=== PATIENT | female | born 1950 | race Caucasian/White ===

== ENCOUNTER 2016-08-31 15:15 | Inpatient (IN) | payer OTHER ==
[2016-08-31 15:36] VITALS: BMI 22.2
[2016-08-31] MEDS ORDERED: IPRATROPIUM BR 0.02% 0.5 MG/2.5 ML VIAL.NEB. NEB ONE (15:48)
[2016-08-31] MEDS ORDERED: ALBUTEROL SO4 0.083% IH SOL 2.5 MG/3 ML VIAL.NEB. NEB ONE ×2 (15:48→16:44)
[2016-08-31] MEDS ORDERED: predniSONE 20 MG TABLET (UD) PO ONE (15:48)
[2016-08-31] MEDS ORDERED: PIPERACILLIN/TAZOB 3.375 GM/50 ML PRE-DOCKED IVPB ONE (15:48)
--- NOTE | 2016-08-31 15:58 | PDOC ---
History of Present Illness - General History Source: Patient, Long-Term Records, Old Records Exam Limitations: No Limitations <Black Vargas - Last Filed: 08/31/16 18:17> - General History Source: Patient Exam Limitations: No Limitations - History of Present Illness Initial Comments: 08/31/16 16:01 The patient is a 66 year old female with a significant past medical history of COPD, cigarette smoking, pressure ulcers secondary to immobility, sent from [facility] by ambulance to the Emergency Department with shortness of breath, low O2 sat (88), and UTI. The patient reports that she has had shortness of breath, and a cough for weeks that has become worse over the past 2 to 3 days. She describes the cough as nonproductive, as it stays in her chest. She admits to nebulizer treatments with little relief, as well as Prednisone started 2 days ago which she discontinued. She states that she recently had a chest XRay which was negative. She also reports that her blood pressure and heart rate have been high. The patient states that she was informed hours ago that she also has a UTI. Patient has multiple pressure ulcers due to immobility. The patient denies chest pain, palpitations, and diaphoresis. Patient denies fever, or chills. Patient denies nausea, vomiting, and diarrhea. Patient denies headache, dizziness, and visual changes. 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) COPD: Yes Psychiatric Problems: Yes (ANXIETY) Other medical history: Vit d deficiency, mUSCLE WEAKNESS, PRESSURE ULCERS - Surgical History Cardiac Surgery: Yes (AAtrial septal defect repair 1962) - Psycho/Social/Smoking Cessation Hx Suicidal Ideation: No Smoking History: Current every day smoker Have you smoked in the past 12 months: Yes Number of Cigarettes Smoked Daily: 4 Information on smoking cessation initiated: No Hx Alcohol Use: No Drug/Substance Use Hx: No <Black Vargas - Last Filed: 08/31/16 18:17> <Malinda Tyson - Last Filed: 08/31/16 18:20> - Past Medical History Allergies/Adverse Reactions: Allergies Allergy/AdvReac Type Severity Reaction Status Date / Time epinephrine Allergy Verified 08/31/16 15:42 procaine Allergy Verified 08/31/16 15:42 sulfamethoxazole Allergy Verified 08/31/16 15:42 trimethoprim Allergy Verified 08/31/16 15:42 Home Medications: Ambulatory Orders Albuterol 0.083% Nebulizer Bella [Ventolin 0.083%] 1 neb NEB QID PRN 08/31/16 Amino Acids/Protein Hydrolys [Pro-Stat Liquid] 30 ml PO BID 08/31/16 Amox-Tr/K Cl [Augmentin - 875Mg Tablet] 1 tab PO BID 08/31/16 Ascorbic Acid [Vitamin C -] 500 mg PO DAILY 08/31/16 Azithromycin [Zithromax -] 1 tab PO DAILY 08/31/16 Baclofen 10 mg PO DAILY 08/31/16 Calcium Carbonate/Vitamin D3 [Eq Calcium 500 + Vit D 400 Tab] 1 each PO BID 04/18 Citalopram Hydrobromide [Celexa -] 20 mg PO DAILY 08/31/16 Diazepam [Valium] 5 mg PO HS 08/31/16 Docusate Sodium [Colace -] 100 mg PO DAILY 08/31/16 Enoxaparin [Lovenox -] 40 mg SQ DAILY 08/31/16 Guaifenesin [Robitussin -] 10 ml PO Q6H PRN 08/31/16 Loperamide HCl [Imodium A-D] 2 mg PO PRN 08/31/16 Magnesium Hydroxide [Milk of Magnesia] 400 mg PO PRN 08/31/16 Na Phos,M-B/Na Phos,Di-Ba [Fleet Enema] 133 ml RC PRN 08/31/16 Nystatin/Triamcinolone Top Cr [Mycolog II Cream -] 1 applic TP BID 08/31/16 Sennosides [Senna] 8.6 mg PO HS 08/31/16 Zinc Sulfate 220 mg PO DAILY 08/31/16 Review of Systems - Review of Systems Able to Perform ROS?: Yes Comments:: 08/31/16 16:01 CONSTITUTIONAL: Reported: + tachycardic, + high blood pressure No reported: Fever, Chills, Diaphoresis, Generalized Weakness, Malaise, Loss of Appetite HEENT: No reported: Rhinorrhea, Nasal Congestion, Throat Pain, Throat Swelling, Difficulty Swallowing, Mouth Swelling, Ear Pain, Eye Pain, Visual Changes CARDIOVASCULAR: No reported: Chest Pain, Syncope, Palpitations, Irregular Heart Rate, Lightheadedness, Peripheral Edema RESPIRATORY: Reported: + nonproductive cough, + shortness of breath, + low O2 sat No reported: SOB with Exertion, Orthopnea, Wheezing, Stridor, Hemoptysis GASTROINTESTINAL: No reported: Abdominal pain, Abdominal Distension, Nausea, Vomiting, Diarrhea, Constipation, Melena, Hematochezia GENITOURINARY: Reported: + UTI No reported: Frequency, Urgency, Hesitancy, Flank Pain, Genital Pain MUSCULOSKELETAL: No reported: Myalgia, Arthralgia, Joint Swelling, Back pain, Neck Pain SKIN: Reported: + pressure ulcers No reported: Rash, Itching, Pallor HEMATOLOGIC/IMMUNOLOGIC: No reported: Easy Bleeding, Easy Bruising, Lymphadenopathy, Frequent infections ENDOCRINE: No reported: Unexplained Weight Gain, Unexplained Weight Loss, Heat Intolerance , Cold Intolerance NEUROLOGIC: No reported: Headache, Focal Weakness, Paresthesias, Vertigo, Lightheadedness, Unsteady Gait, Seizure, Mental Status Changes, Incontinence PSYCHIATRIC: No reported: Anxiety, Depression <Malinda Tyson - Last Filed: 08/31/16 18:20> *Physical Exam - Vital Signs Last Vital Signs Temp Pulse Resp BP Pulse Ox 98 F 58 L 24 171/99 93 L 08/31/16 15:30 08/31/16 15:30 08/31/16 15:30 08/31/16 15:30 08/31/16 15:41 <Black Vargas - Last Filed: 08/31/16 18:17> - Vital Signs Last Vital Signs Temp Pulse Resp BP Pulse Ox 98 F 58 L 24 171/99 93 L 08/31/16 15:30 08/31/16 15:30 08/31/16 15:30 08/31/16 15:30 08/31/16 15:56 - Physical Exam Comments: 08/31/16 17:09 GENERAL: The patient is awake, alert, and fully oriented, Nontoxic - in no acute distress. HEAD: Normocephalic, atraumatic. EYES: extraocular movements intact, sclera anicteric, conjunctiva clear. ENT: Normal voice, Moist mucous membranes. NECK: Normal range of motion, No JVD LUNGS: Diffuse expiratory wheezing. Breath sounds equal, clear to auscultation bilaterally. No rhonchi, no rales. HEART: Regular rate and rhythm, normal S1 and S2 without murmur, rub or gallop. ABDOMEN: Soft, nontender, normoactive bowel sounds. No guarding, no rebound. No masses. No CVA tenderness EXTREMITIES: Normal range of motion, no edema. No clubbing or cyanosis. No cords , erythema, or tenderness. NEUROLOGICAL: No facial asymmetry, Normal speech, normal gait. PSYCH: Normal mood, normal affect. SKIN: Large stage 3 right gluteal ulcer, large sacral ulcer, left lower gluteal stage 4 ulcer with mild yellow drainage. <Malinda Tyson - Last Filed: 08/31/16 18:20> Heart Score/ECG Review #1 ECG reviewed & interpreted by me at: 16:00 08/31/16 16:11 NSR 67, no std/veto, normal axis, normal intervals, QTC 424 msec <Black Vargas - Last Filed: 08/31/16 18:17> ED Treatment Course - LABORATORY CBC & Chemistry Diagram: 08/31/16 16:15 08/31/16 16:15 - RADIOLOGY Radiology Studies Ordered: Category Date Time Status CHEST X-RAY PORTABLE* [RAD] Stat Radiology 08/31/16 15:47 Ordered <Blcak Vargas - Last Filed: 08/31/16 18:17> - LABORATORY CBC & Chemistry Diagram: 08/31/16 16:15 08/31/16 16:15 - RADIOLOGY Radiograph Interpretation: 08/31/16 16:15 Chest XRay As reviewed by Dr. Jose Avila IMPRESSION: Borderline cardiomegaly and mild atelectatic changes in the left lung base. <Malinda Tyson - Last Filed: 08/31/16 18:20> Medical Decision Making - Medical Decision Making 08/31/16 15:57 A portion of this note was documented by scribe services under my direction. I have reviewed the details of the note, within reason, and agree with the documentation with the following case summary and management plan written by me. Patient treated in the ED. Nursing notes are reviewed and incorporated into the medical decision-making. Vital signs reviewed. Peripheral IV access obtained by the nurse, laboratory studies are drawn and sent, reviewed and interpreted by myself. Vital Signs Temp Pulse Resp BP Pulse Ox 98 F 58 L 24 171/99 93 L 08/31/16 15:30 08/31/16 15:30 08/31/16 15:30 08/31/16 15:30 08/31/16 15:41 66-year-old female with history of COPD, squamous cell carcinoma of the breast, , multiple gluteal ulcers presents with shortness of breath. The patient reports 2-3 days of difficulty breathing and chest congestion. Denies fevers or chills or chest pain. States she's been having difficulty breathing. Was noted at [facility] to have an O2 saturation of 88% on RA. Patient was also instantly noted to be diagnosed with urinary tract infection. Was noted to have wound culture from August 29 to have positive for Proteus Mirabella's and Escherichia coli. This was pansensitive. As of note, patient also had on August 24, a biopsy of the gluteal ulcer but the results are pending. I suspect the patient is having COPD exacerbation. However, we'll also need to evaluate for urinary tract infection in addition to her gluteal ulcer potential infection. No sepsis protocol initiated. We'll start Zosyn. We'll likely need to add on vancomycin and azithromycin as well. We'll give nebs and prednisone and admit the patient to hospital. 08/31/16 18:17 Chest xray reviewed. No obvious infiltrates. UA pending. CBC, BMP 08/31/16 16:15 08/31/16 16:15 CMP Sodium 135 mmol/L (136-145) L 08/31/16 16:15 Potassium 4.8 mmol/L (3.5-5.1) 08/31/16 16:15 Chloride 94 mmol/L (98-107) L 08/31/16 16:15 Carbon Dioxide 28 mmol/L (21-32) 08/31/16 16:15 Anion Gap 13 (8-16) 08/31/16 16:15 BUN 12 mg/dL (7-18) 08/31/16 16:15 Creatinine 0.4 mg/dL (0.55-1.02) L 08/31/16 16:15 Creat Clearance w eGFR > 60 (>60) 08/31/16 16:15 Random Glucose 97 mg/dL (74-106) 08/31/16 16:15 Lactic Acid 1.0 mmol/L (0.4-2.0) 08/31/16 16:15 Calcium 9.3 mg/dL (8.5-10.1) 08/31/16 16:15 Total Bilirubin 0.2 mg/dL (0.2-1.0) 08/31/16 16:15 AST 20 U/L (15-37) 08/31/16 16:15 ALT 20 U/L (12-78) 08/31/16 16:15 Alkaline Phosphatase 132 U/L (45-117) H 08/31/16 16:15 Creatine Kinase 50 IU/L (26-192) 08/31/16 16:15 Troponin I < 0.02 ng/ml (0.00-0.05) 08/31/16 16:15 B-Natriuretic Peptide 235.71 pg/ml (5-125) H 08/31/16 16:15 Total Protein 6.5 g/dl (6.4-8.2) 08/31/16 16:15 Albumin 2.4 g/dl (3.4-5.0) L 08/31/16 16:15 Pt was given nebs and prednisone with some improvement, but with some persistent wheezing. O2 saturation is still high 80s. Improved with nasal canula. Pt given vanc and zosyn. Given these findings, decision was made to admit the patient. Case discussed with DR. Monae who accepts the patient for telemetry admission. Case discussed in detail with admitting physician including history, physical exam and ancillary studies. Admitting physician has assumed care for the patient, will follow all pending diagnostics and will complete the evaluation and treatment. <Black Vargas - Last Filed: 08/31/16 18:17> - Medical Decision Making 08/31/16 18:14 Dr. Monae was called at his office at 5:50. Awaiting call back. Dr. Monae was called at his office at 6:13. Awaiting call back. 08/31/16 18:16 Dr. Monae returned call at 6:[address] Vargas about the patient's care. <Malinda Tyson - Last Filed: 08/31/16 18:20> *DC/Admit/Observation/Transfer - Discharge Dispostion Admit: Yes <Black Vargas - Last Filed: 08/31/16 18:17> - Attestations Scribe Attestion: 08/31/16 16:02 Documentation prepared by Malinda Tyson, acting as medical education specialist for Black Vargas MD. <Malinda Tyson - Last Filed: 08/31/16 18:20> Diagnosis at time of Disposition: Wound infection, COPD exacerbation, Hypoxia - Referrals Referrals: Javed Ball [Primary Care Provider] -
[2016-08-31] MEDS ORDERED: PIPERACILLIN/TAZOB 3.375 GM 50 ML IVPB ONE (16:44)
[2016-08-31] MEDS ORDERED: predniSONE 20 MG TABLET (UD) ONE (16:44)
[2016-08-31 16:51] LABS: BASOPHIL 0.2 % (0-2.0); EOSINOPHIL 0.6 % (0-4.5); MCH 30.3 pg (25.7-33.7); MCHC 33.1 g/dl (32.0-36.0); MEAN CELL VOLUME 91.8 fl (80-96); NEUTROPHILS 86.3 % (42.8-82.8); PLATELET COUNT 368 K/MM3 (134-434); RDW 13.1 % (11.6-15.6)
[2016-08-31] MEDS ORDERED: methylPREDNISolone NA SUCC 125 MG/2 ML VIAL IVPB ONE (16:52)
[2016-08-31] MEDS ORDERED: methylPREDNISolone NA SUCC 125 MG/2 ML VIAL ONE (16:53)
[2016-08-31 17:16] LABS: ALBUMIN 2.4 g/dl (3.4-5.0); ANION GAP 13 (8-16); BILIRUBIN,TOTAL 0.2 mg/dL (0.2-1.0); CALCIUM 9.3 mg/dL (8.5-10.1); CO2 28 mmol/L (21-32); CREATININE 0.4 mg/dL (0.55-1.02); GLUCOSE,RANDOM 97 mg/dL (74-106); SGOT/AST 20 U/L (15-37); SGPT/ALT 20 U/L (12-78); TOT PROT 6.5 g/dl (6.4-8.2)
[2016-08-31 17:18] LABS: ALK PHOS 132 U/L (45-117); TROPONIN I < 0.02 ng/ml (0.00-0.05)
[2016-08-31] MEDS ORDERED: VANCOMYCIN 1,000 MG in DEXTROSE 5%-WATER - 250 ML IVPB ONE (17:52)
[2016-08-31] MEDS ORDERED: VANCOMYCIN 1 GRAM (PRE-DOCKED) 250 ML IVPB ONE (18:17)
[2016-08-31 18:28] LABS: INR 1.18 (0.82-1.09)
[2016-08-31 18:31] LABS: ACTIVATED PTT 28.1 SECONDS (26.9-34.4)
[2016-08-31] MEDS ORDERED: ALBUTEROL SO4 0.083% IH SOL 2.5 MG/3 ML VIAL.NEB. NEB PRN (20:24)
[2016-08-31] MEDS ORDERED: SODIUM PHOSPHATE/NA BIPHOS 133 ML ENEMA RC PRN (20:30)
[2016-08-31] MEDS: diazePAM 5 MG TABLET PO SCH (22:41)
[2016-08-31] MEDS: SENNOSIDES 8.6MG TABLET (FP) PO SCH (22:41)
[2016-08-31] MEDS: AMINO ACIDS/PROTEIN HYDROLYS 30 ML LIQUID.PKT PO SCH (22:41)
[2016-09-01] MEDS: PIPERACILLIN/TAZOB 3.375 GM/50 ML PRE-DOCKED IVPB SCH ×3 (02:08→10:33)
[2016-09-01 07:24] LABS: BASOPHIL 0.1 % (0-2.0); MCH 31.3 pg (25.7-33.7); MCHC 34.4 g/dl (32.0-36.0); MEAN CELL VOLUME 91.1 fl (80-96); NEUTROPHILS 90.6 % (42.8-82.8); PLATELET COUNT 328 K/MM3 (134-434); RDW 13.1 % (11.6-15.6); WHITE BLOOD COUNT 9.9 K/mm3 (4.0-10.0)
[2016-09-01 07:37] LABS: ANION GAP 9 (8-16); BILIRUBIN,TOTAL 0.3 mg/dL (0.2-1.0); CALCIUM 8.7 mg/dL (8.5-10.1); CO2 30 mmol/L (21-32); COCKROFT - GAULT 152.575; CREATININE 0.3 mg/dL (0.55-1.02); GLUCOSE,RANDOM 130 mg/dL (74-106); MAGNESIUM 2.3 mg/dL (1.8-2.4); SGOT/AST 12 U/L (15-37); SGPT/ALT 18 U/L (12-78); TOT PROT 5.7 g/dl (6.4-8.2)
[2016-09-01 07:39] LABS: ALK PHOS 111 U/L (45-117); TROPONIN I < 0.02 ng/ml (0.00-0.05)
--- NOTE | 2016-09-01 09:38 | EKG ---
Test Reason : Blood Pressure : / mmHG Vent. Rate : 050 BPM Atrial Rate : 050 BPM P-R Int : 136 ms QRS Dur : 080 ms QT Int : 426 ms P-R-T Axes : 103 001 125 degrees QTc Int : 388 ms SINUS BRADYCARDIA WITH MARKED SINUS ARRHYTHMIA NONSPECIFIC T WAVE ABNORMALITY ABNORMAL ECG Confirmed by RACHEL MILLAN MD ([id number]) on 09/01/2016 9:38:14 AM Referred By: LAURA WILSON Confirmed By:RACHEL MILLAN MD
--- NOTE | 2016-09-01 09:48 | EKG ---
Test Reason : Blood Pressure : / mmHG Vent. Rate : 067 BPM Atrial Rate : 067 BPM P-R Int : 144 ms QRS Dur : 068 ms QT Int : 402 ms P-R-T Axes : 000 002 051 degrees QTc Int : 424 ms POOR DATA QUALITY, INTERPRETATION MAY BE ADVERSELY AFFECTED SINUS RHYTHM WITH PREMATURE SUPRAVENTRICULAR COMPLEXES NO PREVIOUS ECGS AVAILABLE Confirmed by RACHEL MILLAN MD ([id number]) on 09/01/2016 9:48:24 AM Referred By: Confirmed By:RACHEL MILLAN MD
[2016-09-01] MEDS: NYSTATIN/TRIAMCINOLONE TOPICAL CREAM 15 GM TUBE TP SCH ×2 (10:00→22:27)
[2016-09-01] MEDS: CITALOPRAM HYDROBROMIDE 20 MG TABLET (FP) PO SCH (10:32)
[2016-09-01] MEDS: DOCUSATE SODIUM 100 MG CAPSULE (FP) PO SCH (10:32)
[2016-09-01] MEDS: ASCORBIC ACID 500 MG TABLET (FP) PO SCH (10:32)
[2016-09-01] MEDS: BACLOFEN 10 MG TABLET (FP) PO SCH (10:32)
[2016-09-01] MEDS: ENOXAPARIN NA (PORCINE) 40 MG/0.4 ML DISP.SYRIN SQ SCH (10:32)
[2016-09-01] MEDS: ZINC SULFATE 220 MG CAPSULE (FP) PO SCH (10:32)
[2016-09-01] MEDS: AMINO ACIDS/PROTEIN HYDROLYS 30 ML LIQUID.PKT PO SCH ×2 (10:35→22:28)
--- NOTE | 2016-09-01 10:38 | PN ---
Progress Note (short form) - Note Progress Note: ID Consult dictated Acute exacerbation COPD Acute bronchitis/possible LLL pneumonia UTI Decubitus ulcers Pending c/s, empiric ceftriaxone/ flagyl
--- NOTE | 2016-09-01 11:22 | HP ---
Admitting History and Physical - Primary Care Physician PCP: Rajesh Marrero - Admission Chief Complaint: DYSPNEA/SEPSIS/PNEUMONIA History of Present Illness: The patient is a 66 year old female with a significant past medical history of COPD, cigarette smoking, pressure ulcers secondary to immobility, sent from [facility] by ambulance to the Emergency Department with shortness of breath, low O2 sat (88), and UTI. The patient reports that she has had shortness of breath, and a cough for weeks that has become worse over the past 2 to 3 days. She describes the cough as nonproductive, as it stays in her chest. She admits to nebulizer treatments with little relief, as well as Prednisone started 2 days ago which she discontinued. She states that she recently had a chest XRay which was negative. She also reports that her blood pressure and heart rate have been high. The patient states that she was informed hours ago that she also has a UTI. Patient has multiple pressure ulcers due to immobility. The patient denies chest pain, palpitations, and diaphoresis. Patient denies fever, or chills. Patient denies nausea, vomiting, and diarrhea. Patient denies headache, dizziness, and visual changes. 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 ...: No - Past Surgical History Past Surgical History: Yes: Cholecystectomy, Tonsillectomy - Advance Directives Advance Directives: Yes: Health Care Proxy - Smoking History Smoking history: Current every day smoker Have you smoked in the past 12 months: Yes Aproximately how many cigarettes per day: 4 - Alcohol/Substance Use Hx Alcohol Use: No Home Medications - Allergies Allergies/Adverse Reactions: Allergies Allergy/AdvReac Type Severity Reaction Status Date / Time epinephrine Allergy Verified 08/31/16 15:42 procaine Allergy Verified 08/31/16 15:42 sulfamethoxazole Allergy Verified 08/31/16 15:42 trimethoprim Allergy Verified 08/31/16 15:42 - Home Medications Home Medications: Ambulatory Orders Albuterol 0.083% Nebulizer Bella [Ventolin 0.083%] 1 neb NEB QID PRN 08/31/16 Amino Acids/Protein Hydrolys [Pro-Stat Liquid] 30 ml PO BID 08/31/16 Amox-Tr/K Cl [Augmentin - 875Mg Tablet] 1 tab PO BID 08/31/16 Ascorbic Acid [Vitamin C -] 500 mg PO DAILY 08/31/16 Azithromycin [Zithromax -] 1 tab PO DAILY 08/31/16 Baclofen 10 mg PO DAILY 08/31/16 Calcium Carbonate/Vitamin D3 [Eq Calcium 500 + Vit D 400 Tab] 1 each PO BID 04/18 Citalopram Hydrobromide [Celexa -] 20 mg PO DAILY 08/31/16 Diazepam [Valium] 5 mg PO HS 08/31/16 Docusate Sodium [Colace -] 100 mg PO DAILY 08/31/16 Enoxaparin [Lovenox -] 40 mg SQ DAILY 08/31/16 Guaifenesin [Robitussin -] 10 ml PO Q6H PRN 08/31/16 Loperamide HCl [Imodium A-D] 2 mg PO PRN 08/31/16 Magnesium Hydroxide [Milk of Magnesia] 400 mg PO PRN 08/31/16 Na Phos,M-B/Na Phos,Di-Ba [Fleet Enema] 133 ml RC PRN 08/31/16 Nystatin/Triamcinolone Top Cr [Mycolog II Cream -] 1 applic TP BID 08/31/16 Sennosides [Senna] 8.6 mg PO HS 08/31/16 Zinc Sulfate 220 mg PO DAILY 08/31/16 Review of Systems - Review of Systems Constitutional: reports: Lethargy, Loss of Appetite, Malaise, Weakness Eyes: reports: No Symptoms HENT: reports: No Symptoms Neck: reports: No Symptoms Cardiovascular: reports: No Symptoms Respiratory: reports: SOB, SOB on Exertion Gastrointestinal: reports: No Symptoms Genitourinary: reports: No Symptoms Musculoskeletal: reports: Muscle Weakness Integumentary: reports: Wound Neurological: reports: Other Hematology/Lymphatic: reports: No Symptoms Psychiatric: reports: Anxiety, Paranoia Physical Examination Vital Signs: Vital Signs Temperature 98 F 09/01/16 06:00 Pulse Rate 64 09/01/16 06:00 Respiratory Rate 20 09/01/16 06:00 Blood Pressure 107/56 09/01/16 06:00 O2 Sat by Pulse Oximetry (%) 93 L 08/31/16 21:00 Findings/Remarks: IN BED, PARANOID, POOR HISTORIAN Constitutional: Yes: Moderate Distress Eyes: Yes: WNL HENT: Yes: WNL Neck: Yes: WNL Cardiovascular: Yes: WNL Respiratory: Yes: Cough, On Nasal O2, Rhonchi, SOB, SOB on Exertion Gastrointestinal: Yes: WNL Renal/: Yes: WNL Musculoskeletal: Yes: Muscle Weakness Extremities: Yes: WNL, Other Edema: No Peripheral Pulses WNL: Yes Integumentary: Yes: Skin Tear Wound/Incision: Yes: Dressing Dry and Intact Neurological: Yes: Pre-Existing Deficit ...Motor Strength: LLE, RLE (HEEL ULCERS STAGE 1-2 WITH DRESSING) Psychiatric: Yes: Other Labs: CBC, BMP 09/01/16 05:35 09/01/16 05:35 Problem List - Problems (1) COPD exacerbation Assessment/Plan: ACUTE ON CHRONIC COPD Code(s): J44.1 - CHRONIC OBSTRUCTIVE PULMONARY DISEASE W (ACUTE) EXACERBATION (2) Hypoxia Code(s): R09.02 - HYPOXEMIA (3) Wound infection Code(s): T14.8 - OTHER INJURY OF UNSPECIFIED BODY REGION L08.9 - LOCAL INFECTION OF THE SKIN AND SUBCUTANEOUS TISSUE, UNSP (4) Pneumonia Code(s): J18.9 - PNEUMONIA, UNSPECIFIED ORGANISM Qualifiers: Pneumonia type: due to unspecified organism Lung location: unspecified part of lung Assessment/Plan IV ABX STEROIDS IV INCENTIVE SPIROMETRY OOB TO CHAIR/PT RUBÉN ZIMMERS 02 SUPPORT
--- NOTE | 2016-09-01 11:24 | CONS ---
INFECTIOUS DISEASE CONSULTATION: DATE OF CONSULTATION: DATE OF DICTATON: 09/01/2016 HISTORY OF PRESENT ILLNESS: 66-year-old female, [facility] resident, evaluated for sepsis. She was [facility] to the [facility] the [facility] with a 2-3 day history of worsening shortness of breath and cough. Patient reports history of chronic dyspnea. She had worsening cough for 2-3 days prior to admission associated with some scanty white sputum production. She was treated with bronchodilators and prednisone without significant improvement. She was found to be hypoxemic at the [facility] with an O2 saturation of 88%. In addition, the patient was recently diagnosed with an E. coli urinary tract infection. She complains of dyspnea at rest and dry cough. She also has urinary frequency and urgency. She denies any dysuria or hematuria. PAST MEDICAL HISTORY: Positive for COPD, history of breast cancer status post recent mastectomy, peripheral neuropathy, decubitus ulcers. ALLERGIES: EPINEPHRINE, PROCAINE, SULFA. MEDICATIONS: Ipratropium, Colace, prednisone, baclofen, Lovenox, acetaminophen, Valium, albuterol. SOCIAL HISTORY: [facility]f resident, former smoker. SYSTEMS REVIEW: Neurologic: No loss of consciousness, seizure activity, focal weakness. Cardiac: Negative chest pain or palpitations. Respiratory: As per history of present illness. Gastrointestinal: Negative vomiting or diarrhea. Genitourinary: Positive for urinary tract infection. LAB DATA: White count 9.9, hematocrit 34.5, platelet count 328. BUN 11, creatinine 0.3. Chest x-ray shows cardiomegaly with atelectasis, possible left lower lobe infiltrate. Blood cultures are pending. Urine culture from the [facility] positive for E. coli, sensitive ceftriaxone. PHYSICAL EXAMINATION: General: The patient is awake and alert, in no acute distress. Breathing is nonlabored. Vital signs: Temperature 98. Blood pressure 107/56. Pulse 64/regular. Respirations 20 per minute. HEENT: Sclerae anicteric. Heart sounds: S1, S2. Lungs: Crepitations at the right base, greater than left base. Breasts: Patient is status post left mastectomy. Abdomen: Soft, no tenderness elicited. No mass, rebound or rigidity. Extremities: Negative for edema. Skin: There is a decubitus ulcer present on the right heel with some drainage. There is also a stage IV sacral decubitus ulcer, which is deep; however, no purulence or foul odor. Left gluteal ulcer present. IMPRESSION: 1. Acute exacerbation, COPD. 2. Acute bronchitis, possible left lower lobe pneumonia. 3. Urinary tract infection, E. coli. 4. Decubitus ulcers. PLAN: 1. Pending cultures and sepsis workup, empiric antibiotic coverage with ceftriaxone 2 gm IV piggyback daily, Flagyl 500 mg IV piggyback every 8 hours. 2. Sputum culture. 3. Urine Legionella antigen. 4. Local wound care. 5. Surgical evaluation of decubitus ulcers. 6. Will follow. Thank you for the kind referral. RACHEL EUGENE M.D. [id number]
[2016-09-01] MEDS: METRONIDAZOLE 500 MG PREMIXED 100 ML IVPB SCH ×2 (11:30→18:58)
--- NOTE | 2016-09-01 12:18 | PN ---
Progress Note (short form) - Note Progress Note: PULMONARY CONSULTATION DICTATED 09/01/16 IMP ACUTE HYPOXEMIC RESPIRATORY FAILURE COPD EXACERBATION LIKELY PNEUMONIA BRONCHITIS METASTATIC BREAST CA LOWER EXTREMITY WEAKNESS PLAN ANTIBIOTICS PER ID INHALED BRONCHODILATORS O2 TO MAINTAIN O2 SAT 90% SHORT COURSE SOLUMEDROL CHEST CT DR FONUTAIN Problem List - Problems (1) COPD exacerbation Code(s): J44.1 - CHRONIC OBSTRUCTIVE PULMONARY DISEASE W (ACUTE) EXACERBATION (2) Hypoxia Code(s): R09.02 - HYPOXEMIA (3) Pneumonia Code(s): J18.9 - PNEUMONIA, UNSPECIFIED ORGANISM Qualifiers: Pneumonia type: due to unspecified organism Lung location: unspecified part of lung (4) Acute respiratory failure with hypoxemia Code(s): J96.01 - ACUTE RESPIRATORY FAILURE WITH HYPOXIA (5) Breast CA Code(s): C50.919 - MALIGNANT NEOPLASM OF UNSP SITE OF UNSPECIFIED FEMALE BREAST
--- NOTE | 2016-09-01 12:19 | CONSULT ---
Admitting History and Physical - Primary Care Physician PCP: Rajesh Marrero - Admission History of Present Illness: Per EMR: "Chief Complaint: DYSPNEA/SEPSIS/PNEUMONIA History of Present Illness: The patient is a 66 year old female with a significant past medical history of COPD, cigarette smoking, pressure ulcers secondary to immobility, sent from [facility] by ambulance to the Emergency Department with shortness of breath, low O2 sat (88), and UTI. The patient reports that she has had shortness of breath, and a cough for weeks that has become worse over the past 2 to 3 days. She describes the cough as nonproductive, as it stays in her chest. She admits to nebulizer treatments with little relief, as well as Prednisone started 2 days ago which she discontinued. She states that she recently had a chest XRay which was negative. She also reports that her blood pressure and heart rate have been high. The patient states that she was informed hours ago that she also has a UTI. 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 ...: No - Past Surgical History Past Surgical History: Yes: Cholecystectomy, Tonsillectomy - Advance Directives Advance Directives: Yes: Health Care Proxy - Smoking History Smoking history: Current every day smoker Have you smoked in the past 12 months: Yes Aproximately how many cigarettes per day: 4 - Alcohol/Substance Use Hx Alcohol Use: No History - Admission Reason For Visit: LOCAL INFECTION OF WOUND; HYPOXIA; COPD - Diagnostics X-ray: Report Reviewed - General Mental Status: Alert and Oriented, Awake and Alert, Able to Follow Commands Attention: Intact Ability to Follow Directions: Excellent Head/Neck Control: WFL - Hearing Hearing: Normal Hearing Aide: No Speech Evaluation - Communication Primary Language: ROMANIAN Communication: Yes: Within Normal Limits Oral Expression Ability: Yes: No Impairment - Speech Production Able to Make Needs Known: Yes: WNL Intelligibility: Yes: WNL - Speech Characteristics Voice Loudness: Normal Voice Pitch: Yes: Normal Voice Phonatory-based Quality: Yes: Normal Speech Pattern: Normal Speech Clarity: < 100% Nasal Resonance: Normal Articulation: Yes: Precise Rate of Speech: Intact - Language/Auditory Comprehension Follows: Yes: 2 Stage Simple Commands - Language/Verbal Expression Able to Respond to Simple Queries: Yes: WNL Able to Communicate Wants and Needs: Yes: WNL Functional Communication Status: Yes: WNL - Swallow Evaluation/Bedside Assessment Current Nutritional Intake: Regular, Thin Liquids Oral Secretions: Yes: WFL Dentition: Yes: Missing Teeth Facial Symmetry at Rest: Symmetrical Facial Symmetry on Retraction: Symmetrical Facial Movement: Controlled Sensation: Normal Against Resistance Opening: Normal Against Resistance Closing: Normal Pucker Lips: Normal Smile: Normal Lingual Movement: Normal Lingual Speed of Movement: Normal Lingual Movement Strgth Against Opposition: Normal Lingual Movement Characteristics: Normal Laryngeal Elevation: WFL Laryngeal Movement: Able to Palpate Rate of Intake: WFL Bolus Size: WFL Labial Seal: WFL Chewing: WFL Oral Prep Time: WFL A-P Transit: WFL Pocketing: None Timing of Swallow: WFL Coughing/Throat Clear: No Change in Voice: No Recommendations - Speech Evaluation, Impression/Plan Impression: Limited appetite. Pt was on reg diet/Ensure/prostat at [facility]. She reported not drinking Ensure as it "spiked her blood sugar." Refused prostat. Barely touched lunch. Counseled pt on need for Prostat to heal wounds. Agreed to try Glucerna - Disposition Discharge to: Shelter Facility - Dysphagia Impressions/Plan Swallowing Skills: [facility] Dysphagia Impressions: No Impairment *Silent aspiration: cannot be R/O at bedside - Recommendations Diet Consistency: Regular (soft) Medication Administration: Whole with water Liquids: Thin Liquids Supplement: Glucerna (vanilla), Other (prostat)
[2016-09-01] MEDS: methylPREDNISolone NA SUCC 40 MG/1 ML VIAL IVPB SCH ×2 (12:59→18:59)
[2016-09-01] MEDS: CEFTRIAXONE 2G/100 ML IVPB SCH (14:00)
--- NOTE | 2016-09-01 15:39 | CONSULT ---
Consult Consult Specialty:: Nephrology Reason for Consultation:: hyponatremia and to assess volume status - History of Present Illness Chief Complaint: cough and shortness of breath History of Present Illness: Pt is a 66 year old female with pmhx of COPD, pressure ulcers, immobility and UTI who was sent in from the [place] for SOB. She says she has had SOB and cough for the last few weeks. She says it became worse over last few days. She was found to be hyponatremic and a consult was called. She says she feels better today. She denies dysuria or hematuria. She appears comfortable. 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 Pulmonary: Yes: COPD ...: No - Past Surgical History Past Surgical History: Yes: Cholecystectomy, Tonsillectomy - Alcohol/Substance Use Hx Alcohol Use: No - Smoking History Smoking history: Current every day smoker Have you smoked in the past 12 months: Yes Aproximately how many cigarettes per day: 4 Home Medications - Allergies Allergies/Adverse Reactions: Allergies Allergy/AdvReac Type Severity Reaction Status Date / Time epinephrine Allergy Verified 08/31/16 15:42 procaine Allergy Verified 08/31/16 15:42 sulfamethoxazole Allergy Verified 08/31/16 15:42 trimethoprim Allergy Verified 08/31/16 15:42 - Home Medications Home Medications: Ambulatory Orders Albuterol 0.083% Nebulizer Bella [Ventolin 0.083%] 1 neb NEB QID PRN 08/31/16 Amino Acids/Protein Hydrolys [Pro-Stat Liquid] 30 ml PO BID 08/31/16 Amox-Tr/K Cl [Augmentin - 875Mg Tablet] 1 tab PO BID 08/31/16 Ascorbic Acid [Vitamin C -] 500 mg PO DAILY 08/31/16 Azithromycin [Zithromax -] 1 tab PO DAILY 08/31/16 Baclofen 10 mg PO DAILY 08/31/16 Calcium Carbonate/Vitamin D3 [Eq Calcium 500 + Vit D 400 Tab] 1 each PO BID 04/18 Citalopram Hydrobromide [Celexa -] 20 mg PO DAILY 08/31/16 Diazepam [Valium] 5 mg PO HS 08/31/16 Docusate Sodium [Colace -] 100 mg PO DAILY 08/31/16 Enoxaparin [Lovenox -] 40 mg SQ DAILY 08/31/16 Guaifenesin [Robitussin -] 10 ml PO Q6H PRN 08/31/16 Loperamide HCl [Imodium A-D] 2 mg PO PRN 08/31/16 Magnesium Hydroxide [Milk of Magnesia] 400 mg PO PRN 08/31/16 Na Phos,M-B/Na Phos,Di-Ba [Fleet Enema] 133 ml RC PRN 08/31/16 Nystatin/Triamcinolone Top Cr [Mycolog II Cream -] 1 applic TP BID 08/31/16 Sennosides [Senna] 8.6 mg PO HS 08/31/16 Zinc Sulfate 220 mg PO DAILY 08/31/16 Family Disease History - Family Disease History Family History: Denies Review of Systems - Review of Systems Constitutional: reports: Malaise Eyes: reports: No Symptoms HENT: reports: No Symptoms Neck: reports: No Symptoms Cardiovascular: reports: Shortness of Breath Respiratory: reports: Cough, SOB Genitourinary: reports: No Symptoms Musculoskeletal: reports: Muscle Weakness Physical Exam Vital Signs: Vital Signs Temperature 98 F 09/01/16 14:56 Pulse Rate 63 09/01/16 14:56 Respiratory Rate 20 09/01/16 14:56 Blood Pressure 99/48 09/01/16 14:56 O2 Sat by Pulse Oximetry (%) 93 L 08/31/16 21:00 Constitutional: Yes: Calm Eyes: Yes: Conjunctiva Clear HENT: Yes: Atraumatic Neck: Yes: Supple Cardiovascular: Yes: S1, S2 Respiratory: Yes: On Nasal O2 Gastrointestinal: Yes: Soft Renal/: Yes: Incontinence Musculoskeletal: Yes: Muscle Weakness Edema: No Neurological: Yes: Oriented Labs: CBC, BMP 09/01/16 05:35 09/01/16 05:35 Laboratory Tests 08/31/16 08/31/16 08/31/16 16:15 16:15 16:15 WBC 11.0 H Hgb 12.8 Plt Count 368 Sodium 135 L Potassium 4.8 Chloride Carbon Dioxide 28 Anion Gap 13 BUN 12 Creatinine B-Natriuretic Peptide 235.71 H 09/01/16 09/01/16 05:35 05:35 WBC 9.9 Hgb 11.9 Plt Count 328 Sodium 139 Potassium 4.4 Chloride 100 Carbon Dioxide 30 Anion Gap 9 BUN 11 Creatinine 0.3 L D B-Natriuretic Peptide Imaging - Results Chest X-ray: Report Reviewed Problem List - Problems (1) Pneumonia Code(s): J18.9 - PNEUMONIA, UNSPECIFIED ORGANISM Qualifiers: Pneumonia type: due to unspecified organism Lung location: unspecified part of lung (2) COPD (chronic obstructive pulmonary disease) Code(s): J44.9 - CHRONIC OBSTRUCTIVE PULMONARY DISEASE, UNSPECIFIED (3) Hyponatremia Code(s): E87.1 - HYPO-OSMOLALITY AND HYPONATREMIA Assessment/Plan Current Medications Generic Name Dose Route Start Last Admin Trade Name Freq PRN Reason Stop Dose Admin Acetaminophen 650 mg 08/31/16 20:27 Tylenol - PO Q4H PRN FEVER OR PAIN Albuterol Sulfate 1 amp 08/31/16 20:24 Ventolin 0.083% Nebulizer Soln - NEB Q6H PRN SHORT OF BREATH/WHEEZING Amino Acids 30 ml 08/31/16 22:00 09/01/16 10:35 Prosource No Carb Liquid Pkt PO Not Given BID SONI Ascorbic Acid 500 mg 09/01/16 10:00 09/01/16 10:32 Vitamin C - PO 500 mg DAILY SONI Administration Baclofen 10 mg 09/01/16 10:00 09/01/16 10:32 Lioresal - PO 10 mg DAILY SONI Administration Citalopram Hydrobromide 20 mg 09/01/16 10:00 09/01/16 10:32 Celexa - PO 20 mg DAILY SONI Administration Diazepam 5 mg 08/31/16 22:00 08/31/16 22:41 Valium - PO 5 mg HS SONI Administration Docusate Sodium 100 mg 09/01/16 10:00 09/01/16 10:32 Colace - PO 100 mg DAILY SONI Administration Enoxaparin Sodium 40 mg 09/01/16 10:00 09/01/16 10:32 Lovenox - SQ 40 mg DAILY SONI Administration Ceftriaxone Sodium 100 mls @ 200 mls/hr 09/01/16 10:45 Rocephin 2gm Ivpb (Pre-Docked) IVPB DAILY SONI Metronidazole 100 mls @ 100 mls/hr 09/01/16 10:45 Flagyl 500mg Premixed Ivpb - IVPB Q8H-IV SONI Methylprednisolone Sodium Succinate 40 mg 09/01/16 12:30 Solu-Medrol - IVPB Q8H-IV SONI Nystatin/Triamcinolone Acetonide 1 applic 08/31/16 22:00 Mycolog Ii Cream - TP BID SONI Senna 1 tab 08/31/16 22:00 08/31/16 22:41 Senna - PO 1 tab HS SONI Administration Sodium Phosphate 133 ml 08/31/16 20:30 Fleet Adult Rectal Enema - RC PRN PRN Zinc Sulfate 220 mg 09/01/16 10:00 09/01/16 10:32 Orazinc - PO 220 mg DAILY SONI Administration Impression 1. hyponatremia 2. copd 3. hx uti 4. possible PNA 5. malnutrition Plan - sodium is improved - encourage PO intake - monitor labs - no acute change in management - will follow PRN Dr Johansen
[2016-09-01] MEDS: diazePAM 5 MG TABLET PO SCH (22:00)
[2016-09-01] MEDS: SENNOSIDES 8.6MG TABLET (FP) PO SCH (22:28)
[2016-09-02] MEDS: METRONIDAZOLE 500 MG PREMIXED 100 ML IVPB SCH ×3 (01:21→17:39)
[2016-09-02] MEDS: methylPREDNISolone NA SUCC 40 MG/1 ML VIAL IVPB SCH ×3 (01:22→17:40)
[2016-09-02] MEDS: ENOXAPARIN NA (PORCINE) 40 MG/0.4 ML DISP.SYRIN SQ SCH (09:14)
[2016-09-02] MEDS: ASCORBIC ACID 500 MG TABLET (FP) PO SCH (09:15)
[2016-09-02] MEDS: CITALOPRAM HYDROBROMIDE 20 MG TABLET (FP) PO SCH (09:15)
[2016-09-02] MEDS: DOCUSATE SODIUM 100 MG CAPSULE (FP) PO SCH (09:15)
[2016-09-02] MEDS: BACLOFEN 10 MG TABLET (FP) PO SCH (09:15)
[2016-09-02] MEDS: ZINC SULFATE 220 MG CAPSULE (FP) PO SCH (09:15)
[2016-09-02] MEDS: AMINO ACIDS/PROTEIN HYDROLYS 30 ML LIQUID.PKT PO SCH ×2 (09:15→22:19)
[2016-09-02] MEDS: CEFTRIAXONE 2G/100 ML IVPB SCH (09:16)
[2016-09-02] MEDS: NYSTATIN/TRIAMCINOLONE TOPICAL CREAM 15 GM TUBE TP SCH ×2 (09:19→22:19)
--- NOTE | 2016-09-02 09:30 | PN ---
Progress Note (short form) - Note Progress Note: NEUROSURGERY CONSULT DICTATED Chart reviewed Pt examined CT reviewed Poor historian [facility] resident, H/o breast CA (squamous cell?), smoker/COPD, cigarette smoking , pressure ulcers secondary to immobility, c/o shortness of breath but no fever. Some coughs. Has been paralyzed in B legs since January 2016 and non- ambulatory since. Multiple pressure sores. + chronic loss of bowel and bladder control. Some upper back pain. 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 Obtain prior evaluation/diagnostic/treatment records of CA from PMD if available Med onc input CT guided bx if needed per oncology No chance of LE recovery given time onset and severity of LE motor paralysis >7 months ago Neurosurgical intervention will not restore neurological function and is therefore not recommended in this lady with already significant wasting and skin breaches Pt does not want to consider chemo Consider palliative XRT
--- NOTE | 2016-09-02 10:29 | CONS ---
DATE OF CONSULTATION: 09/01/2016 REFERRING PHYSICIAN: Rajesh Marrero MD HISTORY: The patient is a 66-year-old white female with a past medical history of COPD, history of metastatic breast cancer initially diagnosed apparently 20 years ago status post left mastectomy 1 year ago, history of neuropathy, pressure ulcer secondary to immobility, history of tobacco use and currently still smoking a few cigarettes a day admitted to [facility] and [facility] secondary to low O2 saturations. The patient apparently the past few days has had a cough, which is minimally productive. She denies any chills or fevers. She denies any nausea or vomiting. She apparently was started on nebulized treatment as well as prednisone for 2 days, which was discontinued. She was also started on antibiotic therapy. She had a chest x-ray while in the [facility], which was apparently negative. She was noted to have low O2 saturations in the [facility] at which time she was transferred to [facility] ER. In the ER she was found to have COPD exacerbation and possible left lower lobe pneumonia. She was admitted to the floor and started on antibiotic therapy. The patient denies any hemoptysis. Denies any chest pains or palpitations. There is no history of occupational expose to chemicals or fumes. PAST MEDICAL HISTORY: Includes metastatic breast cancer, COPD, atrial septal defect repair in 1962, muscle weakness, pressure ulcers, vitamin D deficiency, anxiety. REVIEW OF SYSTEMS: No orthopnea. Positive cough. Positive shortness of breath. No fever, no chills, no hemoptysis, no abdominal pain. Positive lower extremity weakness. CURRENT MEDICATIONS: Include Tylenol, Rocephin, Flagyl, Lovenox, Celexa, Valium, albuterol, Colace, Senna, Fleet enema, , and vitamin C. PHYSICAL EXAMINATION: General: The patient is a thin white female awake and alert in no acute distress. Vital Signs: She is currently afebrile. Blood pressure 107/56, respiratory rate is 20, O2 saturation is 93% on 2 L. HEENT: Normocephalic and atraumatic. Neck: Supple. Heart: Regular S1, S2. Chest: Scattered bilateral rhonchi. Abdomen: Soft. Bowel sounds positive. Extremities: No cyanosis or edema. LABORATORIES: WBC 9.9, hemoglobin 11.9, hematocrit 35.5 with a platelet count of 328,000. There are 90 polys, 6 lymphocytes, and 3 monocytes. INR is 1.18, BUN 11, creatinine 0.3. BNP is 235. Chest x-ray possible left basilar consolidation. IMPRESSION: 1. Acute hypoxemic respiratory failure most likely secondary to possible pneumonia. 2. Chronic obstructive pulmonary disease exacerbation. 3. Bronchitis. 4. History of metastatic breast cancer. 5. Anxiety. 6. Neuropathy, lower extremity weakness. PLAN: IV antibiotics as per Infectious Disease. Inhaled bronchodilators. Supplemental O2. Obtain CT scan of the chest. Sputum C and S. Short course of Solu-Medrol. MODESTA FOUNTAIN M.D. [id number]
--- NOTE | 2016-09-02 10:36 | PN ---
Progress Note, Physician History of Present Illness: 66 year old female with a significant past medical history of Breast Ca-s/p mastectomy, COPD, cigarette smoking, pressure ulcers secondary to immobility, sent from [facility] by ambulance to the Emergency Department with shortness of breath, low O2 sat (88), and UTI. The patient reports that she has had shortness of breath, and a cough for weeks that has become worse over the past 2 to 3 days. - Current Medication List Current Medications: Active Medications Acetaminophen (Tylenol -) 650 mg PO Q4H PRN PRN Reason: FEVER OR PAIN Albuterol Sulfate (Ventolin 0.083% Nebulizer Soln -) 1 amp NEB Q6H PRN PRN Reason: SHORT OF BREATH/WHEEZING Amino Acids (Prosource No Carb Liquid Pkt) 30 ml PO BID [facility] Last Admin: 09/02/16 09:15 Dose: 30 ml Ascorbic Acid (Vitamin C -) 500 mg PO DAILY [facility] Last Admin: 09/02/16 09:15 Dose: 500 mg Baclofen (Lioresal -) 10 mg PO DAILY [facility] Last Admin: 09/02/16 09:15 Dose: 10 mg Citalopram Hydrobromide (Celexa -) 20 mg PO DAILY [facility] Last Admin: 09/02/16 09:15 Dose: Not Given Diazepam (Valium -) 5 mg PO HS [facility] Last Admin: 09/01/16 22:00 Dose: Not Given Docusate Sodium (Colace -) 100 mg PO DAILY [facility] Last Admin: 09/02/16 09:15 Dose: 100 mg Enoxaparin Sodium (Lovenox -) 40 mg SQ DAILY [facility] Last Admin: 09/02/16 09:14 Dose: 40 mg Ceftriaxone Sodium (Rocephin 2gm Ivpb (Pre-Docked)) 100 mls @ 200 mls/hr IVPB DAILY [facility] Last Admin: 09/02/16 09:16 Dose: 200 mls/hr Metronidazole (Flagyl 500mg Premixed Ivpb -) 100 mls @ 100 mls/hr IVPB Q8H-IV [facility] Last Admin: 09/02/16 09:15 Dose: 100 mls/hr Methylprednisolone Sodium Succinate (Solu-Medrol -) 40 mg IVPB Q8H-IV [facility] Last Admin: 09/02/16 09:14 Dose: 40 mg Nystatin/Triamcinolone Acetonide (Mycolog Ii Cream -) 1 applic TP BID [facility] Last Admin: 09/02/16 09:19 Dose: 1 applic Senna (Senna -) 1 tab PO HS [facility] Last Admin: 09/01/16 22:28 Dose: Not Given Sodium Phosphate (Fleet Adult Rectal Enema -) 133 ml RC PRN PRN Zinc Sulfate (Orazinc -) 220 mg PO DAILY [facility] Last Admin: 09/02/16 09:15 Dose: 220 mg - Objective Vital Signs: Vital Signs Temperature 97.4 F L 09/02/16 06:00 Pulse Rate 58 L 09/02/16 06:00 Respiratory Rate 18 09/02/16 06:00 Blood Pressure 138/84 09/02/16 06:00 O2 Sat by Pulse Oximetry (%) 97 09/01/16 21:00 Cardiovascular: Yes: Regular Rate and Rhythm Respiratory: Yes: Regular, Diminished, On Nasal O2, Rhonchi Gastrointestinal: Yes: Normal Bowel Sounds, Soft Extremities: Yes: Other (contracted) Integumentary: Yes: Pressure Ulcer Wound/Incision: Yes: Other Neurological: Yes: Alert, Oriented Labs: CBC, BMP 09/01/16 05:35 09/01/16 05:35 INR, PTT INR 1.18 (0.82-1.09) H 08/31/16 16:15 Problem List - Problems (1) Acute respiratory failure with hypoxemia Assessment/Plan: NEBS ABX PULM ON CASE Code(s): J96.01 - ACUTE RESPIRATORY FAILURE WITH HYPOXIA (2) Breast CA Assessment/Plan: ONCOLOGY CONSULT CA27.29 Code(s): C50.919 - MALIGNANT NEOPLASM OF UNSP SITE OF UNSPECIFIED FEMALE BREAST (3) COPD (chronic obstructive pulmonary disease) Assessment/Plan: NEBS MONITOR SAT ON O2 IV STEROIDS Code(s): J44.9 - CHRONIC OBSTRUCTIVE PULMONARY DISEASE, UNSPECIFIED (4) Pneumonia Assessment/Plan: ABX FOLLOW CXR Code(s): J18.9 - PNEUMONIA, UNSPECIFIED ORGANISM Qualifiers: Pneumonia type: due to unspecified organism Lung location: unspecified part of lung (5) Wound infection Assessment/Plan: SURGICAL CONSULT ABX Code(s): T14.8 - OTHER INJURY OF UNSPECIFIED BODY REGION L08.9 - LOCAL INFECTION OF THE SKIN AND SUBCUTANEOUS TISSUE, UNSP (6) Spinal cord compression due to 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 (7) Thoracic spine fracture Assessment/Plan: NS CONSULT NOTED AND APPRECIATED ONCOLOGY Code(s): S22.009A - UNSP FRACTURE OF UNSP THORACIC VERTEBRA, INIT FOR CLOS FX (8) Thoracic spine tumor Assessment/Plan: ABOVE Code(s): D49.2 - NEOPLASM OF UNSP BEHAVIOR OF BONE, SOFT TISSUE, AND SKIN
--- NOTE | 2016-09-02 11:17 | PN ---
Progress Note (short form) - Note Progress Note: PULMONARY CHART REVIEWED PATIENT WAS TOLD OF SPINAL LESIONS IN PAST, NO ATTEMPT AT A DIAGNOSTIC PROCEDURE MADE DESTRUCTIVE LESION NOTED T3/4/5 H/O BREAST CA S/P MASTECTOMY VSS/AFEBRILE ANICTERIC DIMINISHED BREAST SOUNDS BASES S1S2 BS+ EARLY CONTRACTION B/L UNABLE TO MOVE FROM KNEES DOWN B/L TOES UP GOING B/L MEDS/LABS/IMAGING/NOTES REVIEWED IMP ACUTE HYPOXEMIC RESPIRATORY FAILURE RESOLVED COPD EXACERBATION PNEUMONIA DESTRUCTIVE T4/5/6 LESIONS NOTED/SPINAL CORD COMPRESSION ? METASTATIC BREAST CA PLAN NEURO-SURG EVAL/?BX/?RT ANTIBIOTICS PER ID INHALED BRONCHODILATORS O2 TO MAINTAIN O2 SAT 90% SHORT COURSE SOLUMEDROL Rosario ROJAS MD
[2016-09-02 12:00] LABS: C-REACTIVE PROTEIN 4.5 MG/DL (0.00-0.3)
--- NOTE | 2016-09-02 13:08 | PN ---
Progress Note, Physician History of Present Illness: Renal f/u No c/o N/V or diarrhea Serum Sodium and Potassium levels are wnl Results of the Ct SCan noted - Current Medication List Current Medications: Active Medications Acetaminophen (Tylenol -) 650 mg PO Q4H PRN PRN Reason: FEVER OR PAIN Albuterol Sulfate (Ventolin 0.083% Nebulizer Soln -) 1 amp NEB Q6H PRN PRN Reason: SHORT OF BREATH/WHEEZING Amino Acids (Prosource No Carb Liquid Pkt) 30 ml PO BID [facility] Last Admin: 09/02/16 09:15 Dose: 30 ml Ascorbic Acid (Vitamin C -) 500 mg PO DAILY [facility] Last Admin: 09/02/16 09:15 Dose: 500 mg Baclofen (Lioresal -) 10 mg PO DAILY [facility] Last Admin: 09/02/16 09:15 Dose: 10 mg Citalopram Hydrobromide (Celexa -) 20 mg PO DAILY [facility] Last Admin: 09/02/16 09:15 Dose: Not Given Diazepam (Valium -) 5 mg PO [facility] Last Admin: 09/01/16 22:00 Dose: Not Given Docusate Sodium (Colace -) 100 mg PO DAILY [facility] Last Admin: 09/02/16 09:15 Dose: 100 mg Enoxaparin Sodium (Lovenox -) 40 mg SQ DAILY [facility] Last Admin: 09/02/16 09:14 Dose: 40 mg Ceftriaxone Sodium (Rocephin 2gm Ivpb (Pre-Docked)) 100 mls @ 200 mls/hr IVPB DAILY [facility] Last Admin: 09/02/16 09:16 Dose: 200 mls/hr Metronidazole (Flagyl 500mg Premixed Ivpb -) 100 mls @ 100 mls/hr IVPB Q8H-IV [facility] Last Admin: 09/02/16 09:15 Dose: 100 mls/hr Methylprednisolone Sodium Succinate (Solu-Medrol -) 40 mg IVPB Q8H-IV [facility] Last Admin: 09/02/16 09:14 Dose: 40 mg Nystatin/Triamcinolone Acetonide (Mycolog Ii Cream -) 1 applic TP BID [facility] Last Admin: 09/02/16 09:19 Dose: 1 applic Senna (Senna -) 1 tab PO HS [facility] Last Admin: 09/01/16 22:28 Dose: Not Given Sodium Phosphate (Fleet Adult Rectal Enema -) 133 ml RC PRN PRN Zinc Sulfate (Orazinc -) 220 mg PO DAILY [facility] Last Admin: 09/02/16 09:15 Dose: 220 mg - Objective Vital Signs: Vital Signs Temperature 97.4 F L 09/02/16 06:00 Pulse Rate 58 L 09/02/16 06:00 Respiratory Rate 18 09/02/16 06:00 Blood Pressure 138/84 09/02/16 06:00 O2 Sat by Pulse Oximetry (%) 97 09/01/16 21:00 Constitutional: Yes: No Distress Cardiovascular: Yes: S1, S2 Respiratory: Yes: CTA Bilaterally, Poor Air Entry Gastrointestinal: Yes: Soft Edema: No Labs: CBC, BMP 09/01/16 05:35 09/01/16 05:35 INR, PTT INR 1.18 (0.82-1.09) H 08/31/16 16:15 Assessment/Plan Impression 1. S/P hyponatremia 2. COPD 3. H/O UTI 4. Possible PNA 5. Malnutrition 6. H/O Breast Ca with T3-T5 lesions - R/O Mets Plan - UA - Rpt labs in am - encourage PO intake - W/U for the thoracic lesions as recommended by Neurosurgery Dr Rowell
--- NOTE | 2016-09-02 13:25 | CONSULT ---
Consult - text type - Consultation Consultation Note: ONCOLOGY CONSULT NOTE ( covering for Dr. Allen/ ) - Primary Care Physician PCP: Rajesh Marrero - Admission Chief Complaint: metastatic spinal lesions History of Present Illness: This is a 66 year old female admitted for L.LL Pneumonia and on a CT scan was found to have metastatic lesions to the spine. The patient and the daughter were here during the consultation. She reports having a L. sided "toilet mastectomy" for breast cancer. She is being followed by at [facility] ([phone]) who is her primary oncologist. She is currently on monthly faslodex (which is a GnRH agonist) for breast cancer treatment. They say that in last december the paralysis started, till she was able to walk. She now has contractures in her leg. A biopsy of the spine lesion was offered but she declined. She also said ibrance "nearly had bad side effects ". The daughter says that these were discussed in the past but patient declined some of them. She was very tearful when I said that she will be unable to walk and realistically the chances are very slim. Overall I am unsure what workup has been done, what she has been told and what we need to do. It looks like some of these has been addressed in the past.We need to get notes from office on Sunday. I would also get a consultation from Radiation Oncology at the same time. 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 mastectomy - Advance Directives Advance Directives: Yes: Health Care Proxy - Smoking History Smoking history: Current every day smoker Have you smoked in the past 12 months: Yes Aproximately how many cigarettes per day: 4 - Alcohol/Substance Use Hx Alcohol Use: No Home Medications - Allergies Allergies/Adverse Reactions: Allergies Allergy/AdvReac Type Severity Reaction Status Date / Time epinephrine Allergy Verified 08/31/16 15:42 procaine Allergy Verified 08/31/16 15:42 sulfamethoxazole Allergy Verified 08/31/16 15:42 trimethoprim Allergy Verified 08/31/16 15:42 - Home Medications Home Medications: Ambulatory Orders Albuterol 0.083% Nebulizer Bella [Ventolin 0.083%] 1 neb NEB QID PRN 08/31/16 Amino Acids/Protein Hydrolys [Pro-Stat Liquid] 30 ml PO BID 08/31/16 Amox-Tr/K Cl [Augmentin - 875Mg Tablet] 1 tab PO BID 08/31/16 Ascorbic Acid [Vitamin C -] 500 mg PO DAILY 08/31/16 Azithromycin [Zithromax -] 1 tab PO DAILY 08/31/16 Baclofen 10 mg PO DAILY 08/31/16 Calcium Carbonate/Vitamin D3 [Eq Calcium 500 + Vit D 400 Tab] 1 each PO BID 04/18 Citalopram Hydrobromide [Celexa -] 20 mg PO DAILY 08/31/16 Diazepam [Valium] 5 mg PO HS 08/31/16 Docusate Sodium [Colace -] 100 mg PO DAILY 08/31/16 Enoxaparin [Lovenox -] 40 mg SQ DAILY 08/31/16 Guaifenesin [Robitussin -] 10 ml PO Q6H PRN 08/31/16 Loperamide HCl [Imodium A-D] 2 mg PO PRN 08/31/16 Magnesium Hydroxide [Milk of Magnesia] 400 mg PO PRN 08/31/16 Na Phos,M-B/Na Phos,Di-Ba [Fleet Enema] 133 ml RC PRN 08/31/16 Nystatin/Triamcinolone Top Cr [Mycolog II Cream -] 1 applic TP BID 08/31/16 Sennosides [Senna] 8.6 mg PO HS 08/31/16 Zinc Sulfate 220 mg PO DAILY 08/31/16 Review of Systems - Review of Systems Constitutional: reports: Lethargy, Loss of Appetite, Malaise, Weakness Eyes: reports: No Symptoms HENT: reports: No Symptoms Neck: reports: No Symptoms Cardiovascular: reports: No Symptoms Respiratory: reports: SOB, SOB on Exertion. New lesion in the L. chest wall Gastrointestinal: reports: No Symptoms Genitourinary: reports: No Symptoms Musculoskeletal: reports: Muscle Weakness Integumentary: reports: Wound Neurological: reports: Other Hematology/Lymphatic: reports: No Symptoms Psychiatric: reports: Anxiety, Paranoia Physical Examination Vital Signs: Vital Signs Period Temp Pulse Resp BP Sys/Pressley Pulse Ox Last 24 Hr 97.4 F-98.4 F 58-80 18-20 88-139/47-85 97-98 Findings/Remarks: in bed, Constitutional: Yes: Moderate Distress Eyes: Yes: WNL HENT: Yes: WNL Neck: Yes: WNL Cardiovascular: Yes: WNL Respiratory: Yes: Cough, On Nasal O2, Rhonchi, SOB, SOB on Exertion Gastrointestinal: Yes: WNL Renal/: Yes: WNL Musculoskeletal: Yes: Muscle Weakness Extremities: Yes: WNL, Other Edema: No Peripheral Pulses WNL: Yes Integumentary: Yes: Skin Tear Wound/Incision: Yes: Dressing Dry and Intact Neurological: Yes:contractures in both legs ...Motor Strength: LLE, RLE (HEEL ULCERS STAGE 1-2 WITH DRESSING) Psychiatric: Yes: Other Labs: CBC, BMP 09/01/16 05:35 09/01/16 05:35 Problem List - Problems (1) COPD exacerbation Assessment/Plan: ACUTE ON CHRONIC COPD Code(s): J44.1 - CHRONIC OBSTRUCTIVE PULMONARY DISEASE W (ACUTE) EXACERBATION (2) Hypoxia Code(s): R09.02 - HYPOXEMIA (3) Wound infection Code(s): T14.8 - OTHER INJURY OF UNSPECIFIED BODY REGION L08.9 - LOCAL INFECTION OF THE SKIN AND SUBCUTANEOUS TISSUE, UNSP (4) Pneumonia Code(s): J18.9 - PNEUMONIA, UNSPECIFIED ORGANISM Qualifiers: Pneumonia type: due to unspecified organism Lung location: unspecified part of lung Assessment/Plan 66 yr old with metastatic breast cancer. -see HPI for a detailed discussion -need tog et notes from office at [facility] and need to talk to him on sunday at [phone] -Rad Onc evalaution -? biopsy of the L. chest wall lesion - suspected breast cancer in which case we can defer a spinal biopsy
--- NOTE | 2016-09-02 15:10 | CONS ---
DATE OF CONSULTATION: 09/02/2016 CHIEF COMPLAINT: Abnormal chest CT findings. 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 The patient stated that it had been worse in the last couple of days with associated cough. She denies fevers or chills. She stated that she has been paralyzed in her lower extremity since last December. 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 She has lost her bowel and bladder control for several months at least. She has been immobile and at bedrest. She still smokes 1-1/2 cigarettes 3 times a day by report. PAST MEDICAL HISTORY: Significant for squamous cell carcinoma of the breast, COPD, chronic smoker, pressure sores, left atrial septal defect. She also has undergone some debridement of her wound for her pressure sores. MEDICATIONS: Includes Solu-Medrol, Tylenol, Rocephin, Flagyl, Lovenox, Celexa, Mycolog, Valium, Ventolin inhaler, Colace, Senna, Fleet enema, zinc sulfate, vitamin C. ALLERGIES: EPINEPHRINE, PROCAINE, SULFAMETHOXAZOLE, AND TRIMETHOPRIM. SOCIAL HISTORY: She still smokes. She does not drink alcohol. She is a resident of the nursing facility. She is not working. She is disabled. REVIEW OF SYSTEMS: Otherwise negative for other major cardiovascular, pulmonary , gastrointestinal, genitourinary, endocrinologic, neurologic, or psychological problems except for the above. PHYSICAL EXAMINATION: Vital Signs: Temperature 97.4, blood pressure 178/84, pulse rate 58. HEENT: Normocephalic, atraumatic, anicteric. Neck: Supple. Coronary: Demonstrates regular rhythm. Lungs: Diminished breath sounds at the bases. Chest Wall: She has a left chest scar from her left mastectomy. Abdomen: Benign with positive bowel sounds. Extremities: Shows contractures to bilateral lower extremities with heel and ankle pads on. Neurologic: She is awake, alert, and oriented x3. Cranial nerve examination intact 2-12. She is a poor historian, however. Motor examination shows 5/5 strength in upper extremities and 0/5 strength in the lower extremities with increased tone in the lower extremity consistent with spasticity. Sensory examination shows a fairly dense sensory level below about T4-T5. Remaining crude sensation to pinprick. Deep tendon reflexes are difficult to assess because of her contracture. Upper extremity reflexes are physiological. LABORATORY EXAMINATION: Shows white blood cell count 9.9, hemoglobin 11.9, platelet count 328,000, INR 1.18. Serum sodium 89, potassium 4.4, BUN 11, creatinine 0.3 , glucose 130. Troponin less than 0.02. Albumin 2. CT scan of the chest demonstrated some basilar atelectasis. There are emphysematous changes. There is a small right basilar infiltrate posteriorly on the right. There is also a basilar and superior segment left lower lobe infiltrate as well. Pathological fracture of T3, T4, and T5 vertebral bodies noted involving collapse of vertebral body as well as involving the pedicle and posterior elements. There is associated kyphosis. There is marked compromise of the spinal canal with spinal cord compression. There is T12 hyperdensity consistent with metastasis as well. Proximal left T12 rib is also involved. IMPRESSION: 1. Probable and extensive metastatic disease involving the thoracic spinal cord compression and chronic T4 paraplegia. 2. History of left breast cancer status post mastectomy. 3. Chronic obstructive pulmonary disease. 4. History of atrial septal defect repair. 5. Multiple pressure sores, existing. RECOMMENDATIONS: The patient presents with paralysis since at least last December. She has developed multiple skin sores likely as the result. She is being cared for by the wound care clinic. She is not a detailed historian; however, she likely has had metastatic disease to her spine for a long period of time, which resulted in her complete paraplegia. Her prior evaluation result is not available to me at this time, and if such record is available from the primary care physician it might be helpful, which includes her prior evaluation and workup. She does have a history of breast cancer, and this could be metastatic disease to T3, T4, T5 with resultant spinal cord compression and complete paraplegia. This could also be from her lungs as she is a chronic heavy smoker in the past. She remains a smoker even as of today. Medical Oncology and Radiation Oncology input is recommended. If a tissue confirmation is desired, a CT-guided biopsy could be considered by Interventional Radiology. Frankly, palliative radiation should be considered at this time since the goal of the treatment is for some local pain control as well as possible local tumor control. There is no neurosurgical intervention which could help her recover neurologically as the patient is completely paraplegic for at least 7 months reportedly from a motor standpoint and minimal residual sensory function. Neurological function recovery is improbable and close to impossible. Furthermore, she has significant skin breakdown from her malnutrition and chronic mobility making any surgical intervention for her spine essentially contraindicated. Chemotherapy could be considered for metastatic disease, but the patient adamantly does not want to go underwent any chemotherapy. The pros and cons of treatment approach as discussed with the patient at bedside. All questions were answered. ANGELICA MCCOY M.D. HECTOR/[id number] MTDD
--- NOTE | 2016-09-02 16:54 | CON.CARD ---
Consult Consult Specialty:: Cardiology Reason for Consultation:: Fluid overloaded - History of Present Illness History of Present Illness: This is a 66 year old female with a PMH of COPD, smoking, and pressure ulcers secondary to immobility. She was sent from her facility to the ED and was noted to be hypoxic and noted to have a UTI. She reported a nonproductive cough and worsening SOB for about 3 days prior to admission. EKG showed sinus bradycardia with marked sinus arrhythmia and NSSTTW changes. CXR showed possible left basilar consolidation and chest CT confirmed basilar infiltrates. 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: Peripheral Neuropathy Pulmonary: Yes: COPD ...: No - Past Surgical History Past Surgical History: Yes: Cholecystectomy, Tonsillectomy - Alcohol/Substance Use Hx Alcohol Use: No - Smoking History Smoking history: Current every day smoker Have you smoked in the past 12 months: Yes Aproximately how many cigarettes per day: 4 Home Medications - Allergies Allergies/Adverse Reactions: Allergies Allergy/AdvReac Type Severity Reaction Status Date / Time epinephrine Allergy Verified 08/31/16 15:42 procaine Allergy Verified 08/31/16 15:42 sulfamethoxazole Allergy Verified 08/31/16 15:42 trimethoprim Allergy Verified 08/31/16 15:42 - Home Medications Home Medications: Ambulatory Orders Albuterol 0.083% Nebulizer Bella [Ventolin 0.083%] 1 neb NEB QID PRN 08/31/16 Amino Acids/Protein Hydrolys [Pro-Stat Liquid] 30 ml PO BID 08/31/16 Amox-Tr/K Cl [Augmentin - 875Mg Tablet] 1 tab PO BID 08/31/16 Ascorbic Acid [Vitamin C -] 500 mg PO DAILY 08/31/16 Azithromycin [Zithromax -] 1 tab PO DAILY 08/31/16 Baclofen 10 mg PO DAILY 08/31/16 Calcium Carbonate/Vitamin D3 [Eq Calcium 500 + Vit D 400 Tab] 1 each PO BID 04/18 Citalopram Hydrobromide [Celexa -] 20 mg PO DAILY 08/31/16 Diazepam [Valium] 5 mg PO HS 08/31/16 Docusate Sodium [Colace -] 100 mg PO DAILY 08/31/16 Enoxaparin [Lovenox -] 40 mg SQ DAILY 08/31/16 Guaifenesin [Robitussin -] 10 ml PO Q6H PRN 08/31/16 Loperamide HCl [Imodium A-D] 2 mg PO PRN 08/31/16 Magnesium Hydroxide [Milk of Magnesia] 400 mg PO PRN 08/31/16 Na Phos,M-B/Na Phos,Di-Ba [Fleet Enema] 133 ml RC PRN 08/31/16 Nystatin/Triamcinolone Top Cr [Mycolog II Cream -] 1 applic TP BID 08/31/16 Sennosides [Senna] 8.6 mg PO HS 08/31/16 Zinc Sulfate 220 mg PO DAILY 08/31/16 Review of Systems Findings/Remarks: As per HPI Vital Signs: Vital Signs Temperature 98.1 F 09/02/16 10:00 Pulse Rate 60 09/02/16 10:00 Respiratory Rate 18 09/02/16 10:00 Blood Pressure 139/85 09/02/16 10:00 O2 Sat by Pulse Oximetry (%) 98 09/02/16 10:00 Constitutional: Yes: No Distress Respiratory: Yes: Other (Bibasilar dullness) Cardiovascular: Yes: Regular Rate and Rhythm Heart Sounds: Yes: S1, S2 (No MRHG) Edema: No Neurological: Yes: Alert, Oriented - Other Data Labs, Other Data: CBC, BMP 09/01/16 05:35 09/01/16 05:35 INR, PTT INR 1.18 (0.82-1.09) H 08/31/16 16:15 Assessment/Plan [facility] *LIVE* COPD exacerbation CHF may be a contributing factor BNP 236 Would obtain an echocardiogram May benefit from gentle duiresis Would consider adding Lasix 20 mg po daily Continue DVT propholaxis
--- NOTE | 2016-09-02 16:55 | PN ---
Progress Note, Physician History of Present Illness: CT shows bibasilar infiltrates Occasional cough- yellow sputum Mildly dyspneic at rest no c/o fever/ chills - Current Medication List Current Medications: Active Medications Acetaminophen (Tylenol -) 650 mg PO Q4H PRN PRN Reason: FEVER OR PAIN Albuterol Sulfate (Ventolin 0.083% Nebulizer Soln -) 1 amp NEB Q6H PRN PRN Reason: SHORT OF BREATH/WHEEZING Amino Acids (Prosource No Carb Liquid Pkt) 30 ml PO BID [facility] Last Admin: 09/02/16 09:15 Dose: 30 ml Ascorbic Acid (Vitamin C -) 500 mg PO DAILY [facility] Last Admin: 09/02/16 09:15 Dose: 500 mg Baclofen (Lioresal -) 10 mg PO DAILY [facility] Last Admin: 09/02/16 09:15 Dose: 10 mg Citalopram Hydrobromide (Celexa -) 20 mg PO DAILY [facility] Last Admin: 09/02/16 09:15 Dose: Not Given Diazepam (Valium -) 5 mg PO [facility] Last Admin: 09/01/16 22:00 Dose: Not Given Docusate Sodium (Colace -) 100 mg PO DAILY [facility] Last Admin: 09/02/16 09:15 Dose: 100 mg Enoxaparin Sodium (Lovenox -) 40 mg SQ DAILY [facility] Last Admin: 09/02/16 09:14 Dose: 40 mg Ceftriaxone Sodium (Rocephin 2gm Ivpb (Pre-Docked)) 100 mls @ 200 mls/hr IVPB DAILY [facility] Last Admin: 09/02/16 09:16 Dose: 200 mls/hr Metronidazole (Flagyl 500mg Premixed Ivpb -) 100 mls @ 100 mls/hr IVPB Q8H-IV [facility] Last Admin: 09/02/16 09:15 Dose: 100 mls/hr Methylprednisolone Sodium Succinate (Solu-Medrol -) 40 mg IVPB Q8H-IV [facility] Last Admin: 09/02/16 09:14 Dose: 40 mg Nystatin/Triamcinolone Acetonide (Mycolog Ii Cream -) 1 applic TP BID [facility] Last Admin: 09/02/16 09:19 Dose: 1 applic Senna (Senna -) 1 tab PO HS [facility] Last Admin: 09/01/16 22:28 Dose: Not Given Sodium Phosphate (Fleet Adult Rectal Enema -) 133 ml RC PRN PRN Zinc Sulfate (Orazinc -) 220 mg PO DAILY [facility] Last Admin: 09/02/16 09:15 Dose: 220 mg - Objective Vital Signs: Vital Signs Temperature 98.1 F 09/02/16 10:00 Pulse Rate 60 09/02/16 10:00 Respiratory Rate 18 09/02/16 10:00 Blood Pressure 139/85 09/02/16 10:00 O2 Sat by Pulse Oximetry (%) 98 09/02/16 10:00 Constitutional: Yes: No Distress, Thin Eyes: Yes: Conjunctiva Clear Cardiovascular: Yes: Regular Rate and Rhythm, S1, S2 Respiratory: Yes: Rhonchi Gastrointestinal: Yes: Normal Bowel Sounds, Soft. No: Tenderness Edema: No Labs: CBC, BMP 09/01/16 05:35 09/01/16 05:35 INR, PTT INR 1.18 (0.82-1.09) H 08/31/16 16:15 Assessment/Plan Bibasilar infiltrates Exacerbation COPD UTI Decubitus ulcers Await c/s Continue empiric ceftriaxone/ flagyl
[2016-09-02] MEDS: ACETAMINOPHEN 325 MG TABLET (FP) PO PRN (17:42)
--- NOTE | 2016-09-02 19:14 | EKG ---
Test Reason : Blood Pressure : / mmHG Vent. Rate : 057 BPM Atrial Rate : 057 BPM P-R Int : 128 ms QRS Dur : 082 ms QT Int : 506 ms P-R-T Axes : 101 014 086 degrees QTc Int : 492 ms SINUS BRADYCARDIA WITH PREMATURE ATRIAL COMPLEXES NONSPECIFIC T WAVE ABNORMALITY ABNORMAL ECG WHEN COMPARED WITH ECG OF 01-SEP-2016 09:10, PREMATURE ATRIAL COMPLEXES ARE NOW PRESENT QT HAS LENGTHENED Confirmed by NATE CAMERON, DEAN ([id number]) on 09/02/2016 7:14:26 PM Referred By: José Manuel CHOUDHARY Confirmed By:DEAN SULLIVAN MD
[2016-09-02] MEDS: SENNOSIDES 8.6MG TABLET (FP) PO SCH (22:19)
[2016-09-02] MEDS: diazePAM 5 MG TABLET PO SCH (22:19)
[2016-09-03] MEDS: methylPREDNISolone NA SUCC 40 MG/1 ML VIAL IVPB SCH ×3 (02:19→17:34)
[2016-09-03] MEDS: METRONIDAZOLE 500 MG PREMIXED 100 ML IVPB SCH ×3 (02:19→17:34)
[2016-09-03 07:16] LABS: ALBUMIN 2.2 g/dl (3.4-5.0); ANION GAP 5 (8-16); CALCIUM 8.8 mg/dL (8.5-10.1); CO2 30 mmol/L (21-32); CREATININE 0.4 mg/dL (0.55-1.02); GLUCOSE,RANDOM 103 mg/dL (74-106); SGPT/ALT 24 U/L (12-78)
[2016-09-03 07:20] LABS: ALK PHOS 116 U/L (45-117); BILIRUBIN,TOTAL 0.1 mg/dL (0.2-1.0); SGOT/AST 17 U/L (15-37)
[2016-09-03 08:51] LABS: BASOPHIL 0.1 % (0-2.0); MCH 30.8 pg (25.7-33.7); MCHC 33.9 g/dl (32.0-36.0); MEAN CELL VOLUME 91.1 fl (80-96); MEAN PLT VOLUME 6.9 fl (7.5-11.1); NEUTROPHILS 88.6 % (42.8-82.8); PLATELET COUNT 386 K/MM3 (134-434); RDW 13.5 % (11.6-15.6); WHITE BLOOD COUNT 10.1 K/mm3 (4.0-10.0)
[2016-09-03] MEDS: ZINC SULFATE 220 MG CAPSULE (FP) PO SCH (09:42)
[2016-09-03] MEDS: ASCORBIC ACID 500 MG TABLET (FP) PO SCH (09:42)
[2016-09-03] MEDS: CITALOPRAM HYDROBROMIDE 20 MG TABLET (FP) PO SCH ×2 (09:42→11:24)
[2016-09-03] MEDS: BACLOFEN 10 MG TABLET (FP) PO SCH (09:42)
[2016-09-03] MEDS: DOCUSATE SODIUM 100 MG CAPSULE (FP) PO SCH (09:42)
[2016-09-03] MEDS: AMINO ACIDS/PROTEIN HYDROLYS 30 ML LIQUID.PKT PO SCH ×2 (09:43→21:29)
[2016-09-03] MEDS: NYSTATIN/TRIAMCINOLONE TOPICAL CREAM 15 GM TUBE TP SCH ×2 (09:43→21:29)
[2016-09-03] MEDS: CEFTRIAXONE 2G/100 ML IVPB SCH (09:43)
[2016-09-03] MEDS: ENOXAPARIN NA (PORCINE) 40 MG/0.4 ML DISP.SYRIN SQ SCH (09:43)
--- NOTE | 2016-09-03 09:43 | PN ---
Progress Note (short form) - Note Progress Note: NEUROSURGERY Some upper back pain. PE: AF, VSS General- multiple skin sores or LE and back/hip; L breast scar; decreased BS at bases B CN- intact; Motor- 0/5 B LE with contracture; Sensation- significantly diminished below T4 B; DTR- spasticity LE WBC 10.1, Crp 4.5, esr 92 CT Chest- extensive lytic lesions T 3-4-5 with vertebral body collapse and posterior element involvement kyphosis and canal compromise/cord compression; T12 mets; patchy small infiltrates B Metastatic T spine dz with motor complete paraplegia, breast > lung? Med and rad onc input CT guided bx if needed per oncology No chance of LE recovery given time onset and severity of LE motor paralysis >7 months ago Pros and cons of tx approaches discussed Neurosurgical intervention will not restore neurological function and is therefore not recommended in this lady with already significant wasting and skin breaches Pt does not want to consider chemo Consider palliative XRT
--- NOTE | 2016-09-03 11:33 | PN ---
Progress Note, Physician History of Present Illness: Renal f/u Pt has a poor appetite but no c/o N/V or diarrhea Serum Sodium and Potassium levels remain wnl - Current Medication List Current Medications: Active Medications Acetaminophen (Tylenol -) 650 mg PO Q4H PRN PRN Reason: FEVER OR PAIN Albuterol Sulfate (Ventolin 0.083% Nebulizer Soln -) 1 amp NEB Q6H PRN PRN Reason: SHORT OF BREATH/WHEEZING Amino Acids (Prosource No Carb Liquid Pkt) 30 ml PO BID [facility] Last Admin: 09/03/16 09:43 Dose: 30 ml Ascorbic Acid (Vitamin C -) 500 mg PO DAILY [facility] Last Admin: 09/03/16 09:42 Dose: 500 mg Baclofen (Lioresal -) 10 mg PO DAILY [facility] Last Admin: 09/03/16 09:42 Dose: 10 mg Citalopram Hydrobromide (Celexa -) 20 mg PO DAILY [facility] Last Admin: 09/03/16 11:24 Dose: Not Given Diazepam (Valium -) 5 mg PO [facility] Last Admin: 09/02/16 22:19 Dose: Not Given Docusate Sodium (Colace -) 100 mg PO DAILY [facility] Last Admin: 09/03/16 09:42 Dose: 100 mg Enoxaparin Sodium (Lovenox -) 40 mg SQ DAILY [facility] Last Admin: 09/03/16 09:43 Dose: 40 mg Ceftriaxone Sodium (Rocephin 2gm Ivpb (Pre-Docked)) 100 mls @ 200 mls/hr IVPB DAILY [facility] Last Admin: 09/03/16 09:43 Dose: 200 mls/hr Metronidazole (Flagyl 500mg Premixed Ivpb -) 100 mls @ 100 mls/hr IVPB Q8H-IV [facility] Last Admin: 09/03/16 09:43 Dose: 100 mls/hr Methylprednisolone Sodium Succinate (Solu-Medrol -) 40 mg IVPB Q8H-IV [facility] Last Admin: 09/03/16 09:43 Dose: 40 mg Nystatin/Triamcinolone Acetonide (Mycolog Ii Cream -) 1 applic TP BID [facility] Last Admin: 09/03/16 09:43 Dose: 1 applic Senna (Senna -) 1 tab PO HS [facility] Last Admin: 09/02/16 22:19 Dose: Not Given Sodium Phosphate (Fleet Adult Rectal Enema -) 133 ml RC PRN PRN Zinc Sulfate (Orazinc -) 220 mg PO DAILY [facility] Last Admin: 09/03/16 09:42 Dose: 220 mg - Objective Vital Signs: Vital Signs Temperature 98 F 09/03/16 06:15 Pulse Rate 55 L 09/03/16 06:15 Respiratory Rate 16 09/03/16 06:15 Blood Pressure 121/85 09/03/16 06:15 O2 Sat by Pulse Oximetry (%) 98 09/02/16 20:41 Constitutional: Yes: No Distress, Calm Cardiovascular: Yes: S1, S2 Respiratory: Yes: CTA Bilaterally Gastrointestinal: Yes: Soft. No: Tenderness, Rebound Edema: No Labs: CBC, BMP 09/03/16 05:35 09/03/16 05:35 INR, PTT INR 1.18 (0.82-1.09) H 08/31/16 16:15 Assessment/Plan Impression 1. S/P hyponatremia 2. COPD 3. H/O UTI 4. Possible PNA 5. Malnutrition 6. H/O Breast Ca with T3-T5 lesions - R/O Mets Plan - UA N/A - encourage PO intake - W/U for the thoracic lesions as recommended by Neurosurgery - Will only follow prn- Please call if f/u necessary Thank You Dr Rowell
--- NOTE | 2016-09-03 12:07 | PN ---
Progress Note (short form) - Note Progress Note: ONCOLOGY NOTE ( covering for Dr. Allen/ ) This is a 66 year old female admitted for L.LL Pneumonia and on a CT scan was found to have metastatic lesions to the spine. The patient and the daughter were here during the consultation. She reports having a L. sided "toilet mastectomy" for breast cancer. She is being followed by at [facility] ([phone]) who is her primary oncologist. She is currently on monthly faslodex (which is a GnRH agonist) for breast cancer treatment. They say that in last december the paralysis started, till she was able to walk. She now has contractures in her leg. A biopsy of the spine lesion was offered but she declined. She also said ibrance "nearly had bad side effects ". The daughter says that these were discussed in the past but patient declined some of them. She was very tearful when I said that she will be unable to walk and realistically the chances are very slim. Overall I am unsure what workup has been done, what she has been told and what we need to do. It looks like some of these has been addressed in the past.We need to get notes from office on Sunday. I would also get a consultation from Radiation Oncology at the same time. Vital Signs Period Temp Pulse Resp BP Sys/Pressley Pulse Ox Last 24 Hr 97.5 F-98.0 F 47-87 16-20 93-121/51-85 98 Current Medications Generic Name Dose Route Start Last Admin Trade Name Freq PRN Reason Stop Dose Admin Acetaminophen 650 mg 08/31/16 20:27 Tylenol - PO Q4H PRN FEVER OR PAIN Albuterol Sulfate 1 amp 08/31/16 20:24 Ventolin 0.083% Nebulizer Soln - NEB Q6H PRN SHORT OF BREATH/WHEEZING Amino Acids 30 ml 08/31/16 22:00 09/03/16 09:43 Prosource No Carb Liquid Pkt PO 30 ml BID SONI Administration Ascorbic Acid 500 mg 09/01/16 10:00 09/03/16 09:42 Vitamin C - PO 500 mg DAILY SONI Administration Baclofen 10 mg 09/01/16 10:00 09/03/16 09:42 Lioresal - PO 10 mg DAILY SONI Administration Citalopram Hydrobromide 20 mg 09/01/16 10:00 09/03/16 11:24 Celexa - PO Not Given DAILY SONI Diazepam 5 mg 08/31/16 22:00 09/02/16 22:19 Valium - PO Not Given HS SONI Docusate Sodium 100 mg 09/01/16 10:00 09/03/16 09:42 Colace - PO 100 mg DAILY SONI Administration Enoxaparin Sodium 40 mg 09/01/16 10:00 09/03/16 09:43 Lovenox - SQ 40 mg DAILY SONI Administration Ceftriaxone Sodium 100 mls @ 200 mls/hr 09/01/16 10:45 09/03/16 09:43 Rocephin 2gm Ivpb (Pre-Docked) IVPB 200 mls/hr DAILY SONI Administration Metronidazole 100 mls @ 100 mls/hr 09/01/16 10:45 09/03/16 09:43 Flagyl 500mg Premixed Ivpb - IVPB 100 mls/hr Q8H-IV SONI Administration Methylprednisolone Sodium Succinate 40 mg 09/01/16 12:30 09/03/16 09:43 Solu-Medrol - IVPB 40 mg Q8H-IV SONI Administration Nystatin/Triamcinolone Acetonide 1 applic 08/31/16 22:00 09/03/16 09:43 Mycolog Ii Cream - TP 1 applic BID SONI Administration Senna 1 tab 08/31/16 22:00 09/02/16 22:19 Senna - PO Not Given HS SONI Sodium Phosphate 133 ml 08/31/16 20:30 Fleet Adult Rectal Enema - RC PRN PRN Zinc Sulfate 220 mg 09/01/16 10:00 09/03/16 09:42 Orazinc - PO 220 mg DAILY SONI Administration CBC, BMP 09/03/16 05:35 09/03/16 05:35 Problem List - Problems (1) COPD exacerbation Assessment/Plan: ACUTE ON CHRONIC COPD Code(s): J44.1 - CHRONIC OBSTRUCTIVE PULMONARY DISEASE W (ACUTE) EXACERBATION (2) Hypoxia Code(s): R09.02 - HYPOXEMIA (3) Wound infection Code(s): T14.8 - OTHER INJURY OF UNSPECIFIED BODY REGION L08.9 - LOCAL INFECTION OF THE SKIN AND SUBCUTANEOUS TISSUE, UNSP (4) Pneumonia Code(s): J18.9 - PNEUMONIA, UNSPECIFIED ORGANISM Qualifiers: Pneumonia type: due to unspecified organism Lung location: unspecified part of lung Assessment/Plan 66 yr old with metastatic breast cancer. -see HPI for a detailed discussion -need to get notes from office at [facility] and need to talk to him on sunday at [phone] -Rad Onc evalaution -? biopsy of the L. chest wall lesion - suspected breast cancer in which case we can defer a spinal biopsy -can stop high dose methyl prednisone -Neurosurgery notes appreciated
--- NOTE | 2016-09-03 12:43 | PN ---
Progress Note, Physician History of Present Illness: 66 year old female with a significant past medical history of Breast Ca-s/p mastectomy, COPD, cigarette smoking, pressure ulcers secondary to immobility, sent from [facility] by ambulance to the Emergency Department with shortness of breath, low O2 sat (88), and UTI. The patient reports that she has had shortness of breath, and a cough for weeks that has become worse over the past 2 to 3 days. - Current Medication List Current Medications: Active Medications Acetaminophen (Tylenol -) 650 mg PO Q4H PRN PRN Reason: FEVER OR PAIN Albuterol Sulfate (Ventolin 0.083% Nebulizer Soln -) 1 amp NEB Q6H PRN PRN Reason: SHORT OF BREATH/WHEEZING Amino Acids (Prosource No Carb Liquid Pkt) 30 ml PO BID [facility] Last Admin: 09/03/16 09:43 Dose: 30 ml Ascorbic Acid (Vitamin C -) 500 mg PO DAILY [facility] Last Admin: 09/03/16 09:42 Dose: 500 mg Baclofen (Lioresal -) 10 mg PO DAILY [facility] Last Admin: 09/03/16 09:42 Dose: 10 mg Citalopram Hydrobromide (Celexa -) 20 mg PO DAILY [facility] Last Admin: 09/03/16 11:24 Dose: Not Given Diazepam (Valium -) 5 mg PO HS [facility] Last Admin: 09/02/16 22:19 Dose: Not Given Docusate Sodium (Colace -) 100 mg PO DAILY [facility] Last Admin: 09/03/16 09:42 Dose: 100 mg Enoxaparin Sodium (Lovenox -) 40 mg SQ DAILY [facility] Last Admin: 09/03/16 09:43 Dose: 40 mg Ceftriaxone Sodium (Rocephin 2gm Ivpb (Pre-Docked)) 100 mls @ 200 mls/hr IVPB DAILY [facility] Last Admin: 09/03/16 09:43 Dose: 200 mls/hr Metronidazole (Flagyl 500mg Premixed Ivpb -) 100 mls @ 100 mls/hr IVPB Q8H-IV [facility] Last Admin: 09/03/16 09:43 Dose: 100 mls/hr Methylprednisolone Sodium Succinate (Solu-Medrol -) 40 mg IVPB Q8H-IV [facility] Last Admin: 09/03/16 09:43 Dose: 40 mg Nystatin/Triamcinolone Acetonide (Mycolog Ii Cream -) 1 applic TP BID [facility] Last Admin: 09/03/16 09:43 Dose: 1 applic Senna (Senna -) 1 tab PO HS [facility] Last Admin: 09/02/16 22:19 Dose: Not Given Sodium Phosphate (Fleet Adult Rectal Enema -) 133 ml RC PRN PRN Zinc Sulfate (Orazinc -) 220 mg PO DAILY [facility] Last Admin: 09/03/16 09:42 Dose: 220 mg - Objective Vital Signs: Vital Signs Temperature 98 F 09/03/16 06:15 Pulse Rate 55 L 09/03/16 06:15 Respiratory Rate 16 09/03/16 06:15 Blood Pressure 121/85 09/03/16 06:15 O2 Sat by Pulse Oximetry (%) 98 09/02/16 20:41 Cardiovascular: Yes: Regular Rate and Rhythm Respiratory: Yes: Diminished, Rhonchi Gastrointestinal: Yes: Normal Bowel Sounds, Soft Labs: CBC, BMP 09/03/16 05:35 09/03/16 05:35 INR, PTT INR 1.18 (0.82-1.09) H 08/31/16 16:15 Problem List - Problems (1) Acute respiratory failure with hypoxemia Assessment/Plan: NEBS ABX PULM ON CASE Code(s): J96.01 - ACUTE RESPIRATORY FAILURE WITH HYPOXIA (2) Breast CA Assessment/Plan: R/O RECURRENT CANCER ONCOLOGY CONSULT CA27.29 Code(s): C50.919 - MALIGNANT NEOPLASM OF UNSP SITE OF UNSPECIFIED FEMALE BREAST (3) COPD (chronic obstructive pulmonary disease) Assessment/Plan: NEBS MONITOR SAT ON O2 IV STEROIDS Code(s): J44.9 - CHRONIC OBSTRUCTIVE PULMONARY DISEASE, UNSPECIFIED (4) Pneumonia Assessment/Plan: ABX FOLLOW CXR Code(s): J18.9 - PNEUMONIA, UNSPECIFIED ORGANISM Qualifiers: Pneumonia type: due to unspecified organism Lung location: unspecified part of lung (5) Wound infection Assessment/Plan: SURGICAL CONSULT ABX SURGICAL CONSULT Code(s): T14.8 - OTHER INJURY OF UNSPECIFIED BODY REGION L08.9 - LOCAL INFECTION OF THE SKIN AND SUBCUTANEOUS TISSUE, UNSP (6) Spinal cord compression due to 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 (7) Thoracic spine fracture Assessment/Plan: NS CONSULT NOTED AND APPRECIATED ONCOLOGY Code(s): S22.009A - UNSP FRACTURE OF UNSP THORACIC VERTEBRA, INIT FOR CLOS FX (8) Thoracic spine tumor Assessment/Plan: ABOVE Code(s): D49.2 - NEOPLASM OF UNSP BEHAVIOR OF BONE, SOFT TISSUE, AND SKIN
--- NOTE | 2016-09-03 12:50 | PN ---
Progress Note (short form) - Note Progress Note: PULMONARY CHART REVIEWED DESTRUCTIVE LESION NOTED T3/4/5 H/O BREAST CA S/P MASTECTOMY VSS/AFEBRILE ANICTERIC DIMINISHED BREAST SOUNDS BASES S1S2 BS+ EARLY CONTRACTION B/L UNABLE TO MOVE FROM KNEES DOWN B/L TOES UP GOING B/L MEDS/LABS/IMAGING/NOTES REVIEWED IMP ACUTE HYPOXEMIC RESPIRATORY FAILURE RESOLVED COPD EXACERBATION PNEUMONIA DESTRUCTIVE T4/5/6 LESIONS NOTED/SPINAL CORD COMPRESSION LIKELY METASTATIC BREAST CA PLAN NEURO-SURG EVAL REVIEWED ANTIBIOTICS PER ID INHALED BRONCHODILATORS O2 TO MAINTAIN O2 SAT 90% SHORT COURSE SOLUMEDROL ONCOLOGY INPUT APPRECIATED Rosario ROJAS MD
[2016-09-03] MEDS: SENNOSIDES 8.6MG TABLET (FP) PO SCH (21:29)
[2016-09-04] MEDS: diazePAM 5 MG TABLET PO SCH ×2 (00:16→23:55)
[2016-09-04] MEDS: METRONIDAZOLE 500 MG PREMIXED 100 ML IVPB SCH ×3 (02:47→18:14)
[2016-09-04] MEDS: methylPREDNISolone NA SUCC 40 MG/1 ML VIAL IVPB SCH ×3 (02:47→18:14)
[2016-09-04] MEDS: PIPERACILLIN/TAZOB 3.375 GM/50 ML PRE-DOCKED IVPB SCH (03:03)
[2016-09-04] MEDS: ACETAMINOPHEN 325 MG TABLET (FP) PO PRN (03:16)
--- NOTE | 2016-09-04 07:55 | PN ---
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 Med onc input noted CT guided bx if needed per oncology No chance of LE recovery given time onset and severity of LE motor paralysis >7 months ago Pros and cons of tx approaches discussed previously x2 Pt reportedly offered bx by treating oncologist previously but did not want to proceed at that time (late 2015) Functional recovery rate for LE motor function little to none Neurosurgical intervention not recommended in this lady per rationale outlined earlier Consider palliative XRT
[2016-09-04] MEDS: AMINO ACIDS/PROTEIN HYDROLYS 30 ML LIQUID.PKT PO SCH ×2 (09:40→21:29)
[2016-09-04] MEDS: ASCORBIC ACID 500 MG TABLET (FP) PO SCH (09:40)
[2016-09-04] MEDS: ENOXAPARIN NA (PORCINE) 40 MG/0.4 ML DISP.SYRIN SQ SCH (09:40)
[2016-09-04] MEDS: BACLOFEN 10 MG TABLET (FP) PO SCH (09:41)
[2016-09-04] MEDS: DOCUSATE SODIUM 100 MG CAPSULE (FP) PO SCH (09:41)
[2016-09-04] MEDS: CEFTRIAXONE 2G/100 ML IVPB SCH (09:41)
[2016-09-04] MEDS: ZINC SULFATE 220 MG CAPSULE (FP) PO SCH (09:41)
[2016-09-04] MEDS: CITALOPRAM HYDROBROMIDE 20 MG TABLET (FP) PO SCH (09:43)
[2016-09-04] MEDS: NYSTATIN/TRIAMCINOLONE TOPICAL CREAM 15 GM TUBE TP SCH ×2 (09:44→21:29)
--- NOTE | 2016-09-04 10:48 | PN ---
Progress Note (short form) - Note Progress Note: NAD breathing improved has not walked in months multiple decubiti- not willing to let me look Vital Signs Period Temp Pulse Resp BP Sys/Pressley Pulse Ox Last 24 Hr 97.5 F-98.5 F 46-71 16-20 96-119/50-74 98 cor-rrr lungs decreased bs at bases abd- soft,nt ext trace pedal edema bilateral CBC, BMP 09/03/16 05:35 09/03/16 05:35 Microbiology 08/31/16 16:24 Blood - Peripheral Venous Blood Culture - Preliminary NO GROWTH OBTAINED AFTER 72 HOURS, INCUBATION TO CONTINUE FOR 2 DAYS. 08/31/16 16:24 Blood - Peripheral Venous Blood Culture - Preliminary NO GROWTH OBTAINED AFTER 72 HOURS, INCUBATION TO CONTINUE FOR 2 DAYS. a/p pneumonia multiple decubiti bilateral lower extremity paresis breast cancer continue ceftriaxone/flagyl- day #4 wound care consult for decubiti
--- NOTE | 2016-09-04 11:04 | PN ---
Progress Note, Physician History of Present Illness: pulmonary alert,feeling better,less dyspneic,+dry cough - Current Medication List Current Medications: Active Medications Acetaminophen (Tylenol -) 650 mg PO Q4H PRN PRN Reason: FEVER OR PAIN Last Admin: 09/04/16 03:16 Dose: 650 mg Albuterol Sulfate (Ventolin 0.083% Nebulizer Soln -) 1 amp NEB Q6H PRN PRN Reason: SHORT OF BREATH/WHEEZING Amino Acids (Prosource No Carb Liquid Pkt) 30 ml PO BID [facility] Last Admin: 09/04/16 09:40 Dose: 30 ml Ascorbic Acid (Vitamin C -) 500 mg PO DAILY [facility] Last Admin: 09/04/16 09:40 Dose: 500 mg Baclofen (Lioresal -) 10 mg PO DAILY [facility] Last Admin: 09/04/16 09:41 Dose: 10 mg Citalopram Hydrobromide (Celexa -) 20 mg PO DAILY [facility] Last Admin: 09/04/16 09:43 Dose: Not Given Diazepam (Valium -) 5 mg PO HS [facility] Last Admin: 09/04/16 00:16 Dose: Not Given Docusate Sodium (Colace -) 100 mg PO DAILY [facility] Last Admin: 09/04/16 09:41 Dose: 100 mg Enoxaparin Sodium (Lovenox -) 40 mg SQ DAILY [facility] Last Admin: 09/04/16 09:40 Dose: 40 mg Ceftriaxone Sodium (Rocephin 2gm Ivpb (Pre-Docked)) 100 mls @ 200 mls/hr IVPB DAILY [facility] Last Admin: 09/04/16 09:41 Dose: 200 mls/hr Metronidazole (Flagyl 500mg Premixed Ivpb -) 100 mls @ 100 mls/hr IVPB Q8H-IV [facility] Last Admin: 09/04/16 09:41 Dose: 100 mls/hr Methylprednisolone Sodium Succinate (Solu-Medrol -) 40 mg IVPB Q8H-IV [facility] Last Admin: 09/04/16 09:41 Dose: 40 mg Nystatin/Triamcinolone Acetonide (Mycolog Ii Cream -) 1 applic TP BID [facility] Last Admin: 09/04/16 09:44 Dose: Not Given Senna (Senna -) 1 tab PO HS [facility] Last Admin: 09/03/16 21:29 Dose: Not Given Sodium Phosphate (Fleet Adult Rectal Enema -) 133 ml RC PRN PRN Zinc Sulfate (Orazinc -) 220 mg PO DAILY [facility] Last Admin: 09/04/16 09:41 Dose: 220 mg - Objective Vital Signs: Vital Signs Temperature 98.2 F 09/04/16 06:00 Pulse Rate 59 L 09/04/16 06:00 Respiratory Rate 16 09/04/16 06:00 Blood Pressure 118/74 09/04/16 06:00 O2 Sat by Pulse Oximetry (%) 98 09/03/16 21:00 Constitutional: Yes: Calm, Thin Eyes: Yes: WNL HENT: Yes: WNL Neck: Yes: WNL Cardiovascular: Yes: Regular Rate and Rhythm, S1, S2 Respiratory: Yes: Diminished Gastrointestinal: Yes: Normal Bowel Sounds, Soft Extremities: Yes: WNL Edema: Yes Edema: LLE: Trace, RLE: Trace Neurological: Yes: Other (lower ext parylysis) Labs: CBC, BMP 09/03/16 05:35 09/03/16 05:35 INR, PTT INR 1.18 (0.82-1.09) H 08/31/16 16:15 Problem List - Problems (1) COPD exacerbation Code(s): J44.1 - CHRONIC OBSTRUCTIVE PULMONARY DISEASE W (ACUTE) EXACERBATION (2) Hypoxia Code(s): R09.02 - HYPOXEMIA (3) Pneumonia Code(s): J18.9 - PNEUMONIA, UNSPECIFIED ORGANISM Qualifiers: Pneumonia type: due to unspecified organism Lung location: unspecified part of lung (4) Acute respiratory failure with hypoxemia Code(s): J96.01 - ACUTE RESPIRATORY FAILURE WITH HYPOXIA (5) Breast CA Code(s): C50.919 - MALIGNANT NEOPLASM OF UNSP SITE OF UNSPECIFIED FEMALE BREAST Assessment/Plan IMP ACUTE HYPOXEMIC RESPIRATORY FAILURE IMPROVING COPD EXACERBATION PNEUMONIA BRONCHITIS METASTATIC BREAST CA LOWER EXTREMITY PARALYSIS SPINAL METS PLAN ANTIBIOTICS PER ID INHALED BRONCHODILATORS O2 TO MAINTAIN O2 SAT 90% SOLUMEDROL TAPER ? BX T SPINE DR FOUNTAIN Problem List - Problems (1) COPD exacerbation Code(s): J44.1 - CHRONIC OBSTRUCTIVE PULMONARY DISEASE W (ACUTE) EXACERBATION (2) Hypoxia Code(s): R09.02 - HYPOXEMIA (3) Pneumonia Code(s): J18.9 - PNEUMONIA, UNSPECIFIED ORGANISM Qualifiers: Pneumonia type: due to unspecified organism Lung location: unspecified part of lung (4) Acute respiratory failure with hypoxemia Code(s): J96.01 - ACUTE RESPIRATORY FAILURE WITH HYPOXIA (5) Breast CA Code(s): C50.919 - MALIGNANT NEOPLASM OF UNSP SITE OF UNSPECIFIED FEMALE BREAST
--- NOTE | 2016-09-04 15:43 | PN ---
Progress Note, Physician Chief Complaint: SOB improving Tele: sinus with pac's History of Present Illness: This is a 66 year old female with a PMH of COPD, smoking, and pressure ulcers secondary to immobility. She was sent from her facility to the ED and was noted to be hypoxic and noted to have a UTI. She reported a nonproductive cough and worsening SOB for about 3 days prior to admission. EKG showed sinus bradycardia with marked sinus arrhythmia and NSSTTW changes. CXR showed possible left basilar consolidation and chest CT confirmed basilar infiltrates. - Current Medication List Current Medications: Active Medications Acetaminophen (Tylenol -) 650 mg PO Q4H PRN PRN Reason: FEVER OR PAIN Last Admin: 09/04/16 03:16 Dose: 650 mg Albuterol Sulfate (Ventolin 0.083% Nebulizer Soln -) 1 amp NEB Q6H PRN PRN Reason: SHORT OF BREATH/WHEEZING Amino Acids (Prosource No Carb Liquid Pkt) 30 ml PO BID [facility] Last Admin: 09/04/16 09:40 Dose: 30 ml Ascorbic Acid (Vitamin C -) 500 mg PO DAILY [facility] Last Admin: 09/04/16 09:40 Dose: 500 mg Baclofen (Lioresal -) 10 mg PO DAILY [facility] Last Admin: 09/04/16 09:41 Dose: 10 mg Citalopram Hydrobromide (Celexa -) 20 mg PO DAILY [facility] Last Admin: 09/04/16 09:43 Dose: Not Given Diazepam (Valium -) 5 mg PO HS [facility] Last Admin: 09/04/16 00:16 Dose: Not Given Docusate Sodium (Colace -) 100 mg PO DAILY [facility] Last Admin: 09/04/16 09:41 Dose: 100 mg Enoxaparin Sodium (Lovenox -) 40 mg SQ DAILY [facility] Last Admin: 09/04/16 09:40 Dose: 40 mg Ceftriaxone Sodium (Rocephin 2gm Ivpb (Pre-Docked)) 100 mls @ 200 mls/hr IVPB DAILY [facility] Last Admin: 09/04/16 09:41 Dose: 200 mls/hr Metronidazole (Flagyl 500mg Premixed Ivpb -) 100 mls @ 100 mls/hr IVPB Q8H-IV [facility] Last Admin: 09/04/16 09:41 Dose: 100 mls/hr Methylprednisolone Sodium Succinate (Solu-Medrol -) 40 mg IVPB Q8H-IV [facility] Last Admin: 09/04/16 09:41 Dose: 40 mg Nystatin/Triamcinolone Acetonide (Mycolog Ii Cream -) 1 applic TP BID [facility] Last Admin: 09/04/16 09:44 Dose: Not Given Senna (Senna -) 1 tab PO HS [facility] Last Admin: 09/03/16 21:29 Dose: Not Given Sodium Phosphate (Fleet Adult Rectal Enema -) 133 ml RC PRN PRN Zinc Sulfate (Orazinc -) 220 mg PO DAILY [facility] Last Admin: 09/04/16 09:41 Dose: 220 mg - Objective Vital Signs: Vital Signs Temperature 98 F 09/04/16 08:00 Pulse Rate 59 L 09/04/16 08:00 Respiratory Rate 20 09/04/16 08:00 Blood Pressure 119/71 09/04/16 08:00 O2 Sat by Pulse Oximetry (%) 98 09/04/16 08:00 Constitutional: Yes: No Distress Neck: Yes: Supple Cardiovascular: Yes: Regular Rate and Rhythm. No: JVD, Murmur Respiratory: Yes: CTA Bilaterally Gastrointestinal: Yes: Normal Bowel Sounds, Soft Edema: No Labs: CBC, BMP 09/03/16 05:35 09/03/16 05:35 INR, PTT INR 1.18 (0.82-1.09) H 08/31/16 16:15 Problem List - Problems (1) Acute respiratory failure with hypoxemia Code(s): J96.01 - ACUTE RESPIRATORY FAILURE WITH HYPOXIA Assessment/Plan This is a 66 year old female with a PMH of COPD, smoking, and pressure ulcers secondary to immobility. She was sent from her facility to the ED and was noted to be hypoxic and noted to have a UTI. She reported a nonproductive cough and worsening SOB for about 3 days prior to admission. EKG showed sinus bradycardia with marked sinus arrhythmia and NSSTTW changes. CXR showed possible left basilar consolidation and chest CT confirmed basilar infiltrates. 1) Dyspnea likely related to COPD exacerbation Symptoms improving with treatment Continue Abx and rec's as per pulmonary Vitals stable Does not appear to have any significant chf on exam Can contact patient's healthcare management Dr. Luis [phone] for records and reports recent echocardiogram
--- NOTE | 2016-09-04 18:03 | CONSULT ---
Consult - Past Medical History [employer] [place]: Yes: Peripheral Neuropathy Pulmonary: Yes: COPD ...: No - Past Surgical History Past Surgical History: Yes: Cholecystectomy, Tonsillectomy - Alcohol/Substance Use Hx Alcohol Use: No - Smoking History Smoking history: Current every day smoker Have you smoked in the past 12 months: Yes Aproximately how many cigarettes per day: 4 Home Medications - Allergies Allergies/Adverse Reactions: Allergies Allergy/AdvReac Type Severity Reaction Status Date / Time epinephrine Allergy Verified 08/31/16 15:42 procaine Allergy Verified 08/31/16 15:42 sulfamethoxazole Allergy Verified 08/31/16 15:42 trimethoprim Allergy Verified 08/31/16 15:42 - Home Medications Home Medications: Ambulatory Orders Albuterol 0.083% Nebulizer Bella [Ventolin 0.083%] 1 neb NEB QID PRN 08/31/16 Amino Acids/Protein Hydrolys [Pro-Stat Liquid] 30 ml PO BID 08/31/16 Amox-Tr/K Cl [Augmentin - 875Mg Tablet] 1 tab PO BID 08/31/16 Ascorbic Acid [Vitamin C -] 500 mg PO DAILY 08/31/16 Azithromycin [Zithromax -] 1 tab PO DAILY 08/31/16 Baclofen 10 mg PO DAILY 08/31/16 Calcium Carbonate/Vitamin D3 [Eq Calcium 500 + Vit D 400 Tab] 1 each PO BID 04/18 Citalopram Hydrobromide [Celexa -] 20 mg PO DAILY 08/31/16 Diazepam [Valium] 5 mg PO HS 08/31/16 Docusate Sodium [Colace -] 100 mg PO DAILY 08/31/16 Enoxaparin [Lovenox -] 40 mg SQ DAILY 08/31/16 Guaifenesin [Robitussin -] 10 ml PO Q6H PRN 08/31/16 Loperamide HCl [Imodium A-D] 2 mg PO PRN 08/31/16 Magnesium Hydroxide [Milk of Magnesia] 400 mg PO PRN 08/31/16 Na Phos,M-B/Na Phos,Di-Ba [Fleet Enema] 133 ml RC PRN 08/31/16 Nystatin/Triamcinolone Top Cr [Mycolog II Cream -] 1 applic TP BID 08/31/16 Sennosides [Senna] 8.6 mg PO HS 08/31/16 Zinc Sulfate 220 mg PO DAILY 08/31/16 Physical Exam Vital Signs: Vital Signs Temperature 98.2 F 09/04/16 14:00 Pulse Rate 61 09/04/16 14:00 Respiratory Rate 20 09/04/16 14:00 Blood Pressure 100/49 09/04/16 14:00 O2 Sat by Pulse Oximetry (%) 98 09/04/16 08:00 Labs: CBC, BMP 09/03/16 05:35 09/03/16 05:35 Assessment/Plan Vascular Surgery The patient is a 66 year old female with a significant past medical history of COPD, cigarette smoking, pressure ulcers secondary to immobility, sent from [facility] by ambulance to the Emergency Department with shortness of breath, low O2 sat (88), and UTI. The patient reports that she has had shortness of breath, and a cough for weeks that has become worse over the past 2 to 3 days. She describes the cough as nonproductive, as it stays in her chest. She admits to nebulizer treatments with little relief, as well as Prednisone started 2 days ago which she discontinued. She states that she recently had a chest XRay which was negative. She also reports that her blood pressure and heart rate have been high. The patient states that she was informed hours ago that she also has a UTI. Patient has multiple pressure ulcers due to immobility. The patient denies chest pain, palpitations, and diaphoresis. Patient denies fever, or chills. Patient denies nausea, vomiting, and diarrhea. Patient denies headache, dizziness, and visual changes. Seen in wound care clinic PE Head - NC/AT lung - CTA Heart - RRR abd - soft,nt,nd coccyx ulcer - clean, pink, with granulation . 3x3cm Right posterior thigh wound - slough in wound. 4x4cm. Right heel wound - 2x2 - clean pink, granulation A/P Santyl to all wounds. If right posterior thigh wound doesn't get better, will need bedside debridement. offload Luis Garcia DO
[2016-09-04] MEDS: COLLAGENASE CLOSTRIDIUM HIST. 30 GRAMS TUBE TP SCH (19:10)
[2016-09-04] MEDS: SENNOSIDES 8.6MG TABLET (FP) PO SCH (21:30)
--- NOTE | 2016-09-04 21:50 | PN ---
Progress Note, Physician Chief Complaint: PATIENT CONFUSED/PARANOID/BLAMING PEOPLE FOR HER ILLNESS PASTORAL CARE BEDSIDE - Current Medication List Current Medications: Active Medications Acetaminophen (Tylenol -) 650 mg PO Q4H PRN PRN Reason: FEVER OR PAIN Last Admin: 09/04/16 03:16 Dose: 650 mg Albuterol Sulfate (Ventolin 0.083% Nebulizer Soln -) 1 amp NEB Q6H PRN PRN Reason: SHORT OF BREATH/WHEEZING Amino Acids (Prosource No Carb Liquid Pkt) 30 ml PO BID [facility] Last Admin: 09/04/16 21:29 Dose: Not Given Ascorbic Acid (Vitamin C -) 500 mg PO DAILY [facility] Last Admin: 09/04/16 09:40 Dose: 500 mg Baclofen (Lioresal -) 10 mg PO DAILY [facility] Last Admin: 09/04/16 09:41 Dose: 10 mg Citalopram Hydrobromide (Celexa -) 20 mg PO DAILY [facility] Last Admin: 09/04/16 09:43 Dose: Not Given Collagenase (Santyl -) 1 applic TP DAILY [facility] Last Admin: 09/04/16 19:10 Dose: Not Given Diazepam (Valium -) 5 mg PO HS [facility] Last Admin: 09/04/16 00:16 Dose: Not Given Docusate Sodium (Colace -) 100 mg PO DAILY [facility] Last Admin: 09/04/16 09:41 Dose: 100 mg Enoxaparin Sodium (Lovenox -) 40 mg SQ DAILY [facility] Last Admin: 09/04/16 09:40 Dose: 40 mg Ceftriaxone Sodium (Rocephin 2gm Ivpb (Pre-Docked)) 100 mls @ 200 mls/hr IVPB DAILY [facility] Last Admin: 09/04/16 09:41 Dose: 200 mls/hr Metronidazole (Flagyl 500mg Premixed Ivpb -) 100 mls @ 100 mls/hr IVPB Q8H-IV [facility] Last Admin: 09/04/16 18:14 Dose: 100 mls/hr Methylprednisolone Sodium Succinate (Solu-Medrol -) 40 mg IVPB Q8H-IV [facility] Last Admin: 09/04/16 18:14 Dose: 40 mg Nystatin/Triamcinolone Acetonide (Mycolog Ii Cream -) 1 applic TP BID [facility] Last Admin: 09/04/16 21:29 Dose: 1 applic Senna (Senna -) 1 tab PO HS [facility] Last Admin: 09/04/16 21:30 Dose: Not Given Sodium Phosphate (Fleet Adult Rectal Enema -) 133 ml RC PRN PRN Zinc Sulfate (Orazinc -) 220 mg PO DAILY [facility] Last Admin: 09/04/16 09:41 Dose: 220 mg - Objective Vital Signs: Vital Signs Temperature 98.9 F 09/04/16 17:00 Pulse Rate 63 09/04/16 17:00 Respiratory Rate 20 09/04/16 17:00 Blood Pressure 116/62 09/04/16 17:00 O2 Sat by Pulse Oximetry (%) 98 09/04/16 08:00 Constitutional: Yes: Moderate Distress Eyes: Yes: WNL HENT: Yes: WNL Neck: Yes: WNL Cardiovascular: Yes: WNL Respiratory: Yes: On Nasal O2 Gastrointestinal: Yes: WNL Genitourinary: Yes: WNL, Incontinence Musculoskeletal: Yes: Back Pain Extremities: Yes: WNL Edema: No Peripheral Pulses WNL: Yes Integumentary: Yes: Rash Wound/Incision: Yes: Dressing Dry and Intact Neurological: Yes: Confusion, Unsteady Gait, Weakness ...Motor Strength: LLE, RLE Psychiatric: Yes: Agitated, Other Labs: CBC, BMP 09/03/16 05:35 09/03/16 05:35 INR, PTT INR 1.18 (0.82-1.09) H 08/31/16 16:15 Problem List - Problems (1) COPD exacerbation Code(s): J44.1 - CHRONIC OBSTRUCTIVE PULMONARY DISEASE W (ACUTE) EXACERBATION (2) Hypoxia Code(s): R09.02 - HYPOXEMIA (3) Wound infection Code(s): T14.8 - OTHER INJURY OF UNSPECIFIED BODY REGION L08.9 - LOCAL INFECTION OF THE SKIN AND SUBCUTANEOUS TISSUE, UNSP (4) Pneumonia Code(s): J18.9 - PNEUMONIA, UNSPECIFIED ORGANISM Qualifiers: Pneumonia type: due to unspecified organism Lung location: unspecified part of lung (5) Spinal cord compression due to 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 Assessment/Plan PALLIATIVE CARE EVAL PAIN MEDS IV ABX NEBS PSYCHIATRY EVAL PATIENT DOES NOT HAVE CAPACITY TO MAKE DECISIONS HCP FOR ADVANCED DIRECTIVES
[2016-09-05] MEDS: methylPREDNISolone NA SUCC 40 MG/1 ML VIAL IVPB SCH ×3 (01:51→22:06)
[2016-09-05] MEDS: METRONIDAZOLE 500 MG PREMIXED 100 ML IVPB SCH ×3 (01:51→18:36)
--- NOTE | 2016-09-05 07:59 | PN ---
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 Med onc input noted No chance of LE recovery given time onset and severity of LE motor paralysis >7 months ago Pros and cons of tx approaches discussed previously x2 Pt reportedly offered bx by treating oncologist previously but did not want to proceed at that time (late 2015) Functional recovery rate for LE motor function little to none Seen by vascular for wound care
[2016-09-05] MEDS ORDERED: PT OWN MED DRAWER 7, Y5N ONE (09:45)
[2016-09-05] MEDS: DOCUSATE SODIUM 100 MG CAPSULE (FP) PO SCH (09:52)
[2016-09-05] MEDS: BACLOFEN 10 MG TABLET (FP) PO SCH (09:52)
[2016-09-05] MEDS: ASCORBIC ACID 500 MG TABLET (FP) PO SCH (09:52)
[2016-09-05] MEDS: CITALOPRAM HYDROBROMIDE 20 MG TABLET (FP) PO SCH (09:54)
[2016-09-05] MEDS: ZINC SULFATE 220 MG CAPSULE (FP) PO SCH (09:55)
[2016-09-05] MEDS: NYSTATIN/TRIAMCINOLONE TOPICAL CREAM 15 GM TUBE TP SCH ×2 (09:55→22:04)
[2016-09-05] MEDS: AMINO ACIDS/PROTEIN HYDROLYS 30 ML LIQUID.PKT PO SCH ×2 (09:55→22:05)
[2016-09-05] MEDS: ENOXAPARIN NA (PORCINE) 40 MG/0.4 ML DISP.SYRIN SQ SCH (09:55)
[2016-09-05] MEDS: CEFTRIAXONE 2G/100 ML IVPB SCH (10:06)
[2016-09-05] MEDS: COLLAGENASE CLOSTRIDIUM HIST. 30 GRAMS TUBE TP SCH (10:09)
--- NOTE | 2016-09-05 10:16 | PN ---
Progress Note (short form) - Note Progress Note: PULMONARY +nonproductive cough. No fevers or chills. Denies shortness of breath. Last Vital Signs Temp Pulse Resp BP Pulse Ox 98.4 F 47 L 18 116/61 98 09/05/16 05:55 09/05/16 05:55 09/05/16 05:55 09/05/16 05:55 09/04/16 21:00 Gen: NAD at rest Heart: RRR Lung: scattered wheezes Abd: soft, nontender Ext: no edema CBC, BMP 09/03/16 05:35 09/03/16 05:35 Active Medications Acetaminophen (Tylenol -) 650 mg PO Q4H PRN PRN Reason: FEVER OR PAIN Last Admin: 09/04/16 03:16 Dose: 650 mg Albuterol Sulfate (Ventolin 0.083% Nebulizer Soln -) 1 amp NEB Q6H PRN PRN Reason: SHORT OF BREATH/WHEEZING Amino Acids (Prosource No Carb Liquid Pkt) 30 ml PO BID [facility] Last Admin: 09/05/16 09:55 Dose: 30 ml Ascorbic Acid (Vitamin C -) 500 mg PO DAILY [facility] Last Admin: 09/05/16 09:52 Dose: 500 mg Baclofen (Lioresal -) 10 mg PO DAILY [facility] Last Admin: 09/05/16 09:52 Dose: 10 mg Citalopram Hydrobromide (Celexa -) 20 mg PO DAILY [facility] Last Admin: 09/05/16 09:54 Dose: Not Given Collagenase (Santyl -) 1 applic TP DAILY [facility] Last Admin: 09/05/16 10:09 Dose: 1 applic Diazepam (Valium -) 5 mg PO HS [facility] Last Admin: 09/04/16 23:55 Dose: Not Given Docusate Sodium (Colace -) 100 mg PO DAILY [facility] Last Admin: 09/05/16 09:52 Dose: 100 mg Enoxaparin Sodium (Lovenox -) 40 mg SQ DAILY [facility] Last Admin: 09/05/16 09:55 Dose: 40 mg Ceftriaxone Sodium (Rocephin 2gm Ivpb (Pre-Docked)) 100 mls @ 200 mls/hr IVPB DAILY [facility] Last Admin: 09/05/16 10:06 Dose: 200 mls/hr Metronidazole (Flagyl 500mg Premixed Ivpb -) 100 mls @ 100 mls/hr IVPB Q8H-IV [facility] Last Admin: 09/05/16 01:51 Dose: 100 mls/hr Methylprednisolone Sodium Succinate (Solu-Medrol -) 40 mg IVPB Q8H-IV [facility] Last Admin: 09/05/16 09:56 Dose: 40 mg Nystatin/Triamcinolone Acetonide (Mycolog Ii Cream -) 1 applic TP BID [facility] Last Admin: 09/05/16 09:55 Dose: 1 applic Senna (Senna -) 1 tab PO HS [facility] Last Admin: 09/04/16 21:30 Dose: Not Given Sodium Phosphate (Fleet Adult Rectal Enema -) 133 ml RC PRN PRN Zinc Sulfate (Orazinc -) 220 mg PO DAILY [facility] Last Admin: 09/05/16 09:55 Dose: 220 mg A/P Pneumonia Acute COPD Exacerbation Metastatic Breast Ca with spinal mets Lower Extremity Paralysis - continue antibiotics - will decrease medrol to q12h - inhaled bronchodilators - O2 to keep SpO2 >90% - DVT prophylaxis
--- NOTE | 2016-09-05 13:03 | PN ---
Progress Note, Physician History of Present Illness: Reports dry cough Unable to provide sputum specimen No c/o chest pain No c/o fever/ chills Afebrile on steroids - Current Medication List Current Medications: Active Medications Acetaminophen (Tylenol -) 650 mg PO Q4H PRN PRN Reason: FEVER OR PAIN Last Admin: 09/04/16 03:16 Dose: 650 mg Albuterol Sulfate (Ventolin 0.083% Nebulizer Soln -) 1 amp NEB Q6H PRN PRN Reason: SHORT OF BREATH/WHEEZING Amino Acids (Prosource No Carb Liquid Pkt) 30 ml PO BID [facility] Last Admin: 09/05/16 09:55 Dose: 30 ml Ascorbic Acid (Vitamin C -) 500 mg PO DAILY [facility] Last Admin: 09/05/16 09:52 Dose: 500 mg Baclofen (Lioresal -) 10 mg PO DAILY [facility] Last Admin: 09/05/16 09:52 Dose: 10 mg Citalopram Hydrobromide (Celexa -) 20 mg PO DAILY [facility] Last Admin: 09/05/16 09:54 Dose: Not Given Collagenase (Santyl -) 1 applic TP DAILY [facility] Last Admin: 09/05/16 10:09 Dose: 1 applic Diazepam (Valium -) 5 mg PO HS [facility] Last Admin: 09/04/16 23:55 Dose: Not Given Docusate Sodium (Colace -) 100 mg PO DAILY [facility] Last Admin: 09/05/16 09:52 Dose: 100 mg Enoxaparin Sodium (Lovenox -) 40 mg SQ DAILY [facility] Last Admin: 09/05/16 09:55 Dose: 40 mg Ceftriaxone Sodium (Rocephin 2gm Ivpb (Pre-Docked)) 100 mls @ 200 mls/hr IVPB DAILY [facility] Last Admin: 09/05/16 10:06 Dose: 200 mls/hr Metronidazole (Flagyl 500mg Premixed Ivpb -) 100 mls @ 100 mls/hr IVPB Q8H-IV [facility] Last Admin: 09/05/16 11:34 Dose: 100 mls/hr Methylprednisolone Sodium Succinate (Solu-Medrol -) 40 mg IVPB BID [facility] Nystatin/Triamcinolone Acetonide (Mycolog Ii Cream -) 1 applic TP BID [facility] Last Admin: 09/05/16 09:55 Dose: 1 applic Senna (Senna -) 1 tab PO HS [facility] Last Admin: 09/04/16 21:30 Dose: Not Given Sodium Phosphate (Fleet Adult Rectal Enema -) 133 ml RC PRN PRN Zinc Sulfate (Orazinc -) 220 mg PO DAILY [facility] Last Admin: 09/05/16 09:55 Dose: 220 mg - Objective Vital Signs: Vital Signs Temperature 98.1 F 09/05/16 09:00 Pulse Rate 100 H 09/05/16 09:00 Respiratory Rate 20 09/05/16 09:00 Blood Pressure 106/63 09/05/16 09:00 O2 Sat by Pulse Oximetry (%) 98 09/05/16 09:00 Constitutional: Yes: No Distress Eyes: Yes: Conjunctiva Clear Cardiovascular: Yes: Regular Rate and Rhythm, S1, S2 Respiratory: Yes: Rhonchi Gastrointestinal: Yes: Normal Bowel Sounds, Soft. No: Tenderness Breast(s): Yes: Other (+ L breast mass) Edema: No Integumentary: Yes: Other (+ decubitus ulcers sacrum, ischium R heel) Labs: CBC, BMP 09/03/16 05:35 09/03/16 05:35 INR, PTT INR 1.18 (0.82-1.09) H 08/31/16 16:15 Assessment/Plan Bibasilar infiltrates Exacerbation COPD UTI Decubitus ulcers Continue empiric ceftriaxone/ flagyl Steroids local wound care
--- NOTE | 2016-09-05 15:43 | PN ---
Progress Note, Physician Chief Complaint: PATIENT IS CONFUSED AND OFF TANGENT WITH CONVERSATIONS PATIENT ASKING FOR 10 MORE MINUTES TO DISCUSS TOPIC OF CARE THIS HAS OCCURRED DAILY WITH HER. - Current Medication List Current Medications: Active Medications Acetaminophen (Tylenol -) 650 mg PO Q4H PRN PRN Reason: FEVER OR PAIN Last Admin: 09/04/16 03:16 Dose: 650 mg Albuterol Sulfate (Ventolin 0.083% Nebulizer Soln -) 1 amp NEB Q6H PRN PRN Reason: SHORT OF BREATH/WHEEZING Amino Acids (Prosource No Carb Liquid Pkt) 30 ml PO BID [facility] Last Admin: 09/05/16 09:55 Dose: 30 ml Ascorbic Acid (Vitamin C -) 500 mg PO DAILY [facility] Last Admin: 09/05/16 09:52 Dose: 500 mg Baclofen (Lioresal -) 10 mg PO DAILY [facility] Last Admin: 09/05/16 09:52 Dose: 10 mg Citalopram Hydrobromide (Celexa -) 20 mg PO DAILY [facility] Last Admin: 09/05/16 09:54 Dose: Not Given Collagenase (Santyl -) 1 applic TP DAILY [facility] Last Admin: 09/05/16 10:09 Dose: 1 applic Diazepam (Valium -) 5 mg PO HS [facility] Last Admin: 09/04/16 23:55 Dose: Not Given Docusate Sodium (Colace -) 100 mg PO DAILY [facility] Last Admin: 09/05/16 09:52 Dose: 100 mg Enoxaparin Sodium (Lovenox -) 40 mg SQ DAILY [facility] Last Admin: 09/05/16 09:55 Dose: 40 mg Ceftriaxone Sodium (Rocephin 2gm Ivpb (Pre-Docked)) 100 mls @ 200 mls/hr IVPB DAILY [facility] Last Admin: 09/05/16 10:06 Dose: 200 mls/hr Metronidazole (Flagyl 500mg Premixed Ivpb -) 100 mls @ 100 mls/hr IVPB Q8H-IV [facility] Last Admin: 09/05/16 11:34 Dose: 100 mls/hr Methylprednisolone Sodium Succinate (Solu-Medrol -) 40 mg IVPB BID [facility] Nystatin/Triamcinolone Acetonide (Mycolog Ii Cream -) 1 applic TP BID [facility] Last Admin: 09/05/16 09:55 Dose: 1 applic Senna (Senna -) 1 tab PO HS [facility] Last Admin: 09/04/16 21:30 Dose: Not Given Sodium Phosphate (Fleet Adult Rectal Enema -) 133 ml RC PRN PRN Zinc Sulfate (Orazinc -) 220 mg PO DAILY [facility] Last Admin: 09/05/16 09:55 Dose: 220 mg - Objective Vital Signs: Vital Signs Temperature 98.1 F 09/05/16 09:00 Pulse Rate 100 H 09/05/16 09:00 Respiratory Rate 20 09/05/16 09:00 Blood Pressure 106/63 09/05/16 09:00 O2 Sat by Pulse Oximetry (%) 98 09/05/16 09:00 Constitutional: Yes: Mild Distress Eyes: Yes: WNL HENT: Yes: WNL Neck: Yes: WNL Cardiovascular: Yes: WNL Respiratory: Yes: Rhonchi Gastrointestinal: Yes: WNL Genitourinary: Yes: WNL Musculoskeletal: Yes: Back Pain Extremities: Yes: WNL Edema: No Peripheral Pulses WNL: Yes Integumentary: Yes: WNL Wound/Incision: Yes: Clean/Dry Neurological: Yes: Confusion, Pre-Existing Deficit ...Motor Strength: LLE, RLE Psychiatric: Yes: Agitated, Other Labs: CBC, BMP 09/03/16 05:35 09/03/16 05:35 INR, PTT INR 1.18 (0.82-1.09) H 08/31/16 16:15 Problem List - Problems (1) COPD exacerbation Code(s): J44.1 - CHRONIC OBSTRUCTIVE PULMONARY DISEASE W (ACUTE) EXACERBATION (2) Hypoxia Code(s): R09.02 - HYPOXEMIA (3) Wound infection Code(s): T14.8 - OTHER INJURY OF UNSPECIFIED BODY REGION L08.9 - LOCAL INFECTION OF THE SKIN AND SUBCUTANEOUS TISSUE, UNSP (4) Pneumonia Code(s): J18.9 - PNEUMONIA, UNSPECIFIED ORGANISM Qualifiers: Pneumonia type: due to unspecified organism Lung location: unspecified part of lung (5) Spinal cord compression due to 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 (6) Psychiatric disorder Code(s): F99 - MENTAL DISORDER, NOT OTHERWISE SPECIFIED (7) Psychoses Code(s): F29 - UNSP PSYCHOSIS NOT DUE TO A SUBSTANCE OR KNOWN PHYSIOL COND Assessment/Plan HOSPICE CARE WORKUP ONCOLOGY WORKUP PSYCHIATRY EVAL STEROIDS TAPER DOWN NEBS ABX
--- NOTE | 2016-09-05 20:22 | PN ---
Progress Note (short form) - Note Progress Note: Patient seen and examined Daughter at bedside No significant pain N.S. suggest virtually no chance for recovery. Ros - no headaches, diplopia, epistaxis , dysphagia, chest pain, SOB, dyspnea, nausea, emesis, Positive constipation positive bedsores, , positive incontinence PE HEENT: ABHI, EOM Intact Oropharynx: No thrush, No mucositis Neck: Supple Nodes: Without adenopathy Breasts: s/p left mastectomy with chest wall recurrence Cor: RSR, No murmurs, No gallops Lungs: diminished breath sounds bilaterally Abd: Soft, Normal bowel sounds, No organomegaly,distended Ext:No significant edema Skin: No rashes, Integument skin breakdown CBC, BMP 09/03/16 05:35 09/03/16 05:35 Current Medications Generic Name Dose Route Start Last Admin Trade Name Freq PRN Reason Stop Dose Admin Acetaminophen 650 mg 08/31/16 20:27 09/04/16 03:16 Tylenol - PO 650 mg Q4H PRN Administration FEVER OR PAIN Albuterol Sulfate 1 amp 08/31/16 20:24 Ventolin 0.083% Nebulizer Soln - NEB Q6H PRN SHORT OF BREATH/WHEEZING Amino Acids 30 ml 08/31/16 22:00 09/05/16 09:55 Prosource No Carb Liquid Pkt PO 30 ml BID [facility] Administration Ascorbic Acid 500 mg 09/01/16 10:00 09/05/16 09:52 Vitamin C - PO 500 mg DAILY [facility] Administration Baclofen 10 mg 09/01/16 10:00 09/05/16 09:52 Lioresal - PO 10 mg DAILY [facility] Administration Citalopram Hydrobromide 20 mg 09/01/16 10:00 09/05/16 09:54 Celexa - PO Not Given DAILY [facility] Collagenase 1 applic 09/04/16 18:15 09/05/16 10:09 Santyl - TP 1 applic DAILY [facility] Administration Diazepam 5 mg 08/31/16 22:00 09/04/16 23:55 Valium - PO Not Given HS [facility] Docusate Sodium 100 mg 09/01/16 10:00 09/05/16 09:52 Colace - PO 100 mg DAILY [facility] Administration Enoxaparin Sodium 40 mg 09/01/16 10:00 09/05/16 09:55 Lovenox - SQ 40 mg DAILY [facility] Administration Ceftriaxone Sodium 100 mls @ 200 mls/hr 09/01/16 10:45 09/05/16 10:06 Rocephin 2gm Ivpb (Pre-Docked) IVPB 200 mls/hr DAILY [facility] Administration Metronidazole 100 mls @ 100 mls/hr 09/01/16 10:45 09/05/16 18:36 Flagyl 500mg Premixed Ivpb - IVPB 100 mls/hr Q8H-IV [facility] Administration Methylprednisolone Sodium Succinate 40 mg 09/05/16 22:00 Solu-Medrol - IVPB BID [facility] Nystatin/Triamcinolone Acetonide 1 applic 08/31/16 22:00 09/05/16 09:55 Mycolog Ii Cream - TP 1 applic BID [facility] Administration Senna 1 tab 08/31/16 22:00 09/04/16 21:30 Senna - PO Not Given HS [facility] Sodium Phosphate 133 ml 08/31/16 20:30 Fleet Adult Rectal Enema - RC PRN PRN Zinc Sulfate 220 mg 09/01/16 10:00 09/05/16 09:55 Orazinc - PO 220 mg DAILY [facility] Administration Impression: metastatic breast ca Bone mets, Chest wall recurrence. Little chance of recovery from plegia Consider Patient has been receiving faslodex since surgery. She has developed spine mets and chest wall recurrence since. It is not working!! The best we might do is to do a small biopsy of the chest wall mass and look for estrogen receptors. Previously patient was receptor positive as she had been on faslodex and arimidex. She may have developed a resistance and is now ER negative OR the ER+ cells may have been eliminated by prior hormonal therapy. If she is ER+, then we can try a new hormone. If she is ER-, then hormones will not work. An RT consult can be called. It is unclear if any therapy to the spine will be of benefit and she is not in any significant pains. Zometa can be given for her bones. She seems reluctant to take this. I spent 50 minutes in consultation with this patient and daughter.
[2016-09-05] MEDS: ACETAMINOPHEN 325 MG TABLET (FP) PO PRN (22:02)
[2016-09-05] MEDS: diazePAM 5 MG TABLET PO SCH (22:06)
[2016-09-05] MEDS: SENNOSIDES 8.6MG TABLET (FP) PO SCH (22:06)
[2016-09-06] MEDS: METRONIDAZOLE 500 MG PREMIXED 100 ML IVPB SCH ×3 (01:19→17:52)
--- NOTE | 2016-09-06 07:11 | PN ---
Mental Health Exam - Mental Status Exam Alert and Oriented to: Time, Place, Person Cognitive Function: Grossly Intact Patient Appearance: Well Groomed Mood: Depressed, Fearful, Nervous, Irritable Affect: Appropriate, Mood Congruent Patient Behavior: Crying, Suspicious, Fearful, Talkative, Cooperative Speech Pattern: Clear, Perseverating Voice Loudness: Normal Thought Process: Intact Thought Disorder: Not Present Hallucinations: None Suicidal Ideation: Denies Homicidal Ideation: Denies Insight/Judgement: Fair Sleep: Fair ("i had a nice sleep last night") Appetite: Poor Muscle strength/Tone: Normal Gait/Station: Other (bed bound)
--- NOTE | 2016-09-06 07:22 | PN ---
Progress Note, Physician Chief Complaint: 'who called u, i have seemn over 20 doctors here' - Current Medication List Current Medications: Active Medications Acetaminophen (Tylenol -) 650 mg PO Q4H PRN PRN Reason: FEVER OR PAIN Last Admin: 09/05/16 22:02 Dose: 650 mg Albuterol Sulfate (Ventolin 0.083% Nebulizer Soln -) 1 amp NEB Q6H PRN PRN Reason: SHORT OF BREATH/WHEEZING Amino Acids (Prosource No Carb Liquid Pkt) 30 ml PO BID [facility] Last Admin: 09/05/16 22:05 Dose: Not Given Ascorbic Acid (Vitamin C -) 500 mg PO DAILY [facility] Last Admin: 09/05/16 09:52 Dose: 500 mg Baclofen (Lioresal -) 10 mg PO DAILY [facility] Last Admin: 09/05/16 09:52 Dose: 10 mg Citalopram Hydrobromide (Celexa -) 20 mg PO DAILY [facility] Last Admin: 09/05/16 09:54 Dose: Not Given Collagenase (Santyl -) 1 applic TP DAILY [facility] Last Admin: 09/05/16 10:09 Dose: 1 applic Diazepam (Valium -) 5 mg PO HS [facility] Last Admin: 09/05/16 22:06 Dose: Not Given Docusate Sodium (Colace -) 100 mg PO DAILY [facility] Last Admin: 09/05/16 09:52 Dose: 100 mg Enoxaparin Sodium (Lovenox -) 40 mg SQ DAILY [facility] Last Admin: 09/05/16 09:55 Dose: 40 mg Ceftriaxone Sodium (Rocephin 2gm Ivpb (Pre-Docked)) 100 mls @ 200 mls/hr IVPB DAILY [facility] Last Admin: 09/05/16 10:06 Dose: 200 mls/hr Metronidazole (Flagyl 500mg Premixed Ivpb -) 100 mls @ 100 mls/hr IVPB Q8H-IV [facility] Last Admin: 09/06/16 01:19 Dose: 100 mls/hr Methylprednisolone Sodium Succinate (Solu-Medrol -) 40 mg IVPB BID [facility] Last Admin: 09/05/16 22:06 Dose: 40 mg Nystatin/Triamcinolone Acetonide (Mycolog Ii Cream -) 1 applic TP BID [facility] Last Admin: 09/05/16 22:04 Dose: Not Given Senna (Senna -) 1 tab PO HS [facility] Last Admin: 09/05/16 22:06 Dose: Not Given Sodium Phosphate (Fleet Adult Rectal Enema -) 133 ml RC PRN PRN Zinc Sulfate (Orazinc -) 220 mg PO DAILY [facility] Last Admin: 09/05/16 09:55 Dose: 220 mg - Objective Vital Signs: Vital Signs Temperature 98.4 F 09/05/16 22:00 Pulse Rate 82 09/05/16 22:00 Respiratory Rate 18 09/05/16 22:00 Blood Pressure 100/62 09/05/16 22:00 O2 Sat by Pulse Oximetry (%) 98 09/05/16 21:00 Constitutional: Yes: Anxious ('i feel very anxious") Labs: CBC, BMP 09/03/16 05:35 09/03/16 05:35 INR, PTT INR 1.18 (0.82-1.09) H 08/31/16 16:15 Problem List - Problems (1) Mood altered Code(s): F39 - UNSPECIFIED MOOD [AFFECTIVE] DISORDER (2) Mood disorder due to a general medical condition Code(s): F06.30 - MOOD DISORDER DUE TO KNOWN PHYSIOLOGICAL CONDITION, UNSP Assessment/Plan Ms Handley is alert orientated at present. She has mets of bone from primary breast CA. Client is fearful going through crises, tearful as she spoke about putting her cat down, disposition of her apartment, loss of former independent lifestyle, including bed bound currently. Speaks clearly, denies SI, HI, AH or VH. No severe psychosis, no velma, mild depression related to medical condition. Agreed with start of celexa 20mg, counselled patient re importance of accepting temp. She claims that she threw up eact time she took it. Spoke with ARMAND Saravia on the unit. Refused her Valium last pm also, stated she is constipated? that may lead to some confusion. Recommend reduce to 10 mg per day in the am with breakfast. Thank for the consult
--- NOTE | 2016-09-06 09:23 | PN ---
Progress Note (short form) - Note Progress Note: PULMONARY CHART REVIEWED DESTRUCTIVE LESION NOTED T3/4/5 H/O BREAST CA S/P MASTECTOMY VSS/AFEBRILE ANICTERIC DIMINISHED BREAST SOUNDS BASES S1S2 BS+ EARLY CONTRACTION B/L UNABLE TO MOVE FROM KNEES DOWN B/L TOES UP GOING B/L MEDS/LABS/IMAGING/NOTES REVIEWED IMP ACUTE HYPOXEMIC RESPIRATORY FAILURE RESOLVED COPD EXACERBATION PNEUMONIA DESTRUCTIVE T4/5/6 LESIONS NOTED/SPINAL CORD COMPRESSION LIKELY METASTATIC BREAST CA PLAN ANTIBIOTICS PER ID INHALED BRONCHODILATORS O2 TO MAINTAIN O2 SAT 90% SHORT COURSE SOLUMEDROL ONCOLOGY INPUT APPRECIATED Rosario ROJAS MD
[2016-09-06] MEDS: methylPREDNISolone NA SUCC 40 MG/1 ML VIAL IVPB SCH ×2 (09:38→22:26)
[2016-09-06] MEDS: BACLOFEN 10 MG TABLET (FP) PO SCH (09:45)
[2016-09-06] MEDS: CITALOPRAM HYDROBROMIDE 20 MG TABLET (FP) PO SCH ×2 (09:45→09:50)
[2016-09-06] MEDS: ENOXAPARIN NA (PORCINE) 40 MG/0.4 ML DISP.SYRIN SQ SCH (09:45)
[2016-09-06] MEDS: ZINC SULFATE 220 MG CAPSULE (FP) PO SCH (09:45)
[2016-09-06] MEDS: ASCORBIC ACID 500 MG TABLET (FP) PO SCH (09:45)
[2016-09-06] MEDS: DOCUSATE SODIUM 100 MG CAPSULE (FP) PO SCH (09:45)
[2016-09-06] MEDS: COLLAGENASE CLOSTRIDIUM HIST. 30 GRAMS TUBE TP SCH (09:46)
[2016-09-06] MEDS: NYSTATIN/TRIAMCINOLONE TOPICAL CREAM 15 GM TUBE TP SCH ×2 (09:46→22:33)
[2016-09-06] MEDS: AMINO ACIDS/PROTEIN HYDROLYS 30 ML LIQUID.PKT PO SCH ×2 (09:46→22:35)
--- NOTE | 2016-09-06 09:47 | PN ---
Progress Note, Physician Chief Complaint: AWAKE ALERT AGREEING TO RT AND LUNG BIOPSY WE WILL NEED PSYCHIATRY TO EVALUATE CAPACITY FOR DECISION MAKING - Current Medication List Current Medications: Active Medications Acetaminophen (Tylenol -) 650 mg PO Q4H PRN PRN Reason: FEVER OR PAIN Last Admin: 09/05/16 22:02 Dose: 650 mg Albuterol Sulfate (Ventolin 0.083% Nebulizer Soln -) 1 amp NEB Q6H PRN PRN Reason: SHORT OF BREATH/WHEEZING Amino Acids (Prosource No Carb Liquid Pkt) 30 ml PO BID [facility] Last Admin: 09/05/16 22:05 Dose: Not Given Ascorbic Acid (Vitamin C -) 500 mg PO DAILY [facility] Last Admin: 09/05/16 09:52 Dose: 500 mg Baclofen (Lioresal -) 10 mg PO DAILY [facility] Last Admin: 09/05/16 09:52 Dose: 10 mg Citalopram Hydrobromide (Celexa -) 20 mg PO DAILY [facility] Last Admin: 09/05/16 09:54 Dose: Not Given Collagenase (Santyl -) 1 applic TP DAILY [facility] Last Admin: 09/05/16 10:09 Dose: 1 applic Diazepam (Valium -) 5 mg PO HS [facility] Last Admin: 09/05/16 22:06 Dose: Not Given Docusate Sodium (Colace -) 100 mg PO DAILY [facility] Last Admin: 09/05/16 09:52 Dose: 100 mg Enoxaparin Sodium (Lovenox -) 40 mg SQ DAILY [facility] Last Admin: 09/05/16 09:55 Dose: 40 mg Ceftriaxone Sodium (Rocephin 2gm Ivpb (Pre-Docked)) 100 mls @ 200 mls/hr IVPB DAILY [facility] Last Admin: 09/05/16 10:06 Dose: 200 mls/hr Metronidazole (Flagyl 500mg Premixed Ivpb -) 100 mls @ 100 mls/hr IVPB Q8H-IV [facility] Last Admin: 09/06/16 01:19 Dose: 100 mls/hr Methylprednisolone Sodium Succinate (Solu-Medrol -) 40 mg IVPB BID [facility] Last Admin: 09/06/16 09:38 Dose: 40 mg Nystatin/Triamcinolone Acetonide (Mycolog Ii Cream -) 1 applic TP BID [facility] Last Admin: 09/05/16 22:04 Dose: Not Given Senna (Senna -) 1 tab PO HS [facility] Last Admin: 09/05/16 22:06 Dose: Not Given Sodium Phosphate (Fleet Adult Rectal Enema -) 133 ml RC PRN PRN Zinc Sulfate (Orazinc -) 220 mg PO DAILY [facility] Last Admin: 09/05/16 09:55 Dose: 220 mg - Objective Vital Signs: Vital Signs Temperature 98.2 F 09/06/16 09:36 Pulse Rate 78 09/06/16 09:36 Respiratory Rate 20 09/06/16 09:36 Blood Pressure 118/75 09/06/16 09:36 O2 Sat by Pulse Oximetry (%) 98 09/05/16 21:00 Constitutional: Yes: No Distress Eyes: Yes: WNL HENT: Yes: WNL Neck: Yes: WNL Cardiovascular: Yes: WNL Respiratory: Yes: WNL Gastrointestinal: Yes: WNL Genitourinary: Yes: Incontinence Musculoskeletal: Yes: Muscle Weakness Edema: No Peripheral Pulses WNL: Yes Integumentary: Yes: WNL Wound/Incision: Yes: Clean/Dry Neurological: Yes: Pre-Existing Deficit ...Motor Strength: LLE, RLE Psychiatric: Yes: Agitated, Other Labs: CBC, BMP 09/03/16 05:35 09/03/16 05:35 INR, PTT INR 1.18 (0.82-1.09) H 08/31/16 16:15 Problem List - Problems (1) COPD exacerbation Code(s): J44.1 - CHRONIC OBSTRUCTIVE PULMONARY DISEASE W (ACUTE) EXACERBATION (2) Hypoxia Code(s): R09.02 - HYPOXEMIA (3) Wound infection Code(s): T14.8 - OTHER INJURY OF UNSPECIFIED BODY REGION L08.9 - LOCAL INFECTION OF THE SKIN AND SUBCUTANEOUS TISSUE, UNSP (4) Pneumonia Code(s): J18.9 - PNEUMONIA, UNSPECIFIED ORGANISM Qualifiers: Pneumonia type: due to unspecified organism Lung location: unspecified part of lung (5) Spinal cord compression due to 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 (6) Psychiatric disorder Code(s): F99 - MENTAL DISORDER, NOT OTHERWISE SPECIFIED (7) Psychoses Code(s): F29 - UNSP PSYCHOSIS NOT DUE TO A SUBSTANCE OR KNOWN PHYSIOL COND (8) Spinal cord neoplasm Code(s): D49.7 - NEOPLM OF UNSP BEHAV OF ENDO GLANDS AND OTH PRT NERVOUS SYS Assessment/Plan RT AND CTS CALLED FOR RADIATION TREATMENT AND LUNG BIOPSY FOR DIAGNOSIS/TREATMENT/WORKUP DR JENNINGS NOTE REVIEWED AND APPRECIATED HE SPENT 50 MINUTES YESTERDAY DISCUSSING THE WORKUP/TREATMENT FOR SPINAL CORD LESION AND METASTATIC ESTROGEN WORKUP. MIRALAX STARTED FOR CONSTIPATION/PATIENT REFUSES SENNA AND DULCOLAX PER NURSE PSYCHIATRY FOR CAPACITY ON DECISION MAKING, IF DEEMED INCOMPETENT WE WILL NEED THE PATIENTS DAUGHTER TO MAKE DECISIONS AND ADVANCED DIRECTIVES.
[2016-09-06] MEDS: CEFTRIAXONE 2G/100 ML IVPB SCH (10:04)
[2016-09-06] MEDS: POLYETHYLENE GLYCOL 3350 119 GM BTL PO SCH (10:35)
--- NOTE | 2016-09-06 16:31 | CONSULT ---
Consult - text type - Consultation Consultation Note: Thoracic Consultation: Called for chest wall biopsy to assess for recurrence and receptor status by Dr. Reed. Briefly, 66F with metastatic breast cancer to spine, now with paraplegia, as well as h/o COPD. Based on imaging may be recurrence. PE suggests non-fixed, mobile, slightly ulcerated nodule, c/w lymph node metastasis. Reasonable to consider for biopsy under MAC tomorrow. Will order T&S and make NPO post midnight. Consent obtained after discussing risks/benefits/and alternatives with patient and her daughter. Please optimize medically for MAC procedure. I spent 40 minutes on this consultation including history, physical, review of images, and with greater than 50% on counseling and coordinating care with patient, daughter, Dr. Reed, and OR.
--- NOTE | 2016-09-06 20:48 | PN ---
Progress Note (short form) - Note Progress Note: Radiation Oncology (full consult to follow) Pt seen and examined, chart and films reviewed. Metastatic breast cancer unfortunately with likely irreversible paraplegia/ incontinence due to longstanding neurologic compromise (>6 months) from cord compression. Not a surgical candidate per Dr. Brand. For biopsy of CW mass to verify hormone status per Dr Reed and Dr Watkins. Palliative RT was offered for minimizing progression of pathologic fracture and pain in T-spine. Benefits (limited), risks (limited), and alternative of supportive care +/- systemic tx discussed with pt and dtr. Understands RT will unlikely reverse her paraplegia. Will proceed as outpatient if she desires tx.
[2016-09-06] MEDS: ACETAMINOPHEN 325 MG TABLET (FP) PO PRN (22:26)
[2016-09-06] MEDS: diazePAM 5 MG TABLET PO SCH (22:35)
[2016-09-06] MEDS: SENNOSIDES 8.6MG TABLET (FP) PO SCH (22:35)
--- NOTE | 2016-09-06 22:42 | PN ---
Progress Note (short form) - Note Progress Note: PAtient seen and exained DEnies any complaints Last Vital Signs Temp Pulse Resp BP Pulse Ox 98.7 F 59 L 20 103/59 96 09/06/16 16:55 09/06/16 16:55 09/06/16 16:55 09/06/16 16:55 09/06/16 09:00 Cor: RSR, No murmurs, No gallops Lungs: Clear to P&A Abd: Soft, Normal bowel sounds, No organomegaly Ext:No significant edema Skin: No rashes, Integument intact LAbs/Meds reviewed A/P 66 y/o patient with metastatic breast ca Bone mets, Chest wall recurrence. Cord compression/paraplegia--Little chance of recovery from plegia PAtient had refused chemo/RT in past per daughter Check biopsy for receptor status ? Zometa ? palliative RT palliative care
[2016-09-07] MEDS: METRONIDAZOLE 500 MG PREMIXED 100 ML IVPB SCH ×3 (01:53→18:00)
[2016-09-07] MEDS ORDERED: SODIUM CHLORIDE 1,000 ML IV SCH (05:00)
[2016-09-07] MEDS: ZINC SULFATE 220 MG CAPSULE (FP) PO SCH (09:23)
[2016-09-07] MEDS: AMINO ACIDS/PROTEIN HYDROLYS 30 ML LIQUID.PKT PO SCH ×2 (09:23→18:00)
[2016-09-07] MEDS: POLYETHYLENE GLYCOL 3350 119 GM BTL PO SCH (09:23)
[2016-09-07] MEDS: CITALOPRAM HYDROBROMIDE 20 MG TABLET (FP) PO SCH (09:25)
[2016-09-07] MEDS: BACLOFEN 10 MG TABLET (FP) PO SCH (09:25)
[2016-09-07] MEDS: DOCUSATE SODIUM 100 MG CAPSULE (FP) PO SCH (09:25)
[2016-09-07] MEDS: ENOXAPARIN NA (PORCINE) 40 MG/0.4 ML DISP.SYRIN SQ SCH (09:25)
[2016-09-07] MEDS: CEFTRIAXONE 2G/100 ML IVPB SCH (09:34)
[2016-09-07] MEDS: COLLAGENASE CLOSTRIDIUM HIST. 30 GRAMS TUBE TP SCH (09:36)
[2016-09-07] MEDS: NYSTATIN/TRIAMCINOLONE TOPICAL CREAM 15 GM TUBE TP SCH ×2 (09:37→22:14)
[2016-09-07] MEDS: ASCORBIC ACID 500 MG TABLET (FP) PO SCH (09:37)
--- NOTE | 2016-09-07 09:37 | PN ---
Progress Note, Physician Chief Complaint: SCHEDULED FOR BIOPSY TODAY AT 1PM PATIENT AGITATED, DID NOT TAKE HER STOOL SOFTENERS - Current Medication List Current Medications: Active Medications Acetaminophen (Tylenol -) 650 mg PO Q4H PRN PRN Reason: FEVER OR PAIN Last Admin: 09/06/16 22:26 Dose: 650 mg Albuterol Sulfate (Ventolin 0.083% Nebulizer Soln -) 1 amp NEB Q6H PRN PRN Reason: SHORT OF BREATH/WHEEZING Amino Acids (Prosource No Carb Liquid Pkt) 30 ml PO BID [facility] Last Admin: 09/07/16 09:23 Dose: Not Given Ascorbic Acid (Vitamin C -) 500 mg PO DAILY [facility] Last Admin: 09/06/16 09:45 Dose: 500 mg Baclofen (Lioresal -) 10 mg PO DAILY [facility] Last Admin: 09/07/16 09:25 Dose: Not Given Citalopram Hydrobromide (Celexa -) 20 mg PO DAILY [facility] Last Admin: 09/07/16 09:25 Dose: Not Given Collagenase (Santyl -) 1 applic TP DAILY [facility] Last Admin: 09/06/16 09:46 Dose: 1 applic Diazepam (Valium -) 5 mg PO HS [facility] Last Admin: 09/06/16 22:35 Dose: Not Given Docusate Sodium (Colace -) 100 mg PO DAILY [facility] Last Admin: 09/07/16 09:25 Dose: Not Given Enoxaparin Sodium (Lovenox -) 40 mg SQ DAILY [facility] Last Admin: 09/07/16 09:25 Dose: Not Given Ceftriaxone Sodium (Rocephin 2gm Ivpb (Pre-Docked)) 100 mls @ 200 mls/hr IVPB DAILY [facility] Last Admin: 09/06/16 10:04 Dose: 200 mls/hr Metronidazole (Flagyl 500mg Premixed Ivpb -) 100 mls @ 100 mls/hr IVPB Q8H-IV [facility] Last Admin: 09/07/16 01:53 Dose: 100 mls/hr Sodium Chloride (Normal Saline -) 1,000 mls @ 75 mls/hr IV ASDIR [facility] Stop: 09/07/16 15:00 Last Admin: 09/07/16 05:05 Dose: 75 mls/hr Methylprednisolone Sodium Succinate (Solu-Medrol -) 40 mg IVPB BID [facility] Last Admin: 09/06/16 22:26 Dose: 40 mg Nystatin/Triamcinolone Acetonide (Mycolog Ii Cream -) 1 applic TP BID [facility] Last Admin: 09/06/16 22:33 Dose: 1 applic Polyethylene Glycol (Miralax (For Daily Use) -) 17 gm PO DAILY [facility] Last Admin: 09/07/16 09:23 Dose: Not Given Senna (Senna -) 1 tab PO HS [facility] Last Admin: 09/06/16 22:35 Dose: Not Given Sodium Phosphate (Fleet Adult Rectal Enema -) 133 ml RC PRN PRN Zinc Sulfate (Orazinc -) 220 mg PO DAILY [facility] Last Admin: 09/07/16 09:23 Dose: Not Given - Objective Vital Signs: Vital Signs Temperature 97.8 F 09/07/16 06:00 Pulse Rate 57 L 09/07/16 06:00 Respiratory Rate 18 09/07/16 06:00 Blood Pressure 85/51 09/07/16 06:00 O2 Sat by Pulse Oximetry (%) 96 09/06/16 21:00 Constitutional: Yes: Mild Distress Eyes: Yes: WNL HENT: Yes: WNL Neck: Yes: WNL Cardiovascular: Yes: WNL Respiratory: Yes: WNL Gastrointestinal: Yes: WNL Genitourinary: Yes: Incontinence Musculoskeletal: Yes: Muscle Weakness Edema: No Peripheral Pulses WNL: Yes Integumentary: Yes: WNL Wound/Incision: Yes: Dressing Dry and Intact Neurological: Yes: WNL ...Motor Strength: LLE, RLE Psychiatric: Yes: Agitated Labs: CBC, BMP 09/03/16 05:35 09/03/16 05:35 INR, PTT INR 1.18 (0.82-1.09) H 08/31/16 16:15 Problem List - Problems (1) COPD exacerbation Code(s): J44.1 - CHRONIC OBSTRUCTIVE PULMONARY DISEASE W (ACUTE) EXACERBATION (2) Hypoxia Code(s): R09.02 - HYPOXEMIA (3) Wound infection Code(s): T14.8 - OTHER INJURY OF UNSPECIFIED BODY REGION L08.9 - LOCAL INFECTION OF THE SKIN AND SUBCUTANEOUS TISSUE, UNSP (4) Pneumonia Code(s): J18.9 - PNEUMONIA, UNSPECIFIED ORGANISM Qualifiers: Pneumonia type: due to unspecified organism Lung location: unspecified part of lung (5) Spinal cord compression due to 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 (6) Psychiatric disorder Code(s): F99 - MENTAL DISORDER, NOT OTHERWISE SPECIFIED (7) Psychoses Code(s): F29 - UNSP PSYCHOSIS NOT DUE TO A SUBSTANCE OR KNOWN PHYSIOL COND (8) Spinal cord neoplasm Code(s): D49.7 - NEOPLM OF UNSP BEHAV OF ENDO GLANDS AND OTH PRT NERVOUS SYS Assessment/Plan LUNG BIOPSY TODAY ONCOLOGY F/U ABX CONTINUED CHANGE TO PO DC PLANNING AFTER ONCOLOGY WORKUP
[2016-09-07] MEDS: methylPREDNISolone NA SUCC 40 MG/1 ML VIAL IVPB SCH (09:46)
--- NOTE | 2016-09-07 10:46 | PN ---
Progress Note (short form) - Note Progress Note: PULMONARY Cough improving. No fevers or chills. Denies shortness of breath. For chest wall biopsy today. Last Vital Signs Temp Pulse Resp BP Pulse Ox 97.8 F 57 L 18 85/51 96 09/07/16 06:00 09/07/16 06:00 09/07/16 06:00 09/07/16 06:00 09/06/16 21:00 Gen: NAD at rest Heart: RRR Lung: decreased breath sounds at the bases, no wheezes appreciated Abd: soft, nontender Ext: no edema CBC, BMP 09/03/16 05:35 09/03/16 05:35 Active Medications Acetaminophen (Tylenol -) 650 mg PO Q4H PRN PRN Reason: FEVER OR PAIN Last Admin: 09/06/16 22:26 Dose: 650 mg Albuterol Sulfate (Ventolin 0.083% Nebulizer Soln -) 1 amp NEB Q6H PRN PRN Reason: SHORT OF BREATH/WHEEZING Amino Acids (Prosource No Carb Liquid Pkt) 30 ml PO BID [facility] Last Admin: 09/07/16 09:23 Dose: Not Given Ascorbic Acid (Vitamin C -) 500 mg PO DAILY [facility] Last Admin: 09/07/16 09:37 Dose: Not Given Baclofen (Lioresal -) 10 mg PO DAILY [facility] Last Admin: 09/07/16 09:25 Dose: Not Given Citalopram Hydrobromide (Celexa -) 20 mg PO DAILY [facility] Last Admin: 09/07/16 09:25 Dose: Not Given Collagenase (Santyl -) 1 applic TP DAILY [facility] Last Admin: 09/07/16 09:36 Dose: 1 applic Diazepam (Valium -) 5 mg PO HS [facility] Last Admin: 09/06/16 22:35 Dose: Not Given Docusate Sodium (Colace -) 100 mg PO DAILY [facility] Last Admin: 09/07/16 09:25 Dose: Not Given Enoxaparin Sodium (Lovenox -) 40 mg SQ DAILY [facility] Last Admin: 09/07/16 09:25 Dose: Not Given Ceftriaxone Sodium (Rocephin 2gm Ivpb (Pre-Docked)) 100 mls @ 200 mls/hr IVPB DAILY [facility] Last Admin: 09/07/16 09:34 Dose: 200 mls/hr Metronidazole (Flagyl 500mg Premixed Ivpb -) 100 mls @ 100 mls/hr IVPB Q8H-IV [facility] Last Admin: 09/07/16 01:53 Dose: 100 mls/hr Sodium Chloride (Normal Saline -) 1,000 mls @ 75 mls/hr IV ASDIR [facility] Stop: 09/07/16 15:00 Last Admin: 09/07/16 05:05 Dose: 75 mls/hr Methylprednisolone Sodium Succinate (Solu-Medrol -) 40 mg IVPB BID [facility] Last Admin: 09/07/16 09:46 Dose: 40 mg Nystatin/Triamcinolone Acetonide (Mycolog Ii Cream -) 1 applic TP BID [facility] Last Admin: 09/07/16 09:37 Dose: 1 applic Polyethylene Glycol (Miralax (For Daily Use) -) 17 gm PO DAILY [facility] Last Admin: 09/07/16 09:23 Dose: Not Given Senna (Senna -) 1 tab PO HS [facility] Last Admin: 09/06/16 22:35 Dose: Not Given Sodium Phosphate (Fleet Adult Rectal Enema -) 133 ml RC PRN PRN Zinc Sulfate (Orazinc -) 220 mg PO DAILY [facility] Last Admin: 09/07/16 09:23 Dose: Not Given A/P Pneumonia Acute COPD Exacerbation improving Metastatic Breast Ca with spinal mets Lower Extremity Paralysis - complete antibiotics - can change steroids to PO - inhaled bronchodilators - O2 to keep SpO2 >90% - DVT prophylaxis
--- NOTE | 2016-09-07 11:44 | OP ---
- Note: Patient Name: Afua Leyva MR#: [id number] Procedure Date: 09/07/16 Preoperative Diagnosis: Chest wall lesion Postoperative Diagnosis: same. Procedure: 1. Excision of chest wall lesion (subcutaneous). Indication: Recurrent breast cancer; Surgeon(s): Eligio Watkins MD Cosurgeon: greg Corrugator Surgeon: N/A. Anesthesia: Local with MAC; Findings: ulcer on skin with associated 3cm nodule: sent to Pathology. Specimens Sent: chest wall lesion Complications: none Drains / Tubes / Catheters: none Hardware / Implants: na Blood / Fluid Losses: 5cc Post-Operative Condition: Stable in transfer to PACU Indications: This patient is a 66 year-old female with a history of recurrent breast cancer s/p left mastectomy. She was referred from Dr. Marrero and Dr. Reed for biopsy of a chest wall mass to help direct hormonal therapy. She and her daughter were explained the risks, benefits, and alternatives of the chest wall nodule excision, agreed, and understood. Details of Procedure: The patient was taken into the operating room and placed supine on the table. She was monitored with pulse oximetry and blood pressure monitoring. She was prepared and draped in standard fashion. We then injected with local and made an elliptical incision to include the ulcerated skin and the nodule. We then removed the lesion and sent it to frozen section. We irrigated and then closed with absorbable sutures and philomena. Sterile dressings were placed. She was transferred to the recovery area in hemodynamically stable condition.
[2016-09-07] MEDS ORDERED: LIDOCAINE 1%/EPI 1:100000 (50 ML MULTI DOSE VIAL) ONE (14:43)
[2016-09-07] MEDS ORDERED: ceFAZolin SODIUM 1 GM VIAL IVPB ONE ×2 (14:52→15:00)
[2016-09-07] MEDS ORDERED: LIDOCAINE 1%/EPI 1:100000 (50 ML MULTI DOSE VIAL) INF ONE (15:08)
--- NOTE | 2016-09-07 16:10 | OP ---
Operative Note - Note: Operative Date: 09/07/16 Pre-Operative Diagnosis: Left chest wall mass Operation: Excision of left chest wall mass Findings: chest wall mass at site of prior mastectomy Post-Operative Diagnosis: Same as Pre-op Surgeon: Eligio Watkins Anesthesiologist/TECHNICAL SUPPORT REPRESENTATIVE: Felton Lo Anesthesia: MAC Specimens Removed: left chest wall mass Estimated Blood Loss (mls): 5
[2016-09-07] MEDS ORDERED: SODIUM PHOSPHATE/NA BIPHOS 133 ML ENEMA RC PRN (16:27)
[2016-09-07] MEDS ORDERED: ALBUTEROL SO4 0.083% IH SOL 2.5 MG/3 ML VIAL.NEB. NEB PRN (16:27)
[2016-09-07] MEDS: ACETAMINOPHEN 325 MG TABLET (FP) PO PRN (21:49)
[2016-09-07] MEDS: SENNOSIDES 8.6MG TABLET (FP) PO SCH (21:50)
[2016-09-07] MEDS: diazePAM 5 MG TABLET PO SCH (22:40)
[2016-09-08] MEDS: METRONIDAZOLE 500 MG PREMIXED 100 ML IVPB SCH ×2 (01:41→10:53)
[2016-09-08] MEDS: ACETAMINOPHEN 325 MG TABLET (FP) PO PRN ×2 (04:45→22:48)
[2016-09-08 07:42] LABS: MCH 30.3 pg (25.7-33.7); MCHC 32.8 g/dl (32.0-36.0); MEAN CELL VOLUME 92.4 fl (80-96); MEAN PLT VOLUME 6.7 fl (7.5-11.1); PLATELET COUNT 301 K/MM3 (134-434); RDW 13.8 % (11.6-15.6); WHITE BLOOD COUNT 11.8 K/mm3 (4.0-10.0)
[2016-09-08] MEDS: AMINO ACIDS/PROTEIN HYDROLYS 30 ML LIQUID.PKT PO SCH ×2 (08:00→17:56)
[2016-09-08 08:09] LABS: ALBUMIN 2.2 g/dl (3.4-5.0); ANION GAP 6 (8-16); CALCIUM 8.4 mg/dL (8.5-10.1); CO2 30 mmol/L (21-32); GLUCOSE,RANDOM 81 mg/dL (74-106); SGOT/AST 14 U/L (15-37); SGPT/ALT 23 U/L (12-78)
[2016-09-08 08:10] LABS: ALK PHOS 89 U/L (45-117); BILIRUBIN,TOTAL 0.2 mg/dL (0.2-1.0); COCKROFT - GAULT 102.4675; CREATININE 0.4 mg/dL (0.55-1.02); TOT PROT 5.1 g/dl (6.4-8.2)
[2016-09-08] MEDS ORDERED: CEFTRIAXONE 100 ML IVPB SCH (10:00)
[2016-09-08] MEDS ORDERED: predniSONE 20 MG TABLET (UD) PO SCH ×2 (10:00)
--- NOTE | 2016-09-08 10:14 | PN ---
Progress Note (short form) - Note Progress Note: PULMONARY CHART REVIEWED DESTRUCTIVE LESION NOTED T3/4/5 H/O BREAST CA S/P MASTECTOMY CHEST WALL BX VSS/AFEBRILE ANICTERIC DIMINISHED BREAST SOUNDS BASES S1S2 BS+ EARLY CONTRACTION B/L UNABLE TO MOVE FROM KNEES DOWN B/L TOES UP GOING B/L MEDS/LABS/IMAGING/NOTES REVIEWED IMP ACUTE HYPOXEMIC RESPIRATORY FAILURE RESOLVED COPD EXACERBATION PNEUMONIA DESTRUCTIVE T4/5/6 LESIONS NOTED/SPINAL CORD COMPRESSION LIKELY METASTATIC BREAST CA PLAN ANTIBIOTICS PER ID INHALED BRONCHODILATORS O2 TO MAINTAIN O2 SAT 90% TAPER PREDNISONE ONCOLOGY INPUT APPRECIATED CHEST WALL BX PATH PENDING R CRYSTAL CAMERON
[2016-09-08] MEDS: ZINC SULFATE 220 MG CAPSULE (FP) PO SCH (10:54)
[2016-09-08] MEDS: DOCUSATE SODIUM 100 MG CAPSULE (FP) PO SCH (10:54)
[2016-09-08] MEDS: ASCORBIC ACID 500 MG TABLET (FP) PO SCH (10:55)
[2016-09-08] MEDS: COLLAGENASE CLOSTRIDIUM HIST. 30 GRAMS TUBE TP SCH (10:55)
[2016-09-08] MEDS: BACLOFEN 10 MG TABLET (FP) PO SCH (10:56)
[2016-09-08] MEDS: NYSTATIN/TRIAMCINOLONE TOPICAL CREAM 15 GM TUBE TP SCH ×2 (10:56→22:43)
[2016-09-08] MEDS: ENOXAPARIN NA (PORCINE) 40 MG/0.4 ML DISP.SYRIN SQ SCH (10:56)
[2016-09-08] MEDS: CITALOPRAM HYDROBROMIDE 20 MG TABLET (FP) PO SCH ×2 (10:58→11:32)
[2016-09-08] MEDS: predniSONE 20 MG TABLET (UD) PO SCH (11:30)
--- NOTE | 2016-09-08 13:26 | PN ---
Progress Note, Physician Chief Complaint: AWAKE COMFORTABLE CHEERFULT JANICE + APPETITE - Current Medication List Current Medications: Active Medications Acetaminophen (Tylenol -) 650 mg PO Q4H PRN PRN Reason: FEVER OR PAIN Last Admin: 09/08/16 04:45 Dose: 650 mg Albuterol Sulfate (Ventolin 0.083% Nebulizer Soln -) 1 amp NEB Q6H PRN PRN Reason: SHORT OF BREATH/WHEEZING Amino Acids (Prosource No Carb Liquid Pkt) [facility] Last Admin: 09/08/16 08:00 Dose: 30 ml Ascorbic Acid (Vitamin C -) 500 mg PO DAILY [facility] Last Admin: 09/08/16 10:55 Dose: 500 mg Baclofen (Lioresal -) 10 mg PO DAILY [facility] Last Admin: 09/08/16 10:56 Dose: 10 mg Citalopram Hydrobromide (Celexa -) 20 mg PO DAILY [facility] Last Admin: 09/08/16 11:32 Dose: Not Given Collagenase (Santyl -) 1 applic TP DAILY [facility] Last Admin: 09/08/16 10:55 Dose: 1 applic Diazepam (Valium -) 5 mg PO HS [facility] Last Admin: 09/07/16 22:40 Dose: Not Given Docusate Sodium (Colace -) 100 mg PO DAILY [facility] Last Admin: 09/08/16 10:54 Dose: 100 mg Enoxaparin Sodium (Lovenox -) 40 mg SQ DAILY [facility] Last Admin: 09/08/16 10:56 Dose: 40 mg Ceftriaxone Sodium (Rocephin 2gm Ivpb (Pre-Docked)) 100 mls @ 200 mls/hr IVPB DAILY [facility] Last Admin: 09/08/16 10:53 Dose: 200 mls/hr Metronidazole (Flagyl 500mg Premixed Ivpb -) 100 mls @ 100 mls/hr IVPB Q8H-IV [facility] Last Admin: 09/08/16 10:53 Dose: 100 mls/hr Nystatin/Triamcinolone Acetonide (Mycolog Ii Cream -) 1 applic TP BID [facility] Last Admin: 09/08/16 10:56 Dose: 1 applic Prednisone (Deltasone -) 20 mg PO DAILY [facility] Last Admin: 09/08/16 11:30 Dose: 20 mg Senna (Senna -) 1 tab PO HS [facility] Last Admin: 09/07/16 21:50 Dose: Not Given Sodium Phosphate (Fleet Adult Rectal Enema -) 133 ml RC PRN PRN Zinc Sulfate (Orazinc -) 220 mg PO DAILY [facility] Last Admin: 09/08/16 10:54 Dose: 220 mg - Objective Vital Signs: Vital Signs Temperature 98.3 F 09/08/16 06:00 Pulse Rate 48 L 09/08/16 06:00 Respiratory Rate 18 09/08/16 06:00 Blood Pressure 89/63 09/08/16 06:00 O2 Sat by Pulse Oximetry (%) 96 09/07/16 21:00 Constitutional: Yes: No Distress Eyes: Yes: WNL HENT: Yes: WNL Neck: Yes: WNL Cardiovascular: Yes: WNL Respiratory: Yes: CTA Bilaterally, On Nasal O2 Gastrointestinal: Yes: WNL Genitourinary: Yes: Incontinence Musculoskeletal: Yes: Muscle Weakness Extremities: Yes: Other Edema: No Integumentary: Yes: Skin Tear, Venous Stasis Changes Wound/Incision: Yes: Dressing Dry and Intact Neurological: Yes: Pre-Existing Deficit ...Motor Strength: LLE, RLE Psychiatric: Yes: Other Labs: CBC, BMP 09/08/16 06:30 09/08/16 06:30 INR, PTT INR 1.18 (0.82-1.09) H 08/31/16 16:15 Problem List - Problems (1) COPD exacerbation Code(s): J44.1 - CHRONIC OBSTRUCTIVE PULMONARY DISEASE W (ACUTE) EXACERBATION (2) Hypoxia Code(s): R09.02 - HYPOXEMIA (3) Wound infection Code(s): T14.8 - OTHER INJURY OF UNSPECIFIED BODY REGION L08.9 - LOCAL INFECTION OF THE SKIN AND SUBCUTANEOUS TISSUE, UNSP (4) Pneumonia Code(s): J18.9 - PNEUMONIA, UNSPECIFIED ORGANISM Qualifiers: Pneumonia type: due to unspecified organism Lung location: unspecified part of lung (5) Spinal cord compression due to 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 (6) Psychiatric disorder Code(s): F99 - MENTAL DISORDER, NOT OTHERWISE SPECIFIED (7) Psychoses Code(s): F29 - UNSP PSYCHOSIS NOT DUE TO A SUBSTANCE OR KNOWN PHYSIOL COND (8) Spinal cord neoplasm Code(s): D49.7 - NEOPLM OF UNSP BEHAV OF ENDO GLANDS AND OTH PRT NERVOUS SYS Assessment/Plan AWAIT BIOPSY RESULT HISTORY BREAST CA LIKELY METASTATIC DISEASE TO BONE ONCOLOGY/RT/CHEMO ALL OPTIONS DISCUSSED WITH THE FAMILY, DR JENNINGS ALSO DISCUSSED WITH FAMILY.
--- NOTE | 2016-09-08 13:39 | PN ---
Progress Note, Physician History of Present Illness: S/P biopsy of L chest wall mass No c/o pain No cough/ sputum No dyspnea Afebrile BC (-) - Current Medication List Current Medications: Active Medications Acetaminophen (Tylenol -) 650 mg PO Q4H PRN PRN Reason: FEVER OR PAIN Last Admin: 09/08/16 04:45 Dose: 650 mg Albuterol Sulfate (Ventolin 0.083% Nebulizer Soln -) 1 amp NEB Q6H PRN PRN Reason: SHORT OF BREATH/WHEEZING Amino Acids (Prosource No Carb Liquid Pkt) 30 ml PO BIDWM [facility] Last Admin: 09/08/16 08:00 Dose: 30 ml Ascorbic Acid (Vitamin C -) 500 mg PO DAILY [facility] Last Admin: 09/08/16 10:55 Dose: 500 mg Baclofen (Lioresal -) 10 mg PO DAILY [facility] Last Admin: 09/08/16 10:56 Dose: 10 mg Citalopram Hydrobromide (Celexa -) 20 mg PO DAILY [facility] Last Admin: 09/08/16 11:32 Dose: Not Given Collagenase (Santyl -) 1 applic TP DAILY [facility] Last Admin: 09/08/16 10:55 Dose: 1 applic Diazepam (Valium -) 5 mg PO HS [facility] Last Admin: 09/07/16 22:40 Dose: Not Given Docusate Sodium (Colace -) 100 mg PO DAILY [facility] Last Admin: 09/08/16 10:54 Dose: 100 mg Enoxaparin Sodium (Lovenox -) 40 mg SQ DAILY [facility] Last Admin: 09/08/16 10:56 Dose: 40 mg Ceftriaxone Sodium (Rocephin 2gm Ivpb (Pre-Docked)) 100 mls @ 200 mls/hr IVPB DAILY [facility] Last Admin: 09/08/16 10:53 Dose: 200 mls/hr Metronidazole (Flagyl 500mg Premixed Ivpb -) 100 mls @ 100 mls/hr IVPB Q8H-IV [facility] Last Admin: 09/08/16 10:53 Dose: 100 mls/hr Nystatin/Triamcinolone Acetonide (Mycolog Ii Cream -) 1 applic TP BID [facility] Last Admin: 09/08/16 10:56 Dose: 1 applic Prednisone (Deltasone -) 20 mg PO DAILY [facility] Last Admin: 09/08/16 11:30 Dose: 20 mg Senna (Senna -) 1 tab PO HS [facility] Last Admin: 09/07/16 21:50 Dose: Not Given Sodium Phosphate (Fleet Adult Rectal Enema -) 133 ml RC PRN PRN Zinc Sulfate (Orazinc -) 220 mg PO DAILY [facility] Last Admin: 09/08/16 10:54 Dose: 220 mg - Objective Vital Signs: Vital Signs Temperature 98.3 F 09/08/16 06:00 Pulse Rate 48 L 09/08/16 06:00 Respiratory Rate 18 09/08/16 06:00 Blood Pressure 89/63 09/08/16 06:00 O2 Sat by Pulse Oximetry (%) 96 09/07/16 21:00 Constitutional: Yes: No Distress, Cachectic Eyes: Yes: Conjunctiva Clear Cardiovascular: Yes: Regular Rate and Rhythm, S1, S2 Respiratory: Yes: CTA Bilaterally Gastrointestinal: Yes: Normal Bowel Sounds, Soft. No: Tenderness Breast(s): Yes: Other (post op dressing in place L breast) Neurological: Yes: Other (+ paraplegia) Labs: CBC, BMP 09/08/16 06:30 09/08/16 06:30 INR, PTT INR 1.18 (0.82-1.09) H 08/31/16 16:15 Assessment/Plan Bibasilar infiltrates Exacerbation COPD Metastatic breast ca UTI Decubitus ulcers Paraplegia Day 7 IV antibiotics Substitute po ceftin 500mg bid x3d
--- NOTE | 2016-09-08 14:00 | CON.PSY ---
Psychiatry Consult Chief Complaint: I dont want to take Celexa because I dont need it. I was angry. I am not depressed. Symptoms: reports: Irritability - Previous Psychiatric Treatment Outpatient: None Inpatient: None - Previous Substance Abuse Treatment Outpatient: None Inpatient: None - Current Medications Current Medications: Active Medications Acetaminophen (Tylenol -) 650 mg PO Q4H PRN PRN Reason: FEVER OR PAIN Last Admin: 09/08/16 04:45 Dose: 650 mg Albuterol Sulfate (Ventolin 0.083% Nebulizer Soln -) 1 amp NEB Q6H PRN PRN Reason: SHORT OF BREATH/WHEEZING Amino Acids (Prosource No Carb Liquid Pkt) 30 ml PO BIDWM [facility] Last Admin: 09/08/16 08:00 Dose: 30 ml Ascorbic Acid (Vitamin C -) 500 mg PO DAILY [facility] Last Admin: 09/08/16 10:55 Dose: 500 mg Baclofen (Lioresal -) 10 mg PO DAILY [facility] Last Admin: 09/08/16 10:56 Dose: 10 mg Cefuroxime Axetil (Ceftin -) 500 mg PO BID [facility] Citalopram Hydrobromide (Celexa -) 20 mg PO DAILY [facility] Last Admin: 09/08/16 11:32 Dose: Not Given Collagenase (Santyl -) 1 applic TP DAILY [facility] Last Admin: 09/08/16 10:55 Dose: 1 applic Diazepam (Valium -) 5 mg PO HS [facility] Last Admin: 09/07/16 22:40 Dose: Not Given Docusate Sodium (Colace -) 100 mg PO DAILY [facility] Last Admin: 09/08/16 10:54 Dose: 100 mg Enoxaparin Sodium (Lovenox -) 40 mg SQ DAILY [facility] Last Admin: 09/08/16 10:56 Dose: 40 mg Nystatin/Triamcinolone Acetonide (Mycolog Ii Cream -) 1 applic TP BID [facility] Last Admin: 09/08/16 10:56 Dose: 1 applic Prednisone (Deltasone -) 20 mg PO DAILY [facility] Last Admin: 09/08/16 11:30 Dose: 20 mg Senna (Senna -) 1 tab PO HS [facility] Last Admin: 09/07/16 21:50 Dose: Not Given Sodium Phosphate (Fleet Adult Rectal Enema -) 133 ml RC PRN PRN Zinc Sulfate (Orazinc -) 220 mg PO DAILY [facility] Last Admin: 09/08/16 10:54 Dose: 220 mg - Allergies Allergies: Allergies Allergy/AdvReac Type Severity Reaction Status Date / Time epinephrine Allergy Verified 08/31/16 15:42 procaine Allergy Verified 08/31/16 15:42 sulfamethoxazole Allergy Verified 08/31/16 15:42 trimethoprim Allergy Verified 08/31/16 15:42 - Current Living Status Usual Living Arrangement: [facility] - Current Mental Status Evaluation Appearance: Well Groomed Attitude: Cooperative - Affect Affect: Constrictive Appropriateness: Appropriate to Content - Mood Mood: Irritable - Speech/Language Expressive: Coherent - Psychomotor Activity Psychomotor Activity: Slowed - Thought Process Thought Process: Intact - Thought Content Hallucinations: Absent Delusions: Absent - Self Perception Self Perception: No Impairment - Cognition Attention: Alert Orientation: Time Memory, Immediate Recall: Intact Memory, Remote: Intact - Concentration Serial Sevens Intact: No Simple Calculations Intact: No - Abstraction Proverb Interpretation: Intact Judgement: Minimally Impaired - Insight Insight: Intact - Impulse Control Impulse Control: Minimally Impaired - Suicidal Ideation Suicidal Ideation: No - Homicidal Ideation Homicidal Ideation: No Assessment/Plan continue with celexa. Patient is not suicidal at this time.
--- NOTE | 2016-09-08 14:11 | CONS ---
DATE OF CONSULTATION: 09/07/2016 REFERRING PHYSICIAN: Rajesh Marrero MD REASON FOR CONSULTATION: Metastatic breast cancer. HISTORY OF PRESENT ILLNESS: The patient is a 66-year-old [facility] resident with a history of metastatic breast cancer, treated with hormonal therapy up to this point. She has refused chemotherapy and radiation therapy. She required a left mastectomy for progressive local disease about 1 year ago. Most recently, she has been maintained on Faslodex. She began having lower extremity weakness in January 2016, which improved. By March, she was barely able to walk. She has been nonambulatory for at least 6 months. She resides in the [facility] and has urinary incontinence and difficulty passing bowel movements. She has mild upper back pain, controlled with [id number] analgesics. Denies arm weakness or numbness. She had a CT of the chest, which showed bilateral pulmonary infiltrates, pathologic vertebral fractures at T3, T4, and T5, associated with canal compromise and presumed spinal cord compression. There is a large, destructive mass, involving those levels. There is a sclerotic lesion at T12. She informs me that radiation therapy was considered in the past, but has not been pursued. She was seen by Dr. Reed, who has recommended a biopsy of the chest wall mass to determine the hormonal status at this time. She was seen by Dr. Watkins, who is scheduling biopsy. There is no history of radiation therapy, collagen vascular disease, lupus, or scleroderma. PAST MEDICAL HISTORY: Anxiety, congestive heart failure, COPD, peripheral neuropathy, hearing loss, multiple pressure ulcers secondary to paraplegia and immobility. PAST SURGICAL HISTORY: Left mastectomy, cholecystectomy, tonsillectomy, atrioseptal defect repair. ALLERGIES: EPINEPHRINE, PROCAINE, SULFAMETHOXAZOLE, TRIMETHOPRIM. CURRENT MEDICATIONS: Solu-Medrol, Tylenol p.r.n., ceftriaxone, Flagyl, Lovenox subcutaneous, Celexa, valium, albuterol nebulizer p.r.n., Colace, MiraLAX, Senokot. SOCIAL HISTORY: She is an active smoker. There is no alcohol use. She is a [facility] resident. She has a daughter who is present. FAMILY HISTORY: Denies. REVIEW OF SYSTEMS: As noted above. PHYSICAL EXAMINATION: General: female, appearing her chronological age, in no acute distress. She is hard of hearing. Vital signs: Temperature 98.7, blood pressure 103/59, pulse 59, respiratory rate 20, SAO2 96% on 2 L nasal cannula. HEENT: Normocephalic and atraumatic. Moist mucous membranes. Clear oral cavity. Neck: No mass. Chest: Decreased breath sounds bilaterally, status post left mastectomy. There is a small fungating mass in the upper chest, below the clavicle with no satellite lesions. There is no axillary adenopathy. Right breast without mass or skin change. Abdomen: Benign. Extremities: No edema. Musculoskeletal: No paraspinal tenderness. Neurologic: Alert and oriented x3. Cranial nerves II-XII are intact. Sensation to light touch is diminished or absent below the umbilicus. Motor is 5/5 in the bilateral upper extremities, 0/5 in the bilateral lower extremities, proximal and distal. Toes are upgoing. Gait: Unable to test. RADIOLOGIC DATA: CT of the chest September 01, 2016: As noted above. LABORATORY DATA: WBC 10.1, hemoglobin 12.6, platelet count of 386,000. Electrolytes within normal limits. BUN 18, creatinine 0.4, calcium 8.8, liver function tests within normal limits. Albumin 2.2. CEA 8.0, CA 27-29 is 55. IMPRESSION: A 66-year-old woman with a history of metastatic breast cancer on endocrine therapy, status post total mastectomy with a chest wall mass and skeletal metastasis, most prominent in the thoracic spine where there is a large, destructive mass associated with T3 T4 T5 fractures, canal compromise, and cord compression. She has resulting paraplegia for these 6 months, associated with loss of bowel and bladder function. Her pain is moderate and well-controlled with analgesics. Unfortunately, her paraplegia and incontinence are most likely irreversible at this point due to the longstanding neurologic compromise from cord compression. She is not a surgical candidate by Dr. Brand's evaluation. She is scheduled for biopsy of the chest wall mass to verify the hormonal status to assist in systemic treatment and recommendations. Palliative radiation therapy will unlikely reverse her neurologic function but can be considered to minimize further progression of the pathologic fractures that could worsen her pain and adversely affect her quality of life. These benefits as well as side effects including skin reaction, fatigue, and myelosuppression were discussed as were the alternative options of supportive care with or without systemic/hormonal treatment. Their questions were answered. She will further consider the option of radiation therapy and could proceed once outpatient when ready. There is certainly no urgency to starting radiation at this time as her debility is chronic and likely irreversible. Thank you for asking me to see this patient. TERRA WARNER M.D. [id number] MTDD
[2016-09-08] MEDS ORDERED: PT OWN MED DRAWER 7, Y5N ONE ×2 (18:14→22:13)
[2016-09-08] MEDS: diazePAM 5 MG TABLET PO SCH (22:42)
[2016-09-08] MEDS: CEFUROXIME AXETIL 500 MG TABLET PO SCH (22:42)
[2016-09-08] MEDS: SENNOSIDES 8.6MG TABLET (FP) PO SCH (22:42)
[2016-09-09] MEDS ORDERED: BISACODYL 5 MG TABLET.DR (FP) PO PRN (09:23)
[2016-09-09] MEDS ORDERED: MAGNESIUM HYDROX 2400MG/30ML ORAL SUSPENSION 30 ML CUP PO PRN (09:23)
--- NOTE | 2016-09-09 09:23 | PN ---
Progress Note, Physician Chief Complaint: AWAKE ALERT OFF OXYGEN SUPPORT FEELING BETTER - Current Medication List Current Medications: Active Medications Acetaminophen (Tylenol -) 650 mg PO Q4H PRN PRN Reason: FEVER OR PAIN Last Admin: 09/08/16 22:48 Dose: 650 mg Albuterol Sulfate (Ventolin 0.083% Nebulizer Soln -) 1 amp NEB Q6H PRN PRN Reason: SHORT OF BREATH/WHEEZING Amino Acids (Prosource No Carb Liquid Pkt) 30 ml PO BIDWM [facility] Last Admin: 09/08/16 17:56 Dose: 30 ml Ascorbic Acid (Vitamin C -) 500 mg PO DAILY [facility] Last Admin: 09/08/16 10:55 Dose: 500 mg Baclofen (Lioresal -) 10 mg PO DAILY [facility] Last Admin: 09/08/16 10:56 Dose: 10 mg Cefuroxime Axetil (Ceftin -) 500 mg PO BID [facility] Last Admin: 09/08/16 22:42 Dose: 500 mg Citalopram Hydrobromide (Celexa -) 20 mg PO DAILY [facility] Last Admin: 09/08/16 11:32 Dose: Not Given Collagenase (Santyl -) 1 applic TP DAILY [facility] Last Admin: 09/08/16 10:55 Dose: 1 applic Diazepam (Valium -) 5 mg PO HS [facility] Last Admin: 09/08/16 22:42 Dose: Not Given Docusate Sodium (Colace -) 100 mg PO DAILY [facility] Last Admin: 09/08/16 10:54 Dose: 100 mg Enoxaparin Sodium (Lovenox -) 40 mg SQ DAILY [facility] Last Admin: 09/08/16 10:56 Dose: 40 mg Nystatin/Triamcinolone Acetonide (Mycolog Ii Cream -) 1 applic TP BID [facility] Last Admin: 09/08/16 22:43 Dose: 1 applic Prednisone (Deltasone -) 20 mg PO DAILY [facility] Last Admin: 09/08/16 11:30 Dose: 20 mg Senna (Senna -) 1 tab PO HS [facility] Last Admin: 09/08/16 22:42 Dose: 1 tab Sodium Phosphate (Fleet Adult Rectal Enema -) 133 ml RC PRN PRN Zinc Sulfate (Orazinc -) 220 mg PO DAILY [facility] Last Admin: 09/08/16 10:54 Dose: 220 mg - Objective Vital Signs: Vital Signs Temperature 98.7 F 09/08/16 21:14 Pulse Rate 94 H 09/08/16 21:14 Respiratory Rate 18 09/08/16 21:14 Blood Pressure 112/74 09/08/16 21:14 O2 Sat by Pulse Oximetry (%) 96 09/07/16 21:00 Constitutional: Yes: No Distress Eyes: Yes: WNL HENT: Yes: WNL Neck: Yes: WNL Cardiovascular: Yes: WNL Respiratory: Yes: WNL Gastrointestinal: Yes: WNL Genitourinary: Yes: Incontinence Musculoskeletal: Yes: Muscle Weakness Extremities: Yes: WNL Edema: No Peripheral Pulses WNL: Yes Integumentary: Yes: WNL Wound/Incision: Yes: Other Neurological: Yes: Pre-Existing Deficit, Weakness ...Motor Strength: LLE, RLE Psychiatric: Yes: Other Labs: CBC, BMP 09/08/16 06:30 09/08/16 06:30 INR, PTT INR 1.18 (0.82-1.09) H 08/31/16 16:15 Problem List - Problems (1) COPD exacerbation Code(s): J44.1 - CHRONIC OBSTRUCTIVE PULMONARY DISEASE W (ACUTE) EXACERBATION (2) Hypoxia Code(s): R09.02 - HYPOXEMIA (3) Wound infection Code(s): T14.8 - OTHER INJURY OF UNSPECIFIED BODY REGION L08.9 - LOCAL INFECTION OF THE SKIN AND SUBCUTANEOUS TISSUE, UNSP (4) Pneumonia Code(s): J18.9 - PNEUMONIA, UNSPECIFIED ORGANISM Qualifiers: Pneumonia type: due to unspecified organism Lung location: unspecified part of lung (5) Spinal cord compression due to 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 (6) Psychiatric disorder Code(s): F99 - MENTAL DISORDER, NOT OTHERWISE SPECIFIED (7) Psychoses Code(s): F29 - UNSP PSYCHOSIS NOT DUE TO A SUBSTANCE OR KNOWN PHYSIOL COND (8) Spinal cord neoplasm Code(s): D49.7 - NEOPLM OF UNSP BEHAV OF ENDO GLANDS AND OTH PRT NERVOUS SYS Assessment/Plan AWAIT BIOPSY RESULT RESP THERAPY ONCOLOGY PLANNING FOR THERAPY ONCE BIOPSY RETURNS STOOL SOFTENERS
[2016-09-09] MEDS: ENOXAPARIN NA (PORCINE) 40 MG/0.4 ML DISP.SYRIN SQ SCH (10:08)
[2016-09-09] MEDS: DOCUSATE SODIUM 100 MG CAPSULE (FP) PO SCH (10:08)
[2016-09-09] MEDS: predniSONE 20 MG TABLET (UD) PO SCH (10:08)
[2016-09-09] MEDS: ASCORBIC ACID 500 MG TABLET (FP) PO SCH (10:08)
[2016-09-09] MEDS: AMINO ACIDS/PROTEIN HYDROLYS 30 ML LIQUID.PKT PO SCH ×2 (10:08→17:29)
[2016-09-09] MEDS: BACLOFEN 10 MG TABLET (FP) PO SCH (10:09)
[2016-09-09] MEDS: CITALOPRAM HYDROBROMIDE 20 MG TABLET (FP) PO SCH (10:09)
[2016-09-09] MEDS: ZINC SULFATE 220 MG CAPSULE (FP) PO SCH (10:09)
[2016-09-09] MEDS: COLLAGENASE CLOSTRIDIUM HIST. 30 GRAMS TUBE TP SCH (10:10)
[2016-09-09] MEDS ORDERED: PT OWN MED DRAWER 7, Y5N ONE (10:11)
[2016-09-09] MEDS: CEFUROXIME AXETIL 500 MG TABLET PO SCH ×2 (10:12→22:40)
[2016-09-09] MEDS: NYSTATIN/TRIAMCINOLONE TOPICAL CREAM 15 GM TUBE TP SCH ×2 (10:12→22:40)
--- NOTE | 2016-09-09 11:28 | PN ---
Progress Note (short form) - Note Progress Note: PULMONARY Reports palpitations. No shortness of breath or chest pain. HR in 130-140s Last Vital Signs Temp Pulse Resp BP Pulse Ox 98.7 F 94 H 18 112/74 96 09/08/16 21:14 09/08/16 21:14 09/08/16 21:14 09/08/16 21:14 09/07/16 21:00 Gen: NAD at rest Heart: tachycardcic, irregular Lung: decreased breath sounds at the bases, no wheezes appreciated Abd: soft, nontender Ext: no edema CBC, BMP 09/08/16 06:30 09/08/16 06:30 Active Medications Acetaminophen (Tylenol -) 650 mg PO Q4H PRN PRN Reason: FEVER OR PAIN Last Admin: 09/08/16 22:48 Dose: 650 mg Albuterol Sulfate (Ventolin 0.083% Nebulizer Soln -) 1 amp NEB Q6H PRN PRN Reason: SHORT OF BREATH/WHEEZING Amino Acids (Prosource No Carb Liquid Pkt) 30 ml PO BIDWM [facility] Last Admin: 09/09/16 10:08 Dose: 30 ml Ascorbic Acid (Vitamin C -) 500 mg PO DAILY [facility] Last Admin: 09/09/16 10:08 Dose: 500 mg Baclofen (Lioresal -) 10 mg PO DAILY [facility] Last Admin: 09/09/16 10:09 Dose: 10 mg Bisacodyl (Dulcolax -) 5 mg PO DAILY PRN PRN Reason: CONSTIPATION Cefuroxime Axetil (Ceftin -) 500 mg PO BID [facility] Last Admin: 09/09/16 10:12 Dose: 500 mg Citalopram Hydrobromide (Celexa -) 20 mg PO DAILY [facility] Last Admin: 09/09/16 10:09 Dose: Not Given Collagenase (Santyl -) 1 applic TP DAILY [facility] Last Admin: 09/09/16 10:10 Dose: 1 applic Diazepam (Valium -) 5 mg PO HS [facility] Last Admin: 09/08/16 22:42 Dose: Not Given Docusate Sodium (Colace -) 100 mg PO DAILY [facility] Last Admin: 09/09/16 10:08 Dose: 100 mg Enoxaparin Sodium (Lovenox -) 40 mg SQ DAILY [facility] Last Admin: 09/09/16 10:08 Dose: 40 mg Magnesium Hydroxide (Milk Of Magnesia -) 30 ml PO Q8H PRN PRN Reason: INDIGESTION Nystatin/Triamcinolone Acetonide (Mycolog Ii Cream -) 1 applic TP BID [facility] Last Admin: 09/09/16 10:12 Dose: 1 applic Polyethylene Glycol (Miralax (For Daily Use) -) 17 gm PO DAILY [facility] Prednisone (Deltasone -) 20 mg PO DAILY [facility] Last Admin: 09/09/16 10:08 Dose: 20 mg Senna (Senna -) 1 tab PO HS [facility] Last Admin: 09/08/16 22:42 Dose: 1 tab Sodium Phosphate (Fleet Adult Rectal Enema -) 133 ml RC PRN PRN Zinc Sulfate (Orazinc -) 220 mg PO DAILY [facility] Last Admin: 09/09/16 10:09 Dose: 220 mg A/P Pneumonia Acute COPD Exacerbation improving Metastatic Breast Ca with spinal mets Lower Extremity Paralysis Tachycardia - r/o rapid afib - stat EKG - may need transfer to telemetry - complete antibiotics - prednisone taper - inhaled bronchodilators - O2 to keep SpO2 >90% - DVT prophylaxis
[2016-09-09] MEDS ORDERED: METOPROLOL TARTRATE 5 MG/5 ML VIAL IVPUSH PRN (12:07)
--- NOTE | 2016-09-09 12:17 | PN ---
Progress Note (short form) - Note Progress Note: Radiation Oncology: Patient seen and examined. Films reviewed. Palliative radiotherapy to spine recommended. I will arrange for Sunday and will discuss with Oncology. Consult dictated.
[2016-09-09] MEDS: POLYETHYLENE GLYCOL 3350 119 GM BTL PO SCH (14:25)
--- NOTE | 2016-09-09 15:12 | PN ---
Progress Note (short form) - Note Progress Note: Patient seen and examined S/p chest wall biopsy Seen by RT and will have outpatient treatment Denies pain Last Vital Signs Temp Pulse Resp BP Pulse Ox 98.7 F 76 18 76/53 96 09/09/16 14:29 09/09/16 14:29 09/09/16 14:29 09/09/16 14:29 09/07/16 21:00 HEENT: ABHI, EOM Intact Oropharynx: No thrush, No mucositis Neck: Supple Nodes: Without adenopathy Breasts: s/p left mastectomy with excision of left chest wall mass Cor: RSR, No murmurs, No gallops Lungs: diminished breath sounds bilaterally Abd: Soft, Normal bowel sounds, No organomegaly Ext:contractures Skin: No rashes, Integument intact CBC, BMP 09/08/16 06:30 09/08/16 06:30 Current Medications Generic Name Dose Route Start Last Admin Trade Name Freq PRN Reason Stop Dose Admin Acetaminophen 650 mg 09/07/16 16:27 09/08/16 22:48 Tylenol - PO 650 mg Q4H PRN Administration FEVER OR PAIN Albuterol Sulfate 1 amp 09/07/16 16:27 Ventolin 0.083% Nebulizer Soln - NEB Q6H PRN SHORT OF BREATH/WHEEZING Amino Acids 30 ml 09/07/16 17:30 09/09/16 10:08 Prosource No Carb Liquid Pkt PO 30 ml BIDWM [facility] Administration Ascorbic Acid 500 mg 09/08/16 10:00 09/09/16 10:08 Vitamin C - PO 500 mg DAILY [facility] Administration Baclofen 10 mg 09/08/16 10:00 09/09/16 10:09 Lioresal - PO 10 mg DAILY [facility] Administration Bisacodyl 5 mg 09/09/16 09:23 Dulcolax - PO DAILY PRN CONSTIPATION Cefuroxime Axetil 500 mg 09/08/16 22:00 09/09/16 10:12 Ceftin - PO 500 mg BID [facility] Administration Citalopram Hydrobromide 20 mg 09/08/16 10:00 09/09/16 10:09 Celexa - PO Not Given DAILY [facility] Collagenase 1 applic 09/08/16 10:00 09/09/16 10:10 Santyl - TP 1 applic DAILY [facility] Administration Diazepam 5 mg 09/07/16 22:00 09/08/16 22:42 Valium - PO Not Given HS [facility] Docusate Sodium 100 mg 09/08/16 10:00 09/09/16 10:08 Colace - PO 100 mg DAILY [facility] Administration Enoxaparin Sodium 40 mg 09/08/16 10:00 09/09/16 10:08 Lovenox - SQ 40 mg DAILY [facility] Administration Magnesium Hydroxide 30 ml 09/09/16 09:23 Milk Of Magnesia - PO Q8H PRN INDIGESTION Metoprolol Tartrate 5 mg 09/09/16 12:07 09/09/16 13:55 Lopressor Injection - IVPUSH 5 mg Q4H PRN Administration HYPERTENSION Nystatin/Triamcinolone Acetonide 1 applic 09/07/16 22:00 09/09/16 10:12 Mycolog Ii Cream - TP 1 applic BID [facility] Administration Polyethylene Glycol 17 gm 09/09/16 10:00 09/09/16 14:25 Miralax (For Daily Use) - PO Not Given DAILY [facility] Prednisone 20 mg 09/08/16 11:40 09/09/16 10:08 Deltasone - PO 20 mg DAILY [facility] Administration Senna 1 tab 09/07/16 22:00 09/08/16 22:42 Senna - PO 1 tab HS [facility] Administration Sodium Phosphate 133 ml 09/07/16 16:27 Fleet Adult Rectal Enema - RC PRN PRN Zinc Sulfate 220 mg 09/08/16 10:00 09/09/16 10:09 Orazinc - PO 220 mg DAILY [facility] Administration Impression: Metastatic breast ca ER+ S/P chest wall excisional biopsy Plegia Plan : Await results of biopsy for receptors RT
--- NOTE | 2016-09-09 15:18 | EKG ---
Test Reason : Blood Pressure : / mmHG Vent. Rate : 168 BPM Atrial Rate : 329 BPM P-R Int : 000 ms QRS Dur : 068 ms QT Int : 234 ms P-R-T Axes : 257 003 151 degrees QTc Int : 391 ms ATRIAL FLUTTER WITH VARIABLE A-V BLOCK WITH PREMATURE VENTRICULAR OR ABERRANTLY CONDUCTED COMPLEXES NONSPECIFIC ST AND T WAVE ABNORMALITY ABNORMAL ECG WHEN COMPARED WITH ECG OF 02-SEP-2016 14:55, ATRIAL FLUTTER HAS REPLACED SINUS RHYTHM VENT. RATE HAS INCREASED BY [address] NOW DEPRESSED IN INFERIOR LEADS ST MORE DEPRESSED ANTERIOR LEADS NONSPECIFIC T WAVE ABNORMALITY NO LONGER EVIDENT IN ANTERIOR LEADS CLINICAL CORRELATION IS RECOMMENDED Confirmed by BRINDA CAMERON, JACQUELIN ([id number]) on 09/09/2016 3:18:15 PM Referred By: José Manuel CHOUDHARY Confirmed By:JACQUELIN PARRY MD
[2016-09-09] MEDS: SENNOSIDES 8.6MG TABLET (FP) PO SCH (22:40)
[2016-09-09] MEDS: diazePAM 5 MG TABLET PO SCH (22:41)
[2016-09-10] MEDS: BACLOFEN 10 MG TABLET (FP) PO SCH (10:57)
[2016-09-10] MEDS: ASCORBIC ACID 500 MG TABLET (FP) PO SCH (10:57)
[2016-09-10] MEDS: CEFUROXIME AXETIL 500 MG TABLET PO SCH ×2 (10:58→21:54)
[2016-09-10] MEDS: DOCUSATE SODIUM 100 MG CAPSULE (FP) PO SCH (10:58)
[2016-09-10] MEDS: ZINC SULFATE 220 MG CAPSULE (FP) PO SCH (10:58)
[2016-09-10] MEDS: CITALOPRAM HYDROBROMIDE 20 MG TABLET (FP) PO SCH (10:58)
[2016-09-10] MEDS: predniSONE 20 MG TABLET (UD) PO SCH (10:58)
[2016-09-10] MEDS: ENOXAPARIN NA (PORCINE) 40 MG/0.4 ML DISP.SYRIN SQ SCH (10:59)
[2016-09-10] MEDS: POLYETHYLENE GLYCOL 3350 119 GM BTL PO SCH (10:59)
--- NOTE | 2016-09-10 11:21 | PN ---
Progress Note, Physician Chief Complaint: EVENTS REVIEWED ON TELEMETRY FOR ONSET OF AFIB YESTERDAY NO C/O OF CHEST PAIN NOR SOB AT THIS TIME - Current Medication List Current Medications: Active Medications Acetaminophen (Tylenol -) 650 mg PO Q4H PRN PRN Reason: FEVER OR PAIN Last Admin: 09/08/16 22:48 Dose: 650 mg Albuterol Sulfate (Ventolin 0.083% Nebulizer Soln -) 1 amp NEB Q6H PRN PRN Reason: SHORT OF BREATH/WHEEZING Amino Acids (Prosource No Carb Liquid Pkt) 30 ml PO BIDWM [facility] Last Admin: 09/09/16 17:29 Dose: 30 ml Ascorbic Acid (Vitamin C -) 500 mg PO DAILY [facility] Last Admin: 09/10/16 10:57 Dose: 500 mg Baclofen (Lioresal -) 10 mg PO DAILY [facility] Last Admin: 09/10/16 10:57 Dose: 10 mg Bisacodyl (Dulcolax -) 5 mg PO DAILY PRN PRN Reason: CONSTIPATION Cefuroxime Axetil (Ceftin -) 500 mg PO BID [facility] Last Admin: 09/10/16 10:58 Dose: 500 mg Citalopram Hydrobromide (Celexa -) 20 mg PO DAILY [facility] Last Admin: 09/10/16 10:58 Dose: Not Given Collagenase (Santyl -) 1 applic TP DAILY [facility] Last Admin: 09/09/16 10:10 Dose: 1 applic Diazepam (Valium -) 5 mg PO HS [facility] Last Admin: 09/09/16 22:41 Dose: Not Given Docusate Sodium (Colace -) 100 mg PO DAILY [facility] Last Admin: 09/10/16 10:58 Dose: 100 mg Enoxaparin Sodium (Lovenox -) 40 mg SQ DAILY [facility] Last Admin: 09/10/16 10:59 Dose: 40 mg Magnesium Hydroxide (Milk Of Magnesia -) 30 ml PO Q8H PRN PRN Reason: INDIGESTION Metoprolol Tartrate (Lopressor Injection -) 5 mg IVPUSH Q4H PRN PRN Reason: HYPERTENSION Last Admin: 09/09/16 13:55 Dose: 5 mg Nystatin/Triamcinolone Acetonide (Mycolog Ii Cream -) 1 applic TP BID [facility] Last Admin: 09/09/16 22:40 Dose: Not Given Polyethylene Glycol (Miralax (For Daily Use) -) 17 gm PO DAILY [facility] Last Admin: 09/10/16 10:59 Dose: 17 gm Prednisone (Deltasone -) 20 mg PO DAILY [facility] Last Admin: 09/10/16 10:58 Dose: 20 mg Senna (Senna -) 1 tab PO HS [facility] Last Admin: 09/09/16 22:40 Dose: Not Given Sodium Phosphate (Fleet Adult Rectal Enema -) 133 ml RC PRN PRN Zinc Sulfate (Orazinc -) 220 mg PO DAILY [facility] Last Admin: 09/10/16 10:58 Dose: 220 mg - Objective Vital Signs: Vital Signs Temperature 97.8 F 09/10/16 06:00 Pulse Rate 56 L 09/10/16 06:00 Respiratory Rate 20 09/10/16 06:00 Blood Pressure 99/46 09/10/16 06:00 O2 Sat by Pulse Oximetry (%) 95 09/09/16 23:35 Constitutional: Yes: No Distress Eyes: Yes: WNL HENT: Yes: WNL Neck: Yes: WNL Cardiovascular: Yes: Bradycardia Respiratory: Yes: WNL Gastrointestinal: Yes: WNL Genitourinary: Yes: Other Musculoskeletal: Yes: Muscle Weakness Extremities: Yes: WNL Edema: No Peripheral Pulses WNL: Yes Integumentary: Yes: WNL Wound/Incision: Yes: Dressing Dry and Intact Neurological: Yes: Pre-Existing Deficit ...Motor Strength: LLE, RLE Psychiatric: Yes: Agitated Labs: CBC, BMP 09/08/16 06:30 09/08/16 06:30 INR, PTT INR 1.18 (0.82-1.09) H 08/31/16 16:15 Problem List - Problems (1) COPD exacerbation Code(s): J44.1 - CHRONIC OBSTRUCTIVE PULMONARY DISEASE W (ACUTE) EXACERBATION (2) Hypoxia Code(s): R09.02 - HYPOXEMIA (3) Wound infection Code(s): T14.8 - OTHER INJURY OF UNSPECIFIED BODY REGION L08.9 - LOCAL INFECTION OF THE SKIN AND SUBCUTANEOUS TISSUE, UNSP (4) Pneumonia Code(s): J18.9 - PNEUMONIA, UNSPECIFIED ORGANISM Qualifiers: Pneumonia type: due to unspecified organism Lung location: unspecified part of lung (5) Spinal cord compression due to 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 (6) Psychiatric disorder Code(s): F99 - MENTAL DISORDER, NOT OTHERWISE SPECIFIED (7) Psychoses Code(s): F29 - UNSP PSYCHOSIS NOT DUE TO A SUBSTANCE OR KNOWN PHYSIOL COND (8) Spinal cord neoplasm Code(s): D49.7 - NEOPLM OF UNSP BEHAV OF ENDO GLANDS AND OTH PRT NERVOUS SYS (9) Atrial fibrillation Code(s): I48.91 - UNSPECIFIED ATRIAL FIBRILLATION Assessment/Plan RATE CONTROL WITH IV METOPROLOL CARDIOLOGY EVAL TELEMETRY MONITORING CHECK LABS ON LOVENOX BREAST/SPINA CA 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
--- NOTE | 2016-09-10 12:22 | PN ---
Progress Note (short form) - Note Progress Note: Patient seen and examined No significant pain S/p chest wall excision Spoke with RT --Discussed goals of treatment in absence of pain and with little chance of functional recovery Last Vital Signs Temp Pulse Resp BP Pulse Ox 97 F L 73 20 101/56 95 09/10/16 10:00 09/10/16 10:00 09/10/16 10:00 09/10/16 10:00 09/09/16 23:35 HEENT: ABHI, EOM Intact Oropharynx: No thrush, No mucositis Nodes: Without adenopathy Breasts:left mastectomy; philomena- s/p biopsy , wound site clean Cor: RSR, No murmurs, No gallops Lungs: scattered rhonchi Abd: Soft, Normal bowel sounds, No organomegaly Ext:No significant edema contractures CBC, BMP 09/08/16 06:30 09/08/16 06:30 Current Medications Generic Name Dose Route Start Last Admin Trade Name Freq PRN Reason Stop Dose Admin Acetaminophen 650 mg 09/07/16 16:27 09/08/16 22:48 Tylenol - PO 650 mg Q4H PRN Administration FEVER OR PAIN Albuterol Sulfate 1 amp 09/07/16 16:27 Ventolin 0.083% Nebulizer Soln - NEB Q6H PRN SHORT OF BREATH/WHEEZING Amino Acids 30 ml 09/07/16 17:30 09/09/16 17:29 Prosource No Carb Liquid Pkt PO 30 ml BIDWM [facility] Administration Ascorbic Acid 500 mg 09/08/16 10:00 09/10/16 10:57 Vitamin C - PO 500 mg DAILY [facility] Administration Baclofen 10 mg 09/08/16 10:00 09/10/16 10:57 Lioresal - PO 10 mg DAILY [facility] Administration Bisacodyl 5 mg 09/09/16 09:23 Dulcolax - PO DAILY PRN CONSTIPATION Cefuroxime Axetil 500 mg 09/08/16 22:00 09/10/16 10:58 Ceftin - PO 500 mg BID [facility] Administration Citalopram Hydrobromide 20 mg 09/08/16 10:00 09/10/16 10:58 Celexa - PO Not Given DAILY [facility] Collagenase 1 applic 09/08/16 10:00 09/09/16 10:10 Santyl - TP 1 applic DAILY [facility] Administration Diazepam 5 mg 09/07/16 22:00 09/09/16 22:41 Valium - PO Not Given HS [facility] Docusate Sodium 100 mg 09/08/16 10:00 09/10/16 10:58 Colace - PO 100 mg DAILY [facility] Administration Enoxaparin Sodium 40 mg 09/08/16 10:00 09/10/16 10:59 Lovenox - SQ 40 mg DAILY [facility] Administration Magnesium Hydroxide 30 ml 09/09/16 09:23 Milk Of Magnesia - PO Q8H PRN INDIGESTION Metoprolol Tartrate 5 mg 09/09/16 12:07 09/09/16 13:55 Lopressor Injection - IVPUSH 5 mg Q4H PRN Administration HYPERTENSION Nystatin/Triamcinolone Acetonide 1 applic 09/07/16 22:00 09/09/16 22:40 Mycolog Ii Cream - TP Not Given BID [facility] Polyethylene Glycol 17 gm 09/09/16 10:00 09/10/16 10:59 Miralax (For Daily Use) - PO 17 gm DAILY [facility] Administration Prednisone 20 mg 09/08/16 11:40 09/10/16 10:58 Deltasone - PO 20 mg DAILY [facility] Administration Senna 1 tab 09/07/16 22:00 09/09/16 22:40 Senna - PO Not Given HS [facility] Sodium Phosphate 133 ml 09/07/16 16:27 Fleet Adult Rectal Enema - RC PRN PRN Zinc Sulfate 220 mg 09/08/16 10:00 09/10/16 10:58 Orazinc - PO 220 mg DAILY [facility] Administration Impression: Metastatic breast ca S/P excisional biopsy of chest wall lesion Bone/spine mets Await path ?RT to spine
[2016-09-10] MEDS: COLLAGENASE CLOSTRIDIUM HIST. 30 GRAMS TUBE TP SCH (12:30)
[2016-09-10] MEDS: NYSTATIN/TRIAMCINOLONE TOPICAL CREAM 15 GM TUBE TP SCH ×2 (12:30→21:54)
[2016-09-10] MEDS: AMINO ACIDS/PROTEIN HYDROLYS 30 ML LIQUID.PKT PO SCH ×2 (13:35→17:38)
[2016-09-10] MEDS: ACETAMINOPHEN 325 MG TABLET (FP) PO PRN ×2 (13:36→20:30)
--- NOTE | 2016-09-10 14:11 | PN ---
Progress Note (short form) - Note Progress Note: PULMONARY No shortness of breath or chest pain. Converted to sinus rhythm after lopressor push. Last Vital Signs Temp Pulse Resp BP Pulse Ox 97 F L 73 20 101/56 95 09/10/16 10:00 09/10/16 10:00 09/10/16 10:00 09/10/16 10:00 09/09/16 23:35 Gen: NAD at rest Heart: RRR Lung: decreased breath sounds at the bases, no wheezes appreciated Abd: soft, nontender Ext: no edema CBC, BMP 09/08/16 06:30 09/08/16 06:30 Active Medications Acetaminophen (Tylenol -) 650 mg PO Q4H PRN PRN Reason: FEVER OR PAIN Last Admin: 09/10/16 13:36 Dose: 650 mg Albuterol Sulfate (Ventolin 0.083% Nebulizer Soln -) 1 amp NEB Q6H PRN PRN Reason: SHORT OF BREATH/WHEEZING Amino Acids (Prosource No Carb Liquid Pkt) 30 ml PO BIDWM [facility] Last Admin: 09/10/16 13:35 Dose: Not Given Ascorbic Acid (Vitamin C -) 500 mg PO DAILY [facility] Last Admin: 09/10/16 10:57 Dose: 500 mg Baclofen (Lioresal -) 10 mg PO DAILY [facility] Last Admin: 09/10/16 10:57 Dose: 10 mg Bisacodyl (Dulcolax -) 5 mg PO DAILY PRN PRN Reason: CONSTIPATION Cefuroxime Axetil (Ceftin -) 500 mg PO BID [facility] Last Admin: 09/10/16 10:58 Dose: 500 mg Citalopram Hydrobromide (Celexa -) 20 mg PO DAILY [facility] Last Admin: 09/10/16 10:58 Dose: Not Given Collagenase (Santyl -) 1 applic TP DAILY [facility] Last Admin: 09/10/16 12:30 Dose: 1 applic Diazepam (Valium -) 5 mg PO HS [facility] Last Admin: 09/09/16 22:41 Dose: Not Given Docusate Sodium (Colace -) 100 mg PO DAILY [facility] Last Admin: 09/10/16 10:58 Dose: 100 mg Enoxaparin Sodium (Lovenox -) 40 mg SQ DAILY [facility] Last Admin: 09/10/16 10:59 Dose: 40 mg Magnesium Hydroxide (Milk Of Magnesia -) 30 ml PO Q8H PRN PRN Reason: INDIGESTION Metoprolol Tartrate (Lopressor Injection -) 5 mg IVPUSH Q4H PRN PRN Reason: HYPERTENSION Last Admin: 09/09/16 13:55 Dose: 5 mg Nystatin/Triamcinolone Acetonide (Mycolog Ii Cream -) 1 applic TP BID [facility] Last Admin: 09/10/16 12:30 Dose: 1 applic Polyethylene Glycol (Miralax (For Daily Use) -) 17 gm PO DAILY [facility] Last Admin: 09/10/16 10:59 Dose: 17 gm Prednisone (Deltasone -) 20 mg PO DAILY [facility] Last Admin: 09/10/16 10:58 Dose: 20 mg Senna (Senna -) 1 tab PO HS [facility] Last Admin: 09/09/16 22:40 Dose: Not Given Sodium Phosphate (Fleet Adult Rectal Enema -) 133 ml RC PRN PRN Zinc Sulfate (Orazinc -) 220 mg PO DAILY [facility] Last Admin: 09/10/16 10:58 Dose: 220 mg A/P Pneumonia Acute COPD Exacerbation improving Metastatic Breast Ca with spinal mets Lower Extremity Paralysis Atrial Fibrillation with RVR now in sinus - cardiology f/u - complete antibiotics - prednisone taper - inhaled bronchodilators - O2 to keep SpO2 >90% - DVT prophylaxis
--- NOTE | 2016-09-10 15:04 | PN ---
Progress Note, Physician Chief Complaint: transient atrial fibrillation History of Present Illness: This is a 66 year old female with a PMH of COPD, smoking, and pressure ulcers secondary to immobility. She was sent from her facility to the ED and was noted to be hypoxic and noted to have a UTI. She reported a nonproductive cough and worsening SOB for about 3 days prior to admission. EKG showed sinus bradycardia with marked sinus arrhythmia and NSSTTW changes. CXR showed possible left basilar consolidation and chest CT confirmed basilar infiltrates. The patient was noted to be in rapid atrial fibrillation. She was experiencing palpitations at that time. She received intravenous metoprolol and spontaneously converted to sinus rhythm. The patient has been maintaining sinus rhythm since. She denies chest pains, denied any other associated symptoms. She has chronic dyspnea. - Current Medication List Current Medications: Active Medications Acetaminophen (Tylenol -) 650 mg PO Q4H PRN PRN Reason: FEVER OR PAIN Last Admin: 09/10/16 13:36 Dose: 650 mg Albuterol Sulfate (Ventolin 0.083% Nebulizer Soln -) 1 amp NEB Q6H PRN PRN Reason: SHORT OF BREATH/WHEEZING Amino Acids (Prosource No Carb Liquid Pkt) 30 ml PO BIDWM [facility] Last Admin: 09/10/16 13:35 Dose: Not Given Ascorbic Acid (Vitamin C -) 500 mg PO DAILY [facility] Last Admin: 09/10/16 10:57 Dose: 500 mg Baclofen (Lioresal -) 10 mg PO DAILY [facility] Last Admin: 09/10/16 10:57 Dose: 10 mg Bisacodyl (Dulcolax -) 5 mg PO DAILY PRN PRN Reason: CONSTIPATION Cefuroxime Axetil (Ceftin -) 500 mg PO BID [facility] Last Admin: 09/10/16 10:58 Dose: 500 mg Citalopram Hydrobromide (Celexa -) 20 mg PO DAILY [facility] Last Admin: 09/10/16 10:58 Dose: Not Given Collagenase (Santyl -) 1 applic TP DAILY [facility] Last Admin: 09/10/16 12:30 Dose: 1 applic Diazepam (Valium -) 5 mg PO HS [facility] Last Admin: 09/09/16 22:41 Dose: Not Given Docusate Sodium (Colace -) 100 mg PO DAILY [facility] Last Admin: 09/10/16 10:58 Dose: 100 mg Enoxaparin Sodium (Lovenox -) 40 mg SQ DAILY [facility] Last Admin: 09/10/16 10:59 Dose: 40 mg Magnesium Hydroxide (Milk Of Magnesia -) 30 ml PO Q8H PRN PRN Reason: INDIGESTION Metoprolol Tartrate (Lopressor Injection -) 5 mg IVPUSH Q4H PRN PRN Reason: HYPERTENSION Last Admin: 09/09/16 13:55 Dose: 5 mg Nystatin/Triamcinolone Acetonide (Mycolog Ii Cream -) 1 applic TP BID [facility] Last Admin: 09/10/16 12:30 Dose: 1 applic Polyethylene Glycol (Miralax (For Daily Use) -) 17 gm PO DAILY [facility] Last Admin: 09/10/16 10:59 Dose: 17 gm Prednisone (Deltasone -) 20 mg PO DAILY [facility] Last Admin: 09/10/16 10:58 Dose: 20 mg Senna (Senna -) 1 tab PO HS [facility] Last Admin: 09/09/16 22:40 Dose: Not Given Sodium Phosphate (Fleet Adult Rectal Enema -) 133 ml RC PRN PRN Zinc Sulfate (Orazinc -) 220 mg PO DAILY [facility] Last Admin: 09/10/16 10:58 Dose: 220 mg - Objective Vital Signs: Vital Signs Temperature 97.4 F L 09/10/16 14:41 Pulse Rate 82 09/10/16 14:41 Respiratory Rate 20 09/10/16 14:41 Blood Pressure 111/64 09/10/16 14:41 O2 Sat by Pulse Oximetry (%) 95 09/09/16 23:35 Constitutional: Yes: No Distress Eyes: Yes: WNL HENT: Yes: WNL Neck: Yes: WNL Cardiovascular: Yes: Regular Rate and Rhythm, S1, S2 Respiratory: Yes: WNL Gastrointestinal: Yes: WNL Extremities: Yes: WNL Edema: No Peripheral Pulses WNL: Yes Neurological: Yes: WNL Labs: CBC, BMP 09/08/16 06:30 09/08/16 06:30 INR, PTT INR 1.18 (0.82-1.09) H 08/31/16 16:15 Assessment/Plan Transient atrial fibrillation. Currently in sinus rhythm, in no apparent distress. Would strongly recommend anticoagulation, unless contraindicated or too risky, for paroxysmal atrial fibrillation. Continue telemetry for the time being. No need for further cardiac workup at this point.
[2016-09-10] MEDS: SENNOSIDES 8.6MG TABLET (FP) PO SCH (21:54)
[2016-09-10] MEDS: diazePAM 5 MG TABLET PO SCH (21:55)
[2016-09-11] MEDS: ACETAMINOPHEN 325 MG TABLET (FP) PO PRN ×2 (04:58→21:31)
[2016-09-11 08:01] LABS: MCH 31.3 pg (25.7-33.7); MCHC 34.4 g/dl (32.0-36.0); MEAN PLT VOLUME 7.3 fl (7.5-11.1); PLATELET COUNT 234 K/MM3 (134-434); WHITE BLOOD COUNT 10.9 K/mm3 (4.0-10.0)
[2016-09-11 08:28] LABS: ALBUMIN 2.3 g/dl (3.4-5.0); ANION GAP 10 (8-16); CALCIUM 8.7 mg/dL (8.5-10.1); CO2 29 mmol/L (21-32); GLUCOSE,RANDOM 78 mg/dL (74-106); SGPT/ALT 18 U/L (12-78)
[2016-09-11 08:31] LABS: ALK PHOS 95 U/L (45-117); BILIRUBIN,TOTAL 0.5 mg/dL (0.2-1.0); CREATININE 0.3 mg/dL (0.55-1.02); SGOT/AST 14 U/L (15-37); TOT PROT 5.2 g/dl (6.4-8.2)
[2016-09-11] MEDS: AMINO ACIDS/PROTEIN HYDROLYS 30 ML LIQUID.PKT PO SCH ×2 (08:32→17:34)
[2016-09-11] MEDS ORDERED: PT OWN MED DRAWER 7, Y5N ONE (08:58)
[2016-09-11] MEDS: ENOXAPARIN NA (PORCINE) 40 MG/0.4 ML DISP.SYRIN SQ SCH (09:45)
[2016-09-11] MEDS: BACLOFEN 10 MG TABLET (FP) PO SCH (09:45)
[2016-09-11] MEDS: predniSONE 20 MG TABLET (UD) PO SCH (09:45)
[2016-09-11] MEDS: ASCORBIC ACID 500 MG TABLET (FP) PO SCH (09:45)
[2016-09-11] MEDS: ZINC SULFATE 220 MG CAPSULE (FP) PO SCH (09:45)
[2016-09-11] MEDS: CITALOPRAM HYDROBROMIDE 20 MG TABLET (FP) PO SCH (09:46)
[2016-09-11] MEDS: POLYETHYLENE GLYCOL 3350 119 GM BTL PO SCH (09:46)
[2016-09-11] MEDS: DOCUSATE SODIUM 100 MG CAPSULE (FP) PO SCH (09:46)
[2016-09-11] MEDS: CEFUROXIME AXETIL 500 MG TABLET PO SCH ×2 (09:46→21:27)
[2016-09-11] MEDS: NYSTATIN/TRIAMCINOLONE TOPICAL CREAM 15 GM TUBE TP SCH ×2 (09:46→21:27)
[2016-09-11] MEDS: ALBUTEROL SO4 0.083% IH SOL 2.5 MG/3 ML VIAL.NEB. NEB SCH ×2 (11:15→17:55)
[2016-09-11] MEDS: COLLAGENASE CLOSTRIDIUM HIST. 30 GRAMS TUBE TP SCH (12:40)
--- NOTE | 2016-09-11 12:50 | PN ---
Progress Note, Physician History of Present Illness: pulmonary alert,oob-chair,comfortable,-resp distress - Current Medication List Current Medications: Active Medications Acetaminophen (Tylenol -) 650 mg PO Q4H PRN PRN Reason: FEVER OR PAIN Last Admin: 09/11/16 04:58 Dose: 650 mg Albuterol Sulfate (Ventolin 0.083% Nebulizer Soln -) 1 amp NEB QIDR [facility] Amino Acids (Prosource No Carb Liquid Pkt) 30 ml PO BIDWM [facility] Last Admin: 09/11/16 08:32 Dose: Not Given Ascorbic Acid (Vitamin C -) 500 mg PO DAILY [facility] Last Admin: 09/11/16 09:45 Dose: 500 mg Baclofen (Lioresal -) 10 mg PO DAILY [facility] Last Admin: 09/11/16 09:45 Dose: 10 mg Bisacodyl (Dulcolax -) 5 mg PO DAILY PRN PRN Reason: CONSTIPATION Cefuroxime Axetil (Ceftin -) 500 mg PO BID [facility] Last Admin: 09/11/16 09:46 Dose: 500 mg Citalopram Hydrobromide (Celexa -) 20 mg PO DAILY [facility] Last Admin: 09/11/16 09:46 Dose: Not Given Collagenase (Santyl -) 1 applic TP DAILY [facility] Last Admin: 09/11/16 12:40 Dose: 1 applic Diazepam (Valium -) 5 mg PO HS [facility] Last Admin: 09/10/16 21:55 Dose: Not Given Docusate Sodium (Colace -) 100 mg PO DAILY [facility] Last Admin: 09/11/16 09:46 Dose: 100 mg Enoxaparin Sodium (Lovenox -) 40 mg SQ DAILY [facility] Last Admin: 09/11/16 09:45 Dose: 40 mg Magnesium Hydroxide (Milk Of Magnesia -) 30 ml PO Q8H PRN PRN Reason: INDIGESTION Metoprolol Tartrate (Lopressor Injection -) 5 mg IVPUSH Q4H PRN PRN Reason: HYPERTENSION Last Admin: 09/09/16 13:55 Dose: 5 mg Nystatin/Triamcinolone Acetonide (Mycolog Ii Cream -) 1 applic TP BID [facility] Last Admin: 09/11/16 09:46 Dose: 1 applic Polyethylene Glycol (Miralax (For Daily Use) -) 17 gm PO DAILY [facility] Last Admin: 09/11/16 09:46 Dose: 17 gm Prednisone (Deltasone -) 20 mg PO DAILY [facility] Last Admin: 09/11/16 09:45 Dose: 20 mg Senna (Senna -) 1 tab PO HS [facility] Last Admin: 09/10/16 21:54 Dose: Not Given Sodium Phosphate (Fleet Adult Rectal Enema -) 133 ml RC PRN PRN Zinc Sulfate (Orazinc -) 220 mg PO DAILY [facility] Last Admin: 09/11/16 09:45 Dose: 220 mg - Objective Vital Signs: Vital Signs Temperature 98.1 F 09/11/16 08:23 Pulse Rate 62 09/11/16 08:23 Respiratory Rate 20 09/11/16 08:23 Blood Pressure 93/59 09/11/16 08:23 O2 Sat by Pulse Oximetry (%) 96 09/10/16 21:00 Constitutional: Yes: Calm, Thin Eyes: Yes: WNL HENT: Yes: WNL Neck: Yes: WNL Cardiovascular: Yes: Regular Rate and Rhythm, S1, S2 Respiratory: Yes: Rhonchi (few rhonchi) Gastrointestinal: Yes: Normal Bowel Sounds, Soft Extremities: Yes: WNL Edema: No ...Motor Strength: LLE, RLE ( RADHA LOWER EXT PARALYSIS) Labs: CBC, BMP 09/11/16 06:05 09/11/16 06:05 INR, PTT INR 1.18 (0.82-1.09) H 08/31/16 16:15 Problem List - Problems (1) COPD exacerbation Code(s): J44.1 - CHRONIC OBSTRUCTIVE PULMONARY DISEASE W (ACUTE) EXACERBATION (2) Hypoxia Code(s): R09.02 - HYPOXEMIA (3) Pneumonia Code(s): J18.9 - PNEUMONIA, UNSPECIFIED ORGANISM Qualifiers: Pneumonia type: due to unspecified organism Lung location: unspecified part of lung (4) Acute respiratory failure with hypoxemia Code(s): J96.01 - ACUTE RESPIRATORY FAILURE WITH HYPOXIA (5) Breast CA Code(s): C50.919 - MALIGNANT NEOPLASM OF UNSP SITE OF UNSPECIFIED FEMALE BREAST Assessment/Plan IMP ACUTE HYPOXEMIC RESPIRATORY FAILURE IMPROVING COPD EXACERBATION PNEUMONIA BRONCHITIS METASTATIC BREAST CA LOWER EXTREMITY PARALYSIS SPINAL METS PLAN ANTIBIOTICS PER ID INHALED BRONCHODILATORS O2 TO MAINTAIN O2 SAT 90% RT DR FOUNTAIN Problem List - Problems (1) COPD exacerbation Code(s): J44.1 - CHRONIC OBSTRUCTIVE PULMONARY DISEASE W (ACUTE) EXACERBATION (2) Hypoxia Code(s): R09.02 - HYPOXEMIA (3) Pneumonia Code(s): J18.9 - PNEUMONIA, UNSPECIFIED ORGANISM Qualifiers: Pneumonia type: due to unspecified organism Lung location: unspecified part of lung (4) Acute respiratory failure with hypoxemia Code(s): J96.01 - ACUTE RESPIRATORY FAILURE WITH HYPOXIA (5) Breast CA Code(s): C50.919 - MALIGNANT NEOPLASM OF UNSP SITE OF UNSPECIFIED FEMALE BREAST
--- NOTE | 2016-09-11 15:20 | PN ---
Progress Note, Physician Chief Complaint: no new complaints tele nsr with apcs. no further atrial fibrillation. History of Present Illness: This is a 66 year old female with a PMH of COPD, smoking, and pressure ulcers secondary to immobility. She was sent from her facility to the ED and was noted to be hypoxic and noted to have a UTI. She reported a nonproductive cough and worsening SOB for about 3 days prior to admission. EKG showed sinus bradycardia with marked sinus arrhythmia and NSSTTW changes. CXR showed possible left basilar consolidation and chest CT confirmed basilar infiltrates. Noted with atrial fibrillation RVR spontaneously converted to NSR. - Current Medication List Current Medications: Active Medications Acetaminophen (Tylenol -) 650 mg PO Q4H PRN PRN Reason: FEVER OR PAIN Last Admin: 09/11/16 04:58 Dose: 650 mg Albuterol Sulfate (Ventolin 0.083% Nebulizer Soln -) 1 amp NEB QIDR [facility] Last Admin: 09/11/16 11:15 Dose: Not Given Amino Acids (Prosource No Carb Liquid Pkt) 30 ml PO BIDWM [facility] Last Admin: 09/11/16 08:32 Dose: Not Given Ascorbic Acid (Vitamin C -) 500 mg PO DAILY [facility] Last Admin: 09/11/16 09:45 Dose: 500 mg Baclofen (Lioresal -) 10 mg PO DAILY [facility] Last Admin: 09/11/16 09:45 Dose: 10 mg Bisacodyl (Dulcolax -) 5 mg PO DAILY PRN PRN Reason: CONSTIPATION Cefuroxime Axetil (Ceftin -) 500 mg PO BID [facility] Last Admin: 09/11/16 09:46 Dose: 500 mg Citalopram Hydrobromide (Celexa -) 20 mg PO DAILY [facility] Last Admin: 09/11/16 09:46 Dose: Not Given Collagenase (Santyl -) 1 applic TP DAILY [facility] Last Admin: 09/11/16 12:40 Dose: 1 applic Diazepam (Valium -) 5 mg PO HS [facility] Last Admin: 09/10/16 21:55 Dose: Not Given Docusate Sodium (Colace -) 100 mg PO DAILY [facility] Last Admin: 09/11/16 09:46 Dose: 100 mg Enoxaparin Sodium (Lovenox -) 40 mg SQ DAILY [facility] Last Admin: 09/11/16 09:45 Dose: 40 mg Magnesium Hydroxide (Milk Of Magnesia -) 30 ml PO Q8H PRN PRN Reason: INDIGESTION Metoprolol Tartrate (Lopressor Injection -) 5 mg IVPUSH Q4H PRN PRN Reason: HYPERTENSION Last Admin: 09/09/16 13:55 Dose: 5 mg Nystatin/Triamcinolone Acetonide (Mycolog Ii Cream -) 1 applic TP BID [facility] Last Admin: 09/11/16 09:46 Dose: 1 applic Polyethylene Glycol (Miralax (For Daily Use) -) 17 gm PO DAILY [facility] Last Admin: 09/11/16 09:46 Dose: 17 gm Prednisone (Deltasone -) 20 mg PO DAILY [facility] Last Admin: 09/11/16 09:45 Dose: 20 mg Senna (Senna -) 1 tab PO HS [facility] Last Admin: 09/10/16 21:54 Dose: Not Given Sodium Phosphate (Fleet Adult Rectal Enema -) 133 ml RC PRN PRN Zinc Sulfate (Orazinc -) 220 mg PO DAILY [facility] Last Admin: 09/11/16 09:45 Dose: 220 mg - Objective Vital Signs: Vital Signs Temperature 98.1 F 09/11/16 08:23 Pulse Rate 93 H 09/11/16 10:20 Respiratory Rate 20 09/11/16 08:23 Blood Pressure 93/59 09/11/16 08:23 O2 Sat by Pulse Oximetry (%) 92 L 09/11/16 10:20 Constitutional: Yes: No Distress, Calm Eyes: Yes: WNL HENT: Yes: Atraumatic, Normocephalic Neck: Yes: Supple, Trachea Midline Cardiovascular: Yes: Regular Rate and Rhythm Respiratory: Yes: CTA Bilaterally Gastrointestinal: Yes: Normal Bowel Sounds Edema: No Peripheral Pulses WNL: Yes Labs: CBC, BMP 09/11/16 06:05 09/11/16 06:05 INR, PTT INR 1.18 (0.82-1.09) H 08/31/16 16:15 Problem List - Problems (1) Atrial fibrillation Assessment/Plan: Telemetry with nsr at present. Would get echocardiogram. No need for medication change at present. Would start NOAC (Pradaxa, Eliquis or Xarelto) when surgically stable. Code(s): I48.91 - UNSPECIFIED ATRIAL FIBRILLATION Qualifiers: Atrial fibrillation type: paroxysmal Qualified Code(s): I48.0 - Paroxysmal atrial fibrillation
--- NOTE | 2016-09-11 17:19 | PN ---
Progress Note, Physician Chief Complaint: awake alert nad - Current Medication List Current Medications: Active Medications Acetaminophen (Tylenol -) 650 mg PO Q4H PRN PRN Reason: FEVER OR PAIN Last Admin: 09/11/16 04:58 Dose: 650 mg Albuterol Sulfate (Ventolin 0.083% Nebulizer Soln -) 1 amp NEB QIDR [facility] Last Admin: 09/11/16 11:15 Dose: Not Given Amino Acids (Prosource No Carb Liquid Pkt) 30 ml PO BIDWM [facility] Last Admin: 09/11/16 08:32 Dose: Not Given Ascorbic Acid (Vitamin C -) 500 mg PO DAILY [facility] Last Admin: 09/11/16 09:45 Dose: 500 mg Baclofen (Lioresal -) 10 mg PO DAILY [facility] Last Admin: 09/11/16 09:45 Dose: 10 mg Bisacodyl (Dulcolax -) 5 mg PO DAILY PRN PRN Reason: CONSTIPATION Cefuroxime Axetil (Ceftin -) 500 mg PO BID [facility] Last Admin: 09/11/16 09:46 Dose: 500 mg Citalopram Hydrobromide (Celexa -) 20 mg PO DAILY [facility] Last Admin: 09/11/16 09:46 Dose: Not Given Collagenase (Santyl -) 1 applic TP DAILY [facility] Last Admin: 09/11/16 12:40 Dose: 1 applic Diazepam (Valium -) 5 mg PO HS [facility] Last Admin: 09/10/16 21:55 Dose: Not Given Docusate Sodium (Colace -) 100 mg PO DAILY [facility] Last Admin: 09/11/16 09:46 Dose: 100 mg Enoxaparin Sodium (Lovenox -) 40 mg SQ DAILY [facility] Last Admin: 09/11/16 09:45 Dose: 40 mg Magnesium Hydroxide (Milk Of Magnesia -) 30 ml PO Q8H PRN PRN Reason: INDIGESTION Metoprolol Tartrate (Lopressor Injection -) 5 mg IVPUSH Q4H PRN PRN Reason: HYPERTENSION Last Admin: 09/09/16 13:55 Dose: 5 mg Nystatin/Triamcinolone Acetonide (Mycolog Ii Cream -) 1 applic TP BID [facility] Last Admin: 09/11/16 09:46 Dose: 1 applic Polyethylene Glycol (Miralax (For Daily Use) -) 17 gm PO DAILY [facility] Last Admin: 09/11/16 09:46 Dose: 17 gm Prednisone (Deltasone -) 20 mg PO DAILY [facility] Last Admin: 09/11/16 09:45 Dose: 20 mg Senna (Senna -) 1 tab PO HS [facility] Last Admin: 09/10/16 21:54 Dose: Not Given Sodium Phosphate (Fleet Adult Rectal Enema -) 133 ml RC PRN PRN Zinc Sulfate (Orazinc -) 220 mg PO DAILY [facility] Last Admin: 09/11/16 09:45 Dose: 220 mg - Objective Vital Signs: Vital Signs Temperature 98.7 F 09/11/16 15:00 Pulse Rate 90 09/11/16 15:00 Respiratory Rate 18 09/11/16 15:00 Blood Pressure 111/66 09/11/16 15:00 O2 Sat by Pulse Oximetry (%) 92 L 09/11/16 10:20 Constitutional: Yes: No Distress Eyes: Yes: WNL HENT: Yes: WNL Neck: Yes: WNL Cardiovascular: Yes: WNL Respiratory: Yes: On Nasal O2, Poor Air Entry, SOB Gastrointestinal: Yes: WNL Genitourinary: Yes: Incontinence Musculoskeletal: Yes: Muscle Weakness Extremities: Yes: WNL Edema: No Peripheral Pulses WNL: Yes Integumentary: Yes: WNL Wound/Incision: Yes: Clean/Dry Neurological: Yes: Unsteady Gait, Weakness ...Motor Strength: LLE, RLE Psychiatric: Yes: Other Labs: CBC, BMP 09/11/16 06:05 09/11/16 06:05 INR, PTT INR 1.18 (0.82-1.09) H 08/31/16 16:15 Problem List - Problems (1) COPD exacerbation Code(s): J44.1 - CHRONIC OBSTRUCTIVE PULMONARY DISEASE W (ACUTE) EXACERBATION (2) Hypoxia Code(s): R09.02 - HYPOXEMIA (3) Wound infection Code(s): T14.8 - OTHER INJURY OF UNSPECIFIED BODY REGION L08.9 - LOCAL INFECTION OF THE SKIN AND SUBCUTANEOUS TISSUE, UNSP (4) Pneumonia Code(s): J18.9 - PNEUMONIA, UNSPECIFIED ORGANISM Qualifiers: Pneumonia type: due to unspecified organism Lung location: unspecified part of lung (5) Spinal cord compression due to 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 (6) Psychiatric disorder Code(s): F99 - MENTAL DISORDER, NOT OTHERWISE SPECIFIED (7) Psychoses Code(s): F29 - UNSP PSYCHOSIS NOT DUE TO A SUBSTANCE OR KNOWN PHYSIOL COND (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
[2016-09-11] MEDS: SENNOSIDES 8.6MG TABLET (FP) PO SCH (21:27)
[2016-09-11] MEDS: diazePAM 5 MG TABLET PO SCH (21:28)
--- NOTE | 2016-09-11 22:39 | PN ---
Progress Note (short form) - Note Progress Note: PAtient seen and exained DEnies any complaints AFVSS Cor: RSR, No murmurs, No gallops Lungs: Clear to P&A Abd: Soft, Normal bowel sounds, No organomegaly Ext:No significant edema LAbs/Meds reviewed Home Medication List Medication Instructions Recorded Confirmed Type Albuterol 0.083% Nebulizer Bella 1 neb NEB QID PRN 08/31/16 08/31/16 History [Ventolin 0.083%] Amino Acids/Protein Hydrolys 30 ml PO BID 08/31/16 08/31/16 History [Pro-Stat Liquid] Amox-Tr/K Cl [Augmentin - 875Mg 1 tab PO BID 08/31/16 08/31/16 History Tablet] Ascorbic Acid [Vitamin C -] 500 mg PO DAILY 08/31/16 08/31/16 History Azithromycin [Zithromax -] 1 tab PO DAILY 08/31/16 08/31/16 History Baclofen 10 mg PO DAILY 08/31/16 08/31/16 History Calcium Carbonate/Vitamin D3 [Eq 1 each PO BID 08/31/16 08/31/16 History Calcium 500 + Vit D 400 Tab] Citalopram Hydrobromide [Celexa -] 20 mg PO DAILY 08/31/16 08/31/16 History Diazepam [Valium] 5 mg PO HS 08/31/16 08/31/16 History Docusate Sodium [Colace -] 100 mg PO DAILY 08/31/16 08/31/16 History Enoxaparin [Lovenox -] 40 mg SQ DAILY 08/31/16 08/31/16 History Guaifenesin [Robitussin -] 10 ml PO Q6H PRN 08/31/16 08/31/16 History Loperamide HCl [Imodium A-D] 2 mg PO PRN 08/31/16 08/31/16 History Magnesium Hydroxide [Milk of 400 mg PO PRN 08/31/16 08/31/16 History Magnesia] Na Phos,M-B/Na Phos,Di-Ba [Fleet 133 ml RC PRN 08/31/16 08/31/16 History Enema] Nystatin/Triamcinolone Top Cr 1 applic TP BID 08/31/16 08/31/16 History [Mycolog II Cream -] Sennosides [Senna] 8.6 mg PO HS 08/31/16 08/31/16 History Zinc Sulfate 220 mg PO DAILY 08/31/16 08/31/16 History Active Medications Generic Name Dose Route Start Last Admin Trade Name Freq PRN Reason Stop Dose Admin Acetaminophen 650 mg 09/07/16 16:27 09/12/16 04:26 Tylenol - PO 650 mg Q4H PRN Administration FEVER OR PAIN Albuterol Sulfate 1 amp 09/11/16 12:00 09/12/16 00:00 Ventolin 0.083% Nebulizer Soln - NEB 1 amp QIDR [facility]ONI Administration Amino Acids 30 ml 09/07/16 17:30 09/11/16 17:34 Prosource No Carb Liquid Pkt PO Not Given BIDWM [facility] Ascorbic Acid 500 mg 09/08/16 10:00 09/11/16 09:45 Vitamin C - PO 500 mg DAILY [facility]ONI Administration Baclofen 10 mg 09/08/16 10:00 09/11/16 09:45 Lioresal - PO 10 mg DAILY [facility] Administration Bisacodyl 5 mg 09/09/16 09:23 Dulcolax - PO DAILY PRN CONSTIPATION Cefuroxime Axetil 500 mg 09/08/16 22:00 09/11/16 21:27 Ceftin - PO 500 mg BID [facility] Administration Citalopram Hydrobromide 20 mg 09/08/16 10:00 09/11/16 09:46 Celexa - PO Not Given DAILY [facility] Collagenase 1 applic 09/08/16 10:00 09/11/16 12:40 Santyl - TP 1 applic DAILY [facility] Administration Diazepam 5 mg 09/07/16 22:00 09/11/16 21:28 Valium - PO Not Given [facility] Docusate Sodium 100 mg 09/08/16 10:00 09/11/16 09:46 Colace - PO 100 mg DAILY [facility] Administration Enoxaparin Sodium 40 mg 09/08/16 10:00 09/11/16 09:45 Lovenox - SQ 40 mg DAILY [facility] Administration Magnesium Hydroxide 30 ml 09/09/16 09:23 Milk Of Magnesia - PO Q8H PRN INDIGESTION Metoprolol Tartrate 5 mg 09/09/16 12:07 09/09/16 13:55 Lopressor Injection - IVPUSH 5 mg Q4H PRN Administration HYPERTENSION Nystatin/Triamcinolone Acetonide 1 applic 09/07/16 22:00 09/11/16 21:27 Mycolog Ii Cream - TP 1 applic BID [facility] Administration Polyethylene Glycol 17 gm 09/09/16 10:00 09/11/16 09:46 Miralax (For Daily Use) - PO 17 gm DAILY [facility] Administration Prednisone 20 mg 09/08/16 11:40 09/11/16 09:45 Deltasone - PO 20 mg DAILY [facility] Administration Senna 1 tab 09/07/16 22:00 09/11/16 21:27 Senna - PO 1 tab HS [facility] Administration Sodium Phosphate 133 ml 09/07/16 16:27 Fleet Adult Rectal Enema - RC PRN PRN Zinc Sulfate 220 mg 09/08/16 10:00 09/11/16 09:45 Orazinc - PO 220 mg DAILY [facility] Administration A/P 66 y/o patient with metastatic breast ca Bone mets, Chest wall recurrence. chronic Cord compression/paraplegia--Little chance of recovery from plegia PAtient had refused chemo/RT in past per daughter f/u chest wall biopsy for receptor status ? Zometa ? palliative RT Afib--? per cardiology CT chest --basilar infiltrates check bone scan and CT a/p to determine extent of disease
[2016-09-12] MEDS: ACETAMINOPHEN 325 MG TABLET (FP) PO PRN ×3 (04:26→21:43)
[2016-09-12] MEDS: ALBUTEROL SO4 0.083% IH SOL 2.5 MG/3 ML VIAL.NEB. NEB SCH ×4 (06:40→17:16)
[2016-09-12] MEDS: AMINO ACIDS/PROTEIN HYDROLYS 30 ML LIQUID.PKT PO SCH ×2 (09:08→16:52)
--- NOTE | 2016-09-12 09:12 | PN ---
Progress Note, Physician History of Present Illness: PT WITH BACK METS - Current Medication List Current Medications: Active Medications Acetaminophen (Tylenol -) 650 mg PO Q4H PRN PRN Reason: FEVER OR PAIN Last Admin: 09/12/16 04:26 Dose: 650 mg Albuterol Sulfate (Ventolin 0.083% Nebulizer Soln -) 1 amp NEB QIDR [facility] Last Admin: 09/12/16 06:40 Dose: Not Given Amino Acids (Prosource No Carb Liquid Pkt) 30 ml PO BIDWM [facility] Last Admin: 09/12/16 09:08 Dose: Not Given Ascorbic Acid (Vitamin C -) 500 mg PO DAILY [facility] Last Admin: 09/11/16 09:45 Dose: 500 mg Baclofen (Lioresal -) 10 mg PO DAILY [facility] Last Admin: 09/11/16 09:45 Dose: 10 mg Bisacodyl (Dulcolax -) 5 mg PO DAILY PRN PRN Reason: CONSTIPATION Cefuroxime Axetil (Ceftin -) 500 mg PO BID [facility] Last Admin: 09/11/16 21:27 Dose: 500 mg Citalopram Hydrobromide (Celexa -) 20 mg PO DAILY [facility] Last Admin: 09/11/16 09:46 Dose: Not Given Collagenase (Santyl -) 1 applic TP DAILY [facility] Last Admin: 09/11/16 12:40 Dose: 1 applic Diazepam (Valium -) 5 mg PO HS [facility] Last Admin: 09/11/16 21:28 Dose: Not Given Docusate Sodium (Colace -) 100 mg PO DAILY [facility] Last Admin: 09/11/16 09:46 Dose: 100 mg Enoxaparin Sodium (Lovenox -) 40 mg SQ DAILY [facility] Last Admin: 09/11/16 09:45 Dose: 40 mg Magnesium Hydroxide (Milk Of Magnesia -) 30 ml PO Q8H PRN PRN Reason: INDIGESTION Metoprolol Tartrate (Lopressor Injection -) 5 mg IVPUSH Q4H PRN PRN Reason: HYPERTENSION Last Admin: 09/09/16 13:55 Dose: 5 mg Nystatin/Triamcinolone Acetonide (Mycolog Ii Cream -) 1 applic TP BID [facility] Last Admin: 09/11/16 21:27 Dose: 1 applic Polyethylene Glycol (Miralax (For Daily Use) -) 17 gm PO DAILY [facility] Last Admin: 09/11/16 09:46 Dose: 17 gm Prednisone (Deltasone -) 20 mg PO DAILY [facility] Last Admin: 09/11/16 09:45 Dose: 20 mg Senna (Senna -) 1 tab PO HS [facility] Last Admin: 09/11/16 21:27 Dose: 1 tab Sodium Phosphate (Fleet Adult Rectal Enema -) 133 ml RC PRN PRN Zinc Sulfate (Orazinc -) 220 mg PO DAILY [facility] Last Admin: 09/11/16 09:45 Dose: 220 mg - Objective Vital Signs: Vital Signs Temperature 98.1 F 09/12/16 08:12 Pulse Rate 81 09/12/16 08:12 Respiratory Rate 20 09/12/16 08:12 Blood Pressure 83/54 09/12/16 08:12 O2 Sat by Pulse Oximetry (%) 92 L 09/11/16 21:00 Cardiovascular: Yes: S1, S2 Respiratory: Yes: Regular, CTA Bilaterally Gastrointestinal: Yes: Normal Bowel Sounds, Soft Edema: No Labs: CBC, BMP 09/11/16 06:05 09/11/16 06:05 INR, PTT INR 1.18 (0.82-1.09) H 08/31/16 16:15 Problem List - Problems (1) Acute respiratory failure with hypoxemia Code(s): J96.01 - ACUTE RESPIRATORY FAILURE WITH HYPOXIA (2) Breast CA Assessment/Plan: R/O RECURRENT CANCER ONCOLOGY CONSULT NOTED AWAIT BIOPSY CA27.29 Laboratory Tests 09/02/16 11:00 CA 27-29 55 H Code(s): C50.919 - MALIGNANT NEOPLASM OF UNSP SITE OF UNSPECIFIED FEMALE BREAST (3) COPD (chronic obstructive pulmonary disease) Assessment/Plan: NEBS MONITOR SAT ON O2 Code(s): J44.9 - CHRONIC OBSTRUCTIVE PULMONARY DISEASE, UNSPECIFIED (4) Spinal cord compression due to malignant neoplasm metastatic to spine Assessment/Plan: AWAIT PATH REPORT Code(s): G95.20 - UNSPECIFIED CORD COMPRESSION C79.51 - SECONDARY MALIGNANT NEOPLASM OF BONE (5) Thoracic spine fracture Assessment/Plan: NS CONSULT NOTED AND APPRECIATED ONCOLOGY Code(s): S22.009A - UNSP FRACTURE OF UNSP THORACIC VERTEBRA, INIT FOR CLOS FX (6) Thoracic spine tumor Assessment/Plan: ABOVE Code(s): D49.2 - NEOPLASM OF UNSP BEHAVIOR OF BONE, SOFT TISSUE, AND SKIN
[2016-09-12] MEDS: BACLOFEN 10 MG TABLET (FP) PO SCH (09:23)
[2016-09-12] MEDS: ASCORBIC ACID 500 MG TABLET (FP) PO SCH (09:23)
[2016-09-12] MEDS: predniSONE 20 MG TABLET (UD) PO SCH (09:23)
[2016-09-12] MEDS: CITALOPRAM HYDROBROMIDE 20 MG TABLET (FP) PO SCH (09:23)
[2016-09-12] MEDS: ENOXAPARIN NA (PORCINE) 40 MG/0.4 ML DISP.SYRIN SQ SCH (09:23)
[2016-09-12] MEDS: ZINC SULFATE 220 MG CAPSULE (FP) PO SCH (09:23)
[2016-09-12] MEDS: CEFUROXIME AXETIL 500 MG TABLET PO SCH ×2 (09:24→21:44)
[2016-09-12] MEDS: COLLAGENASE CLOSTRIDIUM HIST. 30 GRAMS TUBE TP SCH (09:24)
[2016-09-12] MEDS: DOCUSATE SODIUM 100 MG CAPSULE (FP) PO SCH (09:24)
[2016-09-12] MEDS: POLYETHYLENE GLYCOL 3350 119 GM BTL PO SCH (09:24)
[2016-09-12] MEDS: NYSTATIN/TRIAMCINOLONE TOPICAL CREAM 15 GM TUBE TP SCH ×2 (09:24→21:44)
--- NOTE | 2016-09-12 11:23 | PN ---
Progress Note, Physician History of Present Illness: PULMONARY ALERT,NAD,-RESP DISTRESS - Current Medication List Current Medications: Active Medications Acetaminophen (Tylenol -) 650 mg PO Q4H PRN PRN Reason: FEVER OR PAIN Last Admin: 09/12/16 04:26 Dose: 650 mg Albuterol Sulfate (Ventolin 0.083% Nebulizer Soln -) 1 amp NEB QIDR [facility] Last Admin: 09/12/16 11:08 Dose: Not Given Amino Acids (Prosource No Carb Liquid Pkt) 30 ml PO BIDWM [facility] Last Admin: 09/12/16 09:08 Dose: Not Given Ascorbic Acid (Vitamin C -) 500 mg PO DAILY [facility] Last Admin: 09/12/16 09:23 Dose: 500 mg Baclofen (Lioresal -) 10 mg PO DAILY [facility] Last Admin: 09/12/16 09:23 Dose: 10 mg Bisacodyl (Dulcolax -) 5 mg PO DAILY PRN PRN Reason: CONSTIPATION Cefuroxime Axetil (Ceftin -) 500 mg PO BID [facility] Last Admin: 09/12/16 09:24 Dose: Not Given Citalopram Hydrobromide (Celexa -) 20 mg PO DAILY [facility] Last Admin: 09/12/16 09:23 Dose: Not Given Collagenase (Santyl -) 1 applic TP DAILY [facility] Last Admin: 09/12/16 09:24 Dose: 1 applic Diazepam (Valium -) 5 mg PO HS [facility] Last Admin: 09/11/16 21:28 Dose: Not Given Docusate Sodium (Colace -) 100 mg PO DAILY [facility] Last Admin: 09/12/16 09:24 Dose: 100 mg Enoxaparin Sodium (Lovenox -) 40 mg SQ DAILY [facility] Last Admin: 09/12/16 09:23 Dose: 40 mg Magnesium Hydroxide (Milk Of Magnesia -) 30 ml PO Q8H PRN PRN Reason: INDIGESTION Metoprolol Tartrate (Lopressor Injection -) 5 mg IVPUSH Q4H PRN PRN Reason: HYPERTENSION Last Admin: 09/09/16 13:55 Dose: 5 mg Nystatin/Triamcinolone Acetonide (Mycolog Ii Cream -) 1 applic TP BID [facility] Last Admin: 09/12/16 09:24 Dose: 1 applic Polyethylene Glycol (Miralax (For Daily Use) -) 17 gm PO DAILY [facility] Last Admin: 09/12/16 09:24 Dose: Not Given Prednisone (Deltasone -) 20 mg PO DAILY [facility] Last Admin: 09/12/16 09:23 Dose: 20 mg Senna (Senna -) 1 tab PO HS [facility] Last Admin: 09/11/16 21:27 Dose: 1 tab Sodium Phosphate (Fleet Adult Rectal Enema -) 133 ml RC PRN PRN Zinc Sulfate (Orazinc -) 220 mg PO DAILY [facility] Last Admin: 09/12/16 09:23 Dose: 220 mg - Objective Vital Signs: Vital Signs Temperature 98.1 F 09/12/16 08:12 Pulse Rate 70 09/12/16 11:08 Respiratory Rate 20 09/12/16 08:12 Blood Pressure 83/54 09/12/16 08:12 O2 Sat by Pulse Oximetry (%) 92 L 09/12/16 11:08 Constitutional: Yes: Well Nourished, Thin Eyes: Yes: WNL HENT: Yes: WNL Neck: Yes: WNL Cardiovascular: Yes: Regular Rate and Rhythm, S1, S2 Respiratory: Yes: Diminished Gastrointestinal: Yes: Normal Bowel Sounds, Soft Extremities: Yes: WNL Edema: No Neurological: Yes: Other (LOWER EXT PARAPLEGIA) Labs: CBC, BMP 09/11/16 06:05 09/11/16 06:05 INR, PTT INR 1.18 (0.82-1.09) H 08/31/16 16:15 Problem List - Problems (1) COPD exacerbation Code(s): J44.1 - CHRONIC OBSTRUCTIVE PULMONARY DISEASE W (ACUTE) EXACERBATION (2) Hypoxia Code(s): R09.02 - HYPOXEMIA (3) Pneumonia Code(s): J18.9 - PNEUMONIA, UNSPECIFIED ORGANISM Qualifiers: Pneumonia type: due to unspecified organism Lung location: unspecified part of lung (4) Acute respiratory failure with hypoxemia Code(s): J96.01 - ACUTE RESPIRATORY FAILURE WITH HYPOXIA (5) Breast CA Code(s): C50.919 - MALIGNANT NEOPLASM OF UNSP SITE OF UNSPECIFIED FEMALE BREAST Assessment/Plan IMP ACUTE HYPOXEMIC RESPIRATORY FAILURE IMPROVING COPD EXACERBATION PNEUMONIA BRONCHITIS METASTATIC BREAST CA LOWER EXTREMITY PARALYSIS SPINAL METS PLAN ANTIBIOTICS PER ID INHALED BRONCHODILATORS O2 TO MAINTAIN O2 SAT 90% RT DR FOUNTAIN Problem List - Problems (1) COPD exacerbation Code(s): J44.1 - CHRONIC OBSTRUCTIVE PULMONARY DISEASE W (ACUTE) EXACERBATION (2) Hypoxia Code(s): R09.02 - HYPOXEMIA (3) Pneumonia Code(s): J18.9 - PNEUMONIA, UNSPECIFIED ORGANISM Qualifiers: Pneumonia type: due to unspecified organism Lung location: unspecified part of lung (4) Acute respiratory failure with hypoxemia Code(s): J96.01 - ACUTE RESPIRATORY FAILURE WITH HYPOXIA (5) Breast CA Code(s): C50.919 - MALIGNANT NEOPLASM OF UNSP SITE OF UNSPECIFIED FEMALE BREAST
--- NOTE | 2016-09-12 14:00 | PATH ---
Surgical Pathology Report Patient Name: MEENU WARD [facility]. Rec. #: [id number] /Age/Gender: 1950 (Age: 66) / F Account: [id number] Location: 4 TELEMETRY U Taken: 09/07/2016 Received: 09/08/2016 Reported: 09/12/2016 Physicians: Chloe Bravo M.D. Smitha Mellacheruvu, M.D. Specimen(s) Received LEFT CHEST WALL TUMOR Clinical History Chest wall mass left Final Diagnosis CHEST WALL TUMOR, LEFT, EXCISION: SKIN AND UNDERLYING SOFT TISSUE WITH INVOLVEMENT BY MAMMARY CARCINOMA WITH DUCTAL PHENOTYPE (SEE COMMENT). Comment: Immunohistochemical stains performed and interpreted at [facility] on block #3 show the following: The tumor cells are positive for CK7, ER, and e-cadherin immunostains, focally positive for NH and are negative for CK20. Additional immunohistochemical stains performed on block #4 at [place], [place] ([id number]) and interpreted at [facility] show the following: The tumor cells are positive for VENTURA-3 immunostain and are negative for mammaglobin. The morphologic findings and the immunoprofile are consistent with involvement by mammary carcinoma with ductal phenotype. Results of Estrogen Receptor (ER) and Progesterone Receptor (NH) studies performed on block #3 at [facility] are as follows: ER (clone [id number] mouse monoclonal antibody by [employer]): ~70% nuclear staining with strong to moderate intensity (Positive). NH (clone16 mouse monoclonal antibody by [employer]): ~5% nuclear staining with weak to moderate intensity (Positive). Result of Her2 IHC performed on block #4 at [place], [place] ([id number]) is as follows: Her2 IHC (EP3 from [employer], formerly known as [id number], using [employer] Polymer Refine detection kit): 1+ (Negative) Positive and negative controls (internal if applicable) show appropriate results. Electronically Signed Mike Osorio M.D. Gross Description Received in formalin labeled "left chest wall tumor" is a 4.0 x 2.0 cm zimmer, elliptical, unoriented portion of skin excised to a depth of 1.4 cm. The epidermal surface displays a focal 1.0 x 0.8 cm centrally ulcerated lesion. Sectioning reveals a 1.8 x 1.7 x 1.2 cm homogeneous zimmer, firm mass abutting the radial and deep margins and skin. Masking Machine Operator sections are submitted in 7 cassettes as follows: 1-undesignated tips; 6-7-tsmlzsck and sequentially submitted mass. Time to fixation: not indicated Total formalin fixation time: Approximately 26 hours 09/08/201609/08/2016
--- NOTE | 2016-09-12 14:51 | PN ---
Progress Note, Physician Chief Complaint: no new complaints tele nsr with apcs. no further atrial fibrillation. History of Present Illness: This is a 66 year old female with a PMH of COPD, smoking, and pressure ulcers secondary to immobility. She was sent from her facility to the ED and was noted to be hypoxic and noted to have a UTI. She reported a nonproductive cough and worsening SOB for about 3 days prior to admission. EKG showed sinus bradycardia with marked sinus arrhythmia and NSSTTW changes. CXR showed possible left basilar consolidation and chest CT confirmed basilar infiltrates. Noted with atrial fibrillation RVR spontaneously converted to NSR. Echo 09/12/16 normal EF. no significant valvular pathology. - Current Medication List Current Medications: Active Medications Acetaminophen (Tylenol -) 650 mg PO Q4H PRN PRN Reason: FEVER OR PAIN Last Admin: 09/12/16 12:28 Dose: 650 mg Albuterol Sulfate (Ventolin 0.083% Nebulizer Soln -) 1 amp NEB QIDR [facility] Last Admin: 09/12/16 11:08 Dose: Not Given Amino Acids (Prosource No Carb Liquid Pkt) 30 ml PO BIDWM [facility] Last Admin: 09/12/16 09:08 Dose: Not Given Ascorbic Acid (Vitamin C -) 500 mg PO DAILY [facility] Last Admin: 09/12/16 09:23 Dose: 500 mg Baclofen (Lioresal -) 10 mg PO DAILY [facility] Last Admin: 09/12/16 09:23 Dose: 10 mg Bisacodyl (Dulcolax -) 5 mg PO DAILY PRN PRN Reason: CONSTIPATION Cefuroxime Axetil (Ceftin -) 500 mg PO BID [facility] Last Admin: 09/12/16 09:24 Dose: Not Given Citalopram Hydrobromide (Celexa -) 20 mg PO DAILY [facility] Last Admin: 09/12/16 09:23 Dose: Not Given Collagenase (Santyl -) 1 applic TP DAILY [facility] Last Admin: 09/12/16 09:24 Dose: 1 applic Diazepam (Valium -) 5 mg PO HS [facility] Last Admin: 09/11/16 21:28 Dose: Not Given Docusate Sodium (Colace -) 100 mg PO DAILY [facility] Last Admin: 09/12/16 09:24 Dose: 100 mg Enoxaparin Sodium (Lovenox -) 40 mg SQ DAILY [facility] Last Admin: 09/12/16 09:23 Dose: 40 mg Magnesium Hydroxide (Milk Of Magnesia -) 30 ml PO Q8H PRN PRN Reason: INDIGESTION Metoprolol Tartrate (Lopressor Injection -) 5 mg IVPUSH Q4H PRN PRN Reason: HYPERTENSION Last Admin: 09/09/16 13:55 Dose: 5 mg Nystatin/Triamcinolone Acetonide (Mycolog Ii Cream -) 1 applic TP BID [facility] Last Admin: 09/12/16 09:24 Dose: 1 applic Polyethylene Glycol (Miralax (For Daily Use) -) 17 gm PO DAILY [facility] Last Admin: 09/12/16 09:24 Dose: Not Given Prednisone (Deltasone -) 20 mg PO DAILY [facility] Last Admin: 09/12/16 09:23 Dose: 20 mg Senna (Senna -) 1 tab PO HS [facility] Last Admin: 09/11/16 21:27 Dose: 1 tab Sodium Phosphate (Fleet Adult Rectal Enema -) 133 ml RC PRN PRN Zinc Sulfate (Orazinc -) 220 mg PO DAILY [facility] Last Admin: 09/12/16 09:23 Dose: 220 mg - Objective Vital Signs: Vital Signs Temperature 98.1 F 09/12/16 08:12 Pulse Rate 70 09/12/16 11:08 Respiratory Rate 20 09/12/16 08:12 Blood Pressure 83/54 09/12/16 08:12 O2 Sat by Pulse Oximetry (%) 92 L 09/12/16 11:08 Constitutional: Yes: Well Nourished, No Distress Eyes: Yes: Conjunctiva Clear HENT: Yes: Atraumatic, Normocephalic Neck: Yes: Supple, Trachea Midline Cardiovascular: Yes: Regular Rate and Rhythm Respiratory: Yes: CTA Bilaterally Gastrointestinal: Yes: Normal Bowel Sounds Edema: No Peripheral Pulses WNL: Yes Labs: CBC, BMP 09/11/16 06:05 09/11/16 06:05 INR, PTT INR 1.18 (0.82-1.09) H 08/31/16 16:15 Problem List - Problems (1) Atrial fibrillation Assessment/Plan: Telemetry with nsr at present. Echo unremarkable. No need for medication change at present. Would start NOAC (Pradaxa, Eliquis or Xarelto) or full dose lovenox when surgically stable. stable to DC telemetry. will follow as needed. Code(s): I48.91 - UNSPECIFIED ATRIAL FIBRILLATION Qualifiers: Atrial fibrillation type: paroxysmal Qualified Code(s): I48.0 - Paroxysmal atrial fibrillation
--- NOTE | 2016-09-12 17:47 | PN ---
Progress Note (short form) - Note Progress Note: Patient seen and examined Results of surgical chest wall biopsy- mammary carcinoma- E2BP +, Pr+, Her-2 negative . Seen by cardiology- no longer in atrial fib--RSR Last Vital Signs Temp Pulse Resp BP Pulse Ox 96.8 F L 96 H 20 99/60 92 L 09/12/16 15:00 09/12/16 15:00 09/12/16 15:00 09/12/16 15:00 09/12/16 11:08 HEENT: ABHI, EOM Intact Oropharynx: No thrush, No mucositis Neck: Supple Nodes: Without adenopathy Breasts- left chest wall - s/p mastectomy ; s/p left chest wall excision Cor: RSR, No murmurs, No gallops Lungs: diminished Abd: Soft, Normal bowel sounds, No organomegaly Ext:No significant edema, contractures Skin: No rashes, Integument intact CBC, BMP 09/11/16 06:05 09/11/16 06:05 Current Medications Generic Name Dose Route Start Last Admin Trade Name Harjitq PRN Reason Stop Dose Admin Acetaminophen 650 mg 09/07/16 16:27 09/12/16 12:28 Tylenol - PO 650 mg Q4H PRN Administration FEVER OR PAIN Albuterol Sulfate 1 amp 09/11/16 12:00 09/12/16 17:16 Ventolin 0.083% Nebulizer Soln - NEB Not Given QIDR SONI Amino Acids 30 ml 09/07/16 17:30 09/12/16 16:52 Prosource No Carb Liquid Pkt PO Not Given BIDWM SONI Ascorbic Acid 500 mg 09/08/16 10:00 09/12/16 09:23 Vitamin C - PO 500 mg DAILY SONI Administration Baclofen 10 mg 09/08/16 10:00 09/12/16 09:23 Lioresal - PO 10 mg DAILY SONI Administration Bisacodyl 5 mg 09/09/16 09:23 Dulcolax - PO DAILY PRN CONSTIPATION Cefuroxime Axetil 500 mg 09/08/16 22:00 09/12/16 09:24 Ceftin - PO Not Given BID SONI Citalopram Hydrobromide 20 mg 09/08/16 10:00 09/12/16 09:23 Celexa - PO Not Given DAILY SONI Collagenase 1 applic 09/08/16 10:00 09/12/16 09:24 Santyl - TP 1 applic DAILY SONI Administration Diazepam 5 mg 09/07/16 22:00 09/11/16 21:28 Valium - PO Not Given HS SONI Docusate Sodium 100 mg 09/08/16 10:00 09/12/16 09:24 Colace - PO 100 mg DAILY SONI Administration Enoxaparin Sodium 40 mg 09/08/16 10:00 09/12/16 09:23 Lovenox - SQ 40 mg DAILY SONI Administration Magnesium Hydroxide 30 ml 09/09/16 09:23 Milk Of Magnesia - PO Q8H PRN INDIGESTION Metoprolol Tartrate 5 mg 09/09/16 12:07 09/09/16 13:55 Lopressor Injection - IVPUSH 5 mg Q4H PRN Administration HYPERTENSION Nystatin/Triamcinolone Acetonide 1 applic 09/07/16 22:00 09/12/16 09:24 Mycolog Ii Cream - TP 1 applic BID SONI Administration Polyethylene Glycol 17 gm 09/09/16 10:00 09/12/16 09:24 Miralax (For Daily Use) - PO Not Given DAILY SONI Prednisone 20 mg 09/08/16 11:40 09/12/16 09:23 Deltasone - PO 20 mg DAILY SONI Administration Senna 1 tab 09/07/16 22:00 09/11/16 21:27 Senna - PO 1 tab HS SONI Administration Sodium Phosphate 133 ml 09/07/16 16:27 Fleet Adult Rectal Enema - RC PRN PRN Zinc Sulfate 220 mg 09/08/16 10:00 09/12/16 09:23 Orazinc - PO 220 mg DAILY SONI Administration Impression: Metastatic breast ca- spine , chest wall involvement S/P excision of chest wall mass-- ER+, OR+, Her-2 negative S/P mastectomy Cord compression with plegia and little chance for recovery of LE function Consider: Chest wall RT when sutures removed ?? RT to spine Further w/u with bone scan and CT scans Contact DR. Castañeda- oncologist --[phone]. Discuss prior treatment and decide upon hormonal therapy.
[2016-09-12] MEDS: diazePAM 5 MG TABLET PO SCH (21:45)
[2016-09-12] MEDS: SENNOSIDES 8.6MG TABLET (FP) PO SCH (21:45)
[2016-09-13] MEDS: ALBUTEROL SO4 0.083% IH SOL 2.5 MG/3 ML VIAL.NEB. NEB SCH ×4 (06:15→18:20)
[2016-09-13] MEDS: AMINO ACIDS/PROTEIN HYDROLYS 30 ML LIQUID.PKT PO SCH ×2 (08:13→17:03)
--- NOTE | 2016-09-13 09:10 | PN ---
Progress Note, Physician History of Present Illness: PT WITH BACK METS C/O PAIN - Current Medication List Current Medications: Active Medications Acetaminophen (Tylenol -) 650 mg PO Q4H PRN PRN Reason: FEVER OR PAIN Last Admin: 09/12/16 21:43 Dose: 650 mg Albuterol Sulfate (Ventolin 0.083% Nebulizer Soln -) 1 amp NEB QIDR [facility] Last Admin: 09/13/16 06:15 Dose: 1 amp Amino Acids (Prosource No Carb Liquid Pkt) 30 ml PO BIDWM [facility] Last Admin: 09/13/16 08:13 Dose: 30 ml Ascorbic Acid (Vitamin C -) 500 mg PO DAILY [facility] Last Admin: 09/12/16 09:23 Dose: 500 mg Baclofen (Lioresal -) 10 mg PO DAILY [facility] Last Admin: 09/12/16 09:23 Dose: 10 mg Bisacodyl (Dulcolax -) 5 mg PO DAILY PRN PRN Reason: CONSTIPATION Cefuroxime Axetil (Ceftin -) 500 mg PO BID [facility] Last Admin: 09/12/16 21:44 Dose: 500 mg Citalopram Hydrobromide (Celexa -) 20 mg PO DAILY [facility] Last Admin: 09/12/16 09:23 Dose: Not Given Collagenase (Santyl -) 1 applic TP DAILY [facility] Last Admin: 09/12/16 09:24 Dose: 1 applic Diazepam (Valium -) 5 mg PO HS [facility] Last Admin: 09/12/16 21:45 Dose: Not Given Docusate Sodium (Colace -) 100 mg PO DAILY [facility] Last Admin: 09/12/16 09:24 Dose: 100 mg Enoxaparin Sodium (Lovenox -) 40 mg SQ DAILY [facility] Last Admin: 09/12/16 09:23 Dose: 40 mg Magnesium Hydroxide (Milk Of Magnesia -) 30 ml PO Q8H PRN PRN Reason: INDIGESTION Metoprolol Tartrate (Lopressor Injection -) 5 mg IVPUSH Q4H PRN PRN Reason: HYPERTENSION Last Admin: 09/09/16 13:55 Dose: 5 mg Nystatin/Triamcinolone Acetonide (Mycolog Ii Cream -) 1 applic TP BID [facility] Last Admin: 09/12/16 21:44 Dose: 1 applic Polyethylene Glycol (Miralax (For Daily Use) -) 17 gm PO DAILY [facility] Last Admin: 09/12/16 09:24 Dose: Not Given Prednisone (Deltasone -) 20 mg PO DAILY [facility] Last Admin: 09/12/16 09:23 Dose: 20 mg Senna (Senna -) 1 tab PO HS [facility] Last Admin: 09/12/16 21:45 Dose: Not Given Sodium Phosphate (Fleet Adult Rectal Enema -) 133 ml RC PRN PRN Zinc Sulfate (Orazinc -) 220 mg PO DAILY [facility] Last Admin: 09/12/16 09:23 Dose: 220 mg - Objective Vital Signs: Vital Signs Temperature 98.8 F 09/13/16 06:00 Pulse Rate 77 09/13/16 06:00 Respiratory Rate 20 09/13/16 06:00 Blood Pressure 91/61 09/13/16 06:00 O2 Sat by Pulse Oximetry (%) 94 L 09/12/16 21:00 Cardiovascular: Yes: S1, S2 Respiratory: Yes: Diminished, On Nasal O2 Gastrointestinal: Yes: Normal Bowel Sounds, Soft Labs: CBC, BMP 09/11/16 06:05 09/11/16 06:05 INR, PTT INR 1.18 (0.82-1.09) H 08/31/16 16:15 Problem List - Problems (1) Breast CA Assessment/Plan: R/O RECURRENT CANCER ONCOLOGY CONSULT NOTED BIOPSY POSITIVE-- mammary carcinoma- E2BP +, Pr+, Her-2 negative . --D/W PT CT AND BONE SCAN CA27.29 Laboratory Tests 09/02/16 11:00 CA 27-29 55 H Code(s): C50.919 - MALIGNANT NEOPLASM OF UNSP SITE OF UNSPECIFIED FEMALE BREAST (2) COPD (chronic obstructive pulmonary disease) Assessment/Plan: NEBS MONITOR SAT ON O2 Code(s): J44.9 - CHRONIC OBSTRUCTIVE PULMONARY DISEASE, UNSPECIFIED (3) Spinal cord compression due to malignant neoplasm metastatic to spine Assessment/Plan: BIOPSY POSITIVE----D/W PT CT AND BONE SCAN Code(s): G95.20 - UNSPECIFIED CORD COMPRESSION C79.51 - SECONDARY MALIGNANT NEOPLASM OF BONE (4) Thoracic spine fracture Assessment/Plan: NS CONSULT NOTED AND APPRECIATED ONCOLOGY Code(s): S22.009A - UNSP FRACTURE OF UNSP THORACIC VERTEBRA, INIT FOR CLOS FX (5) Thoracic spine tumor Assessment/Plan: ABOVE Code(s): D49.2 - NEOPLASM OF UNSP BEHAVIOR OF BONE, SOFT TISSUE, AND SKIN
[2016-09-13] MEDS: predniSONE 20 MG TABLET (UD) PO SCH (10:49)
[2016-09-13] MEDS: DOCUSATE SODIUM 100 MG CAPSULE (FP) PO SCH (10:49)
[2016-09-13] MEDS: BACLOFEN 10 MG TABLET (FP) PO SCH (10:50)
[2016-09-13] MEDS: ZINC SULFATE 220 MG CAPSULE (FP) PO SCH (10:50)
[2016-09-13] MEDS: CITALOPRAM HYDROBROMIDE 20 MG TABLET (FP) PO SCH (10:50)
[2016-09-13] MEDS: ASCORBIC ACID 500 MG TABLET (FP) PO SCH (10:50)
[2016-09-13] MEDS: CEFUROXIME AXETIL 500 MG TABLET PO SCH ×3 (10:50→21:46)
[2016-09-13] MEDS: ENOXAPARIN NA (PORCINE) 40 MG/0.4 ML DISP.SYRIN SQ SCH (10:50)
[2016-09-13] MEDS: NYSTATIN/TRIAMCINOLONE TOPICAL CREAM 15 GM TUBE TP SCH ×2 (10:51→21:47)
[2016-09-13] MEDS: POLYETHYLENE GLYCOL 3350 119 GM BTL PO SCH (10:51)
[2016-09-13] MEDS: COLLAGENASE CLOSTRIDIUM HIST. 30 GRAMS TUBE TP SCH (10:52)
--- NOTE | 2016-09-13 11:04 | PN ---
Progress Note, Physician History of Present Illness: PULMONARY ALERT,C/O COUGH,-SOB - Current Medication List Current Medications: Active Medications Acetaminophen (Tylenol -) 650 mg PO Q4H PRN PRN Reason: FEVER OR PAIN Last Admin: 09/12/16 21:43 Dose: 650 mg Albuterol Sulfate (Ventolin 0.083% Nebulizer Soln -) 1 amp NEB QIDR [facility] Last Admin: 09/13/16 06:15 Dose: 1 amp Amino Acids (Prosource No Carb Liquid Pkt) 30 ml PO BIDWM [facility] Last Admin: 09/13/16 08:13 Dose: 30 ml Ascorbic Acid (Vitamin C -) 500 mg PO DAILY [facility] Last Admin: 09/13/16 10:50 Dose: 500 mg Baclofen (Lioresal -) 10 mg PO DAILY [facility] Last Admin: 09/13/16 10:50 Dose: 10 mg Bisacodyl (Dulcolax -) 5 mg PO DAILY PRN PRN Reason: CONSTIPATION Cefuroxime Axetil (Ceftin -) 500 mg PO BID [facility] Last Admin: 09/13/16 10:50 Dose: Not Given Citalopram Hydrobromide (Celexa -) 20 mg PO DAILY [facility] Last Admin: 09/13/16 10:50 Dose: Not Given Collagenase (Santyl -) 1 applic TP DAILY [facility] Last Admin: 09/13/16 10:52 Dose: 1 applic Diazepam (Valium -) 5 mg PO HS [facility] Last Admin: 09/12/16 21:45 Dose: Not Given Docusate Sodium (Colace -) 100 mg PO DAILY [facility] Last Admin: 09/13/16 10:49 Dose: 100 mg Enoxaparin Sodium (Lovenox -) 40 mg SQ DAILY [facility] Last Admin: 09/13/16 10:50 Dose: 40 mg Magnesium Hydroxide (Milk Of Magnesia -) 30 ml PO Q8H PRN PRN Reason: INDIGESTION Metoprolol Tartrate (Lopressor Injection -) 5 mg IVPUSH Q4H PRN PRN Reason: HYPERTENSION Last Admin: 09/09/16 13:55 Dose: 5 mg Nystatin/Triamcinolone Acetonide (Mycolog Ii Cream -) 1 applic TP BID [facility] Last Admin: 09/13/16 10:51 Dose: 1 applic Polyethylene Glycol (Miralax (For Daily Use) -) 17 gm PO DAILY [facility] Last Admin: 09/13/16 10:51 Dose: Not Given Prednisone (Deltasone -) 20 mg PO DAILY [facility] Last Admin: 09/13/16 10:49 Dose: 20 mg Senna (Senna -) 1 tab PO HS [facility] Last Admin: 09/12/16 21:45 Dose: Not Given Sodium Phosphate (Fleet Adult Rectal Enema -) 133 ml RC PRN PRN Zinc Sulfate (Orazinc -) 220 mg PO DAILY [facility] Last Admin: 09/13/16 10:50 Dose: 220 mg - Objective Vital Signs: Vital Signs Temperature 98.0 F 09/13/16 08:00 Pulse Rate 116 H 09/13/16 08:00 Respiratory Rate 20 09/13/16 08:00 Blood Pressure 94/47 09/13/16 08:00 O2 Sat by Pulse Oximetry (%) 96 09/13/16 08:00 Constitutional: Yes: Calm, Thin Eyes: Yes: WNL HENT: Yes: WNL Neck: Yes: WNL Cardiovascular: Yes: Regular Rate and Rhythm, S1, S2 Respiratory: Yes: Rhonchi (SCATTERED RHONCHI) Gastrointestinal: Yes: Normal Bowel Sounds, Soft Extremities: Yes: WNL Edema: No Labs: CBC, BMP 09/11/16 06:05 09/11/16 06:05 INR, PTT INR 1.18 (0.82-1.09) H 08/31/16 16:15 Problem List - Problems (1) COPD exacerbation Code(s): J44.1 - CHRONIC OBSTRUCTIVE PULMONARY DISEASE W (ACUTE) EXACERBATION (2) Hypoxia Code(s): R09.02 - HYPOXEMIA (3) Pneumonia Code(s): J18.9 - PNEUMONIA, UNSPECIFIED ORGANISM Qualifiers: Pneumonia type: due to unspecified organism Lung location: unspecified part of lung (4) Acute respiratory failure with hypoxemia Code(s): J96.01 - ACUTE RESPIRATORY FAILURE WITH HYPOXIA (5) Breast CA Code(s): C50.919 - MALIGNANT NEOPLASM OF UNSP SITE OF UNSPECIFIED FEMALE BREAST Assessment/Plan IMP ACUTE HYPOXEMIC RESPIRATORY FAILURE IMPROVED COPD EXACERBATION PNEUMONIA BRONCHITIS METASTATIC BREAST CA LOWER EXTREMITY PARALYSIS SPINAL METS CHEST WALLL METS PLAN ANTIBIOTICS INHALED BRONCHODILATORS O2 TO MAINTAIN O2 SAT 90% RT TO CHEST WALL DR FOUNTAIN Problem List - Problems (1) COPD exacerbation Code(s): J44.1 - CHRONIC OBSTRUCTIVE PULMONARY DISEASE W (ACUTE) EXACERBATION (2) Hypoxia Code(s): R09.02 - HYPOXEMIA (3) Pneumonia Code(s): J18.9 - PNEUMONIA, UNSPECIFIED ORGANISM Qualifiers: Pneumonia type: due to unspecified organism Lung location: unspecified part of lung (4) Acute respiratory failure with hypoxemia Code(s): J96.01 - ACUTE RESPIRATORY FAILURE WITH HYPOXIA (5) Breast CA Code(s): C50.919 - MALIGNANT NEOPLASM OF UNSP SITE OF UNSPECIFIED FEMALE BREAST
[2016-09-13] MEDS: ACETAMINOPHEN 325 MG TABLET (FP) PO PRN ×2 (12:58→21:46)
[2016-09-13] MEDS ORDERED: MAGNESIUM HYDROX 2400MG/30ML ORAL SUSPENSION 30 ML CUP PO PRN (19:45)
[2016-09-13] MEDS ORDERED: SODIUM PHOSPHATE/NA BIPHOS 133 ML ENEMA RC PRN (19:45)
[2016-09-13] MEDS ORDERED: BISACODYL 5 MG TABLET.DR (FP) PO PRN (19:45)
[2016-09-13] MEDS: SENNOSIDES 8.6MG TABLET (FP) PO SCH (21:46)
[2016-09-13] MEDS: diazePAM 5 MG TABLET PO SCH ×2 (21:46→21:53)
[2016-09-14] MEDS: ALBUTEROL SO4 0.083% IH SOL 2.5 MG/3 ML VIAL.NEB. NEB SCH ×4 (05:15→18:00)
[2016-09-14] MEDS: ACETAMINOPHEN 325 MG TABLET (FP) PO PRN ×3 (06:07→20:19)
[2016-09-14] MEDS ORDERED: PT OWN MED DRAWER 7, Y5N ONE ×2 (08:56→11:37)
[2016-09-14] MEDS: CITALOPRAM HYDROBROMIDE 20 MG TABLET (FP) PO SCH (09:02)
[2016-09-14] MEDS: DOCUSATE SODIUM 100 MG CAPSULE (FP) PO SCH (09:02)
[2016-09-14] MEDS: ZINC SULFATE 220 MG CAPSULE (FP) PO SCH (09:02)
[2016-09-14] MEDS: AMINO ACIDS/PROTEIN HYDROLYS 30 ML LIQUID.PKT PO SCH ×2 (09:02→16:31)
[2016-09-14] MEDS: CEFUROXIME AXETIL 500 MG TABLET PO SCH ×2 (09:02→21:10)
[2016-09-14] MEDS: BACLOFEN 10 MG TABLET (FP) PO SCH ×2 (09:02→11:35)
[2016-09-14] MEDS: NYSTATIN/TRIAMCINOLONE TOPICAL CREAM 15 GM TUBE TP SCH ×2 (09:02→21:10)
[2016-09-14] MEDS: ENOXAPARIN NA (PORCINE) 40 MG/0.4 ML DISP.SYRIN SQ SCH (09:03)
[2016-09-14] MEDS: predniSONE 20 MG TABLET (UD) PO SCH (09:03)
[2016-09-14] MEDS: ASCORBIC ACID 500 MG TABLET (FP) PO SCH (09:03)
[2016-09-14] MEDS: POLYETHYLENE GLYCOL 3350 119 GM BTL PO SCH (09:12)
[2016-09-14] MEDS: COLLAGENASE CLOSTRIDIUM HIST. 30 GRAMS TUBE TP SCH (09:12)
--- NOTE | 2016-09-14 11:06 | PN ---
Progress Note (short form) - Note Progress Note: Feels overall better. Some dry cough. No acute events overnight. Intake & Output 09/11/16 09/12/16 09/13/16 09/14/16 23:59 23:59 23:59 23:59 Intake Total 350 1000 1300 0 Balance 350 1000 1300 0 Last Vital Signs Temp Pulse Resp BP Pulse Ox 98.8 F 105 H 20 81/59 93 L 09/14/16 10:00 09/14/16 10:00 09/14/16 10:00 09/14/16 10:00 09/13/16 21:00 Active Medications Acetaminophen (Tylenol -) 650 mg PO Q4H PRN PRN Reason: FEVER OR PAIN Last Admin: 09/14/16 06:07 Dose: 650 mg Albuterol Sulfate (Ventolin 0.083% Nebulizer Soln -) 1 amp NEB QIDR [facility] Last Admin: 09/14/16 05:15 Dose: Not Given Amino Acids (Prosource No Carb Liquid Pkt) 30 ml PO BIDWM [facility] Last Admin: 09/14/16 09:02 Dose: 30 ml Ascorbic Acid (Vitamin C -) 500 mg PO DAILY [facility] Last Admin: 09/14/16 09:03 Dose: 500 mg Baclofen (Lioresal -) 10 mg PO DAILY [facility] Last Admin: 09/14/16 09:02 Dose: Not Given Bisacodyl (Dulcolax -) 5 mg PO DAILY PRN PRN Reason: CONSTIPATION Cefuroxime Axetil (Ceftin -) 500 mg PO BID [facility] Last Admin: 09/14/16 09:02 Dose: 500 mg Citalopram Hydrobromide (Celexa -) 20 mg PO DAILY [facility] Last Admin: 09/14/16 09:02 Dose: Not Given Collagenase (Santyl -) 1 applic TP DAILY [facility] Last Admin: 09/14/16 09:12 Dose: 1 applic Diazepam (Valium -) 5 mg PO HS [facility] Last Admin: 09/13/16 21:53 Dose: Not Given Docusate Sodium (Colace -) 100 mg PO DAILY [facility] Last Admin: 09/14/16 09:02 Dose: 100 mg Enoxaparin Sodium (Lovenox -) 40 mg SQ DAILY [facility] Last Admin: 09/14/16 09:03 Dose: 40 mg Magnesium Hydroxide (Milk Of Magnesia -) 30 ml PO Q8H PRN PRN Reason: INDIGESTION Metoprolol Tartrate (Lopressor Injection -) 5 mg IVPUSH Q4H PRN PRN Reason: HYPERTENSION Last Admin: 09/09/16 13:55 Dose: 5 mg Nystatin/Triamcinolone Acetonide (Mycolog Ii Cream -) 1 applic TP BID [facility] Last Admin: 09/14/16 09:02 Dose: 1 applic Polyethylene Glycol (Miralax (For Daily Use) -) 17 gm PO DAILY [facility] Last Admin: 09/14/16 09:12 Dose: Not Given Prednisone (Deltasone -) 20 mg PO DAILY [facility] Last Admin: 09/14/16 09:03 Dose: Not Given Senna (Senna -) 1 tab PO HS [facility] Last Admin: 09/13/16 21:46 Dose: 1 tab Sodium Phosphate (Fleet Adult Rectal Enema -) 133 ml RC PRN PRN Zinc Sulfate (Orazinc -) 220 mg PO DAILY [facility] Last Admin: 09/14/16 09:02 Dose: 220 mg - Objective Vital Signs: Constitutional: Yes: NAD Eyes: Yes: WNL HENT: Yes: WNL Neck: Yes: WNL Cardiovascular: Yes: Regular Rate and Rhythm, S1, S2 Respiratory: Yes: Scattered Rhonchi Gastrointestinal: Yes: Normal Bowel Sounds, Soft Extremities: Yes: WNL Edema: No Labs: Problem List - Problems (1) COPD exacerbation Code(s): J44.1 - CHRONIC OBSTRUCTIVE PULMONARY DISEASE W (ACUTE) EXACERBATION (2) Hypoxia Code(s): R09.02 - HYPOXEMIA (3) Pneumonia Code(s): J18.9 - PNEUMONIA, UNSPECIFIED ORGANISM Qualifiers: Pneumonia type: due to unspecified organism Lung location: unspecified part of lung (4) Acute respiratory failure with hypoxemia Code(s): J96.01 - ACUTE RESPIRATORY FAILURE WITH HYPOXIA (5) Breast CA Code(s): C50.919 - MALIGNANT NEOPLASM OF UNSP SITE OF UNSPECIFIED FEMALE BREAST Assessment/Plan IMP ACUTE HYPOXEMIC RESPIRATORY FAILURE IMPROVED COPD EXACERBATION PNEUMONIA BRONCHITIS METASTATIC BREAST CA LOWER EXTREMITY PARALYSIS SPINAL METS CHEST WALLL METS PLAN PO ABX Prednisone BD TX RT TO CHEST WALL Dr Conde
--- NOTE | 2016-09-14 14:29 | PN ---
Progress Note, Physician Chief Complaint: METASTATIC BREAST CA History of Present Illness: LAYING IN BED, COMPLAINING OF BACK PAIN. OTHERWISE COMFORTABLE. - Current Medication List Current Medications: Active Medications Acetaminophen (Tylenol -) 650 mg PO Q4H PRN PRN Reason: FEVER OR PAIN Last Admin: 09/14/16 13:12 Dose: 650 mg Albuterol Sulfate (Ventolin 0.083% Nebulizer Soln -) 1 amp NEB QIDR [facility] Last Admin: 09/14/16 12:18 Dose: Not Given Amino Acids (Prosource No Carb Liquid Pkt) 30 ml PO BIDWM [facility] Last Admin: 09/14/16 09:02 Dose: 30 ml Ascorbic Acid (Vitamin C -) 500 mg PO DAILY [facility] Last Admin: 09/14/16 09:03 Dose: 500 mg Baclofen (Lioresal -) 10 mg PO DAILY [facility] Last Admin: 09/14/16 11:35 Dose: 10 mg Bisacodyl (Dulcolax -) 5 mg PO DAILY PRN PRN Reason: CONSTIPATION Cefuroxime Axetil (Ceftin -) 500 mg PO BID [facility] Last Admin: 09/14/16 09:02 Dose: 500 mg Citalopram Hydrobromide (Celexa -) 20 mg PO DAILY [facility] Last Admin: 09/14/16 09:02 Dose: Not Given Collagenase (Santyl -) 1 applic TP DAILY [facility] Last Admin: 09/14/16 09:12 Dose: 1 applic Diazepam (Valium -) 5 mg PO HS [facility] Last Admin: 09/13/16 21:53 Dose: Not Given Docusate Sodium (Colace -) 100 mg PO DAILY [facility] Last Admin: 09/14/16 09:02 Dose: 100 mg Enoxaparin Sodium (Lovenox -) 40 mg SQ DAILY [facility] Last Admin: 09/14/16 09:03 Dose: 40 mg Magnesium Hydroxide (Milk Of Magnesia -) 30 ml PO Q8H PRN PRN Reason: INDIGESTION Metoprolol Tartrate (Lopressor Injection -) 5 mg IVPUSH Q4H PRN PRN Reason: HYPERTENSION Last Admin: 09/09/16 13:55 Dose: 5 mg Nystatin/Triamcinolone Acetonide (Mycolog Ii Cream -) 1 applic TP BID [facility] Last Admin: 09/14/16 09:02 Dose: 1 applic Polyethylene Glycol (Miralax (For Daily Use) -) 17 gm PO DAILY [facility] Last Admin: 09/14/16 09:12 Dose: Not Given Prednisone (Deltasone -) 20 mg PO DAILY [facility] Last Admin: 09/14/16 09:03 Dose: Not Given Senna (Senna -) 1 tab PO HS [facility] Last Admin: 09/13/16 21:46 Dose: 1 tab Sodium Phosphate (Fleet Adult Rectal Enema -) 133 ml RC PRN PRN Zinc Sulfate (Orazinc -) 220 mg PO DAILY [facility] Last Admin: 09/14/16 09:02 Dose: 220 mg - Objective Vital Signs: Vital Signs Temperature 98.8 F 09/14/16 10:00 Pulse Rate 105 H 09/14/16 10:00 Respiratory Rate 20 09/14/16 10:00 Blood Pressure 81/59 09/14/16 10:00 O2 Sat by Pulse Oximetry (%) 94 L 09/14/16 09:00 Constitutional: Yes: Well Nourished, No Distress, Calm Cardiovascular: Yes: Regular Rate and Rhythm Respiratory: Yes: Regular Gastrointestinal: Yes: Normal Bowel Sounds Musculoskeletal: Yes: Back Pain Labs: CBC, BMP 09/11/16 06:05 09/11/16 06:05 INR, PTT INR 1.18 (0.82-1.09) H 08/31/16 16:15 Problem List - Problems (1) Breast CA Code(s): C50.919 - MALIGNANT NEOPLASM OF UNSP SITE OF UNSPECIFIED FEMALE BREAST (2) COPD (chronic obstructive pulmonary disease) Assessment/Plan: STABLE Code(s): J44.9 - CHRONIC OBSTRUCTIVE PULMONARY DISEASE, UNSPECIFIED (3) Spinal cord compression due to malignant neoplasm metastatic to spine Assessment/Plan: BACLOFEN ORDERED, AWAITING BONE SCAN. RADIATION VS CHEMOTHERAPY Code(s): G95.20 - UNSPECIFIED CORD COMPRESSION C79.51 - SECONDARY MALIGNANT NEOPLASM OF BONE Assessment/Plan Awaiting Bone scan RT vs chemo as per oncology her out patient oncologist is Dr John Ledezma at [facility]
[2016-09-14] MEDS: diazePAM 5 MG TABLET PO SCH (21:10)
[2016-09-14] MEDS: SENNOSIDES 8.6MG TABLET (FP) PO SCH (21:10)
[2016-09-15] MEDS: ALBUTEROL SO4 0.083% IH SOL 2.5 MG/3 ML VIAL.NEB. NEB SCH ×5 (01:58→23:14)
[2016-09-15] MEDS: ACETAMINOPHEN 325 MG TABLET (FP) PO PRN ×2 (03:00→19:08)
[2016-09-15] MEDS: AMINO ACIDS/PROTEIN HYDROLYS 30 ML LIQUID.PKT PO SCH ×2 (08:00→18:07)
--- NOTE | 2016-09-15 11:06 | PN ---
Progress Note, Physician Chief Complaint: patient drank the po contrast and does not want iv contrast i explained to her that she should have with iv contrast for better imaging and detection of lesions but she refused, she says she will have ct scan with oral contrast only so plan is to send her down for ct scan abdomen oral contrast complaining of back pain s/p chest wall lesion excision - Current Medication List Current Medications: Active Medications Acetaminophen (Tylenol -) 650 mg PO Q4H PRN PRN Reason: FEVER OR PAIN Last Admin: 09/15/16 03:00 Dose: 650 mg Albuterol Sulfate (Ventolin 0.083% Nebulizer Soln -) 1 amp NEB QIDR [facility] Last Admin: 09/15/16 06:57 Dose: Not Given Amino Acids (Prosource No Carb Liquid Pkt) 30 ml PO BIDWM [facility] Last Admin: 09/14/16 16:31 Dose: 30 ml Ascorbic Acid (Vitamin C -) 500 mg PO DAILY [facility] Last Admin: 09/14/16 09:03 Dose: 500 mg Baclofen (Lioresal -) 10 mg PO DAILY [facility] Last Admin: 09/14/16 11:35 Dose: 10 mg Bisacodyl (Dulcolax -) 5 mg PO DAILY PRN PRN Reason: CONSTIPATION Cefuroxime Axetil (Ceftin -) 500 mg PO BID [facility] Last Admin: 09/14/16 21:10 Dose: 500 mg Citalopram Hydrobromide (Celexa -) 20 mg PO DAILY [facility] Last Admin: 09/14/16 09:02 Dose: Not Given Collagenase (Santyl -) 1 applic TP DAILY [facility] Last Admin: 09/14/16 09:12 Dose: 1 applic Diazepam (Valium -) 5 mg PO HS [facility] Last Admin: 09/14/16 21:10 Dose: Not Given Docusate Sodium (Colace -) 100 mg PO DAILY [facility] Last Admin: 09/14/16 09:02 Dose: 100 mg Enoxaparin Sodium (Lovenox -) 40 mg SQ DAILY [facility] Last Admin: 09/14/16 09:03 Dose: 40 mg Magnesium Hydroxide (Milk Of Magnesia -) 30 ml PO Q8H PRN PRN Reason: INDIGESTION Metoprolol Tartrate (Lopressor Injection -) 5 mg IVPUSH Q4H PRN PRN Reason: HYPERTENSION Last Admin: 09/09/16 13:55 Dose: 5 mg Nystatin/Triamcinolone Acetonide (Mycolog Ii Cream -) 1 applic TP BID [facility] Last Admin: 09/14/16 21:10 Dose: 1 applic Polyethylene Glycol (Miralax (For Daily Use) -) 17 gm PO DAILY [facility] Last Admin: 09/14/16 09:12 Dose: Not Given Prednisone (Deltasone -) 20 mg PO DAILY [facility] Last Admin: 09/14/16 09:03 Dose: Not Given Senna (Senna -) 1 tab PO HS [facility] Last Admin: 09/14/16 21:10 Dose: 1 tab Sodium Phosphate (Fleet Adult Rectal Enema -) 133 ml RC PRN PRN Zinc Sulfate (Orazinc -) 220 mg PO DAILY [facility] Last Admin: 09/14/16 09:02 Dose: 220 mg - Objective Vital Signs: Vital Signs Temperature 98.4 F 09/15/16 06:12 Pulse Rate 66 09/15/16 06:12 Respiratory Rate 18 09/15/16 06:12 Blood Pressure 97/56 09/15/16 06:12 O2 Sat by Pulse Oximetry (%) 95 09/14/16 22:00 Constitutional: Yes: Calm Neck: Yes: Trachea Midline, Other Cardiovascular: Yes: Regular Rate and Rhythm, S1, S2 Respiratory: Yes: Diminished (on left side), Other (philomena on left upper chest wall) Gastrointestinal: Yes: Normal Bowel Sounds, Soft Extremities: Yes: Other (flexed) Edema: No Labs: CBC, BMP 09/11/16 06:05 09/11/16 06:05 INR, PTT INR 1.18 (0.82-1.09) H 08/31/16 16:15 Problem List - Problems (1) Breast CA Assessment/Plan: mammary carcinoma- results of biopsy to get ctscan of abdomen right now oncology on board dvt ppx Code(s): C50.919 - MALIGNANT NEOPLASM OF UNSP SITE OF UNSPECIFIED FEMALE BREAST (2) Hyponatremia Assessment/Plan: stable Code(s): E87.1 - HYPO-OSMOLALITY AND HYPONATREMIA (3) COPD exacerbation Assessment/Plan: prednisone taper to 10mg daily then 5mg then stop Code(s): J44.1 - CHRONIC OBSTRUCTIVE PULMONARY DISEASE W (ACUTE) EXACERBATION (4) Pneumonia Assessment/Plan: po abx course Code(s): J18.9 - PNEUMONIA, UNSPECIFIED ORGANISM Qualifiers: Laterality: left Lung location: lower lobe of lung (5) Atrial fibrillation Assessment/Plan: now in sinus no medication needed currently on lovenox will change to NOAC once no more surgical interventions are required Code(s): I48.91 - UNSPECIFIED ATRIAL FIBRILLATION Qualifiers: Atrial fibrillation type: paroxysmal Qualified Code(s): I48.0 - Paroxysmal atrial fibrillation
[2016-09-15] MEDS ORDERED: predniSONE 10 MG TABLET (UD) PO ONE (11:40)
--- NOTE | 2016-09-15 13:01 | PN ---
Progress Note, Physician History of Present Illness: PULMONARY ALERT,NAD,C/O MILD COUGH YELLOW SPUTUM - Current Medication List Current Medications: Active Medications Acetaminophen (Tylenol -) 650 mg PO Q4H PRN PRN Reason: FEVER OR PAIN Last Admin: 09/15/16 03:00 Dose: 650 mg Albuterol Sulfate (Ventolin 0.083% Nebulizer Soln -) 1 amp NEB QIDR [facility] Last Admin: 09/15/16 12:50 Dose: Not Given Amino Acids (Prosource No Carb Liquid Pkt) 30 ml PO BIDWM [facility] Last Admin: 09/15/16 08:00 Dose: Not Given Ascorbic Acid (Vitamin C -) 500 mg PO DAILY [facility] Last Admin: 09/14/16 09:03 Dose: 500 mg Baclofen (Lioresal -) 10 mg PO DAILY [facility] Last Admin: 09/14/16 11:35 Dose: 10 mg Bisacodyl (Dulcolax -) 5 mg PO DAILY PRN PRN Reason: CONSTIPATION Cefuroxime Axetil (Ceftin -) 500 mg PO BID [facility] Last Admin: 09/14/16 21:10 Dose: 500 mg Citalopram Hydrobromide (Celexa -) 20 mg PO DAILY [facility] Last Admin: 09/14/16 09:02 Dose: Not Given Collagenase (Santyl -) 1 applic TP DAILY [facility] Last Admin: 09/14/16 09:12 Dose: 1 applic Diazepam (Valium -) 5 mg PO HS [facility] Last Admin: 09/14/16 21:10 Dose: Not Given Docusate Sodium (Colace -) 100 mg PO DAILY [facility] Last Admin: 09/14/16 09:02 Dose: 100 mg Enoxaparin Sodium (Lovenox -) 40 mg SQ DAILY [facility] Last Admin: 09/14/16 09:03 Dose: 40 mg Magnesium Hydroxide (Milk Of Magnesia -) 30 ml PO Q8H PRN PRN Reason: INDIGESTION Nystatin/Triamcinolone Acetonide (Mycolog Ii Cream -) 1 applic TP BID [facility] Last Admin: 09/14/16 21:10 Dose: 1 applic Polyethylene Glycol (Miralax (For Daily Use) -) 17 gm PO DAILY [facility] Last Admin: 09/14/16 09:12 Dose: Not Given Prednisone (Deltasone -) 5 mg PO DAILY [facility] Stop: 09/18/16 10:01 Senna (Senna -) 1 tab PO HS [facility] Last Admin: 09/14/16 21:10 Dose: 1 tab Sodium Phosphate (Fleet Adult Rectal Enema -) 133 ml RC PRN PRN Zinc Sulfate (Orazinc -) 220 mg PO DAILY [facility] Last Admin: 09/14/16 09:02 Dose: 220 mg - Objective Vital Signs: Vital Signs Temperature 97.9 F 09/15/16 10:00 Pulse Rate 88 09/15/16 10:00 Respiratory Rate 18 09/15/16 10:00 Blood Pressure 125/59 09/15/16 10:00 O2 Sat by Pulse Oximetry (%) 95 09/14/16 22:00 Constitutional: Yes: Calm, Thin Eyes: Yes: WNL HENT: Yes: WNL Neck: Yes: WNL Cardiovascular: Yes: Regular Rate and Rhythm, S1, S2 Respiratory: Yes: Wheezes (SCATTERED RADHA WHEEZES) Gastrointestinal: Yes: Normal Bowel Sounds, Soft Extremities: Yes: WNL Edema: No Labs: CBC, BMP 09/11/16 06:05 09/11/16 06:05 INR, PTT INR 1.18 (0.82-1.09) H 08/31/16 16:15 Problem List - Problems (1) COPD exacerbation Code(s): J44.1 - CHRONIC OBSTRUCTIVE PULMONARY DISEASE W (ACUTE) EXACERBATION (2) Hypoxia Code(s): R09.02 - HYPOXEMIA (3) Pneumonia Code(s): J18.9 - PNEUMONIA, UNSPECIFIED ORGANISM Qualifiers: Laterality: left Lung location: lower lobe of lung (4) Acute respiratory failure with hypoxemia Code(s): J96.01 - ACUTE RESPIRATORY FAILURE WITH HYPOXIA (5) Breast CA Code(s): C50.919 - MALIGNANT NEOPLASM OF UNSP SITE OF UNSPECIFIED FEMALE BREAST Assessment/Plan IMP ACUTE HYPOXEMIC RESPIRATORY FAILURE IMPROVED COPD EXACERBATION PNEUMONIA BRONCHITIS METASTATIC BREAST CA LOWER EXTREMITY PARALYSIS SPINAL METS CHEST WALL METS PLAN ANTIBIOTICS INHALED BRONCHODILATORS O2 TO MAINTAIN O2 SAT 90% RT TO CHEST WALL PREDNISONE DR FOUNTAIN Problem List - Problems (1) COPD exacerbation Code(s): J44.1 - CHRONIC OBSTRUCTIVE PULMONARY DISEASE W (ACUTE) EXACERBATION (2) Hypoxia Code(s): R09.02 - HYPOXEMIA (3) Pneumonia Code(s): J18.9 - PNEUMONIA, UNSPECIFIED ORGANISM Qualifiers: Pneumonia type: due to unspecified organism Lung location: unspecified part of lung (4) Acute respiratory failure with hypoxemia Code(s): J96.01 - ACUTE RESPIRATORY FAILURE WITH HYPOXIA (5) Breast CA Code(s): C50.919 - MALIGNANT NEOPLASM OF UNSP SITE OF UNSPECIFIED FEMALE BREAST
[2016-09-15] MEDS: BACLOFEN 10 MG TABLET (FP) PO SCH (13:33)
[2016-09-15] MEDS: ZINC SULFATE 220 MG CAPSULE (FP) PO SCH (13:33)
[2016-09-15] MEDS: DOCUSATE SODIUM 100 MG CAPSULE (FP) PO SCH (13:33)
[2016-09-15] MEDS: ASCORBIC ACID 500 MG TABLET (FP) PO SCH (13:34)
[2016-09-15] MEDS: CEFUROXIME AXETIL 500 MG TABLET PO SCH ×2 (13:35→21:38)
[2016-09-15] MEDS: predniSONE 20 MG TABLET (UD) PO SCH ×2 (13:36→13:54)
[2016-09-15] MEDS: CITALOPRAM HYDROBROMIDE 20 MG TABLET (FP) PO SCH (13:39)
[2016-09-15] MEDS: NYSTATIN/TRIAMCINOLONE TOPICAL CREAM 15 GM TUBE TP SCH ×2 (13:41→21:38)
[2016-09-15] MEDS: POLYETHYLENE GLYCOL 3350 119 GM BTL PO SCH (13:52)
[2016-09-15] MEDS: ENOXAPARIN NA (PORCINE) 40 MG/0.4 ML DISP.SYRIN SQ SCH (14:56)
[2016-09-15] MEDS: COLLAGENASE CLOSTRIDIUM HIST. 30 GRAMS TUBE TP SCH (17:20)
[2016-09-15] MEDS: diazePAM 5 MG TABLET PO SCH (21:38)
[2016-09-15] MEDS: SENNOSIDES 8.6MG TABLET (FP) PO SCH (21:38)
--- NOTE | 2016-09-15 22:08 | PN ---
Progress Note (short form) - Note Progress Note: PAtient seen and exained DEnies any complaints AFVSS Cor: RSR, No murmurs, No gallops Lungs: Clear to P&A Abd: Soft, Normal bowel sounds, No organomegaly Ext:No significant edema LAbs/Meds reviewed Home Medication List Medication Instructions Recorded Confirmed Type Albuterol 0.083% Nebulizer Bella 1 neb NEB QID PRN 08/31/16 08/31/16 History [Ventolin 0.083%] Amino Acids/Protein Hydrolys 30 ml PO BID 08/31/16 08/31/16 History [Pro-Stat Liquid] Amox-Tr/K Cl [Augmentin - 875Mg 1 tab PO BID 08/31/16 08/31/16 History Tablet] Ascorbic Acid [Vitamin C -] 500 mg PO DAILY 08/31/16 08/31/16 History Azithromycin [Zithromax -] 1 tab PO DAILY 08/31/16 08/31/16 History Baclofen 10 mg PO DAILY 08/31/16 08/31/16 History Calcium Carbonate/Vitamin D3 [Eq 1 each PO BID 08/31/16 08/31/16 History Calcium 500 + Vit D 400 Tab] Citalopram Hydrobromide [Celexa -] 20 mg PO DAILY 08/31/16 08/31/16 History Diazepam [Valium] 5 mg PO HS 08/31/16 08/31/16 History Docusate Sodium [Colace -] 100 mg PO DAILY 08/31/16 08/31/16 History Enoxaparin [Lovenox -] 40 mg SQ DAILY 08/31/16 08/31/16 History Guaifenesin [Robitussin -] 10 ml PO Q6H PRN 08/31/16 08/31/16 History Loperamide HCl [Imodium A-D] 2 mg PO PRN 08/31/16 08/31/16 History Magnesium Hydroxide [Milk of 400 mg PO PRN 08/31/16 08/31/16 History Magnesia] Na Phos,M-B/Na Phos,Di-Ba [Fleet 133 ml RC PRN 08/31/16 08/31/16 History Enema] Nystatin/Triamcinolone Top Cr 1 applic TP BID 08/31/16 08/31/16 History [Mycolog II Cream -] Sennosides [Senna] 8.6 mg PO HS 08/31/16 08/31/16 History Zinc Sulfate 220 mg PO DAILY 08/31/16 08/31/16 History Active Medications Generic Name Dose Route Start Last Admin Trade Name Freq PRN Reason Stop Dose Admin Acetaminophen 650 mg 09/07/16 16:27 09/12/16 04:26 Tylenol - PO 650 mg Q4H PRN Administration FEVER OR PAIN Albuterol Sulfate 1 amp 09/11/16 12:00 09/12/16 00:00 Ventolin 0.083% Nebulizer Soln - NEB 1 amp QIDR [facility] Administration Amino Acids 30 ml 09/07/16 17:30 09/11/16 17:34 Prosource No Carb Liquid Pkt PO Not Given BIDWM [facility] Ascorbic Acid 500 mg 09/08/16 10:00 09/11/16 09:45 Vitamin C - PO 500 mg DAILY [facility] Administration Baclofen 10 mg 09/08/16 10:00 09/11/16 09:45 Lioresal - PO 10 mg DAILY [facility] Administration Bisacodyl 5 mg 09/09/16 09:23 Dulcolax - PO DAILY PRN CONSTIPATION Cefuroxime Axetil 500 mg 09/08/16 22:00 09/11/16 21:27 Ceftin - PO 500 mg BID [facility] Administration Citalopram Hydrobromide 20 mg 09/08/16 10:00 09/11/16 09:46 Celexa - PO Not Given DAILY [facility] Collagenase 1 applic 09/08/16 10:00 09/11/16 12:40 Santyl - TP 1 applic DAILY [facility] Administration Diazepam 5 mg 09/07/16 22:00 09/11/16 21:28 Valium - PO Not Given [facility] Docusate Sodium 100 mg 09/08/16 10:00 09/11/16 09:46 Colace - PO 100 mg DAILY [facility] Administration Enoxaparin Sodium 40 mg 09/08/16 10:00 09/11/16 09:45 Lovenox - SQ 40 mg DAILY [facility] Administration Magnesium Hydroxide 30 ml 09/09/16 09:23 Milk Of Magnesia - PO Q8H PRN INDIGESTION Metoprolol Tartrate 5 mg 09/09/16 12:07 09/09/16 13:55 Lopressor Injection - IVPUSH 5 mg Q4H PRN Administration HYPERTENSION Nystatin/Triamcinolone Acetonide 1 applic 09/07/16 22:00 09/11/16 21:27 Mycolog Ii Cream - TP 1 applic BID [facility] Administration Polyethylene Glycol 17 gm 09/09/16 10:00 09/11/16 09:46 Miralax (For Daily Use) - PO 17 gm DAILY [facility] Administration Prednisone 20 mg 09/08/16 11:40 09/11/16 09:45 Deltasone - PO 20 mg DAILY [facility] Administration Senna 1 tab 09/07/16 22:00 09/11/16 21:27 Senna - PO 1 tab HS [facility] Administration Sodium Phosphate 133 ml 09/07/16 16:27 Fleet Adult Rectal Enema - RC PRN PRN Zinc Sulfate 220 mg 09/08/16 10:00 09/11/16 09:45 Orazinc - PO 220 mg DAILY [facility] Administration A/P 66 y/o patient with metastatic breast ca Bone mets, Chest wall recurrence. chronic Cord compression/paraplegia--Little chance of recovery from plegia PAtient had refused chemo/RT in past per daughter chest wall biopsy ER=,[place]+, Her2 neg. ? Zometa ? palliative RT had been on faslodex switch to aromasin?
[2016-09-16] MEDS: ACETAMINOPHEN 325 MG TABLET (FP) PO PRN ×4 (03:27→21:48)
[2016-09-16] MEDS: ALBUTEROL SO4 0.083% IH SOL 2.5 MG/3 ML VIAL.NEB. NEB SCH ×4 (06:45→23:20)
[2016-09-16] MEDS: AMINO ACIDS/PROTEIN HYDROLYS 30 ML LIQUID.PKT PO SCH ×2 (08:55→16:50)
[2016-09-16] MEDS: POLYETHYLENE GLYCOL 3350 119 GM BTL PO SCH (09:42)
[2016-09-16] MEDS: ZINC SULFATE 220 MG CAPSULE (FP) PO SCH (09:42)
[2016-09-16] MEDS: CEFUROXIME AXETIL 500 MG TABLET PO SCH ×2 (09:43→21:47)
[2016-09-16] MEDS: BACLOFEN 10 MG TABLET (FP) PO SCH (09:43)
[2016-09-16] MEDS: ENOXAPARIN NA (PORCINE) 40 MG/0.4 ML DISP.SYRIN SQ SCH (09:43)
[2016-09-16] MEDS: ASCORBIC ACID 500 MG TABLET (FP) PO SCH (09:43)
[2016-09-16] MEDS: DOCUSATE SODIUM 100 MG CAPSULE (FP) PO SCH (09:43)
[2016-09-16] MEDS: CITALOPRAM HYDROBROMIDE 20 MG TABLET (FP) PO SCH (09:44)
[2016-09-16] MEDS ORDERED: PT OWN MED DRAWER 7, Y5N ONE ×2 (11:32→20:21)
[2016-09-16] MEDS: NYSTATIN/TRIAMCINOLONE TOPICAL CREAM 15 GM TUBE TP SCH ×2 (11:35→21:47)
[2016-09-16] MEDS: COLLAGENASE CLOSTRIDIUM HIST. 30 GRAMS TUBE TP SCH (11:35)
[2016-09-16] MEDS ORDERED: ALBUTEROL SO4 0.083% IH SOL 2.5 MG/3 ML VIAL.NEB. NEB PRN (12:42)
--- NOTE | 2016-09-16 12:42 | PN ---
Progress Note, Physician History of Present Illness: pulmonary alert,feeling better,less cough - Current Medication List Current Medications: Active Medications Acetaminophen (Tylenol -) 650 mg PO Q4H PRN PRN Reason: FEVER OR PAIN Last Admin: 09/16/16 10:19 Dose: 650 mg Amino Acids (Prosource No Carb Liquid Pkt) 30 ml PO BIDWM [facility] Last Admin: 09/16/16 08:55 Dose: 30 ml Ascorbic Acid (Vitamin C -) 500 mg PO DAILY [facility] Last Admin: 09/16/16 09:43 Dose: 500 mg Baclofen (Lioresal -) 10 mg PO DAILY [facility] Last Admin: 09/16/16 09:43 Dose: 10 mg Bisacodyl (Dulcolax -) 5 mg PO DAILY PRN PRN Reason: CONSTIPATION Cefuroxime Axetil (Ceftin -) 500 mg PO BID [facility] Last Admin: 09/16/16 09:43 Dose: 500 mg Citalopram Hydrobromide (Celexa -) 20 mg PO DAILY [facility] Last Admin: 09/16/16 09:44 Dose: Not Given Collagenase (Santyl -) 1 applic TP DAILY [facility] Last Admin: 09/16/16 11:35 Dose: 1 applic Diazepam (Valium -) 5 mg PO HS [facility] Last Admin: 09/15/16 21:38 Dose: Not Given Docusate Sodium (Colace -) 100 mg PO DAILY [facility] Last Admin: 09/16/16 09:43 Dose: 100 mg Enoxaparin Sodium (Lovenox -) 40 mg SQ DAILY [facility] Last Admin: 09/16/16 09:43 Dose: 40 mg Magnesium Hydroxide (Milk Of Magnesia -) 30 ml PO Q8H PRN PRN Reason: INDIGESTION Nystatin/Triamcinolone Acetonide (Mycolog Ii Cream -) 1 applic TP BID [facility] Last Admin: 09/16/16 11:35 Dose: 1 applic Polyethylene Glycol (Miralax (For Daily Use) -) 17 gm PO DAILY [facility] Last Admin: 09/16/16 09:42 Dose: 17 gm Prednisone (Deltasone -) 5 mg PO DAILY [facility] Stop: 09/18/16 10:01 Senna (Senna -) 1 tab PO HS [facility] Last Admin: 09/15/16 21:38 Dose: 1 tab Sodium Phosphate (Fleet Adult Rectal Enema -) 133 ml RC PRN PRN Zinc Sulfate (Orazinc -) 220 mg PO DAILY [facility] Last Admin: 09/16/16 09:42 Dose: 220 mg - Objective Vital Signs: Vital Signs Temperature 98.0 F 09/16/16 10:00 Pulse Rate 91 H 09/16/16 11:44 Respiratory Rate 13 09/16/16 10:00 Blood Pressure 98/45 09/16/16 10:00 O2 Sat by Pulse Oximetry (%) 91 L 09/16/16 11:44 Constitutional: Yes: Calm, Thin Eyes: Yes: WNL HENT: Yes: WNL Neck: Yes: WNL Cardiovascular: Yes: Regular Rate and Rhythm, S1, S2 Respiratory: Yes: Rhonchi (few wheezes) Gastrointestinal: Yes: Normal Bowel Sounds, Soft Extremities: Yes: WNL Edema: No Neurological: Yes: Other (lower ext paraplegia) Labs: CBC, BMP - ....Imaging Chest X-ray: Report Reviewed, Image Reviewed (small left pleural effusion) Problem List - Problems (1) COPD exacerbation Code(s): J44.1 - CHRONIC OBSTRUCTIVE PULMONARY DISEASE W (ACUTE) EXACERBATION (2) Hypoxia Code(s): R09.02 - HYPOXEMIA (3) Pneumonia Code(s): J18.9 - PNEUMONIA, UNSPECIFIED ORGANISM Qualifiers: Laterality: left Lung location: lower lobe of lung (4) Acute respiratory failure with hypoxemia Code(s): J96.01 - ACUTE RESPIRATORY FAILURE WITH HYPOXIA (5) Breast CA Code(s): C50.919 - MALIGNANT NEOPLASM OF UNSP SITE OF UNSPECIFIED FEMALE BREAST Assessment/Plan IMP ACUTE HYPOXEMIC RESPIRATORY FAILURE IMPROVED COPD EXACERBATION PNEUMONIA BRONCHITIS METASTATIC BREAST CA LOWER EXTREMITY PARALYSIS SPINAL METS CHEST WALL METS PLAN ANTIBIOTICS INHALED BRONCHODILATORS O2 TO MAINTAIN O2 SAT 90% RT TO CHEST WALL PREDNISONE DR FOUNTAIN Problem List - Problems (1) COPD exacerbation Code(s): J44.1 - CHRONIC OBSTRUCTIVE PULMONARY DISEASE W (ACUTE) EXACERBATION (2) Hypoxia Code(s): R09.02 - HYPOXEMIA (3) Pneumonia Code(s): J18.9 - PNEUMONIA, UNSPECIFIED ORGANISM Qualifiers: Pneumonia type: due to unspecified organism Lung location: unspecified part of lung (4) Acute respiratory failure with hypoxemia Code(s): J96.01 - ACUTE RESPIRATORY FAILURE WITH HYPOXIA (5) Breast CA Code(s): C50.919 - MALIGNANT NEOPLASM OF UNSP SITE OF UNSPECIFIED FEMALE BREAST
[2016-09-16] MEDS: predniSONE 20 MG TABLET (UD) PO SCH (15:05)
--- NOTE | 2016-09-16 18:44 | PN ---
Progress Note, Physician Chief Complaint: METASTATIC BREAST CA History of Present Illness: LAYING IN BED, COMPLAINING OF BACK PAIN. OTHERWISE COMFORTABLE. - Current Medication List Current Medications: Active Medications Acetaminophen (Tylenol -) 650 mg PO Q4H PRN PRN Reason: FEVER OR PAIN Last Admin: 09/16/16 15:56 Dose: 650 mg Albuterol Sulfate (Ventolin 0.083% Nebulizer Soln -) 1 amp NEB Q4H PRN PRN Reason: SHORT OF BREATH/WHEEZING Albuterol Sulfate (Ventolin 0.083% Nebulizer Soln -) 1 amp NEB QIDR [facility] Last Admin: 09/16/16 17:41 Dose: 1 amp Amino Acids (Prosource No Carb Liquid Pkt) 30 ml PO BIDWM [facility] Last Admin: 09/16/16 16:50 Dose: 30 ml Ascorbic Acid (Vitamin C -) 500 mg PO DAILY [facility] Last Admin: 09/16/16 09:43 Dose: 500 mg Baclofen (Lioresal -) 10 mg PO DAILY [facility] Last Admin: 09/16/16 09:43 Dose: 10 mg Bisacodyl (Dulcolax -) 5 mg PO DAILY PRN PRN Reason: CONSTIPATION Cefuroxime Axetil (Ceftin -) 500 mg PO BID [facility] Last Admin: 09/16/16 09:43 Dose: 500 mg Citalopram Hydrobromide (Celexa -) 20 mg PO DAILY [facility] Last Admin: 09/16/16 09:44 Dose: Not Given Collagenase (Santyl -) 1 applic TP DAILY [facility] Last Admin: 09/16/16 11:35 Dose: 1 applic Diazepam (Valium -) 5 mg PO HS [facility] Last Admin: 09/15/16 21:38 Dose: Not Given Docusate Sodium (Colace -) 100 mg PO DAILY [facility] Last Admin: 09/16/16 09:43 Dose: 100 mg Enoxaparin Sodium (Lovenox -) 40 mg SQ DAILY [facility] Last Admin: 09/16/16 09:43 Dose: 40 mg Magnesium Hydroxide (Milk Of Magnesia -) 30 ml PO Q8H PRN PRN Reason: INDIGESTION Nystatin/Triamcinolone Acetonide (Mycolog Ii Cream -) 1 applic TP BID [facility] Last Admin: 09/16/16 11:35 Dose: 1 applic Polyethylene Glycol (Miralax (For Daily Use) -) 17 gm PO DAILY [facility] Last Admin: 09/16/16 09:42 Dose: 17 gm Prednisone (Deltasone -) 5 mg PO DAILY [facility] Stop: 09/18/16 10:01 Senna (Senna -) 1 tab PO HS [facility] Last Admin: 09/15/16 21:38 Dose: 1 tab Sodium Phosphate (Fleet Adult Rectal Enema -) 133 ml RC PRN PRN Zinc Sulfate (Orazinc -) 220 mg PO DAILY [facility] Last Admin: 09/16/16 09:42 Dose: 220 mg - Objective Vital Signs: Vital Signs Temperature 98.4 F 09/16/16 14:23 Pulse Rate 89 09/16/16 14:23 Respiratory Rate 20 09/16/16 14:23 Blood Pressure 94/42 09/16/16 14:23 O2 Sat by Pulse Oximetry (%) 91 L 09/16/16 11:44 Constitutional: Yes: Well Nourished, No Distress, Calm Cardiovascular: Yes: Regular Rate and Rhythm Respiratory: Yes: Regular Gastrointestinal: Yes: Normal Bowel Sounds Musculoskeletal: Yes: Back Pain Edema: No Peripheral Pulses WNL: Yes Labs: CBC, BMP 09/11/16 06:05 09/11/16 06:05 INR, PTT INR 1.18 (0.82-1.09) H 08/31/16 16:15 Problem List - Problems (1) Breast CA Assessment/Plan: CT ABDOMEN SHOWS MET LESION OF T12 AND LEFT ILIAC BONE. WILL ORDER BONE SCAN. 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
[2016-09-16] MEDS: SENNOSIDES 8.6MG TABLET (FP) PO SCH (21:47)
[2016-09-16] MEDS: diazePAM 5 MG TABLET PO SCH ×2 (21:48→21:52)
[2016-09-17] MEDS: ACETAMINOPHEN 325 MG TABLET (FP) PO PRN ×4 (01:38→21:22)
[2016-09-17] MEDS: ALBUTEROL SO4 0.083% IH SOL 2.5 MG/3 ML VIAL.NEB. NEB SCH ×2 (06:40→11:05)
[2016-09-17] MEDS ORDERED: PT OWN MED DRAWER 7, Y5N ONE ×2 (10:16→20:46)
[2016-09-17] MEDS: AMINO ACIDS/PROTEIN HYDROLYS 30 ML LIQUID.PKT PO SCH ×2 (10:19→17:39)
[2016-09-17] MEDS: ENOXAPARIN NA (PORCINE) 40 MG/0.4 ML DISP.SYRIN SQ SCH (10:19)
[2016-09-17] MEDS: POLYETHYLENE GLYCOL 3350 119 GM BTL PO SCH ×2 (10:19→10:30)
[2016-09-17] MEDS: DOCUSATE SODIUM 100 MG CAPSULE (FP) PO SCH (10:20)
[2016-09-17] MEDS: NYSTATIN/TRIAMCINOLONE TOPICAL CREAM 15 GM TUBE TP SCH ×2 (10:20→21:22)
[2016-09-17] MEDS: predniSONE 5 MG TABLET (UD) PO SCH (10:20)
[2016-09-17] MEDS: CITALOPRAM HYDROBROMIDE 20 MG TABLET (FP) PO SCH ×2 (10:20→10:30)
[2016-09-17] MEDS: COLLAGENASE CLOSTRIDIUM HIST. 30 GRAMS TUBE TP SCH (10:20)
[2016-09-17] MEDS: ASCORBIC ACID 500 MG TABLET (FP) PO SCH (10:20)
[2016-09-17] MEDS: CEFUROXIME AXETIL 500 MG TABLET PO SCH ×2 (10:20→21:21)
[2016-09-17] MEDS: BACLOFEN 10 MG TABLET (FP) PO SCH (10:20)
[2016-09-17] MEDS: ZINC SULFATE 220 MG CAPSULE (FP) PO SCH (10:20)
--- NOTE | 2016-09-17 12:22 | PN ---
Progress Note, Physician History of Present Illness: pulmonary awake,c/o mild chest congestion ,dry cough - Current Medication List Current Medications: Active Medications Acetaminophen (Tylenol -) 650 mg PO Q4H PRN PRN Reason: FEVER OR PAIN Last Admin: 09/17/16 06:32 Dose: 650 mg Albuterol Sulfate (Ventolin 0.083% Nebulizer Soln -) 1 amp NEB Q4H PRN PRN Reason: SHORT OF BREATH/WHEEZING Albuterol Sulfate (Ventolin 0.083% Nebulizer Soln -) 1 amp NEB QIDR [facility] Last Admin: 09/17/16 11:05 Dose: Not Given Amino Acids (Prosource No Carb Liquid Pkt) 30 ml PO BIDWM [facility] Last Admin: 09/17/16 10:19 Dose: 30 ml Ascorbic Acid (Vitamin C -) 500 mg PO DAILY [facility] Last Admin: 09/17/16 10:20 Dose: 500 mg Baclofen (Lioresal -) 10 mg PO DAILY [facility] Last Admin: 09/17/16 10:20 Dose: 10 mg Bisacodyl (Dulcolax -) 5 mg PO DAILY PRN PRN Reason: CONSTIPATION Cefuroxime Axetil (Ceftin -) 500 mg PO BID [facility] Last Admin: 09/17/16 10:20 Dose: 500 mg Citalopram Hydrobromide (Celexa -) 20 mg PO DAILY [facility] Last Admin: 09/17/16 10:30 Dose: Not Given Collagenase (Santyl -) 1 applic TP DAILY [facility] Last Admin: 09/17/16 10:20 Dose: 1 applic Diazepam (Valium -) 5 mg PO HS [facility] Last Admin: 09/16/16 21:52 Dose: Not Given Docusate Sodium (Colace -) 100 mg PO DAILY [facility] Last Admin: 09/17/16 10:20 Dose: 100 mg Enoxaparin Sodium (Lovenox -) 40 mg SQ DAILY [facility] Last Admin: 09/17/16 10:19 Dose: 40 mg Magnesium Hydroxide (Milk Of Magnesia -) 30 ml PO Q8H PRN PRN Reason: INDIGESTION Nystatin/Triamcinolone Acetonide (Mycolog Ii Cream -) 1 applic TP BID [facility] Last Admin: 09/17/16 10:20 Dose: 1 applic Polyethylene Glycol (Miralax (For Daily Use) -) 17 gm PO DAILY [facility] Last Admin: 09/17/16 10:30 Dose: Not Given Prednisone (Deltasone -) 5 mg PO DAILY [facility] Stop: 09/18/16 10:01 Last Admin: 09/17/16 10:20 Dose: 5 mg Senna (Senna -) 1 tab PO HS [facility] Last Admin: 09/16/16 21:47 Dose: 1 tab Sodium Phosphate (Fleet Adult Rectal Enema -) 133 ml RC PRN PRN Zinc Sulfate (Orazinc -) 220 mg PO DAILY [facility] Last Admin: 09/17/16 10:20 Dose: 220 mg - Objective Vital Signs: Vital Signs Temperature 98.3 F 09/17/16 09:00 Pulse Rate 89 09/17/16 11:05 Respiratory Rate 18 09/17/16 09:00 Blood Pressure 95/56 09/17/16 09:00 O2 Sat by Pulse Oximetry (%) 90 L 09/17/16 11:05 Constitutional: Yes: Calm, Thin Eyes: Yes: WNL HENT: Yes: WNL Neck: Yes: WNL Cardiovascular: Yes: Regular Rate and Rhythm, S1, S2 Respiratory: Yes: Rhonchi (few scattered rhonchi) Gastrointestinal: Yes: Normal Bowel Sounds, Soft Extremities: Yes: WNL Edema: No Neurological: Yes: Other (bilateral lower ext paraplegia) Labs: CBC, BMP 09/11/16 06:05 09/11/16 06:05 INR, PTT INR 1.18 (0.82-1.09) H 08/31/16 16:15 Problem List - Problems (1) COPD exacerbation Code(s): J44.1 - CHRONIC OBSTRUCTIVE PULMONARY DISEASE W (ACUTE) EXACERBATION (2) Hypoxia Code(s): R09.02 - HYPOXEMIA (3) Pneumonia Code(s): J18.9 - PNEUMONIA, UNSPECIFIED ORGANISM Qualifiers: Laterality: left Lung location: lower lobe of lung (4) Acute respiratory failure with hypoxemia Code(s): J96.01 - ACUTE RESPIRATORY FAILURE WITH HYPOXIA (5) Breast CA Code(s): C50.919 - MALIGNANT NEOPLASM OF UNSP SITE OF UNSPECIFIED FEMALE BREAST Assessment/Plan IMP ACUTE HYPOXEMIC RESPIRATORY FAILURE IMPROVED COPD EXACERBATION PNEUMONIA BRONCHITIS METASTATIC BREAST CA LOWER EXTREMITY PARALYSIS SPINAL METS CHEST WALL METS PLAN ANTIBIOTICS INHALED BRONCHODILATORS START BROVANA O2 TO MAINTAIN O2 SAT 90% RT TO CHEST WALL PREDNISONE CHEST X-RAY TODAY DR FOUNTAIN Problem List - Problems (1) COPD exacerbation Code(s): J44.1 - CHRONIC OBSTRUCTIVE PULMONARY DISEASE W (ACUTE) EXACERBATION (2) Hypoxia Code(s): R09.02 - HYPOXEMIA (3) Pneumonia Code(s): J18.9 - PNEUMONIA, UNSPECIFIED ORGANISM Qualifiers: Pneumonia type: due to unspecified organism Lung location: unspecified part of lung (4) Acute respiratory failure with hypoxemia Code(s): J96.01 - ACUTE RESPIRATORY FAILURE WITH HYPOXIA (5) Breast CA Code(s): C50.919 - [facility]IG[facility]NT [facility] SITE OF UNSPECIFIED FEMALE BREAST
[2016-09-17] MEDS: ARFORMOTEROL TARTRATE 15 MCG/2 ML VIAL NEB SCH ×2 (12:42→22:20)
--- NOTE | 2016-09-17 19:12 | PN ---
Progress Note, Physician Chief Complaint: METASTATIC BREAST CA History of Present Illness: LAYING IN BED, COMPLAINING OF BACK PAIN. OTHERWISE COMFORTABLE. - Current Medication List Current Medications: Active Medications Acetaminophen (Tylenol -) 650 mg PO Q4H PRN PRN Reason: FEVER OR PAIN Last Admin: 09/17/16 14:15 Dose: 650 mg Albuterol Sulfate (Ventolin 0.083% Nebulizer Soln -) 1 amp NEB Q4H PRN PRN Reason: SHORT OF BREATH/WHEEZING Amino Acids (Prosource No Carb Liquid Pkt) 30 ml PO BIDWM [facility] Last Admin: 09/17/16 17:39 Dose: 30 ml Arformoterol Tartrate (Brovana (Restricted To Pulmonology/Resp) -) 1 amp NEB BID [facility] Last Admin: 09/17/16 12:42 Dose: Not Given Ascorbic Acid (Vitamin C -) 500 mg PO DAILY [facility] Last Admin: 09/17/16 10:20 Dose: 500 mg Baclofen (Lioresal -) 10 mg PO DAILY [facility] Last Admin: 09/17/16 10:20 Dose: 10 mg Bisacodyl (Dulcolax -) 5 mg PO DAILY PRN PRN Reason: CONSTIPATION Cefuroxime Axetil (Ceftin -) 500 mg PO BID [facility] Last Admin: 09/17/16 10:20 Dose: 500 mg Collagenase (Santyl -) 1 applic TP DAILY [facility] Last Admin: 09/17/16 10:20 Dose: 1 applic Docusate Sodium (Colace -) 100 mg PO DAILY [facility] Last Admin: 09/17/16 10:20 Dose: 100 mg Enoxaparin Sodium (Lovenox -) 40 mg SQ DAILY [facility] Last Admin: 09/17/16 10:19 Dose: 40 mg Magnesium Hydroxide (Milk Of Magnesia -) 30 ml PO Q8H PRN PRN Reason: INDIGESTION Nystatin/Triamcinolone Acetonide (Mycolog Ii Cream -) 1 applic TP BID [facility] Last Admin: 09/17/16 10:20 Dose: 1 applic Polyethylene Glycol (Miralax (For Daily Use) -) 17 gm PO DAILY [facility] Last Admin: 09/17/16 10:30 Dose: Not Given Prednisone (Deltasone -) 5 mg PO DAILY [facility] Stop: 09/18/16 10:01 Last Admin: 09/17/16 10:20 Dose: 5 mg Senna (Senna -) 1 tab PO HS [facility] Last Admin: 09/16/16 21:47 Dose: 1 tab Sodium Phosphate (Fleet Adult Rectal Enema -) 133 ml RC PRN PRN Zinc Sulfate (Orazinc -) 220 mg PO DAILY [facility] Last Admin: 09/17/16 10:20 Dose: 220 mg - Objective Vital Signs: Vital Signs Temperature 98.8 F 09/17/16 18:00 Pulse Rate 73 09/17/16 18:00 Respiratory Rate 20 09/17/16 18:00 Blood Pressure 87/51 09/17/16 18:00 O2 Sat by Pulse Oximetry (%) 90 L 09/17/16 11:05 Constitutional: Yes: Well Nourished, No Distress, Calm Cardiovascular: Yes: Regular Rate and Rhythm Respiratory: Yes: Regular Edema: No Labs: CBC, BMP 09/11/16 06:05 09/11/16 06:05 INR, PTT INR 1.18 (0.82-1.09) H 08/31/16 16:15 Problem List - Problems (1) Breast CA Assessment/Plan: CT ABDOMEN SHOWS MET LESION OF T12 AND LEFT ILIAC BONE. BONE SCAN ORDERED. Code(s): C50.919 - MALIGNANT NEOPLASM OF UNSP SITE OF UNSPECIFIED FEMALE BREAST (2) COPD (chronic obstructive pulmonary disease) Assessment/Plan: STABLE, ON NASAL O2 Code(s): J44.9 - CHRONIC OBSTRUCTIVE PULMONARY DISEASE, UNSPECIFIED (3) Spinal cord compression due to 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 Assessment/Plan Bone scan ordered RT vs chemo as per oncology her out patient oncologist is Dr John Ledezma at [facility] [phone]
[2016-09-17] MEDS: SENNOSIDES 8.6MG TABLET (FP) PO SCH (21:22)
[2016-09-18] MEDS: ACETAMINOPHEN 325 MG TABLET (FP) PO PRN ×4 (02:33→23:16)
[2016-09-18 07:45] LABS: BASOPHIL 0.9 % (0-2.0); EOSINOPHIL 3.3 % (0-4.5); MCHC 33.5 g/dl (32.0-36.0); MEAN CELL VOLUME 92.5 fl (80-96); MEAN PLT VOLUME 7.2 fl (7.5-11.1); NEUTROPHILS 70.6 % (42.8-82.8); PLATELET COUNT 207 K/MM3 (134-434); RDW 15.1 % (11.6-15.6); WHITE BLOOD COUNT 7.1 K/mm3 (4.0-10.0)
[2016-09-18] MEDS: AMINO ACIDS/PROTEIN HYDROLYS 30 ML LIQUID.PKT PO SCH ×2 (08:00→17:02)
[2016-09-18 08:11] LABS: ALBUMIN 2.4 g/dl (3.4-5.0); ALK PHOS 109 U/L (45-117); ANION GAP 7 (8-16); BILIRUBIN,TOTAL 0.3 mg/dL (0.2-1.0); CALCIUM 8.8 mg/dL (8.5-10.1); CO2 31 mmol/L (21-32); CREATININE 0.3 mg/dL (0.55-1.02); GLUCOSE,RANDOM 82 mg/dL (74-106); SGOT/AST 13 U/L (15-37); SGPT/ALT 23 U/L (12-78); TOT PROT 5.6 g/dl (6.4-8.2)
[2016-09-18] MEDS ORDERED: PT OWN MED DRAWER 7, Y5N ONE (09:41)
[2016-09-18] MEDS: ARFORMOTEROL TARTRATE 15 MCG/2 ML VIAL NEB SCH ×2 (09:50→22:02)
[2016-09-18] MEDS: predniSONE 5 MG TABLET (UD) PO SCH (10:01)
[2016-09-18] MEDS: CEFUROXIME AXETIL 500 MG TABLET PO SCH ×2 (10:01→21:27)
[2016-09-18] MEDS: ENOXAPARIN NA (PORCINE) 40 MG/0.4 ML DISP.SYRIN SQ SCH (10:01)
[2016-09-18] MEDS: BACLOFEN 10 MG TABLET (FP) PO SCH (10:01)
[2016-09-18] MEDS: ZINC SULFATE 220 MG CAPSULE (FP) PO SCH (10:01)
[2016-09-18] MEDS: DOCUSATE SODIUM 100 MG CAPSULE (FP) PO SCH (10:01)
[2016-09-18] MEDS: ASCORBIC ACID 500 MG TABLET (FP) PO SCH (10:01)
[2016-09-18] MEDS: COLLAGENASE CLOSTRIDIUM HIST. 30 GRAMS TUBE TP SCH (10:02)
[2016-09-18] MEDS: NYSTATIN/TRIAMCINOLONE TOPICAL CREAM 15 GM TUBE TP SCH ×2 (10:03→21:27)
[2016-09-18] MEDS: POLYETHYLENE GLYCOL 3350 119 GM BTL PO SCH (11:25)
--- NOTE | 2016-09-18 13:12 | PN ---
Progress Note, Physician History of Present Illness: PULMONARY ALERT,FEELING BETTER,-SOB,LESS COUGH,LESS CONGESTION - Current Medication List Current Medications: Active Medications Acetaminophen (Tylenol -) 650 mg PO Q4H PRN PRN Reason: FEVER OR PAIN Last Admin: 09/18/16 11:25 Dose: 650 mg Albuterol Sulfate (Ventolin 0.083% Nebulizer Soln -) 1 amp NEB Q4H PRN PRN Reason: SHORT OF BREATH/WHEEZING Amino Acids (Prosource No Carb Liquid Pkt) 30 ml PO BIDWM [facility] Last Admin: 09/18/16 08:00 Dose: 30 ml Arformoterol Tartrate (Brovana (Restricted To Pulmonology/Resp) -) 1 amp NEB BID [facility] Last Admin: 09/18/16 09:50 Dose: Not Given Ascorbic Acid (Vitamin C -) 500 mg PO DAILY [facility] Last Admin: 09/18/16 10:01 Dose: 500 mg Baclofen (Lioresal -) 10 mg PO DAILY [facility] Last Admin: 09/18/16 10:01 Dose: 10 mg Bisacodyl (Dulcolax -) 5 mg PO DAILY PRN PRN Reason: CONSTIPATION Cefuroxime Axetil (Ceftin -) 500 mg PO BID [facility] Last Admin: 09/18/16 10:01 Dose: 500 mg Collagenase (Santyl -) 1 applic TP DAILY [facility] Last Admin: 09/18/16 10:02 Dose: 1 applic Docusate Sodium (Colace -) 100 mg PO DAILY [facility] Last Admin: 09/18/16 10:01 Dose: 100 mg Enoxaparin Sodium (Lovenox -) 40 mg SQ DAILY [facility] Last Admin: 09/18/16 10:01 Dose: 40 mg Magnesium Hydroxide (Milk Of Magnesia -) 30 ml PO Q8H PRN PRN Reason: INDIGESTION Nystatin/Triamcinolone Acetonide (Mycolog Ii Cream -) 1 applic TP BID [facility] Last Admin: 09/18/16 10:03 Dose: 1 applic Polyethylene Glycol (Miralax (For Daily Use) -) 17 gm PO DAILY [facility] Last Admin: 09/18/16 11:25 Dose: Not Given Senna (Senna -) 1 tab PO HS [facility] Last Admin: 09/17/16 21:22 Dose: 1 tab Sodium Phosphate (Fleet Adult Rectal Enema -) 133 ml RC PRN PRN Zinc Sulfate (Orazinc -) 220 mg PO DAILY [facility] Last Admin: 09/18/16 10:01 Dose: 220 mg - Objective Vital Signs: Vital Signs Temperature 99.3 F 09/18/16 06:57 Pulse Rate 99 H 09/18/16 09:50 Respiratory Rate 18 09/18/16 06:57 Blood Pressure 126/47 09/18/16 06:57 O2 Sat by Pulse Oximetry (%) 91 L 09/18/16 09:50 Constitutional: Yes: Calm, Thin Eyes: Yes: WNL HENT: Yes: WNL Neck: Yes: WNL Cardiovascular: Yes: Regular Rate and Rhythm, S1, S2 Respiratory: Yes: Diminished Gastrointestinal: Yes: Normal Bowel Sounds, Soft Extremities: Yes: WNL, Other (PARAPLEGIA RADHA LOWER EXT) Edema: No Peripheral Pulses WNL: No Labs: CBC, BMP 09/18/16 05:35 09/18/16 05:35 INR, PTT INR 1.18 (0.82-1.09) H 08/31/16 16:15 - ....Imaging Chest X-ray: Report Reviewed, Image Reviewed (- infiltrates) Problem List - Problems (1) COPD exacerbation Code(s): J44.1 - CHRONIC OBSTRUCTIVE PULMONARY DISEASE W (ACUTE) EXACERBATION (2) Hypoxia Code(s): R09.02 - HYPOXEMIA (3) Pneumonia Code(s): J18.9 - PNEUMONIA, UNSPECIFIED ORGANISM Qualifiers: Laterality: left Lung location: lower lobe of lung (4) Acute respiratory failure with hypoxemia Code(s): J96.01 - ACUTE RESPIRATORY FAILURE WITH HYPOXIA (5) Breast CA Code(s): C50.919 - MALIGNANT NEOPLASM OF UNSP SITE OF UNSPECIFIED FEMALE BREAST Assessment/Plan IMP ACUTE HYPOXEMIC RESPIRATORY FAILURE IMPROVED COPD EXACERBATION PNEUMONIA BRONCHITIS METASTATIC BREAST CA LOWER EXTREMITY PARALYSIS SPINAL METS CHEST WALL METS PLAN ANTIBIOTICS INHALED BRONCHODILATORS O2 TO MAINTAIN O2 SAT 90% RT TO CHEST WALL DR FOUNTAIN Problem List - Problems (1) COPD exacerbation Code(s): J44.1 - CHRONIC OBSTRUCTIVE PULMONARY DISEASE W (ACUTE) EXACERBATION (2) Hypoxia Code(s): R09.02 - HYPOXEMIA (3) Pneumonia Code(s): J18.9 - PNEUMONIA, UNSPECIFIED ORGANISM Qualifiers: Pneumonia type: due to unspecified organism Lung location: unspecified part of lung (4) Acute respiratory failure with hypoxemia Code(s): J96.01 - ACUTE RESPIRATORY FAILURE WITH HYPOXIA (5) Breast CA Code(s): C50.919 - MALIGNANT NEOPLASM OF UNSP SITE OF UNSPECIFIED FEMALE BREAST
--- NOTE | 2016-09-18 19:02 | PN ---
Progress Note, Physician Chief Complaint: ASLEEP NAD - Current Medication List Current Medications: Active Medications Acetaminophen (Tylenol -) 650 mg PO Q4H PRN PRN Reason: FEVER OR PAIN Last Admin: 09/18/16 18:41 Dose: 650 mg Albuterol Sulfate (Ventolin 0.083% Nebulizer Soln -) 1 amp NEB Q4H PRN PRN Reason: SHORT OF BREATH/WHEEZING Amino Acids (Prosource No Carb Liquid Pkt) 30 ml PO BIDWM [facility] Last Admin: 09/18/16 17:02 Dose: 30 ml Arformoterol Tartrate (Brovana (Restricted To Pulmonology/Resp) -) 1 amp NEB BID [facility] Last Admin: 09/18/16 09:50 Dose: Not Given Ascorbic Acid (Vitamin C -) 500 mg PO DAILY [facility] Last Admin: 09/18/16 10:01 Dose: 500 mg Baclofen (Lioresal -) 10 mg PO DAILY [facility] Last Admin: 09/18/16 10:01 Dose: 10 mg Bisacodyl (Dulcolax -) 5 mg PO DAILY PRN PRN Reason: CONSTIPATION Cefuroxime Axetil (Ceftin -) 500 mg PO BID [facility] Last Admin: 09/18/16 10:01 Dose: 500 mg Collagenase (Santyl -) 1 applic TP DAILY [facility] Last Admin: 09/18/16 10:02 Dose: 1 applic Docusate Sodium (Colace -) 100 mg PO DAILY [facility] Last Admin: 09/18/16 10:01 Dose: 100 mg Enoxaparin Sodium (Lovenox -) 40 mg SQ DAILY [facility] Last Admin: 09/18/16 10:01 Dose: 40 mg Magnesium Hydroxide (Milk Of Magnesia -) 30 ml PO Q8H PRN PRN Reason: INDIGESTION Nystatin/Triamcinolone Acetonide (Mycolog Ii Cream -) 1 applic TP BID [facility] Last Admin: 09/18/16 10:03 Dose: 1 applic Polyethylene Glycol (Miralax (For Daily Use) -) 17 gm PO DAILY [facility] Last Admin: 09/18/16 11:25 Dose: Not Given Senna (Senna -) 1 tab PO HS [facility] Last Admin: 09/17/16 21:22 Dose: 1 tab Sodium Phosphate (Fleet Adult Rectal Enema -) 133 ml RC PRN PRN Zinc Sulfate (Orazinc -) 220 mg PO DAILY [facility] Last Admin: 09/18/16 10:01 Dose: 220 mg - Objective Vital Signs: Vital Signs Temperature 97.9 F 09/18/16 10:00 Pulse Rate 74 09/18/16 10:00 Respiratory Rate 18 09/18/16 10:00 Blood Pressure 95/62 09/18/16 10:00 O2 Sat by Pulse Oximetry (%) 91 L 09/18/16 09:50 Constitutional: Yes: No Distress Eyes: Yes: WNL HENT: Yes: WNL Neck: Yes: WNL Cardiovascular: Yes: WNL, Pulse Irregular Respiratory: Yes: On Nasal O2 Gastrointestinal: Yes: WNL Genitourinary: Yes: Incontinence Musculoskeletal: Yes: Muscle Weakness Extremities: Yes: WNL Edema: No Peripheral Pulses WNL: Yes Neurological: Yes: Pre-Existing Deficit ...Motor Strength: WNL Psychiatric: Yes: WNL, Agitated Labs: CBC, BMP 09/18/16 05:35 09/18/16 05:35 INR, PTT INR 1.18 (0.82-1.09) H 08/31/16 16:15 Problem List - Problems (1) COPD exacerbation Code(s): J44.1 - CHRONIC OBSTRUCTIVE PULMONARY DISEASE W (ACUTE) EXACERBATION (2) Hypoxia Code(s): R09.02 - HYPOXEMIA (3) Pneumonia Code(s): J18.9 - PNEUMONIA, UNSPECIFIED ORGANISM Qualifiers: Laterality: left Lung location: lower lobe of lung (4) Spinal cord compression due to 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 (5) Psychiatric disorder Code(s): F99 - MENTAL DISORDER, NOT OTHERWISE SPECIFIED (6) Psychoses Code(s): F29 - UNSP PSYCHOSIS NOT DUE TO A SUBSTANCE OR KNOWN PHYSIOL COND (7) Spinal cord neoplasm Code(s): D49.7 - NEOPLM OF UNSP BEHAV OF ENDO GLANDS AND OTH PRT NERVOUS SYS (8) Atrial fibrillation Code(s): I48.91 - UNSPECIFIED ATRIAL FIBRILLATION Qualifiers: Atrial fibrillation type: paroxysmal Qualified Code(s): I48.0 - Paroxysmal atrial fibrillation Assessment/Plan UNCLEAR IF PATIENT WANTS TO CONTINUE RT VS CHEMOTHERAPY DISCUSSED WITH [employer] SUPERVISOR PALLIATIVE CARE ATTEMPTED TO DISCUSS HOWEVER PATIENT IS NOT COOPERATING... CONTINUE CURRENT CARE ADVISE PALLIAITVE UNLESS FAMILY WANTS FULL RT AND CHEMO
[2016-09-18] MEDS: SENNOSIDES 8.6MG TABLET (FP) PO SCH (21:27)
[2016-09-19] MEDS: ACETAMINOPHEN 325 MG TABLET (FP) PO PRN ×2 (06:11→22:43)
[2016-09-19] MEDS: AMINO ACIDS/PROTEIN HYDROLYS 30 ML LIQUID.PKT PO SCH ×2 (09:34→17:44)
[2016-09-19] MEDS: ENOXAPARIN NA (PORCINE) 40 MG/0.4 ML DISP.SYRIN SQ SCH (09:34)
[2016-09-19] MEDS: DOCUSATE SODIUM 100 MG CAPSULE (FP) PO SCH (09:35)
[2016-09-19] MEDS: ZINC SULFATE 220 MG CAPSULE (FP) PO SCH (09:36)
[2016-09-19] MEDS: CEFUROXIME AXETIL 500 MG TABLET PO SCH ×2 (09:36→21:47)
[2016-09-19] MEDS: ASCORBIC ACID 500 MG TABLET (FP) PO SCH (09:36)
[2016-09-19] MEDS: POLYETHYLENE GLYCOL 3350 119 GM BTL PO SCH (09:37)
[2016-09-19] MEDS: BACLOFEN 10 MG TABLET (FP) PO SCH (09:37)
[2016-09-19] MEDS: NYSTATIN/TRIAMCINOLONE TOPICAL CREAM 15 GM TUBE TP SCH ×2 (09:38→21:47)
[2016-09-19] MEDS: ARFORMOTEROL TARTRATE 15 MCG/2 ML VIAL NEB SCH ×2 (09:46→22:45)
--- NOTE | 2016-09-19 11:06 | PN ---
Progress Note (short form) - Note Progress Note: PULMONARY No shortness of breath or chest pain. No cough or wheezing. Last Vital Signs Temp Pulse Resp BP Pulse Ox 98.9 F 56 L 20 85/54 91 L 09/19/16 07:31 09/19/16 07:31 09/19/16 07:31 09/19/16 07:31 09/18/16 09:50 Gen: NAD at rest Heart: RRR Lung: decreased breath sounds at the bases, no wheezes appreciated Abd: soft, nontender Ext: no edema CBC, BMP 09/18/16 05:35 09/18/16 05:35 Active Medications Acetaminophen (Tylenol -) 650 mg PO Q4H PRN PRN Reason: FEVER OR PAIN Last Admin: 09/19/16 06:11 Dose: 650 mg Albuterol Sulfate (Ventolin 0.083% Nebulizer Soln -) 1 amp NEB Q4H PRN PRN Reason: SHORT OF BREATH/WHEEZING Amino Acids (Prosource No Carb Liquid Pkt) 30 ml PO BIDWM [facility] Last Admin: 09/19/16 09:34 Dose: 30 ml Arformoterol Tartrate (Brovana (Restricted To Pulmonology/Resp) -) 1 amp NEB BID [facility] Last Admin: 09/19/16 09:46 Dose: Not Given Ascorbic Acid (Vitamin C -) 500 mg PO DAILY [facility] Last Admin: 09/19/16 09:36 Dose: 500 mg Baclofen (Lioresal -) 10 mg PO DAILY [facility] Last Admin: 09/19/16 09:37 Dose: 10 mg Bisacodyl (Dulcolax -) 5 mg PO DAILY PRN PRN Reason: CONSTIPATION Cefuroxime Axetil (Ceftin -) 500 mg PO BID [facility] Last Admin: 09/19/16 09:36 Dose: 500 mg Collagenase (Santyl -) 1 applic TP DAILY [facility] Last Admin: 09/18/16 10:02 Dose: 1 applic Docusate Sodium (Colace -) 100 mg PO DAILY [facility] Last Admin: 09/19/16 09:35 Dose: 100 mg Enoxaparin Sodium (Lovenox -) 40 mg SQ DAILY [facility] Last Admin: 09/19/16 09:34 Dose: 40 mg Magnesium Hydroxide (Milk Of Magnesia -) 30 ml PO Q8H PRN PRN Reason: INDIGESTION Nystatin/Triamcinolone Acetonide (Mycolog Ii Cream -) 1 applic TP BID [facility] Last Admin: 09/19/16 09:38 Dose: 1 applic Polyethylene Glycol (Miralax (For Daily Use) -) 17 gm PO DAILY [facility] Last Admin: 09/19/16 09:37 Dose: Not Given Senna (Senna -) 1 tab PO HS [facility] Last Admin: 09/18/16 21:27 Dose: 1 tab Sodium Phosphate (Fleet Adult Rectal Enema -) 133 ml RC PRN PRN Zinc Sulfate (Orazinc -) 220 mg PO DAILY [facility] Last Admin: 09/19/16 09:36 Dose: 220 mg A/P Pneumonia resolved Acute COPD Exacerbation improving Metastatic Breast Ca with spinal mets Lower Extremity Paralysis Atrial Fibrillation with RVR now in sinus - cardiology f/u - completed antibiotics - prednisone completed - inhaled bronchodilators - O2 to keep SpO2 >90% - DVT prophylaxis - RT per rad onc - continue discussions regarding goals of care
[2016-09-19] MEDS: COLLAGENASE CLOSTRIDIUM HIST. 30 GRAMS TUBE TP SCH (14:17)
[2016-09-19] MEDS: SENNOSIDES 8.6MG TABLET (FP) PO SCH (21:47)
[2016-09-20] MEDS: ACETAMINOPHEN 325 MG TABLET (FP) PO PRN ×3 (04:28→15:27)
[2016-09-20] MEDS ORDERED: PT OWN MED DRAWER 7, Y5N ONE (08:53)
[2016-09-20] MEDS: AMINO ACIDS/PROTEIN HYDROLYS 30 ML LIQUID.PKT PO SCH (09:06)
[2016-09-20] MEDS: ASCORBIC ACID 500 MG TABLET (FP) PO SCH (09:07)
[2016-09-20] MEDS: POLYETHYLENE GLYCOL 3350 119 GM BTL PO SCH (09:07)
[2016-09-20] MEDS: BACLOFEN 10 MG TABLET (FP) PO SCH (09:07)
[2016-09-20] MEDS: DOCUSATE SODIUM 100 MG CAPSULE (FP) PO SCH (09:07)
[2016-09-20] MEDS: ZINC SULFATE 220 MG CAPSULE (FP) PO SCH (09:07)
[2016-09-20] MEDS: ENOXAPARIN NA (PORCINE) 40 MG/0.4 ML DISP.SYRIN SQ SCH (09:08)
[2016-09-20] MEDS: NYSTATIN/TRIAMCINOLONE TOPICAL CREAM 15 GM TUBE TP SCH (09:11)
[2016-09-20] MEDS: CEFUROXIME AXETIL 500 MG TABLET PO SCH (09:18)
--- NOTE | 2016-09-20 09:18 | DS ---
Physical Examination Vital Signs: Vital Signs Temperature 97.2 F L 09/20/16 06:00 Pulse Rate 80 09/20/16 06:00 Respiratory Rate 20 09/20/16 06:00 Blood Pressure 108/48 09/20/16 06:00 O2 Sat by Pulse Oximetry (%) 98 09/19/16 14:16 Constitutional: Yes: No Distress Eyes: Yes: WNL HENT: Yes: WNL Neck: Yes: WNL Cardiovascular: Yes: Pulse Irregular Respiratory: Yes: On Nasal O2 Gastrointestinal: Yes: WNL Musculoskeletal: Yes: Muscle Weakness Extremities: Yes: Other Edema: No Peripheral Pulses WNL: Yes Integumentary: Yes: Venous Stasis Changes Wound/Incision: Yes: Dressing Dry and Intact Neurological: Yes: Pre-Existing Deficit Psychiatric: Yes: Other Labs: CBC, BMP 09/18/16 05:35 09/18/16 05:35 Discharge Summary Reason For Visit: LOCAL INFECTION OF WOUND; HYPOXIA; COPD Current Active Problems Atrial fibrillation (Acute) Breast CA (Acute) COPD (chronic obstructive pulmonary disease) (Acute) COPD exacerbation (Acute) Hyponatremia (Acute) Hypoxia (Acute) Mood altered (Acute) 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 DECISION ON TREATMENT STILL NOT DECIDED BY PATIENT AND DAUGHTER, WILL TRANSFER TO SNF, CAN DISCUSS OUTPATIENT WITHIN NEXT WEEK WITH DR JENNINGS ONCE HER HEALTH IS OPTIMIZED WITH PHYSICAL THERAPY AND NOURISHMENT. Condition: Poor - Instructions Diet, Activity, Other Instructions: TOLERATED REG DIET ENSURE/BOOST PROTEIN PACKS SEE DR JENNINGS IN 1WEEK ONCOLOGY EVAL/FOLLOW UP Referrals: Javed Ball [Primary Care Provider] - Disposition: [facility] - Home Medications Comprehensive Discharge Medication List: Ambulatory Orders Albuterol 0.083% Nebulizer Bella [Ventolin 0.083%] 1 neb NEB QID PRN 08/31/16 Amino Acids/Protein Hydrolys [Pro-Stat Sugar Free Liquid] 30 ml PO BID 08/31/16 Amox-Tr/K Cl [Augmentin - 875Mg Tablet] 1 tab PO BID 08/31/16 Ascorbic Acid [Vitamin C -] 500 mg PO DAILY 08/31/16 Azithromycin [Zithromax -] 1 tab PO DAILY 08/31/16 Baclofen 10 mg PO DAILY 08/31/16 Calcium Carbonate/Vitamin D3 [Eq Calcium 500-Vit D3 400 Tab] 1 each PO BID 08/31 Citalopram Hydrobromide [Celexa -] 20 mg PO DAILY 08/31/16 Diazepam [Valium] 5 mg PO HS 08/31/16 Docusate Sodium [Colace -] 100 mg PO DAILY 08/31/16 Enoxaparin [Lovenox -] 40 mg SQ DAILY 08/31/16 Guaifenesin [Robitussin -] 10 ml PO Q6H PRN 08/31/16 Loperamide HCl [Imodium A-D] 2 mg PO PRN 08/31/16 Magnesium Hydroxide [Milk of Magnesia] 400 mg PO PRN 08/31/16 Na Phos,M-B/Na Phos,Di-Ba [Fleet Enema] 133 ml RC PRN 08/31/16 Nystatin/Triamcinolone Top Cr [Mycolog II -] 1 applic TP BID 08/31/16 Sennosides [Senna] 8.6 mg PO HS 08/31/16 Zinc Sulfate 220 mg PO DAILY 08/31/16 Acetaminophen [Tylenol .Regular Strength -] 650 mg PO Q4H PRN #0 tablet Arformoterol Tartrate [Brovana -] 1 amp NEB BID amp 09/20/16 Cefuroxime Axetil [Ceftin -] 500 mg PO BID 5 Days 09/20/16 Collagenase Clostridium Hist. [Santyl -] 1 applic TP DAILY tube 09/20/16 Polyethylene Glycol 3350 [Miralax 119 gm Btl -] 17 gm PO DAILY bottle 09/20/16
[2016-09-20] MEDS: ARFORMOTEROL TARTRATE 15 MCG/2 ML VIAL NEB SCH (10:40)
--- NOTE | 2016-09-20 13:09 | PN ---
Progress Note, Physician History of Present Illness: pulmonary alert,c/o mild congestion. - Current Medication List Current Medications: Active Medications Acetaminophen (Tylenol -) 650 mg PO Q4H PRN PRN Reason: FEVER OR PAIN Last Admin: 09/20/16 09:03 Dose: 650 mg Albuterol Sulfate (Ventolin 0.083% Nebulizer Soln -) 1 amp NEB Q4H PRN PRN Reason: SHORT OF BREATH/WHEEZING Amino Acids (Prosource No Carb Liquid Pkt) 30 ml PO BIDWM [facility] Last Admin: 09/20/16 09:06 Dose: 30 ml Arformoterol Tartrate (Brovana (Restricted To Pulmonology/Resp) -) 1 amp NEB BID [facility] Last Admin: 09/20/16 10:40 Dose: Not Given Ascorbic Acid (Vitamin C -) 500 mg PO DAILY [facility] Last Admin: 09/20/16 09:07 Dose: 500 mg Baclofen (Lioresal -) 10 mg PO DAILY [facility] Last Admin: 09/20/16 09:07 Dose: 10 mg Bisacodyl (Dulcolax -) 5 mg PO DAILY PRN PRN Reason: CONSTIPATION Cefuroxime Axetil (Ceftin -) 500 mg PO BID [facility] Last Admin: 09/20/16 09:18 Dose: 500 mg Collagenase (Santyl -) 1 applic TP DAILY [facility] Last Admin: 09/19/16 14:17 Dose: 1 applic Docusate Sodium (Colace -) 100 mg PO DAILY [facility] Last Admin: 09/20/16 09:07 Dose: 100 mg Enoxaparin Sodium (Lovenox -) 40 mg SQ DAILY [facility] Last Admin: 09/20/16 09:08 Dose: 40 mg Magnesium Hydroxide (Milk Of Magnesia -) 30 ml PO Q8H PRN PRN Reason: INDIGESTION Nystatin/Triamcinolone Acetonide (Mycolog Ii Cream -) 1 applic TP BID [facility] Last Admin: 09/20/16 09:11 Dose: 1 applic Polyethylene Glycol (Miralax (For Daily Use) -) 17 gm PO DAILY [facility] Last Admin: 09/20/16 09:07 Dose: Not Given Senna (Senna -) 1 tab PO HS [facility] Last Admin: 09/19/16 21:47 Dose: 1 tab Sodium Phosphate (Fleet Adult Rectal Enema -) 133 ml RC PRN PRN Zinc Sulfate (Orazinc -) 220 mg PO DAILY [facility] Last Admin: 09/20/16 09:07 Dose: 220 mg - Objective Vital Signs: Vital Signs Temperature 97.2 F L 09/20/16 06:00 Pulse Rate 76 09/20/16 12:39 Respiratory Rate 20 09/20/16 06:00 Blood Pressure 108/48 09/20/16 06:00 O2 Sat by Pulse Oximetry (%) 95 09/20/16 12:39 Constitutional: Yes: Calm, Thin Eyes: Yes: WNL HENT: Yes: WNL Neck: Yes: WNL Cardiovascular: Yes: Pulse Irregular, S1, S2 Respiratory: Yes: Rhonchi (few rhonchi) Gastrointestinal: Yes: Normal Bowel Sounds, Soft Extremities: Yes: WNL Edema: No ...Motor Strength: LLE (paraplegia), RLE Labs: CBC, BMP Problem List - Problems (1) COPD exacerbation Code(s): J44.1 - CHRONIC OBSTRUCTIVE PULMONARY DISEASE W (ACUTE) EXACERBATION (2) Hypoxia Code(s): R09.02 - HYPOXEMIA (3) Pneumonia Code(s): J18.9 - PNEUMONIA, UNSPECIFIED ORGANISM Qualifiers: Laterality: left Lung location: lower lobe of lung (4) Acute respiratory failure with hypoxemia Code(s): J96.01 - ACUTE RESPIRATORY FAILURE WITH HYPOXIA (5) Breast CA Code(s): C50.919 - MALIGNANT NEOPLASM OF UNSP SITE OF UNSPECIFIED FEMALE BREAST Assessment/Plan IMP ACUTE HYPOXEMIC RESPIRATORY FAILURE IMPROVED COPD EXACERBATION PNEUMONIA BRONCHITIS METASTATIC BREAST CA LOWER EXTREMITY PARALYSIS SPINAL METS CHEST WALL METS PLAN PO ABX INHALED BRONCHODILATORS O2 TO MAINTAIN O2 SAT 90% DR FOUNTAIN Problem List - Problems (1) COPD exacerbation Code(s): J44.1 - CHRONIC OBSTRUCTIVE PULMONARY DISEASE W (ACUTE) EXACERBATION (2) Hypoxia Code(s): R09.02 - HYPOXEMIA (3) Pneumonia Code(s): J18.9 - PNEUMONIA, UNSPECIFIED ORGANISM Qualifiers: Pneumonia type: due to unspecified organism Lung location: unspecified part of lung (4) Acute respiratory failure with hypoxemia Code(s): J96.01 - ACUTE RESPIRATORY FAILURE WITH HYPOXIA (5) Breast CA Code(s): C50.919 - MALIGNANT NEOPLASM OF UNSP SITE OF UNSPECIFIED FEMALE BREAST
[2016-09-20] MEDS ORDERED: IPRATROPIUM BR 0.02% 0.5 MG/2.5 ML VIAL.NEB. NEB PRN (13:11)
[2016-09-20] MEDS: COLLAGENASE CLOSTRIDIUM HIST. 30 GRAMS TUBE TP SCH (14:00)
[2016-09-20 15:36] VITALS: BP 108/66; PULSE 77; TEMP 98
== END 2016-09-20 17:34 | DRG 189 ==
LOC: JER 15:15 → JERBED 18:19 → J4W 20:43 → J8W 09-04 22:00 → J4W 09-09 13:45 → J5S 09-13 18:52
PROVIDERS: ADMIT Family Medicine; ATTEND Family Medicine
PROC: 0WB80ZX Excision of Chest Wall, Open Approach, Diagnostic (ICD-10-PCS; principal; 2016-09-07 14:30)
DX: J96.01 Acute respiratory failure with hypoxia (principal); J18.9 Pneumonia, unspecified organism; L89.154 Pressure ulcer of sacral region, stage 4; L89.44 Pressure ulcer of contiguous site of back, buttock and hip, stage 4; L89.104 Pressure ulcer of unspecified part of back, stage 4; J44.0 Chronic obstructive pulmonary disease with (acute) lower respiratory infection; N39.0 Urinary tract infection, site not specified; E87.1 Hypo-osmolality and hyponatremia; E46 Unspecified protein-calorie malnutrition; C79.51 Secondary malignant neoplasm of bone; Z68.1 Body mass index [BMI] 19.9 or less, adult; G82.20 Paraplegia, unspecified; G95.20 Unspecified cord compression; C79.89 Secondary malignant neoplasm of other specified sites; R64 Cachexia; J44.1 Chronic obstructive pulmonary disease with (acute) exacerbation; Z85.3 Personal history of malignant neoplasm of breast; G62.9 Polyneuropathy, unspecified; B96.20 Unspecified Escherichia coli [E. coli] as the cause of diseases classified elsewhere; E55.9 Vitamin D deficiency, unspecified; F41.9 Anxiety disorder, unspecified; F17.210 Nicotine dependence, cigarettes, uncomplicated; F29 Unspecified psychosis not due to a substance or known physiological condition; F06.30 Mood disorder due to known physiological condition, unspecified; I50.9 Heart failure, unspecified; C50.919 Malignant neoplasm of unspecified site of unspecified female breast; I48.0 Paroxysmal atrial fibrillation; L89.612 Pressure ulcer of right heel, stage 2
CPT/HCPCS: 36415; 71010-TC; 71250-TC; 74176-TC; 80048; 80053; 82378; 82550; 83605; 83615; 83735; 83880; 84484; 85025; 85027; 85610; 85651; 85730; 86140; 86300; 86850; 86900; 86901; 87040; 87070; 87205; 88305-TC; 88341-TC; 93005; 93010; 93306-TC; 94010; 94640; 94760; 97161-GP; 99285-25; J0475

== ENCOUNTER 2016-10-12 12:03 | Inpatient (IN) | payer OTHER ==
[2016-10-12 12:43] LABS: VENOUS BLOOD GAS HCO3 26.3 meq/L (19-25)
--- NOTE | 2016-10-12 12:43 | PDOC ---
*Physical Exam - Vital Signs Last Vital Signs Temp Pulse Resp BP Pulse Ox 98.8 F 109 H 20 83/56 96 10/12/16 12:09 10/12/16 12:09 10/12/16 12:09 10/12/16 12:09 10/12/16 12:09 Heart Score/ECG Review #1 ECG reviewed & interpreted by me at: 12:43 General ECG Interpretation: Sinus Rhythm, Normal Rate, Normal Intervals, No acute ischemic changes 10/12/16 12:43 ED Treatment Course - LABORATORY CBC & Chemistry Diagram: 10/13/16 15:30 10/13/16 05:05 Medical Decision Making - Critical Care Time Total Critical Care Time (minutes): 60 Critical Care Statement: The care of this patient involved high complexity decision making to prevent further life threatening deterioration of the patient 's condition and/or to evalute & treat vital organ system(s) failure or risk of failure. - Medical Decision Making 10/12/16 12:43 66 yo F h/o metastatic breast cancer with bony mets and paraplegia Pt has extensive, stage 4, malodorous decubitus she was upgraded to the ICU for hypotension she received ivf resuscitation she is alert no complaints other then muscle spasm no fevers or chills Treated with vancomycin and zosyn in the ED after blood cultures were drawn Sepsis secondary to infected decubitus ulcers Pt seen by Midlevel Provider under my direct supervision Pt interviewed and examined I agree with plan as outlined by Midlevel Provider *DC/Admit/Observation/Transfer Diagnosis at time of Disposition: Sepsis - Discharge Dispostion Condition at time of disposition: Guarded
[2016-10-12 12:50] LABS: VENOUS PH 7.46 (7.32-7.42)
[2016-10-12 12:53] LABS: BASOPHIL 0.3 % (0-2.0); EOSINOPHIL 0.7 % (0-4.5); MCH 29.8 pg (25.7-33.7); MEAN CELL VOLUME 90.1 fl (80-96); MEAN PLT VOLUME 6.8 fl (7.5-11.1); NEUTROPHILS 87.6 % (42.8-82.8); PLATELET COUNT 399 K/MM3 (134-434); RDW 15.6 % (11.6-15.6); WHITE BLOOD COUNT 14.7 K/mm3 (4.0-10.0)
--- NOTE | 2016-10-12 12:56 | PDOC ---
History of Present Illness - General Chief Complaint: SIRS, Suspected/Possible Stated Complaint: FEVER/ BED SORES Time Seen by Provider: 10/12/16 12:29 History Source: Patient, Retirement Records Exam Limitations: No Limitations - History of Present Illness Travel History: No Initial Comments: 10/12/16 12:51 HPI: This 66-year-old female presents to the emergency room via EMS with recent fever and bedsores that required debridement. She resides at [facility]. Apparently it had been arranged for her to come here and meet Dr. Garcia, vascular surgery regarding debridement. She does have a low-grade fever of 99.8. Sirs criteria has been started. Her attending is Dr. Marrero for admission. We will contact him once results have been obtained. Attempted to reach out to Dr. Garcia who currently is in the OR. Chief Compliant: Surgical debridement of a sacral wound and fever PMH: Neuropathy, contractures, sacral wound to buttocks, right ankle wound, COPD FH: Pt has not recently traveled outside the country in the last 30 days. Pt has not been in contact with people who have traveled out of the country, in contact with people who have been ill with fever, n, v, d. SH: His eyes in [facility] smoking use: Former illicit drug use: NONE alcohol use: NONE employment/educational status: sexual history: PSH: Wound debridement, heart surgery in 1963 Home med use noted on MAR Allergies: Epinephrine, ProcalAmine, sulfa, Bactrim Immunizations: PCP: Dr. Ball 10/12/16 12:55 Past History - Travel Traveled outside of the country in the last 30 days: No Close contact w/someone who was outside of country & ill: No - Past Medical History Allergies/Adverse Reactions: Allergies Allergy/AdvReac Type Severity Reaction Status Date / Time epinephrine Allergy Verified 10/12/16 12:09 procaine Allergy Verified 10/12/16 12:09 sulfamethoxazole Allergy Verified 10/12/16 12:09 trimethoprim Allergy Verified 10/12/16 12:09 Home Medications: Ambulatory Orders Albuterol 0.083% Nebulizer Bella [Ventolin 0.083%] 1 neb NEB QID PRN 08/31/16 Amino Acids/Protein Hydrolys [Pro-Stat Sugar Free Liquid] 30 ml PO BID 08/31/16 Amox-Tr/K Cl [Augmentin - 875Mg Tablet] 1 tab PO BID 08/31/16 Ascorbic Acid [Vitamin C -] 500 mg PO DAILY 08/31/16 Azithromycin [Zithromax -] 1 tab PO DAILY 08/31/16 Baclofen 10 mg PO DAILY 08/31/16 Calcium Carbonate/Vitamin D3 [Eq Calcium 500-Vit D3 400 Tab] 1 each PO BID 08/31 Citalopram Hydrobromide [Celexa -] 20 mg PO DAILY 08/31/16 Diazepam [Valium] 5 mg PO HS 08/31/16 Docusate Sodium [Colace -] 100 mg PO DAILY 08/31/16 Enoxaparin [Lovenox -] 40 mg SQ DAILY 08/31/16 Guaifenesin [Robitussin -] 10 ml PO Q6H PRN 08/31/16 Loperamide HCl [Imodium A-D] 2 mg PO PRN 08/31/16 Magnesium Hydroxide [Milk of Magnesia] 400 mg PO PRN 08/31/16 Na Phos,M-B/Na Phos,Di-Ba [Fleet Enema] 133 ml RC PRN 08/31/16 Nystatin/Triamcinolone Top Cr [Mycolog II -] 1 applic TP BID 08/31/16 Sennosides [Senna] 8.6 mg PO HS 08/31/16 Zinc Sulfate 220 mg PO DAILY 08/31/16 Acetaminophen [Tylenol .Regular Strength -] 650 mg PO Q4H PRN #0 tablet Arformoterol Tartrate [Brovana -] 1 amp NEB BID amp 09/20/16 Cefuroxime Axetil [Ceftin -] 500 mg PO BID 5 Days 09/20/16 Collagenase Clostridium Hist. 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) COPD: Yes Psychiatric Problems: Yes (ANXIETY) - Surgical History Cardiac Surgery: Yes (AAtrial septal defect repair 1962) - Psycho/Social/Smoking Cessation Hx Anxiety: No Suicidal Ideation: No Smoking History: Former smoker Have you smoked in the past 12 months: No Number of Cigarettes Smoked Daily: 4 Information on smoking cessation initiated: No Hx Alcohol Use: No Drug/Substance Use Hx: No Substance Use Type: None Hx Substance Use Treatment: No Review of Systems - Review of Systems Able to Perform ROS?: Yes Comments:: 10/12/16 12:55 General statement: Patient states she's here for debridement with Dr. Garcia she is noted to be bedridden with multiple contractures to the lower extremities Hematology: neg history of bleeding/blood thinners Skin: Neg for lesions, rash, bruising. HEENT: Neg symptoms Respiratory: Neg SOB or difficulty in breathing Cardiac: Neg chest pain GI: Neg pain, n/v : Neg problems on voiding MS: Neg for joint pain no edema as it is contractures Neuro: Neg for LOC, weakness, Endocrine: Neg for excess thirst/hunger, cold/heat intolerance, excess sweating Allergies: Positive for allergies *Physical Exam - Vital Signs Last Vital Signs Temp Pulse Resp BP Pulse Ox 98.8 F 109 H 20 83/56 96 10/12/16 12:09 10/12/16 12:09 10/12/16 12:09 10/12/16 12:09 10/12/16 12:09 - Physical Exam Comments: 10/12/16 12:56 General Appearance: This is 66-year-old female who is bedridden with contractures who is awake alert and oriented and able to make her needs known V/S: hemodynamically stable, afebrile Skin: WNL of pt's skin color, no signs of pallor, mottling, cyanosis with noted sacral decubiti is and right ankle decubiti Head:symmetrical Eyes: EOM's intact, PERRLA Ears: denies pain Nose: patent Throat: lips, teeth, gums, tongue, buccal mucos pink and moist Lungs: Chest symmetry equal. Cap refill <3 seconds. Lung sounds clear Cardiac: PMI at R 4MCL space, pos S1 and S2, regular rate. Abdomen: Soft, round, nontender : Not observed Muscularskeletal: Contractures no edema +PMS Neuro: AAOx3, cognitively intact, speech clear and appropriate. ED Treatment Course - LABORATORY CBC & Chemistry Diagram: 10/12/16 11:59 10/12/16 11:59 - RADIOLOGY Radiology Studies Ordered: Category Date Time Status CHEST X-RAY PORTABLE* [RAD] Stat Radiology 10/12/16 12:23 Ordered Medical Decision Making - Medical Decision Making 10/12/16 12:57 Patient initially seen and examined. A/P: 66-year-old female who states she is here strictly for a debridement of her wound to the sacral area. She is noted to have a low-grade fever and was documented that she had multiple fevers in the long-term. Due to her significant history of wounds she is placed on Sirs criteria and lab work/ cultures obtained. -lab work -sacral wound cx -IV ABT -UA -tylenol PRN -IVF -NPO until speak with Dr. Garcia -admission with Dr. Marrero 10/12/16 13:05 Laboratory Tests 10/12/16 11:59 WBC 14.7 H D Hgb 10.3 L D Hct 31.1 L MCV 90.1 MCH 29.8 MCHC 33.0 RDW 15.6 Plt Count 399 D MPV 6.8 L Neutrophils % 87.6 H D Lymphocytes % 5.7 L D Monocytes % 5.7 Eosinophils % 0.7 Basophils % 0.3 10/12/16 14:19 Pt sacral, buttock wounds are stage 4 but do not appear to be tunneling. Culture sent. Spoke with Dr. Marrero who has accepted pt for med surg admission. I will place consults for Dr. Hodge per Dr. Marrero request. Pt understands she will be admitted and IV ABT to be started. 10/12/16 14:58 *DC/Admit/Observation/Transfer Diagnosis at time of Disposition: Sepsis - Discharge Dispostion Condition at time of disposition: Guarded Admit: Yes - Referrals
[2016-10-12] MEDS: SODIUM CHLORIDE 0.9% 1000 ML INFUS.BAG IV PRN (12:58)
--- NOTE | 2016-10-12 13:05 | EKG ---
Test Reason : Blood Pressure : / mmHG Vent. Rate : 100 BPM Atrial Rate : 100 BPM P-R Int : 142 ms QRS Dur : 066 ms QT Int : 330 ms P-R-T Axes : 103 -06 063 degrees QTc Int : 425 ms NORMAL SINUS RHYTHM NORMAL ECG WHEN COMPARED WITH ECG OF 09-SEP-2016 12:00, SINUS RHYTHM HAS REPLACED ATRIAL FLUTTER VENT. RATE HAS DECREASED BY [address] NO LONGER DEPRESSED IN INFERIOR LEADS ST LESS DEPRESSED IN ANTERIOR LEADS T WAVE INVERSION NO LONGER EVIDENT IN LATERAL LEADS Confirmed by EZEQUIEL ALMAZAN MD ([id number]) on 10/12/2016 1:05:19 PM Referred By: Confirmed By:EZEQUIEL ALMAZAN MD
[2016-10-12 13:10] LABS: INR 1.37 (0.82-1.09); PROTHROMBIN TIME (PATIENT) 15.2 SEC (9.98-11.88)
[2016-10-12 13:11] LABS: ALBUMIN 1.5 g/dl (3.4-5.0); ANION GAP 8 (8-16); CALCIUM 8.6 mg/dL (8.5-10.1); CO2 26 mmol/L (21-32); CREATININE 0.3 mg/dL (0.55-1.02); GLUCOSE,RANDOM 124 mg/dL (74-106); SGPT/ALT 25 U/L (12-78)
[2016-10-12 13:13] LABS: ACTIVATED PTT 30.3 SECONDS (26.9-34.4)
[2016-10-12 13:15] LABS: TOT PROT 5.3 g/dl (6.4-8.2); TROPONIN I < 0.02 ng/ml (0.00-0.05)
[2016-10-12 13:16] LABS: ALK PHOS 384 U/L (45-117); BILIRUBIN,TOTAL 0.3 mg/dL (0.2-1.0); SGOT/AST 41 U/L (15-37)
[2016-10-12] MEDS ORDERED: ACETAMINOPHEN INJECTION 100 ML IVPB ONE (13:40)
[2016-10-12] MEDS ORDERED: ACETAMINOPHEN 1000 MG/100 ML VIAL (NON FORMULARY) IVPB ONE (13:45)
[2016-10-12] MEDS ORDERED: VANCOMYCIN 1 GRAM (PRE-DOCKED) 1,000 MG/250 ML BAG IVPB ONE (14:03)
[2016-10-12] MEDS ORDERED: PIPERACILLIN/TAZOB 3.375 GM 50 ML IVPB ONE (14:04)
[2016-10-12] MEDS ORDERED: PIPERACILLIN/TAZOB 3.375 GM/50 ML PRE-DOCKED IVPB SCH ×2 (14:15→18:00)
[2016-10-12] MEDS ORDERED: VANCOMYCIN 1 GRAM (PRE-DOCKED) 250 ML IVPB ONE (14:53)
[2016-10-12] MEDS ORDERED: SODIUM CHLORIDE 1,000 ML IV STA ×2 (15:28→19:59)
--- NOTE | 2016-10-12 17:04 | CONSULT ---
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: Peripheral Neuropathy Pulmonary: Yes: COPD - Past Surgical History Past Surgical History: Yes: Cholecystectomy, Tonsillectomy - Alcohol/Substance Use Hx Alcohol Use: No - Smoking History Smoking history: Former smoker Have you smoked in the past 12 months: No Aproximately how many cigarettes per day: 4 - Social History Usual Living Arrangement: Longterm Home Medications - Allergies Allergies/Adverse Reactions: Allergies Allergy/AdvReac Type Severity Reaction Status Date / Time epinephrine Allergy Verified 10/12/16 12:09 procaine Allergy Verified 10/12/16 12:09 sulfamethoxazole Allergy Verified 10/12/16 12:09 trimethoprim Allergy Verified 10/12/16 12:09 - Home Medications Home Medications: Ambulatory Orders Albuterol 0.083% Nebulizer Bella [Ventolin 0.083%] 1 neb NEB QID PRN 08/31/16 Amino Acids/Protein Hydrolys [Pro-Stat Sugar Free Liquid] 30 ml PO BID 08/31/16 Amox-Tr/K Cl [Augmentin - 875Mg Tablet] 1 tab PO BID 08/31/16 Ascorbic Acid [Vitamin C -] 500 mg PO DAILY 08/31/16 Azithromycin [Zithromax -] 1 tab PO DAILY 08/31/16 Baclofen 10 mg PO DAILY 08/31/16 Calcium Carbonate/Vitamin D3 [Eq Calcium 500-Vit D3 400 Tab] 1 each PO BID 08/31 Citalopram Hydrobromide [Celexa -] 20 mg PO DAILY 08/31/16 Diazepam [Valium] 5 mg PO HS 08/31/16 Docusate Sodium [Colace -] 100 mg PO DAILY 08/31/16 Enoxaparin [Lovenox -] 40 mg SQ DAILY 08/31/16 Guaifenesin [Robitussin -] 10 ml PO Q6H PRN 08/31/16 Loperamide HCl [Imodium A-D] 2 mg PO PRN 08/31/16 Magnesium Hydroxide [Milk of Magnesia] 400 mg PO PRN 08/31/16 Na Phos,M-B/Na Phos,Di-Ba [Fleet Enema] 133 ml RC PRN 08/31/16 Nystatin/Triamcinolone Top Cr [Mycolog II -] 1 applic TP BID 08/31/16 Sennosides [Senna] 8.6 mg PO HS 08/31/16 Zinc Sulfate 220 mg PO DAILY 08/31/16 Acetaminophen [Tylenol .Regular Strength -] 650 mg PO Q4H PRN #0 tablet Arformoterol Tartrate [Brovana -] 1 amp NEB BID amp 09/20/16 Cefuroxime Axetil [Ceftin -] 500 mg PO BID 5 Days 09/20/16 Collagenase Clostridium Hist. [Santyl -] 1 applic TP DAILY tube 09/20/16 Polyethylene Glycol 3350 [Miralax 119 gm Btl -] 17 gm PO DAILY bottle 09/20/16 Physical Exam Vital Signs: Vital Signs Temperature 100.5 F H 10/12/16 13:34 Pulse Rate 69 10/12/16 16:08 Respiratory Rate 20 10/12/16 16:08 Blood Pressure 98/77 10/12/16 16:08 O2 Sat by Pulse Oximetry (%) 96 10/12/16 16:08 Assessment/Plan Vascular Surgery This 66-year-old female presents to the emergency room via EMS with recent fever and bedsores that required debridement. She resides at [facility]. She does have a low-grade fever of 99.8. Sirs criteria has been started. Her attending is Dr. Marrero for admission. We will contact him once results have been obtained. Attempted to reach out to Dr. Hauser who currently is in the OR. Chief Compliant: Surgical debridement of a sacral wound and fever PMH: Neuropathy, contractures, sacral wound to buttocks, right ankle wound, COPD FH: Pt has not recently traveled outside the country in the last 30 days. Pt has not been in contact with people who have traveled out of the country, in contact with people who have been ill with fever, n, v, d. PE Head - NC/AT Lung - CTA heart - RRR abd - soft,nt,nd sacrum -- necrotic tissue and foul smelling. A/P STage 4 necrotic sacral ulcer. 1. for debridement at 10am jiCheri hauser DO
[2016-10-12] MEDS ORDERED: VASOPRESSIN 20 UNITS/ML VIAL IV ONE (17:09)
[2016-10-12] MEDS: VASOPRESSIN 50 UNITS in SODIUM CHLORIDE 97.5 ML IVPB SCH (17:32)
--- NOTE | 2016-10-12 19:19 | HP ---
Admitting History and Physical - Primary Care Physician PCP: Rajesh Marrero - Admission Chief Complaint: SEPTIC SACRAL ULCER WITH NECROTIC AREA History of Present Illness: 66 Y/O FEMALE WITH HISTORY OF METASTATIC BREAST CANCER AT [facility] FOR PT/REHAB AND SENT HERE WITH A SACRAL ULCER WITH NECROTIC APPEARANCE AND HYPOTENSION. GIVEN IVF AND VASOPRESSIN IN ED FOR BP SUPPORT. PATIENT H/O AFIB, COPD, PERIPHERAL NEUROPATHY AND BIPOLAR ANXIEY D/O. 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 Cardiovascular: Yes: AFIB Pulmonary: Yes: COPD - Past Surgical History Past Surgical History: Yes: Cholecystectomy, Tonsillectomy - Smoking History Smoking history: Former smoker Have you smoked in the past 12 months: No Aproximately how many cigarettes per day: 4 - Alcohol/Substance Use Hx Alcohol Use: No Home Medications - Allergies Allergies/Adverse Reactions: Allergies Allergy/AdvReac Type Severity Reaction Status Date / Time epinephrine Allergy Verified 10/12/16 12:09 procaine Allergy Verified 10/12/16 12:09 sulfamethoxazole Allergy Verified 10/12/16 12:09 trimethoprim Allergy Verified 10/12/16 12:09 - Home Medications Home Medications: Ambulatory Orders Albuterol 0.083% Nebulizer Bella [Ventolin 0.083%] 1 neb NEB QID PRN 08/31/16 Amino Acids/Protein Hydrolys [Pro-Stat Sugar Free Liquid] 30 ml PO BID 08/31/16 Amox-Tr/K Cl [Augmentin - 875Mg Tablet] 1 tab PO BID 08/31/16 Ascorbic Acid [Vitamin C -] 500 mg PO DAILY 08/31/16 Azithromycin [Zithromax -] 1 tab PO DAILY 08/31/16 Baclofen 10 mg PO DAILY 08/31/16 Calcium Carbonate/Vitamin D3 [Eq Calcium 500-Vit D3 400 Tab] 1 each PO BID 08/31 Citalopram Hydrobromide [Celexa -] 20 mg PO DAILY 08/31/16 Diazepam [Valium] 5 mg PO HS 08/31/16 Docusate Sodium [Colace -] 100 mg PO DAILY 08/31/16 Enoxaparin [Lovenox -] 40 mg SQ DAILY 08/31/16 Guaifenesin [Robitussin -] 10 ml PO Q6H PRN 08/31/16 Loperamide HCl [Imodium A-D] 2 mg PO PRN 08/31/16 Magnesium Hydroxide [Milk of Magnesia] 400 mg PO PRN 08/31/16 Na Phos,M-B/Na Phos,Di-Ba [Fleet Enema] 133 ml RC PRN 08/31/16 Nystatin/Triamcinolone Top Cr [Mycolog II -] 1 applic TP BID 08/31/16 Sennosides [Senna] 8.6 mg PO HS 08/31/16 Zinc Sulfate 220 mg PO DAILY 08/31/16 Acetaminophen [Tylenol .Regular Strength -] 650 mg PO Q4H PRN #0 tablet Arformoterol Tartrate [Brovana -] 1 amp NEB BID amp 09/20/16 Cefuroxime Axetil [Ceftin -] 500 mg PO BID 5 Days 09/20/16 Collagenase Clostridium Hist. [Santyl -] 1 applic TP DAILY tube 09/20/16 Polyethylene Glycol 3350 [Miralax 119 gm Btl -] 17 gm PO DAILY bottle 09/20/16 Review of Systems - Review of Systems Constitutional: reports: Lethargy, Loss of Appetite, Weakness Eyes: reports: No Symptoms HENT: reports: No Symptoms Neck: reports: No Symptoms Cardiovascular: reports: Shortness of Breath Respiratory: reports: SOB Gastrointestinal: reports: No Symptoms Genitourinary: reports: Incontinence Musculoskeletal: reports: Extremity Pain, Joint Pain, Muscle Cramps Integumentary: reports: Wound Neurological: reports: Weakness Endocrine: reports: No Symptoms Hematology/Lymphatic: reports: No Symptoms Psychiatric: reports: Anxiety, Depression Physical Examination Vital Signs: Vital Signs Temperature 100.5 F H 10/12/16 13:34 Pulse Rate 77 10/12/16 18:30 Respiratory Rate 16 10/12/16 18:30 Blood Pressure 114/70 10/12/16 18:30 O2 Sat by Pulse Oximetry (%) 98 10/12/16 17:36 Findings/Remarks: IN ICU, DAUGHTER BEDSIDE BP INCREASED ON VASOPRESSIN Constitutional: Yes: Moderate Distress Eyes: Yes: WNL HENT: Yes: WNL Neck: Yes: WNL Cardiovascular: Yes: Pulse Irregular Respiratory: Yes: On Nasal O2 Gastrointestinal: Yes: WNL Renal/: Yes: Other Breast(s): Yes: Other Musculoskeletal: Yes: Back Pain, Muscle Weakness Extremities: Yes: WNL Edema: No Peripheral Pulses WNL: Yes Integumentary: Yes: Pressure Ulcer, Rash, Other Wound/Incision: Yes: Dressing Removed (STAGE 4 SACRAL NECROTIC ULCER) Neurological: Yes: Pre-Existing Deficit, Weakness ...Motor Strength: LLE, RLE Psychiatric: Yes: Other Assessment/Plan IV ABX ID CONSULT VASC SX FOR SURGERY DEBRIDEMENT BP SUPPORT IVF PRESSOR SUPPORT LABS ICU ADMISSION ADVANCED DIRECTIVES DISCUSSED WITH DAUGHTER WOULD LIKE ONCOLOGY F/U WHEN STABLE
[2016-10-12] MEDS ORDERED: ALBUTEROL SO4 2.5/IPRATROPIUM 0.5 INH SOL 3 ML VIAL.NEB. NEB PRN (19:23)
[2016-10-12] MEDS ORDERED: SODIUM CHLORIDE 1,000 ML IV SCH (19:45)
--- NOTE | 2016-10-12 19:53 | CONSULT ---
Consultation: REQUESTING PROVIDER: CONSULT REQUEST: We have been asked to medically evaluate this patient for ( specify). HISTORY OF PRESENT ILLNESS: REVIEW OF SYSTEMS: CONSTITUTIONAL: Absent: fever, chills, diaphoresis, generalized weakness, malaise, loss of appetite, weight change HEENT: Absent: rhinorrhea, nasal congestion, throat pain, throat swelling, difficulty swallowing, mouth swelling, ear pain, eye pain, visual changes CARDIOVASCULAR: Absent: chest pain, syncope, palpitations, irregular heart rate, lightheadedness , peripheral edema RESPIRATORY: Absent: cough, shortness of breath, dyspnea with exertion, orthopnea, wheezing, stridor, hemoptysis GASTROINTESTINAL: Absent: abdominal pain, abdominal distension, nausea, vomiting, diarrhea, constipation, melena, hematochezia GENITOURINARY: Absent: dysuria, frequency, urgency, hesitancy, hematuria, flank pain, genital pain MUSCULOSKELETAL: Absent: myalgia, arthralgia, joint swelling, back pain, neck pain SKIN: Absent: rash, itching, pallor HEMATOLOGIC/IMMUNOLOGIC: Absent: easy bleeding, easy bruising, lymphadenopathy, frequent infections ENDOCRINE: Absent: unexplained weight gain, unexplained weight loss, heat intolerance, cold intolerance NEUROLOGIC: Absent: headache, focal weakness or paresthesias, dizziness, unsteady gait, seizure, mental status changes, bladder or bowel incontinence PSYCHIATRIC: Absent: anxiety, depression, suicidal or homicidal ideation, hallucinations. PHYSICAL EXAMINATION Vital Signs - 24 hr 10/12/16 10/12/16 10/12/16 13:34 14:11 15:16 Temperature 100.5 F H Pulse Rate 91 H Pulse Rate [ 102 H 76 Apical] Respiratory 20 Rate Blood Pressure 89/57 Blood Pressure 92/58 75/45 [Right Arm] O2 Sat by Pulse 95 97 Oximetry (%) 10/12/16 10/12/16 10/12/16 16:08 17:05 17:32 Temperature Pulse Rate 73 Pulse Rate [ 69 78 Apical] Respiratory 20 24 Rate Blood Pressure 80/40 Blood Pressure 98/77 80/40 [Right Arm] O2 Sat by Pulse 96 97 Oximetry (%) 10/12/16 10/12/16 17:36 18:30 Temperature Pulse Rate Pulse Rate [ 91 H 77 Apical] Respiratory 24 16 Rate Blood Pressure Blood Pressure 99/44 114/70 [Right Arm] O2 Sat by Pulse 98 Oximetry (%) GENERAL: Awake, alert, and fully oriented, in no acute distress. HEAD: Normal with no signs of trauma. EYES: Pupils equal, round and reactive to light, extraocular movements intact, sclera anicteric, conjunctiva clear. No lid lag. EARS, NOSE, THROAT: Ears normal, nares patent, oropharynx clear without exudates. Moist mucous membranes. NECK: Normal range of motion, supple without lymphadenopathy, JVD, or masses. LUNGS: Breath sounds equal, clear to auscultation bilaterally. No wheezes, and no crackles. No accessory muscle use. HEART: Regular rate and rhythm, normal S1 and S2 without murmur, rub or gallop. ABDOMEN: Soft, nontender, not distended, normoactive bowel sounds, no guarding, no rebound, no masses. No hepatomegaly or splenomegaly. MUSCULOSKELETAL: Normal range of motion at all joints. No bony deformities or tenderness. No CVA tenderness. UPPER EXTREMITIES: 2+ pulses, warm, well-perfused. No cyanosis. No clubbing. Cap refill <2 seconds. No peripheral edema. LOWER EXTREMITIES: 2+ pulses, warm, well-perfused. No calf tenderness. No peripheral edema. NEUROLOGICAL: Cranial nerves II-XII intact. Normal speech. Normal gait. PSYCHIATRIC: Cooperative. Good eye contact. Appropriate mood and affect. SKIN: Warm, dry, normal turgor, no rashes or lesions noted. Laboratory Results - last 24 hr 10/12/16 15:26 Lactic Acid 2.2 H* Active Medications Generic Name Dose Route Start Last Admin Trade Name Freq PRN Reason Stop Dose Admin Chlorhexidine Gluconate 1 applic 10/12/16 22:00 Hibiclens For Decolonization - TP HS SONI Vasopressin 50 units/ Sodium 100 mls @ 24 mls/hr 10/12/16 17:15 10/12/16 17:32 Chloride IVPB 24 mls/hr TITR SONI Administration Protocol 0.2 UNITS/MIN Piperacillin Sod/Tazobactam Sod 50 mls @ 100 mls/hr 10/13/16 02:00 Zosyn 3.375gm Ivpb (Pre-Docked) IVPB Q8H-IV SONI Protocol Mupirocin 1 applic 10/12/16 22:00 Bactroban Ointment (For Decolonization) - NS 10/17/16 21:59 BID SONI Sodium Chloride 1,000 ml 10/12/16 12:23 10/12/16 12:58 Normal Saline - IV 1,000 ml Q20M PRN Administration MAP<65mm Hg OR SBP <90 ASSESSMENT/PLAN: Dispo: We will continue to follow the patient. Thank you for this consultative opportunity.
--- NOTE | 2016-10-12 20:09 | CONSULT ---
Consult - text type - Consultation Consultation Note: Pulm/CCM Pt seen and examined in ICU CC: sacral wound, hypotension HPI: Briefly ms Leyva is a 65 y/o woman with hx of breast CA, severe neuropathy with LE contracture, W/c bound, and resident of [place] off and on since last December with worsening sacral decubiti over last 3 months. She is followed by Dr Garcia from vascular and was already due for debridement in near future. In last 48hrs c/o general malaise, rigors, subjective fever, intermittent diaphoresis. Denies: LOC, falls, shortness of breath, chest pain, N/V/D. Sent to ED by [place]. In ED VS as follows. Temp Pulse Resp BP Pulse Ox 98.8 F 109 H 20 83/56 96 10/12/16 12:09 10/12/16 12:09 10/12/16 12:09 10/12/16 12:09 10/12/16 12:09 Given 1L of IVF, started on peripheral vasopressin, and covered with Pip/David. Seen by Dr Garcia, found sacral wound to be foul smelling with tunneling and necrotic tissue. WBC 14K, H/h wnl, Booked OR for debridement at 10 Am tomorrow. 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 Peripheral Neuropathy Cardio/Vascular AFIB Pulmonary COPD Past Surgical History Past Surgical History Cholecystectomy,Tonsillectomy Smoking History Smoking history Former smoker Aproximately how many 4 cigarettes per day Alcohol/Substance Use Hx Alcohol Use No Social History Usual Living Arrangement Long-Term ROS: 10pt review of systems unrevealing except as per HPI> Home Medications Medication Instructions Recorded Albuterol 0.083% Nebulizer Bella 1 neb NEB QID PRN 08/31/16 [Ventolin 0.083%] Amino Acids/Protein Hydrolys 30 ml PO BID 08/31/16 [Pro-Stat Sugar Free Liquid] Amox-Tr/K Cl [Augmentin - 875Mg 1 tab PO BID 08/31/16 Tablet] Ascorbic Acid [Vitamin C -] 500 mg PO DAILY 08/31/16 Azithromycin [Zithromax -] 1 tab PO DAILY 08/31/16 Baclofen 10 mg PO DAILY 08/31/16 Calcium Carbonate/Vitamin D3 [Eq 1 each PO BID 08/31/16 Calcium 500-Vit D3 400 Tab] Citalopram Hydrobromide [Celexa -] 20 mg PO DAILY 08/31/16 Diazepam [Valium] 5 mg PO HS 08/31/16 Docusate Sodium [Colace -] 100 mg PO DAILY 08/31/16 Enoxaparin [Lovenox -] 40 mg SQ DAILY 08/31/16 Guaifenesin [Robitussin -] 10 ml PO Q6H PRN 08/31/16 Loperamide HCl [Imodium A-D] 2 mg PO PRN 08/31/16 Magnesium Hydroxide [Milk of 400 mg PO PRN 08/31/16 Magnesia] Na Phos,M-B/Na Phos,Di-Ba [Fleet 133 ml RC PRN 08/31/16 Enema] Nystatin/Triamcinolone Top Cr 1 applic TP BID 08/31/16 [Mycolog II -] Sennosides [Senna] 8.6 mg PO HS 08/31/16 Zinc Sulfate 220 mg PO DAILY 08/31/16 Acetaminophen [Tylenol .Regular 650 mg PO Q4H PRN #0 tablet 09/20/16 Strength -] Arformoterol Tartrate [Brovana -] 1 amp NEB BID amp 09/20/16 Cefuroxime Axetil [Ceftin -] 500 mg PO BID 5 Days 09/20/16 Collagenase Clostridium Hist. 1 applic TP DAILY tube 09/20/16 [Santyl -] Polyethylene Glycol 3350 [Miralax 17 gm PO DAILY bottle 09/20/16 119 gm Btl -] CBC, BMP 10/12/16 11:59 10/12/16 11:59 Lab Results WBC 14.7 K/mm3 (4.0-10.0) H D 10/12/16 11:59 RBC 3.45 M/mm3 (3.60-5.2) L 10/12/16 11:59 Hgb 10.3 GM/dL (10.7-15.3) L D 10/12/16 11:59 Hct 31.1 % (32.4-45.2) L 10/12/16 11:59 MCV 90.1 fl (80-96) 10/12/16 11:59 MCHC 33.0 g/dl (32.0-36.0) 10/12/16 11:59 RDW 15.6 % (11.6-15.6) 10/12/16 11:59 Plt Count 399 K/MM3 (134-434) D 10/12/16 11:59 Sodium 130 mmol/L (136-145) L 10/12/16 11:59 Potassium 5.0 mmol/L (3.5-5.1) 10/12/16 11:59 Chloride 96 mmol/L (98-107) L 10/12/16 11:59 Carbon Dioxide 26 mmol/L (21-32) 10/12/16 11:59 Anion Gap 8 (8-16) 10/12/16 11:59 BUN 12 mg/dL (7-18) D 10/12/16 11:59 Creatinine 0.3 mg/dL (0.55-1.02) L 10/12/16 11:59 Random Glucose 124 mg/dL (74-106) H D 10/12/16 11:59 Calcium 8.6 mg/dL (8.5-10.1) 10/12/16 11:59 Blood Type O POSITIVE 10/12/16 11:59 Antibody Screen Negative 10/12/16 11:59 INR 1.37 (0.82-1.09) H 10/12/16 11:59 Vital Signs Temp 98.4 F 10/12/16 19:59 Pulse 84 10/12/16 19:59 Resp 25 H 10/12/16 19:59 BP 109/60 10/12/16 19:59 Pulse Ox 98 10/12/16 19:59 Intake & Output 10/11/16 10/12/16 10/12/16 23:59 11:59 23:59 Weight 49.895 kg Other: Height 4 ft 11 in Body Mass Index (BMI) 22.2 Weight Measurement Method Est/Stated by Patient EKG: SR, occ PAC, Twave flattening in lateral leads, non ischemic pattern CXR: clear, without acute pathology PE: Constitutional: awake, alert, without significant distress Eyes: Yes: WNL HENT: Yes: WNL Neck: Yes: WNL Cardiovascular: Yes: Pulse Irregular Respiratory: Yes: On Nasal O2 Gastrointestinal: Yes: WNL Renal/: Yes: Other Breast(s): Yes: Other Musculoskeletal: Yes: Back Pain, Muscle Weakness, chronic Extremities: Yes: contracted LE bilateraly, trace LE dependent edema, some reddening c/f stage I on bilateral heels Edema: trace LE Peripheral Pulses WNL: Yes Integumentary: Yes: Pressure Ulcer sacraum, STAGE IV with escar, dressed Wound/Incision: Yes: Dressing Removed (STAGE 4 SACRAL NECROTIC ULCER) Neurological: Yes: Pre-Existing Deficit, Weakness ...Motor Strength: LLE, RLE Psychiatric: intact, appropriate mood and affect. A/ 66 y/o woman, WC bound at baseline with known stage IV sacral ulcer, now with fever, hypotension, c/w SIRS response in setting of infected and tunneled wound booked for OR in am with Dr Garcia P/ -broad spectrum abx -fluid resuscitation, attempt to wean vasopressin---TLC if unable after appropriate fluid -trend lactate -NPO at midnight, hold lovenox in am -Surgery plan as per Dr Garcia -observe overnight -SCD for prophy, add GI prophy if cont to require vasopressor support Ryne Mijares [facility] [id number] Current Active Problems Sepsis (Acute) Critical Care Total Critical Care Time (in minutes): 35 Critical Care Statement: The care of this patient involved high complexity decision making to prevent further life threatening deterioration of the patient 's condition and/or to evalute & treat vital organ system(s) failure or risk of failure.
[2016-10-12] MEDS: MUPIROCIN 2% TOPICAL OINTMENT 22 GM TUBE TP SCH (22:00)
[2016-10-12] MEDS ORDERED: VANCOMYCIN 1,000 MG in DEXTROSE 5%-WATER - 250 ML IVPB SCH (22:00)
[2016-10-12] MEDS: MUPIROCIN 2% TOPICAL OINTMENT FOR DECOLONIZATION NS SCH (22:00)
[2016-10-12] MEDS: NYSTATIN 100,000 UNIT/GM TOPICAL CREAM 15 GM TUBE TP SCH (22:00)
[2016-10-12] MEDS: CHLORHEXIDINE GLUCONATE 4% CLEANSER FOR DECOLONIZATION TP SCH (22:00)
[2016-10-12] MEDS: diazePAM 5 MG TABLET PO SCH (22:00)
[2016-10-12] MEDS: BACLOFEN 10 MG TABLET (FP) PO SCH (23:00)
[2016-10-13] MEDS: PIPERACILLIN/TAZOB 3.375 GM 50 ML IVPB SCH ×3 (01:53→19:24)
[2016-10-13] MEDS: ACETAMINOPHEN 325 MG TABLET (FP) PO PRN ×3 (02:16→19:24)
[2016-10-13] MEDS ORDERED: SODIUM CHLORIDE 0.9% 1000 ML INFUS.BAG IV ONE (04:10)
[2016-10-13] MEDS: SODIUM CHLORIDE 0.9% 1000 ML INFUS.BAG IV PRN (04:23)
[2016-10-13 05:41] LABS: BASOPHIL 0.3 % (0-2.0); EOSINOPHIL 1.7 % (0-4.5); MCHC 33.1 g/dl (32.0-36.0); MEAN CELL VOLUME 90.6 fl (80-96); MEAN PLT VOLUME 6.5 fl (7.5-11.1); NEUTROPHILS 83.8 % (42.8-82.8); PLATELET COUNT 412 K/MM3 (134-434); RDW 15.9 % (11.6-15.6); WHITE BLOOD COUNT 12.4 K/mm3 (4.0-10.0)
[2016-10-13 06:06] LABS: ALBUMIN 1.3 g/dl (3.4-5.0); ALK PHOS 222 U/L (45-117); ANION GAP 7 (8-16); BILIRUBIN,TOTAL 0.2 mg/dL (0.2-1.0); CO2 26 mmol/L (21-32); CREATININE 0.2 mg/dL (0.55-1.02); GLUCOSE,RANDOM 97 mg/dL (74-106); MAGNESIUM 1.8 mg/dL (1.8-2.4); SGOT/AST 17 U/L (15-37); SGPT/ALT 21 U/L (12-78); TOT PROT 4.3 g/dl (6.4-8.2)
[2016-10-13 07:33] VITALS: BMI 22.8
--- NOTE | 2016-10-13 07:33 | CON.NEP ---
Consult Consult Specialty:: Nephrology Referred by:: Dr Marrero Reason for Consultation:: hyponatremia - History of Present Illness Chief Complaint: none History of Present Illness: This lady was sent for evaluation of sacral decubiti. She was found to have hyponatremia and nephrology was called. She was given 2.5 liters of normal saline and her sodium has improved. She has no nausea or vomiting and no diarrhea. 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 Cardio/Vascular: Yes: AFIB Pulmonary: Yes: COPD - Past Surgical History Past Surgical History: Yes: Cholecystectomy, Tonsillectomy - Alcohol/Substance Use Hx Alcohol Use: No - Smoking History Smoking history: Former smoker Have you smoked in the past 12 months: No Aproximately how many cigarettes per day: 4 - Social History Usual Living Arrangement: [facility] Home Medications - Allergies Allergies/Adverse Reactions: Allergies Allergy/AdvReac Type Severity Reaction Status Date / Time epinephrine Allergy Verified 10/12/16 12:09 procaine Allergy Verified 10/12/16 12:09 sulfamethoxazole Allergy Verified 10/12/16 12:09 trimethoprim Allergy Verified 10/12/16 12:09 - Home Medications Home Medications: Ambulatory Orders Albuterol 0.083% Nebulizer Bella [Ventolin 0.083%] 1 neb NEB QID PRN 08/31/16 Amino Acids/Protein Hydrolys [Pro-Stat Sugar Free Liquid] 30 ml PO BID 08/31/16 Amox-Tr/K Cl [Augmentin - 875Mg Tablet] 1 tab PO BID 08/31/16 Ascorbic Acid [Vitamin C -] 500 mg PO DAILY 08/31/16 Azithromycin [Zithromax -] 1 tab PO DAILY 08/31/16 Baclofen 10 mg PO DAILY 08/31/16 Calcium Carbonate/Vitamin D3 [Eq Calcium 500-Vit D3 400 Tab] 1 each PO BID 08/31 Citalopram Hydrobromide [Celexa -] 20 mg PO DAILY 08/31/16 Diazepam [Valium] 5 mg PO HS 08/31/16 Docusate Sodium [Colace -] 100 mg PO DAILY 08/31/16 Enoxaparin [Lovenox -] 40 mg SQ DAILY 08/31/16 Guaifenesin [Robitussin -] 10 ml PO Q6H PRN 08/31/16 Loperamide HCl [Imodium A-D] 2 mg PO PRN 08/31/16 Magnesium Hydroxide [Milk of Magnesia] 400 mg PO PRN 08/31/16 Na Phos,M-B/Na Phos,Di-Ba [Fleet Enema] 133 ml RC PRN 08/31/16 Nystatin/Triamcinolone Top Cr [Mycolog II -] 1 applic TP BID 08/31/16 Sennosides [Senna] 8.6 mg PO HS 08/31/16 Zinc Sulfate 220 mg PO DAILY 08/31/16 Acetaminophen [Tylenol .Regular Strength -] 650 mg PO Q4H PRN #0 tablet Arformoterol Tartrate [Brovana -] 1 amp NEB BID amp 09/20/16 Cefuroxime Axetil [Ceftin -] 500 mg PO BID 5 Days 09/20/16 Collagenase Clostridium Hist. [Santyl -] 1 applic TP DAILY tube 09/20/16 Polyethylene Glycol 3350 [Miralax 119 gm Btl -] 17 gm PO DAILY bottle 09/20/16 Review of Systems - Review of Systems Constitutional: reports: No Symptoms Eyes: reports: No Symptoms HENT: reports: Hearing Loss Neck: reports: No Symptoms Cardiovascular: reports: No Symptoms Respiratory: reports: No Symptoms Gastrointestinal: reports: No Symptoms Genitourinary: reports: No Symptoms Breasts: reports: No Symptoms Reported Musculoskeletal: reports: No Symptoms Integumentary: reports: No Symptoms Neurological: reports: No Symptoms Endocrine: reports: No Symptoms Hematology/Lymphatic: reports: No Symptoms Nephrology Consult - Height Height: 4 ft 11 in - Weight Weight: 113 lb 5.082 oz - BMI Body Mass Index (BMI): 22.8 - Lab Results CBC,BMP: CBC, BMP 10/13/16 05:05 10/13/16 05:05 Anion Gap: Anion Gap Anion Gap 7 (8-16) L 10/13/16 05:05 - Imaging Chest X-ray: Report Reviewed - Physical Examination Vital Signs: Vital Signs Temperature 98.4 F 10/13/16 06:00 Pulse Rate 62 10/13/16 06:00 Respiratory Rate 24 10/13/16 06:00 Blood Pressure 118/73 10/13/16 06:00 O2 Sat by Pulse Oximetry (%) 98 10/12/16 21:00 Constitutional: Yes: Well Nourished, No Distress Eyes: Yes: WNL, Conjunctiva Clear HENT: Yes: Atraumatic, Normocephalic Neck: Yes: Supple, Trachea Midline Cardiovascular: Yes: Pulse Irregular, Murmur Respiratory: Yes: Regular, CTA Bilaterally Gastrointestinal: Yes: Normal Bowel Sounds Musculoskeletal: Yes: WNL Extremities: Yes: WNL Edema: No Neurological: Yes: Alert, Oriented (hearing impaired) Assessment/Plan IMPRESSION HYponatremia resolved with saline. Was likely volume depleted decubiti leukocytosis hearing impaired PLAN would continue hydration as necessary antibiotics debridement U/A, tsh and cortisol her sodium corrected quickly but it wasnt too low to begin with MV
--- NOTE | 2016-10-13 09:08 | PN ---
Progress Note (short form) - Note Progress Note: ID consult dictated imp/reccd 66 year old female with metastatic breast cancer with bony mets, cord compression and paraplegia admitted for debridement of large foulsmelling stage 4 decubitus she was admitted to the ICU for hypotension she received ivf resuscitation she is on levophed she is alert no complaints other then muscle spasm no fevers or chills wears a diaper on PE she has a large stage 4 sacral ulcer that is necrotic and foulsmelling she has two smaller ischial ulcers as well she received vancomycin and zosyn in the ED after blood cultures were drawn sepsis secondary to infected decubitus ulcers continue vancomycin and zosyn debridement f/u cultures ivf/pressors as needed metastatic breast cancer Problem List - Problems (1) Sepsis Code(s): A41.9 - SEPSIS, UNSPECIFIED ORGANISM (2) Infected decubitus ulcer Code(s): L89.90 - PRESSURE ULCER OF UNSPECIFIED SITE, UNSPECIFIED STAGE L08.9 - LOCAL INFECTION OF THE SKIN AND SUBCUTANEOUS TISSUE, UNSP Qualified Code(s): - (3) Metastatic breast cancer Code(s): C50.919 - MALIGNANT NEOPLASM OF UNSP SITE OF UNSPECIFIED FEMALE BREAST
[2016-10-13] MEDS: AMINO ACIDS/PROTEIN HYDROLYS 30 ML LIQUID.PKT PO SCH (10:32)
[2016-10-13] MEDS: ZINC SULFATE 220 MG CAPSULE (FP) PO SCH (10:32)
[2016-10-13] MEDS: MULTIVITAMINS (DAILY MVI) TABLET (FP) PO SCH (10:32)
[2016-10-13] MEDS: VANCOMYCIN 1 GRAM (PRE-DOCKED) 1,000 MG/250 ML BAG IVPB SCH (10:33)
[2016-10-13] MEDS: NYSTATIN 100,000 UNIT/GM TOPICAL CREAM 15 GM TUBE TP SCH ×2 (10:34→21:09)
[2016-10-13] MEDS: MUPIROCIN 2% TOPICAL OINTMENT FOR DECOLONIZATION NS SCH ×3 (10:34→21:27)
[2016-10-13] MEDS: BACLOFEN 10 MG TABLET (FP) PO SCH ×2 (10:34→22:17)
[2016-10-13] MEDS: MUPIROCIN 2% TOPICAL OINTMENT 22 GM TUBE TP SCH ×2 (10:35→21:08)
[2016-10-13] MEDS: CITALOPRAM HYDROBROMIDE 10 MG TABLET (FP) PO SCH (10:36)
[2016-10-13] MEDS ORDERED: LIDOCAINE HCL 1%, 10 MG/ML (20ML VIAL) ONE (12:18)
--- NOTE | 2016-10-13 12:25 | PN ---
Teaching Attending Note Name of Resident: Charlie Garcia ATTENDING PHYSICIAN STATEMENT I saw and evaluated the patient. I reviewed the resident's note and discussed the case with the resident. I agree with the resident's findings and plan as documented. SUBJECTIVE: Patient seen and examined in the ICU. Awake and alert. Currently off pressors. Refused OR earlier when anesthesia came to evaluate her. Intake & Output 10/10/16 10/11/16 10/12/16 10/13/16 23:59 23:59 23:59 23:59 Intake Total 1300 200 Balance 1300 200 Weight 110 lb 113 lb 5.082 oz Last Vital Signs Temp Pulse Resp BP Pulse Ox 98.4 F 61 24 118/73 98 10/13/16 06:00 10/13/16 11:29 10/13/16 06:00 10/13/16 06:00 10/13/16 11:29 Active Medications Acetaminophen (Tylenol -) 650 mg PO Q6H PRN PRN Reason: FEVER OR PAIN Last Admin: 10/13/16 10:53 Dose: 650 mg Albuterol/Ipratropium (Duoneb -) 1 amp NEB Q6H PRN PRN Reason: SHORTNESS OF BREATH Amino Acids (Prosource No Carb Liquid Pkt) 30 ml PO BID@0800,1730 [facility] Last Admin: 10/13/16 10:32 Dose: 30 ml Baclofen (Lioresal -) 10 mg PO BID [facility] Last Admin: 10/13/16 10:34 Dose: 5 mg Chlorhexidine Gluconate (Hibiclens For Decolonization -) 1 applic TP HS [facility] Last Admin: 10/12/16 22:00 Dose: Not Given Citalopram Hydrobromide (Celexa -) 10 mg PO DAILY [facility] Last Admin: 10/13/16 10:36 Dose: Not Given Diazepam (Valium -) 5 mg PO HS [facility] Last Admin: 10/12/16 22:00 Dose: Not Given Vasopressin 50 units/ Sodium (Chloride) 100 mls @ 24 mls/hr IVPB TITR SONI; 0.2 UNITS/MIN PRN Reason: Protocol Last Admin: 10/12/16 17:32 Dose: 24 mls/hr Piperacillin Sod/Tazobactam Sod (Zosyn 3.375gm Ivpb (Pre-Docked)) 50 mls @ 100 mls/hr IVPB Q8H-IV SONI PRN Reason: Protocol Last Admin: 10/13/16 10:33 Dose: 100 mls/hr Multivitamins/Minerals/Vitamin C (Tab-A-Vit -) 1 tab PO DAILY SONI Last Admin: 10/13/16 10:32 Dose: 1 tab Mupirocin (Bactroban Ointment (For Decolonization) -) 1 applic NS BID SONI Stop: 10/17/16 21:59 Last Admin: 10/13/16 10:34 Dose: 1 applic Mupirocin (Bactroban 2% Ointment -) 1 applic TP BID SONI Last Admin: 10/13/16 10:35 Dose: Not Given Nystatin (Mycostatin Cream -) 1 applic TP BID SONI Last Admin: 10/13/16 10:34 Dose: 1 applic Sodium Chloride (Normal Saline -) 1,000 ml IV Q20M PRN PRN Reason: MAP<65mm Hg OR SBP <90 Last Admin: 10/13/16 04:23 Dose: 1,000 ml Vancomycin HCl (Vancomycin (Pre-Docked)) 1,000 mg IVPB DAILY SONI PRN Reason: Protocol Last Admin: 10/13/16 10:33 Dose: 1,000 mg Zinc Sulfate (Orazinc -) 220 mg PO DAILY SONI Last Admin: 10/13/16 10:32 Dose: 220 mg Constitutional: awake, alert, agitated, NAD Eyes: Yes: WNL HENT: Yes: WNL Neck: Yes: WNL Cardiovascular: Yes: Irregular Respiratory: Yes: On Nasal O2 Gastrointestinal: Yes: WNL Renal/: Yes: Other Breast(s): Yes: Other Musculoskeletal: Yes: Back Pain, Muscle Weakness, chronic Extremities: Yes: contracted LE bilateraly, trace LE dependent edema, some reddening c/f stage I on bilateral heels Edema: trace LE Peripheral Pulses WNL: Yes Integumentary: Yes: Pressure Ulcer sacrum, STAGE IV with escar Wound/Incision: Yes: STAGE 4 SACRAL NECROTIC ULCER Neurological: Yes: Pre-Existing Deficit, Weakness ...Motor Strength: LLE, RLE Psychiatric: agitated Laboratory Results - last 24 hr 10/12/16 10/12/16 10/12/16 11:59 11:59 11:59 WBC 14.7 H D RBC 3.45 L Hgb 10.3 L D Hct 31.1 L MCV 90.1 MCH 29.8 MCHC 33.0 RDW 15.6 Plt Count 399 D MPV 6.8 L Neutrophils % 87.6 H D Lymphocytes % 5.7 L D Monocytes % 5.7 Eosinophils % 0.7 Basophils % 0.3 INR 1.37 H PTT (Actin FS) 30.3 VBG pH POC VBG pCO2 POC VBG pO2 Mixed VBG HCO3 Sodium 130 L Potassium 5.0 Chloride 96 L Carbon Dioxide 26 Anion Gap 8 BUN 12 D Creatinine 0.3 L Creat Clearance w eGFR > 60 Random Glucose 124 H D Lactic Acid Calcium 8.6 Phosphorus Magnesium Total Bilirubin 0.3 AST 41 H D ALT 25 Alkaline Phosphatase 384 H D Creatine Kinase 116 Troponin I < 0.02 Total Protein 5.3 L Albumin 1.5 L D Blood Type Antibody Screen 10/12/16 10/12/16 10/12/16 11:59 12:30 12:30 WBC RBC Hgb Hct MCV MCH MCHC RDW Plt Count MPV Neutrophils % Lymphocytes % Monocytes % Eosinophils % Basophils % INR PTT (Actin FS) VBG pH 7.46 H POC VBG pCO2 37.6 L POC VBG pO2 49.6 H Mixed VBG HCO3 26.3 H Sodium Potassium Chloride Carbon Dioxide Anion Gap BUN Creatinine Creat Clearance w eGFR Random Glucose Lactic Acid 1.7 Calcium Phosphorus Magnesium Total Bilirubin AST ALT Alkaline Phosphatase Creatine Kinase Troponin I Total Protein Albumin Blood Type O POSITIVE Antibody Screen Negative 10/12/16 10/12/16 10/12/16 15:26 19:30 23:00 WBC RBC Hgb Hct MCV MCH MCHC RDW Plt Count MPV Neutrophils % Lymphocytes % Monocytes % Eosinophils % Basophils % INR PTT (Actin FS) VBG pH POC VBG pCO2 POC VBG pO2 Mixed VBG HCO3 Sodium Potassium Chloride Carbon Dioxide Anion Gap BUN Creatinine Creat Clearance w eGFR Random Glucose Lactic Acid 2.2 H* 2.6 H* 1.9 Calcium Phosphorus Magnesium Total Bilirubin AST ALT Alkaline Phosphatase Creatine Kinase Troponin I Total Protein Albumin Blood Type Antibody Screen 10/13/16 10/13/16 05:05 05:05 WBC 12.4 H RBC 2.99 L Hgb 9.0 L D Hct 27.1 L MCV 90.6 MCH 30.0 MCHC 33.1 RDW 15.9 H Plt Count 412 MPV 6.5 L Neutrophils % 83.8 H Lymphocytes % 8.3 D Monocytes % 5.9 Eosinophils % 1.7 D Basophils % 0.3 INR PTT (Actin FS) VBG pH POC VBG pCO2 POC VBG pO2 Mixed VBG HCO3 Sodium 139 Potassium 3.5 D Chloride 106 D Carbon Dioxide 26 Anion Gap 7 L BUN 8 D Creatinine 0.2 L D Creat Clearance w eGFR > 60 Random Glucose 97 D Lactic Acid Calcium 8.0 L Phosphorus 3.0 Magnesium 1.8 D Total Bilirubin 0.2 D AST 17 D ALT 21 Alkaline Phosphatase 222 H D Creatine Kinase Troponin I Total Protein 4.3 L Albumin 1.3 L Blood Type Antibody Screen IMP: Septic Shock due to an infected sacral decubitus ulcer Hypotension Infected and tunneled wound booked Wheelchair bound PLAN: For debridement per surgery IVF ABX per ID Pressors as needed for MAP < 65 Critical Care Total Critical Care Time (in minutes): 35 Critical Care Statement: The care of this patient involved high complexity decision making to prevent further life threatening deterioration of the patient 's condition and/or to evalute & treat vital organ system(s) failure or risk of failure.
--- NOTE | 2016-10-13 12:39 | PN ---
Progress Note (short form) - Note Progress Note: Vascular Surgery Pt seen and examined. Infected stage 4 sacral ulcer. Debridement performed -- skin, subcutaneous tissue. Pus was cultured and sent off. Pt will need OR debridement on sunday at 10am. she was scheduled today but refused. Also pt needs to be optimized, currently on vasopressin Saline moist dressing changes daily Luis Garcia DO
[2016-10-13] MEDS ORDERED: SODIUM CHLORIDE 1,000 ML IV SCH (13:00)
--- NOTE | 2016-10-13 13:00 | PN ---
Physical Exam: SUBJECTIVE: Patient seen and examined at bedside in ICU. Pt states she has no chest pain, sob. She continues to state that she does not want to go the OR and does not want anesthesia. She states she normally gets debridements in wound clinic and does not want to go to the OR. OBJECTIVE: Vital Signs Temperature 98.4 F 10/13/16 06:00 Pulse Rate 61 10/13/16 11:29 Respiratory Rate 24 10/13/16 06:00 Blood Pressure 118/73 10/13/16 06:00 O2 Sat by Pulse Oximetry (%) 98 10/13/16 11:29 GENERAL: The patient is awake, alert, and fully oriented, in no acute distress. EYES: extraocular movements intact, sclera anicteric, conjunctiva clear. No ptosis. ENT: Ears normal, nares patent LUNGS: Diminished breath sounds HEART: irregular rate and rhythm, S1, S2 ABDOMEN: Soft, nontender, normoactive bowel sounds EXTREMITIES: contracted b/l le SKIN: +stage 4 decubitus ulcer approximately 7x7 inches in overall size Laboratory Results - last 24 hr 10/12/16 10/12/16 10/12/16 15:26 19:30 23:00 WBC RBC Hgb Hct MCV MCH MCHC RDW Plt Count MPV Neutrophils % Lymphocytes % Monocytes % Eosinophils % Basophils % Sodium Potassium Chloride Carbon Dioxide Anion Gap BUN Creatinine Creat Clearance w eGFR Random Glucose Lactic Acid 2.2 H* 2.6 H* 1.9 Calcium Phosphorus Magnesium Total Bilirubin AST ALT Alkaline Phosphatase Total Protein Albumin 10/13/16 10/13/16 05:05 05:05 WBC 12.4 H RBC 2.99 L Hgb 9.0 L D Hct 27.1 L MCV 90.6 MCH 30.0 MCHC 33.1 RDW 15.9 H Plt Count 412 MPV 6.5 L Neutrophils % 83.8 H Lymphocytes % 8.3 D Monocytes % 5.9 Eosinophils % 1.7 D Basophils % 0.3 Sodium 139 Potassium 3.5 D Chloride 106 D Carbon Dioxide 26 Anion Gap 7 L BUN 8 D Creatinine 0.2 L D Creat Clearance w eGFR > 60 Random Glucose 97 D Lactic Acid Calcium 8.0 L Phosphorus 3.0 Magnesium 1.8 D Total Bilirubin 0.2 D AST 17 D ALT 21 Alkaline Phosphatase 222 H D Total Protein 4.3 L Albumin 1.3 L Active Medications Generic Name Dose Route Start Last Admin Trade Name Roya PRN Reason Stop Dose Admin Acetaminophen 650 mg 10/12/16 19:23 10/13/16 10:53 Tylenol - PO 650 mg Q6H PRN Administration FEVER OR PAIN Albuterol/Ipratropium 1 amp 10/12/16 19:23 Duoneb - NEB Q6H PRN SHORTNESS OF BREATH Amino Acids 30 ml 10/13/16 08:00 10/13/16 10:32 Prosource No Carb Liquid Pkt PO 30 ml BID@0800,1730 SONI Administration Baclofen 10 mg 10/12/16 22:00 10/13/16 10:34 Lioresal - PO 5 mg BID SONI Administration Chlorhexidine Gluconate 1 applic 10/12/16 22:00 10/12/16 22:00 Hibiclens For Decolonization - TP Not Given HS SONI Citalopram Hydrobromide 10 mg 10/13/16 10:00 10/13/16 10:36 Celexa - PO Not Given DAILY SONI Diazepam 5 mg 10/12/16 22:00 10/12/16 22:00 Valium - PO Not Given HS SONI Vasopressin 50 units/ Sodium 100 mls @ 24 mls/hr 10/12/16 17:15 10/12/16 17:32 Chloride IVPB 24 mls/hr TITR SONI Administration Protocol 0.2 UNITS/MIN Piperacillin Sod/Tazobactam Sod 50 mls @ 100 mls/hr 10/13/16 02:00 10/13/16 10: 33 Zosyn 3.375gm Ivpb (Pre-Docked) IVPB 100 mls/hr Q8H-IV SONI Administration Protocol Multivitamins/Minerals/Vitamin C 1 tab 10/13/16 10:00 10/13/16 10:32 Tab-A-Vit - PO 1 tab DAILY SONI Administration Mupirocin 1 applic 10/12/16 22:00 10/13/16 10:34 Bactroban Ointment (For Decolonization) - NS 10/17/16 21:59 1 applic BID SONI Administration Mupirocin 1 applic 10/12/16 22:00 10/13/16 10:35 Bactroban 2% Ointment - TP Not Given BID SONI Nystatin 1 applic 10/12/16 22:00 10/13/16 10:34 Mycostatin Cream - TP 1 applic BID SONI Administration Sodium Chloride 1,000 ml 10/12/16 12:23 10/13/16 04:23 Normal Saline - IV 1,000 ml Q20M PRN Administration MAP<65mm Hg OR SBP <90 Vancomycin HCl 1,000 mg 10/13/16 10:00 10/13/16 10:33 Vancomycin (Pre-Docked) IVPB 1,000 mg DAILY SONI Administration Protocol Zinc Sulfate 220 mg 10/13/16 10:00 10/13/16 10:32 Orazinc - PO 220 mg DAILY SONI Administration ASSESSMENT/PLAN: 66 y/o F w/PMH of breast CA, severe neuropathy with LE contracture, from [place] admitted to ICU for septic shock secondary to decub ulcer. -Septic shock secondary to decub ulcer -NS @ 75 ml/hr; vasopressin, taper; maintain MAP > 65 -c/w vanco, zosyn -tylenol for fevers -Debridement done by surgery today - f/u CBC this afternoon -Will be scheduled for OR on Sunday -f/u BCx, UCx -ID on board -Anxiety/Depression -c/w celexa, valium -FEN -NS @ 75 ml/hr -Hyponatremia now resolved. -Regular diet, NPO after midnight on Sunday -Dispo: -Monitor in ICU for now as pt is on and off pressors Visit type - Emergency Visit Emergency Visit: Yes ED Registration Date: 10/12/16 Care time: The patient presented to the Emergency Department on the above date and was hospitalized for further evaluation of their emergent condition. - New Patient This patient is new to me today: Yes Date on this admission: 10/13/16 - Critical Care Critical Care patient: Yes Total Critical Care Time (in minutes): 40 Critical Care Statement: The care of this patient involved high complexity decision making to prevent further life threatening deterioration of the patient 's condition and/or to evalute & treat vital organ system(s) failure or risk of failure.
[2016-10-13] MEDS ORDERED: ARFORMOTEROL TARTRATE 15 MCG/2 ML VIAL NEB ONE (13:03)
--- NOTE | 2016-10-13 17:01 | PN ---
Progress Note, Physician Chief Complaint: AWAKE, IN ICU DAUGHTER BEDSIDE FEELING BETTER - Current Medication List Current Medications: Active Medications Acetaminophen (Tylenol -) 650 mg PO Q6H PRN PRN Reason: FEVER OR PAIN Last Admin: 10/13/16 10:53 Dose: 650 mg Albuterol/Ipratropium (Duoneb -) 1 amp NEB Q6H PRN PRN Reason: SHORTNESS OF BREATH Amino Acids (Prosource No Carb Liquid Pkt) 30 ml PO BID@0800,1730 [facility] Last Admin: 10/13/16 10:32 Dose: 30 ml Baclofen (Lioresal -) 10 mg PO BID [facility] Last Admin: 10/13/16 10:34 Dose: 5 mg Chlorhexidine Gluconate (Hibiclens For Decolonization -) 1 applic TP HS [facility] Last Admin: 10/12/16 22:00 Dose: Not Given Citalopram Hydrobromide (Celexa -) 10 mg PO DAILY [facility] Last Admin: 10/13/16 10:36 Dose: Not Given Diazepam (Valium -) 5 mg PO HS [facility] Last Admin: 10/12/16 22:00 Dose: Not Given Vasopressin 50 units/ Sodium (Chloride) 100 mls @ 24 mls/hr IVPB TITR [facility]ONI; 0.2 UNITS/MIN PRN Reason: Protocol Last Admin: 10/12/16 17:32 Dose: 24 mls/hr Piperacillin Sod/Tazobactam Sod (Zosyn 3.375gm Ivpb (Pre-Docked)) 50 mls @ 100 mls/hr IVPB Q8H-IV [facility]ONI PRN Reason: Protocol Last Admin: 10/13/16 10:33 Dose: 100 mls/hr Sodium Chloride (Normal Saline -) 1,000 mls @ 75 mls/hr IV ASDIR [facility] Multivitamins/Minerals/Vitamin C (Tab-A-Vit -) 1 tab PO DAILY [facility] Last Admin: 10/13/16 10:32 Dose: 1 tab Mupirocin (Bactroban Ointment (For Decolonization) -) 1 applic NS BID [facility] Stop: 10/17/16 21:59 Last Admin: 10/13/16 10:34 Dose: 1 applic Mupirocin (Bactroban 2% Ointment -) 1 applic TP BID [facility] Last Admin: 10/13/16 10:35 Dose: Not Given Nystatin (Mycostatin Cream -) 1 applic TP BID [facility] Last Admin: 10/13/16 10:34 Dose: 1 applic Sodium Chloride (Normal Saline -) 1,000 ml IV Q20M PRN PRN Reason: MAP<65mm Hg OR SBP <90 Last Admin: 10/13/16 04:23 Dose: 1,000 ml Vancomycin HCl (Vancomycin (Pre-Docked)) 1,000 mg IVPB DAILY [facility] PRN Reason: Protocol Last Admin: 10/13/16 10:33 Dose: 1,000 mg Zinc Sulfate (Orazinc -) 220 mg PO DAILY [facility] Last Admin: 10/13/16 10:32 Dose: 220 mg - Objective Vital Signs: Vital Signs Temperature 98.4 F 10/13/16 06:00 Pulse Rate 61 10/13/16 11:29 Respiratory Rate 24 10/13/16 06:00 Blood Pressure 118/73 10/13/16 06:00 O2 Sat by Pulse Oximetry (%) 98 10/13/16 11:29 Constitutional: Yes: No Distress Eyes: Yes: WNL HENT: Yes: WNL Neck: Yes: WNL Cardiovascular: Yes: WNL Respiratory: Yes: WNL Gastrointestinal: Yes: WNL Genitourinary: Yes: Incontinence Musculoskeletal: Yes: Muscle Weakness Extremities: Yes: WNL Edema: No Peripheral Pulses WNL: Yes Integumentary: Yes: Pressure Ulcer Wound/Incision: Yes: Dressing Dry and Intact Neurological: Yes: Pre-Existing Deficit ...Motor Strength: LLE, RLE Psychiatric: Yes: Other Labs: CBC, BMP 10/13/16 05:05 INR, PTT INR 1.37 (0.82-1.09) H 10/12/16 11:59 Assessment/Plan BP SUPPORT WITH VASOPRESSIN IV ABX RESP SUPPORT 02 2L NC TRANSFER TO TELE
[2016-10-13 17:05] LABS: BASOPHIL 0.2 % (0-2.0); EOSINOPHIL 1.8 % (0-4.5); MCH 29.2 pg (25.7-33.7); MCHC 32.2 g/dl (32.0-36.0); MEAN CELL VOLUME 90.7 fl (80-96); MEAN PLT VOLUME 6.7 fl (7.5-11.1); NEUTROPHILS 84.8 % (42.8-82.8); PLATELET COUNT 405 K/MM3 (134-434); RDW 15.8 % (11.6-15.6); WHITE BLOOD COUNT 12.1 K/mm3 (4.0-10.0)
[2016-10-13] MEDS: VASOPRESSIN 50 UNITS in SODIUM CHLORIDE 97.5 ML IVPB SCH (19:24)
[2016-10-13] MEDS: diazePAM 5 MG TABLET PO SCH (19:36)
[2016-10-13] MEDS ORDERED: PT OWN MED DRAWER 7, Y5N ONE (21:06)
[2016-10-13] MEDS: CHLORHEXIDINE GLUCONATE 4% CLEANSER FOR DECOLONIZATION TP SCH (21:08)
[2016-10-13] MEDS ORDERED: DOPAMINE 400 MG/D5W - 250 ML IVPB ONE (23:31)
[2016-10-14] MEDS: ACETAMINOPHEN 325 MG TABLET (FP) PO PRN ×2 (00:07→08:45)
[2016-10-14] MEDS: DOPAMINE 400 MG/D5W - 250 ML IVPB SCH ×2 (00:31→23:45)
[2016-10-14] MEDS: BACLOFEN 10 MG TABLET (FP) PO SCH ×3 (00:33→23:44)
[2016-10-14] MEDS: PIPERACILLIN/TAZOB 3.375 GM 50 ML IVPB SCH ×3 (02:04→17:40)
[2016-10-14 05:57] LABS: BASOPHIL 0.2 % (0-2.0); EOSINOPHIL 1.8 % (0-4.5); MCH 29.5 pg (25.7-33.7); MCHC 32.4 g/dl (32.0-36.0); MEAN CELL VOLUME 91.1 fl (80-96); MEAN PLT VOLUME 6.9 fl (7.5-11.1); NEUTROPHILS 84.9 % (42.8-82.8); PLATELET COUNT 396 K/MM3 (134-434); RDW 15.8 % (11.6-15.6); WHITE BLOOD COUNT 12.3 K/mm3 (4.0-10.0)
[2016-10-14 06:18] LABS: ALBUMIN 1.3 g/dl (3.4-5.0); ANION GAP 8 (8-16); BILIRUBIN,TOTAL 0.2 mg/dL (0.2-1.0); CALCIUM 8.3 mg/dL (8.5-10.1); CO2 27 mmol/L (21-32); CREATININE 0.3 mg/dL (0.55-1.02); GLUCOSE,RANDOM 104 mg/dL (74-106); SGOT/AST 16 U/L (15-37); SGPT/ALT 21 U/L (12-78); TOT PROT 4.4 g/dl (6.4-8.2)
[2016-10-14 06:26] LABS: ALK PHOS 205 U/L (45-117); THYROID STIMULATING HORMONE 4.31 uIU/ml (0.358-3.74)
--- NOTE | 2016-10-14 06:40 | PN ---
Progress Note (short form) - Note Progress Note: PULM/CCM 24: -amanda to 40s overnight while sleeping, borderline bp -improves once awake SUBJECTIVE: Patient seen and examined in the ICU. Awake and alert. Currently off pressors. Refused OR earlier when anesthesia came to evaluate her. Vital Signs Temp 97.8 F 10/14/16 02:09 Pulse 49 L 10/14/16 05:00 Resp 22 10/14/16 05:00 BP 95/46 10/14/16 05:00 Pulse Ox 98 10/13/16 11:29 Intake & Output 10/13/16 10/13/16 10/14/16 11:59 23:59 11:59 Intake Total 200 925 905 Balance 200 925 905 Weight 51.4 kg Intake: IV 525 755 Normal Saline - 1,000 ml 525 750 @ 75 mls/hr IV ASDIR [facility] Rx#:[id number] Dopamine 400 mg/D5w - 250 5 ml @ 5 MCG/KG/MIN 9.638 mls/hr IVPB TITR [facility]ONI Rx#: [id number] IVPB 50 50 50 Oral 150 350 100 Other: Voiding Method Diaper Incontinent Incontinent # Unmeasured Voids Void 2 2 2 Bowel Movement Yes # Bowel Movements 1 Height 4 ft 11 in Body Mass Index (BMI) 22.8 Weight Measurement Method [facility] Active Medications Acetaminophen (Tylenol -) 650 mg PO Q6H PRN PRN Reason: FEVER OR PAIN Last Admin: 10/14/16 00:07 Dose: 650 mg Albuterol/Ipratropium (Duoneb -) 1 amp NEB Q6H PRN PRN Reason: SHORTNESS OF BREATH Last Admin: 10/13/16 21:36 Dose: 1 amp Amino Acids (Prosource No Carb Liquid Pkt) 30 ml PO BID@0800,1730 [facility] Last Admin: 10/13/16 10:32 Dose: 30 ml Baclofen (Lioresal -) 10 mg PO BID [facility] Last Admin: 10/14/16 00:33 Dose: 5 mg Chlorhexidine Gluconate (Hibiclens For Decolonization -) 1 applic TP HS [facility] Last Admin: 10/13/16 21:08 Dose: Not Given Citalopram Hydrobromide (Celexa -) 10 mg PO DAILY [facility] Last Admin: 10/13/16 10:36 Dose: Not Given Diazepam (Valium -) 5 mg PO HS [facility] Last Admin: 10/13/16 19:36 Dose: 5 mg Vasopressin 50 units/ Sodium (Chloride) 100 mls @ 24 mls/hr IVPB TITR [facility]ONI; 0.2 UNITS/MIN PRN Reason: Protocol Last Admin: 10/13/16 19:24 Dose: Not Given Piperacillin Sod/Tazobactam Sod (Zosyn 3.375gm Ivpb (Pre-Docked)) 50 mls @ 100 mls/hr IVPB Q8H-IV [facility]ONI PRN Reason: Protocol Last Admin: 10/14/16 02:04 Dose: 100 mls/hr Sodium Chloride (Normal Saline -) 1,000 mls @ 75 mls/hr IV ASDIR [facility] Last Admin: 10/13/16 19:00 Dose: 75 mls/hr Dopamine HCl/Dextrose (Dopamine 400 Mg/D5w -) 250 mls @ 9.638 mls/hr IVPB TITR [facility]ONI; 5 MCG/KG/MIN PRN Reason: Protocol Last Admin: 10/14/16 00:31 Dose: Not Given Multivitamins/Minerals/Vitamin C (Tab-A-Vit -) 1 tab PO DAILY [facility] Last Admin: 10/13/16 10:32 Dose: 1 tab Mupirocin (Bactroban Ointment (For Decolonization) -) 1 applic NS BID [facility] Stop: 10/17/16 21:59 Last Admin: 10/13/16 21:27 Dose: Not Given Mupirocin (Bactroban 2% Ointment -) 1 applic TP BID [facility] Last Admin: 10/13/16 21:08 Dose: 1 applic Nystatin (Mycostatin Cream -) 1 applic TP BID [facility] Last Admin: 10/13/16 21:09 Dose: 1 applic Sodium Chloride (Normal Saline -) 1,000 ml IV Q20M PRN PRN Reason: MAP<65mm Hg OR SBP <90 Last Admin: 10/13/16 04:23 Dose: 1,000 ml Vancomycin HCl (Vancomycin (Pre-Docked)) 1,000 mg IVPB DAILY [facility] PRN Reason: Protocol Last Admin: 10/13/16 10:33 Dose: 1,000 mg Zinc Sulfate (Orazinc -) 220 mg PO DAILY [facility] Last Admin: 10/13/16 10:32 Dose: 220 mg Constitutional: awake, alert, agitated, NAD Eyes: Yes: WNL HENT: Yes: WNL Neck: Yes: WNL Cardiovascular: Yes: Irregular Respiratory: Yes: On Nasal O2 Gastrointestinal: Yes: WNL Renal/: Yes: Other Breast(s): Yes: Other Musculoskeletal: Yes: Back Pain, Muscle Weakness, chronic Extremities: Yes: contracted LE bilateraly, trace LE dependent edema, some reddening c/f stage I on bilateral heels Edema: trace LE Peripheral Pulses WNL: Yes Integumentary: Yes: Pressure Ulcer sacrum, STAGE IV with escar Wound/Incision: Yes: STAGE 4 SACRAL NECROTIC ULCER Neurological: Yes: Pre-Existing Deficit, Weakness ...Motor Strength: LLE, RLE is 2/5 with contracture Psychiatric: agitated CBC, BMP 10/14/16 05:10 IMP: Septic Shock due to an infected sacral decubitus ulcer Hypotension Infected and tunneled wound booked Wheelchair bound PLAN: For debridement per surgery 10am on Sunday with Dr Garcia, NPO midnight Sunday IVF ABX per ID Pressors as needed for MAP < 65 Ryne Mijares ACNP [id number]
--- NOTE | 2016-10-14 08:39 | PN ---
Progress Note (short form) - Note Progress Note: off pressors hungry wants to eat OR debridement postponed he had bedside debridement Vital Signs Period Temp Pulse Resp BP Sys/Pressley Pulse Ox Last 24 Hr 97 F-98 F 40-88 15-25 75-117/41-63 98-98 cor-rrr lungs clear abd soft,nt ext contracted CBC, BMP 10/14/16 05:10 10/14/16 05:10 Microbiology 10/12/16 14:10 Decubiti Gram Stain - Final 10/12/16 12:23 Blood - Peripheral Venous Blood Culture - Preliminary NO GROWTH OBTAINED AFTER 24 HOURS, INCUBATION TO CONTINUE FOR 4 DAYS. 10/12/16 12:30 Blood - Peripheral Venous Blood Culture - Preliminary NO GROWTH OBTAINED AFTER 24 HOURS, INCUBATION TO CONTINUE FOR 4 DAYS. a/p sepsis secondary to infected decubitus ulcers continue vancomycin and zosyn OR debridement scheduled for Sunday f/u cultures metastatic breast cancer Problem List - Problems (1) Sepsis Code(s): A41.9 - SEPSIS, UNSPECIFIED ORGANISM (2) Infected decubitus ulcer Code(s): L89.90 - PRESSURE ULCER OF UNSPECIFIED SITE, UNSPECIFIED STAGE L08.9 - LOCAL INFECTION OF THE SKIN AND SUBCUTANEOUS TISSUE, UNSP (3) Metastatic breast cancer Code(s): C50.919 - MALIGNANT NEOPLASM OF UNSP SITE OF UNSPECIFIED FEMALE BREAST
[2016-10-14] MEDS ORDERED: PT OWN MED DRAWER 7, Y5N ONE ×2 (08:42→21:18)
[2016-10-14] MEDS: AMINO ACIDS/PROTEIN HYDROLYS 30 ML LIQUID.PKT PO SCH ×2 (08:46→17:41)
[2016-10-14] MEDS: VANCOMYCIN 1 GRAM (PRE-DOCKED) 1,000 MG/250 ML BAG IVPB SCH (09:09)
[2016-10-14] MEDS: CITALOPRAM HYDROBROMIDE 10 MG TABLET (FP) PO SCH ×2 (09:09→10:00)
[2016-10-14] MEDS: MUPIROCIN 2% TOPICAL OINTMENT FOR DECOLONIZATION NS SCH ×2 (09:10→21:26)
[2016-10-14] MEDS: MULTIVITAMINS (DAILY MVI) TABLET (FP) PO SCH (09:11)
[2016-10-14] MEDS: ZINC SULFATE 220 MG CAPSULE (FP) PO SCH (09:11)
[2016-10-14] MEDS: NYSTATIN 100,000 UNIT/GM TOPICAL CREAM 15 GM TUBE TP SCH ×2 (10:00→21:48)
[2016-10-14] MEDS ORDERED: ALPRAZolam 0.25 MG TABLET PO PRN (10:29)
--- NOTE | 2016-10-14 10:53 | PN ---
Progress Note, Physician History of Present Illness: Renal f/u Pt in no distress NS infusing at 75 cc/hr Today's Serum Na wnl She denies any N/V or diarrhea Requesting more salt in her diet - Current Medication List Current Medications: Active Medications Acetaminophen (Tylenol -) 650 mg PO Q6H PRN PRN Reason: FEVER OR PAIN Last Admin: 10/14/16 08:45 Dose: 650 mg Albuterol/Ipratropium (Duoneb -) 1 amp NEB Q6H PRN PRN Reason: SHORTNESS OF BREATH Last Admin: 10/13/16 21:36 Dose: 1 amp Alprazolam (Xanax -) 0.25 mg PO Q6H PRN PRN Reason: ANXIETY Last Admin: 10/14/16 10:37 Dose: 0.25 mg Amino Acids (Prosource No Carb Liquid Pkt) 30 ml PO BID@0800,1730 [facility] Last Admin: 10/14/16 08:46 Dose: 30 ml Baclofen (Lioresal -) 10 mg PO BID [facility] Last Admin: 10/14/16 00:33 Dose: 5 mg Chlorhexidine Gluconate (Hibiclens For Decolonization -) 1 applic TP HS [facility] Last Admin: 10/13/16 21:08 Dose: Not Given Citalopram Hydrobromide (Celexa -) 10 mg PO DAILY [facility] Last Admin: 10/14/16 09:09 Dose: 10 mg Diazepam (Valium -) 5 mg PO HS [facility] Last Admin: 10/13/16 19:36 Dose: 5 mg Vasopressin 50 units/ Sodium (Chloride) 100 mls @ 24 mls/hr IVPB TITR SONI; 0.2 UNITS/MIN PRN Reason: Protocol Last Admin: 10/13/16 19:24 Dose: Not Given Piperacillin Sod/Tazobactam Sod (Zosyn 3.375gm Ivpb (Pre-Docked)) 50 mls @ 100 mls/hr IVPB Q8H-IV SONI PRN Reason: Protocol Last Admin: 10/14/16 09:09 Dose: 100 mls/hr Dopamine HCl/Dextrose (Dopamine 400 Mg/D5w -) 250 mls @ 9.638 mls/hr IVPB TITR [facility]ONI; 5 MCG/KG/MIN PRN Reason: Protocol Last Admin: 10/14/16 00:31 Dose: Not Given Multivitamins/Minerals/Vitamin C (Tab-A-Vit -) 1 tab PO DAILY [facility] Last Admin: 10/14/16 09:11 Dose: 1 tab Mupirocin (Bactroban Ointment (For Decolonization) -) 1 applic NS BID [facility] Stop: 10/17/16 21:59 Last Admin: 10/14/16 09:10 Dose: 1 applic Mupirocin (Bactroban 2% Ointment -) 1 applic TP BID [facility] Last Admin: 10/13/16 21:08 Dose: 1 applic Nystatin (Mycostatin Cream -) 1 applic TP BID [facility] Last Admin: 10/13/16 21:09 Dose: 1 applic Sodium Chloride (Normal Saline -) 1,000 ml IV Q20M PRN PRN Reason: MAP<65mm Hg OR SBP <90 Last Admin: 10/13/16 04:23 Dose: 1,000 ml Vancomycin HCl (Vancomycin (Pre-Docked)) 1,000 mg IVPB DAILY [facility] PRN Reason: Protocol Last Admin: 10/14/16 09:09 Dose: 1,000 mg Zinc Sulfate (Orazinc -) 220 mg PO DAILY [facility] Last Admin: 10/14/16 09:11 Dose: 220 mg - Objective Vital Signs: Vital Signs Temperature 97.8 F 10/14/16 02:09 Pulse Rate 50 L 10/14/16 08:00 Respiratory Rate 18 10/14/16 08:00 Blood Pressure 91/45 10/14/16 08:00 O2 Sat by Pulse Oximetry (%) 98 10/14/16 09:00 Constitutional: Yes: No Distress Cardiovascular: Yes: Pulse Irregular, S1, S2 Respiratory: Yes: CTA Bilaterally Gastrointestinal: Yes: Soft. No: Tenderness, Rebound Edema: LLE: Trace, RLE: Trace Labs: CBC, BMP 10/14/16 05:10 10/14/16 05:10 INR, PTT INR 1.37 (0.82-1.09) H 10/12/16 11:59 Laboratory Tests 10/14/16 05:10 TSH 4.31 H Assessment/Plan IMPRESSION Hyponatremia resolved with saline so likely from Na depletion Decubiti for debridement next week Leukocytosis hearing impaired PLAN Taper off NS if BP allows May have salt in diet but fluid restrict Abx as per ID Debridement Discussed with the Portable Trackman Dr Rowell
[2016-10-14] MEDS: MUPIROCIN 2% TOPICAL OINTMENT 22 GM TUBE TP SCH ×2 (11:21→21:31)
--- NOTE | 2016-10-14 11:47 | PN ---
Progress Note, Physician Chief Complaint: sepsis History of Present Illness: comfortable in bed, asking for lunch, NAD, no pain at this time. - Current Medication List Current Medications: Active Medications Acetaminophen (Tylenol -) 650 mg PO Q6H PRN PRN Reason: FEVER OR PAIN Last Admin: 10/14/16 08:45 Dose: 650 mg Albuterol/Ipratropium (Duoneb -) 1 amp NEB Q6H PRN PRN Reason: SHORTNESS OF BREATH Last Admin: 10/13/16 21:36 Dose: 1 amp Alprazolam (Xanax -) 0.25 mg PO Q6H PRN PRN Reason: ANXIETY Last Admin: 10/14/16 10:37 Dose: 0.25 mg Amino Acids (Prosource No Carb Liquid Pkt) 30 ml PO BID@0800,1730 [facility] Last Admin: 10/14/16 08:46 Dose: 30 ml Baclofen (Lioresal -) 10 mg PO BID [facility] Last Admin: 10/14/16 00:33 Dose: 5 mg Chlorhexidine Gluconate (Hibiclens For Decolonization -) 1 applic TP HS [facility] Last Admin: 10/13/16 21:08 Dose: Not Given Citalopram Hydrobromide (Celexa -) 10 mg PO DAILY [facility] Last Admin: 10/14/16 09:09 Dose: 10 mg Diazepam (Valium -) 5 mg PO HS [facility] Last Admin: 10/13/16 19:36 Dose: 5 mg Vasopressin 50 units/ Sodium (Chloride) 100 mls @ 24 mls/hr IVPB TITR SONI; 0.2 UNITS/MIN PRN Reason: Protocol Last Admin: 10/13/16 19:24 Dose: Not Given Piperacillin Sod/Tazobactam Sod (Zosyn 3.375gm Ivpb (Pre-Docked)) 50 mls @ 100 mls/hr IVPB Q8H-IV SONI PRN Reason: Protocol Last Admin: 10/14/16 09:09 Dose: 100 mls/hr Dopamine HCl/Dextrose (Dopamine 400 Mg/D5w -) 250 mls @ 9.638 mls/hr IVPB TITR SONI; 5 MCG/KG/MIN PRN Reason: Protocol Last Admin: 10/14/16 00:31 Dose: Not Given Midodrine (Proamatine -) 2.5 mg PO TID-MID [facility]ONI Multivitamins/Minerals/Vitamin C (Tab-A-Vit -) 1 tab PO DAILY [facility] Last Admin: 10/14/16 09:11 Dose: 1 tab Mupirocin (Bactroban Ointment (For Decolonization) -) 1 applic NS BID [facility] Stop: 10/17/16 21:59 Last Admin: 10/14/16 09:10 Dose: 1 applic Mupirocin (Bactroban 2% Ointment -) 1 applic TP BID [facility] Last Admin: 10/14/16 11:21 Dose: 1 applic Nystatin (Mycostatin Cream -) 1 applic TP BID [facility] Last Admin: 10/13/16 21:09 Dose: 1 applic Sodium Chloride (Normal Saline -) 1,000 ml IV Q20M PRN PRN Reason: MAP<65mm Hg OR SBP <90 Last Admin: 10/13/16 04:23 Dose: 1,000 ml Vancomycin HCl (Vancomycin (Pre-Docked)) 1,000 mg IVPB DAILY [facility] PRN Reason: Protocol Last Admin: 10/14/16 09:09 Dose: 1,000 mg Zinc Sulfate (Orazinc -) 220 mg PO DAILY [facility] Last Admin: 10/14/16 09:11 Dose: 220 mg - Objective Vital Signs: Vital Signs Temperature 98 F 10/14/16 10:00 Pulse Rate 80 10/14/16 10:00 Respiratory Rate 18 10/14/16 10:00 Blood Pressure 75/49 10/14/16 10:00 O2 Sat by Pulse Oximetry (%) 98 10/14/16 09:00 Constitutional: Yes: Well Nourished, No Distress, Calm Cardiovascular: Yes: Regular Rate and Rhythm Respiratory: Yes: Regular Gastrointestinal: Yes: Normal Bowel Sounds Musculoskeletal: Yes: WNL Extremities: Yes: WNL, Deformity (BLLE) Edema: Yes Edema: LLE: Trace, RLE: Trace Peripheral Pulses WNL: Yes Wound/Incision: Yes: Dressing Dry and Intact (BL heel and right ankle, Stage 4 sacral ulcer) Neurological: Yes: Alert, Weakness Psychiatric: Yes: Alert Labs: CBC, BMP 10/14/16 05:10 10/14/16 05:10 INR, PTT INR 1.37 (0.82-1.09) H 10/12/16 11:59 Problem List - Problems (1) Infected decubitus ulcer Assessment/Plan: -going for debridement on sunday -NPO Sunday midnight Code(s): L89.90 - PRESSURE ULCER OF UNSPECIFIED SITE, UNSPECIFIED STAGE L08.9 - LOCAL INFECTION OF THE SKIN AND SUBCUTANEOUS TISSUE, UNS (2) Sepsis Assessment/Plan: -likely secondary to stage 4 decubitus -blood cultures negative -WBC improved -on IV abx -seen by ID Microbiology 10/12/16 14:10 Decubiti Gram Stain - Final 10/12/16 14:10 Decubiti Wound Culture - Preliminary Non Lactose Fermenting Gnb 10/12/16 12:23 Blood - Peripheral Venous Blood Culture - Preliminary NO GROWTH OBTAINED AFTER 24 HOURS, INCUBATION TO CONTINUE FOR 4 DAYS. 10/12/16 12:30 Blood - Peripheral Venous Blood Culture - Preliminary NO GROWTH OBTAINED AFTER 24 HOURS, INCUBATION TO CONTINUE FOR 4 DAYS. Code(s): A41.9 - SEPSIS, UNSPECIFIED ORGANISM (3) Metastatic breast cancer Code(s): C50.919 - MALIGNANT NEOPLASM OF UNSP SITE OF UNSPECIFIED FEMALE BREAST (4) Hyponatremia Assessment/Plan: -normalized -IV N/S Code(s): E87.1 - HYPO-OSMOLALITY AND HYPONATREMIA (5) Sepsis associated hypotension Assessment/Plan: -off vasopressors -started on midodrine TID as per ACNP -monitor for improvement -IV N/S Code(s): A41.9 - SEPSIS, UNSPECIFIED ORGANISM Assessment/Plan -IV abx -monitor labs for leukocytosis -Midodrine for hypotension -IVF -debridement on sunday -NPO sunday midnight -Psych consult called in for evaluation
[2016-10-14 12:37] LABS: FERRITIN 346.358 ng/ml (6.9-282.5)
[2016-10-14] MEDS: MIDODRINE HCL 2.5 MG TABLET PO SCH ×2 (14:00→17:39)
[2016-10-14] MEDS: VASOPRESSIN 50 UNITS in SODIUM CHLORIDE 97.5 ML IVPB SCH (17:36)
[2016-10-14] MEDS ORDERED: SODIUM CHLORIDE 1,000 ML IV SCH (20:15)
[2016-10-14] MEDS: CHLORHEXIDINE GLUCONATE 4% CLEANSER FOR DECOLONIZATION TP SCH (23:45)
[2016-10-15] MEDS: PIPERACILLIN/TAZOB 3.375 GM 50 ML IVPB SCH ×2 (02:38→09:43)
[2016-10-15 06:18] LABS: MCH 29.7 pg (25.7-33.7); MCHC 32.6 g/dl (32.0-36.0); MEAN CELL VOLUME 91.2 fl (80-96); MEAN PLT VOLUME 6.7 fl (7.5-11.1); PLATELET COUNT 444 K/MM3 (134-434); RDW 15.9 % (11.6-15.6); WHITE BLOOD COUNT 12.1 K/mm3 (4.0-10.0)
[2016-10-15 06:36] LABS: SERUM IRON 24 ug/dL (27-139); TOTAL IRON BINDING CAPACITY 119 ug/dL (250-450); UIBC 95 ug/dL (118-369)
[2016-10-15 06:40] LABS: ANION GAP 9 (8-16); CALCIUM 8.3 mg/dL (8.5-10.1); CO2 28 mmol/L (21-32); CREATININE < 0.2 mg/dL (0.55-1.02); GLUCOSE,RANDOM 72 mg/dL (74-106)
--- NOTE | 2016-10-15 08:06 | PN ---
Progress Note (short form) - Note Progress Note: PULM/CCM 24: -better night last night, slept SUBJECTIVE: Patient seen and examined in the ICU. -no complaints, anxious about OR tomorrow but willing to proceeed. Vital Signs Temp 97.6 F 10/15/16 06:00 Pulse 65 10/15/16 06:00 Resp 20 10/15/16 06:00 BP 101/66 10/15/16 06:00 Pulse Ox 96 10/14/16 19:58 Intake & Output 10/14/16 10/14/16 10/15/16 11:59 23:59 11:59 Intake Total 905 1340 1223 Balance 905 1340 1223 Weight 53.155 kg Intake: IV 755 750 973 Normal Saline - 1,000 ml 750 750 @ 75 mls/hr IV ASDIR [facility] Rx#:[id number] Dopamine 400 mg/D5w - 250 5 ml @ 5 MCG/KG/MIN 9.638 mls/hr IVPB TITR [facility]ONI Rx#: [id number] Normal Saline - 1,000 ml 973 @ 75 mls/hr IV ASDIR [facility] Rx#:[id number] IVPB 50 350 50 Oral 100 240 200 Other: Voiding Method Incontinent Incontinent Incontinent # Unmeasured Voids Void 2 3 2 Bowel Movement Yes Yes # Bowel Movements 1 1 Weight Measurement Method [facility] Active Medications Acetaminophen (Tylenol -) 650 mg PO Q6H PRN PRN Reason: FEVER OR PAIN Last Admin: 10/14/16 08:45 Dose: 650 mg Albuterol/Ipratropium (Duoneb -) 1 amp NEB Q6H PRN PRN Reason: SHORTNESS OF BREATH Last Admin: 10/13/16 21:36 Dose: 1 amp Alprazolam (Xanax -) 0.25 mg PO Q6H PRN PRN Reason: ANXIETY Last Admin: 10/14/16 10:37 Dose: 0.25 mg Amino Acids (Prosource No Carb Liquid Pkt) 30 ml PO BID@0800,1730 [facility] Last Admin: 10/14/16 17:41 Dose: 30 ml Baclofen (Lioresal -) 10 mg PO BID [facility] Last Admin: 10/14/16 23:44 Dose: Not Given Chlorhexidine Gluconate (Hibiclens For Decolonization -) 1 applic TP HS [facility] Last Admin: 10/14/16 23:45 Dose: Not Given Citalopram Hydrobromide (Celexa -) 10 mg PO DAILY [facility] Last Admin: 10/14/16 10:00 Dose: Not Given Piperacillin Sod/Tazobactam Sod (Zosyn 3.375gm Ivpb (Pre-Docked)) 50 mls @ 100 mls/hr IVPB Q8H-IV [facility]ONI PRN Reason: Protocol Last Admin: 10/15/16 02:38 Dose: 100 mls/hr Dopamine HCl/Dextrose (Dopamine 400 Mg/D5w -) 250 mls @ 9.638 mls/hr IVPB TITR SONI; 5 MCG/KG/MIN PRN Reason: Protocol Last Admin: 10/14/16 23:45 Dose: Not Given Sodium Chloride (Normal Saline -) 1,000 mls @ 75 mls/hr IV ASDIR [facility] Last Admin: 10/14/16 21:16 Dose: 75 mls/hr Midodrine (Proamatine -) 2.5 mg PO TID-MID [facility] Last Admin: 10/14/16 17:39 Dose: Not Given Multivitamins/Minerals/Vitamin C (Tab-A-Vit -) 1 tab PO DAILY [facility] Last Admin: 10/14/16 09:11 Dose: 1 tab Mupirocin (Bactroban Ointment (For Decolonization) -) 1 applic NS BID [facility] Stop: 10/17/16 21:59 Last Admin: 10/14/16 21:26 Dose: 1 applic Mupirocin (Bactroban 2% Ointment -) 1 applic TP BID [facility] Last Admin: 10/14/16 21:31 Dose: 1 applic Nystatin (Mycostatin Cream -) 1 applic TP BID [facility] Last Admin: 10/14/16 21:48 Dose: 1 applic Sodium Chloride (Normal Saline -) 1,000 ml IV Q20M PRN PRN Reason: MAP<65mm Hg OR SBP <90 Last Admin: 10/13/16 04:23 Dose: 1,000 ml Vancomycin HCl (Vancomycin (Pre-Docked)) 1,000 mg IVPB DAILY [facility] PRN Reason: Protocol Last Admin: 10/14/16 09:09 Dose: 1,000 mg Zinc Sulfate (Orazinc -) 220 mg PO DAILY [facility] Last Admin: 10/14/16 09:11 Dose: 220 mg Constitutional: awake, alert, calm Eyes: Yes: WNL HENT: Yes: WNL Neck: Yes: WNL Cardiovascular: Yes: Irregular Respiratory: Yes: On Nasal O2 Gastrointestinal: Yes: WNL Renal/: Yes: Other Breast(s): Yes: Other Musculoskeletal: Yes: Back Pain, Muscle Weakness, chronic Extremities: Yes: contracted LE bilateraly, trace LE dependent edema, some reddening c/f stage I on bilateral heels Edema: trace LE Peripheral Pulses WNL: Yes Integumentary: Yes: Pressure Ulcer sacrum, STAGE IV with escar Wound/Incision: Yes: STAGE 4 SACRAL NECROTIC ULCER Neurological: Yes: Pre-Existing Deficit, Weakness ...Motor Strength: LLE, RLE is 2/5 with contracture Psychiatric: calm, less perseveration about medical condition CBC, BMP 10/15/16 05:20 10/15/16 05:20 IMP: Septic Shock due to an infected sacral decubitus ulcer Hypotension Infected and tunneled wound booked Wheelchair bound PLAN: For debridement per surgery 10am on Sunday with Dr Garcia, NPO midnight Sunday IVF ABX per ID Pressors as needed for MAP < 65 cont anti-anxiety/xanax if pt willing med surg post op Ryne Mijares ACNP [phone]
[2016-10-15] MEDS ORDERED: PT OWN MED DRAWER 7, Y5N ONE ×2 (09:14→10:23)
--- NOTE | 2016-10-15 09:32 | PN ---
Progress Note, Physician Chief Complaint: sepsis History of Present Illness: comfortable in bed, asking for lunch, NAD, no pain at this time. - Current Medication List Current Medications: Active Medications Acetaminophen (Tylenol -) 650 mg PO Q6H PRN PRN Reason: FEVER OR PAIN Last Admin: 10/14/16 08:45 Dose: 650 mg Albuterol/Ipratropium (Duoneb -) 1 amp NEB Q6H PRN PRN Reason: SHORTNESS OF BREATH Last Admin: 10/13/16 21:36 Dose: 1 amp Alprazolam (Xanax -) 0.25 mg PO Q6H PRN PRN Reason: ANXIETY Last Admin: 10/14/16 10:37 Dose: 0.25 mg Amino Acids (Prosource No Carb Liquid Pkt) 30 ml PO BID@0800,1730 [facility] Last Admin: 10/14/16 17:41 Dose: 30 ml Baclofen (Lioresal -) 10 mg PO BID [facility] Last Admin: 10/14/16 23:44 Dose: Not Given Chlorhexidine Gluconate (Hibiclens For Decolonization -) 1 applic TP HS [facility] Last Admin: 10/14/16 23:45 Dose: Not Given Citalopram Hydrobromide (Celexa -) 10 mg PO DAILY [facility] Last Admin: 10/14/16 10:00 Dose: Not Given Piperacillin Sod/Tazobactam Sod (Zosyn 3.375gm Ivpb (Pre-Docked)) 50 mls @ 100 mls/hr IVPB Q8H-IV SONI PRN Reason: Protocol Last Admin: 10/15/16 02:38 Dose: 100 mls/hr Sodium Chloride (Normal Saline -) 1,000 mls @ 75 mls/hr IV ASDIR [facility] Last Admin: 10/14/16 21:16 Dose: 75 mls/hr Midodrine (Proamatine -) 2.5 mg PO TID-MID [facility] Last Admin: 10/14/16 17:39 Dose: Not Given Multivitamins/Minerals/Vitamin C (Tab-A-Vit -) 1 tab PO DAILY [facility] Last Admin: 10/14/16 09:11 Dose: 1 tab Mupirocin (Bactroban Ointment (For Decolonization) -) 1 applic NS BID [facility] Stop: 10/17/16 21:59 Last Admin: 10/14/16 21:26 Dose: 1 applic Mupirocin (Bactroban 2% Ointment -) 1 applic TP BID [facility] Last Admin: 10/14/16 21:31 Dose: 1 applic Nystatin (Mycostatin Cream -) 1 applic TP BID [facility] Last Admin: 10/14/16 21:48 Dose: 1 applic Sodium Chloride (Normal Saline -) 1,000 ml IV Q20M PRN PRN Reason: MAP<65mm Hg OR SBP <90 Last Admin: 10/13/16 04:23 Dose: 1,000 ml Vancomycin HCl (Vancomycin (Pre-Docked)) 1,000 mg IVPB DAILY [facility] PRN Reason: Protocol Last Admin: 10/14/16 09:09 Dose: 1,000 mg Zinc Sulfate (Orazinc -) 220 mg PO DAILY [facility] Last Admin: 10/14/16 09:11 Dose: 220 mg - Objective Vital Signs: Vital Signs Temperature 97.6 F 10/15/16 06:00 Pulse Rate 88 10/15/16 08:00 Respiratory Rate 18 10/15/16 08:00 Blood Pressure 99/62 10/15/16 08:00 O2 Sat by Pulse Oximetry (%) 96 10/14/16 19:58 Constitutional: Yes: Well Nourished, No Distress, Calm Cardiovascular: Yes: Regular Rate and Rhythm, Murmur (LSB grade II) Respiratory: Yes: Regular Gastrointestinal: Yes: Normal Bowel Sounds Musculoskeletal: Yes: WNL Wound/Incision: Yes: Dressing Dry and Intact Neurological: Yes: Alert Labs: CBC, BMP 10/15/16 05:20 10/15/16 05:20 INR, PTT INR 1.37 (0.82-1.09) H 10/12/16 11:59 Problem List - Problems (1) Infected decubitus ulcer Assessment/Plan: -going for OR debridement in AM -NPO after midnight Code(s): L89.90 - PRESSURE ULCER OF UNSPECIFIED SITE, UNSPECIFIED STAGE L08.9 - LOCAL INFECTION OF THE SKIN AND SUBCUTANEOUS TISSUE, UNSP (2) Sepsis Assessment/Plan: -likely secondary to stage 4 decubitus -blood cultures negative -WBC improved -on IV abx -seen by ID Microbiology 10/12/16 14:10 Decubiti Gram Stain - Final 10/12/16 14:10 Decubiti Wound Culture - Preliminary Non Lactose Fermenting Gnb 10/12/16 12:23 Blood - Peripheral Venous Blood Culture - Preliminary NO GROWTH OBTAINED AFTER 24 HOURS, INCUBATION TO CONTINUE FOR 4 DAYS. 10/12/16 12:30 Blood - Peripheral Venous Blood Culture - Preliminary NO GROWTH OBTAINED AFTER 24 HOURS, INCUBATION TO CONTINUE FOR 4 DAYS. Code(s): A41.9 - SEPSIS, UNSPECIFIED ORGANISM (3) Metastatic breast cancer Code(s): C50.919 - MALIGNANT NEOPLASM OF UNSP SITE OF UNSPECIFIED FEMALE BREAST (4) Hyponatremia Assessment/Plan: -normalized -IV N/S Code(s): E87.1 - HYPO-OSMOLALITY AND HYPONATREMIA (5) Sepsis associated hypotension Assessment/Plan: -off vasopressors -started on midodrine TID as per ACNP -monitor for improvement -IV N/S Code(s): A41.9 - SEPSIS, UNSPECIFIED ORGANISM Assessment/Plan -IV abx -monitor labs for leukocytosis -Midodrine for hypotension -IVF -OR debridement in AM -NPO after midnight -Psych consult called in for evaluation
[2016-10-15] MEDS: MULTIVITAMINS (DAILY MVI) TABLET (FP) PO SCH (09:44)
[2016-10-15] MEDS: ZINC SULFATE 220 MG CAPSULE (FP) PO SCH (09:44)
[2016-10-15] MEDS: BACLOFEN 10 MG TABLET (FP) PO SCH ×3 (09:44→21:37)
[2016-10-15] MEDS: VANCOMYCIN 1 GRAM (PRE-DOCKED) 1,000 MG/250 ML BAG IVPB SCH (09:44)
[2016-10-15] MEDS: CITALOPRAM HYDROBROMIDE 10 MG TABLET (FP) PO SCH (09:44)
[2016-10-15] MEDS: AMINO ACIDS/PROTEIN HYDROLYS 30 ML LIQUID.PKT PO SCH ×2 (09:45→17:08)
[2016-10-15] MEDS: MUPIROCIN 2% TOPICAL OINTMENT FOR DECOLONIZATION NS SCH ×2 (09:46→21:36)
[2016-10-15] MEDS: MIDODRINE HCL 2.5 MG TABLET PO SCH ×3 (09:46→17:07)
--- NOTE | 2016-10-15 10:17 | PN ---
Progress Note, Physician History of Present Illness: Renal f/u Pt in no distress NS was stopped yesterday but resumed after Today's Serum Na up to 140 She denies any N/V or diarrhea UA and utine for Spot Na still to be sent since difficult for pt to give a sample Wound culture result noted BC neg X2 - Current Medication List Current Medications: Active Medications Acetaminophen (Tylenol -) 650 mg PO Q6H PRN PRN Reason: FEVER OR PAIN Last Admin: 10/14/16 08:45 Dose: 650 mg Albuterol/Ipratropium (Duoneb -) 1 amp NEB Q6H PRN PRN Reason: SHORTNESS OF BREATH Last Admin: 10/13/16 21:36 Dose: 1 amp Alprazolam (Xanax -) 0.25 mg PO Q6H PRN PRN Reason: ANXIETY Last Admin: 10/14/16 10:37 Dose: 0.25 mg Amino Acids (Prosource No Carb Liquid Pkt) 30 ml PO BID@0800,1730 [facility] Last Admin: 10/15/16 09:45 Dose: 30 ml Baclofen (Lioresal -) 10 mg PO BID [facility] Last Admin: 10/15/16 09:45 Dose: 5 mg Chlorhexidine Gluconate (Hibiclens For Decolonization -) 1 applic TP HS [facility] Last Admin: 10/14/16 23:45 Dose: Not Given Citalopram Hydrobromide (Celexa -) 10 mg PO DAILY [facility] Last Admin: 10/15/16 09:44 Dose: Not Given Piperacillin Sod/Tazobactam Sod (Zosyn 3.375gm Ivpb (Pre-Docked)) 50 mls @ 100 mls/hr IVPB Q8H-IV [facility]ONI PRN Reason: Protocol Last Admin: 10/15/16 09:43 Dose: 100 mls/hr Midodrine (Proamatine -) 2.5 mg PO TID-MID [facility] Last Admin: 10/15/16 09:46 Dose: Not Given Multivitamins/Minerals/Vitamin C (Tab-A-Vit -) 1 tab PO DAILY [facility] Last Admin: 10/15/16 09:44 Dose: 1 tab Mupirocin (Bactroban Ointment (For Decolonization) -) 1 applic NS BID [facility] Stop: 10/17/16 21:59 Last Admin: 10/15/16 09:46 Dose: 1 applic Mupirocin (Bactroban 2% Ointment -) 1 applic TP BID [facility] Last Admin: 10/14/16 21:31 Dose: 1 applic Nystatin (Mycostatin Cream -) 1 applic TP BID [facility] Last Admin: 10/14/16 21:48 Dose: 1 applic Sodium Chloride (Normal Saline -) 1,000 ml IV Q20M PRN PRN Reason: MAP<65mm Hg OR SBP <90 Last Admin: 10/13/16 04:23 Dose: 1,000 ml Vancomycin HCl (Vancomycin (Pre-Docked)) 1,000 mg IVPB DAILY [facility] PRN Reason: Protocol Last Admin: 10/15/16 09:44 Dose: 1,000 mg Zinc Sulfate (Orazinc -) 220 mg PO DAILY [facility] Last Admin: 10/15/16 09:44 Dose: 220 mg - Objective Vital Signs: Vital Signs Temperature 97.6 F 10/15/16 06:00 Pulse Rate 88 10/15/16 08:00 Respiratory Rate 18 10/15/16 08:00 Blood Pressure 99/62 10/15/16 08:00 O2 Sat by Pulse Oximetry (%) 96 10/14/16 19:58 Constitutional: Yes: No Distress Cardiovascular: Yes: S1, S2, Other (Slightly mirregular) Respiratory: Yes: CTA Bilaterally Gastrointestinal: Yes: Soft. No: Tenderness, Rebound Edema: LLE: Trace, RLE: Trace Labs: CBC, BMP 10/15/16 05:20 10/15/16 05:20 INR, PTT INR 1.37 (0.82-1.09) H 10/12/16 11:59 Microbiology 10/12/16 14:10 Decubiti Gram Stain - Final 10/12/16 14:10 Decubiti Wound Culture - Preliminary Providencia Stuartii Anaerobic Gram Neg Bacilli Assessment/Plan IMPRESSION Hyponatremia resolved with saline so likely from Na depletion Decubiti for debridement Leukocytosis Anemia hearing impaired PLAN Monitor off NS but will need IVF when she is NPO for the debridement Salt in diet but fluid restrict Abx as per ID Debridement For UA when pt able to give a sample. Urine for spot Na was also ordered before but would not be useful at this time so will D/C Discussed with the Wood Type [employer] Dr Rowell
[2016-10-15] MEDS: NYSTATIN 100,000 UNIT/GM TOPICAL CREAM 15 GM TUBE TP SCH ×2 (10:19→21:39)
[2016-10-15] MEDS: MUPIROCIN 2% TOPICAL OINTMENT 22 GM TUBE TP SCH ×2 (10:21→21:37)
--- NOTE | 2016-10-15 11:19 | PN ---
Progress Note (short form) - Note Progress Note: no complaints family is visiting Vital Signs Period Temp Pulse Resp BP Sys/Pressley Pulse Ox Last 24 Hr 97.5 F-98 F 52-100 16-24 89-121/49-89 96 cor-rrr lungs decreased bs at bases abd soft,nt ext contracted CBC, BMP 10/15/16 05:20 10/15/16 05:20 Microbiology 10/13/16 14:30 Decubiti Gram Stain - Final 10/13/16 14:30 Decubiti Wound Culture - Preliminary Non Lactose Fermenting Gnb Group D Strep Or Entero Coccus 10/12/16 14:10 Decubiti Gram Stain - Final 10/12/16 14:10 Decubiti Wound Culture - Preliminary Providencia Stuartii Anaerobic Gram Neg Bacilli 10/12/16 12:23 Blood - Peripheral Venous Blood Culture - Preliminary NO GROWTH OBTAINED AFTER 48 HOURS, INCUBATION TO CONTINUE FOR 3 DAYS. 10/12/16 12:30 Blood - Peripheral Venous Blood Culture - Preliminary NO GROWTH OBTAINED AFTER 48 HOURS, INCUBATION TO CONTINUE FOR 3 DAYS. a/p sepsis secondary to infected decubitus ulcers on vancomycin and zosyn switch to vanco/ertapenem based on culture results OR debridement scheduled for Sunday f/u cultures metastatic breast cancer Problem List - Problems (1) Sepsis Code(s): A41.9 - SEPSIS, UNSPECIFIED ORGANISM (2) Infected decubitus ulcer Code(s): L89.90 - PRESSURE ULCER OF UNSPECIFIED SITE, UNSPECIFIED STAGE L08.9 - LOCAL INFECTION OF THE SKIN AND SUBCUTANEOUS TISSUE, UNSP (3) Metastatic breast cancer Code(s): C50.919 - MALIGNANT NEOPLASM OF UNSP SITE OF UNSPECIFIED FEMALE BREAST
[2016-10-15] MEDS: ERTAPENEM SODIUM 1 GM in SODIUM CHLORIDE 50 ML IVPB SCH (14:53)
[2016-10-15] MEDS: ACETAMINOPHEN 325 MG TABLET (FP) PO PRN (19:47)
--- NOTE | 2016-10-15 20:26 | CONS ---
INFECTIOUS DISEASE CONSULTATION DATE OF CONSULTATION: 10/13/2016 HISTORY OF PRESENT ILLNESS: This is a 66-year-old woman who was recently in the hospital in August with pneumonia and COPD. She has a history of metastatic breast cancer with cord compression and is paraplegic and bedbound. She was discharged on the on Ceftin. She is now readmitted on the 12 of October for debridement of an infected sacral ulcer. She was seen in the emergency room where she was noted to have some tachycardia and a fever of 99.8. She developed hypotension and lactic acidosis. She was admitted to the ICU for hypotension. She was fluid resuscitated and started on low-dose pressors. I am asked to see her for sepsis. She was given vancomycin and Zosyn in the emergency room. The patient is currently awake and alert. She is quite anxious about her planned surgical debridement. She denies any cough. She denies any nausea, vomiting, or fevers or chills. PAST MEDICAL HISTORY: Notable for metastatic breast cancer. She has bone metastases, cord compression, and is paraplegic. She has a history of peripheral neuropathy, atrial fibrillation, COPD. She has as well a bipolar disorder as well as anxiety. She has a history of cholecystectomy and tonsillectomy in the past. On her prior admission, she had a biopsy of a chest wall mass that was notable for recurrent malignancy. ALLERGIES: She is allergic to EPINEPHRINE and BACTRIM and PROCAINE. MEDICATIONS: At the [facility] include zinc sulfate, senna, MiraLAX, Imodium p.r.n., Lovenox, Valium, Colace, Santyl, calcium, vitamin C, and Augmentin. FAMILY HISTORY: Noncontributory. SOCIAL HISTORY: She is currently residing at [facility] where she is very happy with her care. She is a former smoker. There is no history of any substance use. REVIEW OF SYSTEMS: As per HPI. PHYSICAL EXAMINATION: General: She is awake and alert. Vital Signs: Temperature is 98.4; T-max was 100.5. Her current blood pressure is 118/73, pulse of 62, respiratory rate is 20. She weighs 113 pounds. HEENT: She is normocephalic. Her eyes are anicteric. Lungs: Diminished breath sounds at the bases. Heart: Regular rate and rhythm. Abdomen: Soft. Extremities: Her legs are contracted. Skin: She has stage 2 heel ulcers bilaterally. She has a necrotic, foul-smelling, stage 4 sacral ulcer. She has 2 smaller ischial ulcers as well. LABORATORY DATA: Labs are notable for a white count on admission of 14.7; this morning 12.4. Hemoglobin 9, platelets of 412. INR is 1.3. BUN is 8 and creatinine 0.2. LFTs are notable for alkaline phosphatase of 222. Albumin is 1.3. Cultures are pending at this time. Chest x-ray shows no consolidation, with a question of a small left pleural effusion. In summary, this is a 66-year-old woman admitted with: 1. Sepsis secondary to infected decubitus ulcer. Would continue vancomycin and Zosyn. She is scheduled for debridement. Follow up cultures. Fluids and pressors as needed. 2. Metastatic breast cancer with cord compression and paraplegia. Further recommendations to follow based on her clinical course. Chloe [id number]
[2016-10-15] MEDS: CHLORHEXIDINE GLUCONATE 4% CLEANSER FOR DECOLONIZATION TP SCH (21:37)
[2016-10-16 06:29] LABS: BASOPHIL 0.3 % (0-2.0); EOSINOPHIL 2.4 % (0-4.5); MCHC 33.1 g/dl (32.0-36.0); MEAN CELL VOLUME 90.7 fl (80-96); MEAN PLT VOLUME 6.4 fl (7.5-11.1); PLATELET COUNT 456 K/MM3 (134-434); WHITE BLOOD COUNT 11.8 K/mm3 (4.0-10.0)
[2016-10-16 06:52] LABS: ANION GAP 6 (8-16); CALCIUM 8.9 mg/dL (8.5-10.1); CO2 35 mmol/L (21-32); CREATININE 0.2 mg/dL (0.55-1.02); GLUCOSE,RANDOM 78 mg/dL (74-106)
--- NOTE | 2016-10-16 07:45 | PN ---
Progress Note (short form) - Note Progress Note: RENAL Denies complaints says she is going to surgery Last Vital Signs Temp Pulse Resp BP Pulse Ox 98.2 F 62 23 96/66 99 10/16/16 06:00 10/16/16 06:00 10/16/16 06:00 10/16/16 06:00 10/15/16 20:53 lungs clear anteriorly cvs s1s2 irreg, michelle abd soft ext no edema neuro a+ox3 CBC, BMP 10/16/16 05:15 10/16/16 05:15 Current Medications Generic Name Dose Route Start Last Admin Trade Name Freq PRN Reason Stop Dose Admin Acetaminophen 650 mg 10/12/16 19:23 10/15/16 19:47 Tylenol - PO 650 mg Q6H PRN Administration FEVER OR PAIN Albuterol/Ipratropium 1 amp 10/12/16 19:23 10/13/16 21:36 Duoneb - NEB 1 amp Q6H PRN Administration SHORTNESS OF BREATH Alprazolam 0.25 mg 10/14/16 10:29 10/14/16 10:37 Xanax - PO 0.25 mg Q6H PRN Administration ANXIETY Amino Acids 30 ml 10/13/16 08:00 10/15/16 17:08 Prosource No Carb Liquid Pkt PO 30 ml BID@0800,1730 SONI Administration Baclofen 10 mg 10/12/16 22:00 10/15/16 21:37 Lioresal - PO 10 mg BID SONI Administration Chlorhexidine Gluconate 1 applic 10/12/16 22:00 10/15/16 21:37 Hibiclens For Decolonization - TP 1 applic HS [facility]ONI Administration Citalopram Hydrobromide 10 mg 10/13/16 10:00 10/15/16 09:44 Celexa - PO Not Given DAILY [facility]ONI Ertapenem 1 gm/ Sodium 50 mls @ 50 mls/hr 10/15/16 12:00 10/15/16 14:53 Chloride IVPB 50 mls/hr DAILY [facility] Administration Protocol Midodrine 2.5 mg 10/14/16 14:00 10/15/16 17:07 Proamatine - PO Not Given TID-MID [facility] Multivitamins/Minerals/Vitamin C 1 tab 10/13/16 10:00 10/15/16 09:44 Tab-A-Vit - PO 1 tab DAILY [facility] Administration Mupirocin 1 applic 10/12/16 22:00 10/15/16 21:36 Bactroban Ointment (For Decolonization) - NS 10/17/16 21:59 1 applic BID [facility]ONI Administration Mupirocin 1 applic 10/12/16 22:00 10/15/16 21:37 Bactroban 2% Ointment - TP 1 applic BID [facility]ONI Administration Nystatin 1 applic 10/12/16 22:00 10/15/16 21:39 Mycostatin Cream - TP Not Given BID [facility] Sodium Chloride 1,000 ml 10/12/16 12:23 10/13/16 04:23 Normal Saline - IV 1,000 ml Q20M PRN Administration MAP<65mm Hg OR SBP <90 Vancomycin HCl 1,000 mg 10/13/16 10:00 10/15/16 09:44 Vancomycin (Pre-Docked) IVPB 1,000 mg DAILY [facility] Administration Protocol Zinc Sulfate 220 mg 10/13/16 10:00 10/15/16 09:44 Orazinc - PO 220 mg DAILY [facility]ONI Administration IMPRESSION HYponatremia resolved does have hypokalemia cortisol is normal tsh slightly high PLAN replace electrolytes saline during npo status would repeat tsh and t4 as outpatient will follow PRN Please call beack if necessary HOLGER
[2016-10-16] MEDS: AMINO ACIDS/PROTEIN HYDROLYS 30 ML LIQUID.PKT PO SCH ×2 (09:02→18:15)
[2016-10-16] MEDS ORDERED: PROPOFOL 20 ML ONE ×3 (09:09)
[2016-10-16] MEDS ORDERED: ePHEDrine SULFATE 50 MG/1 ML AMPULE ONE (09:09)
[2016-10-16] MEDS ORDERED: SUCCINYLCHOLINE CHLORIDE 200 MG/10 ML VIAL ONE ×4 (09:10)
[2016-10-16] MEDS ORDERED: LIDOCAINE HCL 1%, 10 MG/ML (20ML VIAL) IJ ONE (09:51)
--- NOTE | 2016-10-16 10:08 | OP ---
Operative Note - Note: Operative Date: 10/16/16 Pre-Operative Diagnosis: stage 4 necrotic sacral ulcer Operation: Excisional debridment skin, subcutaneous tissue, muscle sacrum Post-Operative Diagnosis: Same as Pre-op Surgeon: Luis Garcia Anesthesia: Local, Fractional Estimated Blood Loss (mls): 20 Operative Report Dictated: Yes
[2016-10-16] MEDS: ERTAPENEM SODIUM 1 GM in SODIUM CHLORIDE 50 ML IVPB SCH (11:00)
[2016-10-16] MEDS: VANCOMYCIN 1 GRAM (PRE-DOCKED) 1,000 MG/250 ML BAG IVPB SCH (11:02)
[2016-10-16] MEDS ORDERED: PT OWN MED DRAWER 7, Y5N ONE (11:04)
[2016-10-16] MEDS: MULTIVITAMINS (DAILY MVI) TABLET (FP) PO SCH (11:06)
[2016-10-16] MEDS: ZINC SULFATE 220 MG CAPSULE (FP) PO SCH (11:06)
[2016-10-16] MEDS: BACLOFEN 10 MG TABLET (FP) PO SCH ×2 (11:09→21:58)
[2016-10-16] MEDS: MIDODRINE HCL 2.5 MG TABLET PO SCH ×2 (11:20→16:16)
[2016-10-16] MEDS: MUPIROCIN 2% TOPICAL OINTMENT 22 GM TUBE TP SCH (11:21)
[2016-10-16] MEDS: CITALOPRAM HYDROBROMIDE 10 MG TABLET (FP) PO SCH (11:21)
--- NOTE | 2016-10-16 11:35 | PN ---
Progress Note (short form) - Note Progress Note: ID vancomycin and ertepenem Afebrile NAD Selected Entries 10/16/16 10/16/16 09:30 10:47 Temperature 98.0 F Pulse Rate 85 Respiratory 17 Rate Blood Pressure 110/55 Necrotic stage 4 decub debrided Laboratory Tests 10/16/16 10/16/16 05:15 05:15 WBC 11.8 H Hgb 10.0 L D Hct 30.1 L Plt Count 456 H BUN 5 L D Creatinine 0.2 L Microbiology 10/13/16 14:30 Decubiti Gram Stain - Final 10/13/16 14:30 Decubiti Wound Culture - Preliminary Morganella Morganii Group D Strep Or Entero Coccus Assessment At this point would treat for another 48 hours of Ertepenem and stop the Vancomycin Ayesha CAEMRON
[2016-10-16] MEDS ORDERED: POTASSIUM CHLORIDE TABS 20 MEQ TABLET.ER (FP) PO ONE (12:00)
--- NOTE | 2016-10-16 12:54 | PN ---
Teaching Attending Note Name of Resident: Boo Allen ATTENDING PHYSICIAN STATEMENT I saw and evaluated the patient. I reviewed the resident's note and discussed the case with the resident. I agree with the resident's findings and plan as documented. SUBJECTIVE: Patient seen and examined in the ICU. Awake and alert. Remains off pressors. Just returned from the OR S/P extensive debridement of an infected sacral ulcer Intake & Output 10/13/16 10/14/16 10/15/16 10/16/16 23:59 23:59 23:59 23:59 Intake Total 1125 2245 1992 50 Output Total 5 Balance 1125 2245 1992 45 Weight 113 lb 5.082 oz 117 lb 3 oz 112 lb 9.6 oz Last Vital Signs Temp Pulse Resp BP Pulse Ox 98.0 F 85 17 110/55 96 10/16/16 09:30 10/16/16 10:47 10/16/16 09:30 10/16/16 09:30 10/16/16 10:47 Active Medications Acetaminophen (Tylenol -) 650 mg PO Q6H PRN PRN Reason: FEVER OR PAIN Last Admin: 10/15/16 19:47 Dose: 650 mg Albuterol/Ipratropium (Duoneb -) 1 amp NEB Q6H PRN PRN Reason: SHORTNESS OF BREATH Last Admin: 10/13/16 21:36 Dose: 1 amp Alprazolam (Xanax -) 0.25 mg PO Q6H PRN PRN Reason: ANXIETY Last Admin: 10/14/16 10:37 Dose: 0.25 mg Amino Acids (Prosource No Carb Liquid Pkt) 30 ml PO BID@0800,1730 [facility] Last Admin: 10/16/16 09:02 Dose: Not Given Baclofen (Lioresal -) 10 mg PO BID [facility] Last Admin: 10/16/16 11:09 Dose: 10 mg Chlorhexidine Gluconate (Hibiclens For Decolonization -) 1 applic TP HS [facility] Citalopram Hydrobromide (Celexa -) 10 mg PO DAILY [facility] Last Admin: 10/16/16 11:21 Dose: Not Given Ertapenem 1 gm/ Sodium (Chloride) 50 mls @ 50 mls/hr IVPB DAILY [facility] PRN Reason: Protocol Last Admin: 10/16/16 11:00 Dose: 50 mls/hr Midodrine (Proamatine -) 2.5 mg PO TID-MID [facility] Last Admin: 10/16/16 11:20 Dose: 2.5 mg Multivitamins/Minerals/Vitamin C (Tab-A-Vit -) 1 tab PO DAILY [facility] Last Admin: 10/16/16 11:06 Dose: 1 tab Mupirocin (Bactroban 2% Ointment -) 1 applic TP BID [facility] Last Admin: 10/16/16 11:21 Dose: Not Given Mupirocin (Bactroban Ointment (For Decolonization) -) 1 applic NS BID [facility] Stop: 10/21/16 21:59 Nystatin (Mycostatin Cream -) 1 applic TP BID [facility] Last Admin: 10/15/16 21:39 Dose: Not Given Sodium Chloride (Normal Saline -) 1,000 ml IV Q20M PRN PRN Reason: MAP<65mm Hg OR SBP <90 Last Admin: 10/13/16 04:23 Dose: 1,000 ml Zinc Sulfate (Orazinc -) 220 mg PO DAILY [facility] Last Admin: 10/16/16 11:06 Dose: 220 mg Constitutional: awake, alert, agitated, NAD Eyes: Yes: WNL HENT: Yes: WNL Neck: Yes: WNL Cardiovascular: Yes: Irregular Respiratory: Yes: On Nasal O2 Gastrointestinal: Yes: WNL Renal/: Yes: Other Breast(s): Yes: Other Musculoskeletal: Yes: Back Pain, Muscle Weakness, chronic Extremities: Yes: contracted LE bilateraly, trace LE dependent edema, some reddening c/f stage I on bilateral heels Edema: trace LE Peripheral Pulses WNL: Yes Integumentary: Yes: Pressure Ulcer sacrum, STAGE IV with escar Wound/Incision: Yes: STAGE 4 SACRAL NECROTIC ULCER Neurological: Yes: Pre-Existing Deficit, Weakness ...Motor Strength: LLE, RLE Psychiatric: agitated Laboratory Results - last 24 hr 10/16/16 10/16/16 05:15 05:15 WBC 11.8 H RBC 3.32 L Hgb 10.0 L D Hct 30.1 L MCV 90.7 MCH 30.0 MCHC 33.1 RDW 16.0 H Plt Count 456 H MPV 6.4 L Neutrophils % 83.0 H Lymphocytes % 9.5 Monocytes % 4.8 Eosinophils % 2.4 Basophils % 0.3 Sodium 141 Potassium 3.2 L Chloride 100 Carbon Dioxide 35 H D Anion Gap 6 L BUN 5 L D Creatinine 0.2 L Random Glucose 78 Calcium 8.9 IMP: Septic Shock due to an infected sacral decubitus ulcer Hypotension Infected and tunneled wound booked Wheelchair bound PLAN: S/P debridement Wound care per surgery IVF ABX per ID Pressors as needed for MAP < 65 VTE prophylaxis Critical Care Total Critical Care Time (in minutes): 35 Critical Care Statement: The care of this patient involved high complexity decision making to prevent further life threatening deterioration of the patient 's condition and/or to evalute & treat vital organ system(s) failure or risk of failure.
--- NOTE | 2016-10-16 14:29 | PN ---
Progress Note, Physician Chief Complaint: SEEN IN ICU DAUGHTER BEDSIDE S/P DEBRIDEMENT OF SACRAL ULCER IN O.R. - Current Medication List Current Medications: Active Medications Acetaminophen (Tylenol -) 650 mg PO Q6H PRN PRN Reason: FEVER OR PAIN Last Admin: 10/15/16 19:47 Dose: 650 mg Albuterol/Ipratropium (Duoneb -) 1 amp NEB Q6H PRN PRN Reason: SHORTNESS OF BREATH Last Admin: 10/13/16 21:36 Dose: 1 amp Alprazolam (Xanax -) 0.25 mg PO Q6H PRN PRN Reason: ANXIETY Last Admin: 10/14/16 10:37 Dose: 0.25 mg Amino Acids (Prosource No Carb Liquid Pkt) 30 ml PO BID@0800,1730 [facility] Last Admin: 10/16/16 09:02 Dose: Not Given Baclofen (Lioresal -) 10 mg PO BID [facility] Last Admin: 10/16/16 11:09 Dose: 10 mg Chlorhexidine Gluconate (Hibiclens For Decolonization -) 1 applic TP HS [facility] Citalopram Hydrobromide (Celexa -) 10 mg PO DAILY [facility] Last Admin: 10/16/16 11:21 Dose: Not Given Ertapenem 1 gm/ Sodium (Chloride) 50 mls @ 50 mls/hr IVPB DAILY [facility] PRN Reason: Protocol Last Admin: 10/16/16 11:00 Dose: 50 mls/hr Midodrine (Proamatine -) 2.5 mg PO TID-MID [facility] Last Admin: 10/16/16 11:20 Dose: 2.5 mg Multivitamins/Minerals/Vitamin C (Tab-A-Vit -) 1 tab PO DAILY [facility] Last Admin: 10/16/16 11:06 Dose: 1 tab Mupirocin (Bactroban 2% Ointment -) 1 applic TP BID [facility] Last Admin: 10/16/16 11:21 Dose: Not Given Mupirocin (Bactroban Ointment (For Decolonization) -) 1 applic NS BID [facility] Stop: 10/21/16 21:59 Nystatin (Mycostatin Cream -) 1 applic TP BID [facility] Last Admin: 10/15/16 21:39 Dose: Not Given Sodium Chloride (Normal Saline -) 1,000 ml IV Q20M PRN PRN Reason: MAP<65mm Hg OR SBP <90 Last Admin: 10/13/16 04:23 Dose: 1,000 ml Zinc Sulfate (Orazinc -) 220 mg PO DAILY [facility] Last Admin: 10/16/16 11:06 Dose: 220 mg - Objective Vital Signs: Vital Signs Temperature 98.5 F 10/16/16 12:00 Pulse Rate 110 H 10/16/16 12:00 Respiratory Rate 16 10/16/16 12:00 Blood Pressure 80/50 10/16/16 12:00 O2 Sat by Pulse Oximetry (%) 96 10/16/16 10:47 Constitutional: Yes: Mild Distress Eyes: Yes: WNL HENT: Yes: WNL Neck: Yes: WNL Cardiovascular: Yes: Pulse Irregular Respiratory: Yes: WNL Gastrointestinal: Yes: WNL Genitourinary: Yes: Incontinence Musculoskeletal: Yes: Back Pain, Muscle Weakness Extremities: Yes: Deformity Edema: No Peripheral Pulses WNL: Yes Integumentary: Yes: Other Wound/Incision: Yes: Other Neurological: Yes: Other ...Motor Strength: LLE, RLE Psychiatric: Yes: Other Labs: CBC, BMP 10/16/16 05:15 10/16/16 05:15 INR, PTT INR 1.37 (0.82-1.09) H 10/12/16 11:59 Problem List - Problems (1) Infected decubitus ulcer Code(s): L89.90 - PRESSURE ULCER OF UNSPECIFIED SITE, UNSPECIFIED STAGE L08.9 - LOCAL INFECTION OF THE SKIN AND SUBCUTANEOUS TISSUE, UNSP (2) Metastatic breast cancer Code(s): C50.919 - MALIGNANT NEOPLASM OF UNSP SITE OF UNSPECIFIED FEMALE BREAST (3) Sepsis Code(s): A41.9 - SEPSIS, UNSPECIFIED ORGANISM (4) Sepsis associated hypotension Code(s): A41.9 - SEPSIS, UNSPECIFIED ORGANISM (5) Atrial fibrillation Code(s): I48.91 - UNSPECIFIED ATRIAL FIBRILLATION Qualifiers: Atrial fibrillation type: paroxysmal Qualified Code(s): I48.0 - Paroxysmal atrial fibrillation (6) COPD (chronic obstructive pulmonary disease) Code(s): J44.9 - CHRONIC OBSTRUCTIVE PULMONARY DISEASE, UNSPECIFIED Assessment/Plan [facility] SUPPORT ID F/U OOB TO CHAIR REPLETE K+
--- NOTE | 2016-10-16 15:14 | PN ---
Physical Exam: SUBJECTIVE: Patient stated she's in bad mood and does not want to go for debridement. No other complaints. OBJECTIVE: Vital Signs Period Temp Pulse Resp BP Sys/Pressley Pulse Ox Last 24 Hr 97.5 F-98.5 F 52-110 12-23 80-113/45-68 96-99 GENERAL: The patient is awake, alert, and fully oriented, in no acute distress. EYES: extraocular movements intact, sclera anicteric, conjunctiva clear. No ptosis. ENT: Ears normal, nares patent LUNGS: Diminished breath sounds HEART: irregular rate and rhythm, S1, S2 ABDOMEN: Soft, nontender, normoactive bowel sounds EXTREMITIES: contracted b/l le SKIN: +stage 4 decubitus ulcer approximately 7x7 inches in overall size Laboratory Results - last 24 hr 10/16/16 10/16/16 05:15 05:15 WBC 11.8 H RBC 3.32 L Hgb 10.0 L D Hct 30.1 L MCV 90.7 MCH 30.0 MCHC 33.1 RDW 16.0 H Plt Count 456 H MPV 6.4 L Neutrophils % 83.0 H Lymphocytes % 9.5 Monocytes % 4.8 Eosinophils % 2.4 Basophils % 0.3 Sodium 141 Potassium 3.2 L Chloride 100 Carbon Dioxide 35 H D Anion Gap 6 L BUN 5 L D Creatinine 0.2 L Random Glucose 78 Calcium 8.9 Active Medications Generic Name Dose Route Start Last Admin Trade Name Freq PRN Reason Stop Dose Admin Acetaminophen 650 mg 10/12/16 19:23 10/15/16 19:47 Tylenol - PO 650 mg Q6H PRN Administration FEVER OR PAIN Albuterol/Ipratropium 1 amp 10/12/16 19:23 10/13/16 21:36 Duoneb - NEB 1 amp Q6H PRN Administration SHORTNESS OF BREATH Alprazolam 0.25 mg 10/14/16 10:29 10/14/16 10:37 Xanax - PO 0.25 mg Q6H PRN Administration ANXIETY Amino Acids 30 ml 10/13/16 08:00 10/16/16 09:02 Prosource No Carb Liquid Pkt PO Not Given BID@0800,1730 [facility] Baclofen 10 mg 10/12/16 22:00 10/16/16 11:09 Lioresal - PO 10 mg BID [facility] Administration Chlorhexidine Gluconate 1 applic 10/16/16 22:00 Hibiclens For Decolonization - TP HS [facility] Citalopram Hydrobromide 10 mg 10/13/16 10:00 10/16/16 11:21 Celexa - PO Not Given DAILY [facility] Ertapenem 1 gm/ Sodium 50 mls @ 50 mls/hr 10/15/16 12:00 10/16/16 11:00 Chloride IVPB 50 mls/hr DAILY [facility] Administration Protocol Midodrine 2.5 mg 10/14/16 14:00 10/16/16 11:20 Proamatine - PO 2.5 mg TID-MID [facility] Administration Multivitamins/Minerals/Vitamin C 1 tab 10/13/16 10:00 10/16/16 11:06 Tab-A-Vit - PO 1 tab DAILY [facility] Administration Mupirocin 1 applic 10/12/16 22:00 10/16/16 11:21 Bactroban 2% Ointment - TP Not Given BID [facility] Mupirocin 1 applic 10/16/16 22:00 Bactroban Ointment (For Decolonization) - NS 10/21/16 21:59 BID [facility] Nystatin 1 applic 10/12/16 22:00 10/15/16 21:39 Mycostatin Cream - TP Not Given BID [facility] Sodium Chloride 1,000 ml 10/12/16 12:23 10/13/16 04:23 Normal Saline - IV 1,000 ml Q20M PRN Administration MAP<65mm Hg OR SBP <90 Zinc Sulfate 220 mg 10/13/16 10:00 10/16/16 11:06 Orazinc - PO 220 mg DAILY [facility] Administration ASSESSMENT/PLAN: 66 y/o F w/PMH of breast CA, severe neuropathy with LE contracture, from [place] admitted to ICU for septic shock secondary to decub ulcer. -Septic shock secondary to decub ulcer -Resolved -s/p debridement in OR -IVF PRN -Cont. abx -f/u cultures -FEN -IVF PRN to maintain MAP >65 -Hypokalemia, gave k-dur -Regular diet -Dispo -Transfer to med-surg Visit type - Emergency Visit Emergency Visit: No - New Patient This patient is new to me today: No - Critical Care Critical Care patient: Yes Total Critical Care Time (in minutes): 30 Critical Care Statement: The care of this patient involved high complexity decision making to prevent further life threatening deterioration of the patient 's condition and/or to evalute & treat vital organ system(s) failure or risk of failure.
[2016-10-16] MEDS ORDERED: SODIUM CHLORIDE 0.9% 1000 ML INFUS.BAG IV PRN (16:10)
[2016-10-16] MEDS ORDERED: ALBUTEROL SO4 2.5/IPRATROPIUM 0.5 INH SOL 3 ML VIAL.NEB. NEB PRN (16:10)
[2016-10-16] MEDS ORDERED: ALPRAZolam 0.25 MG TABLET PO PRN (16:10)
[2016-10-16] MEDS: MUPIROCIN 2% TOPICAL OINTMENT FOR DECOLONIZATION NS SCH (16:17)
[2016-10-16] MEDS: NYSTATIN 100,000 UNIT/GM TOPICAL CREAM 15 GM TUBE TP SCH ×2 (16:17→22:00)
[2016-10-16] MEDS: ACETAMINOPHEN 325 MG TABLET (FP) PO PRN (19:54)
[2016-10-16] MEDS ORDERED: CHLORHEXIDINE GLUCONATE 4% CLEANSER FOR DECOLONIZATION TP SCH (22:00)
[2016-10-16] MEDS ORDERED: MUPIROCIN 2% TOPICAL OINTMENT FOR DECOLONIZATION NS SCH (22:00)
[2016-10-17] MEDS: ACETAMINOPHEN 325 MG TABLET (FP) PO PRN ×2 (06:15→21:52)
[2016-10-17 07:19] LABS: MCH 30.3 pg (25.7-33.7); MEAN CELL VOLUME 91.8 fl (80-96); MEAN PLT VOLUME 6.4 fl (7.5-11.1); PLATELET COUNT 411 K/MM3 (134-434); RDW 16.1 % (11.6-15.6); WHITE BLOOD COUNT 9.4 K/mm3 (4.0-10.0)
[2016-10-17 07:53] LABS: ANION GAP 6 (8-16); CALCIUM 8.8 mg/dL (8.5-10.1); CO2 35 mmol/L (21-32); GLUCOSE,RANDOM 91 mg/dL (74-106); MAGNESIUM 2.3 mg/dL (1.8-2.4)
[2016-10-17 07:54] LABS: CREATININE 0.2 mg/dL (0.55-1.02)
[2016-10-17] MEDS ORDERED: PT OWN MED DRAWER 7, Y5N ONE (08:34)
[2016-10-17] MEDS: AMINO ACIDS/PROTEIN HYDROLYS 30 ML LIQUID.PKT PO SCH ×2 (08:43→18:34)
[2016-10-17] MEDS: CITALOPRAM HYDROBROMIDE 10 MG TABLET (FP) PO SCH (09:07)
[2016-10-17] MEDS: NYSTATIN 100,000 UNIT/GM TOPICAL CREAM 15 GM TUBE TP SCH ×2 (09:07→21:53)
[2016-10-17] MEDS: ZINC SULFATE 220 MG CAPSULE (FP) PO SCH (09:08)
[2016-10-17] MEDS: MULTIVITAMINS (DAILY MVI) TABLET (FP) PO SCH (09:08)
[2016-10-17] MEDS: MIDODRINE HCL 2.5 MG TABLET PO SCH (09:08)
[2016-10-17] MEDS: BACLOFEN 10 MG TABLET (FP) PO SCH ×2 (09:08→21:50)
[2016-10-17] MEDS: ERTAPENEM SODIUM 1 GM in SODIUM CHLORIDE 50 ML IVPB SCH (10:53)
--- NOTE | 2016-10-17 13:24 | OP ---
DATE OF OPERATION: 10/16/2016 PREOPERATIVE DIAGNOSIS: Stage 4 necrotic sacral ulcer. POSTOPERATIVE DIAGNOSIS: Stage 4 necrotic sacral ulcer. PROCEDURE: Excisional debridement of skin, subcutaneous tissue, and muscle, sacrum. SURGEON: Luis Vargas DO ANESTHESIA: Fractional. BLOOD LOSS: 20 mL INDICATION FOR PROCEDURE: The patient is a 66-year-old female who has a necrotic sacral ulcer, stage 4. We attempted to do a bedside debridement on Sunday to wash out all the pus, but she has necrotic tissue going through the skin, subcutaneous tissue, and muscle that needs to be excised; decided that we should do that in the operating room. Patient was consented for the procedure, understanding all risks, benefits, and alternatives, and taken to the operating room. DESCRIPTION OF PROCEDURE: Once in the operating suite, on the operating table, and with her left side down, the area of the sacrum was prepped and draped in a sterile surgical manner. Next, 10 mL of lidocaine 1% were injected over the necrotic areas. We then went ahead and used a number-15 blade and went ahead and excised all the necrotic tissue going through skin, subcutaneous tissue, and muscle. Bovie electrocautery was then used to control hemostasis and excise further necrotic tissue. The wound was then well irrigated and packed with saline-moist dressing, 4 x 4's, and ABD pads. Patient tolerated the procedure with no complications. There were no signs of any pus. There was good clean tissue. Total blood loss: 20 mL. Patient transferred back to the intensive care unit in stable condition. LUIS VARGAS DO TRIMMING CASER/[id number]
--- NOTE | 2016-10-17 14:29 | PN ---
Progress Note (short form) - Note Progress Note: reports not feeling well- attributes it to starting midodrine yesterday s/p debridement 10/16 o2 sat 99% Vital Signs Period Temp Pulse Resp BP Sys/Pressley Pulse Ox Last 24 Hr 97.2 F-97.5 F 69-83 18-20 95-108/63-72 cor-rrr lungs decreased bs at bases abd soft,nt ext contracted CBC, BMP 10/17/16 05:35 10/17/16 05:35 Microbiology 10/13/16 14:30 Decubiti Gram Stain - Final 10/13/16 14:30 Decubiti Wound Culture - Preliminary Morganella Morganii Group D Strep Or Entero Coccus Escherichia Coli 10/12/16 12:23 Blood - Peripheral Venous Blood Culture - Final NO GROWTH AFTER 5 DAYS INCUBATION 10/12/16 12:30 Blood - Peripheral Venous Blood Culture - Final NO GROWTH AFTER 5 DAYS INCUBATION 10/12/16 14:10 Decubiti Gram Stain - Final 10/12/16 14:10 Decubiti Wound Culture - Final Providencia Stuartii Bacteroides Fragilis a/p s/p debridement of infected decubitus continue ertapenem ?side effect of midodrine- PMD to evaluate check ekg and cxray metastatic breast cancer Problem List - Problems (1) Sepsis Code(s): A41.9 - SEPSIS, UNSPECIFIED ORGANISM (2) Infected decubitus ulcer Code(s): L89.90 - PRESSURE ULCER OF UNSPECIFIED SITE, UNSPECIFIED STAGE L08.9 - LOCAL INFECTION OF THE SKIN AND SUBCUTANEOUS TISSUE, UNSP (3) Metastatic breast cancer Code(s): C50.919 - MALIGNANT NEOPLASM OF UNSP SITE OF UNSPECIFIED FEMALE BREAST
--- NOTE | 2016-10-17 14:47 | PATH ---
Surgical Pathology Report Patient Name: MEENU WARD Med. Rec. #: [id number] /Age/Gender: 1950 (Age: 66) / F Account: [id number] Location: [address] [place] [address]/[facility] Taken: 10/16/2016 Received: 10/16/2016 Reported: 10/17/2016 Physicians: Luis Marrero M.D. Specimen(s) Received DEBRIDEMENT TISSUE SACRAL ULCER Clinical History Sacral ulcer Final Diagnosis SOFT TISSUE, SACRAL ULCER, DEBRIDEMENT: GANGRENOUS NECROSIS. Electronically Signed Mike Osorio M.D. Gross Description Received in formalin labeled "sacral debrided tissue" is a 6.0 x 5.0 x 1.5 cm aggregate of zimmer-grover, necrotic portions of soft tissue. [employer] sections are submitted in one cassette. /10/16/2016 saudi10/16/2016
--- NOTE | 2016-10-17 15:45 | EKG ---
Test Reason : Blood Pressure : / mmHG Vent. Rate : 056 BPM Atrial Rate : 056 BPM P-R Int : 000 ms QRS Dur : 092 ms QT Int : 450 ms P-R-T Axes : 000 033 079 degrees QTc Int : 434 ms LOW ATRIAL VS ACCELERATED JUNCTIONAL RHYTHM NONSPECIFIC T WAVE ABNORMALITY ABNORMAL ECG WHEN COMPARED WITH ECG OF 12-OCT-2016 12:22, RHYTHM CHAGE ABOVE VENT. RATE HAS DECREASED BY 44 BPM QRS DURATION HAS INCREASED Qtc HAS INCREASED TO BE RULED OUT. NONSPECIFIC T WAVE ABNORMALITY NOW EVIDENT IN ANTEROLATERAL LEADS F/U TRACINGB IS RECOMMENDED. Confirmed by ANTHONY CANO MD ([id number]) on 10/17/2016 3:45:23 PM Referred By: ASHLI SHAHID Confirmed By:ANTHONY CANO MD
--- NOTE | 2016-10-17 16:23 | PN ---
Progress Note, Physician Chief Complaint: awake family bedside i discussed the dyspnea she is having and that she is refusing ct-angio of chest to r/o pulmonary embolism. - Current Medication List Current Medications: Active Medications Acetaminophen (Tylenol -) 650 mg PO Q6H PRN PRN Reason: FEVER OR PAIN Last Admin: 10/17/16 06:15 Dose: 650 mg Albuterol/Ipratropium (Duoneb -) 1 amp NEB Q6H PRN PRN Reason: SHORTNESS OF BREATH Alprazolam (Xanax -) 0.25 mg PO Q6H PRN PRN Reason: ANXIETY Amino Acids (Prosource No Carb Liquid Pkt) 30 ml PO BID@0800,1730 [facility] Last Admin: 10/17/16 08:43 Dose: 30 ml Baclofen (Lioresal -) 10 mg PO BID [facility] Last Admin: 10/17/16 09:08 Dose: 5 mg Citalopram Hydrobromide (Celexa -) 10 mg PO DAILY [facility] Last Admin: 10/17/16 09:07 Dose: Not Given Enoxaparin Sodium (Lovenox -) 60 mg SQ Q12H [facility] Ertapenem 1 gm/ Sodium (Chloride) 50 mls @ 50 mls/hr IVPB DAILY [facility] PRN Reason: Protocol Last Admin: 10/17/16 10:53 Dose: 50 mls/hr Midodrine (Proamatine -) 2.5 mg PO TID-MID [facility] Last Admin: 10/17/16 09:08 Dose: 2.5 mg Multivitamins/Minerals/Vitamin C (Tab-A-Vit -) 1 tab PO DAILY [facility] Last Admin: 10/17/16 09:08 Dose: 1 tab Nystatin (Mycostatin Cream -) 1 applic TP BID [facility] Last Admin: 10/17/16 09:07 Dose: Not Given Sodium Chloride (Normal Saline -) 1,000 ml IV Q20M PRN PRN Reason: MAP<65mm Hg OR SBP <90 Zinc Sulfate (Orazinc -) 220 mg PO DAILY [facility] Last Admin: 10/17/16 09:08 Dose: 220 mg - Objective Vital Signs: Vital Signs Temperature 97.2 F L 10/17/16 14:00 Pulse Rate 83 10/17/16 14:00 Respiratory Rate 20 10/17/16 14:00 Blood Pressure 108/72 10/17/16 14:00 O2 Sat by Pulse Oximetry (%) 99 10/17/16 09:00 Constitutional: Yes: Mild Distress Eyes: Yes: WNL HENT: Yes: WNL Neck: Yes: WNL Cardiovascular: Yes: Tachycardia Respiratory: Yes: On Nasal O2, Poor Air Entry Gastrointestinal: Yes: WNL Genitourinary: Yes: Incontinence Musculoskeletal: Yes: Muscle Weakness Extremities: Yes: Other Edema: Yes Edema: LLE: 1+, RLE: 1+ Peripheral Pulses WNL: Yes Integumentary: Yes: Venous Stasis Changes, Other Wound/Incision: Yes: Dressing Dry and Intact, Unapproximated Neurological: Yes: Loss of Sensation, Pre-Existing Deficit, Weakness ...Motor Strength: LLE, RLE Psychiatric: Yes: Agitated, Other Labs: CBC, BMP 10/17/16 05:35 10/17/16 05:35 INR, PTT INR 1.37 (0.82-1.09) H 10/12/16 11:59 Problem List - Problems (1) Infected decubitus ulcer Code(s): L89.90 - PRESSURE ULCER OF UNSPECIFIED SITE, UNSPECIFIED STAGE L08.9 - LOCAL INFECTION OF THE SKIN AND SUBCUTANEOUS TISSUE, UNSP (2) Metastatic breast cancer Code(s): C50.919 - MALIGNANT NEOPLASM OF UNSP SITE OF UNSPECIFIED FEMALE BREAST (3) Sepsis Code(s): A41.9 - SEPSIS, UNSPECIFIED ORGANISM (4) Sepsis associated hypotension Code(s): A41.9 - SEPSIS, UNSPECIFIED ORGANISM (5) Atrial fibrillation Code(s): I48.91 - UNSPECIFIED ATRIAL FIBRILLATION Qualifiers: Atrial fibrillation type: paroxysmal Qualified Code(s): I48.0 - Paroxysmal atrial fibrillation (6) COPD (chronic obstructive pulmonary disease) Code(s): J44.9 - CHRONIC OBSTRUCTIVE PULMONARY DISEASE, UNSPECIFIED (7) Dyspnea and respiratory abnormalities Code(s): R06.00 - DYSPNEA, UNSPECIFIED R06.89 - OTHER ABNORMALITIES OF BREATHING Assessment/Plan refusing PE workup I ordered d-dimer level ABG Ct Chest with contrast 02 support lovenox bid 60mg discussed with family bedside and staff, patient will think about it she has ability to make decisions.
[2016-10-17 17:20] LABS: ARTERIAL BLD GAS O2 SATURATION 96.7 % (90-98.9); ARTERIAL BLOOD GAS PO2 81.9 mmHg (80-100); ARTERIAL BLOOD GAS pH 7.43 (7.35-7.45)
[2016-10-17 17:21] LABS: ALLENS TEST POSITIVE; ART PUNCT SITE RIGHT RADIAL; LPM/O2% 3L; PT. ON O2? YES; TYPE OF O2 NASAL
[2016-10-17 17:24] LABS: ARTERIAL BLOOD GAS HCO3 34.2 meq/L (22-26)
[2016-10-17] MEDS: ENOXAPARIN NA (PORCINE) 60 MG/0.6 ML DISP.SYRIN SQ SCH (18:15)
[2016-10-18] MEDS: ENOXAPARIN NA (PORCINE) 60 MG/0.6 ML DISP.SYRIN SQ SCH ×2 (04:59→17:52)
[2016-10-18] MEDS: AMINO ACIDS/PROTEIN HYDROLYS 30 ML LIQUID.PKT PO SCH ×2 (08:49→17:49)
[2016-10-18] MEDS: ERTAPENEM SODIUM 1 GM in SODIUM CHLORIDE 50 ML IVPB SCH (10:52)
[2016-10-18] MEDS: CITALOPRAM HYDROBROMIDE 10 MG TABLET (FP) PO SCH (12:01)
[2016-10-18] MEDS: BACLOFEN 10 MG TABLET (FP) PO SCH ×2 (12:01→21:14)
[2016-10-18] MEDS: MIDODRINE HCL 2.5 MG TABLET PO SCH ×3 (12:01→17:51)
[2016-10-18] MEDS: MULTIVITAMINS (DAILY MVI) TABLET (FP) PO SCH (12:02)
[2016-10-18] MEDS: NYSTATIN 100,000 UNIT/GM TOPICAL CREAM 15 GM TUBE TP SCH ×2 (12:02→21:14)
[2016-10-18] MEDS: ZINC SULFATE 220 MG CAPSULE (FP) PO SCH (12:02)
--- NOTE | 2016-10-18 13:10 | PN ---
Progress Note (short form) - Note Progress Note: PULMONARY AWAKE/ALERT VSS/AFEBRILE PALE/ON O2 ANICTERIC DIMINISHED B/L BREATH SOUNDS AT BASES S1S2 BS+ SOFT NONTENDER S/P DECUBITAL ULCER DEBRIDED NO EDEMA LOWER EXT LABS/MEDS/NOTES/IMAGING/MICRO REVIEWED Septic Shock due to an infected sacral decubitus ulcer now debrided Hypotension infiltrate/effusion on CXR Wheelchair bound PLAN: S/P debridement Wound care per surgery IVF as needed ABX per ID VTE prophylaxis D-Dimer only helpful if normal low index of suspicion for PE Continue current treatment Rosario ROJAS MD
--- NOTE | 2016-10-18 16:49 | PN ---
Progress Note, Physician Chief Complaint: ASLEEP DOES NOT WANT ANY EXAMS TODAY - Current Medication List Current Medications: Active Medications Acetaminophen (Tylenol -) 650 mg PO Q6H PRN PRN Reason: FEVER OR PAIN Last Admin: 10/17/16 21:52 Dose: 650 mg Albuterol/Ipratropium (Duoneb -) 1 amp NEB Q6H PRN PRN Reason: SHORTNESS OF BREATH Alprazolam (Xanax -) 0.25 mg PO Q6H PRN PRN Reason: ANXIETY Amino Acids (Prosource No Carb Liquid Pkt) 30 ml PO BID@0800,1730 [facility] Last Admin: 10/18/16 08:49 Dose: 30 ml Baclofen (Lioresal -) 10 mg PO BID [facility] Last Admin: 10/18/16 12:01 Dose: Not Given Citalopram Hydrobromide (Celexa -) 10 mg PO DAILY [facility] Last Admin: 10/18/16 12:01 Dose: Not Given Enoxaparin Sodium (Lovenox -) 60 mg SQ BID@0500,1700 [facility] Last Admin: 10/18/16 04:59 Dose: Not Given Ertapenem 1 gm/ Sodium (Chloride) 50 mls @ 50 mls/hr IVPB DAILY [facility] PRN Reason: Protocol Last Admin: 10/18/16 10:52 Dose: 50 mls/hr Midodrine (Proamatine -) 2.5 mg PO TID-MID [facility] Last Admin: 10/18/16 12:01 Dose: Not Given Multivitamins/Minerals/Vitamin C (Tab-A-Vit -) 1 tab PO DAILY [facility] Last Admin: 10/18/16 12:02 Dose: Not Given Nystatin (Mycostatin Cream -) 1 applic TP BID [facility] Last Admin: 10/18/16 12:02 Dose: Not Given Sodium Chloride (Normal Saline -) 1,000 ml IV Q20M PRN PRN Reason: MAP<65mm Hg OR SBP <90 Zinc Sulfate (Orazinc -) 220 mg PO DAILY [facility] Last Admin: 10/18/16 12:02 Dose: Not Given - Objective Vital Signs: Vital Signs Temperature 97.9 F 10/18/16 14:00 Pulse Rate 67 10/18/16 14:00 Respiratory Rate 17 10/18/16 14:00 Blood Pressure 116/72 10/18/16 09:00 O2 Sat by Pulse Oximetry (%) 96 10/17/16 21:00 Constitutional: Yes: No Distress Eyes: Yes: WNL HENT: Yes: WNL Neck: Yes: WNL Cardiovascular: Yes: WNL Respiratory: Yes: WNL Gastrointestinal: Yes: WNL Genitourinary: Yes: WNL Musculoskeletal: Yes: Muscle Weakness Extremities: Yes: WNL Edema: No Peripheral Pulses WNL: Yes Integumentary: Yes: Pressure Ulcer Wound/Incision: Yes: Dressing Dry and Intact Neurological: Yes: Pre-Existing Deficit ...Motor Strength: LLE, RLE Psychiatric: Yes: Agitated, Other Labs: CBC, BMP 10/17/16 05:35 10/17/16 05:35 INR, PTT INR 1.37 (0.82-1.09) H 10/12/16 11:59 Problem List - Problems (1) Infected decubitus ulcer Code(s): L89.90 - PRESSURE ULCER OF UNSPECIFIED SITE, UNSPECIFIED STAGE L08.9 - LOCAL INFECTION OF THE SKIN AND SUBCUTANEOUS TISSUE, UNSP (2) Metastatic breast cancer Code(s): C50.919 - MALIGNANT NEOPLASM OF UNSP SITE OF UNSPECIFIED FEMALE BREAST (3) Sepsis Code(s): A41.9 - SEPSIS, UNSPECIFIED ORGANISM (4) Sepsis associated hypotension Code(s): A41.9 - SEPSIS, UNSPECIFIED ORGANISM (5) Atrial fibrillation Code(s): I48.91 - UNSPECIFIED ATRIAL FIBRILLATION Qualifiers: Atrial fibrillation type: paroxysmal Qualified Code(s): I48.0 - Paroxysmal atrial fibrillation (6) COPD (chronic obstructive pulmonary disease) Code(s): J44.9 - CHRONIC OBSTRUCTIVE PULMONARY DISEASE, UNSPECIFIED (7) Dyspnea and respiratory abnormalities Code(s): R06.00 - DYSPNEA, UNSPECIFIED R06.89 - OTHER ABNORMALITIES OF BREATHING Assessment/Plan DOUBT PE ON LOVENOX IV ABX PER ID WOUND CARE SNF PLACEMENT
[2016-10-18] MEDS: ACETAMINOPHEN 325 MG TABLET (FP) PO PRN (17:58)
--- NOTE | 2016-10-18 18:18 | PN ---
Progress Note (short form) - Note Progress Note: feels better Vital Signs Period Temp Pulse Resp BP Sys/Pressley Pulse Ox Last 24 Hr 97.9 F-98.0 F 67-72 17-20 106-116/64-72 96 cor-rrr lungs decreased bs at bases abd soft,nt ext contracted CBC, BMP 10/17/16 05:35 10/17/16 05:35 Microbiology 10/13/16 14:30 Decubiti Gram Stain - Final 10/13/16 14:30 Decubiti Wound Culture - Final Morganella Morganii Enterococcus Faecalis Escherichia Coli 10/12/16 12:23 Blood - Peripheral Venous Blood Culture - Final NO GROWTH AFTER 5 DAYS INCUBATION 10/12/16 12:30 Blood - Peripheral Venous Blood Culture - Final NO GROWTH AFTER 5 DAYS INCUBATION 10/12/16 14:10 Decubiti Gram Stain - Final 10/12/16 14:10 Decubiti Wound Culture - Final Providencia Stuartii Bacteroides Fragilis a/p s/p debridement of infected decubitus continue ertapenem- refusing to let me see her ulcer today- will try tomorrow metastatic breast cancer Problem List - Problems (1) Sepsis Code(s): A41.9 - SEPSIS, UNSPECIFIED ORGANISM (2) Infected decubitus ulcer Code(s): L89.90 - PRESSURE ULCER OF UNSPECIFIED SITE, UNSPECIFIED STAGE L08.9 - LOCAL INFECTION OF THE SKIN AND SUBCUTANEOUS TISSUE, UNSP (3) Metastatic breast cancer Code(s): C50.919 - MALIGNANT NEOPLASM OF UNSP SITE OF UNSPECIFIED FEMALE BREAST
[2016-10-19] MEDS: ENOXAPARIN NA (PORCINE) 60 MG/0.6 ML DISP.SYRIN SQ SCH ×2 (05:04→18:39)
[2016-10-19] MEDS: AMINO ACIDS/PROTEIN HYDROLYS 30 ML LIQUID.PKT PO SCH ×2 (09:11→18:10)
--- NOTE | 2016-10-19 10:04 | DS ---
Physical Examination Vital Signs: Vital Signs Temperature 97.5 F L 10/19/16 09:10 Pulse Rate 99 H 10/19/16 09:10 Respiratory Rate 18 10/19/16 09:10 Blood Pressure 106/46 10/19/16 09:10 O2 Sat by Pulse Oximetry (%) 96 10/18/16 20:41 Constitutional: Yes: No Distress Eyes: Yes: WNL HENT: Yes: WNL Neck: Yes: WNL Cardiovascular: Yes: Pulse Irregular Respiratory: Yes: WNL Gastrointestinal: Yes: WNL Renal/: Yes: WNL Musculoskeletal: Yes: Muscle Weakness Extremities: Yes: Other Edema: No Peripheral Pulses WNL: Yes Integumentary: Yes: Pressure Ulcer (STAGE 3-4 DEBRIDED) Wound/Incision: Yes: Dressing Dry and Intact Neurological: Yes: Pre-Existing Deficit ...Motor Strength: LLE, RLE Psychiatric: Yes: Agitated Labs: CBC, BMP 10/17/16 05:35 10/17/16 05:35 Discharge Summary Reason For Visit: SEPSIS Current Active Problems Dyspnea and respiratory abnormalities (Acute) Infected decubitus ulcer (Acute) Metastatic breast cancer (Acute) Sepsis (Acute) Sepsis associated hypotension (Acute) Procedures: Principal: DEBRIDED STAGE 4 ULCER OF SACRAM IN O.R. Other Procedures: LABS/CX Hospital Course: ADMITTED FOR IV ABX, WOUND DEBRIDEMENT, CX, PT , DOING WELL, RESOLVING, WILL NEED IV ABX PER ID Condition: Fair - Instructions Diet, Activity, Other Instructions: RAYMONE DYSPHAGIA Referrals: Javed Ball [Primary Care Provider] - Disposition: [facility] - Home Medications Comprehensive Discharge Medication List: Ambulatory Orders Albuterol 0.083% Nebulizer Bella [Ventolin 0.083%] 1 neb NEB QID PRN 08/31/16 Amino Acids/Protein Hydrolys [Pro-Stat Sugar Free Liquid] 30 ml PO BID 08/31/16 Amox-Tr/K Cl [Augmentin - 875Mg Tablet] 1 tab PO BID 08/31/16 Ascorbic Acid [Vitamin C -] 500 mg PO DAILY 08/31/16 Azithromycin [Zithromax -] 1 tab PO DAILY 08/31/16 Baclofen 10 mg PO DAILY 08/31/16 Calcium Carbonate/Vitamin D3 [Eq Calcium 500-Vit D3 400 Tab] 1 each PO BID 08/31 Citalopram Hydrobromide [Celexa -] 20 mg PO DAILY 08/31/16 Diazepam [Valium] 5 mg PO HS 08/31/16 Docusate Sodium [Colace -] 100 mg PO DAILY 08/31/16 Enoxaparin [Lovenox -] 40 mg SQ DAILY 08/31/16 Guaifenesin [Robitussin -] 10 ml PO Q6H PRN 08/31/16 Loperamide HCl [Imodium A-D] 2 mg PO PRN 08/31/16 Magnesium Hydroxide [Milk of Magnesia] 400 mg PO PRN 08/31/16 Na Phos,M-B/Na Phos,Di-Ba [Fleet Enema] 133 ml RC PRN 08/31/16 Nystatin/Triamcinolone Top Cr [Mycolog II -] 1 applic TP BID 08/31/16 Sennosides [Senna] 8.6 mg PO HS 08/31/16 Zinc Sulfate 220 mg PO DAILY 08/31/16 Acetaminophen [Tylenol .Regular Strength -] 650 mg PO Q4H PRN #0 tablet Arformoterol Tartrate [Brovana -] 1 amp NEB BID amp 09/20/16 Cefuroxime Axetil [Ceftin -] 500 mg PO BID 5 Days 09/20/16 Collagenase Clostridium Hist. [Santyl -] 1 applic TP DAILY tube 09/20/16 Polyethylene Glycol 3350 [Miralax 119 gm Btl -] 17 gm PO DAILY bottle 09/20/16
[2016-10-19] MEDS ORDERED: PT OWN MED DRAWER 7, Y5N ONE (10:35)
[2016-10-19] MEDS: CITALOPRAM HYDROBROMIDE 10 MG TABLET (FP) PO SCH (10:49)
[2016-10-19] MEDS: MULTIVITAMINS (DAILY MVI) TABLET (FP) PO SCH (10:50)
[2016-10-19] MEDS: ZINC SULFATE 220 MG CAPSULE (FP) PO SCH (10:50)
[2016-10-19] MEDS: MIDODRINE HCL 2.5 MG TABLET PO SCH ×3 (10:50→18:39)
[2016-10-19] MEDS: BACLOFEN 10 MG TABLET (FP) PO SCH ×2 (10:50→22:07)
[2016-10-19] MEDS: ERTAPENEM SODIUM 1 GM in SODIUM CHLORIDE 50 ML IVPB SCH (10:51)
[2016-10-19] MEDS: NYSTATIN 100,000 UNIT/GM TOPICAL CREAM 15 GM TUBE TP SCH ×2 (10:52→22:00)
--- NOTE | 2016-10-19 15:24 | PN ---
Progress Note (short form) - Note Progress Note: feels better Vital Signs Period Temp Pulse Resp BP Sys/Pressley Pulse Ox Last 24 Hr 97.5 F-98.1 F 65-108 18-20 95-127/46-65 94-96 cor-rrr lungs clear abd soft,nt sacral ulcer half clean with granulation, other half is necrotic CBC, BMP 10/17/16 05:35 10/17/16 05:35 a/p s/p debridement of infected decubitus continue ertapenem- needs further debridement metastatic breast cancer Problem List - Problems (1) Sepsis Code(s): A41.9 - SEPSIS, UNSPECIFIED ORGANISM (2) Infected decubitus ulcer Code(s): L89.90 - PRESSURE ULCER OF UNSPECIFIED SITE, UNSPECIFIED STAGE L08.9 - LOCAL INFECTION OF THE SKIN AND SUBCUTANEOUS TISSUE, UNSP (3) Metastatic breast cancer Code(s): C50.919 - MALIGNANT NEOPLASM OF UNSP SITE OF UNSPECIFIED FEMALE BREAST
[2016-10-20] MEDS ORDERED: ALPRAZolam 0.25 MG TABLET PO PRN (00:57)
[2016-10-20] MEDS: ENOXAPARIN NA (PORCINE) 60 MG/0.6 ML DISP.SYRIN SQ SCH ×2 (05:45→18:33)
--- NOTE | 2016-10-20 07:36 | PN ---
Progress Note (short form) - Note Progress Note: ADDENDUM DIAGNOSIS PATIENT IS A FUNCTIONAL QUARIPLEGIC IN SETTING OF MUSCLE WEAKNESS/CONTRACTURES AND STAGE 4 SACRAL ULCERS. Problem List - Problems (1) Infected decubitus ulcer Code(s): L89.90 - PRESSURE ULCER OF UNSPECIFIED SITE, UNSPECIFIED STAGE L08.9 - LOCAL INFECTION OF THE SKIN AND SUBCUTANEOUS TISSUE, UNSP (2) Metastatic breast cancer Code(s): C50.919 - MALIGNANT NEOPLASM OF UNSP SITE OF UNSPECIFIED FEMALE BREAST (3) Sepsis Code(s): A41.9 - SEPSIS, UNSPECIFIED ORGANISM (4) Sepsis associated hypotension Code(s): A41.9 - SEPSIS, UNSPECIFIED ORGANISM (5) Atrial fibrillation Code(s): I48.91 - UNSPECIFIED ATRIAL FIBRILLATION Qualifiers: Atrial fibrillation type: paroxysmal Qualified Code(s): I48.0 - Paroxysmal atrial fibrillation (6) COPD (chronic obstructive pulmonary disease) Code(s): J44.9 - CHRONIC OBSTRUCTIVE PULMONARY DISEASE, UNSPECIFIED (7) Dyspnea and respiratory abnormalities Code(s): R06.00 - DYSPNEA, UNSPECIFIED R06.89 - OTHER ABNORMALITIES OF BREATHING
[2016-10-20] MEDS: AMINO ACIDS/PROTEIN HYDROLYS 30 ML LIQUID.PKT PO SCH ×2 (08:24→18:33)
[2016-10-20] MEDS ORDERED: PT OWN MED DRAWER 7, Y5N ONE (10:41)
[2016-10-20] MEDS: BACLOFEN 10 MG TABLET (FP) PO SCH ×2 (10:48→22:42)
[2016-10-20] MEDS: ZINC SULFATE 220 MG CAPSULE (FP) PO SCH (10:48)
[2016-10-20] MEDS: ERTAPENEM SODIUM 1 GM in SODIUM CHLORIDE 50 ML IVPB SCH (10:48)
[2016-10-20] MEDS: MULTIVITAMINS (DAILY MVI) TABLET (FP) PO SCH (10:48)
[2016-10-20] MEDS: NYSTATIN 100,000 UNIT/GM TOPICAL CREAM 15 GM TUBE TP SCH ×2 (10:50→22:43)
[2016-10-20] MEDS: MIDODRINE HCL 2.5 MG TABLET PO SCH ×3 (10:50→18:33)
[2016-10-20] MEDS: CITALOPRAM HYDROBROMIDE 10 MG TABLET (FP) PO SCH (10:50)
--- NOTE | 2016-10-20 11:09 | PN ---
Progress Note, Physician Chief Complaint: awake alert no fever or chills appetite is good - Current Medication List Current Medications: Active Medications Acetaminophen (Tylenol -) 650 mg PO Q6H PRN PRN Reason: FEVER OR PAIN Last Admin: 10/18/16 17:58 Dose: 650 mg Albuterol/Ipratropium (Duoneb -) 1 amp NEB Q6H PRN PRN Reason: SHORTNESS OF BREATH Alprazolam (Xanax -) 0.25 mg PO Q6H PRN Amino Acids (Prosource No Carb Liquid Pkt) 30 ml PO BID@0800,1730 [facility] Last Admin: 10/20/16 08:24 Dose: 30 ml Baclofen (Lioresal -) 10 mg PO BID [facility] Last Admin: 10/20/16 10:48 Dose: 10 mg Citalopram Hydrobromide (Celexa -) 10 mg PO DAILY [facility] Last Admin: 10/20/16 10:50 Dose: Not Given Enoxaparin Sodium (Lovenox -) 60 mg SQ BID@0500,1700 [facility] Last Admin: 10/20/16 05:45 Dose: Not Given Ertapenem 1 gm/ Sodium (Chloride) 50 mls @ 50 mls/hr IVPB DAILY [facility] PRN Reason: Protocol Last Admin: 10/20/16 10:48 Dose: 50 mls/hr Midodrine (Proamatine -) 2.5 mg PO TID-MID [facility] Last Admin: 10/20/16 10:50 Dose: 2.5 mg Multivitamins/Minerals/Vitamin C (Tab-A-Vit -) 1 tab PO DAILY [facility] Last Admin: 10/20/16 10:48 Dose: 1 tab Nystatin (Mycostatin Cream -) 1 applic TP BID [facility] Last Admin: 10/20/16 10:50 Dose: 1 applic Sodium Chloride (Normal Saline -) 1,000 ml IV Q20M PRN PRN Reason: MAP<65mm Hg OR SBP <90 Zinc Sulfate (Orazinc -) 220 mg PO DAILY [facility] Last Admin: 10/20/16 10:48 Dose: 220 mg - Objective Vital Signs: Vital Signs Temperature 98 F 10/20/16 06:00 Pulse Rate 96 H 10/20/16 10:16 Respiratory Rate 20 10/20/16 06:00 Blood Pressure 88/58 10/20/16 06:00 O2 Sat by Pulse Oximetry (%) 98 10/20/16 10:16 Constitutional: Yes: No Distress Eyes: Yes: WNL HENT: Yes: WNL Neck: Yes: WNL Cardiovascular: Yes: Pulse Irregular Respiratory: Yes: WNL Gastrointestinal: Yes: WNL Genitourinary: Yes: Incontinence Musculoskeletal: Yes: Muscle Weakness Extremities: Yes: Other Edema: No Peripheral Pulses WNL: Yes Integumentary: Yes: WNL Wound/Incision: Yes: Dressing Dry and Intact Neurological: Yes: Numbness, Pre-Existing Deficit, Weakness ...Motor Strength: LLE, RLE Psychiatric: Yes: Other Labs: CBC, BMP 10/17/16 05:35 10/17/16 05:35 INR, PTT INR 1.37 (0.82-1.09) H 10/12/16 11:59 Problem List - Problems (1) Infected decubitus ulcer Code(s): L89.90 - PRESSURE ULCER OF UNSPECIFIED SITE, UNSPECIFIED STAGE L08.9 - LOCAL INFECTION OF THE SKIN AND SUBCUTANEOUS TISSUE, UNSP (2) Metastatic breast cancer Code(s): C50.919 - MALIGNANT NEOPLASM OF UNSP SITE OF UNSPECIFIED FEMALE BREAST (3) Sepsis Code(s): A41.9 - SEPSIS, UNSPECIFIED ORGANISM (4) Sepsis associated hypotension Code(s): A41.9 - SEPSIS, UNSPECIFIED ORGANISM (5) Atrial fibrillation Code(s): I48.91 - UNSPECIFIED ATRIAL FIBRILLATION Qualifiers: Atrial fibrillation type: paroxysmal Qualified Code(s): I48.0 - Paroxysmal atrial fibrillation (6) COPD (chronic obstructive pulmonary disease) Code(s): J44.9 - CHRONIC OBSTRUCTIVE PULMONARY DISEASE, UNSPECIFIED (7) Dyspnea and respiratory abnormalities Code(s): R06.00 - DYSPNEA, UNSPECIFIED R06.89 - OTHER ABNORMALITIES OF BREATHING (8) Quadriplegia Assessment/Plan: in setting of neuropathy/muscle contractions/sepsis Code(s): G82.50 - QUADRIPLEGIA, UNSPECIFIED Assessment/Plan will need debridement in OR with surgery iv abx hold off on transfer to [facility] lovenox bid
[2016-10-20] MEDS: ACETAMINOPHEN 325 MG TABLET (FP) PO PRN (12:24)
--- NOTE | 2016-10-20 13:25 | PN ---
Progress Note (short form) - Note Progress Note: PULMONARY AWAKE/ALERT VSS/AFEBRILE PALE/ON O2 ANICTERIC DIMINISHED B/L BREATH SOUNDS AT BASES S1S2 BS+ SOFT NONTENDER S/P DECUBITAL ULCER DEBRIDED NO EDEMA LOWER EXT LABS/MEDS/NOTES/IMAGING/MICRO REVIEWED Septic Shock due to an infected sacral decubitus ulcer now debrided Hypotension infiltrate/effusion on CXR Wheelchair bound/Severe neuropathy/contracted Breast Ca PLAN: S/P debridement Wound care per surgery IVF as needed ABX per ID VTE prophylaxis low index of suspicion for PE Continue current treatment Rosario ROJAS MD
[2016-10-21] MEDS: ENOXAPARIN NA (PORCINE) 60 MG/0.6 ML DISP.SYRIN SQ SCH ×2 (05:05→17:27)
[2016-10-21 07:26] LABS: ANION GAP 4 (8-16); CALCIUM 8.8 mg/dL (8.5-10.1); CO2 37 mmol/L (21-32); CREATININE 0.2 mg/dL (0.55-1.02); GLUCOSE,RANDOM 84 mg/dL (74-106); MAGNESIUM 2.5 mg/dL (1.8-2.4)
[2016-10-21 07:36] LABS: MCH 30.1 pg (25.7-33.7); MEAN CELL VOLUME 91.2 fl (80-96); MEAN PLT VOLUME 6.8 fl (7.5-11.1); PLATELET COUNT 375 K/MM3 (134-434); RDW 16.1 % (11.6-15.6); WHITE BLOOD COUNT 11.3 K/mm3 (4.0-10.0)
[2016-10-21] MEDS: AMINO ACIDS/PROTEIN HYDROLYS 30 ML LIQUID.PKT PO SCH ×2 (07:52→17:27)
--- NOTE | 2016-10-21 08:37 | PN ---
Progress Note, Physician - Current Medication List Current Medications: Active Medications Acetaminophen (Tylenol -) 650 mg PO Q6H PRN PRN Reason: FEVER OR PAIN Last Admin: 10/20/16 12:24 Dose: 650 mg Albuterol/Ipratropium (Duoneb -) 1 amp NEB Q6H PRN PRN Reason: SHORTNESS OF BREATH Alprazolam (Xanax -) 0.25 mg PO Q6H PRN Amino Acids (Prosource No Carb Liquid Pkt) 30 ml PO BID@0800,1730 [facility] Last Admin: 10/21/16 07:52 Dose: 30 ml Baclofen (Lioresal -) 10 mg PO BID [facility] Last Admin: 10/20/16 22:42 Dose: 10 mg Citalopram Hydrobromide (Celexa -) 10 mg PO DAILY [facility] Last Admin: 10/20/16 10:50 Dose: Not Given Enoxaparin Sodium (Lovenox -) 60 mg SQ BID@0500,1700 [facility] Last Admin: 10/21/16 05:05 Dose: Not Given Ertapenem 1 gm/ Sodium (Chloride) 50 mls @ 50 mls/hr IVPB DAILY [facility] PRN Reason: Protocol Last Admin: 10/20/16 10:48 Dose: 50 mls/hr Midodrine (Proamatine -) 2.5 mg PO TID-MID [facility] Last Admin: 10/20/16 18:33 Dose: 2.5 mg Multivitamins/Minerals/Vitamin C (Tab-A-Vit -) 1 tab PO DAILY [facility] Last Admin: 10/20/16 10:48 Dose: 1 tab Nystatin (Mycostatin Cream -) 1 applic TP BID [facility] Last Admin: 10/20/16 22:43 Dose: Not Given Sodium Chloride (Normal Saline -) 1,000 ml IV Q20M PRN PRN Reason: MAP<65mm Hg OR SBP <90 Zinc Sulfate (Orazinc -) 220 mg PO DAILY [facility] Last Admin: 10/20/16 10:48 Dose: 220 mg - Objective Vital Signs: Vital Signs Temperature 99.1 F 10/21/16 06:03 Pulse Rate 90 10/21/16 06:03 Respiratory Rate 20 10/21/16 06:03 Blood Pressure 104/65 10/21/16 06:03 O2 Sat by Pulse Oximetry (%) 98 10/20/16 21:00 Labs: CBC, BMP 10/21/16 06:20 10/21/16 06:20 INR, PTT INR 1.37 (0.82-1.09) H 10/12/16 11:59 Problem List - Problems (1) Infected decubitus ulcer Assessment/Plan: S/P debridement Wound care per surgery ABX per ID VTE prophylaxis Code(s): L89.90 - PRESSURE ULCER OF UNSPECIFIED SITE, UNSPECIFIED STAGE L08.9 - LOCAL INFECTION OF THE SKIN AND SUBCUTANEOUS TISSUE, UNSP (2) Metastatic breast cancer Assessment/Plan: pain controlled Code(s): C50.919 - MALIGNANT NEOPLASM OF UNSP SITE OF UNSPECIFIED FEMALE BREAST (3) COPD (chronic obstructive pulmonary disease) Assessment/Plan: nebs Code(s): J44.9 - CHRONIC OBSTRUCTIVE PULMONARY DISEASE, UNSPECIFIED (4) Spinal cord compression due to 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
[2016-10-21] MEDS: ERTAPENEM SODIUM 1 GM in SODIUM CHLORIDE 50 ML IVPB SCH (10:00)
[2016-10-21] MEDS: CITALOPRAM HYDROBROMIDE 10 MG TABLET (FP) PO SCH (10:02)
[2016-10-21] MEDS: BACLOFEN 10 MG TABLET (FP) PO SCH ×2 (10:03→22:10)
[2016-10-21] MEDS: MIDODRINE HCL 2.5 MG TABLET PO SCH ×3 (10:03→17:29)
[2016-10-21] MEDS: MULTIVITAMINS (DAILY MVI) TABLET (FP) PO SCH (10:03)
[2016-10-21] MEDS: ZINC SULFATE 220 MG CAPSULE (FP) PO SCH (10:03)
[2016-10-21] MEDS: NYSTATIN 100,000 UNIT/GM TOPICAL CREAM 15 GM TUBE TP SCH ×2 (10:03→22:00)
--- NOTE | 2016-10-21 11:05 | PN ---
Progress Note (short form) - Note Progress Note: No acute events overnight. No CP or SOB. Intake & Output 10/18/16 10/19/16 10/20/16 10/21/16 23:59 23:59 23:59 23:59 Intake Total 450 550 300 200 Balance 450 550 300 200 Weight 108 lb 14.4 oz 112 lb 2 oz 110 lb 8 oz 110 lb 8 oz Last Vital Signs Temp Pulse Resp BP Pulse Ox 99.1 F 90 20 104/65 98 10/21/16 06:03 10/21/16 06:03 10/21/16 06:03 10/21/16 06:03 10/20/16 21:00 Active Medications Acetaminophen (Tylenol -) 650 mg PO Q6H PRN PRN Reason: FEVER OR PAIN Last Admin: 10/20/16 12:24 Dose: 650 mg Albuterol/Ipratropium (Duoneb -) 1 amp NEB Q6H PRN PRN Reason: SHORTNESS OF BREATH Alprazolam (Xanax -) 0.25 mg PO Q6H PRN Amino Acids (Prosource No Carb Liquid Pkt) 30 ml PO BID@0800,1730 [facility] Last Admin: 10/21/16 07:52 Dose: 30 ml Baclofen (Lioresal -) 10 mg PO BID [facility] Last Admin: 10/21/16 10:03 Dose: 10 mg Citalopram Hydrobromide (Celexa -) 10 mg PO DAILY [facility] Last Admin: 10/21/16 10:02 Dose: 10 mg Enoxaparin Sodium (Lovenox -) 60 mg SQ BID@0500,1700 [facility] Last Admin: 10/21/16 05:05 Dose: Not Given Ertapenem 1 gm/ Sodium (Chloride) 50 mls @ 50 mls/hr IVPB DAILY [facility] PRN Reason: Protocol Last Admin: 10/21/16 10:00 Dose: 50 mls/hr Midodrine (Proamatine -) 2.5 mg PO TID-MID [facility] Last Admin: 10/21/16 10:03 Dose: 2.5 mg Multivitamins/Minerals/Vitamin C (Tab-A-Vit -) 1 tab PO DAILY [facility] Last Admin: 10/21/16 10:03 Dose: 1 tab Nystatin (Mycostatin Cream -) 1 applic TP BID [facility] Last Admin: 10/21/16 10:03 Dose: 1 applic Sodium Chloride (Normal Saline -) 1,000 ml IV Q20M PRN PRN Reason: MAP<65mm Hg OR SBP <90 Zinc Sulfate (Orazinc -) 220 mg PO DAILY [facility] Last Admin: 10/21/16 10:03 Dose: 220 mg Constitutional: awake, alert, NAD Eyes: Yes: WNL HENT: Yes: WNL Neck: Yes: WNL Cardiovascular: Yes: Irregular Respiratory: Yes: On Nasal O2 Gastrointestinal: Yes: WNL Renal/: Yes: Other Breast(s): Yes: Other Musculoskeletal: Yes: Back Pain, Muscle Weakness, chronic Extremities: Yes: contracted LE bilateraly, trace LE dependent edema, some reddening c/f stage I on bilateral heels Edema: trace LE Peripheral Pulses WNL: Yes Integumentary: Yes: Pressure Ulcer sacrum, STAGE IV with escar Wound/Incision: Yes: STAGE 4 SACRAL NECROTIC ULCER Neurological: Yes: Pre-Existing Deficit, Weakness ...Motor Strength: LLE, RLE Psychiatric: agitated IMP: Resolved Septic Shock due to an infected sacral decubitus ulcer Hypotension Infected and tunneled wound booked Wheelchair bound PLAN: S/P debridement Wound care per surgery ABX per ID VTE prophylaxis Dr Conde
[2016-10-21] MEDS: ACETAMINOPHEN 325 MG TABLET (FP) PO PRN (22:10)
[2016-10-22] MEDS: ENOXAPARIN NA (PORCINE) 60 MG/0.6 ML DISP.SYRIN SQ SCH (06:33)
[2016-10-22] MEDS: AMINO ACIDS/PROTEIN HYDROLYS 30 ML LIQUID.PKT PO SCH ×2 (08:17→18:08)
[2016-10-22] MEDS: ACETAMINOPHEN 325 MG TABLET (FP) PO PRN ×2 (08:22→22:22)
[2016-10-22] MEDS ORDERED: PT OWN MED DRAWER 7, Y5N ONE ×2 (10:41→18:12)
[2016-10-22] MEDS: ZINC SULFATE 220 MG CAPSULE (FP) PO SCH (10:46)
[2016-10-22] MEDS: BACLOFEN 10 MG TABLET (FP) PO SCH ×2 (10:47→22:19)
[2016-10-22] MEDS: MIDODRINE HCL 2.5 MG TABLET PO SCH ×3 (10:48→18:13)
[2016-10-22] MEDS: MULTIVITAMINS (DAILY MVI) TABLET (FP) PO SCH (10:48)
[2016-10-22] MEDS: CITALOPRAM HYDROBROMIDE 10 MG TABLET (FP) PO SCH (10:48)
[2016-10-22] MEDS: ERTAPENEM SODIUM 1 GM in SODIUM CHLORIDE 50 ML IVPB SCH (10:49)
[2016-10-22] MEDS: NYSTATIN 100,000 UNIT/GM TOPICAL CREAM 15 GM TUBE TP SCH ×2 (10:50→22:20)
[2016-10-22 11:04] LABS: BASOPHIL 0.5 % (0-2.0); EOSINOPHIL 3.2 % (0-4.5); MCH 29.8 pg (25.7-33.7); MCHC 32.5 g/dl (32.0-36.0); MEAN CELL VOLUME 91.9 fl (80-96); MEAN PLT VOLUME 6.9 fl (7.5-11.1); NEUTROPHILS 82.7 % (42.8-82.8); PLATELET COUNT 346 K/MM3 (134-434); RDW 16.1 % (11.6-15.6); WHITE BLOOD COUNT 9.9 K/mm3 (4.0-10.0)
--- NOTE | 2016-10-22 11:10 | PN ---
Progress Note, Physician History of Present Illness: NO NEW COMPLAINTS - Current Medication List Current Medications: Active Medications Acetaminophen (Tylenol -) 650 mg PO Q6H PRN PRN Reason: FEVER OR PAIN Last Admin: 10/22/16 08:22 Dose: 650 mg Albuterol/Ipratropium (Duoneb -) 1 amp NEB Q6H PRN PRN Reason: SHORTNESS OF BREATH Alprazolam (Xanax -) 0.25 mg PO Q6H PRN Amino Acids (Prosource No Carb Liquid Pkt) 30 ml PO BID@0800,1730 [facility] Last Admin: 10/22/16 08:17 Dose: 30 ml Baclofen (Lioresal -) 10 mg PO BID [facility] Last Admin: 10/22/16 10:47 Dose: 10 mg Citalopram Hydrobromide (Celexa -) 10 mg PO DAILY [facility] Last Admin: 10/22/16 10:48 Dose: 10 mg Enoxaparin Sodium (Lovenox -) 40 mg SQ DAILY [facility] Ertapenem 1 gm/ Sodium (Chloride) 50 mls @ 50 mls/hr IVPB DAILY [facility] PRN Reason: Protocol Last Admin: 10/22/16 10:49 Dose: 50 mls/hr Midodrine (Proamatine -) 2.5 mg PO TID-MID [facility] Last Admin: 10/22/16 10:48 Dose: 2.5 mg Multivitamins/Minerals/Vitamin C (Tab-A-Vit -) 1 tab PO DAILY [facility] Last Admin: 10/22/16 10:48 Dose: 1 tab Nystatin (Mycostatin Cream -) 1 applic TP BID [facility] Last Admin: 10/22/16 10:50 Dose: 1 applic Sodium Chloride (Normal Saline -) 1,000 ml IV Q20M PRN PRN Reason: MAP<65mm Hg OR SBP <90 Zinc Sulfate (Orazinc -) 220 mg PO DAILY [facility] Last Admin: 10/22/16 10:46 Dose: 220 mg - Objective Vital Signs: Vital Signs Temperature 98.8 F 10/22/16 06:09 Pulse Rate 74 10/22/16 06:09 Respiratory Rate 20 10/22/16 06:09 Blood Pressure 104/52 10/22/16 06:09 O2 Sat by Pulse Oximetry (%) 93 L 10/21/16 11:31 Cardiovascular: Yes: Regular Rate and Rhythm Respiratory: Yes: Diminished, On Nasal O2 Gastrointestinal: Yes: Normal Bowel Sounds, Soft Labs: CBC, BMP 10/21/16 06:20 INR, PTT INR 1.37 (0.82-1.09) H 10/12/16 11:59 Problem List - Problems (1) Infected decubitus ulcer Assessment/Plan: S/P debridement Wound care per surgery ABX per ID VTE prophylaxis Code(s): L89.90 - PRESSURE ULCER OF UNSPECIFIED SITE, UNSPECIFIED STAGE L08.9 - LOCAL INFECTION OF THE SKIN AND SUBCUTANEOUS TISSUE, UNSP (2) Metastatic breast cancer Assessment/Plan: pain controlled Code(s): C50.919 - MALIGNANT NEOPLASM OF UNSP SITE OF UNSPECIFIED FEMALE BREAST (3) COPD (chronic obstructive pulmonary disease) Assessment/Plan: nebs Code(s): J44.9 - CHRONIC OBSTRUCTIVE PULMONARY DISEASE, UNSPECIFIED (4) Spinal cord compression due to 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 (5) DVT (deep venous thrombosis) Assessment/Plan: LOVENOX 40 SQ DAILY Code(s): I82.409 - ACUTE EMBOLISM AND THOMBOS UNSP DEEP VN UNSP LOWER EXTREMITY
[2016-10-22] MEDS ORDERED: ENOXAPARIN NA (PORCINE) 60 MG/0.6 ML DISP.SYRIN SQ SCH (11:15)
--- NOTE | 2016-10-22 11:29 | PN ---
Progress Note (short form) - Note Progress Note: No acute events overnight. No CP or SOB. Intake & Output 10/19/16 10/20/16 10/21/16 10/22/16 23:59 23:59 23:59 23:59 Intake Total 550 300 920 200 Balance 550 300 920 200 Weight 112 lb 2 oz 110 lb 8 oz 110 lb 8 oz 108 lb 2 oz Last Vital Signs Temp Pulse Resp BP Pulse Ox 98.8 F 74 20 104/52 93 L 10/22/16 06:09 10/22/16 06:09 10/22/16 06:09 10/22/16 06:09 10/21/16 11:31 Active Medications Acetaminophen (Tylenol -) 650 mg PO Q6H PRN PRN Reason: FEVER OR PAIN Last Admin: 10/22/16 08:22 Dose: 650 mg Albuterol/Ipratropium (Duoneb -) 1 amp NEB Q6H PRN PRN Reason: SHORTNESS OF BREATH Alprazolam (Xanax -) 0.25 mg PO Q6H PRN Amino Acids (Prosource No Carb Liquid Pkt) 30 ml PO BID@0800,1730 [facility] Last Admin: 10/22/16 08:17 Dose: 30 ml Baclofen (Lioresal -) 10 mg PO BID [facility] Last Admin: 10/22/16 10:47 Dose: 10 mg Citalopram Hydrobromide (Celexa -) 10 mg PO DAILY [facility] Last Admin: 10/22/16 10:48 Dose: 10 mg Enoxaparin Sodium (Lovenox -) 40 mg SQ DAILY [facility] Ertapenem 1 gm/ Sodium (Chloride) 50 mls @ 50 mls/hr IVPB DAILY [facility] PRN Reason: Protocol Last Admin: 10/22/16 10:49 Dose: 50 mls/hr Midodrine (Proamatine -) 2.5 mg PO TID-MID [facility] Last Admin: 10/22/16 10:48 Dose: 2.5 mg Multivitamins/Minerals/Vitamin C (Tab-A-Vit -) 1 tab PO DAILY [facility] Last Admin: 10/22/16 10:48 Dose: 1 tab Nystatin (Mycostatin Cream -) 1 applic TP BID [facility] Last Admin: 10/22/16 10:50 Dose: 1 applic Sodium Chloride (Normal Saline -) 1,000 ml IV Q20M PRN PRN Reason: MAP<65mm Hg OR SBP <90 Zinc Sulfate (Orazinc -) 220 mg PO DAILY [facility] Last Admin: 10/22/16 10:46 Dose: 220 mg Constitutional: awake, alert, NAD Eyes: Yes: WNL HENT: Yes: WNL Neck: Yes: WNL Cardiovascular: Yes: Irregular Respiratory: Yes: On Nasal O2 Gastrointestinal: Yes: WNL Renal/: Yes: Other Breast(s): Yes: Other Musculoskeletal: Yes: Back Pain, Muscle Weakness, chronic Extremities: Yes: contracted LE bilateraly, trace LE dependent edema, some reddening c/f stage I on bilateral heels Edema: trace LE Peripheral Pulses WNL: Yes Integumentary: Yes: Pressure Ulcer sacrum, STAGE IV with escar Wound/Incision: Yes: STAGE 4 SACRAL NECROTIC ULCER Neurological: Yes: Pre-Existing Deficit, Weakness ...Motor Strength: LLE, RLE Psychiatric: agitated Laboratory Results - last 24 hr 10/22/16 10:18 WBC 9.9 RBC 3.26 L Hgb 9.7 L Hct 29.9 L MCV 91.9 MCH 29.8 MCHC 32.5 RDW 16.1 H Plt Count 346 MPV 6.9 L Neutrophils % 82.7 Lymphocytes % 8.5 Monocytes % 5.1 Eosinophils % 3.2 Basophils % 0.5 IMP: Resolved Septic Shock due to an infected sacral decubitus ulcer Hypotension Infected and tunneled wound booked Wheelchair bound PLAN: S/P debridement Wound care per surgery ABX per ID VTE prophylaxis Dr Conde
[2016-10-23 07:28] LABS: BASOPHIL 0.9 % (0-2.0); EOSINOPHIL 3.5 % (0-4.5); MCH 30.6 pg (25.7-33.7); MCHC 33.5 g/dl (32.0-36.0); MEAN CELL VOLUME 91.3 fl (80-96); MEAN PLT VOLUME 6.6 fl (7.5-11.1); NEUTROPHILS 77.8 % (42.8-82.8); PLATELET COUNT 355 K/MM3 (134-434); RDW 16.2 % (11.6-15.6)
[2016-10-23] MEDS ORDERED: PT OWN MED DRAWER 7, Y5N ONE ×5 (10:35→18:37)
--- NOTE | 2016-10-23 11:06 | PN ---
Progress Note (short form) - Note Progress Note: Awake and alert. No acute events overnight. No CP or SOB. Intake & Output 10/20/16 10/21/16 10/22/16 10/23/16 23:59 23:59 23:59 23:59 Intake Total 300 920 350 550 Balance 300 920 350 550 Weight 110 lb 8 oz 110 lb 8 oz 108 lb 2 oz 104 lb 6 oz Last Vital Signs Temp Pulse Resp BP Pulse Ox 99.1 F 103 H 18 102/52 93 L 10/23/16 06:00 10/23/16 06:00 10/23/16 06:00 10/23/16 06:00 10/21/16 11:31 Active Medications Acetaminophen (Tylenol -) 650 mg PO Q6H PRN PRN Reason: FEVER OR PAIN Last Admin: 10/22/16 22:22 Dose: 650 mg Albuterol/Ipratropium (Duoneb -) 1 amp NEB Q6H PRN PRN Reason: SHORTNESS OF BREATH Alprazolam (Xanax -) 0.25 mg PO Q6H PRN Amino Acids (Prosource No Carb Liquid Pkt) 30 ml PO BID@0800,1730 [facility] Last Admin: 10/22/16 18:08 Dose: 30 ml Baclofen (Lioresal -) 10 mg PO BID [facility] Last Admin: 10/22/16 22:19 Dose: Not Given Citalopram Hydrobromide (Celexa -) 10 mg PO DAILY [facility] Last Admin: 10/22/16 10:48 Dose: 10 mg Enoxaparin Sodium (Lovenox -) 40 mg SQ DAILY [facility] Ertapenem 1 gm/ Sodium (Chloride) 50 mls @ 50 mls/hr IVPB DAILY [facility] PRN Reason: Protocol Last Admin: 10/22/16 10:49 Dose: 50 mls/hr Midodrine (Proamatine -) 2.5 mg PO TID-MID [facility] Last Admin: 10/22/16 18:13 Dose: 2.5 mg Multivitamins/Minerals/Vitamin C (Tab-A-Vit -) 1 tab PO DAILY [facility] Last Admin: 10/22/16 10:48 Dose: 1 tab Nystatin (Mycostatin Cream -) 1 applic TP BID [facility] Last Admin: 10/22/16 22:20 Dose: 1 applic Sodium Chloride (Normal Saline -) 1,000 ml IV Q20M PRN PRN Reason: MAP<65mm Hg OR SBP <90 Zinc Sulfate (Orazinc -) 220 mg PO DAILY [facility] Last Admin: 10/22/16 10:46 Dose: 220 mg Constitutional: awake, alert, NAD Eyes: Yes: WNL HENT: Yes: WNL Neck: Yes: WNL Cardiovascular: Yes: Irregular Respiratory: Yes: On Nasal O2 Gastrointestinal: Yes: WNL Renal/: Yes: Other Breast(s): Yes: Other Musculoskeletal: Yes: Back Pain, Muscle Weakness, chronic Extremities: Yes: contracted LE bilateraly, trace LE dependent edema, some reddening c/f stage I on bilateral heels Edema: trace LE Peripheral Pulses WNL: Yes Integumentary: Yes: Pressure Ulcer sacrum, STAGE IV with escar Wound/Incision: Yes: STAGE 4 SACRAL NECROTIC ULCER Neurological: Yes: Pre-Existing Deficit, Weakness ...Motor Strength: LLE, RLE Psychiatric: agitated Laboratory Results - last 24 hr 10/22/16 10/23/16 10:18 06:30 WBC 9.9 10.0 RBC 3.26 L 3.41 L Hgb 9.7 L 10.4 L Hct 29.9 L 31.2 L MCV 91.9 91.3 MCH 29.8 30.6 MCHC 32.5 33.5 RDW 16.1 H 16.2 H Plt Count 346 355 MPV 6.9 L 6.6 L Neutrophils % 82.7 77.8 Lymphocytes % 8.5 11.6 D Monocytes % 5.1 6.2 Eosinophils % 3.2 3.5 Basophils % 0.5 0.9 IMP: Resolved Septic Shock due to an infected sacral decubitus ulcer Hypotension Infected and tunneled wound booked Wheelchair bound PLAN: S/P debridement Wound care per surgery ABX per ID VTE prophylaxis Dr Conde
[2016-10-23] MEDS: BACLOFEN 10 MG TABLET (FP) PO SCH ×2 (11:08→21:45)
[2016-10-23] MEDS: CITALOPRAM HYDROBROMIDE 10 MG TABLET (FP) PO SCH (11:09)
[2016-10-23] MEDS: ZINC SULFATE 220 MG CAPSULE (FP) PO SCH (11:09)
[2016-10-23] MEDS: AMINO ACIDS/PROTEIN HYDROLYS 30 ML LIQUID.PKT PO SCH ×2 (11:09→18:39)
[2016-10-23] MEDS: ENOXAPARIN NA (PORCINE) 40 MG/0.4 ML DISP.SYRIN SQ SCH (11:09)
[2016-10-23] MEDS: MULTIVITAMINS (DAILY MVI) TABLET (FP) PO SCH (11:10)
[2016-10-23] MEDS: MIDODRINE HCL 2.5 MG TABLET PO SCH ×3 (11:25→18:38)
--- NOTE | 2016-10-23 14:20 | PN ---
Progress Note (short form) - Note Progress Note: Vascular surgery Pt seen and examined. Dressing changed. Will need further debridement in am. NPO past midnight Luis Garcia DO
[2016-10-23] MEDS: ACETAMINOPHEN 325 MG TABLET (FP) PO PRN ×2 (14:35→21:48)
[2016-10-23] MEDS: ERTAPENEM SODIUM 1 GM in SODIUM CHLORIDE 50 ML IVPB SCH (16:01)
[2016-10-23] MEDS: NYSTATIN 100,000 UNIT/GM TOPICAL CREAM 15 GM TUBE TP SCH ×2 (16:02→22:13)
--- NOTE | 2016-10-23 17:14 | PN ---
Progress Note, Physician Chief Complaint: AWAKE ALERT AGITATED - Current Medication List Current Medications: Active Medications Acetaminophen (Tylenol -) 650 mg PO Q6H PRN PRN Reason: FEVER OR PAIN Last Admin: 10/23/16 14:35 Dose: 650 mg Albuterol/Ipratropium (Duoneb -) 1 amp NEB Q6H PRN PRN Reason: SHORTNESS OF BREATH Alprazolam (Xanax -) 0.25 mg PO Q6H PRN Amino Acids (Prosource No Carb Liquid Pkt) 30 ml PO BID@0800,1730 [facility] Last Admin: 10/23/16 11:09 Dose: 30 ml Baclofen (Lioresal -) 10 mg PO BID [facility] Last Admin: 10/23/16 11:08 Dose: 10 mg Citalopram Hydrobromide (Celexa -) 10 mg PO DAILY [facility] Last Admin: 10/23/16 11:09 Dose: Not Given Enoxaparin Sodium (Lovenox -) 40 mg SQ DAILY [facility] Last Admin: 10/23/16 11:09 Dose: 40 mg Ertapenem 1 gm/ Sodium (Chloride) 50 mls @ 50 mls/hr IVPB DAILY [facility] PRN Reason: Protocol Last Admin: 10/23/16 16:01 Dose: 50 mls/hr Midodrine (Proamatine -) 2.5 mg PO TID-MID [facility] Last Admin: 10/23/16 14:26 Dose: 2.5 mg Multivitamins/Minerals/Vitamin C (Tab-A-Vit -) 1 tab PO DAILY [facility] Last Admin: 10/23/16 11:10 Dose: 1 tab Nystatin (Mycostatin Cream -) 1 applic TP BID [facility] Last Admin: 10/23/16 16:02 Dose: 1 applic Sodium Chloride (Normal Saline -) 1,000 ml IV Q20M PRN PRN Reason: MAP<65mm Hg OR SBP <90 Zinc Sulfate (Orazinc -) 220 mg PO DAILY [facility] Last Admin: 10/23/16 11:09 Dose: 220 mg - Objective Vital Signs: Vital Signs Temperature 98.0 F 10/23/16 15:11 Pulse Rate 103 H 10/23/16 15:11 Respiratory Rate 18 10/23/16 15:11 Blood Pressure 84/53 10/23/16 15:11 O2 Sat by Pulse Oximetry (%) 93 L 10/21/16 11:31 Constitutional: Yes: Mild Distress Eyes: Yes: WNL HENT: Yes: WNL Neck: Yes: WNL Cardiovascular: Yes: Pulse Irregular Respiratory: Yes: WNL Gastrointestinal: Yes: WNL Genitourinary: Yes: Incontinence Musculoskeletal: Yes: Muscle Weakness Edema: No Peripheral Pulses WNL: Yes Integumentary: Yes: Pressure Ulcer Wound/Incision: Yes: Dressing Dry and Intact (STAGE 4 SACRAL ULCER) Neurological: Yes: Pre-Existing Deficit ...Motor Strength: LLE, RLE Psychiatric: Yes: Agitated Labs: CBC, BMP 10/23/16 06:30 10/21/16 06:20 INR, PTT INR 1.37 (0.82-1.09) H 10/12/16 11:59 Problem List - Problems (1) Infected decubitus ulcer Code(s): L89.90 - PRESSURE ULCER OF UNSPECIFIED SITE, UNSPECIFIED STAGE L08.9 - LOCAL INFECTION OF THE SKIN AND SUBCUTANEOUS TISSUE, UNSP (2) Metastatic breast cancer Code(s): C50.919 - MALIGNANT NEOPLASM OF UNSP SITE OF UNSPECIFIED FEMALE BREAST (3) Sepsis Code(s): A41.9 - SEPSIS, UNSPECIFIED ORGANISM (4) Sepsis associated hypotension Code(s): A41.9 - SEPSIS, UNSPECIFIED ORGANISM (5) Atrial fibrillation Code(s): I48.91 - UNSPECIFIED ATRIAL FIBRILLATION Qualifiers: Atrial fibrillation type: paroxysmal Qualified Code(s): I48.0 - Paroxysmal atrial fibrillation (6) COPD (chronic obstructive pulmonary disease) Code(s): J44.9 - CHRONIC OBSTRUCTIVE PULMONARY DISEASE, UNSPECIFIED (7) Dyspnea and respiratory abnormalities Code(s): R06.00 - DYSPNEA, UNSPECIFIED R06.89 - OTHER ABNORMALITIES OF BREATHING (8) Quadriplegia Code(s): G82.50 - QUADRIPLEGIA, UNSPECIFIED Assessment/Plan CHECK INR NOW ULCER DEBRIDEMENT TOMORROW WITH DR SAM GARCIA CONT
[2016-10-23 18:36] LABS: INR 1.23 (0.82-1.09); PROTHROMBIN TIME (PATIENT) 13.6 SEC (9.98-11.88)
[2016-10-23 19:09] LABS: ANION GAP 8 (8-16); CALCIUM 8.8 mg/dL (8.5-10.1); CO2 33 mmol/L (21-32); CREATININE 0.3 mg/dL (0.55-1.02); GLUCOSE,RANDOM 117 mg/dL (74-106)
[2016-10-24] MEDS: ACETAMINOPHEN 325 MG TABLET (FP) PO PRN ×2 (06:22→21:59)
[2016-10-24] MEDS: BACLOFEN 10 MG TABLET (FP) PO SCH ×2 (10:00→21:59)
[2016-10-24] MEDS: ZINC SULFATE 220 MG CAPSULE (FP) PO SCH (10:00)
[2016-10-24] MEDS: AMINO ACIDS/PROTEIN HYDROLYS 30 ML LIQUID.PKT PO SCH ×2 (10:07→17:44)
[2016-10-24] MEDS: ENOXAPARIN NA (PORCINE) 40 MG/0.4 ML DISP.SYRIN SQ SCH (10:08)
[2016-10-24] MEDS: CITALOPRAM HYDROBROMIDE 10 MG TABLET (FP) PO SCH (10:08)
[2016-10-24] MEDS: ERTAPENEM SODIUM 1 GM in SODIUM CHLORIDE 50 ML IVPB SCH (10:10)
--- NOTE | 2016-10-24 10:33 | PN ---
Progress Note (short form) - Note Progress Note: Awake and alert. No acute events overnight. Denies CP or SOB. For OR today. Intake & Output 10/21/16 10/22/16 10/23/16 10/24/16 23:59 23:59 23:59 23:59 Intake Total 920 350 950 Balance 920 350 950 Weight 110 lb 8 oz 108 lb 2 oz 104 lb 6 oz 107 lb 8 oz Last Vital Signs Temp Pulse Resp BP Pulse Ox 98 F 80 20 104/54 93 L 10/24/16 10:05 10/24/16 10:05 10/24/16 10:05 10/24/16 10:05 10/21/16 11:31 Active Medications Acetaminophen (Tylenol -) 650 mg PO Q6H PRN PRN Reason: FEVER OR PAIN Last Admin: 10/24/16 06:22 Dose: 650 mg Albuterol/Ipratropium (Duoneb -) 1 amp NEB Q6H PRN PRN Reason: SHORTNESS OF BREATH Alprazolam (Xanax -) 0.25 mg PO Q6H PRN Amino Acids (Prosource No Carb Liquid Pkt) 30 ml PO BID@0800,1730 [facility] Last Admin: 10/24/16 10:07 Dose: Not Given Baclofen (Lioresal -) 10 mg PO BID [facility] Last Admin: 10/23/16 21:45 Dose: Not Given Citalopram Hydrobromide (Celexa -) 10 mg PO DAILY [facility] Last Admin: 10/24/16 10:08 Dose: Not Given Enoxaparin Sodium (Lovenox -) 40 mg SQ DAILY [facility] Last Admin: 10/24/16 10:08 Dose: Not Given Ertapenem 1 gm/ Sodium (Chloride) 50 mls @ 50 mls/hr IVPB DAILY [facility] PRN Reason: Protocol Last Admin: 10/24/16 10:10 Dose: 50 mls/hr Midodrine (Proamatine -) 2.5 mg PO TID-MID [facility] Last Admin: 10/23/16 18:38 Dose: 2.5 mg Multivitamins/Minerals/Vitamin C (Tab-A-Vit -) 1 tab PO DAILY [facility] Last Admin: 10/23/16 11:10 Dose: 1 tab Nystatin (Mycostatin Cream -) 1 applic TP BID [facility] Last Admin: 10/23/16 22:13 Dose: 1 applic Sodium Chloride (Normal Saline -) 1,000 ml IV Q20M PRN PRN Reason: MAP<65mm Hg OR SBP <90 Zinc Sulfate (Orazinc -) 220 mg PO DAILY [facility] Last Admin: 10/23/16 11:09 Dose: 220 mg Constitutional: awake, alert, NAD Eyes: Yes: WNL HENT: Yes: WNL Neck: Yes: WNL Cardiovascular: Yes: Irregular Respiratory: Yes: On Nasal O2 Gastrointestinal: Yes: WNL Renal/: Yes: Other Breast(s): Yes: Other Musculoskeletal: Yes: Back Pain, Muscle Weakness, chronic Extremities: Yes: contracted LE bilateraly, trace LE dependent edema, some reddening c/f stage I on bilateral heels Edema: trace LE Peripheral Pulses WNL: Yes Integumentary: Yes: Pressure Ulcer sacrum, STAGE IV with escar Wound/Incision: Yes: STAGE 4 SACRAL NECROTIC ULCER Neurological: Yes: Pre-Existing Deficit, Weakness ...Motor Strength: LLE, RLE Psychiatric: agitated Laboratory Results - last 24 hr 10/23/16 10/23/16 15:30 15:30 INR 1.23 H Sodium 138 Potassium 4.3 Chloride 97 L Carbon Dioxide 33 H Anion Gap 8 BUN 18 D Creatinine 0.3 L D Random Glucose 117 H D Calcium 8.8 IMP: Resolved Septic Shock due to an infected sacral decubitus ulcer Hypotension Infected and tunneled wound booked Wheelchair bound PLAN: For OR for further debridement ABX per ID VTE prophylaxis O2 as needed Dr Conde
[2016-10-24] MEDS ORDERED: LIDOCAINE HCL 1%, 10 MG/ML (20ML VIAL) ONE (15:00)
--- NOTE | 2016-10-24 15:19 | OP ---
Operative Note - Note: Operative Date: 10/24/16 Pre-Operative Diagnosis: sacral ulcer Operation: excisional debridement sacral ulcer -- skin, subcutaneous tissue Post-Operative Diagnosis: Same as Pre-op Surgeon: Luis Garcia Anesthesia: Local, Fractional Estimated Blood Loss (mls): 20 Operative Report Dictated: Yes
[2016-10-24] MEDS: MIDODRINE HCL 2.5 MG TABLET PO SCH ×2 (16:03→17:44)
[2016-10-24] MEDS ORDERED: ALPRAZolam 0.25 MG TABLET PO PRN (16:05)
[2016-10-24] MEDS ORDERED: SODIUM CHLORIDE 0.9% 1000 ML INFUS.BAG IV PRN (16:05)
[2016-10-24] MEDS ORDERED: ALBUTEROL SO4 2.5/IPRATROPIUM 0.5 INH SOL 3 ML VIAL.NEB. NEB PRN (16:05)
--- NOTE | 2016-10-24 16:39 | PN ---
Progress Note, Physician Chief Complaint: TRANSFERRED TO O.. FOR SURGICAL DEBRIDEMENT OF SACRAL ULCER - Current Medication List Current Medications: Active Medications Acetaminophen (Tylenol -) 650 mg PO Q6H PRN PRN Reason: FEVER OR PAIN Albuterol/Ipratropium (Duoneb -) 1 amp NEB Q6H PRN PRN Reason: SHORTNESS OF BREATH Alprazolam (Xanax -) 0.25 mg PO Q6H PRN PRN Reason: ANXIETY Amino Acids (Prosource No Carb Liquid Pkt) 30 ml PO BID@0800,1730 [facility] Baclofen (Lioresal -) 10 mg PO BID [facility] Citalopram Hydrobromide (Celexa -) 10 mg PO DAILY [facility] Enoxaparin Sodium (Lovenox -) 40 mg SQ DAILY [facility] Ertapenem 1 gm/ Sodium (Chloride) 50 mls @ 50 mls/hr IVPB DAILY [facility] PRN Reason: Protocol Midodrine (Proamatine -) 2.5 mg PO TID-MID [facility] Multivitamins/Minerals/Vitamin C (Tab-A-Vit -) 1 tab PO DAILY [facility] Nystatin (Mycostatin Cream -) 1 applic TP BID [facility] Sodium Chloride (Normal Saline -) 1,000 ml IV Q20M PRN PRN Reason: MAP<65mm Hg OR SBP <90 Zinc Sulfate (Orazinc -) 220 mg PO DAILY [facility] - Objective Vital Signs: Vital Signs Temperature 98.1 F 10/24/16 14:17 Pulse Rate 79 10/24/16 14:17 Respiratory Rate 20 10/24/16 10:05 Blood Pressure 81/53 10/24/16 14:17 O2 Sat by Pulse Oximetry (%) 97 10/24/16 10:25 Constitutional: Yes: Mild Distress Eyes: Yes: WNL HENT: Yes: WNL Neck: Yes: WNL Cardiovascular: Yes: Pulse Irregular Respiratory: Yes: Diminished, Poor Air Entry, SOB, SOB on Exertion Gastrointestinal: Yes: WNL Genitourinary: Yes: Incontinence Musculoskeletal: Yes: Muscle Weakness Extremities: Yes: WNL Edema: No Peripheral Pulses WNL: Yes Integumentary: Yes: Pressure Ulcer Wound/Incision: Yes: Dressing Dry and Intact Neurological: Yes: Pre-Existing Deficit, Weakness ...Motor Strength: LLE, RLE Psychiatric: Yes: Agitated Labs: CBC, BMP 10/23/16 06:30 10/23/16 15:30 INR, PTT INR 1.23 (0.82-1.09) H 10/23/16 15:30 Problem List - Problems (1) Infected decubitus ulcer Code(s): L89.90 - PRESSURE ULCER OF UNSPECIFIED SITE, UNSPECIFIED STAGE L08.9 - LOCAL INFECTION OF THE SKIN AND SUBCUTANEOUS TISSUE, UNSP (2) Metastatic breast cancer Code(s): C50.919 - MALIGNANT NEOPLASM OF UNSP SITE OF UNSPECIFIED FEMALE BREAST (3) Sepsis Code(s): A41.9 - SEPSIS, UNSPECIFIED ORGANISM (4) Sepsis associated hypotension Code(s): A41.9 - SEPSIS, UNSPECIFIED ORGANISM (5) Atrial fibrillation Code(s): I48.91 - UNSPECIFIED ATRIAL FIBRILLATION Qualifiers: Atrial fibrillation type: paroxysmal Qualified Code(s): I48.0 - Paroxysmal atrial fibrillation (6) COPD (chronic obstructive pulmonary disease) Code(s): J44.9 - CHRONIC OBSTRUCTIVE PULMONARY DISEASE, UNSPECIFIED (7) Dyspnea and respiratory abnormalities Code(s): R06.00 - DYSPNEA, UNSPECIFIED R06.89 - OTHER ABNORMALITIES OF BREATHING (8) Quadriplegia Code(s): G82.50 - QUADRIPLEGIA, UNSPECIFIED Assessment/Plan WOUND CARE POST OP INCREASE NUTRITION TO AID IN WOUND HEALING SNF PLACEMENT ID F/U FOR ABX
[2016-10-24] MEDS ORDERED: PT OWN MED DRAWER 7, Y5N ONE (17:41)
[2016-10-24] MEDS: NYSTATIN 100,000 UNIT/GM TOPICAL CREAM 15 GM TUBE TP SCH (21:56)
[2016-10-25] MEDS: ACETAMINOPHEN 325 MG TABLET (FP) PO PRN (05:55)
[2016-10-25] MEDS: AMINO ACIDS/PROTEIN HYDROLYS 30 ML LIQUID.PKT PO SCH (08:37)
[2016-10-25] MEDS ORDERED: MAGNESIUM OXIDE 400 MG TABLET (FP) PO SCH (10:00)
[2016-10-25] MEDS ORDERED: LACTOBACILLUS ACIDOPHILUS 1 EACH TAB (FP) PO SCH (10:00)
[2016-10-25] MEDS ORDERED: PT OWN MED DRAWER 7, Y5N ONE ×2 (10:00→13:06)
[2016-10-25] MEDS ORDERED: CITALOPRAM HYDROBROMIDE 10 MG TABLET (FP) PO SCH (10:00)
[2016-10-25] MEDS ORDERED: ERTAPENEM SODIUM 1 GM in SODIUM CHLORIDE 50 ML IVPB SCH (10:00)
[2016-10-25] MEDS ORDERED: ZINC SULFATE 220 MG CAPSULE (FP) PO SCH (10:00)
[2016-10-25] MEDS ORDERED: ENOXAPARIN NA (PORCINE) 40 MG/0.4 ML DISP.SYRIN SQ SCH (10:00)
[2016-10-25] MEDS ORDERED: MULTIVITAMINS (DAILY MVI) TABLET (FP) PO SCH (10:00)
[2016-10-25] MEDS ORDERED: ASCORBIC ACID 250 MG TABLET (FP) PO SCH (10:00)
[2016-10-25] MEDS: MIDODRINE HCL 2.5 MG TABLET PO SCH ×2 (10:14→13:09)
[2016-10-25] MEDS: NYSTATIN 100,000 UNIT/GM TOPICAL CREAM 15 GM TUBE TP SCH (10:15)
[2016-10-25] MEDS: BACLOFEN 10 MG TABLET (FP) PO SCH (10:15)
--- NOTE | 2016-10-25 11:20 | DS ---
Physical Examination Vital Signs: Vital Signs Temperature 98.4 F 10/25/16 08:00 Pulse Rate 93 H 10/25/16 08:00 Respiratory Rate 18 10/25/16 08:00 Blood Pressure 95/51 10/25/16 08:00 O2 Sat by Pulse Oximetry (%) 97 10/24/16 10:25 Constitutional: Yes: No Distress Eyes: Yes: WNL HENT: Yes: WNL Neck: Yes: WNL Cardiovascular: Yes: Pulse Irregular Respiratory: Yes: WNL Gastrointestinal: Yes: WNL Musculoskeletal: Yes: Muscle Weakness Extremities: Yes: Other Edema: No Integumentary: Yes: Pressure Ulcer, Other Wound/Incision: Yes: Dressing Dry and Intact Neurological: Yes: Weakness, Other ...Motor Strength: LLE, RLE Psychiatric: Yes: Other Labs: CBC, BMP 10/23/16 06:30 10/23/16 15:30 Discharge Summary Reason For Visit: SEPSIS Current Active Problems DVT (deep venous thrombosis) (Acute) Dyspnea and respiratory abnormalities (Acute) Infected decubitus ulcer (Acute) Metastatic breast cancer (Acute) Quadriplegia (Acute) Sepsis (Acute) Sepsis associated hypotension (Acute) Procedures: Principal: DEBRIDEMENT OF SACRAL ULCER Other Procedures: LABS/CX Hospital Course: ADMITTED WITH SEPSIS/HYPOTENSION/SACRAL ULCER INFECTION, IV ABX IN ICU, TRANSFERRED TO [facility] SURGERY THEN NEEDED ANOTHER SACRAL ULCER DEBRIDEMENT WITH BONE EXPOSED. PATIENT NO LONGER NEEDS ANTIBIOTICS PER DR GENAO FROM INFECTIOUS DISEASE. WILL NEED AGGRESSIVE WOUND CRE AND CLOSEMONITORING WITH INCREASE IN NUTRITION FOR WOUND HEALING ZINC/MVI/VIT C/ENSURE/PROSOURCE ALL ORDERED Condition: Fair - Instructions Diet, Activity, Other Instructions: ENSURES/PUREE DYSPHAGIA AGGRESSIVE WOUND CARE SURGERY WEEKLY EVALS PMD FOLLOW UP WITH DR BALL Referrals: Javed Ball [Primary Care Provider] - Disposition: NURSING HOME FACILITY - Home Medications Comprehensive Discharge Medication List: Ambulatory Orders Albuterol 0.083% Nebulizer Bella [Ventolin 0.083%] 1 neb NEB QID PRN 08/31/16 Amino Acids/Protein Hydrolys [Pro-Stat Sugar Free Liquid] 30 ml PO BID 08/31/16 Ascorbic Acid [Vitamin C -] 500 mg PO DAILY 08/31/16 Baclofen 10 mg PO DAILY 08/31/16 Calcium Carbonate/Vitamin D3 [Eq Calcium 500-Vit D3 400 Tab] 1 each PO BID 08/31 Citalopram Hydrobromide [Celexa -] 20 mg PO DAILY 08/31/16 Docusate Sodium [Colace -] 100 mg PO DAILY 08/31/16 Enoxaparin [Lovenox -] 40 mg SQ DAILY 08/31/16 Guaifenesin [Robitussin -] 10 ml PO Q6H PRN 08/31/16 Loperamide HCl [Imodium A-D] 2 mg PO PRN 08/31/16 Magnesium Hydroxide [Milk of Magnesia] 400 mg PO PRN 08/31/16 Na Phos,M-B/Na Phos,Di-Ba [Fleet Enema] 133 ml RC PRN 08/31/16 Nystatin/Triamcinolone Top Cr [Mycolog II -] 1 applic TP BID 08/31/16 Sennosides [Senna] 8.6 mg PO HS 08/31/16 Zinc Sulfate 220 mg PO DAILY 08/31/16 Acetaminophen [Tylenol .Regular Strength -] 650 mg PO Q4H PRN #0 tablet Arformoterol Tartrate [Brovana -] 1 amp NEB BID amp 09/20/16 Collagenase Clostridium Hist. [Santyl -] 1 applic TP DAILY tube 09/20/16 Polyethylene Glycol 3350 [Miralax 119 gm Btl -] 17 gm PO DAILY bottle 09/20/16 Acetaminophen [Tylenol .Regular Strength -] 650 mg PO Q6H PRN #0 tablet Albuterol 2.5/Ipratropium 0.5 [Duoneb -] 1 amp NEB Q6H PRN #0 amp 10/19/16 Alprazolam [Xanax] 0.25 mg PO Q6H PRN #0 tablet MDD 4 10/19/16 Amino Acids/Protein Hydrolys [Prosource No Carb Liquid Pkt] 30 ml PO BID@0800, 1730 packet 10/19/16 Baclofen [Lioresal -] 10 mg PO BID tablet 10/19/16 Citalopram Hydrobromide [Celexa -] 10 mg PO DAILY tablet 10/19/16 Enoxaparin [Lovenox -] 60 mg SQ BID@0500,1700 #60 syr 10/19/16 Ertapenem Sodium [Invanz -] 1 gm IVPB DAILY vial 10/19/16 Midodrine HCl [Proamatine -] 2.5 mg PO TID-MID tablet 10/19/16 Multivitamins [Multivit ([facility] Formulary)] 1 tab PO DAILY tab 10/19/16 Nystatin Cream [Mycostatin Cream -] 1 applic TP BID applic 10/19/16
--- NOTE | 2016-10-25 12:15 | PN ---
Progress Note (short form) - Note Progress Note: d/w Dr Garcia wound is clean, she needs to avoid placing pressure to the area can d/c antibiotics needs aggressive wound care at the [place] d/w Dr Marrero Problem List - Problems (1) Sepsis Code(s): A41.9 - SEPSIS, UNSPECIFIED ORGANISM (2) Infected decubitus ulcer Code(s): L89.90 - PRESSURE ULCER OF UNSPECIFIED SITE, UNSPECIFIED STAGE L08.9 - LOCAL INFECTION OF THE SKIN AND SUBCUTANEOUS TISSUE, UNSP (3) Metastatic breast cancer Code(s): C50.919 - MALIGNANT NEOPLASM OF UNSP SITE OF UNSPECIFIED FEMALE BREAST
--- NOTE | 2016-10-25 13:44 | OP ---
DATE OF OPERATION: 10/24/2016 PREOPERATIVE DIAGNOSIS: Stage 4 sacral ulcer, necrotic. POSTOPERATIVE DIAGNOSIS: Stage 4 sacral ulcer, necrotic. PROCEDURE: Excisional debridement sacrum skin and subcutaneous tissue. SURGEON: Luis Vargas DO ANESTHESIA: Fractional. BLOOD LOSS: 20 mL. DESCRIPTION OF PROCEDURE: The patient is a 66-year-old female who has a stage 4 sacral ulcer. She has necrotic tissue on the anterior rim of her ulcer. It was decided that she would need debridement. The patient was consented for the procedure understanding all risks, benefits, and alternatives and was then brought into the operating room. She was then positioned left side down, and the area of the sacrum was prepped and draped in a sterile surgical manner. We then went ahead and injected 10 mL lidocaine 1% in the area. We then went ahead and used Metzenbaum scissors then sharply debrided away all of the necrotic from the skin and subcutaneous tissue. The wound was then well irrigated. The area was then packed with wet 4x4s, 4x4s, and ABD pads. The patient was then transferred to the PACU. The patient tolerated the procedure with no complications. TOTAL BLOOD LOSS: 20 mL. LUIS VARGAS DO [employer]/[id number]
[2016-10-25 16:34] VITALS: BP 103/46; PULSE 80; TEMP 98.2
--- NOTE | 2016-10-26 16:02 | PATH ---
Surgical Pathology Report Patient Name: MEENU WARD Med. Rec. #: [id number] /Age/Gender: 1950 (Age: 66) / F Account: [id number] Location: [address] [place] [address]/[facility] Taken: 10/24/2016 Received: 10/25/2016 Reported: 10/26/2016 Physicians: Luis Garcia Specimen(s) Received SACRAL DEBRIDED TISSUE Clinical History Sacral ulcer Final Diagnosis SOFT TISSUE, SACRUM, DEBRIDEMENT: ACUTE NECROTIZING INFLAMMATION AND GANGRENOUS NECROSIS. Electronically Signed Mike Oosrio M.D. Gross Description Received in formalin, labeled "sacral debrided tissue" multiple fragments of zimmer-grover necrotic tissue and 5.5 x 3.0 x 2.0 cm in aggregate size. Adult Basic Education Teacher sections submitted one cassette. AF/10/25/2016 final/10/25/2016
== END 2016-10-25 16:55 | DRG 853 ==
LOC: JER 12:03 → JERBED 13:03 → JICU 18:35 → J6S 10-16 16:09
PROVIDERS: ADMIT Family Medicine; ATTEND Family Medicine
PROC: 0KBN0ZZ Excision of Right Hip Muscle, Open Approach (ICD-10-PCS; 2016-10-16)
PROC: 0KBP0ZZ Excision of Left Hip Muscle, Open Approach (ICD-10-PCS; principal; 2016-10-16 10:00)
PROC: 0JB70ZZ Excision of Back Subcutaneous Tissue and Fascia, Open Approach (ICD-10-PCS; 2016-10-24)
DX: A41.89 Other specified sepsis (principal); R65.21 Severe sepsis with septic shock; L89.154 Pressure ulcer of sacral region, stage 4; R53.2 Functional quadriplegia; E87.1 Hypo-osmolality and hyponatremia; G82.20 Paraplegia, unspecified; C79.51 Secondary malignant neoplasm of bone; G95.29 Other cord compression; I82.499 Acute embolism and thrombosis of other specified deep vein of unspecified lower extremity; J44.9 Chronic obstructive pulmonary disease, unspecified; G62.9 Polyneuropathy, unspecified; I48.91 Unspecified atrial fibrillation; L08.9 Local infection of the skin and subcutaneous tissue, unspecified; D72.828 Other elevated white blood cell count; H91.8X9 Other specified hearing loss, unspecified ear; C50.919 Malignant neoplasm of unspecified site of unspecified female breast; F41.8 Other specified anxiety disorders; I95.89 Other hypotension; D64.9 Anemia, unspecified; E87.6 Hypokalemia; I48.0 Paroxysmal atrial fibrillation; R06.89 Other abnormalities of breathing; Z74.01 Bed confinement status; Z87.891 Personal history of nicotine dependence; Z99.3 Dependence on wheelchair
CPT/HCPCS: 36415; 36600; 71010-TC; 80048; 80053; 82533; 82550; 82728; 82803; 83540; 83550; 83605; 83735; 84100; 84443; 84484; 85025; 85027; 85379; 85610; 85730; 86850; 86900; 86901; 87040; 87070; 87076; 87186; 87205; 88304-TC; 93005; 93010; 94640; 97161-GP; 99285-25; J0475

== ENCOUNTER 2016-12-04 15:27 | Inpatient (IN) | payer OTHER ==
[2016-12-04 16:07] VITALS: BMI 21.7
[2016-12-04] MEDS ORDERED: MEROPENEM 2 GM in DEXTROSE 5%-WATER - 100 ML IVPB ONE (16:43)
[2016-12-04] MEDS ORDERED: SODIUM CHLORIDE 1,000 ML IV STA (16:48)
[2016-12-04] MEDS ORDERED: ACETAMINOPHEN 1000 MG/100 ML VIAL (NON FORMULARY) IVPB ONE (16:53)
--- NOTE | 2016-12-04 16:53 | PDOC ---
History of Present Illness - General History Source: Patient Exam Limitations: No Limitations - History of Present Illness Initial Comments: 12/04/16 17:05 66 y/o F with a significant past medical history of metastatic breast cancer, paraplegia, COPD, cigarette smoking, pressure ulcers secondary to immobility, sent from [facility] by ambulance to the Emergency Department with elevated HR and low BP. Patient reports that she was given medication for her low BP that did not raise it. She states that for the past week, she has had the chills and a decreased appetite. Patient was recently admitted to the hospital (10/12/16) for sepsis. Patient reports feelings of dehydration. Patient also reports she currently has 3 ulcers on her buttocks, and old healing ulcers on bilateral feet. She currently denies any pain. She denies recent fevers. PCP: Dr. 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) COPD: Yes Psychiatric Problems: Yes (ANXIETY) Other medical history: LEFT MASECTOMY - Surgical History Cardiac Surgery: Yes (AAtrial septal defect repair 1962) - Psycho/Social/Smoking Cessation Hx Anxiety: No Suicidal Ideation: No Smoking History: Former smoker Have you smoked in the past 12 months: Yes Number of Cigarettes Smoked Daily: 4 If you are a former smoker, when did you quit?: 09/19/2016 Information on smoking cessation initiated: No Hx Alcohol Use: No Drug/Substance Use Hx: No Substance Use Type: None Hx Substance Use Treatment: No <Black Vargas - Last Filed: 12/04/16 18:31> - Past Medical History Allergies/Adverse Reactions: Allergies Allergy/AdvReac Type Severity Reaction Status Date / Time epinephrine Allergy Verified 12/04/16 15:59 procaine Allergy Verified 12/04/16 15:59 sulfamethoxazole Allergy Verified 12/04/16 15:59 trimethoprim Allergy Verified 12/04/16 15:59 Home Medications: Ambulatory Orders Albuterol 0.083% Nebulizer Bella [Ventolin 0.083%] 1 neb NEB QID PRN 08/31/16 Amino Acids/Protein Hydrolys [Pro-Stat Sugar Free Liquid] 30 ml PO BID 08/31/16 Ascorbic Acid [Vitamin C -] 500 mg PO DAILY 08/31/16 Baclofen 10 mg PO DAILY 08/31/16 Calcium Carbonate/Vitamin D3 [Eq Calcium 500-Vit D3 400 Tab] 1 each PO BID 08/31 Citalopram Hydrobromide [Celexa -] 20 mg PO DAILY 08/31/16 Docusate Sodium [Colace -] 100 mg PO DAILY 08/31/16 Enoxaparin [Lovenox -] 40 mg SQ DAILY 08/31/16 Guaifenesin [Robitussin -] 10 ml PO Q6H PRN 08/31/16 Loperamide HCl [Imodium A-D] 2 mg PO PRN 08/31/16 Magnesium Hydroxide [Milk of Magnesia] 400 mg PO PRN 08/31/16 Na Phos,M-B/Na Phos,Di-Ba [Fleet Enema] 133 ml RC PRN 08/31/16 Nystatin/Triamcinolone Top Cr [Mycolog II -] 1 applic TP BID 08/31/16 Sennosides [Senna] 8.6 mg PO HS 08/31/16 Zinc Sulfate 220 mg PO DAILY 08/31/16 Acetaminophen [Tylenol .Regular Strength -] 650 mg PO Q4H PRN #0 tablet Arformoterol Tartrate [Brovana -] 1 amp NEB BID amp 09/20/16 Collagenase Clostridium Hist. [Santyl -] 1 applic TP DAILY tube 09/20/16 Polyethylene Glycol 3350 [Miralax 119 gm Btl -] 17 gm PO DAILY bottle 09/20/16 Acetaminophen [Tylenol .Regular Strength -] 650 mg PO Q6H PRN #0 tablet Albuterol 2.5/Ipratropium 0.5 [Duoneb -] 1 amp NEB Q6H PRN #0 amp 10/19/16 Alprazolam [Xanax] 0.25 mg PO Q6H PRN #0 tablet MDD 4 10/19/16 Amino Acids/Protein Hydrolys [Prosource No Carb Liquid Pkt] 30 ml PO BID@0800, 1730 packet 10/19/16 Baclofen [Lioresal -] 10 mg PO BID tablet 10/19/16 Citalopram Hydrobromide [Celexa -] 10 mg PO DAILY tablet 10/19/16 Enoxaparin [Lovenox -] 60 mg SQ BID@0500,1700 #60 syr 10/19/16 Midodrine HCl [Proamatine -] 2.5 mg PO TID-MID tablet 10/19/16 Multivitamins [Multivit ([facility] Formul[facility])] 1 tab PO DAILY tab 10/19/16 Nystatin Cream [Mycostatin Cream -] 1 applic TP BID applic 10/19/16 Acetaminophen [Tylenol .Regular Strength -] 650 mg PO Q6H PRN #0 tablet Albuterol 2.5/Ipratropium 0.5 [Duoneb -] 1 amp NEB Q6H PRN #0 amp 10/25/16 Alprazolam [Xanax] 0.25 mg PO Q6H PRN #0 tablet MDD 4 10/25/16 Amino Acids/Protein Hydrolys [Prosource No Carb Liquid Pkt] 30 ml PO BID@0800, 1730 packet 10/25/16 Ascorbic Acid [Vitamin C -] 250 mg PO BID tablet 10/25/16 Baclofen [Lioresal -] 10 mg PO BID tablet 10/25/16 Citalopram Hydrobromide [Celexa -] 10 mg PO DAILY tablet 10/25/16 Enoxaparin [Lovenox -] 40 mg SQ DAILY #60 syr 10/25/16 Lactobacillus Acidophilus [Bacid -] 1 tab PO DAILY tab 10/25/16 Magnesium Oxide [Mag-Ox -] 400 mg PO BID tablet 10/25/16 Midodrine HCl [Proamatine -] 2.5 mg PO TID-MID tablet 10/25/16 Multivitamins [Multivit ([facility] Formul[facility])] 1 tab PO DAILY tab 10/25/16 Nystatin Cream [Mycostatin Cream -] 1 applic TP BID applic 10/25/16 Zinc Sulfate [Orazinc -] 220 mg PO DAILY #30 tab 10/25/16 Review of Systems - Review of Systems Able to Perform ROS?: Yes Comments:: 12/04/16 17:05 GENERAL/CONSTITUTIONAL: (+) dehydrated. No fever or chills. No weakness. HEAD, EYES, EARS, NOSE AND THROAT: No change in vision. No ear pain or discharge. No sore throat. CARDIOVASCULAR: No chest pain or shortness of breath. RESPIRATORY: No cough, wheezing, or hemoptysis. GASTROINTESTINAL: No nausea, vomiting, diarrhea or constipation. GENITOURINARY: No dysuria, frequency, or change in urination. MUSCULOSKELETAL: No joint or muscle swelling or pain. No neck or back pain. SKIN: (+) ulcers on buttocks, old healing ulcers on bilateral feet NEUROLOGIC: No headache, vertigo, loss of consciousness, or change in strength/ sensation. ENDOCRINE: No increased thirst. No abnormal weight change. HEMATOLOGIC/LYMPHATIC: No anemia, easy bleeding, or history of blood clots. ALLERGIC/IMMUNOLOGIC: No hives or skin allergy. <Cheryl Garcia - Last Filed: 12/04/16 17:09> *Physical Exam - Vital Signs Last Vital Signs Temp Pulse Resp BP Pulse Ox 97.4 F L 116 H 20 97/68 99 12/04/16 15:55 12/04/16 15:55 12/04/16 15:55 12/04/16 15:55 12/04/16 15:55 <Cheryl Garcia - Last Filed: 12/04/16 17:09> - Vital Signs Last Vital Signs Temp Pulse Resp BP Pulse Ox 97.4 F L 116 H 20 97/68 99 12/04/16 15:55 12/04/16 15:55 12/04/16 15:55 12/04/16 15:55 12/04/16 15:55 <Black Vargas - Last Filed: 12/04/16 18:31> Heart Score/ECG Review #1 ECG reviewed & interpreted by me at: 16:20 12/04/16 17:06 NSR 100, nonspecific T wave abnromality, QTC 433 msec, no std/veto <Black Vargas - Last Filed: 12/04/16 18:31> ED Treatment Course - RADIOLOGY Radiograph Interpretation: 12/04/16 17:09 GENERAL: Awake, alert, and fully oriented, in no acute distress. Chronically ill appearing. HEAD: No signs of trauma EYES: PERRLA, EOMI, sclera anicteric, conjunctiva clear ENT: Auricles normal inspection, hearing grossly normal, nares patent, oropharynx clear without exudates. Moist mucosa NECK: Normal ROM, supple, no lymphadenopathy, JVD, or masses LUNGS: Breath sounds equal, clear to auscultation bilaterally. No wheezes, and no crackles HEART: Regular rate and rhythm, normal S1 and S2, no murmurs, rubs or gallops ABDOMEN: Soft, nontender, normoactive bowel sounds. No guarding, no rebound. No masses EXTREMITIES: Normal range of motion, no edema. No clubbing or cyanosis. No cords, erythema, or tenderness NEUROLOGICAL: Cranial nerves II through XII grossly intact. Normal speech. SKIN:5 x 4 cm stage IV ulcer and 13 x 12 cm stage IV ulcer on L buttock, 4 x 5 cm stage IV ulcer on R buttock. Healed bilateral ulcers on feet. Warm, Dry, normal turgor <Cheryl Garcia - Last Filed: 12/04/16 17:09> - LABORATORY CBC & Chemistry Diagram: 12/04/16 15:00 12/04/16 15:00 - RADIOLOGY Radiology Studies Ordered: Category Date Time Status CHEST X-RAY PORTABLE* [RAD] Stat Radiology 12/04/16 16:10 Ordered <Black Vargas - Last Filed: 12/04/16 18:31> Medical Decision Making - Medical Decision Making 12/04/16 16:50 A portion of this note was documented by scribe services under my direction. I have reviewed the details of the note, within reason, and agree with the documentation with the following case summary and management plan written by me. Patient treated in the ED. Nursing notes are reviewed and incorporated into the medical decision-making. Vital signs reviewed. Peripheral IV access obtained by the nurse, laboratory studies are drawn and sent, reviewed and interpreted by myself. Vital Signs Temp Pulse Resp BP Pulse Ox 97.4 F L 116 H 20 97/68 99 12/04/16 15:55 12/04/16 15:55 12/04/16 15:55 12/04/16 15:55 12/04/16 15:55 66 year old female with past medical history of a static breast cancer with bony metastases, paraplegia, stage IV decubitus presents to the emergency department for low blood pressure and tachycardia. Patient also has history of COPD but not on home oxygen. Lives approximately low 90%. The correction called and noted that the patient for the last 4 days is having generalized weakness and decreased appetite. Today, they noted that his blood pressure was 90s over 50s and was tachycardic. They were concerned for sepsis given the history of sacral ulcer infections. The patient was here September a 17 was sent to the ICU for septic shock and severe sepsis. At that time had debridements of the sacral ulcers. Was given IV antibiotics. Here in the ED, patient has no pain with a rectal temp 100.0. I suspect the patient is likely having sepsis and is dehydrated. We'll give IV fluids and empiric antibiotics. Prior micrology was reviewed and the patient was noted have sensitivities to meropenem. We'll right ankle myself meropenem. Adult sepsis protocol initiated. Potential sources of infection his urine, sacral ulcer. Patient ultimately admitted to the hospital. 12/04/16 18:28 CBC, BMP 12/04/16 15:00 12/04/16 15:00 CMP Sodium 138 mmol/L (136-145) 12/04/16 15:00 Potassium 4.2 mmol/L (3.5-5.1) 12/04/16 15:00 Chloride 98 mmol/L (98-107) 12/04/16 15:00 Carbon Dioxide 33 mmol/L (21-32) H 12/04/16 15:00 Anion Gap 7 (8-16) L 12/04/16 15:00 BUN 10 mg/dL (7-18) D 12/04/16 15:00 Creatinine 0.4 mg/dL (0.55-1.02) L D 12/04/16 15:00 Creat Clearance w eGFR > 60 (>60) 12/04/16 15:00 Random Glucose 102 mg/dL (74-106) 12/04/16 15:00 Lactic Acid 1.4 mmol/L (0.4-2.0) 12/04/16 17:00 Calcium 9.1 mg/dL (8.5-10.1) 12/04/16 15:00 Total Bilirubin 0.2 mg/dL (0.2-1.0) 12/04/16 15:00 AST 13 U/L (15-37) L 12/04/16 15:00 ALT 17 U/L (12-78) 12/04/16 15:00 Alkaline Phosphatase 149 U/L (45-117) H D 12/04/16 15:00 Creatine Kinase 21 IU/L (26-192) L 12/04/16 15:00 Troponin I < 0.02 ng/ml (0.00-0.05) 12/04/16 15:00 Total Protein 6.2 g/dl (6.4-8.2) L D 12/04/16 15:00 Albumin 1.9 g/dl (3.4-5.0) L D 12/04/16 15:00 Blood pressure is improved to 107/71. The patient reports feeling better. Case was discussed with DIVEMASTER of Dr. Marrero's service. Case admitted to med/surg admission. Case discussed in detail with admitting physician including history, physical exam and ancillary studies. Admitting physician has assumed care for the patient, will follow all pending diagnostics and will complete the evaluation and treatment. <Black Vargas - Last Filed: 12/04/16 18:31> *DC/Admit/Observation/Transfer - Attestations Scribe Attestion: 12/04/16 17:06 Documentation prepared by Cheryl Garcia, acting as medical consultant for Black Vargas MD. <Cheryl Garcia - Last Filed: 12/04/16 17:09> - Discharge Dispostion Admit: Yes <Black Vargas - Last Filed: 12/04/16 18:31> Diagnosis at time of Disposition: Hypotension Qualifiers: Hypotension type: unspecified hypotension type Qualified Code(s): I95.9 - Hypotension, unspecified Skin ulcer of sacrum Qualifiers: Non-pressure ulcer stage: with necrosis of muscle Qualified Code(s): L98.423 - Non-pressure chronic ulcer of back with necrosis of muscle - Discharge Dispostion Condition at time of disposition: Stable - Referrals Referrals: Rajesh Marrero MD [Primary Care Provider] -
[2016-12-04] MEDS ORDERED: ACETAMINOPHEN INJECTION 100 ML IVPB ONE (17:35)
[2016-12-04 17:36] LABS: BASOPHIL 0.4 % (0-2.0); EOSINOPHIL 1.4 % (0-4.5); MCH 27.8 pg (25.7-33.7); MEAN CELL VOLUME 86.7 fl (80-96); NEUTROPHILS 79.4 % (42.8-82.8); RDW 16.1 % (11.6-15.6); WHITE BLOOD COUNT 9.8 K/mm3 (4.0-10.0)
[2016-12-04] MEDS ORDERED: VANCOMYCIN 1,000 MG in DEXTROSE 5%-WATER - 250 ML IVPB ONE (17:38)
[2016-12-04] MEDS ORDERED: VANCOMYCIN 1 GRAM (PRE-DOCKED) 250 ML IVPB ONE (17:40)
[2016-12-04 17:48] LABS: INR 1.21 (0.82-1.09); PROTHROMBIN TIME (PATIENT) 13.4 SEC (9.98-11.88)
[2016-12-04 17:51] LABS: ACTIVATED PTT 29.3 SECONDS (26.9-34.4)
[2016-12-04 17:55] LABS: ALBUMIN 1.9 g/dl (3.4-5.0); ANION GAP 7 (8-16); BILIRUBIN,TOTAL 0.2 mg/dL (0.2-1.0); CALCIUM 9.1 mg/dL (8.5-10.1); CO2 33 mmol/L (21-32); CREATININE 0.4 mg/dL (0.55-1.02); GLUCOSE,RANDOM 102 mg/dL (74-106); SGOT/AST 13 U/L (15-37); SGPT/ALT 17 U/L (12-78); TOT PROT 6.2 g/dl (6.4-8.2)
[2016-12-04 17:57] LABS: ALK PHOS 149 U/L (45-117); CPK 21 IU/L (26-192); TROPONIN I < 0.02 ng/ml (0.00-0.05)
[2016-12-04 18:00] LABS: VENOUS PH 7.43 (7.32-7.42)
[2016-12-04 18:01] LABS: VENOUS BLOOD GAS HCO3 30.1 meq/L (19-25)
[2016-12-04 18:03] LABS: PLATELET COMMENT2 NO CLOTTING DETECTED; PLATELET ESTIMATE ADEQUATE (NORMAL)
[2016-12-04 18:04] LABS: PLATELET COMMENT3 UNABLE TO ENUMERATE
[2016-12-04] MEDS ORDERED: ALPRAZolam 0.25 MG TABLET PO PRN (21:05)
[2016-12-04] MEDS ORDERED: ALBUTEROL SO4 0.083% IH SOL 2.5 MG/3 ML VIAL.NEB. NEB PRN (21:05)
[2016-12-04] MEDS ORDERED: ACETAMINOPHEN 325 MG TABLET (FP) PO PRN (21:05)
[2016-12-04] MEDS ORDERED: ALBUTEROL SO4 2.5/IPRATROPIUM 0.5 INH SOL 3 ML VIAL.NEB. NEB PRN (21:05)
--- NOTE | 2016-12-04 21:13 | HP ---
Admitting History and Physical - Primary Care Physician PCP: Rajesh Marrero - Admission Chief Complaint: hypotension, tachycardia, sepsis, Decubitus ulcer stg 4 History of Present Illness: 66 y/o F with a significant past medical history of metastatic breast cancer, paraplegia, COPD, cigarette smoking, pressure ulcers secondary to immobility, sent from [facility] by ambulance to the Emergency Department with elevated HR and low BP. Patient reports that she was given medication for her low BP that did not raise it. She states that for the past week, she has had the chills and a decreased appetite. Patient was recently admitted to the hospital (10/12/16) for sepsis. Patient reports feelings of dehydration. Patient also reports she currently has 3 ulcers on her buttocks, and old healing ulcers on bilateral feet. She currently denies any pain. She denies recent fevers. PCP: Dr. Rajesh Marrero History Source: Medical Record - Past Medical History [employer] TECHNICIAN: Yes: Peripheral Neuropathy Cardiovascular: Yes: AFIB Pulmonary: Yes: COPD - Past Surgical History Past Surgical History: Yes: Cholecystectomy, Tonsillectomy - Smoking History Smoking history: Former smoker Have you smoked in the past 12 months: Yes Aproximately how many cigarettes per day: 4 If you are a former smoker, when did you quit?: 09/19/2016 - Alcohol/Substance Use Hx Alcohol Use: No Home Medications - Allergies Allergies/Adverse Reactions: Allergies Allergy/AdvReac Type Severity Reaction Status Date / Time epinephrine Allergy Verified 12/04/16 15:59 procaine Allergy Verified 12/04/16 15:59 sulfamethoxazole Allergy Verified 12/04/16 15:59 trimethoprim Allergy Verified 12/04/16 15:59 - Home Medications Home Medications: Ambulatory Orders Albuterol 0.083% Nebulizer Bella [Ventolin 0.083%] 1 neb NEB QID PRN 08/31/16 Ascorbic Acid [Vitamin C -] 500 mg PO DAILY 08/31/16 Magnesium Hydroxide [Milk of Magnesia] 400 mg PO PRN 08/31/16 Acetaminophen [Tylenol .Regular Strength -] 650 mg PO Q4H PRN #0 tablet Arformoterol Tartrate [Brovana -] 1 amp NEB BID amp 09/20/16 Alprazolam [Xanax] 0.25 mg PO Q6H PRN #0 tablet MDD 4 10/19/16 Amino Acids/Protein Hydrolys [Prosource No Carb Liquid Pkt] 30 ml PO BID@0800, 1730 packet 10/19/16 Baclofen [Lioresal -] 10 mg PO BID tablet 10/19/16 Citalopram Hydrobromide [Celexa -] 10 mg PO DAILY tablet 10/19/16 Midodrine HCl [Proamatine -] 2.5 mg PO TID-MID tablet 10/19/16 Albuterol 2.5/Ipratropium 0.5 [Duoneb -] 1 amp NEB Q6H PRN #0 amp 10/25/16 Review of Systems - Review of Systems Constitutional: reports: Fever, Lethargy, Malaise, Weakness Eyes: reports: No Symptoms HENT: reports: No Symptoms Neck: reports: No Symptoms Cardiovascular: reports: Other (tachycardia, hypotension) Respiratory: reports: No Symptoms Gastrointestinal: reports: No Symptoms Genitourinary: reports: No Symptoms Breasts: reports: No Symptoms Reported Musculoskeletal: reports: No Symptoms Integumentary: reports: Wound (decubitus stage 4) Neurological: reports: No Symptoms Endocrine: reports: No Symptoms Hematology/Lymphatic: reports: No Symptoms Psychiatric: reports: No Symptoms Physical Examination Vital Signs: Vital Signs Temperature 100.0 F H 12/04/16 16:45 Pulse Rate 83 12/04/16 20:33 Respiratory Rate 22 12/04/16 20:33 Blood Pressure 92/53 12/04/16 20:33 O2 Sat by Pulse Oximetry (%) 96 12/04/16 20:34 Constitutional: Yes: Well Nourished, No Distress, Calm Cardiovascular: Yes: Regular Rate and Rhythm Respiratory: Yes: Regular Gastrointestinal: Yes: Normal Bowel Sounds Edema: No Peripheral Pulses WNL: Yes Wound/Incision: Yes: Other (multiple pressure ulcers, mainly around coccygeal region) Neurological: Yes: Alert, Oriented Psychiatric: Yes: Alert, Oriented Problem List - Problems (1) Hypotension Code(s): I95.9 - HYPOTENSION, UNSPECIFIED Qualifiers: Hypotension type: unspecified hypotension type Qualified Code(s): I95.9 - Hypotension, unspecified (2) Infected decubitus ulcer Code(s): L89.90 - PRESSURE ULCER OF UNSPECIFIED SITE, UNSPECIFIED STAGE L08.9 - LOCAL INFECTION OF THE SKIN AND SUBCUTANEOUS TISSUE, UNSP (3) Tachycardia Code(s): R00.0 - TACHYCARDIA, UNSPECIFIED (4) Anemia Code(s): D64.9 - ANEMIA, UNSPECIFIED Assessment/Plan -cardiology consult -DVT prophylaxis -ID consult -Sepsis workup -IVF -Wound consult -multivitamin, zinc and prosource -RD consult -pain management -stool ob -labs in AM
[2016-12-04] MEDS ORDERED: MAGNESIUM HYDROX 2400MG/30ML ORAL SUSPENSION 30 ML CUP PO PRN (21:15)
[2016-12-04 21:53] LABS: BASOPHIL 0.3 % (0-2.0); EOSINOPHIL 1.9 % (0-4.5); MCH 27.7 pg (25.7-33.7); MCHC 31.8 g/dl (32.0-36.0); MEAN CELL VOLUME 87.1 fl (80-96); NEUTROPHILS 78.4 % (42.8-82.8); RDW 15.8 % (11.6-15.6); WHITE BLOOD COUNT 10.7 K/mm3 (4.0-10.0)
[2016-12-04] MEDS ORDERED: VANCOMYCIN 1,000 MG in DEXTROSE 5%-WATER - 250 ML IVPB SCH (22:00)
[2016-12-04 22:33] LABS: PLATELET ESTIMATE ADEQUATE (NORMAL)
[2016-12-04 22:34] LABS: PLATELET COMMENT2 NO CLOTTING DETECTED; PLATELET COMMENT3 UNABLE TO ENUMERATE
[2016-12-04] MEDS: BACLOFEN 10 MG TABLET (FP) PO SCH (22:36)
[2016-12-04] MEDS: ZINC SULFATE 220 MG CAPSULE (FP) PO SCH (22:36)
[2016-12-04] MEDS: HEPARIN NA (PORCINE) 5,000 UNITS/ML 1ML VIAL SQ SCH (22:39)
[2016-12-04] MEDS: SODIUM CHLORIDE 1,000 ML IV SCH (22:43)
[2016-12-05 08:37] LABS: ALBUMIN 1.5 g/dl (3.4-5.0); ANION GAP 7 (8-16); CALCIUM 8.4 mg/dL (8.5-10.1); CO2 29 mmol/L (21-32); GLUCOSE,RANDOM 73 mg/dL (74-106)
[2016-12-05 08:42] LABS: ALK PHOS 118 U/L (45-117); BILIRUBIN,TOTAL 0.4 mg/dL (0.2-1.0); CREATININE 0.2 mg/dL (0.55-1.02); SGOT/AST 13 U/L (15-37); SGPT/ALT 11 U/L (12-78); TOT PROT 5.1 g/dl (6.4-8.2)
[2016-12-05] MEDS: ASCORBIC ACID 500 MG TABLET (FP) PO SCH (09:58)
[2016-12-05] MEDS: AMINO ACIDS/PROTEIN HYDROLYS 30 ML LIQUID.PKT PO SCH ×2 (09:58→17:44)
[2016-12-05] MEDS: MULTIVITAMINS THER W-MINERALS COMBO TABLET (FP) PO SCH (09:58)
[2016-12-05] MEDS: BACLOFEN 10 MG TABLET (FP) PO SCH ×2 (09:58→21:06)
[2016-12-05] MEDS: ZINC SULFATE 220 MG CAPSULE (FP) PO SCH ×2 (09:58→21:06)
[2016-12-05] MEDS: HEPARIN NA (PORCINE) 5,000 UNITS/ML 1ML VIAL SQ SCH ×2 (09:58→21:06)
[2016-12-05] MEDS: ARFORMOTEROL TARTRATE 15 MCG/2 ML VIAL NEB SCH ×2 (09:58→11:00)
[2016-12-05] MEDS: POLYETHYLENE GLYCOL 3350 119 GM BTL PO SCH (09:59)
[2016-12-05] MEDS ORDERED: VANCOMYCIN 1,000 MG in DEXTROSE 5%-WATER - 250 ML IVPB ONE (10:00)
[2016-12-05] MEDS ORDERED: PT OWN MED DRAWER 7, Y5N ONE ×2 (10:03→20:00)
[2016-12-05] MEDS: CITALOPRAM HYDROBROMIDE 10 MG TABLET (FP) PO SCH (10:07)
[2016-12-05] MEDS: MIDODRINE HCL 2.5 MG TABLET PO SCH ×4 (10:08→17:22)
--- NOTE | 2016-12-05 10:54 | PN ---
Progress Note (short form) - Note Progress Note: ID consult dictated imp/reccd 66 year old female with metastatic breast cancer, paraplegia, decubitus ulcers recently hospitalized in September for debridement of the ulcers she is sent from the [place] yesterday with low BP and tachycardia she denies fevers always has chills constipation poor appetite received vancomycin/meropenem in ED hypotension/tachycardia- normal lactic acid ?dehydration ?sepsis- less likely would treat with ertapenem until cultures are back based on prior wound culture sensitivities sacral ulcers examined and they appear clean she will be seen by surgeon as well continue local care to wounds metastatic breast cancer with paraplegia chronic constipation Problem List - Problems (1) Hypotension Code(s): I95.9 - HYPOTENSION, UNSPECIFIED Qualifiers: Hypotension type: unspecified hypotension type Qualified Code(s): I95.9 - Hypotension, unspecified (2) Sacral ulcer Code(s): L98.429 - NON-PRESSURE CHRONIC ULCER OF BACK WITH UNSPECIFIED SEVERITY Qualifiers: Qualified Code(s): L98.423 - Non-pressure chronic ulcer of back with necrosis of muscle (3) Metastatic breast cancer Code(s): C50.919 - MALIGNANT NEOPLASM OF UNSP SITE OF UNSPECIFIED FEMALE BREAST
[2016-12-05] MEDS ORDERED: ERTAPENEM SODIUM 1 GM in SODIUM CHLORIDE 50 ML IVPB SCH (12:00)
--- NOTE | 2016-12-05 12:01 | CONS ---
DATE OF CONSULTATION: REQUESTING PHYSICIAN: Janes Mena MD HISTORY: This is a 66-year-old woman with metastatic breast cancer with bony metastases, cord compression, and paraplegia admitted with hypotension. She was admitted back in September with a necrotic sacral ulcer electively for debridement, was hypotensive, and needed fluid resuscitation and IV antibiotics and pressors. She ultimately had debridement of her sacral ulcer and had discharge to the intermediate. She is now readmitted and sent from the intermediate with hypotension. PAST MEDICAL HISTORY: Notable for peripheral neuropathy. She has a history of atrial fibrillation, COPD, metastatic breast cancer with cord compression, bony metastases, and paraplegia. She has a history of COPD, sacral ulcer secondary to immobility. She has a history as well of peripheral neuropathy, atrial fibrillation, and COPD. PAST SURGICAL HISTORY: Notable for cholecystectomy and tonsillectomy. SOCIAL HISTORY: She is a former smoker. She is currently residing at the intermediate. REVIEW OF SYSTEMS: She has chronic chills, which are unchanged. She has no nausea, vomiting, diarrhea, dysuria. She has no shortness of breath or chest pain. She reports she was sent over for her hypotension. She does report poor appetite and constipation. MEDICATIONS: At the intermediate include vitamin C, Brovana, Proamatine, which is Midodrine, Celexa, baclofen, Xanax, albuterol nebulizer, and DuoNebs. PHYSICAL EXAMINATION: General: She is a 66-year-old woman who looks older than her stated age. She is alert in no distress. She has been afebrile since admission. Vital Signs: T-max 100 overnight, current temperature 98.7, pulse 79, blood pressure 101/64, respiratory rate 18. HEENT: She is normocephalic. Her eyes are anicteric. Neck: Supple. Lungs: Clear to auscultation. Heart: Regular rate and rhythm. Abdomen: Firm, nontender. Extremities: She cannot move her legs. She has minimal pedal edema. Skin: She does permit us to look at her sacral ulcers, which she has a large, midline sacral ulcer and a right trochanteric ulcer both of which are clean. They are beefy red. There is no purulence or associated cellulitis. Chest x-ray is reported as improved from prior. Labs are notable for BUN 6, creatinine 0.2, alkaline phosphatase 118, albumin 1.5, white count 10.7 with hemoglobin 8.8. Blood cultures are pending. Her lactic acid was normal at 1.5. She was given vancomycin and Meropenem empirically in the intermediate for possible sepsis given her hypotension. In summary, this is a 66-year-old woman with: 1. Metastatic breast cancer, paraplegia, decubitus ulcers recently hospitalized in September for debridement of the ulcers sent from the intermediate with low blood pressure and tachycardia. I would question whether this hypotension was due to dehydration. Sepsis is possible but I think less likely. Would treat with ertapenem until cultures are back based on her prior wound culture sensitivities. The ulcers do appear clean. She will be seen by Surgery as well. Would continue local care to the wounds. 2. Metastatic breast cancer with paraplegia. 3. Chronic constipation. ASHLI SHAHID M.D. [id number]
[2016-12-05] MEDS: ALBUTEROL SO4 2.5/IPRATROPIUM 0.5 INH SOL 3 ML VIAL.NEB. NEB SCH ×2 (12:20→17:12)
--- NOTE | 2016-12-05 14:16 | CON.CARD ---
Consult Consult Specialty:: Cardiology Referred by:: Dr Marrero Reason for Consultation:: hypotension - History of Present Illness Chief Complaint: infected decubitus ulcer History of Present Illness: She is a 66 year old female with a PMH of COPD, smoking, metastatic breast cancer, PAF August 2016 self converted to NSR, and pressure ulcers secondary to immobility. She was sent from her facility to the ED and was noted to be hypotensive responded to antibiotics and fluids. She denied chest pain, sob, n/v /diaphoresis, palpitations, dizziness or syncope. Not ambulatory at present. Echo 09/12/16 normal EF. no significant valvular pathology. - History Source History Provided By: Patient, Medical Record - Past Medical History [employer]: Yes: Peripheral Neuropathy Cardio/Vascular: Yes: AFIB Pulmonary: Yes: COPD - Past Surgical History Past Surgical History: Yes: Cholecystectomy, Tonsillectomy - Alcohol/Substance Use Hx Alcohol Use: No - Smoking History Smoking history: Former smoker Have you smoked in the past 12 months: Yes Aproximately how many cigarettes per day: 4 If you are a former smoker, when did you quit?: 09/19/2016 - Social History Usual Living Arrangement: Retirement Home Medications - Allergies Allergies/Adverse Reactions: Allergies Allergy/AdvReac Type Severity Reaction Status Date / Time epinephrine Allergy Verified 12/04/16 15:59 procaine Allergy Verified 12/04/16 15:59 sulfamethoxazole Allergy Verified 12/04/16 15:59 trimethoprim Allergy Verified 12/04/16 15:59 - Home Medications Home Medications: Ambulatory Orders Albuterol 0.083% Nebulizer Bella [Ventolin 0.083%] 1 neb NEB QID PRN 08/31/16 Ascorbic Acid [Vitamin C -] 500 mg PO DAILY 08/31/16 Magnesium Hydroxide [Milk of Magnesia] 400 mg PO PRN 08/31/16 Acetaminophen [Tylenol .Regular Strength -] 650 mg PO Q4H PRN #0 tablet Arformoterol Tartrate [Brovana -] 1 amp NEB BID amp 09/20/16 Alprazolam [Xanax] 0.25 mg PO Q6H PRN #0 tablet MDD 4 10/19/16 Amino Acids/Protein Hydrolys [Prosource No Carb Liquid Pkt] 30 ml PO BID@0800, 1730 packet 10/19/16 Baclofen [Lioresal -] 10 mg PO BID tablet 10/19/16 Citalopram Hydrobromide [Celexa -] 10 mg PO DAILY tablet 10/19/16 Midodrine HCl [Proamatine -] 2.5 mg PO TID-MID tablet 10/19/16 Albuterol 2.5/Ipratropium 0.5 [Duoneb -] 1 amp NEB Q6H PRN #0 amp 10/25/16 Family Disease History - Family Disease History Family History: Unable to Obtain Review of Systems - Review of Systems Constitutional: reports: Chills Eyes: reports: No Symptoms HENT: reports: No Symptoms Neck: reports: No Symptoms Cardiovascular: reports: No Symptoms Gastrointestinal: reports: No Symptoms Vital Signs: Vital Signs Temperature 99.2 F 12/05/16 11:00 Pulse Rate 106 H 12/05/16 11:00 Respiratory Rate 18 12/05/16 11:00 Blood Pressure 102/64 12/05/16 11:00 O2 Sat by Pulse Oximetry (%) 95 12/04/16 22:00 Constitutional: Yes: No Distress Eyes: Yes: Conjunctiva Clear, EOM Intact HENT: Yes: Atraumatic, Normocephalic Neck: Yes: Supple, Trachea Midline Respiratory: Yes: Regular, CTA Bilaterally Gastrointestinal: Yes: Normal Bowel Sounds, Soft Cardiovascular: Yes: Regular Rate and Rhythm JVD: No Carotid Bruit: No PMI: Non-Displaced Heart Sounds: Yes: S1, S2 Edema: No Peripheral Pulses WNL: Yes - Other Data Labs, Other Data: CBC, BMP 12/04/16 21:40 12/05/16 06:00 INR, PTT INR 1.21 (0.82-1.09) H 12/04/16 15:00 pending Echo: Report Reviewed (normal ef 09/16) Problem List - Problems (1) Hypotension Assessment/Plan: She has a history of hypotension treated with midodrine in the past. Most likely related to dehydration, intravascular volume depletion. No evidence of acute PA or CHF. No structural heart disease on recent last echo. responded to IVF and abx. Possibly there is a component of sepsis. Can increase midodrine to 5 mg if needed but her blood pressure seems more stable at present. Please call as needed. Code(s): I95.9 - HYPOTENSION, UNSPECIFIED Qualifiers: Hypotension type: unspecified hypotension type Qualified Code(s): I95.9 - Hypotension, unspecified
--- NOTE | 2016-12-05 14:39 | PN ---
Progress Note, Physician Chief Complaint: AWAKE ALERT CHART AND RECORDS REVIEWED - Current Medication List Current Medications: Active Medications Acetaminophen (Tylenol -) 650 mg PO Q4H PRN PRN Reason: FEVER OR PAIN Albuterol Sulfate (Ventolin 0.083% Nebulizer Soln -) 1 amp NEB QID PRN PRN Reason: SHORT OF BREATH/WHEEZING Albuterol/Ipratropium (Duoneb -) 1 amp NEB QIDR [facility] Alprazolam (Xanax -) 0.25 mg PO Q6H PRN PRN Reason: ANXIETY Amino Acids (Prosource No Carb Liquid Pkt) 30 ml PO BID@0800,1730 [facility] Last Admin: 12/05/16 09:58 Dose: 30 ml Arformoterol Tartrate (Brovana (Restricted To Pulmonology/Resp) -) 1 amp NEB BID [facility] Last Admin: 12/05/16 09:58 Dose: Not Given Ascorbic Acid (Vitamin C -) 500 mg PO DAILY [facility] Last Admin: 12/05/16 09:58 Dose: 500 mg Baclofen (Lioresal -) 10 mg PO BID [facility] Last Admin: 12/05/16 09:58 Dose: 10 mg Citalopram Hydrobromide (Celexa -) 10 mg PO DAILY [facility] Last Admin: 12/05/16 10:07 Dose: 10 mg Heparin Sodium (Porcine) (Heparin -) 5,000 unit SQ BID [facility] Last Admin: 12/05/16 09:58 Dose: 5,000 unit Sodium Chloride (Normal Saline -) 1,000 mls @ 75 mls/hr IV ASDIR [facility] Last Admin: 12/04/16 22:43 Dose: 75 mls/hr Ertapenem 1 gm/ Sodium (Chloride) 50 mls @ 50 mls/hr IVPB DAILY [facility] PRN Reason: Protocol Magnesium Hydroxide (Milk Of Magnesia -) 30 ml PO DAILY PRN Midodrine (Proamatine -) 2.5 mg PO TID-MID [facility] Last Admin: 12/05/16 10:08 Dose: 2.5 mg Multivitamins/Minerals (Theragran-M) 1 each PO DAILY [facility] Last Admin: 12/05/16 09:58 Dose: 1 each Polyethylene Glycol (Miralax (For Daily Use) -) 17 gm PO DAILY [facility] Last Admin: 12/05/16 09:59 Dose: 17 gm Zinc Sulfate (Orazinc -) 220 mg PO BID [facility] Last Admin: 12/05/16 09:58 Dose: 220 mg - Objective Vital Signs: Vital Signs Temperature 99.2 F 12/05/16 11:00 Pulse Rate 106 H 12/05/16 11:00 Respiratory Rate 18 12/05/16 11:00 Blood Pressure 102/64 12/05/16 11:00 O2 Sat by Pulse Oximetry (%) 95 12/04/16 22:00 Constitutional: Yes: No Distress Eyes: Yes: WNL HENT: Yes: WNL Neck: Yes: WNL Cardiovascular: Yes: WNL Respiratory: Yes: WNL Gastrointestinal: Yes: WNL Genitourinary: Yes: Incontinence Musculoskeletal: Yes: Muscle Weakness Extremities: Yes: WNL Edema: No Peripheral Pulses WNL: Yes Integumentary: Yes: Pressure Ulcer Wound/Incision: Yes: Dressing Dry and Intact (MULTIPLE SACRAL AND BUTTOCK ULCERS CLEAN NO DISCHARGE) Neurological: Yes: Pre-Existing Deficit, Unsteady Gait, Weakness ...Motor Strength: LLE, RLE Psychiatric: Yes: Other Labs: CBC, BMP 12/04/16 21:40 12/05/16 06:00 INR, PTT INR 1.21 (0.82-1.09) H 12/04/16 15:00 Problem List - Problems (1) Anemia Code(s): D64.9 - ANEMIA, UNSPECIFIED Qualifiers: Other causes of anemia: chronic disease, neoplastic (2) Hypotension Code(s): I95.9 - HYPOTENSION, UNSPECIFIED Qualifiers: Hypotension type: unspecified hypotension type Qualified Code(s): I95.9 - Hypotension, unspecified (3) Sacral ulcer Code(s): L98.429 - NON-PRESSURE CHRONIC ULCER OF BACK WITH UNSPECIFIED SEVERITY Qualifiers: Non-pressure ulcer stage: unspecified non-pressure ulcer stage Qualified Code(s): L98.429 - Non-pressure chronic ulcer of back with unspecified severity (4) Tachycardia Code(s): R00.0 - TACHYCARDIA, UNSPECIFIED (5) Breast CA Code(s): C50.919 - MALIGNANT NEOPLASM OF UNSP SITE OF UNSPECIFIED FEMALE BREAST Qualifiers: Estrogen receptor status: unspecified Patient sex: female Laterality: unspecified laterality (6) COPD (chronic obstructive pulmonary disease) Code(s): J44.9 - CHRONIC OBSTRUCTIVE PULMONARY DISEASE, UNSPECIFIED Qualifiers : COPD type: unspecified COPD Qualified Code(s): J44.9 - Chronic obstructive pulmonary disease, unspecified (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
--- NOTE | 2016-12-05 15:55 | PN ---
Progress Note (short form) - Note Progress Note: Vascular Surgery: Asked to evaluate the patient for a sacral ulcer. The patient is paraplegic and has pressure ulcers secondary to immobility She was admitted to the hospital for low BP and an elevated HR. As per pts request, I was asked to return later today to change the dressing. PMHX: paraplegic, HTN, COPD, pressure ulcers PSHX: cholecystectomy, tonsillectomy Vital Signs Period Temp Pulse Resp BP Sys/Pressley Pulse Ox Last 24 Hr 97.7 F-100.0 F 79-106 16-22 90-109/53-71 95-98 GEN: Alert, NAD Sacrum: large sacral wound approx 8x10cm with minimal fibrinous material. No drainage noted, no erythema. good granulation base. On the right hip there is a chronic wound with some undermining, posteriorly approximately 3cm, no bone palpated. CBC, BMP 12/04/16 21:40 12/05/16 06:00 Microbiology Bld cultures 12/04-NGTD Problem List - Problems (1) Sacral ulcer Assessment/Plan: No need for surgical debridement, local wound care. Wound being changed by nursing staff, orders placed. IV abx as per ID D/w Dr. Garcia Code(s): L98.429 - NON-PRESSURE CHRONIC ULCER OF BACK WITH UNSPECIFIED SEVERITY Qualifiers: Non-pressure ulcer stage: unspecified non-pressure ulcer stage Qualified Code(s): L98.429 - Non-pressure chronic ulcer of back with unspecified severity
--- NOTE | 2016-12-05 17:50 | EKG ---
Test Reason : Blood Pressure : / mmHG Vent. Rate : 100 BPM Atrial Rate : 100 BPM P-R Int : 140 ms QRS Dur : 066 ms QT Int : 336 ms P-R-T Axes : 114 -10 068 degrees QTc Int : 433 ms POOR DATA QUALITY, INTERPRETATION MAY BE ADVERSELY AFFECTED SUBOPTIMAL EKG NORMAL SINUS RHYTHM RSR' IN V1-V2 ABNORMAL ECG WHEN COMPARED WITH ECG OF 17-OCT-2016 14:52, SINUS RHYTHM HAS REPLACED SINUS BRADYCARDIA VENT. RATE HAS INCREASED BY 44 BPM QUESTIONABLE CHANGE IN QRS DURATION REPEAT EKG IF CLINICALLY INDICATED Confirmed by ANTHONY CANO MD ([id number]) on 12/05/2016 5:50:41 PM Referred By: Confirmed By:ANTHONY CANO MD
[2016-12-05] MEDS: SODIUM CHLORIDE 1,000 ML IV SCH (21:15)
[2016-12-05] MEDS ORDERED: VANCOMYCIN 1,000 MG in DEXTROSE 5%-WATER - 250 ML IVPB SCH (22:00)
[2016-12-06] MEDS: SODIUM CHLORIDE 1,000 ML IV SCH ×2 (03:55→17:53)
[2016-12-06 06:11] LABS: SERUM IRON 16 ug/dL (27-139); TOTAL IRON BINDING CAPACITY 175 ug/dL (250-450); UIBC 159 ug/dL (118-369)
[2016-12-06] MEDS: AMINO ACIDS/PROTEIN HYDROLYS 30 ML LIQUID.PKT PO SCH ×2 (08:46→17:13)
--- NOTE | 2016-12-06 08:56 | PN ---
Progress Note, Physician Chief Complaint: AWAKE ALERT EATING BREAKFAST NAD - Current Medication List Current Medications: Active Medications Acetaminophen (Tylenol -) 650 mg PO Q4H PRN PRN Reason: FEVER OR PAIN Albuterol Sulfate (Ventolin 0.083% Nebulizer Soln -) 1 amp NEB QID PRN PRN Reason: SHORT OF BREATH/WHEEZING Albuterol/Ipratropium (Duoneb -) 1 amp NEB QIDR [facility] Last Admin: 12/05/16 17:12 Dose: Not Given Alprazolam (Xanax -) 0.25 mg PO Q6H PRN PRN Reason: ANXIETY Amino Acids (Prosource No Carb Liquid Pkt) 30 ml PO BID@0800,1730 [facility] Last Admin: 12/06/16 08:46 Dose: 30 ml Arformoterol Tartrate (Brovana (Restricted To Pulmonology/Resp) -) 1 amp NEB BID [facility] Last Admin: 12/05/16 11:00 Dose: 1 amp Ascorbic Acid (Vitamin C -) 500 mg PO DAILY [facility] Last Admin: 12/05/16 09:58 Dose: 500 mg Baclofen (Lioresal -) 10 mg PO BID [facility] Last Admin: 12/05/16 21:06 Dose: 10 mg Citalopram Hydrobromide (Celexa -) 10 mg PO DAILY [facility] Last Admin: 12/05/16 10:07 Dose: 10 mg Ferrous Sulfate (Feosol -) 325 mg PO DAILY [facility] Heparin Sodium (Porcine) (Heparin -) 5,000 unit SQ BID [facility] Last Admin: 12/05/16 21:06 Dose: 5,000 unit Sodium Chloride (Normal Saline -) 1,000 mls @ 75 mls/hr IV ASDIR [facility] Last Admin: 12/06/16 03:55 Dose: 75 mls/hr Ertapenem 1 gm/ Sodium (Chloride) 50 mls @ 50 mls/hr IVPB DAILY [facility] PRN Reason: Protocol Magnesium Hydroxide (Milk Of Magnesia -) 30 ml PO DAILY PRN Midodrine (Proamatine -) 2.5 mg PO TID-MID [facility] Last Admin: 12/05/16 17:22 Dose: Not Given Multivitamins/Minerals (Theragran-M) 1 each PO DAILY [facility] Last Admin: 12/05/16 09:58 Dose: 1 each Polyethylene Glycol (Miralax (For Daily Use) -) 17 gm PO DAILY [facility] Last Admin: 12/05/16 09:59 Dose: 17 gm Zinc Sulfate (Orazinc -) 220 mg PO BID [facility] Last Admin: 12/05/16 21:06 Dose: Not Given - Objective Vital Signs: Vital Signs Temperature 98.9 F 12/06/16 06:31 Pulse Rate 86 12/06/16 06:31 Respiratory Rate 20 12/06/16 06:31 Blood Pressure 101/55 12/06/16 06:31 O2 Sat by Pulse Oximetry (%) 97 12/05/16 21:00 Constitutional: Yes: No Distress Eyes: Yes: WNL HENT: Yes: WNL Neck: Yes: WNL Cardiovascular: Yes: Pulse Irregular Respiratory: Yes: WNL Gastrointestinal: Yes: WNL Genitourinary: Yes: Incontinence Musculoskeletal: Yes: Muscle Weakness Extremities: Yes: Other Edema: No Peripheral Pulses WNL: Yes Integumentary: Yes: Pressure Ulcer Wound/Incision: Yes: Dressing Dry and Intact Neurological: Yes: Pre-Existing Deficit, Weakness ...Motor Strength: LLE, RLE Psychiatric: Yes: Other Labs: CBC, BMP 12/04/16 21:40 12/05/16 06:00 INR, PTT INR 1.21 (0.82-1.09) H 12/04/16 15:00 Problem List - Problems (1) Anemia Code(s): D64.9 - ANEMIA, UNSPECIFIED Qualifiers: Other causes of anemia: chronic disease, neoplastic (2) Hypotension Code(s): I95.9 - HYPOTENSION, UNSPECIFIED Qualifiers: Hypotension type: unspecified hypotension type Qualified Code(s): I95.9 - Hypotension, unspecified (3) Sacral ulcer Code(s): L98.429 - NON-PRESSURE CHRONIC ULCER OF BACK WITH UNSPECIFIED SEVERITY Qualifiers: Non-pressure ulcer stage: unspecified non-pressure ulcer stage Qualified Code(s): L98.429 - Non-pressure chronic ulcer of back with unspecified severity (4) Tachycardia Code(s): R00.0 - TACHYCARDIA, UNSPECIFIED (5) Breast CA Code(s): C50.919 - MALIGNANT NEOPLASM OF UNSP SITE OF UNSPECIFIED FEMALE BREAST Qualifiers: Estrogen receptor status: unspecified Patient sex: female Laterality: unspecified laterality (6) COPD (chronic obstructive pulmonary disease) Code(s): J44.9 - CHRONIC OBSTRUCTIVE PULMONARY DISEASE, UNSPECIFIED Qualifiers : COPD type: unspecified COPD Qualified Code(s): J44.9 - Chronic obstructive pulmonary disease, unspecified (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 IRON LEVELS LOW, START FERROUS SULFATE 325MG DAILY CHECKING CBC NOW
[2016-12-06 09:01] LABS: MCH 27.8 pg (25.7-33.7); MCHC 31.6 g/dl (32.0-36.0); MEAN CELL VOLUME 87.7 fl (80-96); MEAN PLT VOLUME 8.2 fl (7.5-11.1); PLATELET COUNT 349 K/MM3 (134-434); RDW 15.8 % (11.6-15.6); WHITE BLOOD COUNT 8.9 K/mm3 (4.0-10.0)
[2016-12-06 09:09] LABS: ANION GAP 10 (8-16); CALCIUM 9.2 mg/dL (8.5-10.1); CO2 29 mmol/L (21-32); CREATININE 0.2 mg/dL (0.55-1.02); GLUCOSE,RANDOM 75 mg/dL (74-106)
[2016-12-06] MEDS ORDERED: PT OWN MED DRAWER 7, Y5N ONE (09:28)
[2016-12-06] MEDS: ASCORBIC ACID 500 MG TABLET (FP) PO SCH (09:35)
[2016-12-06] MEDS: POLYETHYLENE GLYCOL 3350 119 GM BTL PO SCH (09:35)
[2016-12-06] MEDS: ZINC SULFATE 220 MG CAPSULE (FP) PO SCH ×2 (09:35→21:23)
[2016-12-06] MEDS: FERROUS SO4 325 MG TABLET (FP) PO SCH ×2 (09:36→12:29)
[2016-12-06] MEDS: HEPARIN NA (PORCINE) 5,000 UNITS/ML 1ML VIAL SQ SCH ×2 (09:36→21:23)
[2016-12-06] MEDS: MULTIVITAMINS THER W-MINERALS COMBO TABLET (FP) PO SCH ×2 (09:36→12:29)
[2016-12-06] MEDS: CITALOPRAM HYDROBROMIDE 10 MG TABLET (FP) PO SCH (09:36)
[2016-12-06] MEDS: BACLOFEN 10 MG TABLET (FP) PO SCH ×2 (09:36→21:23)
[2016-12-06] MEDS: ERTAPENEM SODIUM 1 GM in SODIUM CHLORIDE 50 ML IVPB SCH (09:36)
[2016-12-06] MEDS: MIDODRINE HCL 2.5 MG TABLET PO SCH ×4 (09:37→17:09)
[2016-12-06] MEDS: ARFORMOTEROL TARTRATE 15 MCG/2 ML VIAL NEB SCH ×2 (10:21→22:13)
[2016-12-06] MEDS: ALBUTEROL SO4 2.5/IPRATROPIUM 0.5 INH SOL 3 ML VIAL.NEB. NEB SCH ×3 (11:22→18:15)
--- NOTE | 2016-12-06 12:41 | PN ---
Progress Note (short form) - Note Progress Note: awake and alert poor appetite persists Vital Signs Period Temp Pulse Resp BP Sys/Pressley Pulse Ox Last 24 Hr 97.7 F-99.5 F 71-96 16-20 90-126/55-70 96-97 cor-rrr lungs clear abd soft,nt ext no edema CBC, BMP 12/06/16 06:30 12/06/16 06:30 Microbiology 12/04/16 15:00 Blood - Peripheral Venous Blood Culture - Preliminary NO GROWTH OBTAINED AFTER 24 HOURS, INCUBATION TO CONTINUE FOR 4 DAYS. 12/04/16 15:00 Blood - Peripheral Venous Blood Culture - Preliminary NO GROWTH OBTAINED AFTER 24 HOURS, INCUBATION TO CONTINUE FOR 4 DAYS. imp/reccd hypotension/tachycardia- normal lactic acid-resolved ?dehydration ?sepsis- less likely would treat with ertapenem until cultures are back sacral ulcers examined and they appear clean continue local care to wounds metastatic breast cancer with paraplegia chronic constipation d/w Dr Marrero- plan is to return to [place] off antibiotics in am if blood cultures remain negative would not treat wound culture isolates as wound is clean and will always be colonized with bacteria please call back if needed Problem List - Problems (1) Hypotension Code(s): I95.9 - HYPOTENSION, UNSPECIFIED Qualifiers: Hypotension type: unspecified hypotension type Qualified Code(s): I95.9 - Hypotension, unspecified (2) Sacral ulcer Code(s): L98.429 - NON-PRESSURE CHRONIC ULCER OF BACK WITH UNSPECIFIED SEVERITY Qualifiers: Non-pressure ulcer stage: unspecified non-pressure ulcer stage Qualified Code(s): L98.429 - Non-pressure chronic ulcer of back with unspecified severity (3) Metastatic breast cancer Code(s): C50.919 - MALIGNANT NEOPLASM OF UNSP SITE OF UNSPECIFIED FEMALE BREAST
[2016-12-07] MEDS: ALBUTEROL SO4 2.5/IPRATROPIUM 0.5 INH SOL 3 ML VIAL.NEB. NEB SCH ×2 (06:38)
[2016-12-07 07:48] LABS: FERRITIN 136.576 ng/ml (6.9-282.5)
[2016-12-07] MEDS: AMINO ACIDS/PROTEIN HYDROLYS 30 ML LIQUID.PKT PO SCH ×2 (08:17→16:55)
--- NOTE | 2016-12-07 08:58 | DS ---
Physical Examination Vital Signs: Vital Signs Temperature 97.4 F L 12/07/16 06:00 Pulse Rate 82 12/07/16 06:00 Respiratory Rate 18 12/07/16 06:00 Blood Pressure 102/64 12/07/16 06:00 O2 Sat by Pulse Oximetry (%) 97 12/06/16 20:39 Constitutional: Yes: No Distress Eyes: Yes: WNL HENT: Yes: WNL Neck: Yes: WNL Cardiovascular: Yes: Pulse Irregular Respiratory: Yes: WNL Gastrointestinal: Yes: WNL Musculoskeletal: Yes: Muscle Weakness Extremities: Yes: Deformity Edema: No Peripheral Pulses WNL: Yes Integumentary: Yes: Pressure Ulcer Wound/Incision: Yes: Dressing Dry and Intact Neurological: Yes: Pre-Existing Deficit ...Motor Strength: LLE, RLE Psychiatric: Yes: Other Labs: CBC, BMP 12/06/16 06:30 12/06/16 06:30 Discharge Summary Reason For Visit: INFECTED DECUBITIS ULCER Current Active Problems Anemia (Acute) Hypotension (Acute) Quadriplegia and quadriparesis (Acute) Sacral ulcer (Acute) Tachycardia (Acute) Procedures: Principal: labs/cultures Hospital Course: admitted for hypotension, sepsis, given ivf, and iv abx, cultures negative x 3 days, dc back to assisted Condition: Stable - Instructions Diet, Activity, Other Instructions: regular diet dysphagia precautions Referrals: Rajesh Marrero MD [Primary Care Provider] - Disposition: HALF-WAY FACILITY - Home Medications Comprehensive Discharge Medication List: Ambulatory Orders Ascorbic Acid [Vitamin C -] 500 mg PO DAILY 08/31/16 Magnesium Hydroxide [Milk of Magnesia] 400 mg PO PRN 08/31/16 Acetaminophen [Tylenol .Regular Strength -] 650 mg PO Q4H PRN #0 tablet Arformoterol Tartrate [Brovana -] 1 amp NEB BID amp 09/20/16 Alprazolam [Xanax] 0.25 mg PO Q6H PRN #0 tablet MDD 4 10/19/16 Amino Acids/Protein Hydrolys [Prosource No Carb Liquid Pkt] 30 ml PO BID@0800, 1730 packet 10/19/16 Baclofen [Lioresal -] 10 mg PO BID tablet 10/19/16 Citalopram Hydrobromide [Celexa -] 10 mg PO DAILY tablet 10/19/16 Midodrine HCl [Proamatine -] 2.5 mg PO TID-MID tablet 10/19/16 Albuterol 2.5/Ipratropium 0.5 [Duoneb -] 1 amp NEB Q6H PRN #0 amp 10/25/16 Ferrous Sulfate [Feosol] 325 mg PO DAILY tab 12/07/16 Heparin - 5,000 unit SQ BID vial 12/07/16 Polyethylene Glycol 3350 [Miralax 119 gm Btl -] 17 gm PO DAILY bottle 12/07/16 Zinc Sulfate [Orazinc -] 220 mg PO BID tab 12/07/16
[2016-12-07] MEDS ORDERED: PT OWN MED DRAWER 7, Y5N ONE ×2 (09:18→13:26)
[2016-12-07] MEDS: POLYETHYLENE GLYCOL 3350 119 GM BTL PO SCH (09:30)
[2016-12-07] MEDS: SODIUM CHLORIDE 1,000 ML IV SCH (09:30)
[2016-12-07] MEDS: CITALOPRAM HYDROBROMIDE 10 MG TABLET (FP) PO SCH (09:31)
[2016-12-07] MEDS: ZINC SULFATE 220 MG CAPSULE (FP) PO SCH ×2 (09:31→09:36)
[2016-12-07] MEDS: HEPARIN NA (PORCINE) 5,000 UNITS/ML 1ML VIAL SQ SCH (09:35)
[2016-12-07] MEDS: MULTIVITAMINS THER W-MINERALS COMBO TABLET (FP) PO SCH (09:35)
[2016-12-07] MEDS: MIDODRINE HCL 2.5 MG TABLET PO SCH ×2 (09:35→13:27)
[2016-12-07] MEDS: BACLOFEN 10 MG TABLET (FP) PO SCH (09:35)
[2016-12-07] MEDS: ASCORBIC ACID 500 MG TABLET (FP) PO SCH (09:35)
[2016-12-07] MEDS: FERROUS SO4 325 MG TABLET (FP) PO SCH (09:35)
[2016-12-07] MEDS: ARFORMOTEROL TARTRATE 15 MCG/2 ML VIAL NEB SCH (10:50)
[2016-12-07] MEDS: ERTAPENEM SODIUM 1 GM in SODIUM CHLORIDE 50 ML IVPB SCH (10:53)
[2016-12-07 15:14] VITALS: BP 93/55; PULSE 80; TEMP 98
== END 2016-12-07 17:45 | DRG 871 ==
LOC: JER 15:27 → JERBED 18:31 → J8W 21:25
PROVIDERS: ADMIT Family Medicine; ATTEND Family Medicine
DX: A41.9 Sepsis, unspecified organism (principal); G82.50 Quadriplegia, unspecified; L89.154 Pressure ulcer of sacral region, stage 4; G82.20 Paraplegia, unspecified; J44.9 Chronic obstructive pulmonary disease, unspecified; Z85.3 Personal history of malignant neoplasm of breast; Z90.12 Acquired absence of left breast and nipple; Z87.891 Personal history of nicotine dependence; R32 Unspecified urinary incontinence; G62.9 Polyneuropathy, unspecified; K59.09 Other constipation
CPT/HCPCS: 36415; 71010-TC; 80048; 80053; 80061; 82728; 82803; 83036; 83540; 83550; 83605; 83721; 84484; 85025; 85027; 85610; 85730; 86850; 86900; 86901; 87040; 87070; 87186; 87205; 93005; 93010; 94640; 99285-25; J0475; J1644

== ENCOUNTER 2016-12-28 09:16 | Inpatient (IN) | payer OTHER ==
--- NOTE | 2016-12-28 09:28 | PDOC ---
History of Present Illness - General History Source: Patient, EMS, [facility] Records Exam Limitations: No Limitations - History of Present Illness Initial Comments: 12/28/16 10:15 The patient is a 66 year old female resident from [facility] with a significant past medical history of metastatic breast CA with mets to the spine , paraplegia, COPD, pressure ulcers secondary to immobility, peripheral neuropathy, Atrial fibrillation who presents to the emergency department for low BP. Patient states she was started on Midodrine and since then has been experiencing high/low BPs. Patient endorses generalized weakness and frequent chills for the past week. Patient was recently admitted to the hospital (10/12/16) for sepsis. Patient also reports 3 ulcers on her buttocks, and old healing ulcers on bilateral feet. She currently denies any pain, headache or dizziness. She denies fever, chills, abdominal pain, nausea, vomit, diarrhea or constipation. She denies dysuria, frequency, urgency or hematuria. Allergies: epinephrine, procaine, sulfamethoxazole, trimethoprim Past surgical history: mastectomy, Atrial septal defect repair 1962 Social history: Former smoker PCP: Dr. 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) CVA: (Paraplegia) COPD: Yes Psychiatric Problems: Yes (ANXIETY) - Surgical History Cardiac Surgery: Yes (AAtrial septal defect repair 1962) - Suicide/Smoking/Psychosocial Hx Smoking History: Former smoker Have you smoked in the past 12 months: Yes Number of Cigarettes Smoked Daily: 4 If you are a former smoker, when did you quit?: 09/19/2016 Hx Alcohol Use: No Drug/Substance Use Hx: No Substance Use Type: None Hx Substance Use Treatment: No <Shasta Dudley - Last Filed: 12/28/16 11:52> - Past Medical History Allergies/Adverse Reactions: Allergies Allergy/AdvReac Type Severity Reaction Status Date / Time epinephrine Allergy Verified 09/28/17 09:25 procaine Allergy Verified 12/28/16 09:25 sulfamethoxazole Allergy Verified 12/28/16 09:25 trimethoprim Allergy Verified 12/28/16 09:25 Home Medications: Ambulatory Orders Unobtainable [Unobtainable] 12/28/16 Review of Systems - Review of Systems Able to Perform ROS?: Yes Comments:: 12/28/16 10:15 GENERAL/CONSTITUTIONAL: No fever or chills. + generalized weakness. HEAD, EYES, EARS, NOSE AND THROAT: No change in vision. No ear pain or discharge. No sore throat. GASTROINTESTINAL: No nausea, vomiting, diarrhea or constipation. GENITOURINARY: No dysuria, frequency, or change in urination. CARDIOVASCULAR: No chest pain or shortness of breath. RESPIRATORY: No cough, wheezing, or hemoptysis. MUSCULOSKELETAL: No joint or muscle swelling or pain. No neck or back pain. SKIN: No rash NEUROLOGIC: No headache, vertigo, loss of consciousness, or change in strength/ sensation. ENDOCRINE: No increased thirst. No abnormal weight change. HEMATOLOGIC/LYMPHATIC: No anemia, easy bleeding, or history of blood clots. ALLERGIC/IMMUNOLOGIC: No hives or skin allergy. <Jenniffer Del Valle - Last Filed: 12/28/16 11:51> *Physical Exam - Vital Signs Last Vital Signs Temp Pulse Resp BP Pulse Ox 98 F 85 18 120/88 98 12/28/16 09:26 12/28/16 09:47 12/28/16 09:26 12/28/16 09:26 12/28/16 09:47 - Physical Exam Comments: 12/28/16 10:15 GENERAL: Awake, alert, and fully oriented, in no acute distress HEAD: No signs of trauma EYES: PERRLA, EOMI, sclera anicteric, conjunctiva clear ENT: Auricles normal inspection, hearing grossly normal, nares patent, oropharynx clear without exudates. Moist mucosa NECK: Normal ROM, supple, no lymphadenopathy, JVD, or masses LUNGS: Breath sounds equal, clear to auscultation bilaterally. No wheezes, and no crackles HEART: Regular rate and rhythm, normal S1 and S2, no murmurs, rubs or gallops ABDOMEN: Soft, nontender, normoactive bowel sounds. No guarding, no rebound. No masses EXTREMITIES: Normal range of motion, no edema. No clubbing or cyanosis. No cords, erythema, or tenderness NEUROLOGICAL: Cranial nerves II through XII grossly intact. Normal speech. SKIN: +Healed pink ulcer on medial aspect of R foot. No induration, warmth or surrounding erythema..+ Healing wound on medial aspect of R tibia.+ Ulcer on medial heel of L foot. +Dry cracked feet. +Healed ulcer to lateral malleolus of L leg. + Stage 4 ulcers on L, R and sacrum with mild erythema with serosanguinous fluid. Warm, Dry, normal turgor, no rashes or lesions noted. <Jenniffer Del Valle - Last Filed: 12/28/16 11:51> Heart Score/ECG Review - History History: Slightly suspicious - Electrocardiogram EKG: Non specific repolarization disturbance - Age Age: >/= 65 - Risk Factors Risk Factors Heart Score: No Hx Diabetes (afib hx) Based on the list above the patient has:: 1-2 risk factors - Troponin Troponin: 1-3x normal limit - Score Heart Score - Total: 5 - ECG Intrepretation Comment:: 12/28/16 10:12 SINUS AT 66, NL AXIS, NL INTERVAL, T WAVE INVERSIONS V4-6, I, AVL, BASELINE ARTIFACT, T WAVE INVERSIONS ARE NEW COMPARED TO OLD <Shasta Dudley - Last Filed: 12/28/16 11:52> ED Treatment Course - LABORATORY CBC & Chemistry Diagram: 12/28/16 09:46 12/28/16 09:46 <Jenniffer Del Valle - Last Filed: 12/28/16 11:51> - LABORATORY CBC & Chemistry Diagram: 12/28/16 09:46 12/28/16 09:46 <Shasta Dudley - Last Filed: 12/28/16 11:52> Medical Decision Making - Medical Decision Making 12/28/16 10:13 66yo female with breast ca s/p mastectomy presents from [facility] for eval of hypotension -pt with multiple sacral ulcers and leg ulcers -labs -lactate -repeat vitals -ivf hydration -trop -ekg -cxr -reassess -surveillance system monitor 12/28/16 11:46 pt with elevated troponin and elevated BNP -case discussed with PMD dr godinez who accepts pt to service consult placed cardiology dr sen pt will be admitted to tele <Shasta Dudley - Last Filed: 12/28/16 11:52> *DC/Admit/Observation/Transfer - Attestations Scribe Attestion: 12/28/16 10:16 Documentation prepared by Jenniffer Del Valle, acting as medical superintendent for Shasta Dudley DO <Jenniffer Del Valle - Last Filed: 12/28/16 11:51> - Discharge Dispostion Admit: Yes - Attestations Physician Attestion: 12/28/16 10:16 I, Dr. Shasta Dudley, DO, attest that this document has been prepared under my direction and personally reviewed by me in its entirety. I further attest, that it accurately reflects all work, treatment, procedures and medical decision -making performed by me. <Shasta Dudley - Last Filed: 12/28/16 11:52> Diagnosis at time of Disposition: Elevated troponin - Discharge Dispostion Condition at time of disposition: Guarded - Referrals Referrals: Rajesh Godinez MD [Primary Care Provider] -
[2016-12-28] MEDS ORDERED: SODIUM CHLORIDE 0.9% 1000 ML INFUS.BAG IV ONE (09:40)
[2016-12-28 10:09] VITALS: BMI 19.9
[2016-12-28 10:21] LABS: BASOPHIL 0.4 % (0-2.0); EOSINOPHIL 1.5 % (0-4.5); MCH 26.9 pg (25.7-33.7); MCHC 31.5 g/dl (32.0-36.0); MEAN CELL VOLUME 85.4 fl (80-96); MEAN PLT VOLUME 6.3 fl (7.5-11.1); PLATELET COUNT 605 K/MM3 (134-434); RDW 16.8 % (11.6-15.6); WHITE BLOOD COUNT 10.4 K/mm3 (4.0-10.0)
[2016-12-28 10:39] LABS: INR 1.24 (0.82-1.09); PROTHROMBIN TIME (PATIENT) 13.7 SEC (9.98-11.88)
--- NOTE | 2016-12-28 10:40 | EKG ---
Test Reason : Blood Pressure : / mmHG Vent. Rate : 085 BPM Atrial Rate : 085 BPM P-R Int : 140 ms QRS Dur : 066 ms QT Int : 402 ms P-R-T Axes : 088 -18 081 degrees QTc Int : 478 ms POOR DATA QUALITY, INTERPRETATION MAY BE ADVERSELY AFFECTED NORMAL SINUS RHYTHM WITH SINUS ARRHYTHMIA CANNOT RULE OUT ANTERIOR INFARCT , AGE UNDETERMINED T WAVE ABNORMALITY, CONSIDER LATERAL ISCHEMIA ABNORMAL ECG WHEN COMPARED WITH ECG OF 04-DEC-2016 16:19, NONSPECIFIC T WAVE ABNORMALITY NOW EVIDENT IN INFERIOR LEADS T WAVE INVERSION NOW EVIDENT IN ANTERIOR LEADS Confirmed by EZEQUIEL ALMAZAN MD ([id number]) on 12/28/2016 10:39:29 AM Referred By: Confirmed By:EZEQUIEL ALMAZAN MD
[2016-12-28 10:47] LABS: MAGNESIUM 2.2 mg/dL (1.8-2.4)
[2016-12-28 10:54] LABS: ALBUMIN 1.6 g/dl (3.4-5.0); ANION GAP 8 (8-16); BILIRUBIN,TOTAL 0.2 mg/dL (0.2-1.0); CALCIUM 9.3 mg/dL (8.5-10.1); CO2 32 mmol/L (21-32); CREATININE 0.2 mg/dL (0.55-1.02); GLUCOSE,RANDOM 95 mg/dL (74-106); SGOT/AST 17 U/L (15-37); SGPT/ALT 13 U/L (12-78); TOT PROT 5.7 g/dl (6.4-8.2)
[2016-12-28 11:08] LABS: ALK PHOS 166 U/L (45-117); CPK 43 IU/L (26-192)
[2016-12-28] MEDS ORDERED: ASPIRIN 81 MG CHEWABLE TABLETS PO ONE (11:43)
[2016-12-28] MEDS ORDERED: ACETAMINOPHEN 325 MG TABLET (FP) PO ONE (11:45)
[2016-12-28 12:06] LABS: URINE APPEARANCE CLOUDY; URINE BILIRUBIN NEGATIVE (NEGATIVE); URINE BLOOD 2+ (NEGATIVE); URINE COLOR LTYELLOW; URINE GLUCOSE (UA) NEGATIVE (NEGATIVE); URINE KETONE NEGATIVE (NEGATIVE); URINE NITRITE NEGATIVE (NEGATIVE); URINE PROTEIN NEGATIVE (NEGATIVE); URINE UROBILINOGEN NEGATIVE mg/dL (0.2-1.0)
[2016-12-28 12:20] LABS: URINE LEUK ESTERASE 3+ (NEGATIVE)
[2016-12-28 12:22] LABS: URINE BACTERIA RARE /hpf (NONE SEEN); URINE WBC 18 /hpf (3-5)
[2016-12-28] MEDS ORDERED: ASPIRIN 81 MG CHEWABLE TABLETS ONE (13:54)
[2016-12-28] MEDS ORDERED: SODIUM CHLORIDE 250 ML IV SCH (14:30)
[2016-12-28] MEDS ORDERED: MIDODRINE HCL 2.5 MG TABLET PO SCH (16:00)
--- NOTE | 2016-12-28 16:08 | CON.CARD ---
Consult Consult Specialty:: Cardiology Referred by:: Dr. Marrero Reason for Consultation:: Hypotension and elevated troponin - History of Present Illness Chief Complaint: Weakness History of Present Illness: 66 year old woman, former smoker, resident of [facility] with a PMHx of metastatic breast cancer to the spine, paraplegia, COPD, pressure ulcers secondary to immobility, peripheral neuropathy, paroxysmal atrial fibrillation admitted 12/28/2016 with low BP. Ms. Mcdaniel was admitted with September 2016 with sepsis and December 2016 with low BP. She was been taking Midodrine 2.5 mg TID. Her BP remains low while on Midodrine. IV fluid in ED did not help her BP. She has mild SOB but denies chest pain, palpitation, dizziness, syncope or near syncope. She was found to have elevated troponin (0.90). Pro-BNP is elevated. ECG showed lateral T wave abnormalities. 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 Cardio/Vascular: Yes: AFIB Pulmonary: Yes: COPD - Past Surgical History Past Surgical History: Yes: Cholecystectomy, Tonsillectomy - Alcohol/Substance Use Hx Alcohol Use: No - Smoking History Smoking history: Former smoker Have you smoked in the past 12 months: Yes Aproximately how many cigarettes per day: 4 If you are a former smoker, when did you quit?: 09/19/2016 - Social History Usual Living Arrangement: [facility] Home Medications - Allergies Allergies/Adverse Reactions: Allergies Allergy/AdvReac Type Severity Reaction Status Date / Time epinephrine Allergy Verified 12/28/16 09:25 procaine Allergy Verified 12/28/16 09:25 sulfamethoxazole Allergy Verified 12/28/16 09:25 trimethoprim Allergy Verified 12/28/16 09:25 - Home Medications Home Medications: Ambulatory Orders Unobtainable [Unobtainable] 12/28/16 Review of Systems - Review of Systems Constitutional: reports: Malaise, Weakness Eyes: reports: No Symptoms Neck: reports: No Symptoms Cardiovascular: reports: Shortness of Breath Respiratory: reports: SOB Gastrointestinal: reports: No Symptoms Musculoskeletal: reports: Muscle Weakness Integumentary: reports: Other (Pressure ulcers) Vital Signs: Vital Signs Temperature 98 F 12/28/16 09:26 Pulse Rate 89 12/28/16 14:09 Respiratory Rate 18 12/28/16 14:09 Blood Pressure 102/64 12/28/16 14:09 O2 Sat by Pulse Oximetry (%) 99 12/28/16 14:09 Constitutional: Yes: No Distress, Calm, Other (Chronic ill.) HENT: Yes: WNL, Atraumatic, Normocephalic Neck: Yes: Supple, Trachea Midline Respiratory: Yes: Regular, Rales Gastrointestinal: Yes: Normal Bowel Sounds, Soft Cardiovascular: Yes: Regular Rate and Rhythm JVD: No PMI: Non-Displaced Heart Sounds: Yes: S1, S2 Musculoskeletal: Yes: Other Edema: Yes Edema: LLE: Trace, RLE: Trace Peripheral Pulses WNL: Yes - Other Data Labs, Other Data: INR, PTT INR 1.24 (0.82-1.09) H 12/28/16 09:46 Imaging - Results EKG: Image Reviewed (Sinus rhythm. Lateral T inversion.) Assessment/Plan 66 year old woman, former smoker, resident of [facility] with a PMHx of metastatic breast cancer to the spine, paraplegia, COPD, pressure ulcers secondary to immobility, peripheral neuropathy, paroxysmal atrial fibrillation admitted 12/28/2016 with low BP while on Midodrine 2.5 mg TID. She was found to have elevated troponin (0.90). Pro-BNP is elevated. ECG showed lateral T wave abnormalities. 1) Low BP, possible sepsis vs poor po intake. Increase Midodrine to 5 mg TID. Hold IV fluid since she has dyspnea and pulmonary congestion. 2) Elevated troponin without chest pain. It is likely Type II PR, secondary to low BP, decreased coronary perfusion and anemia. Conservative cardiac care. Repeat echocardiogram to reevaluate LV function and segmental wall motion.
[2016-12-28 17:27] LABS: TROPONIN I 0.57 ng/ml (0.00-0.05)
[2016-12-28] MEDS ORDERED: ACETAMINOPHEN 325 MG TABLET (FP) ONE (18:33)
[2016-12-28] MEDS: MIDODRINE HCL 5 MG TABLET PO SCH (18:39)
[2016-12-28] MEDS: SODIUM CHLORIDE 1,000 ML IV SCH ×2 (18:40→22:00)
[2016-12-28] MEDS ORDERED: ALBUTEROL SO4 2.5/IPRATROPIUM 0.5 INH SOL 3 ML VIAL.NEB. NEB PRN (18:54)
[2016-12-28] MEDS ORDERED: INSULIN (NOVOLOG) ASPART 100 UNITS/ML 10ML VIAL ONE (20:12)
[2016-12-28] MEDS: ACETAMINOPHEN 325 MG TABLET (FP) PO PRN (21:15)
[2016-12-28] MEDS: NYSTATIN 100,000 UNIT/GM TOPICAL CREAM 15 GM TUBE TP SCH (21:54)
[2016-12-28] MEDS: HEPARIN NA (PORCINE) 5,000 UNITS/ML 1ML VIAL SQ SCH (21:54)
[2016-12-28] MEDS: BACLOFEN 10 MG TABLET (FP) PO SCH (23:42)
[2016-12-29] MEDS: CITALOPRAM HYDROBROMIDE 10 MG TABLET (FP) PO SCH ×3 (00:15→22:12)
[2016-12-29] MEDS: ACETAMINOPHEN 325 MG TABLET (FP) PO PRN ×4 (03:19→22:15)
[2016-12-29 08:35] LABS: MEAN CELL VOLUME 86.6 fl (80-96); MEAN PLT VOLUME 6.9 fl (7.5-11.1); PLATELET COUNT 441 K/MM3 (134-434); RDW 16.7 % (11.6-15.6)
[2016-12-29] MEDS ORDERED: PT OWN MED DRAWER 7, Y5N ONE ×3 (08:57→23:04)
[2016-12-29] MEDS: NYSTATIN 100,000 UNIT/GM TOPICAL CREAM 15 GM TUBE TP SCH ×2 (09:05→22:34)
[2016-12-29] MEDS: HEPARIN NA (PORCINE) 5,000 UNITS/ML 1ML VIAL SQ SCH ×2 (09:05→22:14)
[2016-12-29] MEDS: MIDODRINE HCL 5 MG TABLET PO SCH ×3 (09:10→17:09)
[2016-12-29] MEDS: BACLOFEN 10 MG TABLET (FP) PO SCH ×2 (09:12→22:13)
[2016-12-29 09:15] LABS: ALBUMIN 1.4 g/dl (3.4-5.0); ANION GAP 6 (8-16); CALCIUM 8.9 mg/dL (8.5-10.1); CO2 30 mmol/L (21-32); CREATININE 0.2 mg/dL (0.55-1.02); GLUCOSE,RANDOM 69 mg/dL (74-106); SGOT/AST 12 U/L (15-37); SGPT/ALT 11 U/L (12-78)
[2016-12-29 09:17] LABS: ALK PHOS 148 U/L (45-117); BILIRUBIN,TOTAL 0.1 mg/dL (0.2-1.0); TOT PROT 5.4 g/dl (6.4-8.2)
[2016-12-29] MEDS: SODIUM CHLORIDE 1,000 ML IV SCH (09:30)
--- NOTE | 2016-12-29 11:42 | HP ---
Admitting History and Physical - Primary Care Physician PCP: Rajesh Marrero - Admission Chief Complaint: sent for low BP History of Present Illness: The patient is a 66 year old female resident from [facility] with a significant past medical history of metastatic breast CA with mets to the spine , paraplegia, COPD, pressure ulcers secondary to immobility, peripheral neuropathy, Atrial fibrillation who presents to the emergency department for low BP. Patient states she was started on Midodrine and since then has been experiencing low BPs. Patient endorses generalized weakness and frequent chills for the past week. Patient was recently admitted to the hospital (10/12/16) for sepsis. Patient also reports 3 ulcers on her buttocks, and old healing ulcers on bilateral feet. She currently denies any pain, headache or dizziness. She denies fever, chills, abdominal pain, nausea, vomit, diarrhea or constipation. She denies dysuria, frequency, urgency or hematuria. Allergies: epinephrine, procaine, sulfamethoxazole, trimethoprim Past surgical history: mastectomy, Atrial septal defect repair 1963 Social history: Former smoker PCP: Dr. 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 Cardiovascular: Yes: AFIB Pulmonary: Yes: COPD - Past Surgical History Past Surgical History: Yes: Cholecystectomy, Tonsillectomy - Smoking History Smoking history: Former smoker Have you smoked in the past 12 months: Yes Aproximately how many cigarettes per day: 4 If you are a former smoker, when did you quit?: 09/19/2016 - Alcohol/Substance Use Hx Alcohol Use: No Home Medications - Allergies Allergies/Adverse Reactions: Allergies Allergy/AdvReac Type Severity Reaction Status Date / Time epinephrine Allergy Verified 12/28/16 09:25 procaine Allergy Verified 12/28/16 09:25 sulfamethoxazole Allergy Verified 12/28/16 09:25 trimethoprim Allergy Verified 12/28/16 09:25 - Home Medications Home Medications: Ambulatory Orders Unobtainable [Unobtainable] 12/28/16 Physical Examination Vital Signs: Vital Signs Temperature 97.5 F L 12/29/16 06:28 Pulse Rate 78 12/29/16 06:28 Respiratory Rate 18 12/29/16 06:28 Blood Pressure 96/56 12/29/16 06:28 O2 Sat by Pulse Oximetry (%) 98 12/28/16 22:00 Constitutional: Yes: No Distress, Thin Neck: Yes: Trachea Midline Cardiovascular: Yes: Regular Rate and Rhythm, S1, S2 Respiratory: Yes: Diminished (breath sounds) Gastrointestinal: Yes: Normal Bowel Sounds, Soft Edema: No Neurological: Yes: Alert Labs: CBC, BMP 12/29/16 07:35 12/29/16 07:35 Imaging - Results EKG: Report Reviewed (t wave inversion noted) Problem List - Problems (1) Elevated troponin Assessment/Plan: trend troponin possibly secondary to low BP echo tele cardio consult appreicated Code(s): R74.8 - ABNORMAL LEVELS OF OTHER SERUM ENZYMES (2) COPD (chronic obstructive pulmonary disease) Assessment/Plan: nebs prn Code(s): J44.9 - CHRONIC OBSTRUCTIVE PULMONARY DISEASE, UNSPECIFIED Qualifiers : COPD type: unspecified COPD Qualified Code(s): J44.9 - Chronic obstructive pulmonary disease, unspecified (3) Hypotension Assessment/Plan: midodrine dose increased by cardio Code(s): I95.9 - HYPOTENSION, UNSPECIFIED Qualifiers: Hypotension type: unspecified hypotension type Qualified Code(s): I95.9 - Hypotension, unspecified
[2016-12-29] MEDS: ARFORMOTEROL TARTRATE 15 MCG/2 ML VIAL NEB SCH ×2 (13:00→22:19)
--- NOTE | 2016-12-29 14:01 | PN ---
Progress Note, Physician Chief Complaint: Patient complains of SOB and intermittent palpitation. She refuses taking her medications. Tele shows sinus rhythm with periods of mild sinus tachycardia. Rare VPCs noted. History of Present Illness: 66 year old woman, former smoker, resident of [facility] with a PMHx of metastatic breast cancer to the spine, paraplegia, COPD, pressure ulcers secondary to immobility, peripheral neuropathy, paroxysmal atrial fibrillation admitted 12/28/2016 with low BP. Ms. Mcdaniel was admitted with September 2016 with sepsis and December 2016 with low BP. She was been taking Midodrine 2.5 mg TID. Her BP remains low while on Midodrine. IV fluid in ED did not help her BP. She has mild SOB but denies chest pain, palpitation, dizziness, syncope or near syncope. She was found to have elevated troponin (0.90). Pro-BNP is elevated. ECG showed lateral T wave abnormalities. - Current Medication List Current Medications: Active Medications Acetaminophen (Tylenol -) 650 mg PO Q4H PRN PRN Reason: PAIN OR TEMP >100.5 F Last Admin: 12/29/16 10:37 Dose: 650 mg Albuterol/Ipratropium (Duoneb -) 1 amp NEB Q6H PRN Arformoterol Tartrate (Brovana (Restricted To Pulmonology/Resp) -) 1 amp NEB BID [facility] Ascorbic Acid (Vitamin C -) 250 mg PO BID [facility] Baclofen (Lioresal -) 10 mg PO BID [facility] Last Admin: 12/29/16 09:12 Dose: 10 mg Citalopram Hydrobromide (Celexa -) 10 mg PO BID [facility] Last Admin: 12/29/16 09:05 Dose: Not Given Ferrous Sulfate (Feosol -) 325 mg PO BIDWM [facility] Heparin Sodium (Porcine) (Heparin -) 5,000 unit SQ BID [facility] Last Admin: 12/29/16 09:05 Dose: Not Given Sodium Chloride (Normal Saline -) 1,000 mls @ 100 mls/hr IV ASDIR [facility] Last Admin: 12/28/16 22:00 Dose: 100 mls/hr Midodrine (Proamatine -) 5 mg PO TID-MID [facility] Last Admin: 12/29/16 09:10 Dose: Not Given Nystatin (Mycostatin Cream -) 1 applic TP BID [facility] Last Admin: 12/29/16 09:05 Dose: 1 applic - Objective Vital Signs: Vital Signs Temperature 97.8 F 12/29/16 10:00 Pulse Rate 88 12/29/16 10:00 Respiratory Rate 18 12/29/16 10:00 Blood Pressure 120/77 12/29/16 10:00 O2 Sat by Pulse Oximetry (%) 96 12/29/16 09:00 Constitutional: Yes: Anxious, Mild Distress, Thin Eyes: Yes: Conjunctiva Clear, EOM Intact HENT: Yes: Atraumatic, Normocephalic Neck: Yes: Supple, Trachea Midline Cardiovascular: Yes: Regular Rate and Rhythm, Tachycardia Respiratory: Yes: Regular, Rhonchi, Tachypnea Gastrointestinal: Yes: Normal Bowel Sounds, Soft ...Rectal Exam: Yes: Deferred Edema: No Peripheral Pulses WNL: Yes Labs: CBC, BMP 12/29/16 07:35 12/29/16 07:35 INR, PTT INR 1.24 (0.82-1.09) H 12/28/16 09:46 Assessment/Plan 66 year old woman, former smoker, resident of [facility] with a PMHx of metastatic breast cancer to the spine, paraplegia, COPD, pressure ulcers secondary to immobility, peripheral neuropathy, paroxysmal atrial fibrillation admitted 12/28/2016 with low BP while on Midodrine 2.5 mg TID. She was found to have elevated troponin (0.90). Pro-BNP is elevated. ECG showed lateral T wave abnormalities. 1) Low BP, possible sepsis vs poor po intake. BP is stable with mild sinus tachycardia and symptoms of palpitation. Continue Midodrine to 5 mg TID if she is not refusing. Hold IV fluid since she has dyspnea and pulmonary congestion. Start Lasix 20 mg PO daily for now. 2) Elevated troponin without chest pain. It is likely Type II OK, secondary to low BP, decreased coronary perfusion and anemia. Conservative cardiac care. Repeat echocardiogram to reevaluate LV function and segmental wall motion.
[2016-12-29] MEDS: ASCORBIC ACID 250 MG TABLET (FP) PO SCH ×2 (14:50→22:34)
[2016-12-29] MEDS ORDERED: LORazepam 1 MG TABLET PO PRN (15:49)
[2016-12-29] MEDS: FERROUS SO4 325 MG TABLET (FP) PO SCH ×2 (17:06→18:37)
[2016-12-29] MEDS: FUROSEMIDE 20 MG TABLET (FP) PO SCH (19:10)
[2016-12-30] MEDS: ARFORMOTEROL TARTRATE 15 MCG/2 ML VIAL NEB SCH ×3 (00:30→22:10)
[2016-12-30] MEDS: ACETAMINOPHEN 325 MG TABLET (FP) PO PRN ×4 (02:49→21:24)
[2016-12-30 07:38] LABS: ALBUMIN 1.4 g/dl (3.4-5.0); ANION GAP 7 (8-16); CALCIUM 8.5 mg/dL (8.5-10.1); CO2 29 mmol/L (21-32); CREATININE 0.2 mg/dL (0.55-1.02); GLUCOSE,RANDOM 68 mg/dL (74-106); SGOT/AST 13 U/L (15-37); SGPT/ALT 10 U/L (12-78)
[2016-12-30 07:43] LABS: ALK PHOS 131 U/L (45-117); BILIRUBIN,TOTAL 0.7 mg/dL (0.2-1.0); CPK 28 IU/L (26-192); TOT PROT 5.4 g/dl (6.4-8.2); TROPONIN I 0.15 ng/ml (0.00-0.05)
[2016-12-30] MEDS ORDERED: PT OWN MED DRAWER 7, Y5N ONE ×5 (09:47→22:10)
[2016-12-30] MEDS: FERROUS SO4 325 MG TABLET (FP) PO SCH ×2 (09:52→17:00)
[2016-12-30] MEDS: BACLOFEN 10 MG TABLET (FP) PO SCH ×2 (09:53→21:24)
[2016-12-30] MEDS: FUROSEMIDE 20 MG TABLET (FP) PO SCH (09:53)
[2016-12-30] MEDS: ASCORBIC ACID 250 MG TABLET (FP) PO SCH ×3 (10:02→21:27)
[2016-12-30] MEDS: MIDODRINE HCL 5 MG TABLET PO SCH ×3 (10:02→17:00)
[2016-12-30] MEDS: COLLAGENASE CLOSTRIDIUM HIST. 30 GRAMS TUBE TP SCH (10:02)
[2016-12-30] MEDS: HEPARIN NA (PORCINE) 5,000 UNITS/ML 1ML VIAL SQ SCH ×2 (10:03→21:24)
[2016-12-30] MEDS: CITALOPRAM HYDROBROMIDE 10 MG TABLET (FP) PO SCH ×2 (10:03→21:24)
[2016-12-30] MEDS: NYSTATIN 100,000 UNIT/GM TOPICAL CREAM 15 GM TUBE TP SCH ×2 (10:03→21:46)
--- NOTE | 2016-12-30 11:53 | PN ---
Progress Note, Physician Chief Complaint: SOB much improved Tele: sinus History of Present Illness: 66 year old woman, former smoker, resident of [facility] with a PMHx of metastatic breast cancer to the spine, paraplegia, COPD, pressure ulcers secondary to immobility, peripheral neuropathy, paroxysmal atrial fibrillation admitted 12/28/2016 with low BP while on Midodrine 2.5 mg TID. She was found to have elevated troponin (0.90). Pro-BNP is elevated. ECG showed lateral T wave abnormalities. - Current Medication List Current Medications: Active Medications Acetaminophen (Tylenol -) 650 mg PO Q4H PRN PRN Reason: PAIN OR TEMP >100.5 F Last Admin: 12/30/16 09:53 Dose: 650 mg Albuterol/Ipratropium (Duoneb -) 1 amp NEB Q6H PRN Arformoterol Tartrate (Brovana (Restricted To Pulmonology/Resp) -) 1 amp NEB BID [facility] Last Admin: 12/30/16 10:36 Dose: 1 amp Ascorbic Acid (Vitamin C -) 250 mg PO BID [facility] Last Admin: 12/30/16 10:02 Dose: Not Given Baclofen (Lioresal -) 10 mg PO BID [facility] Last Admin: 12/30/16 09:53 Dose: 10 mg Citalopram Hydrobromide (Celexa -) 10 mg PO BID [facility] Last Admin: 12/30/16 10:03 Dose: Not Given Collagenase (Santyl -) 1 applic TP DAILY [facility] Last Admin: 12/30/16 10:02 Dose: 1 applic Ferrous Sulfate (Feosol -) 325 mg PO BIDWM [facility] Last Admin: 12/30/16 09:52 Dose: Not Given Furosemide (Lasix -) 20 mg PO DAILY [facility] Last Admin: 12/30/16 09:53 Dose: 20 mg Heparin Sodium (Porcine) (Heparin -) 5,000 unit SQ BID [facility] Last Admin: 12/30/16 10:03 Dose: Not Given Sodium Chloride (Normal Saline -) 1,000 mls @ 100 mls/hr IV ASDIR [facility] Last Admin: 12/29/16 09:30 Dose: 100 mls/hr Lorazepam (Ativan -) 1 mg PO TID PRN PRN Reason: ANXIETY Lorazepam (Ativan Injection -) 1 mg IVPUSH Q6H PRN PRN Reason: ANXIETY Midodrine (Proamatine -) 5 mg PO TID-MID [facility] Last Admin: 12/30/16 10:02 Dose: Not Given Nystatin (Mycostatin Cream -) 1 applic TP BID [facility] Last Admin: 12/30/16 10:03 Dose: Not Given - Objective Vital Signs: Vital Signs Temperature 97.7 F 12/30/16 06:50 Pulse Rate 67 12/30/16 06:50 Respiratory Rate 16 12/30/16 06:50 Blood Pressure 92/52 12/30/16 06:50 O2 Sat by Pulse Oximetry (%) 96 12/29/16 09:00 Constitutional: Yes: No Distress Neck: Yes: WNL Cardiovascular: Yes: Regular Rate and Rhythm, S1, S2. No: JVD, Murmur Respiratory: Yes: CTA Bilaterally Gastrointestinal: Yes: Soft Edema: LLE: Trace, RLE: Trace Labs: CBC, BMP 12/29/16 07:35 12/30/16 06:00 INR, PTT INR 1.24 (0.82-1.09) H 12/28/16 09:46 Problem List - Problems (1) Elevated troponin Code(s): R74.8 - ABNORMAL LEVELS OF OTHER SERUM ENZYMES Assessment/Plan 66 year old woman, former smoker, resident of [facility] with a PMHx of metastatic breast cancer to the spine, paraplegia, COPD, pressure ulcers secondary to immobility, peripheral neuropathy, paroxysmal atrial fibrillation admitted 12/28/2016 with low BP while on Midodrine 2.5 mg TID. She was found to have elevated troponin (0.90). Pro-BNP is elevated. ECG showed lateral T wave abnormalities. 1) Low BP -BP improved today and patient feels better sinus rhythm on tele Continue Midodrine to 5 mg TID. Lasix 20 mg PO daily. 2) Elevated troponin without chest pain. It is likely Type II [place], secondary to low BP, decreased coronary perfusion and anemia. Conservative cardiac care. Repeat echocardiogram to reevaluate LV function and segmental wall motion.
[2016-12-30] MEDS: SODIUM CHLORIDE 1,000 ML IV SCH (16:38)
--- NOTE | 2016-12-30 17:57 | PN ---
Progress Note, Physician Chief Complaint: hypotension, positive troponins, weakness History of Present Illness: NAD,in bed seen by cardiology Echo pending BP improved on furosemide 20 mg daily intermittent palpitations - Current Medication List Current Medications: Active Medications Acetaminophen (Tylenol -) 650 mg PO Q4H PRN PRN Reason: PAIN OR TEMP >100.5 F Last Admin: 12/30/16 16:17 Dose: 650 mg Albuterol/Ipratropium (Duoneb -) 1 amp NEB Q6H PRN Arformoterol Tartrate (Brovana (Restricted To Pulmonology/Resp) -) 1 amp NEB BID [facility] Last Admin: 12/30/16 10:36 Dose: 1 amp Ascorbic Acid (Vitamin C -) 250 mg PO BID [facility] Last Admin: 12/30/16 10:02 Dose: Not Given Baclofen (Lioresal -) 10 mg PO BID [facility] Last Admin: 12/30/16 09:53 Dose: 10 mg Citalopram Hydrobromide (Celexa -) 10 mg PO BID [facility] Last Admin: 12/30/16 10:03 Dose: Not Given Collagenase (Santyl -) 1 applic TP DAILY [facility] Last Admin: 12/30/16 10:02 Dose: 1 applic Ferrous Sulfate (Feosol -) 325 mg PO BIDWM [facility] Last Admin: 12/30/16 17:00 Dose: 325 mg Furosemide (Lasix -) 20 mg PO DAILY [facility] Last Admin: 12/30/16 09:53 Dose: 20 mg Heparin Sodium (Porcine) (Heparin -) 5,000 unit SQ BID [facility] Last Admin: 12/30/16 10:03 Dose: Not Given Sodium Chloride (Normal Saline -) 1,000 mls @ 100 mls/hr IV ASDIR [facility] Last Admin: 12/30/16 16:38 Dose: Not Given Lorazepam (Ativan -) 1 mg PO TID PRN PRN Reason: ANXIETY Lorazepam (Ativan Injection -) 1 mg IVPUSH Q6H PRN PRN Reason: ANXIETY Midodrine (Proamatine -) 5 mg PO TID-MID [facility] Last Admin: 12/30/16 17:00 Dose: Not Given Nystatin (Mycostatin Cream -) 1 applic TP BID [facility] Last Admin: 12/30/16 10:03 Dose: Not Given - Objective Vital Signs: Vital Signs Temperature 97.8 F 12/30/16 10:00 Pulse Rate 78 12/30/16 10:00 Respiratory Rate 18 12/30/16 10:00 Blood Pressure 97/52 12/30/16 10:00 O2 Sat by Pulse Oximetry (%) 96 12/30/16 09:00 Constitutional: Yes: Well Nourished, No Distress, Calm Cardiovascular: Yes: Regular Rate and Rhythm Respiratory: Yes: Regular Labs: CBC, BMP 12/29/16 07:35 12/30/16 06:00 INR, PTT INR 1.24 (0.82-1.09) H 12/28/16 09:46 Problem List - Problems (1) Elevated troponin Assessment/Plan: -trending down -likely secondary to decreased perfusion due to hypotension Code(s): R74.8 - ABNORMAL LEVELS OF OTHER SERUM ENZYMES (2) Anemia Assessment/Plan: -iron studies pending -H/H stable -stool ob -hematology consult Code(s): D64.9 - ANEMIA, UNSPECIFIED Qualifiers: Other causes of anemia: chronic disease, neoplastic (3) Atrial fibrillation Code(s): I48.91 - UNSPECIFIED ATRIAL FIBRILLATION Qualifiers: Atrial fibrillation type: paroxysmal Qualified Code(s): I48.0 - Paroxysmal atrial fibrillation (4) COPD (chronic obstructive pulmonary disease) Code(s): J44.9 - CHRONIC OBSTRUCTIVE PULMONARY DISEASE, UNSPECIFIED Qualifiers : COPD type: unspecified COPD Qualified Code(s): J44.9 - Chronic obstructive pulmonary disease, unspecified (5) Hypotension Code(s): I95.9 - HYPOTENSION, UNSPECIFIED Qualifiers: Hypotension type: unspecified hypotension type Qualified Code(s): I95.9 - Hypotension, unspecified (6) Leukocytosis Assessment/Plan: -UC pending -wound culture, acinetobactor, proteus and E. Feacalis in the past -afebrile -monitor, labs in AM Code(s): D72.829 - ELEVATED WHITE BLOOD CELL COUNT, UNSPECIFIED Assessment/Plan Encouraged to let the nursing staff change her as that increases risk for infection See problem list for rest
[2016-12-30] MEDS ORDERED: DOCUSATE SODIUM 100 MG CAPSULE (FP) PO PRN (19:31)
--- NOTE | 2016-12-30 21:44 | CONSULT ---
Consult - text type - Consultation Consultation Note: 66 year old woman, former smoker, resident of [facility] with a PMHx of metastatic breast cancer to the spine, paraplegia, COPD, pressure ulcers secondary to immobility, peripheral neuropathy, paroxysmal atrial fibrillation admitted 12/28/2016 with low BP,weakness, chills Ms. Mcdaniel was admitted with September 2016 with sepsis and December 2016 with low BP. She was been taking Midodrine 2.5 mg TID. She has mild SOB but denies chest pain, palpitation, dizziness, syncope or near syncope. 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[employer]: Yes: Peripheral Neuropathy Cardio/Vascular: Yes: AFIB Pulmonary: Yes: COPD - Past Surgical History Past Surgical History: Yes: Cholecystectomy, Tonsillectomy - Smoking History Smoking history: Former smoker - Allergies Allergies/Adverse Reactions: Allergies Allergy/AdvReac Type Severity Reaction Status Date / Time epinephrine Allergy Verified 12/28/16 09:25 procaine Allergy Verified 12/28/16 09:25 sulfamethoxazole Allergy Verified 12/28/16 09:25 trimethoprim Allergy Verified 12/28/16 09:25 - Home Medications Home Medications: Ambulatory Orders Unobtainable [Unobtainable] 12/28/16 Vital Signs: Last Vital Signs Temp Pulse Resp BP Pulse Ox 97.7 F 81 16 95/61 96 12/31/16 06:00 12/31/16 06:00 12/31/16 06:00 12/31/16 06:00 12/30/16 21:00 Constitutional: Yes: No Distress, Calm, Other (Chronic ill.) Respiratory: Yes: Regular, Rales Gastrointestinal: Yes: Normal Bowel Sounds, Soft Cardiovascular: Yes: Regular Rate and Rhythm Heart Sounds: Yes: S1, S2 Musculoskeletal: Yes: Other Edema: Yes Edema: LLE: Trace, RLE: Trace Peripheral Pulses WNL: Yes Abnormal Lab Results 12/30/16 12/31/16 12/31/16 06:00 06:00 06:00 RBC 3.43 L Hgb 9.1 L Hct 29.4 L MCHC 30.9 L RDW 16.7 H MPV 7.1 L Creatinine 0.3 L D TIBC 191 L AST 11 L ALT 11 L Alkaline Phosphatase 138 H Total Protein 5.7 L Albumin 1.7 L D Vitamin B12 1021 H Home Medication List Medication Instructions Recorded Confirmed Type Unobtainable [Unobtainable] 12/28/16 12/28/16 History Active Medications Generic Name Dose Route Start Last Admin Trade Name Freq PRN Reason Stop Dose Admin Acetaminophen 650 mg 12/28/16 18:53 12/31/16 05:44 Tylenol - PO 650 mg Q4H PRN Administration PAIN OR TEMP >100.5 F Albuterol/Ipratropium 1 amp 12/28/16 18:54 Duoneb - NEB Q6H PRN Arformoterol Tartrate 1 amp 12/29/16 12:00 12/30/16 22:10 Brovana (Restricted To Pulmonology/Resp) - NEB 1 amp BID [facility] Administration Ascorbic Acid 250 mg 12/29/16 13:00 12/30/16 21:27 Vitamin C - PO 250 mg BID [facility] Administration Baclofen 10 mg 12/28/16 23:15 12/30/16 21:24 Lioresal - PO 10 mg BID [facility] Administration Citalopram Hydrobromide 10 mg 12/28/16 23:15 12/30/16 21:24 Celexa - PO Not Given BID [facility] Collagenase 1 applic 12/30/16 10:00 12/30/16 10:02 Santyl - TP 1 applic DAILY [facility] Administration Docusate Sodium 100 mg 12/30/16 19:31 Colace - PO BID PRN CONSTIPATION Ferrous Sulfate 325 mg 12/29/16 17:30 12/30/16 17:00 Feosol - PO 325 mg BIDWM [facility] Administration Furosemide 20 mg 12/29/16 19:15 12/30/16 09:53 Lasix - PO 20 mg DAILY [facility] Administration Heparin Sodium (Porcine) 5,000 unit 12/28/16 22:00 12/30/16 21:24 Heparin - SQ 5,000 unit BID [facility] Administration Lorazepam 1 mg 12/29/16 15:49 Ativan - PO TID PRN ANXIETY Lorazepam 1 mg 12/29/16 15:49 Ativan Injection - IVPUSH Q6H PRN ANXIETY Midodrine 5 mg 12/28/16 18:00 12/30/16 17:00 Proamatine - PO Not Given TID-MID [facility] Nystatin 1 applic 12/28/16 22:00 12/30/16 21:46 Mycostatin Cream - TP Not Given BID [facility] Assessment/Plan 66 year old woman, former smoker, resident of [facility] with a PMHx of metastatic breast cancer to the spine, paraplegia, COPD, pressure ulcers secondary to immobility, peripheral neuropathy, paroxysmal atrial fibrillation admitted 12/28/2016 with low BP, chills, weakness will request wound care consult check cultures PAtient had refused chemo/RT in past per daughter chest wall biopsy ER-70%, PR5%, Her2 neg. maary cancer of ductalphenotype had been on faslodex discussed switching to aromasin ---patient very reluctant to get any therapy. Will continue discussion Anemia---iron studies s/o anemia of chronic disease due to ongoing wounds, metastatic breast cancer on feosol/vit C check stool occult transfuse for hgb <8 or symptomatic
[2016-12-31] MEDS: ACETAMINOPHEN 325 MG TABLET (FP) PO PRN ×4 (05:44→22:15)
[2016-12-31 06:36] LABS: SERUM IRON 28 ug/dL (27-139); TOTAL IRON BINDING CAPACITY 191 ug/dL (250-450); UIBC 163 ug/dL (118-369)
[2016-12-31 07:12] LABS: BASOPHIL 0.7 % (0-2.0); EOSINOPHIL 1.7 % (0-4.5); MCH 26.5 pg (25.7-33.7); MCHC 30.9 g/dl (32.0-36.0); MEAN CELL VOLUME 85.7 fl (80-96); MEAN PLT VOLUME 7.1 fl (7.5-11.1); NEUTROPHILS 77.9 % (42.8-82.8); RDW 16.7 % (11.6-15.6)
[2016-12-31 07:17] LABS: BILIRUBIN,TOTAL 0.4 mg/dL (0.2-1.0); CREATININE 0.3 mg/dL (0.55-1.02); SGOT/AST 11 U/L (15-37); SGPT/ALT 11 U/L (12-78); TOT PROT 5.7 g/dl (6.4-8.2)
[2016-12-31 07:18] LABS: ALBUMIN 1.7 g/dl (3.4-5.0); ANION GAP 9 (8-16); CALCIUM 8.5 mg/dL (8.5-10.1); CO2 32 mmol/L (21-32); GLUCOSE,RANDOM 81 mg/dL (74-106)
[2016-12-31 07:20] LABS: ALK PHOS 138 U/L (45-117); FERRITIN 99.872 ng/ml (6.9-282.5)
--- NOTE | 2016-12-31 08:04 | PN ---
Progress Note, Physician Chief Complaint: SOB continues to improve +good urine output Tele: sinus History of Present Illness: 66 year old woman, former smoker, resident of [facility] with a PMHx of metastatic breast cancer to the spine, paraplegia, COPD, pressure ulcers secondary to immobility, peripheral neuropathy, paroxysmal atrial fibrillation admitted 12/28/2016 with low BP while on Midodrine 2.5 mg TID. She was found to have elevated troponin (0.90). Pro-BNP is elevated. ECG showed lateral T wave abnormalities. - Current Medication List Current Medications: Active Medications Acetaminophen (Tylenol -) 650 mg PO Q4H PRN PRN Reason: PAIN OR TEMP >100.5 F Last Admin: 12/31/16 05:44 Dose: 650 mg Albuterol/Ipratropium (Duoneb -) 1 amp NEB Q6H PRN Arformoterol Tartrate (Brovana (Restricted To Pulmonology/Resp) -) 1 amp NEB BID [facility] Last Admin: 12/30/16 22:10 Dose: 1 amp Ascorbic Acid (Vitamin C -) 250 mg PO BID [facility] Last Admin: 12/30/16 21:27 Dose: 250 mg Baclofen (Lioresal -) 10 mg PO BID [facility] Last Admin: 12/30/16 21:24 Dose: 10 mg Citalopram Hydrobromide (Celexa -) 10 mg PO BID [facility] Last Admin: 12/30/16 21:24 Dose: Not Given Collagenase (Santyl -) 1 applic TP DAILY [facility] Last Admin: 12/30/16 10:02 Dose: 1 applic Docusate Sodium (Colace -) 100 mg PO BID PRN PRN Reason: CONSTIPATION Ferrous Sulfate (Feosol -) 325 mg PO BIDWM [facility] Last Admin: 12/30/16 17:00 Dose: 325 mg Furosemide (Lasix -) 20 mg PO DAILY [facility] Last Admin: 12/30/16 09:53 Dose: 20 mg Heparin Sodium (Porcine) (Heparin -) 5,000 unit SQ BID [facility] Last Admin: 12/30/16 21:24 Dose: 5,000 unit Lorazepam (Ativan -) 1 mg PO TID PRN PRN Reason: ANXIETY Lorazepam (Ativan Injection -) 1 mg IVPUSH Q6H PRN PRN Reason: ANXIETY Midodrine (Proamatine -) 5 mg PO TID-MID [facility] Last Admin: 12/30/16 17:00 Dose: Not Given Nystatin (Mycostatin Cream -) 1 applic TP BID [facility] Last Admin: 12/30/16 21:46 Dose: Not Given - Objective Vital Signs: Vital Signs Temperature 97.7 F 12/31/16 06:00 Pulse Rate 81 12/31/16 06:00 Respiratory Rate 16 12/31/16 06:00 Blood Pressure 95/61 12/31/16 06:00 O2 Sat by Pulse Oximetry (%) 96 12/30/16 21:00 Constitutional: Yes: No Distress Cardiovascular: Yes: Regular Rate and Rhythm, S1, S2. No: JVD, Murmur Respiratory: Yes: Diminished (b/l bases) Gastrointestinal: Yes: Soft Edema: LLE: Trace, RLE: Trace Labs: CBC, BMP 12/31/16 06:00 12/31/16 06:00 INR, PTT INR 1.24 (0.82-1.09) H 12/28/16 09:46 Problem List - Problems (1) Elevated troponin Code(s): R74.8 - ABNORMAL LEVELS OF OTHER SERUM ENZYMES Assessment/Plan 66 year old woman, former smoker, resident of [facility] with a PMHx of metastatic breast cancer to the spine, paraplegia, COPD, pressure ulcers secondary to immobility, peripheral neuropathy, paroxysmal atrial fibrillation admitted 12/28/2016 with low BP while on Midodrine 2.5 mg TID. She was found to have elevated troponin (0.90). Pro-BNP is elevated. ECG showed lateral T wave abnormalities. 1) Low BP -BP improved today and patient feels better sinus rhythm on tele Continue Midodrine to 5 mg TID. Lasix 20 mg PO daily. 2) Elevated troponin without chest pain. It is likely Type II [place], secondary to low BP, decreased coronary perfusion and anemia. Conservative cardiac care. Repeat echocardiogram to reevaluate LV function and segmental wall motion.
[2016-12-31 08:57] LABS: PLATELET ESTIMATE INCREASED (NORMAL)
[2016-12-31] MEDS: ARFORMOTEROL TARTRATE 15 MCG/2 ML VIAL NEB SCH ×2 (10:23→22:44)
[2016-12-31] MEDS: CITALOPRAM HYDROBROMIDE 10 MG TABLET (FP) PO SCH ×2 (10:34→10:41)
[2016-12-31] MEDS: HEPARIN NA (PORCINE) 5,000 UNITS/ML 1ML VIAL SQ SCH ×2 (10:40→22:19)
[2016-12-31] MEDS: NYSTATIN 100,000 UNIT/GM TOPICAL CREAM 15 GM TUBE TP SCH ×2 (10:40→22:18)
[2016-12-31] MEDS: FUROSEMIDE 20 MG TABLET (FP) PO SCH (10:40)
[2016-12-31] MEDS: MIDODRINE HCL 5 MG TABLET PO SCH ×3 (10:40→17:46)
[2016-12-31] MEDS: FERROUS SO4 325 MG TABLET (FP) PO SCH ×2 (10:41→17:46)
[2016-12-31] MEDS: ASCORBIC ACID 250 MG TABLET (FP) PO SCH ×2 (10:41→22:16)
[2016-12-31] MEDS: BACLOFEN 10 MG TABLET (FP) PO SCH ×2 (10:41→22:16)
[2016-12-31] MEDS: COLLAGENASE CLOSTRIDIUM HIST. 30 GRAMS TUBE TP SCH (10:42)
--- NOTE | 2016-12-31 13:22 | PN ---
Progress Note, Physician Chief Complaint: hypotension, positive troponins, weakness History of Present Illness: NAD,in bed seen by cardiology Echo pending BP fluctuating on furosemide 20 mg daily intermittent palpitations refusing celexa, would d/c - Current Medication List Current Medications: Active Medications Acetaminophen (Tylenol -) 650 mg PO Q4H PRN PRN Reason: PAIN OR TEMP >100.5 F Last Admin: 12/31/16 11:23 Dose: 650 mg Albuterol/Ipratropium (Duoneb -) 1 amp NEB Q6H PRN Arformoterol Tartrate (Brovana (Restricted To Pulmonology/Resp) -) 1 amp NEB BID [facility] Last Admin: 12/31/16 10:23 Dose: 1 amp Ascorbic Acid (Vitamin C -) 250 mg PO BID [facility] Last Admin: 12/31/16 10:41 Dose: 250 mg Baclofen (Lioresal -) 10 mg PO BID [facility] Last Admin: 12/31/16 10:41 Dose: 10 mg Citalopram Hydrobromide (Celexa -) 10 mg PO BID [facility] Last Admin: 12/31/16 10:41 Dose: 10 mg Collagenase (Santyl -) 1 applic TP DAILY [facility] Last Admin: 12/31/16 10:42 Dose: 1 applic Docusate Sodium (Colace -) 100 mg PO BID PRN PRN Reason: CONSTIPATION Last Admin: 12/31/16 11:23 Dose: 100 mg Ferrous Sulfate (Feosol -) 325 mg PO BIDWM [facility] Last Admin: 12/31/16 10:41 Dose: 325 mg Furosemide (Lasix -) 20 mg PO DAILY [facility] Last Admin: 12/31/16 10:40 Dose: 20 mg Heparin Sodium (Porcine) (Heparin -) 5,000 unit SQ BID [facility] Last Admin: 12/31/16 10:40 Dose: 5,000 unit Lorazepam (Ativan -) 1 mg PO TID PRN PRN Reason: ANXIETY Lorazepam (Ativan Injection -) 1 mg IVPUSH Q6H PRN PRN Reason: ANXIETY Midodrine (Proamatine -) 5 mg PO TID-MID [facility] Last Admin: 12/31/16 10:40 Dose: 5 mg Nystatin (Mycostatin Cream -) 1 applic TP BID [facility] Last Admin: 12/31/16 10:40 Dose: 1 applic - Objective Vital Signs: Vital Signs Temperature 98.2 F 12/31/16 11:14 Pulse Rate 79 12/31/16 11:18 Respiratory Rate 18 12/31/16 11:18 Blood Pressure 72/54 12/31/16 11:18 O2 Sat by Pulse Oximetry (%) 96 12/30/16 21:00 Constitutional: Yes: Well Nourished, No Distress, Calm Cardiovascular: Yes: Regular Rate and Rhythm Respiratory: Yes: Regular Edema: No Wound/Incision: Yes: Dressing Dry and Intact Neurological: Yes: Alert, Oriented Psychiatric: Yes: Alert, Oriented Labs: CBC, BMP 12/31/16 06:00 12/31/16 06:00 INR, PTT INR 1.24 (0.82-1.09) H 12/28/16 09:46 Problem List - Problems (1) Elevated troponin Assessment/Plan: -trending down -likely secondary to decreased perfusion due to hypotension Code(s): R74.8 - ABNORMAL LEVELS OF OTHER SERUM ENZYMES (2) Atrial fibrillation Assessment/Plan: heparin BID Code(s): I48.91 - UNSPECIFIED ATRIAL FIBRILLATION Qualifiers: Atrial fibrillation type: paroxysmal Qualified Code(s): I48.0 - Paroxysmal atrial fibrillation; I48.0 - Paroxysmal atrial fibrillation; I48.0 - Paroxysmal atrial fibrillation; I48.0 - Paroxysmal atrial fibrillation (3) Anemia Assessment/Plan: -iron studies pending -H/H stable -stool ob -hematology consult on board -on [facility] Code(s): D64.9 - ANEMIA, UNSPECIFIED Qualifiers: Other causes of anemia: chronic disease, neoplastic (4) COPD (chronic obstructive pulmonary disease) Code(s): J44.9 - CHRONIC OBSTRUCTIVE PULMONARY DISEASE, UNSPECIFIED Qualifiers : COPD type: unspecified COPD Qualified Code(s): J44.9 - Chronic obstructive pulmonary disease, unspecified; J44.9 - Chronic obstructive pulmonary disease, unspecified; J44.9 - Chronic obstructive pulmonary disease, unspecified; J44.9 - Chronic obstructive pulmonary disease, unspecified (5) Hypotension Assessment/Plan: midodrine 5 mg po TID seen by cardiology Code(s): I95.9 - HYPOTENSION, UNSPECIFIED Qualifiers: Hypotension type: unspecified hypotension type Qualified Code(s): I95.9 - Hypotension, unspecified; I95.9 - Hypotension, unspecified (6) Leukocytosis Assessment/Plan: -improved -UC negative -wound culture, acinetobactor, proteus and E. Feacalis in the past -afebrile -monitor, labs in AM Code(s): D72.829 - ELEVATED WHITE BLOOD CELL COUNT, UNSPECIFIED (7) Decubital ulcer Assessment/Plan: chronic culture pending ordered procource, zinc and multivitamin to promote healing Code(s): L89.90 - PRESSURE ULCER OF UNSPECIFIED SITE, UNSPECIFIED STAGE Assessment/Plan Encouraged to let the nursing staff change her as that increases risk for infection See problem list for rest
[2016-12-31] MEDS: AMINO ACIDS/PROTEIN HYDROLYS 30 ML LIQUID.PKT PO SCH (17:44)
[2016-12-31] MEDS ORDERED: PT OWN MED DRAWER 7, Y5N ONE (21:29)
[2016-12-31] MEDS: ZINC SULFATE 220 MG CAPSULE (FP) PO SCH ×2 (22:18→22:48)
[2017-01-01] MEDS: ACETAMINOPHEN 325 MG TABLET (FP) PO PRN ×4 (06:42→19:05)
[2017-01-01 07:27] LABS: BASOPHIL 0.3 % (0-2.0); EOSINOPHIL 1.1 % (0-4.5); MCH 25.9 pg (25.7-33.7); MCHC 30.2 g/dl (32.0-36.0); MEAN CELL VOLUME 85.8 fl (80-96); MEAN PLT VOLUME 7.4 fl (7.5-11.1); NEUTROPHILS 84.1 % (42.8-82.8); PLATELET COUNT 465 K/MM3 (134-434); RDW 16.6 % (11.6-15.6); WHITE BLOOD COUNT 12.9 K/mm3 (4.0-10.0)
[2017-01-01 08:00] LABS: ALBUMIN 1.6 g/dl (3.4-5.0); ALK PHOS 138 U/L (45-117); ANION GAP 6 (8-16); BILIRUBIN,TOTAL 0.2 mg/dL (0.2-1.0); CALCIUM 8.7 mg/dL (8.5-10.1); CO2 34 mmol/L (21-32); CREATININE 0.2 mg/dL (0.55-1.02); GLUCOSE,RANDOM 83 mg/dL (74-106); SGOT/AST 14 U/L (15-37); SGPT/ALT 11 U/L (12-78); TOT PROT 5.9 g/dl (6.4-8.2)
[2017-01-01] MEDS: AMINO ACIDS/PROTEIN HYDROLYS 30 ML LIQUID.PKT PO SCH ×3 (08:21→22:11)
[2017-01-01] MEDS: ARFORMOTEROL TARTRATE 15 MCG/2 ML VIAL NEB SCH ×2 (10:25→22:57)
[2017-01-01] MEDS: FERROUS SO4 325 MG TABLET (FP) PO SCH ×2 (10:42→17:29)
[2017-01-01] MEDS: ASCORBIC ACID 250 MG TABLET (FP) PO SCH ×2 (10:42→22:07)
[2017-01-01] MEDS: ZINC SULFATE 220 MG CAPSULE (FP) PO SCH ×2 (10:42→22:07)
[2017-01-01] MEDS: HEPARIN NA (PORCINE) 5,000 UNITS/ML 1ML VIAL SQ SCH ×2 (10:42→22:08)
[2017-01-01] MEDS: BACLOFEN 10 MG TABLET (FP) PO SCH ×2 (10:42→22:07)
[2017-01-01] MEDS: FUROSEMIDE 20 MG TABLET (FP) PO SCH (10:42)
[2017-01-01] MEDS: MULTIVITAMINS (DAILY MVI) TABLET (FP) PO SCH (10:42)
[2017-01-01] MEDS: MIDODRINE HCL 5 MG TABLET PO SCH ×3 (10:42→17:29)
[2017-01-01] MEDS: NYSTATIN 100,000 UNIT/GM TOPICAL CREAM 15 GM TUBE TP SCH ×2 (10:44→22:11)
[2017-01-01] MEDS: COLLAGENASE CLOSTRIDIUM HIST. 30 GRAMS TUBE TP SCH (10:44)
[2017-01-01] MEDS ORDERED: IPRATROPIUM BR 0.02% 0.5 MG/2.5 ML VIAL.NEB. NEB ONE (16:52)
--- NOTE | 2017-01-01 17:04 | PN ---
Progress Note (short form) - Note Progress Note: PULMONARY CONSULTATION DICTATED 01/01/17 IMP HYPOTENSION CHF COPD METASTATIC BREAST CA PARAPLEGIA AFIB PLAN O2 INHALED BRONCHODILATORS LASIX MIDODRINE F/U CHEST X-RAY DR FOUNTAIN Problem List - Problems (1) Decubital ulcer Code(s): L89.90 - PRESSURE ULCER OF UNSPECIFIED SITE, UNSPECIFIED STAGE (2) Anemia Code(s): D64.9 - ANEMIA, UNSPECIFIED Qualifiers: Other causes of anemia: chronic disease, neoplastic (3) Atrial fibrillation Code(s): I48.91 - UNSPECIFIED ATRIAL FIBRILLATION Qualifiers: Atrial fibrillation type: paroxysmal Qualified Code(s): I48.0 - Paroxysmal atrial fibrillation; I48.0 - Paroxysmal atrial fibrillation; I48.0 - Paroxysmal atrial fibrillation; I48.0 - Paroxysmal atrial fibrillation (4) Breast CA Code(s): C50.919 - MALIGNANT NEOPLASM OF UNSP SITE OF UNSPECIFIED FEMALE BREAST Qualifiers: Estrogen receptor status: unspecified Patient sex: female Laterality: unspecified laterality (5) COPD (chronic obstructive pulmonary disease) Code(s): J44.9 - CHRONIC OBSTRUCTIVE PULMONARY DISEASE, UNSPECIFIED Qualifiers : COPD type: unspecified COPD Qualified Code(s): J44.9 - Chronic obstructive pulmonary disease, unspecified; J44.9 - Chronic obstructive pulmonary disease, unspecified; J44.9 - Chronic obstructive pulmonary disease, unspecified; J44.9 - Chronic obstructive pulmonary disease, unspecified (6) Hypotension Code(s): I95.9 - HYPOTENSION, UNSPECIFIED Qualifiers: Hypotension type: unspecified hypotension type Qualified Code(s): I95.9 - Hypotension, unspecified; I95.9 - Hypotension, unspecified (7) Metastatic breast cancer Code(s): C50.919 - MALIGNANT NEOPLASM OF UNSP SITE OF UNSPECIFIED FEMALE BREAST (8) Spinal cord compression due to 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
[2017-01-01] MEDS ORDERED: IPRATROPIUM BR 0.02% 0.5 MG/2.5 ML VIAL.NEB. NEB PRN (17:05)
--- NOTE | 2017-01-01 17:23 | PN ---
Progress Note, Physician Chief Complaint: No new complaints History of Present Illness: 66 year old woman, former smoker, resident of [facility] with a PMHx of metastatic breast cancer to the spine, paraplegia, COPD, pressure ulcers secondary to immobility, peripheral neuropathy, paroxysmal atrial fibrillation admitted 12/28/2016 with low BP while on Midodrine 2.5 mg TID. She was found to have elevated troponin (0.90). Pro-BNP is elevated. ECG showed lateral T wave abnormalities. - Current Medication List Current Medications: Active Medications Acetaminophen (Tylenol -) 650 mg PO Q4H PRN PRN Reason: PAIN OR TEMP >100.5 F Last Admin: 01/01/17 15:10 Dose: 650 mg Amino Acids (Prosource No Carb Liquid Pkt) 30 ml PO TID [facility] Last Admin: 01/01/17 14:34 Dose: 30 ml Arformoterol Tartrate (Brovana (Restricted To Pulmonology/Resp) -) 1 amp NEB BID [facility] Last Admin: 01/01/17 10:25 Dose: 1 amp Ascorbic Acid (Vitamin C -) 250 mg PO BID [facility] Last Admin: 01/01/17 10:42 Dose: 250 mg Baclofen (Lioresal -) 10 mg PO BID [facility] Last Admin: 01/01/17 10:42 Dose: 10 mg Collagenase (Santyl -) 1 applic TP DAILY [facility] Last Admin: 01/01/17 10:44 Dose: 1 applic Docusate Sodium (Colace -) 100 mg PO BID PRN PRN Reason: CONSTIPATION Last Admin: 12/31/16 11:23 Dose: 100 mg Ferrous Sulfate (Feosol -) 325 mg PO BIDWM [facility] Last Admin: 01/01/17 10:42 Dose: 325 mg Furosemide (Lasix -) 20 mg PO DAILY [facility] Last Admin: 01/01/17 10:42 Dose: 20 mg Heparin Sodium (Porcine) (Heparin -) 5,000 unit SQ BID [facility] Last Admin: 01/01/17 10:42 Dose: 5,000 unit Ipratropium [place] (Atrovent 0.02% Nebulizer -) 1 amp NEB Q6H PRN PRN Reason: DYSPEPSIA Stop: 01/08/17 17:05 Lorazepam (Ativan -) 1 mg PO TID PRN PRN Reason: ANXIETY Lorazepam (Ativan Injection -) 1 mg IVPUSH Q6H PRN PRN Reason: ANXIETY Midodrine (Proamatine -) 5 mg PO TID-MID [facility] Last Admin: 01/01/17 14:34 Dose: 5 mg Multivitamins/Minerals/Vitamin C (Tab-A-Vit -) 1 tab PO DAILY [facility] Last Admin: 01/01/17 10:42 Dose: 1 tab Nystatin (Mycostatin Cream -) 1 applic TP BID [facility] Last Admin: 01/01/17 10:44 Dose: 1 applic Zinc Sulfate (Orazinc -) 220 mg PO BID [facility] Last Admin: 01/01/17 10:42 Dose: 220 mg - Objective Vital Signs: Vital Signs Temperature 98.1 F 01/01/17 14:38 Pulse Rate 94 H 01/01/17 14:38 Respiratory Rate 18 01/01/17 14:38 Blood Pressure 84/42 01/01/17 14:38 O2 Sat by Pulse Oximetry (%) 95 01/01/17 10:14 Constitutional: Yes: No Distress HENT: Yes: WNL Cardiovascular: Yes: Regular Rate and Rhythm (NL S1 S2 No [facility]) Gastrointestinal: Yes: Soft Extremities: Yes: WNL (Trace edema) Labs: CBC, BMP 01/01/17 06:00 01/01/17 06:00 INR, PTT INR 1.24 (0.82-1.09) H 12/28/16 09:46 Assessment/Plan 66 year old woman, former smoker, resident of [facility] with a PMHx of metastatic breast cancer to the spine, paraplegia, COPD, pressure ulcers secondary to immobility, peripheral neuropathy, paroxysmal atrial fibrillation admitted 12/28/2016 with low BP while on Midodrine 2.5 mg TID. She was found to have elevated troponin (0.90). Pro-BNP is elevated. ECG showed lateral T wave abnormalities. Low BP Continue Midodrine to 5 mg TID. Lasix 20 mg PO daily. 2) Elevated troponin without chest pain. It is likely Type II [place], secondary to low BP, decreased coronary perfusion and anemia. Toponin level trending down Conservative cardiac care. Repeat echocardiogram to reevaluate LV function and segmental wall motion.
--- NOTE | 2017-01-01 20:00 | PN ---
Progress Note, Physician Chief Complaint: DAUGHTER BEDSIDE FEELING BETTER NERVOUS - Current Medication List Current Medications: Active Medications Acetaminophen (Tylenol -) 650 mg PO Q4H PRN PRN Reason: PAIN OR TEMP >100.5 F Last Admin: 01/01/17 19:05 Dose: 650 mg Amino Acids (Prosource No Carb Liquid Pkt) 30 ml PO TID [facility] Last Admin: 01/01/17 14:34 Dose: 30 ml Arformoterol Tartrate (Brovana (Restricted To Pulmonology/Resp) -) 1 amp NEB BID [facility] Last Admin: 01/01/17 10:25 Dose: 1 amp Ascorbic Acid (Vitamin C -) 250 mg PO BID [facility] Last Admin: 01/01/17 10:42 Dose: 250 mg Baclofen (Lioresal -) 10 mg PO BID [facility] Last Admin: 01/01/17 10:42 Dose: 10 mg Collagenase (Santyl -) 1 applic TP DAILY [facility] Last Admin: 01/01/17 10:44 Dose: 1 applic Docusate Sodium (Colace -) 100 mg PO BID PRN PRN Reason: CONSTIPATION Last Admin: 12/31/16 11:23 Dose: 100 mg Ferrous Sulfate (Feosol -) 325 mg PO BIDWM [facility] Last Admin: 01/01/17 17:29 Dose: 325 mg Furosemide (Lasix -) 20 mg PO DAILY [facility] Last Admin: 01/01/17 10:42 Dose: 20 mg Heparin Sodium (Porcine) (Heparin -) 5,000 unit SQ BID [facility] Last Admin: 01/01/17 10:42 Dose: 5,000 unit Ipratropium [place] (Atrovent 0.02% Nebulizer -) 1 amp NEB Q6H PRN PRN Reason: DYSPEPSIA Stop: 01/08/17 17:05 Last Admin: 01/01/17 16:40 Dose: 1 amp Lorazepam (Ativan -) 1 mg PO TID PRN PRN Reason: ANXIETY Lorazepam (Ativan Injection -) 1 mg IVPUSH Q6H PRN PRN Reason: ANXIETY Midodrine (Proamatine -) 5 mg PO TID-MID [facility] Last Admin: 01/01/17 17:29 Dose: 5 mg Multivitamins/Minerals/Vitamin C (Tab-A-Vit -) 1 tab PO DAILY [facility] Last Admin: 01/01/17 10:42 Dose: 1 tab Nystatin (Mycostatin Cream -) 1 applic TP BID [facility] Last Admin: 01/01/17 10:44 Dose: 1 applic Zinc Sulfate (Orazinc -) 220 mg PO BID [facility] Last Admin: 01/01/17 10:42 Dose: 220 mg - Objective Vital Signs: Vital Signs Temperature 99 F 01/01/17 17:57 Pulse Rate 85 01/01/17 17:57 Respiratory Rate 20 01/01/17 17:57 Blood Pressure 96/60 01/01/17 17:57 O2 Sat by Pulse Oximetry (%) 95 01/01/17 10:14 Constitutional: Yes: Mild Distress Eyes: Yes: WNL HENT: Yes: WNL Neck: Yes: WNL Cardiovascular: Yes: Pulse Irregular Respiratory: Yes: WNL Gastrointestinal: Yes: WNL Genitourinary: Yes: Incontinence Musculoskeletal: Yes: Muscle Weakness Extremities: Yes: WNL Edema: No Peripheral Pulses WNL: Yes Integumentary: Yes: WNL Wound/Incision: Yes: Clean/Dry Neurological: Yes: Pre-Existing Deficit ...Motor Strength: LLE, RLE Psychiatric: Yes: WNL Labs: CBC, BMP 01/01/17 06:00 01/01/17 06:00 INR, PTT INR 1.24 (0.82-1.09) H 12/28/16 09:46 Problem List - Problems (1) Decubital ulcer Code(s): L89.90 - PRESSURE ULCER OF UNSPECIFIED SITE, UNSPECIFIED STAGE Qualifiers: Pressure ulcer location: sacral region Pressure ulcer stage: stage 4 Qualified Code(s): L89.154 - Pressure ulcer of sacral region, stage 4; L89.154 - Pressure ulcer of sacral region, stage 4; L89.154 - Pressure ulcer of sacral region, stage 4; L89.154 - Pressure ulcer of sacral region, stage 4 (2) Elevated troponin Code(s): R74.8 - ABNORMAL LEVELS OF OTHER SERUM ENZYMES (3) Leukocytosis Code(s): D72.829 - ELEVATED WHITE BLOOD CELL COUNT, UNSPECIFIED (4) Anemia Code(s): D64.9 - ANEMIA, UNSPECIFIED Qualifiers: Other causes of anemia: chronic disease, neoplastic (5) Atrial fibrillation Code(s): I48.91 - UNSPECIFIED ATRIAL FIBRILLATION Qualifiers: Atrial fibrillation type: paroxysmal Qualified Code(s): I48.0 - Paroxysmal atrial fibrillation; I48.0 - Paroxysmal atrial fibrillation; I48.0 - Paroxysmal atrial fibrillation; I48.0 - Paroxysmal atrial fibrillation (6) Breast CA Code(s): C50.919 - MALIGNANT NEOPLASM OF UNSP SITE OF UNSPECIFIED FEMALE BREAST Qualifiers: Estrogen receptor status: unspecified Patient sex: female Laterality: unspecified laterality (7) COPD (chronic obstructive pulmonary disease) Code(s): J44.9 - CHRONIC OBSTRUCTIVE PULMONARY DISEASE, UNSPECIFIED Qualifiers : COPD type: unspecified COPD Qualified Code(s): J44.9 - Chronic obstructive pulmonary disease, unspecified; J44.9 - Chronic obstructive pulmonary disease, unspecified; J44.9 - Chronic obstructive pulmonary disease, unspecified; J44.9 - Chronic obstructive pulmonary disease, unspecified (8) Spinal cord compression due to 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 (9) Thoracic spine tumor Code(s): D49.2 - NEOPLASM OF UNSP BEHAVIOR OF BONE, SOFT TISSUE, AND SKIN Assessment/Plan S/P [place] CORONARY SYNDROME ASSESS WITH ECHO TOMORROW CONSERVATIVE MANAGEMENT CARDIOLOGY EVAL APPRECIATED NO SIGNIFICANT ALARMS ON TELE LABS REVIEWED CHRONIC ANEMIA DC PLANNING TOMORROW
[2017-01-01] MEDS ORDERED: PT OWN MED DRAWER 7, Y5N ONE (21:51)
--- NOTE | 2017-01-01 22:19 | PN ---
Progress Note (short form) - Note Progress Note: Patient seen and examined c/o weakness No focal complaints AFVSS frail/cachectic Cor: RSR, No murmurs, No gallops Lungs: Clear to P&A Abd: Soft, Normal bowel sounds, No organomegaly Ext:No significant edema Abnormal Lab Results 01/01/17 01/01/17 06:00 06:00 WBC 12.9 H RBC 3.35 L Hgb 8.7 L Hct 28.7 L MCHC 30.2 L RDW 16.6 H Plt Count 465 H MPV 7.4 L Neutrophils % 84.1 H Carbon Dioxide 34 H Anion Gap 6 L Creatinine 0.2 L D AST 14 L D ALT 11 L Alkaline Phosphatase 138 H Total Protein 5.9 L Albumin 1.6 L Home Medication List Medication Instructions Recorded Confirmed Type Unobtainable [Unobtainable] 12/28/16 12/28/16 History Active Medications Generic Name Dose Route Start Last Admin Trade Name Freq PRN Reason Stop Dose Admin Acetaminophen 650 mg 12/28/16 18:53 01/02/17 01:12 Tylenol - PO 650 mg Q4H PRN Administration PAIN OR TEMP >100.5 F Amino Acids 30 ml 01/01/17 14:00 01/01/17 22:11 Prosource No Carb Liquid Pkt PO 30 ml TID SONI Administration Arformoterol Tartrate 1 amp 12/29/16 12:00 01/01/17 22:57 Brovana (Restricted To Pulmonology/Resp) - NEB Not Given BID SONI Ascorbic Acid 250 mg 12/29/16 13:00 01/01/17 22:07 Vitamin C - PO 250 mg BID SONI Administration Baclofen 10 mg 12/28/16 23:15 01/01/17 22:07 Lioresal - PO 10 mg BID SONI Administration Collagenase 1 applic 12/30/16 10:00 01/01/17 10:44 Santyl - TP 1 applic DAILY SONI Administration Docusate Sodium 100 mg 12/30/16 19:31 12/31/16 11:23 Colace - PO 100 mg BID PRN Administration CONSTIPATION Ferrous Sulfate 325 mg 12/29/16 17:30 01/01/17 17:29 Feosol - PO 325 mg BIDWM SONI Administration Furosemide 20 mg 12/29/16 19:15 01/01/17 10:42 Lasix - PO 20 mg DAILY SONI Administration Heparin Sodium (Porcine) 5,000 unit 12/28/16 22:00 01/01/17 22:08 Heparin - SQ Not Given BID SONI Ipratropium [place] 1 amp 01/01/17 17:05 01/01/17 16:40 Atrovent 0.02% Nebulizer - NEB 01/08/17 17:05 1 amp Q6H PRN Administration DYSPEPSIA Lorazepam 1 mg 12/29/16 15:49 Ativan - PO TID PRN ANXIETY Lorazepam 1 mg 12/29/16 15:49 Ativan Injection - IVPUSH Q6H PRN ANXIETY Midodrine 5 mg 12/28/16 18:00 01/01/17 17:29 Proamatine - PO 5 mg TID-MID SONI Administration Multivitamins/Minerals/Vitamin C 1 tab 01/01/17 10:00 01/01/17 10:42 Tab-A-Vit - PO 1 tab DAILY [facility]ONI Administration Nystatin 1 applic 12/28/16 22:00 01/01/17 22:11 Mycostatin Cream - TP 1 applic BID [facility]ONI Administration Zinc Sulfate 220 mg 12/31/16 22:00 01/01/17 22:07 Orazinc - PO 220 mg BID [facility]ONI Administration A/P 66 year old woman, former smoker, resident of [facility] with a PMHx of metastatic breast cancer to the spine, paraplegia, COPD, pressure ulcers secondary to immobility, peripheral neuropathy, paroxysmal atrial fibrillation admitted 12/28/2016 with low BP, chills, weakness , NSTEMI Breast cancer PAtient had refused chemo/RT in past per daughter chest wall biopsy ER-70%, PR5%, Her2 neg. maary cancer of ductalphenotype had been on faslodex discussed switching to aromasin ---patient very reluctant to get any therapy. Will continue discussion Anemia---iron studies s/o anemia of chronic disease due to ongoing wounds, metastatic breast cancer on feosol/vit C check stool occult transfuse for hgb <8 or symptomatic
[2017-01-02] MEDS: ACETAMINOPHEN 325 MG TABLET (FP) PO PRN ×2 (01:12→15:24)
[2017-01-02] MEDS: AMINO ACIDS/PROTEIN HYDROLYS 30 ML LIQUID.PKT PO SCH ×2 (06:47→13:48)
--- NOTE | 2017-01-02 08:19 | DS ---
Physical Examination Vital Signs: Vital Signs Temperature 98.2 F 01/02/17 06:00 Pulse Rate 78 01/02/17 06:00 Respiratory Rate 18 01/02/17 06:00 Blood Pressure 102/58 01/02/17 06:00 O2 Sat by Pulse Oximetry (%) 95 01/01/17 21:00 Constitutional: Yes: Mild Distress Eyes: Yes: WNL HENT: Yes: WNL Neck: Yes: WNL Cardiovascular: Yes: Pulse Irregular Respiratory: Yes: WNL Gastrointestinal: Yes: WNL Renal/: Yes: WNL, Incontinence Musculoskeletal: Yes: Muscle Weakness Extremities: Yes: Deformity Edema: No Peripheral Pulses WNL: Yes Integumentary: Yes: Pressure Ulcer Wound/Incision: Yes: Dressing Dry and Intact Neurological: Yes: Pre-Existing Deficit ...Motor Strength: LLE, RLE Psychiatric: Yes: Other Labs: CBC, BMP 01/01/17 06:00 01/01/17 06:00 Discharge Summary Reason For Visit: ELEVATED TROPONIN LEVEL Current Active Problems Decubital ulcer (Acute) Elevated troponin (Acute) Leukocytosis (Acute) Procedures: Principal: echo Other Procedures: admitted for acute coronary syndrome UT and treated on telemetry conservatively Condition: Guarded - Instructions Diet, Activity, Other Instructions: dysphagia precautions wound care Referrals: Rajesh Marrero MD [Primary Care Provider] - Disposition: INTERMEDIATE FACILITY - Home Medications Comprehensive Discharge Medication List: Ambulatory Orders Acetaminophen [Tylenol .Regular Strength -] 650 mg PO Q4H PRN #0 tablet Amino Acids/Protein Hydrolys [Prosource No Carb Liquid Pkt] 30 ml PO TID packet 01/02/17 Arformoterol Tartrate [Brovana -] 1 amp NEB BID amp 01/02/17 Ascorbic Acid [Vitamin C -] 250 mg PO BID tablet 01/02/17 Baclofen [Lioresal -] 10 mg PO BID tablet 01/02/17 Collagenase Clostridium Hist. [Santyl -] 1 applic TP DAILY tube 01/02/17 Furosemide [Lasix -] 20 mg PO DAILY tablet 01/02/17 Ipratropium 0.02% Nebulizer [Atrovent 0.02% Nebulizer -] 1 amp NEB Q6H PRN #0 amp 01/02/17 Lorazepam [Ativan] 1 mg PO TID PRN #0 tablet MDD 3 01/02/17 Midodrine HCl [Proamatine -] 5 mg PO TID-MID tablet 01/02/17 Multivitamins [Multivit ([facility] Formulary)] 1 tab PO DAILY tab 01/02/17 Nystatin Cream [Mycostatin Cream -] 1 applic TP BID applic 01/02/17
[2017-01-02] MEDS: FERROUS SO4 325 MG TABLET (FP) PO SCH (08:42)
[2017-01-02] MEDS ORDERED: PT OWN MED DRAWER 7, Y5N ONE ×2 (09:21→13:43)
[2017-01-02] MEDS: HEPARIN NA (PORCINE) 5,000 UNITS/ML 1ML VIAL SQ SCH (09:24)
[2017-01-02] MEDS: NYSTATIN 100,000 UNIT/GM TOPICAL CREAM 15 GM TUBE TP SCH (09:30)
[2017-01-02] MEDS: MIDODRINE HCL 5 MG TABLET PO SCH ×2 (09:30→13:48)
[2017-01-02] MEDS: ZINC SULFATE 220 MG CAPSULE (FP) PO SCH (09:30)
[2017-01-02] MEDS: FUROSEMIDE 20 MG TABLET (FP) PO SCH (09:30)
[2017-01-02] MEDS: ASCORBIC ACID 250 MG TABLET (FP) PO SCH (09:30)
[2017-01-02] MEDS: BACLOFEN 10 MG TABLET (FP) PO SCH (09:30)
[2017-01-02] MEDS: COLLAGENASE CLOSTRIDIUM HIST. 30 GRAMS TUBE TP SCH (09:31)
[2017-01-02] MEDS: MULTIVITAMINS (DAILY MVI) TABLET (FP) PO SCH (09:31)
[2017-01-02] MEDS: ARFORMOTEROL TARTRATE 15 MCG/2 ML VIAL NEB SCH (10:20)
--- NOTE | 2017-01-02 12:05 | PN ---
Progress Note (short form) - Note Progress Note: Wound Care Consult - Dr. Luis Garcia 66 yo female well known to our service. Called to evaluate her wounds. Patient states they just changed the dressings and that they are healing nicely albeit slowly though. States she is getting discharged today. She REFUSES to let us examine her wounds to assess their progression. Patient is instructed to follow-up with Dr. Garcia in the [facility] for continued out- patient care. Above discussed with Dr. Garcia and agrees.
[2017-01-02 14:15] VITALS: BP 95/71; PULSE 107; TEMP 98.8
--- NOTE | 2017-01-03 13:37 | CONS ---
DATE OF CONSULTATION: 01/01/2017 REFERRING PHYSICIAN: Rajesh Marrero MD The patient is a 66-year-old white female known to me from previous hospitalization with past medical history of COPD on O2, halfway resident, history of metastatic breast CA, PAF self-converted to normal sinus rhythm, history of pressure ulcers secondary to immobility, history of metastases to spine, paraplegia admitted to [facility] on December 28 secondary to hypotension. Patient was started on midodrine on admission with some improvement. She also complained of increasing shortness of breath, chest congestion, and weakness. The patient has a history of COPD, longstanding history of tobacco use, approximately 1 pack per day for many years, quit 4 years ago. There is no history of occupational exposure to chemicals or fumes. She has chest congestion, has a cough which is nonproductive. Denies any fevers or hemoptysis. PAST MEDICAL HISTORY: Again includes mastectomy, atrial septal defect repair in 1962, COPD on O2, paraplegia, metastatic breast CA with metastases to the spine, pressure ulcers secondary to immobility, peripheral neuropathy. CURRENT MEDICATIONS: Include , Tylenol, heparin, Ativan, DuoNeb, Brovana, Colace, , Lasix, , Santyl, Orazinc, and Mycostatin. REVIEW OF SYSTEMS: Positive for congestion. Positive cough. No fever. No chills. Positive weakness. No chest pain. No palpitations. No abdominal pain. PHYSICAL EXAMINATION: General: The patient is a chronically ill-appearing white female, well developed, thin, awake, alert, in no acute distress. Vital Signs: She is currently afebrile. Blood pressure is 84/42, respiratory rate is 18, O2 saturation is 97% on 2 L. HEENT: Normocephalic, atraumatic. Neck: Supple. Heart: Regular, S1, S2. Chest: Scattered bilateral rhonchi. Abdomen: Soft. Bowel sounds are positive. Extremities: No cyanosis or edema. LABORATORIES: WBCs 12.9, hemoglobin 8.7, hematocrit 28.7 with a platelet count of 465,000. Chemistries: BUN 14, creatinine 0.2, albumin 1.6. Chest x-ray: Prominent mediastinum and mild congestion bilaterally. IMPRESSION: 1. Dyspnea secondary to multiple factors, combination of: a. Chronic obstructive pulmonary disease. b. Congestive heart failure. 2. Hypotension. 3. Metastatic breast cancer. 4. Paraplegia. 5. Anemia. PLAN: O2, inhaled bronchodilators, Lasix p.r.n., followup chest x-ray. Monitor hemoglobin and hematocrit. Transfuse if patient's hemoglobin drops below 8 or patient progressively more symptomatic. Chloe LUTHER/[id number]
== END 2017-01-02 16:15 | DRG 280 ==
LOC: JER 09:16 → JERBED 11:50 → J4S 14:09
PROVIDERS: ADMIT Family Medicine; ATTEND Family Medicine
DX: I21.A1 Myocardial infarction type 2 (principal); L89.154 Pressure ulcer of sacral region, stage 4; G82.20 Paraplegia, unspecified; G95.20 Unspecified cord compression; C79.51 Secondary malignant neoplasm of bone; Z68.1 Body mass index [BMI] 19.9 or less, adult; C50.919 Malignant neoplasm of unspecified site of unspecified female breast; I95.89 Other hypotension; J44.9 Chronic obstructive pulmonary disease, unspecified; G62.89 Other specified polyneuropathies; F41.8 Other specified anxiety disorders; R74.8 Abnormal levels of other serum enzymes; I48.0 Paroxysmal atrial fibrillation; R00.0 Tachycardia, unspecified; D72.829 Elevated white blood cell count, unspecified; D63.8 Anemia in other chronic diseases classified elsewhere; Z87.891 Personal history of nicotine dependence; Z90.13 Acquired absence of bilateral breasts and nipples; Z91.14 Patient's other noncompliance with medication regimen
CPT/HCPCS: 36415; 71010-TC; 80053; 81003; 81015; 82607; 82728; 82746; 83540; 83550; 83605; 83690; 83735; 83880; 84484; 85025; 85027; 85610; 85730; 87040; 87070; 87086; 87186; 87205; 93005; 93010; 93306-TC; 94640; 99285-25; J0475; J1644

== ENCOUNTER 2017-01-19 12:04 | Emergency (ER) | payer OTHER ==
--- NOTE | 2017-01-19 12:16 | PDOC ---
History of Present Illness - General History Source: Patient Exam Limitations: No Limitations - History of Present Illness Initial Comments: 01/19/17 12:36 66 year old female, with PMH of metastatic breast CA with mets to the spine, paraplegia, pressure ulcers secondary to immobility, peripheral neuropathy, and Afib, who presents to the emergency room from [facility] for a blood transfusion. The patient was told that she her hemoglobin was extremely low and they sent her to the emergency room. She states that she has been more tired than usual, but has no complaints otherwise. She notes that she has multiple ulcers on her buttocks. She is not complaining of any pain at this time. Denies lightheadedness, headache. Denies fever, chills, nausea, vomiting, diarrhea, constipation. Denies abdominal pain. Denies changes in vision. Allergies: epinephrine, procaine, sulfamethoxazole trimethoprim Surgical hx: mastectomy, Atrial septal defect repair 1962, cholecystectomy, tonsillectomy PCP: Dr. 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) CVA: (Paraplegia) COPD: Yes Diabetes: No (afib hx) Psychiatric Problems: Yes (ANXIETY) - Surgical History Cardiac Surgery: Yes (AAtrial septal defect repair 1962) - Suicide/Smoking/Psychosocial Hx Smoking History: Former smoker Have you smoked in the past 12 months: Yes Number of Cigarettes Smoked Daily: 4 If you are a former smoker, when did you quit?: 09/19/2016 'Breaking Loose' booklet given: 12/28/16 Hx Alcohol Use: No Drug/Substance Use Hx: No Substance Use Type: None Hx Substance Use Treatment: No <Prisca Cano - Last Filed: 01/19/17 16:47> - Past Medical History Allergies/Adverse Reactions: Allergies Allergy/AdvReac Type Severity Reaction Status Date / Time epinephrine Allergy Verified 01/19/17 13:33 procaine Allergy Verified 01/19/17 13:33 sulfamethoxazole Allergy Verified 01/19/17 13:33 trimethoprim Allergy Verified 01/19/17 13:33 Home Medications: Ambulatory Orders Acetaminophen [Tylenol .Regular Strength -] 650 mg PO Q4H PRN #0 tablet Collagenase Clostridium Hist. [Santyl -] 1 applic TP DAILY tube 01/02/17 Ipratropium 0.02% Nebulizer [Atrovent 0.02% Nebulizer -] 1 amp NEB Q6H PRN #0 amp 01/02/17 Multivitamins [Multivit ([facility] Formulary)] 1 tab PO DAILY tab 01/02/17 Amino Acids/Protein Hydrolys [Pro-Stat Profile Liquid] 30 ml PO BID 01/19/17 Ascorbic Acid [Vitamin C -] 500 mg PO DAILY 01/19/17 Baclofen 10 mg PO BID 01/19/17 Midodrine HCl [Proamatine -] 5 mg PO TID 01/19/17 Zinc Sulfate 220 mg PO DAILY 01/19/17 Review of Systems - Review of Systems Able to Perform ROS?: Yes Comments:: 01/19/17 12:37 GENERAL/CONSTITUTIONAL: +tired. No fever or chills. No weakness. HEAD, EYES, EARS, NOSE AND THROAT: No change in vision. No ear pain or discharge. No sore throat. GASTROINTESTINAL: No nausea, vomiting, diarrhea or constipation. GENITOURINARY: No dysuria, frequency, or change in urination. CARDIOVASCULAR: No chest pain or shortness of breath. RESPIRATORY: No cough, wheezing, or hemoptysis. MUSCULOSKELETAL: No joint or muscle swelling or pain. No neck or back pain. SKIN: No rash NEUROLOGIC: No headache, vertigo, loss of consciousness, or change in strength/ sensation. ENDOCRINE: No increased thirst. No abnormal weight change. HEMATOLOGIC/LYMPHATIC: No anemia, easy bleeding, or history of blood clots. ALLERGIC/IMMUNOLOGIC: No hives or skin allergy. <Sabra Reece - Last Filed: 01/19/17 14:25> *Physical Exam - Vital Signs Last Vital Signs Temp Pulse Resp BP Pulse Ox 97.4 F L 96 H 93/66 100 01/19/17 12:13 01/19/17 12:13 01/19/17 12:13 01/19/17 12:13 - Physical Exam Comments: 01/19/17 12:52 GENERAL: Awake, alert, and fully oriented, in no acute distress HEAD: No signs of trauma EYES: PERRLA, EOMI, sclera anicteric, conjunctiva pale ENT: Auricles normal inspection, hearing grossly normal, nares patent, oropharynx clear without exudates. Moist mucosa NECK: Normal ROM, supple, no lymphadenopathy, JVD, or masses LUNGS: Breath sounds equal, clear to auscultation bilaterally. No wheezes, and no crackles HEART: +irregularly irregular rate and rhythm, normal S1 and S2, no murmurs, rubs or gallops ABDOMEN: Soft, nontender, normoactive bowel sounds. No guarding, no rebound. No masses EXTREMITIES: Normal range of motion, no edema. No clubbing or cyanosis. No cords, erythema, or tenderness NEUROLOGICAL: Cranial nerves II through XII grossly intact. Normal speech, normal gait SKIN: +Large left sided chest wall scar that is well healed. Warm, Dry, normal turgor. <Sabra Reece - Last Filed: 01/19/17 14:25> ED Treatment Course - LABORATORY CBC & Chemistry Diagram: 01/19/17 12:31 01/19/17 12:31 <Sabra Reece - Last Filed: 01/19/17 14:25> - LABORATORY CBC & Chemistry Diagram: 01/19/17 12:31 01/19/17 12:31 <Prisca Cano - Last Filed: 01/19/17 16:47> Medical Decision Making - Medical Decision Making 01/19/17 14:[address] Marrero <Sabra Reece - Last Filed: 01/19/17 14:25> - Medical Decision Making 01/19/17 14:34 Results d/w Dr. Marrero, patient's primary, as well as Dr. Leal, patient's physician at her facility. Previous recommendation from Heme/onc was to transfuse if Hb less than 8 or if symptomatic (she is neither at present). Apparently the measurement at the facility was 7.5. Currently 8.4 in ED, previously 8.7. Will DC back to facility. <Prisca Cano - Last Filed: 01/19/17 16:47> *DC/Admit/Observation/Transfer - Attestations Scribe Attestion: 01/19/17 12:37 Documentation prepared by PRINCESS Dexter, acting as medical translator for Prisca Cano MD. <Sabra Reece - Last Filed: 01/19/17 14:25> - Discharge Dispostion Admit: No <Prisca Cano - Last Filed: 01/19/17 16:47> Diagnosis at time of Disposition: Decubital ulcer Qualifiers: Pressure ulcer location: sacral region Pressure ulcer stage: unspecified pressure ulcer stage Qualified Code(s): L89.159 - Pressure ulcer of sacral region, unspecified stage Anemia Qualifiers: Anemia type: unspecified type Qualified Code(s): D64.9 - Anemia, unspecified - Discharge Dispostion Disposition: [facility] Condition at time of disposition: Stable - Referrals Referrals: Rajesh Marrero MD [Primary Care Provider] - - Patient Instructions Printed Discharge Instructions: How to Prevent Pressure Ulcers
[2017-01-19 12:44] LABS: BASOPHIL 0.3 % (0-2.0); EOSINOPHIL 1.7 % (0-4.5); MCH 25.5 pg (25.7-33.7); MCHC 30.4 g/dl (32.0-36.0); MEAN CELL VOLUME 83.9 fl (80-96); MEAN PLT VOLUME 6.2 fl (7.5-11.1); NEUTROPHILS 81.4 % (42.8-82.8); PLATELET COUNT 554 K/MM3 (134-434); RDW 17.8 % (11.6-15.6); WHITE BLOOD COUNT 9.5 K/mm3 (4.0-10.0)
[2017-01-19 13:16] LABS: ALBUMIN 1.8 g/dl (3.4-5.0); ANION GAP 2 (8-16); CALCIUM 9.2 mg/dL (8.5-10.1); CO2 36 mmol/L (21-32); CREATININE 0.3 mg/dL (0.55-1.02); GLUCOSE,RANDOM 89 mg/dL (74-106); SGOT/AST 16 U/L (15-37); SGPT/ALT 14 U/L (12-78)
[2017-01-19 13:18] LABS: ALK PHOS 163 U/L (45-117); BILIRUBIN,TOTAL 0.2 mg/dL (0.2-1.0); TOT PROT 6.4 g/dl (6.4-8.2)
[2017-01-19] MEDS ORDERED: ACETAMINOPHEN 500 MG TABLET (FP) PO ONE (15:21)
[2017-01-19] MEDS ORDERED: ACETAMINOPHEN 325 MG TABLET (FP) ONE (15:43)
[2017-01-19] MEDS ORDERED: ACETAMINOPHEN 325 MG TABLET (FP) PO ONE (15:43)
[2017-01-19 16:26] VITALS: BP 94/60; PULSE 98; TEMP 98.5
--- NOTE | 2017-01-20 13:13 | EKG ---
Test Reason : Blood Pressure : / mmHG Vent. Rate : 073 BPM Atrial Rate : 073 BPM P-R Int : 128 ms QRS Dur : 064 ms QT Int : 402 ms P-R-T Axes : 106 047 191 degrees QTc Int : 442 ms SINUS RHYTHM WITH MARKED SINUS ARRHYTHMIA ABNORMAL ECG WHEN COMPARED WITH ECG OF 28-DEC-2016 09:39, ST NOW DEPRESSED IN ANTERIOR LEADS T WAVE INVERSION MORE EVIDENT IN ANTERIOR LEADS CLINICAL CORRELATION IS RECOMMENDED Confirmed by BRINDA CAMERON, JACQUELIN ([id number]) on 01/20/2017 1:13:00 PM Referred By: Confirmed By:JACQUELIN PARRY MD
== END 2017-01-19 17:37 ==
LOC: JER 12:04
DX: D64.9 Anemia, unspecified (principal); J44.9 Chronic obstructive pulmonary disease, unspecified; I48.91 Unspecified atrial fibrillation; L89.309 Pressure ulcer of unspecified buttock, unspecified stage; L89.109 Pressure ulcer of unspecified part of back, unspecified stage; G62.9 Polyneuropathy, unspecified; I69.865 Other paralytic syndrome following other cerebrovascular disease, bilateral; G82.50 Quadriplegia, unspecified; Z85.3 Personal history of malignant neoplasm of breast; Z85.830 Personal history of malignant neoplasm of bone
CPT/HCPCS: 36415; 80053; 85025; 86850; 86900; 86901; 93005; 93010; 99284-25

== ENCOUNTER 2017-01-26 17:03 | Inpatient (IN) | payer OTHER ==
[2017-01-26] MEDS ORDERED: SODIUM CHLORIDE 0.9% 1000 ML INFUS.BAG IV ONE ×2 (17:22→21:06)
[2017-01-26] MEDS ORDERED: ACETAMINOPHEN INJECTION 100 ML IVPB ONE (17:28)
[2017-01-26] MEDS ORDERED: ACETAMINOPHEN 1000 MG/100 ML VIAL (NON FORMULARY) IVPB ONE (17:57)
[2017-01-26 18:14] LABS: BASOPHIL 0.3 % (0-2.0); EOSINOPHIL 1.1 % (0-4.5); MCH 25.8 pg (25.7-33.7); MCHC 31.8 g/dl (32.0-36.0); MEAN CELL VOLUME 80.9 fl (80-96); MEAN PLT VOLUME 7.6 fl (7.5-11.1); PLATELET COUNT 448 K/MM3 (134-434); RDW 17.2 % (11.6-15.6); WHITE BLOOD COUNT 10.2 K/mm3 (4.0-10.0)
[2017-01-26 18:25] LABS: INR 1.27 (0.82-1.09); PROTHROMBIN TIME (PATIENT) 14.3 SEC (9.98-11.88)
[2017-01-26 18:28] LABS: ACTIVATED PTT 28.8 SECONDS (26.9-34.4)
[2017-01-26 18:35] LABS: ALBUMIN 1.6 g/dl (3.4-5.0); ANION GAP 9 (8-16); BILIRUBIN,TOTAL 0.2 mg/dL (0.2-1.0); CALCIUM 8.8 mg/dL (8.5-10.1); CO2 29 mmol/L (21-32); CREATININE 0.2 mg/dL (0.55-1.02); GLUCOSE,RANDOM 98 mg/dL (74-106); SGOT/AST 10 U/L (15-37); SGPT/ALT 12 U/L (12-78); TOT PROT 5.9 g/dl (6.4-8.2)
[2017-01-26 18:38] LABS: ALK PHOS 147 U/L (45-117); CPK 21 IU/L (26-192); TROPONIN I < 0.02 ng/ml (0.00-0.05)
--- NOTE | 2017-01-26 19:13 | PDOC ---
History of Present Illness <Marina Polanco - Last Filed: 01/26/17 19:41> <Holly Kirby - Last Filed: 01/26/17 19:46> - General History Source: Patient, Family Exam Limitations: No Limitations - History of Present Illness Initial Comments: 01/26/17 19:08 The patient is a 66F with a PMH of breast ca w/ mets, COPD, and stage 3 and 4 sores who presents from a nursing facility for a fever x 2 days. The patient states that she is in chronic pain 2/2 her sores and b/l lower extremity paraplegias. She had a fever of 102.3 at her correction and was told to come to the ED. Her PCP is Dr. Marrero. She denies CP, SOB, abd pain, nausea, vomiting. 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) Cardiac Disorders: Yes (afib) CVA: (Paraplegia) COPD: Yes Diabetes: No (afib hx) Psychiatric Problems: Yes (ANXIETY) - Surgical History Cardiac Surgery: Yes (AAtrial septal defect repair 1962) - Suicide/Smoking/Psychosocial Hx Smoking History: Former smoker Have you smoked in the past 12 months: Yes Number of Cigarettes Smoked Daily: 0 If you are a former smoker, when did you quit?: 08/2016 Information on smoking cessation initiated: No 'Breaking Loose' booklet given: 12/28/16 Hx Alcohol Use: No Drug/Substance Use Hx: No Substance Use Type: None Hx Substance Use Treatment: No <Jaison Rivers - Last Filed: 01/27/17 07:32> - Past Medical History Allergies/Adverse Reactions: Allergies Allergy/AdvReac Type Severity Reaction Status Date / Time epinephrine Allergy Verified 01/19/17 13:33 procaine Allergy Verified 01/19/17 13:33 sulfamethoxazole Allergy Verified 01/19/17 13:33 trimethoprim Allergy Verified 01/19/17 13:33 Home Medications: Ambulatory Orders Acetaminophen [Tylenol .Regular Strength -] 650 mg PO Q4H PRN #0 tablet Collagenase Clostridium Hist. [Santyl -] 1 applic TP DAILY tube 01/02/17 Ipratropium 0.02% Nebulizer [Atrovent 0.02% Nebulizer -] 1 amp NEB Q6H PRN #0 amp 01/02/17 Multivitamins [Multivit ([facility] Formul[facility])] 1 tab PO DAILY tab 01/02/17 Amino Acids/Protein Hydrolys [Pro-Stat Profile Liquid] 30 ml PO BID 01/19/17 Ascorbic Acid [Vitamin C -] 500 mg PO DAILY 01/19/17 Baclofen 10 mg PO BID 01/19/17 Midodrine HCl [Proamatine -] 5 mg PO TID 01/19/17 Zinc Sulfate 220 mg PO DAILY 01/19/17 Review of Systems - Review of Systems Able to Perform ROS?: Yes Comments:: 01/26/17 19:10 GENERAL/CONSTITUTIONAL: Positive for fever. No chills. No weakness. HEAD, EYES, EARS, NOSE AND THROAT: No change in vision. No ear pain or discharge. No sore throat. GASTROINTESTINAL: No nausea, vomiting, diarrhea, constipation, or abdominal pain. GENITOURINARY: No dysuria, frequency, hematuria, or change in urination. CARDIOVASCULAR: No chest pain, palpitations, or lightheadedness. RESPIRATORY: No cough, wheezing, shortness of breath, or hemoptysis. MUSCULOSKELETAL: No joint or muscle swelling or pain. No neck or back pain. SKIN: Positive for bed sores, sacral and stage 3 and 4. NEUROLOGIC: No headache, numbness, tingling, weakness, loss of consciousness, or change in strength/sensation. ENDOCRINE: No increased thirst. No abnormal weight change. HEMATOLOGIC/LYMPHATIC: No anemia, easy bleeding, or history of blood clots. ALLERGIC/IMMUNOLOGIC: No hives or skin allergy. Is the patient limited Hebrew proficient: No <Jaison Rivers - Last Filed: 01/27/17 07:32> *Physical Exam - Vital Signs Last Vital Signs Temp Pulse Resp BP Pulse Ox 98.8 F 103 H 28 H 85/62 98 01/26/17 19:31 01/26/17 19:29 01/26/17 19:29 01/26/17 19:29 01/26/17 17:33 <Marina Polanco - Last Filed: 01/26/17 19:41> - Vital Signs Last Vital Signs Temp Pulse Resp BP Pulse Ox 98.8 F 103 H 28 H 85/62 98 01/26/17 19:31 01/26/17 19:29 01/26/17 19:29 01/26/17 19:29 01/26/17 17:33 <Holly Kirby - Last Filed: 01/26/17 19:46> - Vital Signs Last Vital Signs Temp Pulse Resp BP Pulse Ox 98.7 F 123 H 30 H 84/57 98 01/26/17 17:33 01/26/17 17:33 01/26/17 17:33 01/26/17 17:33 01/26/17 17:33 - Physical Exam Comments: 01/26/17 19:11 GENERAL: Well developed, thin. Awake and alert. Mild distress. Bedbound. HEENT: Normocephalic, atraumatic. Sclera are non-icteric. CARDIOVASCULAR: Regular rate and rhythm. No murmurs, rubs, or gallops. Distal pulses are 2+ and symmetric. PULMONARY: Not in respiratory distress, but coarse lung sounds b/l. ABDOMINAL: Soft. Non-tender. Non-distended. No rebound or guarding. No organomegaly. Normoactive bowel sounds. MUSCULOSKELETAL: Normal range of motion at all joints. No bony deformities or tenderness. EXTREMITIES: No cyanosis. No clubbing. No edema. No calf tenderness. Three stage 3 (2 on iliacs) and 4 (on sacrum) ulcers on the patient's back and sacrum. SKIN: Warm and dry. Normal capillary refill. No rashes. No jaundice. NEUROLOGICAL: Alert, awake, appropriate. PSYCHIATRIC: Cooperative. Good eye contact. Appropriate mood and affect. <Jaison Rivers - Last Filed: 01/27/17 07:32> Heart Score/ECG Review - ECG Impressions Comment:: 01/26/17 19:25 T wave inversions in precordial leads, unchanged from previous EKG. <Jaison Rivers - Last Filed: 01/27/17 07:32> ED Treatment Course - LABORATORY CBC & Chemistry Diagram: 01/26/17 17:50 01/26/17 17:40 - ADDITIONAL ORDERS Additional order review: Laboratory Results 01/26/17 01/26/17 01/26/17 17:40 17:40 17:40 PT with INR 14.30 H INR 1.27 H PTT (Actin FS) 28.8 Sodium 135 L Potassium 4.1 Chloride 97 L Carbon Dioxide 29 Anion Gap 9 BUN 16 Creatinine 0.2 L D Creat Clearance w eGFR > 60 Random Glucose 98 Lactic Acid 1.1 Calcium 8.8 Total Bilirubin 0.2 AST 10 L D ALT 12 Alkaline Phosphatase 147 H Creatine Kinase 21 L Troponin I < 0.02 Total Protein 5.9 L Albumin 1.6 L 01/26/17 17:50 RBC 3.25 L MCV 80.9 MCHC 31.8 L RDW 17.2 H MPV 7.6 D Neutrophils % 78.0 Lymphocytes % 10.9 Monocytes % 9.7 Eosinophils % 1.1 Basophils % 0.3 - Medications Given in the ED: ED Medications Discontinued Medications Generic Name Dose Route Start Last Admin Trade Name Roya PRN Reason Stop Dose Admin Acetaminophen 1,000 mg 01/26/17 17:57 01/26/17 17:35 Ofirmev Injection - IVPB 01/26/17 17:58 1,000 mg ONCE ONE Administration Sodium Chloride 500 ml 01/26/17 17:22 01/26/17 19:27 Normal Saline - IV 01/26/17 17:23 500 ml ONCE ONE Administration <Marina Polanco - Last Filed: 01/26/17 19:41> - LABORATORY CBC & Chemistry Diagram: 01/26/17 17:50 01/26/17 17:40 - ADDITIONAL ORDERS Additional order review: Laboratory Results 01/26/17 01/26/17 01/26/17 17:40 17:40 17:40 PT with INR 14.30 H INR 1.27 H PTT (Actin FS) 28.8 Sodium 135 L Potassium 4.1 Chloride 97 L Carbon Dioxide 29 Anion Gap 9 BUN 16 Creatinine 0.2 L D Creat Clearance w eGFR > 60 Random Glucose 98 Lactic Acid 1.1 Calcium 8.8 Total Bilirubin 0.2 AST 10 L D ALT 12 Alkaline Phosphatase 147 H Creatine Kinase 21 L Troponin I < 0.02 Total Protein 5.9 L Albumin 1.6 L 01/26/17 17:50 RBC 3.25 L MCV 80.9 MCHC 31.8 L RDW 17.2 H MPV 7.6 D Neutrophils % 78.0 Lymphocytes % 10.9 Monocytes % 9.7 Eosinophils % 1.1 Basophils % 0.3 - Medications Given in the ED: ED Medications Discontinued Medications Generic Name Dose Route Start Last Admin Trade Name Roya PRN Reason Stop Dose Admin Acetaminophen 1,000 mg 01/26/17 17:57 01/26/17 17:35 Ofirmev Injection - IVPB 01/26/17 17:58 1,000 mg ONCE ONE Administration Sodium Chloride 500 ml 01/26/17 17:22 01/26/17 19:27 Normal Saline - IV 01/26/17 17:23 500 ml ONCE ONE Administration <Holly Kirby - Last Filed: 01/26/17 19:46> - LABORATORY CBC & Chemistry Diagram: 01/26/17 17:50 01/26/17 17:40 - ADDITIONAL ORDERS Additional order review: Laboratory Results 01/26/17 01/26/17 01/26/17 17:50 17:40 17:40 WBC 10.2 H RBC 3.25 L Hgb 8.4 L Hct 26.3 L MCV 80.9 MCH 25.8 MCHC 31.8 L RDW 17.2 H Plt Count 448 H MPV 7.6 D Neutrophils % 78.0 Lymphocytes % 10.9 Monocytes % 9.7 Eosinophils % 1.1 Basophils % 0.3 PT with INR 14.30 H INR 1.27 H PTT (Actin FS) 28.8 Lactic Acid 1.1 01/26/17 17:50 RBC 3.25 L MCV 80.9 MCHC 31.8 L RDW 17.2 H MPV 7.6 D Neutrophils % 78.0 Lymphocytes % 10.9 Monocytes % 9.7 Eosinophils % 1.1 Basophils % 0.3 - RADIOLOGY Radiology Studies Ordered: Category Date Time Status CHEST X-RAY PORTABLE* [RAD] Stat Radiology 01/26/17 17:22 Ordered <Jaison Rivers - Last Filed: 01/27/17 07:32> Medical Decision Making - Medical Decision Making 01/26/17 19:29 The patient is a 66F with an extensive PMH who presents with 2 days of fever. Septic protocol is being followed. IV tylenol has been given to the patient for pain and fever control. Pending labs and imaging. Patient signed out to Dr. Kirby. <Jaison Rivers - Last Filed: 01/27/17 07:32> *DC/Admit/Observation/Transfer <Marina Polanco - Last Filed: 01/26/17 19:41> - Discharge Dispostion Admit: Yes <Holly Kirby - Last Filed: 01/26/17 19:46> <Jaison Rivers - Last Filed: 01/27/17 07:32> Diagnosis at time of Disposition: Sepsis, Decubital ulcer
[2017-01-26] MEDS ORDERED: VANCOMYCIN 1,000 MG in DEXTROSE 5%-WATER - 250 ML IVPB ONE (19:35)
[2017-01-26] MEDS ORDERED: PIPERACILLIN/TAZOB 3.375 GM/50 ML PRE-DOCKED IVPB ONE (19:45)
--- NOTE | 2017-01-26 19:46 | PDOC ---
Attending Attestation - Resident Resident Name: NacholucaJaison - ED Attending Attestation I have performed the following: I have examined & evaluated the patient, The case was reviewed & discussed with the resident, I agree w/resident's findings & plan, Exceptions are as noted - HPI HPI: 01/26/17 19:42 66 yo F with h/o metastatic breast ca, here with c/o fever x 2 - 3 days. tmax 101. has had mild cough. also has several decubitous ulcer. no n/v no urinary symptoms. followed by dr. boyd and dr. [facility], pcp dr. handy. - Physicial Exam PE: 01/26/17 19:43 awake alert dry mucous membranes, . thin. lungs decreased left base., right clear to auscultation. heart rrr no mrg. abd soft nt nd. skin warm and dry. multiple large unstageable decubs sacrum, with tracking. no drainage. nuero alert oriented x 3. - Medical Decision Making 01/26/17 19:45 66 yo F multilpe decubs , stage four breast ca. c/o feve.r differential pneumonia, uti, bacteremial. osteo. will cover with broad spectrum antiobtiocs. cxr ua septic workup. admit . Heart Score/ECG Review #1 General ECG Interpretation: Sinus Rhythm, Normal Rate, Normal Intervals, No acute ischemic changes (TWi I, AVL, V3 - V6) Compared to previous ECG there are: No significant change ([id number])
[2017-01-26] MEDS ORDERED: VANCOMYCIN 1 GRAM (PRE-DOCKED) 250 ML IVPB ONE (20:24)
[2017-01-26] MEDS ORDERED: PIPERACILLIN/TAZOB 3.375 GM 50 ML IVPB ONE (20:25)
[2017-01-26] MEDS ORDERED: KETOROLAC TROMETHAMINE 15 MG/ML VIAL IVPUSH ONE (21:25)
[2017-01-27] MEDS ORDERED: oxyCODONE HCL 5 MG TABLET PO PRN (00:43)
[2017-01-27] MEDS ORDERED: ACETAMINOPHEN 325 MG TABLET (FP) PO PRN (00:43)
--- NOTE | 2017-01-27 09:37 | EKG ---
Test Reason : Blood Pressure : / mmHG Vent. Rate : 105 BPM Atrial Rate : 105 BPM P-R Int : 134 ms QRS Dur : 076 ms QT Int : 342 ms P-R-T Axes : 094 024 167 degrees QTc Int : 452 ms SINUS TACHYCARDIA T WAVE ABNORMALITY, CONSIDER ANTEROLATERAL ISCHEMIA ABNORMAL ECG WHEN COMPARED WITH ECG OF 19-JAN-2017 12:47, T WAVE INVERSION LESS EVIDENT IN ANTERIOR LEADS Confirmed by SHAN CAMERON, JEFF ([id number]) on 01/27/2017 9:37:31 AM Referred By: Confirmed By:JEFF TORREZ MD
--- NOTE | 2017-01-27 10:31 | HP ---
Admitting History and Physical - Primary Care Physician PCP: Rajesh Marrero - Admission Chief Complaint: FEVER/SEPSIS WORKUP History of Present Illness: 66 Y/O FEMALE HISTORY OF BREAST CANCER WITH METS, S/P THOROCOTOMY, SACRAL ULCERS STAGE 4, HYPOTENSION, WEAKNESS, DEPRESSION HERE WITH FEVER AT CUSTODIAL. History Source: Patient, Medical Record - Past Medical History CREAM DUMPER: Yes: Peripheral Neuropathy Cardiovascular: Yes: AFIB Pulmonary: Yes: COPD - Past Surgical History Past Surgical History: Yes: Cholecystectomy, Tonsillectomy - Smoking History Smoking history: Former smoker Have you smoked in the past 12 months: Yes Aproximately how many cigarettes per day: 0 If you are a former smoker, when did you quit?: 08/2016 - Alcohol/Substance Use Hx Alcohol Use: No Home Medications - Allergies Allergies/Adverse Reactions: Allergies Allergy/AdvReac Type Severity Reaction Status Date / Time epinephrine Allergy Verified 01/19/17 13:33 procaine Allergy Verified 01/19/17 13:33 sulfamethoxazole Allergy Verified 01/19/17 13:33 trimethoprim Allergy Verified 01/19/17 13:33 - Home Medications Home Medications: Ambulatory Orders Acetaminophen [Tylenol .Regular Strength -] 650 mg PO Q4H PRN #0 tablet Collagenase Clostridium Hist. [Santyl -] 1 applic TP DAILY tube 01/02/17 Ipratropium 0.02% Nebulizer [Atrovent 0.02% Nebulizer -] 1 amp NEB Q6H PRN #0 amp 01/02/17 Multivitamins [Multivit ([facility] Formul[facility])] 1 tab PO DAILY tab 01/02/17 Amino Acids/Protein Hydrolys [Pro-Stat Profile Liquid] 30 ml PO BID 01/19/17 Ascorbic Acid [Vitamin C -] 500 mg PO DAILY 01/19/17 Baclofen 10 mg PO BID 01/19/17 Midodrine HCl [Proamatine -] 5 mg PO TID 01/19/17 Zinc Sulfate 220 mg PO DAILY 01/19/17 Review of Systems - Review of Systems Constitutional: reports: Fever Eyes: reports: No Symptoms HENT: reports: No Symptoms Neck: reports: No Symptoms Cardiovascular: reports: No Symptoms Respiratory: reports: SOB Gastrointestinal: reports: No Symptoms Genitourinary: reports: Incontinence Musculoskeletal: reports: Muscle Weakness Integumentary: reports: Erythema, Wound Neurological: reports: Numbness, Parasthesia, Unsteady Gait, Weakness Endocrine: reports: No Symptoms Hematology/Lymphatic: reports: No Symptoms Psychiatric: reports: Anxiety, Other Physical Examination Vital Signs: Vital Signs Temperature 97.8 F 01/27/17 06:00 Pulse Rate 80 01/27/17 06:00 Respiratory Rate 18 01/27/17 06:00 Blood Pressure 113/67 01/27/17 06:00 O2 Sat by Pulse Oximetry (%) 100 01/26/17 21:09 Constitutional: Yes: Mild Distress Eyes: Yes: WNL HENT: Yes: WNL Neck: Yes: WNL Cardiovascular: Yes: WNL Respiratory: Yes: Diminished, On Nasal O2, SOB Gastrointestinal: Yes: WNL Musculoskeletal: Yes: Muscle Weakness Extremities: Yes: Deformity Edema: No Peripheral Pulses WNL: Yes Integumentary: Yes: Pressure Ulcer Wound/Incision: Yes: Dressing Dry and Intact Neurological: Yes: Pre-Existing Deficit, Unsteady Gait, Weakness ...Motor Strength: LLE, RLE Psychiatric: Yes: Other Imaging - Results Chest X-ray: Report Reviewed Problem List - Problems (1) Decubital ulcer Code(s): L89.90 - PRESSURE ULCER OF UNSPECIFIED SITE, UNSPECIFIED STAGE Qualifiers: (2) Sepsis Code(s): A41.9 - SEPSIS, UNSPECIFIED ORGANISM (3) Anemia Code(s): D64.9 - ANEMIA, UNSPECIFIED Qualifiers: Anemia type: unspecified type Qualified Code(s): D64.9 - Anemia, unspecified; D64.9 - Anemia, unspecified (4) Atrial fibrillation Code(s): I48.91 - UNSPECIFIED ATRIAL FIBRILLATION Qualifiers: Atrial fibrillation type: paroxysmal Qualified Code(s): I48.0 - Paroxysmal atrial fibrillation; I48.0 - Paroxysmal atrial fibrillation; I48.0 - Paroxysmal atrial fibrillation; I48.0 - Paroxysmal atrial fibrillation (5) Breast CA Code(s): C50.919 - MALIGNANT NEOPLASM OF UNSP SITE OF UNSPECIFIED FEMALE BREAST Qualifiers: Estrogen receptor status: unspecified Patient sex: female Laterality: unspecified laterality (6) COPD (chronic obstructive pulmonary disease) Code(s): J44.9 - CHRONIC OBSTRUCTIVE PULMONARY DISEASE, UNSPECIFIED Qualifiers : COPD type: unspecified COPD Qualified Code(s): J44.9 - Chronic obstructive pulmonary disease, unspecified; J44.9 - Chronic obstructive pulmonary disease, unspecified; J44.9 - Chronic obstructive pulmonary disease, unspecified; J44.9 - Chronic obstructive pulmonary disease, unspecified (7) DVT (deep venous thrombosis) Code(s): I82.409 - ACUTE EMBOLISM AND THOMBOS UNSP DEEP VN UNSP LOWER EXTREMITY (8) Hypotension Code(s): I95.9 - HYPOTENSION, UNSPECIFIED Qualifiers: Hypotension type: unspecified hypotension type Qualified Code(s): I95.9 - Hypotension, unspecified; I95.9 - Hypotension, unspecified (9) Metastatic breast cancer Code(s): C50.919 - MALIGNANT NEOPLASM OF UNSP SITE OF UNSPECIFIED FEMALE BREAST (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 Code(s): F06.30 - MOOD DISORDER DUE TO KNOWN PHYSIOLOGICAL CONDITION, UNSP (11) Psychiatric disorder Code(s): F99 - MENTAL DISORDER, NOT OTHERWISE SPECIFIED (12) Quadriplegia Code(s): G82.50 - QUADRIPLEGIA, UNSPECIFIED (13) Sacral ulcer Code(s): L98.429 - NON-PRESSURE CHRONIC ULCER OF BACK WITH UNSPECIFIED SEVERITY Qualifiers: Non-pressure ulcer stage: unspecified non-pressure ulcer stage Qualified Code(s): L98.429 - Non-pressure chronic ulcer of back with unspecified severity; L98.429 - Non-pressure chronic ulcer of back with unspecified severity; L98.429 - Non-pressure chronic ulcer of back with unspecified severity; L98.429 - Non-pressure chronic ulcer of back with unspecified severity (14) Spinal cord compression due to 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 (15) Thoracic spine fracture Code(s): S22.009A - UNSP FRACTURE OF UNSP THORACIC VERTEBRA, INIT FOR CLOS FX Assessment/Plan SEPSIS WORKUP ID CONSULT WOUND CARE SURGERYE LINDA FOR POSSIBLE SACRAL ULCER DEBRIDEMENT DVT PROPHYLAXIS STOPPED AC IN PAST BECAUSE OF GI BLEEDING AND POOR CANDIDATE FOR AC H/O ANEMIA
--- NOTE | 2017-01-27 12:53 | PN ---
Progress Note (short form) - Note Progress Note: ID consult 66 year old female NHR with metastatic breast cancer with cord compression and large decubitus ulcer admitted with fevers from [place] she has been afebrile here she is refusing exam c/o dry cough will try to return to examine her if she permits (nurse to call me) daughter is aware that she is refusing evaluation (apparently does this all the time) no fevers noted since admission will f/u cultures
[2017-01-27] MEDS: BACLOFEN 10 MG TABLET (FP) PO SCH ×2 (12:58→13:05)
[2017-01-27] MEDS: COLLAGENASE CLOSTRIDIUM HIST. 30 GRAMS TUBE TP SCH (13:01)
[2017-01-27] MEDS: IPRATROPIUM BR 0.02% 0.5 MG/2.5 ML VIAL.NEB. NEB PRN (15:32)
[2017-01-27] MEDS: ACETAMINOPHEN 500 MG TABLET (FP) PO PRN (18:22)
[2017-01-27] MEDS: MIDODRINE HCL 5 MG TABLET PO SCH (18:23)
[2017-01-27] MEDS: NYSTATIN 500,000 UNITS/5 ML SUSPENSION PO SCH (18:23)
[2017-01-27] MEDS: AMINO ACIDS/PROTEIN HYDROLYS 30 ML LIQUID.PKT PO SCH (19:36)
[2017-01-27] MEDS ORDERED: CHLORHEXIDINE GLUCONATE 0.12% 15ML CUP MM SCH (22:00)
[2017-01-28] MEDS: NYSTATIN 500,000 UNITS/5 ML SUSPENSION PO SCH ×5 (00:15→17:42)
[2017-01-28] MEDS: DOCUSATE SODIUM 100 MG CAPSULE (FP) PO SCH ×3 (00:15→21:04)
[2017-01-28] MEDS: BACLOFEN 10 MG TABLET (FP) PO SCH ×4 (00:16→21:04)
[2017-01-28] MEDS: ASCORBIC ACID 250 MG TABLET (FP) PO SCH ×4 (00:16→21:05)
[2017-01-28] MEDS: ACETAMINOPHEN 500 MG TABLET (FP) PO PRN ×4 (00:28→21:05)
[2017-01-28 07:36] LABS: MCH 25.6 pg (25.7-33.7); MCHC 31.3 g/dl (32.0-36.0); MEAN PLT VOLUME 6.7 fl (7.5-11.1); PLATELET COUNT 562 K/MM3 (134-434); RDW 17.2 % (11.6-15.6); WHITE BLOOD COUNT 7.5 K/mm3 (4.0-10.0)
[2017-01-28 08:18] LABS: ALBUMIN 1.8 g/dl (3.4-5.0); ANION GAP 8 (8-16); CALCIUM 8.8 mg/dL (8.5-10.1); CO2 31 mmol/L (21-32); GLUCOSE,RANDOM 121 mg/dL (74-106)
[2017-01-28 08:21] LABS: ALK PHOS 154 U/L (45-117); CREATININE 0.3 mg/dL (0.55-1.02); SGOT/AST 14 U/L (15-37); SGPT/ALT 14 U/L (12-78); TOT PROT 6.2 g/dl (6.4-8.2)
[2017-01-28 08:30] LABS: BILIRUBIN,TOTAL < 0.1 mg/dL (0.2-1.0)
[2017-01-28] MEDS: AMINO ACIDS/PROTEIN HYDROLYS 30 ML LIQUID.PKT PO SCH ×2 (09:59→17:43)
[2017-01-28] MEDS: MULTIVITAMINS (DAILY MVI) TABLET (FP) PO SCH (09:59)
[2017-01-28] MEDS: MIDODRINE HCL 5 MG TABLET PO SCH ×2 (09:59→17:43)
[2017-01-28] MEDS: COLLAGENASE CLOSTRIDIUM HIST. 30 GRAMS TUBE TP SCH (10:00)
[2017-01-28 10:04] LABS: ERYTHROCYTE SEDIMENTATION RATE > 130 mm/hr (0-30)
--- NOTE | 2017-01-28 10:31 | PN ---
Progress Note, Physician Chief Complaint: AWAKE C/O LEFT SHOULDER PAIN NO CHEST PAIN NO SOB - Current Medication List Current Medications: Active Medications Acetaminophen (Tylenol -) 1,000 mg PO Q6H PRN PRN Reason: PAIN Last Admin: 01/28/17 06:30 Dose: 1,000 mg Amino Acids (Prosource No Carb Liquid Pkt) 30 ml PO BID@0800,1730 [facility] Last Admin: 01/28/17 09:59 Dose: 30 ml Ascorbic Acid (Vitamin C -) 250 mg PO BID [facility] Last Admin: 01/28/17 10:01 Dose: 250 mg Baclofen (Lioresal -) 10 mg PO TID [facility] Last Admin: 01/28/17 05:37 Dose: 10 mg Collagenase (Santyl -) 1 applic TP DAILY [facility] Last Admin: 01/28/17 10:00 Dose: 1 applic Docusate Sodium (Colace -) 300 mg PO HS [facility] Last Admin: 01/28/17 00:33 Dose: Not Given Ipratropium [place] (Atrovent 0.02% Nebulizer -) 1 amp NEB Q6H PRN PRN Reason: SOB/WHEEZING Last Admin: 01/27/17 15:32 Dose: 1 amp Midodrine (Proamatine -) 5 mg PO BID-MID [facility] Last Admin: 01/28/17 09:59 Dose: 5 mg Multivitamins/Minerals/Vitamin C (Tab-A-Vit -) 1 tab PO DAILY [facility] Last Admin: 01/28/17 09:59 Dose: 1 tab Nystatin (Nystatin Oral Suspension -) 500,000 units PO Q6HPO [facility] Last Admin: 01/28/17 05:37 Dose: 500,000 units - Objective Vital Signs: Vital Signs Temperature 97.5 F L 01/28/17 06:48 Pulse Rate 73 01/28/17 06:48 Respiratory Rate 24 01/28/17 06:48 Blood Pressure 104/49 01/28/17 06:48 O2 Sat by Pulse Oximetry (%) 100 01/27/17 21:00 Constitutional: Yes: Mild Distress Eyes: Yes: WNL, Occular Prosthesis Neck: Yes: WNL Cardiovascular: Yes: WNL, Pulse Irregular Respiratory: Yes: WNL, On Nasal O2 Gastrointestinal: Yes: WNL Genitourinary: Yes: Incontinence Musculoskeletal: Yes: Muscle Weakness Extremities: Yes: Other Edema: No Peripheral Pulses WNL: Yes Integumentary: Yes: Pressure Ulcer Wound/Incision: Yes: Dressing Dry and Intact, Dressing Removed, Draining Neurological: Yes: Numbness, Pre-Existing Deficit, Unsteady Gait, Weakness ...Motor Strength: LUE, LLE, RLE Psychiatric: Yes: Other Labs: CBC, BMP 01/28/17 06:00 01/28/17 06:00 INR, PTT INR 1.27 (0.82-1.09) H 01/26/17 17:40 Problem List - Problems (1) Decubital ulcer Code(s): L89.90 - PRESSURE ULCER OF UNSPECIFIED SITE, UNSPECIFIED STAGE Qualifiers: (2) Sepsis Code(s): A41.9 - SEPSIS, UNSPECIFIED ORGANISM (3) Anemia Code(s): D64.9 - ANEMIA, UNSPECIFIED Qualifiers: Anemia type: unspecified type Qualified Code(s): D64.9 - Anemia, unspecified; D64.9 - Anemia, unspecified (4) Atrial fibrillation Code(s): I48.91 - UNSPECIFIED ATRIAL FIBRILLATION Qualifiers: Atrial fibrillation type: paroxysmal Qualified Code(s): I48.0 - Paroxysmal atrial fibrillation; I48.0 - Paroxysmal atrial fibrillation; I48.0 - Paroxysmal atrial fibrillation; I48.0 - Paroxysmal atrial fibrillation (5) Breast CA Code(s): C50.919 - MALIGNANT NEOPLASM OF UNSP SITE OF UNSPECIFIED FEMALE BREAST Qualifiers: Estrogen receptor status: unspecified Patient sex: female Laterality: unspecified laterality (6) COPD (chronic obstructive pulmonary disease) Code(s): J44.9 - CHRONIC OBSTRUCTIVE PULMONARY DISEASE, UNSPECIFIED Qualifiers : COPD type: unspecified COPD Qualified Code(s): J44.9 - Chronic obstructive pulmonary disease, unspecified; J44.9 - Chronic obstructive pulmonary disease, unspecified; J44.9 - Chronic obstructive pulmonary disease, unspecified; J44.9 - Chronic obstructive pulmonary disease, unspecified (7) DVT (deep venous thrombosis) Code(s): I82.409 - ACUTE EMBOLISM AND THOMBOS UNSP DEEP VN UNSP LOWER EXTREMITY (8) Hypotension Code(s): I95.9 - HYPOTENSION, UNSPECIFIED Qualifiers: Hypotension type: unspecified hypotension type Qualified Code(s): I95.9 - Hypotension, unspecified; I95.9 - Hypotension, unspecified (9) Metastatic breast cancer Code(s): C50.919 - MALIGNANT NEOPLASM OF UNSP SITE OF UNSPECIFIED FEMALE BREAST (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 Code(s): F06.30 - MOOD DISORDER DUE TO KNOWN PHYSIOLOGICAL CONDITION, UNSP (11) Psychiatric disorder Code(s): F99 - MENTAL DISORDER, NOT OTHERWISE SPECIFIED (12) Quadriplegia Code(s): G82.50 - QUADRIPLEGIA, UNSPECIFIED (13) Sacral ulcer Code(s): L98.429 - NON-PRESSURE CHRONIC ULCER OF BACK WITH UNSPECIFIED SEVERITY Qualifiers: Non-pressure ulcer stage: unspecified non-pressure ulcer stage Qualified Code(s): L98.429 - Non-pressure chronic ulcer of back with unspecified severity; L98.429 - Non-pressure chronic ulcer of back with unspecified severity; L98.429 - Non-pressure chronic ulcer of back with unspecified severity; L98.429 - Non-pressure chronic ulcer of back with unspecified severity (14) Spinal cord compression due to 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 (15) Thoracic spine fracture Code(s): S22.009A - UNSP FRACTURE OF UNSP THORACIC VERTEBRA, INIT FOR CLOS FX Assessment/Plan ICE PACK LEFT HSOULDER TYLENOL PRN PT EVAL AWAIT CULTURES ID AND VASC SX FOLLOW UP
--- NOTE | 2017-01-28 14:15 | PN ---
Progress Note (short form) - Note Progress Note: refusing to turn, refusing to let me see her back has pain under her left axilla nurse reports decubs extensive but clean Vital Signs Period Temp Pulse Resp BP Sys/Pressley Pulse Ox Last 24 Hr 97.4 F-98 F 73-97 18-24 81-104/49-62 100 cor-rrr lungs clear abd soft, +distention ext no edema CBC, BMP 01/28/17 06:00 01/28/17 06:00 Microbiology 01/26/17 17:35 Blood - Peripheral Venous Blood Culture - Preliminary NO GROWTH OBTAINED AFTER 24 HOURS, INCUBATION TO CONTINUE FOR 4 DAYS. 01/26/17 17:35 Blood - Peripheral Venous Blood Culture - Preliminary NO GROWTH OBTAINED AFTER 24 HOURS, INCUBATION TO CONTINUE FOR 4 DAYS. a/p afebrile since admission continue off antibiotics please call back if patient permits us to be involved in her care
--- NOTE | 2017-01-28 14:35 | CONS ---
DATE OF CONSULTATION: DATE OF DICTATION: 01/28/2017 REQUESTED BY: Rajesh Marrero MD I attempted to originally attempted to see the patient on January 27. She is a 66-year-old woman with metastatic breast cancer with cord compression, nonambulatory with stage IV ulcers, who resides at the shelter. She was sent with fever from the shelter. I was asked to evaluate her. When I saw her yesterday, she permitted only a limited examination of her heart and lungs. She refused to be turned in order to see her decubitus. The nurses as well had not seen her decubitus and she insisted this be done at a later time. I tried to return at a later time to examine it; unfortunately, by the time I returned, the nurse had already done the dressing and I was not able to examine her. This has, again, happened today and the patient is refusing, of course, a redo of her dressings today. She is afebrile and has had no fever whatsoever in the hospital. PAST MEDICAL HISTORY: History of breast cancer with metastasis and spinal cord compression. She has stage IV sacral ulcers. She has atrial fibrillation. She is paraplegic due to the cord compression. Has history of COPD, history of atrial fibrillation and anxiety. She has a history of thoracotomy as well, the details of which I do not know. She is allergic to NOREPINEPHRINE and BACTRIM. MEDICATIONS AT THE [facility]: Zinc, midodrine, baclofen, vitamin C, multivitamins. FAMILY HISTORY: Noncontributory. SOCIAL HISTORY: She has a very involved daughter who is well-aware that her mother is intermittently cooperative with her care. She has apparently been transferred to a new shelter. PHYSICAL EXAMINATION: Vital Signs: She is afebrile, temperature is 97.5, pulse is 73, blood pressure 104/79, respiratory rate is 24. She is saturating 100% on 2 L. HEENT: She is normocephalic. Eyes are anicteric. There is no thrush. Neck: Supple. Lungs: Clear to auscultation. Abdomen: Soft, nontender. Back: I cannot turn her, as she has extreme pain, and she is refusing. White count is 7.5, hemoglobin 8.4, platelets of 562. Her BUN is 19, creatinine is 0.3. Her blood cultures are negative at this point. Her chest x-ray has no infiltrate. SUMMARY: Unfortunately, I am not able to be of much help, as the patient is not permitting an examination. She was admitted for fever, which appears to be resolved. I would suggest, perhaps, the wound care doctor who is following her for her wound care return to examine her and please call back if we can be of further assistance, as the patient is not permitting us to be involved in her care. ASHLI SHAHID M.D. [id number]
[2017-01-28] MEDS: IPRATROPIUM BR 0.02% 0.5 MG/2.5 ML VIAL.NEB. NEB PRN (17:21)
[2017-01-28] MEDS ORDERED: PT OWN MED DRAWER 7, Y5N ONE (17:29)
[2017-01-29] MEDS: NYSTATIN 500,000 UNITS/5 ML SUSPENSION PO SCH ×4 (02:12→17:37)
[2017-01-29] MEDS: ACETAMINOPHEN 500 MG TABLET (FP) PO PRN ×4 (07:01→22:59)
[2017-01-29] MEDS: BACLOFEN 10 MG TABLET (FP) PO SCH ×3 (07:02→22:59)
[2017-01-29 08:10] LABS: MCH 25.9 pg (25.7-33.7); MCHC 31.8 g/dl (32.0-36.0); MEAN CELL VOLUME 81.3 fl (80-96); MEAN PLT VOLUME 6.6 fl (7.5-11.1); PLATELET COUNT 516 K/MM3 (134-434); WHITE BLOOD COUNT 7.3 K/mm3 (4.0-10.0)
[2017-01-29 08:29] LABS: ALBUMIN 1.6 g/dl (3.4-5.0); ANION GAP 5 (8-16); CALCIUM 8.5 mg/dL (8.5-10.1); CO2 34 mmol/L (21-32); GLUCOSE,RANDOM 90 mg/dL (74-106)
[2017-01-29 08:36] LABS: ALK PHOS 145 U/L (45-117); BILIRUBIN,TOTAL 0.1 mg/dL (0.2-1.0); C-REACTIVE PROTEIN 10.4 MG/DL (0.00-0.3); CREATININE < 0.2 mg/dL (0.55-1.02); SGOT/AST 15 U/L (15-37); SGPT/ALT 15 U/L (12-78); TOT PROT 5.6 g/dl (6.4-8.2)
[2017-01-29] MEDS ORDERED: PT OWN MED DRAWER 7, Y5N ONE (10:40)
[2017-01-29] MEDS: COLLAGENASE CLOSTRIDIUM HIST. 30 GRAMS TUBE TP SCH (10:45)
[2017-01-29] MEDS: ASCORBIC ACID 250 MG TABLET (FP) PO SCH ×2 (10:45→22:58)
[2017-01-29] MEDS: MIDODRINE HCL 5 MG TABLET PO SCH ×2 (10:47→17:35)
[2017-01-29] MEDS: MULTIVITAMINS (DAILY MVI) TABLET (FP) PO SCH (10:47)
[2017-01-29] MEDS: AMINO ACIDS/PROTEIN HYDROLYS 30 ML LIQUID.PKT PO SCH ×2 (12:58→17:28)
--- NOTE | 2017-01-29 16:09 | DS ---
Physical Examination Vital Signs: Vital Signs Temperature 97.9 F 01/29/17 15:31 Pulse Rate 84 01/29/17 15:31 Respiratory Rate 18 01/29/17 15:31 Blood Pressure 84/53 01/29/17 15:31 O2 Sat by Pulse Oximetry (%) 100 01/29/17 11:09 Findings/Remarks: family bedside Constitutional: Yes: Mild Distress Eyes: Yes: WNL HENT: Yes: WNL Neck: Yes: WNL Cardiovascular: Yes: Pulse Irregular Respiratory: Yes: WNL Gastrointestinal: Yes: WNL Musculoskeletal: Yes: Muscle Weakness Extremities: Yes: Deformity Edema: No Peripheral Pulses WNL: Yes Integumentary: Yes: Pressure Ulcer Wound/Incision: Yes: Dressing Dry and Intact Neurological: Yes: Pre-Existing Deficit, Weakness ...Motor Strength: LUE, LLE, RUE, RLE Psychiatric: Yes: Agitated Labs: CBC, BMP 01/29/17 07:00 01/29/17 07:00 Discharge Summary Reason For Visit: SEPSIS Current Active Problems Decubital ulcer (Acute) Sepsis (Acute) Procedures: Principal: blood cultures.labs Hospital Course: admitted with fever/sepsis/weakness workup, given ivf, abx, and will dc back to snf Condition: Fair - Instructions Diet, Activity, Other Instructions: soft diabetic follow with wound team aggressive physical therapy Referrals: Rajesh Marrero MD [Primary Care Provider] - Disposition: [facility]ARE HOME [facility]ACILITY - Home Medications Comprehensive Discharge Medication List: Ambulatory Orders Acetaminophen [Tylenol .Regular Strength -] 650 mg PO Q4H PRN #0 tablet Collagenase Clostridium Hist. [Santyl -] 1 applic TP DAILY tube 01/02/17 Ipratropium 0.02% Nebulizer [Atrovent 0.02% Nebulizer -] 1 amp NEB Q6H PRN #0 amp 01/02/17 Multivitamins [Multivit ([facility] Formulary)] 1 tab PO DAILY tab 01/02/17 Amino Acids/Protein Hydrolys [Pro-Stat Profile Liquid] 30 ml PO BID 01/19/17 Ascorbic Acid [Vitamin C -] 500 mg PO DAILY 01/19/17 Baclofen 10 mg PO BID 01/19/17 Midodrine HCl [Proamatine -] 5 mg PO TID 01/19/17 Zinc Sulfate 220 mg PO DAILY 01/19/17 Nystatin Oral Suspension - [Nystatin Oral Susp 161278 Units/5 ML -] 500,000 units PO Q6HPO bottle 01/29/17
[2017-01-29] MEDS: DOCUSATE SODIUM 100 MG CAPSULE (FP) PO SCH (22:59)
[2017-01-29] MEDS: IPRATROPIUM BR 0.02% 0.5 MG/2.5 ML VIAL.NEB. NEB PRN (23:47)
[2017-01-30] MEDS: NYSTATIN 500,000 UNITS/5 ML SUSPENSION PO SCH ×3 (02:59→11:09)
[2017-01-30] MEDS: ACETAMINOPHEN 500 MG TABLET (FP) PO PRN ×2 (05:49→11:52)
[2017-01-30] MEDS: BACLOFEN 10 MG TABLET (FP) PO SCH (05:50)
[2017-01-30 07:39] VITALS: BP 92/60
[2017-01-30] MEDS ORDERED: PT OWN MED DRAWER 7, Y5N ONE (10:32)
[2017-01-30] MEDS: COLLAGENASE CLOSTRIDIUM HIST. 30 GRAMS TUBE TP SCH (10:46)
[2017-01-30] MEDS: ASCORBIC ACID 250 MG TABLET (FP) PO SCH (10:49)
[2017-01-30] MEDS: MIDODRINE HCL 5 MG TABLET PO SCH (10:49)
[2017-01-30] MEDS: MULTIVITAMINS (DAILY MVI) TABLET (FP) PO SCH (10:49)
[2017-01-30] MEDS: AMINO ACIDS/PROTEIN HYDROLYS 30 ML LIQUID.PKT PO SCH (10:49)
[2017-01-30 11:46] VITALS: TEMP 97.7
[2017-01-30 13:24] VITALS: PULSE 101
[2017-01-30] MEDS: IPRATROPIUM BR 0.02% 0.5 MG/2.5 ML VIAL.NEB. NEB PRN (13:25)
== END 2017-01-30 13:44 | DRG 871 ==
LOC: JER 17:03 → JERBED 19:57 → J8W 22:34
PROVIDERS: ADMIT Family Medicine; ATTEND Family Medicine
DX: A41.9 Sepsis, unspecified organism (principal); G82.50 Quadriplegia, unspecified; L89.154 Pressure ulcer of sacral region, stage 4; C79.51 Secondary malignant neoplasm of bone; G95.20 Unspecified cord compression; D64.9 Anemia, unspecified; I48.0 Paroxysmal atrial fibrillation; J44.9 Chronic obstructive pulmonary disease, unspecified; I95.9 Hypotension, unspecified; F06.30 Mood disorder due to known physiological condition, unspecified; F99 Mental disorder, not otherwise specified; C50.919 Malignant neoplasm of unspecified site of unspecified female breast; Z87.891 Personal history of nicotine dependence
CPT/HCPCS: 36415; 71010-TC; 80053; 82550; 82803; 83605; 84484; 85025; 85027; 85610; 85651; 85730; 86140; 86850; 86900; 86901; 87040; 87086; 87186; 93005; 93010; 94640; 99283-25; J0475